=== PATIENT | male | born 1940 | race Caucasian/White ===

== ENCOUNTER → 2017-09-29 | Outpatient (CLI) | payer OTHER ==
--- NOTE | 2017-09-30 11:33 | RSPPFT ---
DATE OF PROCEDURE: 09/29/17 COMMENTS: VOLUMES DYNAMIC: FVC mildly reduced; FEV1 moderately reduced. STATIC: RV severely increased; FRC moderately increased; TLC normal. FLOWS: FEV1% and FEF 25-75 severely reduced. DIFFUSION: Moderately reduced. FLOW VOLUME LOOP: Pattern of variable intrathoracic airways obstruction. IMPRESSION: Moderate to severe obstructive ventilatory defect with reduction in diffusion and hyperinflation consistent with emphysema. There is improvement post-bronchodilator.
== END ==
LOC: PHRSP 08:28
PROVIDERS: ATTEND Internal Medicine
DX: J44.9 Chronic obstructive pulmonary disease, unspecified (principal)
CPT/HCPCS: 94060; 94620; 94726; 94729

== ENCOUNTER 2018-02-05 08:00 | Day surgery (SDC) | payer OTHER ==
[~2018-02-05] VITALS: Ht 162.6 cm; Wt 75.9 kg
[2018-02-05] MEDS ORDERED: IOHEXOL 350 MG/ML 50 ML BTL (for Cath Lab) OTHER ONE (08:01)
[2018-02-05 08:55] VITALS: BP 159/89; PULSE 76; RESP 18; TEMP 97.9; O2SAT 96
[2018-02-05 08:58] LABS: AUTOMATED NEUTROPHIL # 3.9 TH/MM3 (1.8-7.7); BASOPHIL % 0.7 % (0.0-2.0); EOSINOPHIL # 0.2 TH/MM3 (0-0.4); EOSINOPHIL % 3.9 % (0.0-4.0); HEMATOCRIT 44.2 % (39.0-51.0); HEMOGLOBIN 14.8 GM/DL (13.0-17.0); LYMPH % 23.6 % (9.0-44.0); LYMPHOCYTE # 1.4 TH/MM3 (1.0-4.8); MEAN CORPUSCULAR HEMOGLOBIN 30.1 PG (27.0-34.0); MEAN CORPUSCULAR HGB CONC 33.5 % (32.0-36.0); MEAN PLATELET VOLUME 9.7 FL (7.0-11.0); MONO % 6.5 % (0.0-8.0); MONOCYTE # 0.4 TH/MM3 (0-0.9); NEUT % 65.3 % (16.0-70.0); PLATELET COUNT 216 TH/MM3 (150-450); RED BLOOD COUNT 4.92 MIL/MM3 (4.50-5.90); RED CELL DISTRIBUTION WIDTH 14.1 % (11.6-17.2)
[2018-02-05] MEDS ORDERED: NS 1000P @30 MLS/HR (KVO) IV SCH (09:00)
[2018-02-05] MEDS ORDERED: RANI150T PO (09:08)
[2018-02-05] MEDS ORDERED: VITA100018 PO (09:08)
[2018-02-05] MEDS ORDERED: SYMB160A INH (09:08)
[2018-02-05] MEDS ORDERED: VENTAER INH (09:08)
[2018-02-05] MEDS ORDERED: SITA1TAB2 PO (09:08)
[2018-02-05] MEDS ORDERED: OMEGCAP PO (09:08)
[2018-02-05] MEDS ORDERED: LISI20TA PO (09:08)
[2018-02-05] MEDS ORDERED: ECASA81 PO (09:08)
[2018-02-05 09:09] LABS: INTERNATIONAL NORMALIZED RATIO 1.1 RATIO
[2018-02-05 09:12] LABS: BICARBONATE 28.5 MEQ/L (21.0-32.0); CALCIUM 9.3 MG/DL (8.5-10.1); CREATININE 1.32 MG/DL (0.60-1.30)
[2018-02-05] MEDS ORDERED: VERAPAMIL HCL 5 MG/2 ML VIAL ONE (10:06)
[2018-02-05] MEDS ORDERED: HEPARIN SODIUM - IV 10,000 UNITS/10 ML VIAL ONE (10:06)
[2018-02-05] MEDS ORDERED: HEPARIN-NS/PF FLUSH BAG 2,000 ML IV FLUSH ONE (10:06)
[2018-02-05] MEDS ORDERED: NITROGLYCERIN INJ 5 ML ONE (10:06)
[2018-02-05] MEDS ORDERED: MIDAZOLAM HCL 2 MG/2 ML VIAL ONE (10:16)
--- NOTE | 2018-02-05 11:27 | CATHPROC ---
[employer] HIS Report Study Information Study Number Admission Scheduled Start Study Start [id number] Feb 05 2018 8:00AM 02/05/2018 Feb 05 2018 9:13AM [facility] Cardiac Catheterization Admit Source Facility Department Other [facility] - Gas Technician Physician and Clinical Staff Initial Praful Capellan Mixed Crop Farmer Rocio Madrigal RN Other cathlab, cathlab Recorder Mikhail Caraballo RCIS(BS) Scrub Liz ErvinRT(R) Procedures Performed Procedure Location (Site) Vessel Name Coronary Angiograms LCA Left Coronary Coronary Angiograms RCA Right Coronary Equipment Time Practice Advisor Description Size Mfg Part Number Used/Scraped CATHETER, FR5 SWAN NUHA 09:59 [employer] FR 5 [id number] *[id number] Used MONITOR TRANSDUCER, TRUWAVE [id number] 09:59 [employer] * Used W/STOCKCOCK *[id number] [id number] *[id number] [id number] *[id number] 09:59 [employer] PACK, CCL CUSTOM * Used *[id number] 09:59 [employer] SUPPORT, ARTERIAL ADULT [id number] *[id number] Used BAND, RADIAL COMPRESSION TR [id number] 11:02 [employer] 24CM Used SHORT 24 *[id number] 09:59 [employer] WIRE, EXCHANGE 260CM 3MMJ 260CM Used *[id number] PROBE COVER, STERILE [id number] 09:59 [employer] MEDICAL * Used ULTRASOUND W/ GEL *[id number] 09:59 NAMIC MANIFOLD, 4 PORT * Used *[id number] 09:59 [employer]ED OMNIPAQUE, 350 MG, 150ML 150ML [id number] Used [id number] 09:59 [facility] BLANKET,WARM AIR CCL * Used *[id number] SHEATH, FR6 TRANSRADIAL RM*[id number] 09:59 [employer] FR 6 Used SLENDER 10CM *[id number] SHEATH, FR6 TRANSRADIAL RM*[id number] 09:59 [employer] FR 6 Used SLENDER 10CM *[id number] Equipment Model, Serial, Lot Number and Expiration Data Description Model Number Serial Number Lot Number Expiration Date BAND, RADIAL COMPRESSION TR [id number] 12-10-2020 SHORT 24 History: Allergies Allergy Reaction Erfcfqk-Mju-Xwf Reductase MUSCLE ACHES Inhibitor History: Risk Factors Family History of Hypertension Dyslipidemia Previous MO Previous Heart Failure Premature CAD Yes Yes Yes Yes Yes Prior Valve Prior PCI Prior PCIDate Prior CABG Surgery No Yes 11/10/2012 No Cerebrovascular Peripheral Artery Chronic Lung On Dialysis Diabetes Disease Disease Disease No No No No No History: Symptoms/Diagnosis Selection Items SOB History: Stress Tests Stress or Imaging Studies Performed No History: Other Disease Selection Items CAD HTN History: MO/CV Data Previous Cath Date 11/10/2012 History: Other Current Smoker Method Quit Packs a Day Years Used Pack Years No Cigarettes 5 Years Ago 2 40 80 Labs Hgb (g/dl) Hct (%) WBC (l/cumm) Platelets (thousands) 11.60-17.00 35.00-51.00 4.00-11.00 150.00-450.00 14.8 44.2 6 216 Creatinine (mg/dl) 0.50-1.30 1.3 INR (PTT:PT) 0.90-1.10 1.1 Medication Medication Total Dose (Bolus/Oral) Medication Total Dosage/Unit 1% XYLOCAINE 6 mL FENTANYL 50 mcg RADIAL COCKTAIL 5 mL (Bolus) Medications (Bolus/Oral) Medication Time Given Dosage/Unit Administered By Reason 1% XYLOCAINE 02/05/2018 10:40:33 AM 3 mL Praful Eduardo 3 mL 1% XYLOCAINE given in lab by Praful Eduardo in Right Radial via Subcutaneous. FENTANYL 02/05/2018 10:41:23 AM 50 mcg Rocio Madrigal 50 mcg FENTANYL given in lab by Rocio Madrigal, RN in Left Antecubital via Peripheral IV. Ordered by Praful Eduardo. Ntg 200mcg Verapamil 2.5mg Heparin RADIAL COCKTAIL 02/05/2018 10:42:13 AM 5 mL (Bolus) Praful Eduardo 3000U 5 mL (Bolus) RADIAL COCKTAIL given in lab by Praful Eduardo in Right Radial via Radial. Using [S olution Name]. Reason: Ntg 200mcg Verapamil 2.5mg Heparin 3000U. 1% XYLOCAINE 02/05/2018 10:44:10 AM 3 mL Praful Eduardo 3 mL 1% XYLOCAINE given in lab by Praful Eduardo in Right Antecubital via Subcutaneous. Medication (Drip) Medication Time Given Dosage/Unit Concentration/Unit Diluent (ml) Solutio n IV Solutions 02/05/2018 10:05:33 AM 0 mL (IV) 500 NaCl .9 Patient arrived on IV Solutions given by cathlab, cathlab in Left Antecubital via Peripheral IV. Pump /Drip Flow = 20 ml/hr using NaCl .9. Ordered by Praful Eduardo Initial Case Assessment Cardiovascular HR Rhythm NIBP Chest Pain 75 nsr 105/50 0 Edema Present Skin color Skin None Normal Warm Dry Circulatory - Right Pulses Dorsalis Pedis Femoral Radial 1 2 2 Scale (0,1,2,3,4,d) Circulatory - Left Pulses Dorsalis Pedis Femoral Radial 1 2 Scale (0,1,2,3,4,d) Neurological State Oriented to time-place- Alert Moves all extremities person Respiration - General Respiration Rate SpO2 (%) (B/min) 15 98 Final Case Assessment Cardiovascular HR Rhythm NIBP Chest Pain 68 nsr 152/79 0 Edema Present Skin color Skin None Normal Warm Dry Circulatory - Right Pulses Dorsalis Pedis Femoral Radial 1 2 2 Scale (0,1,2,3,4,d) Circulatory - Left Pulses Dorsalis Pedis Femoral Radial 1 2 Scale (0,1,2,3,4,d) Neurological State Oriented to time-place- Alert Moves all extremities person Respiration - General Respiration Rate SpO2 (%) (B/min) 15 98 Chronological Log Time Study Chronological Log 10:05:24 Patient arrived via Bed. 10:05:24 Patient Name, D.O.B, / Armband Verified By R.N. 10:05:25 Consent signed by the physician and the patient and verified by the Gas Technician staff. 10:05:25 Pre-op and post- op instructions given; patient acknowledges understanding of instructions. 10:05:26 Verbal Stimulation=2 Physical Stimulation=2 Airway=2 Respiration=2 TOTAL=8. (0=absent, 1=li mited, 2=present) 10:05:27 Presedation assessment performed by Gas Technician RN. 10:05:27 Allens test performed on the right radial and ulnar artery. 10:05:28 Immediate Presedation assesment performed by physician. 10:05:28 Patient has been NPO for More than 6Hrs. 10:05:29 Skin Breakdown- none per patient 10:05:30 Patient Warmer Placed on the Table. 10:05:30 Mitesh Prominences Protected 10:05:32 A # 20 IV was noted in the Antecubital (left). Grade = 0 Patient arrived on IV Solutions given by cathlab, cathlab in Left Antecubital via Peripheral IV . Pump/Drip Flow = 20 10:05:33 ml/hr using NaCl .9. Ordered by Praful Eduardo 10:05:33 History and physical on the chart or being dictated. Vitals capture started with the following parameters, Patient=Adult, Interval=5 min, Initial Pr dwxife=814 mmHg, 10:11:17 Deflation Rate=5 mmHg, Cuff placed on Unknown Assessment: Initial Case, HR=75 BPM, Rhythm=nsr, PLHZ=438/50 mmhg, Chest Pain=0, Edema=None, [place]=Normal, Skin = Warm, Dry Right Pulses: Roger Ped=1, Femoral=2, Radial=2 10:11:18 Left Pulses: Roger Ped=1, Femoral=2 Neurological: State=Alert, Ox3, WINKLER Respiration: Resp=15 B/min, SpO2=98 % 10:11:32 Reference ECG taken 10:11:59 HR=53 bpm, VAJO=500/50 mmhg, SpO2=97.0 %, Resp=19 B/min, Pain=0, Kelli=10, Sweeney=2 10:14:49 Right radial, right brachial, and groin(s) prepped with 2% chlorhexidine, and draped after a 3 min. waiting time. 10:17:18 HR=54 bpm, PARA=961/87 mmhg, SpO2=96.0 %, Resp=13 B/min, Pain=0, Kelli=10, Sweeney=2 10:21:55 HR=55 bpm, BJHL=675/83 mmhg, SpO2=97.0 %, Resp=13 B/min, Pain=0, Kelli=10, Sweeney=2 10:24:00 MD paged 10:26:00 Pressure channel 1 zeroed. 10:26:54 HR=61 bpm, JVWF=725/89 mmhg, SpO2=96.0 %, Resp=15 B/min, Pain=0, Kelli=10, Sweeney=2 10:31:57 HR=58 bpm, VZCP=391/87 mmhg, SpO2=98.0 %, Resp=14 B/min, Pain=0, Kelli=10, Sweeney=2 10:35:56 MD arrived. 10:35:58 Contrast Scanned 10:35:59 Immediate Presedation assesment performed by physician. 10:36:56 HR=60 bpm, XRZV=191/84 mmhg, SpO2=97.0 %, Resp=17 B/min, Pain=0, Kelli=10, Sweeney=2 Time Out. Correct patient, correct procedure, correct physician, power injector not loaded with contrast with surgical 10:40:04 team present. Time Out Concurred by MD and individual staff in procedure. :: Case Start :: Verbal Stimulation=2 Physical Stimulation=2 Airway=2 Respiration=2 TOTAL=8. (0=absent, 1=li mited, 2=present) 10:40:33 3 mL 1% XYLOCAINE given in lab by Praful Eduardo in Right Radial via Subcutaneous. 50 mcg FENTANYL given in lab by Rocio Madrigal RN in Left Antecubital via Peripheral IV. Order ed by Jayce, 10:41:23 Praful Anderson. 10::54 Access site was Right Radial Artery. 10:42:01 HR=57 bpm, ZJQX=251/84 mmhg, SpO2=97.0 %, Resp=15 B/min, Pain=0, Kelli=10, Sweeney=2 A SHEATH, FR6 TRANSRADIAL SLENDER 10CM FR 6 was advanced into the Radial (right) using the Perc utaneous 10:42:02 technique. 5 mL (Bolus) RADIAL COCKTAIL given in lab by Praful Eduardo in Right Radial via Radial. Us ing [Solution Name]. 10:42:13 Reason: Ntg 200mcg Verapamil 2.5mg Heparin 3000U. 10:44:10 3 mL 1% XYLOCAINE given in lab by Praful Eduardo in Right Antecubital via Subcutaneous . 10:46:27 Access site was Right Brachial Vein. A SHEATH, FR6 TRANSRADIAL SLENDER 10CM FR 6 was advanced into the Brach. Vein (right) using the Percutaneous :46:37 technique. 10:46:54 A CATHETER, FR5 SWAN NUHA MONITOR FR 5 was inserted via Brach. Vein (right) 10:47:02 HR=75 bpm, EPKS=724/79 mmhg, SpO2=94.0 %, Resp=17 B/min, Pain=0, Kelli=10, Sweeney=2 Recorded Pressure: PCW, HR=78, Condition=Condition 1 10:48:39 (Pulmonary Capillary Wedge) PCW 10:50:00 Saturation: Site=PA (Pulmonary Artery) , O2=75.9 %, Hgb=14.8 gm/dl, Condition=Condition 1. Used in calculation. Recorded Pressure: MPA, HR=72, Condition=Condition 1 10:50:52 (Main Pulmonary Artery) MPA 34 10:51:06 Saturation: Site=Ao (Aorta) , O2=97.4 %, Hgb=14.8 gm/dl, Condition=Condition 1. Used in sabiha culation. Recorded Pressure: RV, HR=61, Condition=Condition 1 10:52:05 (Right Ventricle) RV 36 10:52:30 HR=66 bpm, PVCY=473/79 mmhg, SpO2=94.0 %, Resp=16 B/min, Pain=0, Kelli=10, Sweeney=2 Recorded Pressure: RA, HR=66, Condition=Condition 1 10:52:30 (Right Atrium) RA 12 10:52:48 Rentz Nuha Catheter Removed A JR 4.0 INFINITI CATHETER FR 5 was advanced over a wire. OMNIPAQUE, 350 MG, 150ML 150ML was us ed for 10:52:48 injections. Recorded Pressure: Ao, HR=73, Condition=Condition 1 10:55:12 (Aorta) Ao 142/69/99 10:55:38 The RCA was injected and visualized at various angles. OMNIPAQUE, 350 MG, 150ML 150ML used . After removing the current catheter a JL 3.5 INFINITI CATHETER FR 5 was advanced over a WIRE, E XCHANGE 260CM 10:56:39 3MMJ 260CM. 10:57:35 HR=80 bpm, MYLO=598/94 mmhg, SpO2=95.0 %, Resp=16 B/min, Pain=0, Kelli=10, Sweeney=2 10:59:06 The LCA was injected and visualized at various angles. OMNIPAQUE, 350 MG, 150ML 150ML used . 11:01:59 HR=74 bpm, AFXV=637/79 mmhg, SpO2=96.0 %, Resp=15 B/min, Pain=0, Kelli=10, Sweeney=2 11:03:00 Catheter was removed 11:03:04 Activated Clotting Time Drawn 11:03:44 Case End Assessment: Final Case, HR=68 BPM, Rhythm=nsr, UYTN=215/79 mmhg, Chest Pain=0, Edema=None, [place]=Normal, Skin = Warm, Dry Right Pulses: Roger Ped=1, Femoral=2, Radial=2 11:03:52 Left Pulses: Roger Ped=1, Femoral=2 Neurological: State=Alert, Ox3, WINKLER Respiration: Resp=15 B/min, SpO2=98 % 11:04:08 No case complications noted. 11:04:08 Cine recording checked. 11:04:10 Bedside Report will be given. Radial Compression Device Used. 13 mLs of air placed in BAND, RADIAL COMPRESSION TR SHORT 24 24 CM. Affected 11:04:14 hand 95 % O2 saturation. 11:04:27 Verbal Stimulation=2 Physical Stimulation=2 Airway=2 Respiration=2 TOTAL=8. (0=absent, 1=li mited, 2=present) 11:04:34 A Left and Right Heart Cath was performed. 11:07:06 HR=74 bpm, NIBP=80/55 mmhg, SpO2=95 %, Resp=15 B/min, Pain=0, Kelli=10, Sweeney=2 11:07:25 ACT (Normal Range 90-180) = 234 Vitals capture started with the following parameters, Patient=Adult, Interval=5 min, Initial Pr avrcyu=960 mmHg, 11:08:44 Deflation Rate=5 mmHg, Cuff placed on Unknown 11:10:35 HR=68 bpm, DNOY=062/64 mmhg, SpO2=95 %, Resp=16 B/min, Pain=0, Kelli=10, Sweeney=2 11:14:53 HR=62 bpm, XOIJ=787/77 mmhg, Resp=16 B/min, Pain=0, Kelli=10, Sweeney=2 11:15:34 Vitals capture stopped. 11:15:47 Patient moved to stretcher End Study - Contrast Media Used In Study Contrast Total Opened (mL) Total Used (mL) Total Wasted (mL) Omnipaque 50 50 0 End Study - Maximum Contrast Load Max Contrast Load (mL) 292.0 End Study - Radiation Exposure Fluoro Time (minutes) 3.3 End Study - Patient Disposition Complications Transferred To Interventional Outcome No Gas Technician Holding No attempt made
[2018-02-05] MEDS ORDERED: MISC INFORMATION XX ONE (11:30)
[2018-02-05] MEDS ORDERED: PAPAVERINE INJ 60 MG, NITROGLYCERIN INJ 100 MCG, DILTIAZEM INJ 100 MG in SODIUM CHLORID... IRRIGATION SCH (14:45)
[2018-02-05 14:57] LABS: BILIRUBIN, URINE NEG (NEG); BLOOD, URINE NEG (NEG); GLUCOSE,URINE NEG (NEG); KETONE, URINE NEG (NEG); NITRITE,URINE NEG (NEG); PH, URINE 6.5 (5.0-8.5); SQUAMOUS EPITHELIAL CELL URINE <1 /hpf (0-5); URINE COLOR YELLOW (YELLW/STRAW); URINE LEUKOCYTE ESTERASE NEG (NEG)
[2018-02-05 15:17] LABS: ALBUMIN 3.3 GM/DL (3.4-5.0); ALT (GPT) 20 U/L (12-78); AST (GOT) 11 U/L (15-37); DIRECT BILIRUBIN ADULT 0.1 MG/DL (0.0-0.2)
[2018-02-05 15:18] LABS: ALKALINE PHOSPHATASE 101 U/L (45-117); INDIRECT BILIRUBIN 0.3 MG/DL (0.0-0.8); TOTAL BILIRUBIN ADULT 0.4 MG/DL (0.2-1.0); TOTAL PROTEIN 7.4 GM/DL (6.4-8.2)
--- NOTE | 2018-02-05 15:52 | RADRPT ---
EXAM DATE/TIME: 02/05/2018 14:53 [facility] COMPARISON: No previous studies available for comparison. INDICATIONS : PreOp Cardiac surgery. MEDICAL HISTORY : Hypertension. Chronic obstructive pulmonary disease. Carcinoma, prostate. Coronary artery disease. Di abetes. Dyspnea. Respiratory infection. Aortic stenosis. SURGICAL HISTORY : None. ENCOUNTER: Initial ACUITY: 1 day PAIN SCORE: 0/10 LOCATION: Bilateral legs. TECHNIQUE: Venous ultrasound of the left and right leg was performed from the inguinal ligament to the proximal calf. Real-time, color Doppler and spectral tracing, compression and augmentation techniques were us ed. FINDINGS: RIGHT LEG: There is normal compressibility of the deep venous system from the inguinal region to the proximal ca lf. No echogenic clot is seen in the lumen of the common femoral, femoral, popliteal, and posterior tibial veins. There is a normal response of the venous system to proximal and distal augmentation an d respiration. LEFT LEG: There is normal compressibility of the deep venous system from the inguinal region to the proximal ca lf. No echogenic clot is seen in the lumen of the common femoral, femoral, popliteal, and posterior tibial veins. There is a normal response of the venous system to proximal and distal augmentation an d respiration. CONCLUSION: 1. No evidence of deep venous thrombosis. Efrain Yu MD on February 05, 2018 at 15:47 Board Certified Radiologist. This report was verified electronically.
--- NOTE | 2018-02-05 15:52 | RADRPT ---
EXAM DATE/TIME: 02/05/2018 15:00 [facility] COMPARISON: No previous studies available for comparison. INDICATIONS : PreOp cardiac surgery. MEDICAL HISTORY : Coronary artery disease. Diabetes. Dyspnea. Respiratory infection. Aortic stenosis. SURGICAL HISTORY : None. ENCOUNTER: Initial ACUITY: 1 day PAIN SCORE: 0/10 LOCATION: Bilateral legs. GREATER SAPHENOUS VEIN THIGH: PROXIMAL: Right 6 mm Left 6 mm MID: Right 3 mm Left 2 mm DISTAL: Right 4 mm Left 2 mm CALF: PROXIMAL: Right 2 mm Left Non-visualized MID: Right 2 mm Left Non-visualized DISTAL: Right 1 mm Left Non-visualized FINDINGS: The venous system of the lower extremities are patent by color Doppler imaging. Measurements of the leg veins (in mm) are listed above. CONCLUSION: 1. Venous mapping as above Efrain Yu MD on February 05, 2018 at 15:50 Board Certified Radiologist. This report was verified electronically.
--- NOTE | 2018-02-05 15:53 | PD.CAR.PN ---
CVT Progress Note Subjective/Hospital Course: pt seen and evaluated / full consult to follow pt scheduled for AVR/ CABG Th02/26 sts data discussed with pt RISK SCORES About the STS Risk Calculator Procedure: AV Replacement + CAB Risk of Mortality: 3.55% Morbidity or Mortality: 24.009% Long Length of Stay: 13.603% Short Length of Stay: 25.532% Permanent Stroke: 1.965% Prolonged Ventilation: 15.191% DSW Infection: 0.522% Renal Failure: 7.412% Reoperation: 9.774% Objective: Vital Signs Date Time Temp Pulse Resp B/P (MAP) Pulse Ox O2 Delivery O2 Flow Rate FiO2 02/05/18 11:30 97 Room Air 02/05/18 08:55 97.9 76 18 159/89 (112) 96 Labs: Laboratory Tests Test 02/05/18 08:40 02/05/18 11:50 White Blood Count 6.0 TH/MM3 (4.0-11.0) Red Blood Count 4.92 MIL/MM3 (4.50-5.90) Hemoglobin 14.8 GM/DL (13.0-17.0) Hematocrit 44.2 % (39.0-51.0) Mean Corpuscular Volume 90.0 FL (80.0-100.0) Mean Corpuscular Hemoglobin 30.1 PG (27.0-34.0) Mean Corpuscular Hemoglobin Concent 33.5 % (32.0-36.0) Red Cell Distribution Width 14.1 % (11.6-17.2) Platelet Count 216 TH/MM3 (150-450) Mean Platelet Volume 9.7 FL (7.0-11.0) Neutrophils (%) (Auto) 65.3 % (16.0-70.0) Lymphocytes (%) (Auto) 23.6 % (9.0-44.0) Monocytes (%) (Auto) 6.5 % (0.0-8.0) Eosinophils (%) (Auto) 3.9 % (0.0-4.0) Basophils (%) (Auto) 0.7 % (0.0-2.0) Neutrophils # (Auto) 3.9 TH/MM3 (1.8-7.7) Lymphocytes # (Auto) 1.4 TH/MM3 (1.0-4.8) Monocytes # (Auto) 0.4 TH/MM3 (0-0.9) Eosinophils # (Auto) 0.2 TH/MM3 (0-0.4) Basophils # (Auto) 0.0 TH/MM3 (0-0.2) CBC Comment DIFF FINAL Differential Comment Prothrombin Time 11.0 SEC (9.8-11.6) Prothromb Time International Ratio 1.1 RATIO Activated Partial Thromboplast Time 26.7 SEC (24.3-30.1) Blood Urea Nitrogen 21 MG/DL (7-18) Creatinine 1.32 MG/DL (0.60-1.30) Random Glucose 181 MG/DL (74-106) Calcium Level 9.3 MG/DL (8.5-10.1) Sodium Level 144 MEQ/L (136-145) Potassium Level 4.2 MEQ/L (3.5-5.1) Chloride Level 110 MEQ/L (98-107) Carbon Dioxide Level 28.5 MEQ/L (21.0-32.0) Anion Gap 6 MEQ/L (5-15) Estimat Glomerular Filtration Rate 53 ML/MIN (>89) Total Bilirubin 0.4 MG/DL (0.2-1.0) Direct Bilirubin 0.1 MG/DL (0.0-0.2) Indirect Bilirubin 0.3 MG/DL (0.0-0.8) Aspartate Amino Transf (AST/SGOT) 11 U/L (15-37) Alanine Aminotransferase (ALT/SGPT) 20 U/L (12-78) Alkaline Phosphatase 101 U/L (45-117) Total Protein 7.4 GM/DL (6.4-8.2) Albumin 3.3 GM/DL (3.4-5.0) Urine Color YELLOW (YELLW/STRAW) Urine Turbidity CLEAR (CLEAR) Urine pH 6.5 (5.0-8.5) Urine Specific [place] 1.019 (1.002-1.035) Urine Protein NEG mg/dL (NEG-TRACE) Urine Glucose (UA) NEG mg/dL (NEG) Urine Ketones NEG mg/dL (NEG) Urine Occult Blood NEG (NEG) Urine Nitrite NEG (NEG) Urine Bilirubin NEG (NEG) Urine Urobilinogen LESS THAN 2.0 MG/DL (LESS Urine Leukocyte Esterase NEG (NEG) Urine WBC LESS THAN 1 /hpf (0-5) Urine Squamous Epithelial Cells <1 /hpf (0-5) Microscopic Urinalysis Comment CULT NOT INDICATED Result Diagram: 02/05/18 0840 02/05/18 0840 Cyndie Gordon Feb 05, 2018 15:53
--- NOTE | 2018-02-05 15:56 | RADRPT ---
EXAM DATE/TIME: 02/05/2018 15:37 [facility] COMPARISON: No previous studies available for comparison. INDICATIONS : Evaluate for pneumonia, pneumothorax, or communicable disease. Pre op AVR. MEDICAL HISTORY : None. SURGICAL HISTORY : None. ENCOUNTER: Initial ACUITY: 1 day PAIN SCORE: 0/10 LOCATION: Bilateral chest FINDINGS: The cardiac silhouette is normal in transverse diameter. There is parenchymal scarring on the left. T here is no evidence of pneumonia. There is a questionable 5 mm nodule in the right midlung. CT scan is recommended for further evaluation if clinically indicated. Malignancy is not excluded. There is p rominence of the aortic knob is with calcification characteristic of atherosclerotic vascular disease . CONCLUSION: 1. Left basilar scarring. 2. Possible nodule right lung. CT scan is recommended for further evaluation if clinically indicated. 3. Efrain Yu MD on February 05, 2018 at 15:52 Board Certified Radiologist. This report was verified electronically.
--- NOTE | 2018-02-05 16:05 | RADRPT ---
EXAM DATE/TIME: 02/05/2018 15:47 [facility] COMPARISON: CHEST PA & LAT, February 05, 2018, 15:37. INDICATIONS : Pre op aortic valve replacement RADIATION DOSE: 9.64 CTDIvol (mGy) MEDICAL HISTORY : Hypertension. Diabetes mellitus type 1. SURGICAL HISTORY : None. ENCOUNTER: Initial ACUITY: 1 day PAIN SCALE: 1/10 LOCATION: chest TECHNIQUE: Volumetric scanning of the chest was performed. Using automated exposure control and adjustment of t he mA and/or kV according to patient size, radiation dose was kept as low as reasonably achievable to obtain optimal diagnostic quality images. DICOM format image data is available electronically for r eview and comparison. Follow-up recommendations for detected pulmonary nodules are based at a minimum on nodule size and pa tient risk factors according to Fleischner Society Guidelines. FINDINGS: LUNGS: Right lung is grossly clear. No pulmonary nodules are demonstrated. The finding noted on the recent c hest x-ray is a nipple shadow. There is a focal area of parenchymal consolidation in the posterior le ft lower lung measuring approximately 3 cm. There is some adjacent nodular infiltrates in the left florian ng base. Otherwise the rest of the left lung is clear and well-aerated. PLEURAE: There is no pleural thickening or pleural effusion. MEDIASTINUM: The heart and great vessels demonstrate no acute abnormality. There is no mediastinal or hilar lymph adenopathy. Atherosclerotic changes and coronary calcifications. Small pericardial effusion. AXILLAE: Within normal limits. No lymphadenopathy. MUSCULOSKELETAL: Within normal limits for patient age. Primary bony degenerative changes. MISCELLANEOUS: The visualized upper abdominal organs demonstrate no acute abnormality. CONCLUSION: 1. Focal area of probable consolidation in the posterior left lower lung measuring 3.1 cm with some a djacent scattered nodular infiltrates in the left lung base. These findings are nonspecific and can b e an inflammatory process versus neoplastic disease. Therefore, recommend a followup noncontrast CT t horax an approximately 2-3 weeks after appropriate medical therapy. If the findings in the left lung base have not resolved, then recommend a PET/CT to evaluate for focal hypermetabolic activity. 2. The right lung is clear. No pulmonary nodules are demonstrated. 3. Small pericardial effusion. Renny Norris MD on February 05, 2018 at 15:59 Board Certified Radiologist. This report was verified electronically.
--- NOTE | 2018-02-05 16:19 | MB ---
cc: Cyndie Gordon DATE: 02/05/2018 HISTORY OF PRESENT ILLNESS: A 77-year-old patient of NOEMI Velázquez and also Dr. Harding, who has been complaining of shortness of breath, fatigue for the past few months, has history of aortic stenosis, which has been followed by Dr. Harding. He also has a history of coronary artery disease and has had history of prior [place] with stenting x 2 to the RCA back in 2012, at that time by Dr. Migue Dowling. The patient underwent cardiac catheterization today, which showed EF of 50%, left main disease of 10%, proximal LAD 30%, the circumflex was 50%, the RCA 30 with a ramus of 70%. He has history of aortic stenosis and his last echo showed some diastolic dysfunction, aortic valve area of 0.78, mild aortic insufficiency, no tricuspid or mitral valve disease. We were consulted for coronary artery bypass graft x 1, aortic valve replacement. PAST MEDICAL HISTORY: Significant for aortic stenosis, coronary artery disease, chronic kidney disease stage III, COPD with emphysema, diabetes mellitus type 2, hyperlipidemia, hypertension, intermittent claudication, ischemic cardiomyopathy, erectile dysfunction, metabolic syndrome, neoplasm of the prostate, obesity, proteinuria. PAST SURGICAL HISTORY: Include drug-eluting stent x 2 in 2012, radical prostatectomy in 2014. ALLERGIES: THE PATIENT HAS ALLERGIES TO STATINS WHICH CAUSE MYOPATHIES. HOME MEDICATIONS: Include aspirin, Januvia, lisinopril, Zantac, Crestor, Symbicort, Ventolin inhaler and vitamin D3. FAMILY HISTORY: Mother still alive at 95, healthy. Father from a stroke. SOCIAL HISTORY: The patient with second marriage, has 2 children of his own. 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 Smoked for 40 years, 3 packs. He quit for about 10 years and then his last time he quit, 5 years ago completely. Rare alcohol. REVIEW OF SYSTEMS: GENERAL: No night sweats, fever, heat and cold intolerance. SKIN: No psoriasis, itching or hives. HEENT: No blurred vision, hearing loss. RESPIRATORY: Positive for shortness of breath. No cough. CARDIOVASCULAR: As above in the HPI. GASTROINTESTINAL: No diarrhea or vomiting. GENITOURINARY: No burning, frequency, urgency. CENTRAL NERVOUS SYSTEM: No history of TIA, CVA or seizure disorder. ENDOCRINOLOGY: Positive for diabetes. No hypothyroidism. PHYSICAL EXAMINATION: VITAL SIGNS: Blood pressure 160/80, heart rate of 76, temperature T-max 97.9, room air sat 97. GENERAL: Awake, alert, in no acute distress. HEENT: Head is normocephalic, atraumatic. Pupils are equal and reactive. Oral mucosa pink, moist. NECK: Supple. No JVD. CARDIOVASCULAR: Heart sounds S1, S2. Regular rate and rhythm. He has a 3/6 systolic murmur. LUNGS: Clear to auscultation. No wheezes, rales or rhonchi. ABDOMEN: Soft, nontender. No masses or organomegaly. EXTREMITIES: Reveal no cyanosis, clubbing, or edema. LABORATORY DATA: Shows hemoglobin 14, hematocrit of 44. White cell count of 6, platelet count of 216. Sodium 144, potassium 4.2, BUN of 21, creatinine 1.32, AST of 11, ALT of 20. INR 1.1. Urinalysis is unremarkable. MRSA screen pending. Further testing to include leg vein mapping. A CT of the chest, the patient has had a recent carotid ultrasound 02/03/2018, which showed some 30-40% stenosis of the right common carotid artery. The left common carotid had about 30%. ASSESSMENT AND PLAN: This is a 77-year-old male with aortic stenosis, very mild AI, ejection fraction of 50%. Also, one-vessel coronary artery disease with prior stenting to the RCA, the stenosis is in the ramus, evaluation for coronary artery bypass graft x 1 with aortic valve replacement, probable tissue valve. Procedures, alternatives and risks have been discussed with the patient. He is agreeable to proceed. At this time, we will schedule the patient as an outpatient for 02/26/2018, which is a and further planning per Dr. Lisa Payan. NOEMI Berumen/TL , 03:30 PM , 04:19 PM
[2018-02-05 22:04] LABS: HEMOGLOBIN A1C 8.6 % (4.3-6.0)
--- NOTE | 2018-02-06 01:48 | MA ---
cc: Praful Eduardo DO DATE: 02/05/2018 PROCEDURE: Coronary angiogram, right heart catheterization, ultrasound-guided access. PREPROCEDURE DIAGNOSIS: Severe aortic stenosis by echo. POSTPROCEDURE DIAGNOSIS: Severe aortic stenosis, mild pulmonary hypertension, coronary artery disease. MEDICATIONS: Fentanyl 50 mcg, heparin 3000 units, nitro 200 mcg, verapamil 2.5 mg. CONTRAST USED: 50 mL FLUOROSCOPY: 3.3 minutes. MODERATE SEDATION: 0 minutes. ESTIMATED BLOOD LOSS: 10 mL PROCEDURAL SUMMARY: Jeanie Chan is a pleasant 77-year-old male who sees my partner, Dr. Harding, in the office and was found to have severe aortic stenosis. He was recommended cardiac catheterization in anticipation of aortic valve replacement. Risks, benefits and alternatives were explained to him and he consented to such. He was brought to the lab and prepped in the usual sterile fashion. The right radial artery was accessed using a modified Seldinger technique, placement of a 5/6 Welsh slender sheath. Right brachial vein was accessed using a modified Seldinger technique with ultrasound guidance and placement of a 5/6 Welsh slender sheath. Both were easily aspirated and flushed. A Elma-Avril catheter was advanced to a wedge position, and oxygenation saturations as well as pressures were done on a standard pullback throughout the heart. Elma-Avril catheter was removed. A JR4 was advanced over a J-wire to the ascending aorta and the JR4 was used for selective angiography of the right coronary artery system. This was exchanged out for a JL3.5, which was used for selective angiography of the left coronary artery system. The JL3.5 was removed over a J-wire. A radial band was placed over the arteriotomy site for hemostasis. Brachial sheath was planned to be removed once ACTs were appropriate. The patient left the cath lab radiology technician cardiovascularly stable. ANGIOGRAPHIC SUMMARY: Left main: Normal size vessel with adequate reflux and no significant disease. It trifurcates into an LAD, ramus and circumflex. LAD: Normal size vessel with 30% disease in the proximal portion. Distally, there is no significant disease, but it is overall tortuous. It gives off 1 major diagonal, which is overall small with no significant disease. Ramus: Normal size vessel with 70% lesion ostially. Left circumflex: Overall small to moderate sized vessel with diffuse 40% disease throughout. RCA: Normal size vessel. Multiple stents throughout the mid to distal portion which have in-stent restenosis of 20%. Distally gives off a PDA and a PLB, with the PDA having a small 70% lesion distally in the vessel that is around 1-1.5 mm at most, with little myocardium distal to it. HEMODYNAMIC SUMMARY: RA 9. RV 36/7, RV EDP 10. PA 34/18, mean PA 25. Wedge 13. Cardiac output 5.2. Cardiac index 2.9. IMPRESSIONS: 1. Severe aortic stenosis by echocardiogram. 2. Coronary artery disease with significant lesion of the ostial ramus. 3. Mild pulmonary hypertension. RECOMMENDATIONS: 1. Mr. Chan appears to have severe aortic stenosis by echocardiogram, and during his catheterization, was found to have a significant lesion in his ostial ramus. 2. He will be referred to CT surgery for consideration of AVR with 1-vessel bypass to his ramus. 3. He will be discharged home and his surgery will be planned electively. Thank you for allowing me to see Jeanie Chan. If there are any questions, please do not hesitate to call. DO AXEL Andres/JULIO C , 01:13 AM , 01:47 AM
--- NOTE | 2018-02-06 11:15 | EKG ---
Date Performed: 02/05/2018 Time Performed: 09:00:20 PTAGE: 77 years EKG: Sinus rhythm . Inferior infarct - age undetermined Abnormal ECG NO PREVIOUS TRACING DOCTOR: Efrain Franklin Interpretating Date/Time 02/06/2018 11:12:10
== END 2018-02-05 18:30 | disposition home or self-care (01) ==
LOC: HDIC 08:00 → HDOC 08:00
PROVIDERS: ATTEND Nuclear Medicine Nuclear Cardiology
DX: I35.2 Nonrheumatic aortic (valve) stenosis with insufficiency (principal); I25.10 Atherosclerotic heart disease of native coronary artery without angina pectoris; I12.9 Hypertensive chronic kidney disease with stage 1 through stage 4 chronic kidney disease, or unspecified chronic kidney disease; N18.3 Chronic kidney disease, stage 3 (moderate); E11.22 Type 2 diabetes mellitus with diabetic chronic kidney disease; J44.9 Chronic obstructive pulmonary disease, unspecified; I25.5 Ischemic cardiomyopathy; I31.3 Pericardial effusion (noninflammatory); E78.5 Hyperlipidemia, unspecified; I25.2 Old myocardial infarction; E66.9 Obesity, unspecified; Z79.4 Long term (current) use of insulin; Z79.82 Long term (current) use of aspirin; Z95.5 Presence of coronary angioplasty implant and graft; Z85.46 Personal history of malignant neoplasm of prostate; Z01.818 Encounter for other preprocedural examination
CPT/HCPCS: 71046; 71250; 80048; 80076; 81001; 82810; 83036; 85002; 85025; 85610; 85730; 86850; 86900; 86901; 87641; 93005; 93456; 93970; 93998; C1769; C1893; J1644; J2250; J3010; Q9967

== ENCOUNTER → 2018-02-25 | Outpatient (CLI) | payer OTHER ==
[~2018-02-25] MED LIST: ECASA81 PO; LISI20TA PO; OMEGCAP PO; RANI150T PO; SITA1TAB2 PO; SYMB160A INH; VENTAER INH; VITA100018 PO
== END ==
LOC: HRSP 11:58
PROVIDERS: ATTEND Thoracic Surgery (Cardiothoracic Vascular Surgery)
DX: I25.10 Atherosclerotic heart disease of native coronary artery without angina pectoris (principal); I35.0 Nonrheumatic aortic (valve) stenosis; F17.210 Nicotine dependence, cigarettes, uncomplicated
CPT/HCPCS: 94010

== ENCOUNTER 2018-02-26 07:30 | Inpatient (IN) | payer OTHER, MEDICARE ==
[~2018-02-26] VITALS: Ht 162.6 cm; Wt 81.0 kg
[2018-03-04] VITALS (8 sets, daily range): BP systolic 108–150; BP diastolic 49–90; PULSE 45–80; RESP 10–18; TEMP 94.6–97.6; O2SAT 95–99
[2018-03-04] MEDS ORDERED: PAPAVERINE INJ 60 MG, NITROGLYCERIN INJ 100 MCG, VERAPAMIL INJ 100 MG in SODIUM CHLORID... IRRIGATION SCH (05:45)
[2018-03-04] MEDS ORDERED: INSULIN REGULAR 100 UNITS in NS 100 ML IV PRN (05:45)
[2018-03-04] MEDS ORDERED: CEFAZOLIN 500 MG in NS IRR BTL 500 ML IRRIGATION SCH (05:45)
[2018-03-04] MEDS ORDERED: CHLORHEXIDINE GLUCONATE 4% SOLN 120 ML BTL TOPICAL SCH (05:45)
[2018-03-04] MEDS ORDERED: ceFAZolin 2 GM PREMIX 50 ML IV SCH (05:45)
[2018-03-04] MEDS ORDERED: SODIUM CHLORIDE 0.9% FLUSH 10 ML FLUSH IV FLUSH PRN ×3 (05:45→09:00)
[2018-03-04] MEDS ORDERED: METOPROLOL TARTRATE 25 MG TAB PO SCH (05:45)
[2018-03-04] MEDS ORDERED: SODIUM CHLORID 0.9% 500 ML IV PRN (06:00)
[2018-03-04] MEDS ORDERED: POVIDONE IODINE 5% (ANTISEPSIS KIT) 4 APPLICATIONS EACH NARE PRN (06:00)
[2018-03-04] MEDS ORDERED: CHLORHEXIDINE GLUCONATE 2 % 1 PACK (2 CLOTHS) TOPICAL PRN (06:00)
[2018-03-04] MEDS ORDERED: LACTATED RINGER'S 1000 ML IV PRN (06:00)
[2018-03-04] MEDS ORDERED: VANCOMYCIN HCL 1000 MG VIAL ONE (06:27)
[2018-03-04] MEDS ORDERED: HEPARIN SODIUM - SQ 10,000 UNITS/ML VIAL ONE (06:27)
[2018-03-04] MEDS ORDERED: methylPREDNISolone SOD SUCC 125 MG/2 ML VIAL ONE (06:27)
[2018-03-04] MEDS ORDERED: ceFAZolin 2 GM PREMIX 50 ML ONE (06:27)
[2018-03-04] MEDS ORDERED: ALBUMIN 25% INJ 50 ML IV ONE (07:46)
[2018-03-04] MEDS ORDERED: CALCIUM CHLORIDE 10% SOLN 1 GRAM/10 ML SYR ONE (07:46)
[2018-03-04] MEDS ORDERED: CUSTODIOL HTK IRR SOLN 2,000 ML ONE (07:47)
[2018-03-04] MEDS ORDERED: MANNITOL INJ 100 ML ONE (07:47)
[2018-03-04] MEDS ORDERED: SODIUM BICARBONATE 8.4% INJ 100 ML ONE (07:48)
[2018-03-04] MEDS ORDERED: HEPARIN SODIUM - IV 10,000 UNITS/10 ML VIAL ONE (07:48)
[2018-03-04] MEDS ORDERED: DEXTROSE 50% IN WATER 50 ML VIAL(D50) IV PUSH PRN (09:00)
[2018-03-04] MEDS ORDERED: ONDANSETRON HCL 4 MG/2 ML VIAL IV PUSH PRN (09:00)
[2018-03-04] MEDS ORDERED: NON-FORMULARY DRUG (Fish Oil-Cholecalciferol (Omega-3 Fish Oil/Vitamin) 1 CAP) PO SCH (09:00)
[2018-03-04] MEDS ORDERED: CALCIUM CHLORIDE 10% 1 GRAM/10 ML VIAL IV PUSH PRN (09:00)
[2018-03-04] MEDS ORDERED: ALBUMIN 5% INJ 250 ML IV PRN (09:00)
[2018-03-04] MEDS ORDERED: ASPIRIN 81 MG CHEW TAB PO SCH (09:00)
[2018-03-04] MEDS ORDERED: NON-FORMULARY DRUG (Lisinopril-Hctz 1 TAB) PO SCH (09:00)
[2018-03-04] MEDS ORDERED: Post-op Orders (for Pharmacy) OTHER ONE (09:00)
[2018-03-04] MEDS ORDERED: POTASSIUM CHLOR 20 MEQ PREMIX 100 ML IV PRN ×3 (09:00)
[2018-03-04] MEDS ORDERED: ACETAMINOPHEN 650 MG SUPP RECTAL PRN (09:00)
[2018-03-04] MEDS ORDERED: RESP: RACEPINEPHRINE 2.25% 0.5 ML NEB NEB PRN (09:00)
[2018-03-04] MEDS ORDERED: CALCIUM CHLORIDE INJ 1 GM in SODIUM CHLORIDE 0.9% INJ 100 ML IV PRN (09:00)
[2018-03-04] MEDS ORDERED: METOPROLOL TARTRATE 5 MG/5 ML VIAL IV PUSH PRN (09:00)
[2018-03-04] MEDS ORDERED: NON-FORMULARY DRUG (Ranitidine 150 MG) PO SCH (09:00)
[2018-03-04] MEDS ORDERED: ACETAMINOPHEN 325 MG TAB PO PRN (09:00)
[2018-03-04] MEDS ORDERED: MAGNESIUM SULFATE INJ 2 GM in SODIUM CHLORIDE 0.9% INJ 100 ML IV PRN ×4 (09:00)
[2018-03-04] MEDS ORDERED: POTASSIUM CHLORIDE 20 MEQ CONTROLLED RELEASE TAB PO PRN ×2 (09:00)
[2018-03-04] MEDS ORDERED: hydrALAZINE HCL 20 MG/ML VIAL IV PUSH PRN (09:00)
[2018-03-04] MEDS ORDERED: SODIUM BICARBONATE 8.4% SOLN 50 MEQ/50 ML VIAL IV PUSH PRN ×2 (09:00)
[2018-03-04] MEDS ORDERED: RESP: ALBUTEROL 2.5 MG/IPRATROPIUM 0.5 MG NEB (PRN) NEB (09:00)
--- NOTE | 2018-03-04 09:10 | PD.OP ---
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 Fernandez Surgeon: Lisa Payan Congressional Representative(s): EDWIN Mehta Operation and Findings: risks, benefits, complications, treatment options, and expected outcomes were discussed with the patient. The possibilities of reaction to medication, pulmonary aspiration, perforation of viscus, bleeding, recurrent infection, the need for additional procedures, failure to diagnose a condition, and creating a complication requiring transfusion or operation were discussed with the patient. The patient concurred with the proposed plan, giving informed consent. The site of surgery properly noted/marked. The patient was taken to Operating Room, identified as Jeanie Chan and the procedure verified as AVR, CABG, EVH, DELMI. A Time Out was held and the above information confirmed. Standard monitoring lines and Alvarez catheter were placed. General anesthesia was induced. The patient was prepped and draped in a sterile fashion. A median sternotomy was performed and electrocautery was used to obtain hemostasis. The pericardium was opened and the ascending aorta was found to be diffusely calcified up to the aortic arch. There was no site to safely cross clamp the aorta without significant risk to the patient. Due to this finding, the procedure was aborted. The leg wound was irrigated and closed in 2 layers. No saphenous vein was procured. Two 32 Urdu bilateral pleural chest tubes was were placed and secured to the skin with 0 silk suture. The sternum was closed with stainless steel wire. The fascia was closed with 1. PDS. The subcutaneous tissue was closed using a running 2-0 Vicryl suture. The skin was closed with 4- 0 Monocryl. Sterile dressings were placed. At the end of the operation, all sponge, instruments, and needle counts were correct. The patient was transferred to the CVICU in stable condition. Findings: PORCELAIN AORTA Complications: PLANNED PROCEDURE ABORTED ABOVE. Disposition: to CVICU in stable condition Lisa Payan MD Mar 04, 2018 09:10
--- NOTE | 2018-03-04 09:47 | RADRPT ---
EXAM DATE/TIME: 03/04/2018 10:24 [facility] COMPARISON: No previous studies available for comparison. INDICATIONS : Instrument verification. MEDICAL HISTORY : None. SURGICAL HISTORY : None. ENCOUNTER: Initial ACUITY: 1 day PAIN SCORE: Non-responsive. LOCATION: chest FINDINGS: A single view of the chest demonstrates no chest tubes endotracheal tube is in intact sternal wires. The cholecystectomy clips present. 2 wires overlying left lateral thoracic cavity I suspect are exter nal to the patient. Left-sided central line in good position . The cardiomediastinal contours are un remarkable. Osseous structures are intact. CONCLUSION: Intraoperative film reveals no retained foreign objects other than stated tubes and catheters as desc ribed above. Findings were directly related to the operating room Ty Lucas MD on March 04, 2018 at 9:43 Board Certified Radiologist. This report was verified electronically.
[2018-03-04] MEDS ORDERED: DEXMEDETOMIDINE INJ 200 MCG in SODIUM CHLORIDE 0.9% INJ 50 ML IV PRN (10:00)
[2018-03-04] MEDS ORDERED: CLEVIDIPINE INJ 50 ML IV PRN (10:00)
[2018-03-04] MEDS ORDERED: INSULIN REGULAR (IV INFUSION) 100 UNITS in SODIUM CHLORIDE 0.9% INJ 99 ML IV PRN (10:00)
[2018-03-04] MEDS: RESP: ALBUTEROL 2.5 MG/IPRATROPIUM 0.5 MG NEB (SCH) NEB ×3 (10:00→21:30)
[2018-03-04] MEDS ORDERED: ALBUTEROL SULFATE 90 MCG/ACT HFA 8 GM INHALER INH PRN (10:00)
[2018-03-04] MEDS: CHOLECALCIFEROL (VIT D3) 1000 UNIT TAB PO SCH (10:00)
[2018-03-04] MEDS: CLOPIDOGREL 75 MG TAB PO SCH (10:00)
[2018-03-04] MEDS ORDERED: PILL SPLITTER OTHER PRN (10:00)
[2018-03-04] MEDS ORDERED: fentaNYL CITRATE 250 MCG/5 ML AMP ONE (10:12)
[2018-03-04] MEDS ORDERED: MIDAZOLAM HCL 2 MG/2 ML VIAL ONE (10:12)
[2018-03-04] MEDS: ACETAMINOPHEN 1000 MG/100 ML 100 ML IV SCH ×3 (10:35→21:34)
[2018-03-04] MEDS: ASPIRIN EC 81 MG TABEC PO SCH (11:00)
--- NOTE | 2018-03-04 11:20 | RADRPT ---
EXAM DATE/TIME: 03/04/2018 10:19 [facility] COMPARISON: No previous studies available for comparison. INDICATIONS : Post CABG. MEDICAL HISTORY : None. SURGICAL HISTORY : None. ENCOUNTER: Initial ACUITY: 1 day PAIN SCORE: Non-responsive. LOCATION: Bilateral chest FINDINGS: A single view of the chest demonstrates the endotracheal tube, NG tube, bilateral chest tubes and nely rnal wire is are all in good position. I don't see any visible pneumothorax. Left subclavian central line in good position. No foreign objects are identified. The cardiomediastinal contours are unremark able. Osseous structures are intact. CONCLUSION: Lungs are grossly clear. Catheters and tubes in good position. Ty Lucas MD on March 04, 2018 at 11:17 Board Certified Radiologist. This report was verified electronically.
[2018-03-04] MEDS ORDERED: AMINOCAPROIC ACID INJ 250 MG/ML 20 ML VIAL IV ONE (12:00)
[2018-03-04] MEDS ORDERED: PHENYLEPHRINE HCL 10 MG/ML VIAL IV ONE (12:00)
[2018-03-04] MEDS ORDERED: LIDOCAINE HCL 1% PF 5 ML SYRINGE OTHER ONE (12:00)
[2018-03-04] MEDS ORDERED: MAGNESIUM SULFATE 1 GM/2 ML VIAL IV ONE (12:00)
[2018-03-04] MEDS ORDERED: ePHEDrine/NS 25 MG/5 ML SYRINGE IV ONE (12:00)
[2018-03-04] MEDS ORDERED: DEXMEDETOMIDINE HCL 200 MCG/2 ML VIAL IV ONE (12:00)
[2018-03-04] MEDS ORDERED: GLYCOPYRROLATE 1 MG/5 ML SYRINGE IV PUSH ONE (12:00)
[2018-03-04] MEDS ORDERED: PROPOFOL 500 MG/50 ML BTL IV ONE (12:00)
[2018-03-04] MEDS ORDERED: VECURONIUM BROMIDE 10 MG VIAL IV ONE (12:00)
[2018-03-04] MEDS: SODIUM CHLORIDE 0.9% FLUSH 10 ML FLUSH IV FLUSH SCH ×2 (12:09→21:34)
--- NOTE | 2018-03-04 12:14 | PD.CAR.PN ---
CVT Progress Note Subjective/Hospital Course: A 77-year-old patient of NOEMI Velázquez and also Dr. Harding, initially seen 02/05/18 , who had been complaining of shortness of breath, fatigue for the past few months, has history of aortic stenosis. He also has a history of coronary artery disease and has had history of prior [place] with stenting x 2 to the RCA back in 2012. He underwent cardiac catheterization 02/05/18 which showed EF of 50%, left main disease of 10%, proximal LAD 30%, the circumflex was 50%, the RCA 30 with a ramus of 70%. He has history of aortic stenosis and his last echo showed some diastolic dysfunction, aortic valve area of 0.78, mild aortic insufficiency, no tricuspid or mitral valve disease. We were consulted for coronary artery bypass graft x 1, aortic valve replacement. Pt was sent home and scheduled for elective surgery PAST MEDICAL HISTORY: Significant for aortic stenosis, coronary artery disease, chronic kidney disease stage III, COPD with emphysema, diabetes mellitus type 2 , hyperlipidemia, hypertension, intermittent claudication, ischemic cardiomyopathy, erectile dysfunction, metabolic syndrome, neoplasm of the prostate, obesity, proteinuria. PAST SURGICAL HISTORY: Include drug-eluting stent x 2 in 2012, radical prostatectomy in 2013. 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
--- NOTE | 2018-03-04 12:48 | MB ---
cc: Cyndie Gordon Sohit K MD DATE: 03/04/2018 HISTORY OF PRESENT ILLNESS: The patient is a 77-year-old male who was initially seen back on 02/05/2018. This is a patient of NOEMI Velázquez and Dr. Harding with a history of aortic stenosis and also a history of coronary artery disease with prior [place], stenting x 2 to the RCA in 2012. The patient underwent cardiac catheterization on the , which showed an ejection fraction of 50%, left main disease of 10%, the proximal LAD 30%, the circumflex was 50%, the RCA was 30 and the ramus had a 70% stenosis. He has a history of the aortic stenosis with an aortic valve area of 0.78. At that time, we were consulted to evaluate for coronary artery bypass graft x 1 with aortic valve replacement. The patient workup included a chest CT at the time which showed some atherosclerotic changes, some coronary calcifications. There was also some consolidation in the posterior left lower lobe with some scattered nodular infiltrates in the left base. Recommendation at that time was for a noncontrast CT thorax to be repeated in 3 weeks. No pulmonary nodules were identified. The patient underwent elective surgery today by Dr. Lisa Payan per the operative note. The pericardium was opened and the ascending aorta was found to be diffusely calcified up to the aortic arch. There was no site to safely cross clamped the aorta without significant risk to the patient. The procedure was aborted at that time. Dr. Payan did speak with the family. He underwent a median sternotomy. No saphenous vein was procured. He has been recommended for transcatheter aortic valve replacement. He is at increased risk for mortality. His risk of mortality initially was 3.55 but now being a nonsurgical candidate increases his risk and makes him more of a candidate for the transcatheter aortic valve replacement. PAST MEDICAL HISTORY: At this time, his past medical history includes: Aortic stenosis, coronary artery disease, chronic kidney disease stage III, COPD, emphysema, diabetes mellitus type 2, hyperlipidemia, hypertension, intermittent claudication, ischemic cardiomyopathy, erectile dysfunction, metabolic syndrome, neoplasm of the prostate, obesity, and proteinuria. PAST SURGICAL HISTORY: Include drug-eluting stent x 2 in 2012, radical prostatectomy 2013. ALLERGIES: ALLERGIC TO STATINS WHICH CAUSE MYOPATHIES. HOME MEDICATIONS: 1. Januvia. 2. Lisinopril. 3. Zantac. 4. Crestor. 5. Symbicort. 6. Ventolin inhaler. 7. Vitamin D3. 8. Aspirin. FAMILY HISTORY: Mother alive at age 95. Father from a stroke. SOCIAL HISTORY: This is the patient's second marriage, 2 children of his own. 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 He quit for about 10 years and the last time he quit completely was 5 years ago and rare alcohol. REVIEW OF SYSTEMS: Unobtainable. PHYSICAL EXAM: GENERAL: The patient is now extubated from surgery still somewhat sleepy. HEENT: Head is normocephalic, atraumatic. Pupils equal and reactive. Oral mucosa pink, moist. NECK: Supple. No JVD. CARDIOVASCULAR: Sounds S1, S2. 3/6 systolic murmur. He has got a dressing over his mid sternotomy. LUNGS: Diminished in the bases, otherwise clear to auscultation. ABDOMEN: Soft, nontender. No masses or organomegaly. EXTREMITIES: No cyanosis, clubbing, or edema. LABORATORY DATA: Pending. IMAGING: Chest x-ray postoperatively grossly clear, catheters in place including a mediastinal tube. IMPRESSION: Again, this is a 77-year-old patient who underwent an attempted AVR, coronary artery bypass x 2 aborted due to heavily calcified aortic arch. The STS data prior was greater than 3 or at 3.55 and now patient is not a surgical candidate. Evaluate for transcatheter aortic valve replacement. Comorbidities include coronary artery disease, COPD, diabetes mellitus, and cardiomyopathy. NOEMI Berumen MD JRT/SELAM , 12:26 PM , 12:46 PM
--- NOTE | 2018-03-04 15:29 | MB ---
cc: Ty Alberto MD DATE: 03/04/2018 INDICATION: Severe aortic valve stenosis. HISTORY OF PRESENT ILLNESS: This is a 77-year-old male who is followed by Dr. Harding in the outpatient setting. He has a history of severe aortic valve disease and prior myocardial infarction with percutaneous intervention to the right coronary artery. Recent cardiac catheterization did reveal moderate coronary disease, but no significant obstructive disease requiring intervention. Aortic valve area is severely reduced. He was planned for consideration of coronary bypass surgery and aortic valve replacement. He was taken to the operating room. The pericardium was opened, but the ascending aorta was found to be diffusely calcified up to the aortic arch. There is no site to safely cross-clamp, and therefore procedure was aborted. We were consulted for consideration of transcatheter aortic valve replacement. PAST MEDICAL HISTORY: Severe aortic valve stenosis, coronary artery disease, chronic kidney disease, COPD, emphysema, diabetes, hyperlipidemia, hypertension, claudication, ischemic cardiomyopathy. PAST SURGICAL HISTORY: Prior drug-eluting stents in 2012. ALLERGIES: STATINS. HOME MEDICATIONS: 1. Januvia. 2. Lisinopril. 3. Zantac. 4. Crestor. 5. Symbicort. 6. Ventolin. 7. Vitamin D. 8. Aspirin. FAMILY HISTORY: Denies family history of early cardiac disease or sudden cardiac . SOCIAL HISTORY: Does report smoked 3 packs a day for 40 years, quit about 10 years ago. REVIEW OF SYSTEMS: A 12-point review of system was performed and negative unless otherwise noted in History Of Present Illness, although the patient is very sedated. PHYSICAL EXAMINATION: VITAL SIGNS: Temperature 98.4, pulse is 70, blood pressure 110/51 mmHg. GENERAL: No distress. HEENT: Exam shows pupils reactive to light and accommodation. Extraocular movements are intact. NECK: No elevation of jugular venous distention. No thyromegaly. No lymphadenopathy, no carotid bruits. LUNGS: Clear to auscultation. CARDIOVASCULAR: Regular with a 3/6 crescendo decrescendo murmur at the right sternal border. ABDOMEN: Nontender, nondistended. Good bowel sounds. No hepatosplenomegaly. EXTREMITIES: Show no clubbing, cyanosis or edema. Good peripheral pulses. NEUROLOGIC: Cranial nerves intact. Motor, sensory grossly intact. LABORATORY DATA: WBC 6.0, hemoglobin 14.8, platelet count is 216. INR is 1.1. Sodium 144, potassium 4.2, BUN is 21, creatinine is 1.32. ASSESSMENT: 1. Severe aortic valve stenosis. 2. History of coronary artery disease. PLAN: He has severe calcific ascending aorta prohibitive to cross-clamp. We will need to consider transcatheter aortic valve replacement. We will allow him to make a recovery. We will have to review his catheterization films to see if the single vessel is approachable percutaneously. We will also need to get a CT of the chest for consideration of transcatheter annular measurements. I had a lengthy discussion with his given that the patient currently is somewhat sedated. I will come back and talk with them in more detail and then we will potentially schedule the procedure in the near future. We will communicate further management plan with Dr. Harding in detail in our heart group. MD ARY Wolfe/SB , 03:03 PM , 03:28 PM
[2018-03-04] MEDS: BUDESONIDE-FORMOTEROL 160/4.5 MCG INHALER INH SCH (21:00)
[2018-03-05] VITALS (9 sets, daily range): BP systolic 111–146; BP diastolic 46–76; PULSE 84–96; RESP 18–21; TEMP 97.4–98.7; O2SAT 93–99
[2018-03-05] MEDS: ACETAMINOPHEN 1000 MG/100 ML 100 ML IV SCH (04:00)
[2018-03-05] MEDS: RESP: ALBUTEROL 2.5 MG/IPRATROPIUM 0.5 MG NEB (SCH) NEB ×6 (04:12→21:43)
[2018-03-05 04:43] LABS: HEMATOCRIT 39.8 % (39.0-51.0); HEMOGLOBIN 13.3 GM/DL (13.0-17.0); MEAN CORPUSCULAR HGB CONC 33.3 % (32.0-36.0); MEAN PLATELET VOLUME 9.8 FL (7.0-11.0); PLATELET COUNT 183 TH/MM3 (150-450); RED BLOOD COUNT 4.42 MIL/MM3 (4.50-5.90); RED CELL DISTRIBUTION WIDTH 14.4 % (11.6-17.2); WHITE BLOOD COUNT 20.1 TH/MM3 (4.0-11.0)
[2018-03-05 05:05] LABS: BICARBONATE 22.5 MEQ/L (21.0-32.0); CALCIUM 8.6 MG/DL (8.5-10.1); CREATININE 1.02 MG/DL (0.60-1.30)
--- NOTE | 2018-03-05 05:31 | RADRPT ---
EXAM DATE/TIME: 03/05/2018 04:34 [facility] COMPARISON: CHEST SINGLE AP, March 04, 2018, 10:24. INDICATIONS : Shortness of breath, possible pulmonary disease. MEDICAL HISTORY : None. SURGICAL HISTORY : CABG. ENCOUNTER: Subsequent ACUITY: 2 days PAIN SCORE: Non-responsive. LOCATION: Bilateral chest FINDINGS: A single view of the chest demonstrates CABG. Left subclavian central line in stable position. Bilate ral chest tubes again seen without pneumothorax. Minimal bibasilar densities. Endotracheal tube remov ed. The cardiomediastinal contours are unremarkable. Osseous structures are intact. CONCLUSION: Status post CABG. Minimal bibasilar densities likely atelectasis. No pneumothorax. Marcus Pina MD on March 05, 2018 at 5:28 Board Certified Radiologist. This report was verified electronically.
[2018-03-05] MEDS: PANTOPRAZOLE SOD 40 MG DELAYED RELEASE TAB PO SCH (05:58)
[2018-03-05] MEDS: oxyCODONE/ACETAMINOPHEN 5 MG/325 MG TAB PO PRN ×3 (06:29→23:50)
[2018-03-05] MEDS: DOCUSATE SODIUM 100 MG CAP PO SCH ×3 (08:45→21:18)
[2018-03-05] MEDS ORDERED: BISACODYL 10 MG SUPP RECTAL PRN (08:45)
[2018-03-05] MEDS ORDERED: SOD PHOSPHATE/SOD BIPHOSPHATE (ADULT) ENEMA 133ML RECTAL PRN (08:45)
[2018-03-05] MEDS ORDERED: GLUCAGON 1 MG/ML VIAL OTHER PRN (08:45)
[2018-03-05] MEDS ORDERED: DEXTROSE 50% IN WATER 50 ML VIAL(D50) IV PUSH PRN (08:45)
[2018-03-05] MEDS: LISINOPRIL 20 MG TAB PO SCH (09:00)
[2018-03-05] MEDS: CHOLECALCIFEROL (VIT D3) 1000 UNIT TAB PO SCH (09:00)
[2018-03-05] MEDS: ASPIRIN EC 81 MG TABEC PO SCH (09:00)
[2018-03-05] MEDS: CLOPIDOGREL 75 MG TAB PO SCH (09:01)
[2018-03-05] MEDS: HYDROCHLOROTHIAZIDE 25 MG TAB PO SCH (09:01)
[2018-03-05] MEDS: SODIUM CHLORIDE 0.9% FLUSH 10 ML FLUSH IV FLUSH SCH ×2 (09:01→21:18)
[2018-03-05] MEDS: BUDESONIDE-FORMOTEROL 160/4.5 MCG INHALER INH SCH ×2 (09:02→21:18)
[2018-03-05] MEDS: MAGNESIUM HYDROXIDE SUSP 30 ML CUP PO SCH (09:05)
--- NOTE | 2018-03-05 09:29 | PD.FRAIL ---
Date: Mar 05, 2018 Height: 162.56 cm Weight: 79.5 kg BMI: 30.1 Assessment Performed: Inpatient Days in Hospital at Exam: 1 Albumin 03/05/18 04:00: Albumin 3.0 Pass/Fail: Fail Richter Activities Daily Living Richter ADL Score: Bathing(bathes self/help in single area): [place] (1), Dressing(gets/puts clothes on self): [place] (1), Toileting(goes without help): [place] ( 1), Transferring([facility]assisted or [facility] [place] (1), Continence( complete self-control): [place] (1), Feeding(self, prep by another allowed) : [place] (1), Total: 6 Pass/Fail: Pass Senior Linux Administrator Strength Grasp 1: 28 Grasp 2: 28 Grasp 3: 22 Average: 26 Pass/Fail: Fail (LEFT HAND (MAURA IN RIGHT ARM)) 15-Foot Walk Pass/Fail: Fail (WALK >6 SEC AT THIS TIME DUE TO PAIN SECONDARY TO CHEST TUBES AND NUMEROUS MONITORING AND IV LINES) Total Frailty Total Frailty (out of 4): 3 Frailty Index Score Reference Senior Linux Administrator Strength: BMI: <=24 Cutoff for shake table operator strength(Kg): <=29 BMI: 24.1-28 Cutoff for shake table operator strength(Kg): <=30 BMI: >28 Cutoff for shake table operator strength(Kg): <=32 15-Foot Walk: Height: <=173 cm 15-Foot Walk Cutoff Time: >=7 seconds Height: >173 cm 15-Foot Walk Cutoff Time: >=6 seconds Geraldine Chandra RN Mar 05, 2018 09:29
[2018-03-05] MEDS: MULTIVITAMINS/MINERALS THERAPEUTIC TAB PO SCH (09:35)
[2018-03-05] MEDS: METOPROLOL TARTRATE 25 MG TAB PO SCH ×2 (09:36→21:18)
[2018-03-05] MEDS ORDERED: PANTOPRAZOLE SOD 40 MG DELAYED RELEASE TAB PO SCH (09:45)
[2018-03-05] MEDS: INSULIN ASPART SUPPLEMENTAL SCALE SQ SCH ×4 (10:00→21:22)
[2018-03-05] MEDS ORDERED: IOHEXOL 350 MG/ML 10 ML VIAL (for RAD DIAG) IVCONTRAST ONE (14:08)
--- NOTE | 2018-03-05 15:25 | PD.CAR.PN ---
CVT Progress Note Subjective/Hospital Course: A 77-year-old patient of NOEMI Velázquez and also Dr. Harding, initially seen 02/05/18 , who had been complaining of shortness of breath, fatigue for the past few months, has history of aortic stenosis. He also has a history of coronary artery disease and has had history of prior [place] with stenting x 2 to the RCA back in 2012. He underwent cardiac catheterization 02/05/18 which showed EF of 50%, left main disease of 10%, proximal LAD 30%, the circumflex was 50%, the RCA 30 with a ramus of 70%. He has history of aortic stenosis and his last echo showed some diastolic dysfunction, aortic valve area of 0.78, mild aortic insufficiency, no tricuspid or mitral valve disease. We were consulted for coronary artery bypass graft x 1, aortic valve replacement. Pt was sent home and scheduled for elective surgery PAST MEDICAL HISTORY: Significant for aortic stenosis, coronary artery disease, chronic kidney disease stage III, COPD with emphysema, diabetes mellitus type 2 , hyperlipidemia, hypertension, intermittent claudication, ischemic cardiomyopathy, erectile dysfunction, metabolic syndrome, neoplasm of the prostate, obesity, proteinuria. PAST SURGICAL HISTORY: Include drug-eluting stent x 2 in 2012, radical prostatectomy in 2013. 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 prevena dressing to chest , lizzie wrap left leg HEAD: Normocephalic. EYES: No scleral icterus. No injection or drainage. NECK: Supple, trachea midline. No JVD or lymphadenopathy. CARDIOVASCULAR: Regular rate and rhythm without murmurs, gallops, or rubs. RESPIRATORY: Breath sounds equal bilaterally. No accessory muscle use. GASTROINTESTINAL: Abdomen soft, non-tender, nondistended. MUSCULOSKELETAL: No cyanosis, or edema. BACK: Nontender without obvious deformity. No CVA tenderness. Vital Signs Date Time Temp Pulse Resp B/P (MAP) Pulse Ox O2 Delivery O2 Flow Rate FiO2 03/05/18 11:00 98.1 93 20 120/73 (89) 96 Arterial Line 03/05/18 11:00 96 Nasal Cannula 2.00 03/05/18 11:00 93 03/05/18 09:17 97 Nasal Cannula 3.00 03/05/18 07:00 98 Nasal Cannula 2.00 03/05/18 07:00 97.6 96 20 127/76 (93) 98 142/64 (90) 03/05/18 07:00 96 03/05/18 04:00 99 Nasal Cannula 2.00 03/05/18 04:00 98.0 89 18 119/65 (83) 99 130/53 (78) 03/05/18 04:00 88 03/05/18 00:00 97 Nasal Cannula 2.00 03/05/18 00:00 84 03/05/18 00:00 97.4 85 18 128/67 (87) 97 111/46 (67) 03/04/18 21:30 98 Nasal Cannula 3.00 03/04/18 21:00 99 Nasal Cannula 3.00 03/04/18 20:00 97.6 80 18 142/88 (106) 99 150/71 (97) 03/04/18 20:00 80 03/04/18 20:00 99 Nasal Cannula 4.00 03/04/18 16:00 72 158/78 Labs: Laboratory Tests Test 03/05/18 04:00 White Blood Count 20.1 TH/MM3 (4.0-11.0) Red Blood Count 4.42 MIL/MM3 (4.50-5.90) Hemoglobin 13.3 GM/DL (13.0-17.0) Hematocrit 39.8 % (39.0-51.0) Mean Corpuscular Volume 90.0 FL (80.0-100.0) Mean Corpuscular Hemoglobin 30.0 PG (27.0-34.0) Mean Corpuscular Hemoglobin Concent 33.3 % (32.0-36.0) Red Cell Distribution Width 14.4 % (11.6-17.2) Platelet Count 183 TH/MM3 (150-450) Mean Platelet Volume 9.8 FL (7.0-11.0) Blood Urea Nitrogen 25 MG/DL (7-18) Creatinine 1.02 MG/DL (0.60-1.30) Random Glucose 99 MG/DL (74-106) Calcium Level 8.6 MG/DL (8.5-10.1) Magnesium Level 2.0 MG/DL (1.5-2.5) Sodium Level 141 MEQ/L (136-145) Potassium Level 4.1 MEQ/L (3.5-5.1) Chloride Level 107 MEQ/L (98-107) Carbon Dioxide Level 22.5 MEQ/L (21.0-32.0) Anion Gap 12 MEQ/L (5-15) Estimat Glomerular Filtration Rate 71 ML/MIN (>89) Albumin 3.0 GM/DL (3.4-5.0) Result Diagram: 03/05/1839903/05/18399 Telemetry: NSR (1) COPD (chronic obstructive pulmonary disease) (2) Aortic stenosis Plan: Dr Payan and myself spoke with pt pt agreeable for TAVR workup CT TAVR pending dc chest tube , pain control transfer to stepdown Eval for HHC (3) CAD (coronary artery disease) (4) Diastolic CHF (5) Median sternotomy Cyndie Gordon Mar 05, 2018 15:25
--- NOTE | 2018-03-05 15:28 | HHI.FF ---
Face to Face Verification Diagnosis: (1) Aortic stenosis (2) CAD (coronary artery disease) (3) Diastolic CHF (4) Median sternotomy Home Health Nursing Order: Wound care and dressing changes Nursing assessment with vital signs Instructions: PREVENA Single Use Negative Wound Therapy System Caregiver Instruction Sheet 1. A Prevena dressing system was applied to the chest incision during surgery , to promote wound healing. It works via a suction device (negative pressure wound therapy) to remove low to moderate levels of exudate (drainage) and infectious materials. We recommend that the device stay in place for up to seven days, from day of surgery. 2. Day of Surgery / Day of Removal ____/12/28 3. The dressing should only be removed by a health wound care nurse. Please arrange removal of device to coincide with Home Health visit and or with Nursing staff at Rehab 4. If skin reddening or irritation of skin occurs, or excessive drainage, please notify the Cardiovascular Surgeons office at [phone]. 5. Light showering is permissible; however the pump should be disconnected and placed in safe location, where it will not get wet. The dressing should not be exposed to direct spray or submerged in water. No bath tub / shower only. Ensure the end of the tubing attached to the dressing is facing down so that water does not enter the top of the tube. 6. To remove Prevena dressing: press purple button to turn off device / remove the suction. Then disconnect the tubing from the pump. The fixation strips should be stretched away from the skin and the dressing lifted at one corner and peeled back until it has been fully removed. 7. After removal, it is ok to shower daily using liquid dial soap and clean wash cloth, rinse and pat dry, and leave incision open to air dry. For any concerns regarding Prevena dressing, and or wounds, please contact Tita Tinoco, patient navigator at [phone] or notify the Cardiovascular Surgeons office at [phone]. Incentive spirometry Q1 hr x 10, while awake, also use acapella device hourly whole awake Sternal Breast Bone Precautions: NO pushing or pulling, ( pt must use sternal pillow to support chest with all activities and with coughing ( takes up to 3 months breast bone to heal ) Daily incision care: ok to shower daily, no tub bath. Wash all incisions with liquid dial soap, clean wash cloth to each site, rinse and pat dry. Observe for any signs of infection, such as drainage which is dark yellow, scott, green or foul smelling. Immediately report to the surgeon any drainage from the chest incision, or legs, and for any abnormal drainage from the chest tube sites. Notify surgeon if any temp >101.5 degrees F. When specialty dressing removed/ or if you do not have one, continue to shower daily as above, then rinse and pat incision dry and paint with betadine daily x 5 days. Allow steri strips to fall off if you have any. Avoid lotions, creams, salves, oils, etc. for the first month Please see attached forms for additional instructions regarding post Open Heart specialty wound vacuum dressings. 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 Langley & Dr. Payan), After Hours / Nights (5pm -8am) Weekends and Holidays Please call [facility] ([facility]) Charge Nurse I have seen patient Jeanie Chan on 03/05/18. My clinical findings support the need for the requested home health care services because: Deconditioned w/ increased weakness I certify that my clinical findings support that this patient is homebound because: Post-op weakness Cyndie Gordon Mar 05, 2018 15:28
--- NOTE | 2018-03-05 16:26 | RADRPT ---
EXAM DATE/TIME: 03/05/2018 13:58 [facility] COMPARISON: No previous studies available for comparison. INDICATIONS : Valve replacement IV CONTRAST: 94 cc Omnipaque 350 (iohexol) IV RADIATION DOSE: 11.92 CTDIvol (mGy) MEDICAL HISTORY : Cardiovascular disease. Carcinoma, prostate. Diabetes mellitus type 2.Hypertension SURGICAL HISTORY : Coronary artery stent. Prostatectomy. ENCOUNTER: Initial ACUITY: 1 day PAIN SCALE: 3/10 LOCATION: Trans Aortic valve replacement TECHNIQUE: Volumetric scanning was performed using a multi-row detector CT scanner. The data was post processed with a variety of visualization algorithms including full volume maximum intensity projection, multi -planar sliding thin slab reformation, curved planar reformation, and surface rendering techniques. Using automated exposure control and adjustment of the mA and/or kV according to patient size, radiat ion dose was kept as low as reasonably achievable to obtain optimal diagnostic quality images. DIC OM format image data is available electronically for review and comparison. FINDINGS: CARDIAC: The coronary system is right dominant. Coronary arteries are heavily calcified throughout with probab le multiple areas of stenosis. There is no pericardial effusion AORTIC ROOT/VALVE: 3 cusps are evident with severe calcification. The aortic root measures 3.65. Mid thoracic aorta measures 3.5 with mild calcifications. THORACIC AORTA: Origin of the great vessels is normal. No evidence of aneurysm, mural thrombus, dissection or stenos is. Scattered atherosclerotic calcification. ABDOMINAL AORTA: No aneurysmal disease. Mural thrombus throughout with some narrowing of the mid abdominal aorta to ab out 11 mm. CELIAC ARTERY: Proximal 50% stenosis of the celiac. SMA: Superior mesenteric artery is widely patent. RIGHT RENAL ARTERY: Non-ostial, eccentered greater than 50% stenosis of the right renal.. LEFT RENAL ARTERY: Nonostial, greater than 50% stenosis of the left renal artery. RIGHT COMMON ILIAC: No evidence of aneurysm, mural thrombus, dissection or stenosis. Scattered ossified calcification. T he common femoral measures 9.2 mm. LEFT COMMON ILIAC: No evidence of aneurysm, mural thrombus, dissection or stenosis. The common femoral measures 9.5 mm. THORAX: Atelectasis or scarring in the left lingula and both lung bases. Findings of chronic inflammatory kemi nges with bronchiectasis in both lung bases. Postsurgical changes in the proximal and median sternoto my wires. Surgery appears to be fairly recent with foci of air in the regional soft tissues and in th e anterior thoracic cavity. ABDOMEN: Diverticular disease without diverticulitis. Patient is status post cholecystectomy PELVIS: Patient appears to have undergone prostatectomy. Urinary bladder is distended CONCLUSION: 1. Dense atherosclerotic calcification of the coronary arteries. Dense calcification of the aortic va lve leaflets. 2. Thoracic aortic measurements as above. 3. Atherosclerotic irregularity of the abdominal aorta with mural thrombus. Both common femoral arter ies are patent measuring approximately 9 mm. 4. Nonostial stenosis of both renal arteries, both measuring more than 50%. There is a nonostial sten osis of the proximal celiac which is approximately 50%. 5. Chronic inflammatory changes in both lungs with bronchiectasis in the bases. Scattered areas of ai r space consolidation probably representing atelectasis or scarring. 6. Findings of recent surgery in the thoracic cavity. Gene Pardo MD on March 05, 2018 at 16:01 Board Certified Radiologist. This report was verified electronically.
[2018-03-05] MEDS ORDERED: SENNOSIDES 8.6 MG TAB PO SCH (21:00)
[2018-03-06] VITALS (18 sets, daily range): BP systolic 111–136; BP diastolic 52–63; PULSE 66–93; RESP 18–20; TEMP 98.4–99.6; O2SAT 92
[2018-03-06] MEDS: INSULIN ASPART SUPPLEMENTAL SCALE SQ SCH ×4 (02:00→16:52)
[2018-03-06] MEDS: oxyCODONE/ACETAMINOPHEN 5 MG/325 MG TAB PO PRN ×2 (03:43→06:30)
[2018-03-06] MEDS: RESP: ALBUTEROL 2.5 MG/IPRATROPIUM 0.5 MG NEB (SCH) NEB ×5 (03:48→15:02)
[2018-03-06 05:25] LABS: AUTOMATED NEUTROPHIL # 16.9 TH/MM3 (1.8-7.7); BASOPHIL % 0.1 % (0.0-2.0); EOSINOPHIL % 0.1 % (0.0-4.0); HEMATOCRIT 40.3 % (39.0-51.0); HEMOGLOBIN 13.2 GM/DL (13.0-17.0); LYMPH % 7.1 % (9.0-44.0); LYMPHOCYTE # 1.4 TH/MM3 (1.0-4.8); MEAN CELL VOLUME 90.1 FL (80.0-100.0); MEAN CORPUSCULAR HEMOGLOBIN 29.6 PG (27.0-34.0); MEAN CORPUSCULAR HGB CONC 32.8 % (32.0-36.0); MEAN PLATELET VOLUME 10.1 FL (7.0-11.0); MONO % 7.8 % (0.0-8.0); MONOCYTE # 1.6 TH/MM3 (0-0.9); NEUT % 84.9 % (16.0-70.0); PLATELET COUNT 226 TH/MM3 (150-450); RED BLOOD COUNT 4.47 MIL/MM3 (4.50-5.90); RED CELL DISTRIBUTION WIDTH 14.9 % (11.6-17.2); WHITE BLOOD COUNT 19.9 TH/MM3 (4.0-11.0)
[2018-03-06] MEDS: PANTOPRAZOLE SOD 40 MG DELAYED RELEASE TAB PO SCH (05:30)
--- NOTE | 2018-03-06 05:37 | RADRPT ---
EXAM DATE/TIME: 03/06/2018 05:05 [facility] COMPARISON: CHEST SINGLE AP, March 05, 2018, 4:34. INDICATIONS : Chest tube removal- rule out pneumothorax. MEDICAL HISTORY : Cardiovascular disease. Carcinoma, prostate. Diabetes mellitus type 2. Hypertension. SURGICAL HISTORY : Prostatectomy. Coronary artery stent. ENCOUNTER: Subsequent ACUITY: 1 day PAIN SCORE: Non-responsive. LOCATION: Bilateral chest FINDINGS: Left subclavian catheter projects over the innominate vein, stable in position. Interval removal of left chest tubes. No evidence of pneumothorax. Patchy areas of infiltrate in the left lung base, si milar to prior. No infiltrates in the right lung. The heart is normal size. Prior median sternotom y with intact sternal wire sutures. CONCLUSION: No evidence of pneumothorax status post removal of bilateral chest tubes. Stable patchy bibasilar op acities. Britton York MD on March 06, 2018 at 5:32 Board Certified Radiologist. This report was verified electronically.
[2018-03-06 05:50] LABS: BICARBONATE 28.7 MEQ/L (21.0-32.0); CALCIUM 8.8 MG/DL (8.5-10.1); CREATININE 1.28 MG/DL (0.60-1.30); MAGNESIUM 2.5 MG/DL (1.5-2.5)
[2018-03-06] MEDS ORDERED: POLYETHYLENE GLYCOL 17 GM PKG PO SCH (09:00)
[2018-03-06] MEDS: SODIUM CHLORIDE 0.9% FLUSH 10 ML FLUSH IV FLUSH SCH (09:00)
[2018-03-06] MEDS: BUDESONIDE-FORMOTEROL 160/4.5 MCG INHALER INH SCH (09:00)
[2018-03-06] MEDS: MAGNESIUM HYDROXIDE SUSP 30 ML CUP PO SCH (09:00)
[2018-03-06] MEDS: CLOPIDOGREL 75 MG TAB PO SCH (09:30)
[2018-03-06] MEDS: DOCUSATE SODIUM 100 MG CAP PO SCH (09:30)
[2018-03-06] MEDS: CHOLECALCIFEROL (VIT D3) 1000 UNIT TAB PO SCH (09:31)
[2018-03-06] MEDS: MULTIVITAMINS/MINERALS THERAPEUTIC TAB PO SCH (09:31)
[2018-03-06] MEDS: ASPIRIN EC 81 MG TABEC PO SCH (09:31)
[2018-03-06] MEDS: HYDROCHLOROTHIAZIDE 25 MG TAB PO SCH (09:32)
[2018-03-06] MEDS: LISINOPRIL 20 MG TAB PO SCH (09:32)
[2018-03-06] MEDS: METOPROLOL TARTRATE 25 MG TAB PO SCH (09:32)
[2018-03-06] MEDS ORDERED: POTASSIUM CHLORIDE 20 MEQ CONTROLLED RELEASE TAB PO ONE (10:00)
[2018-03-06] MEDS ORDERED: DOCU1CAP39 PO (13:46)
[2018-03-06] MEDS ORDERED: THERM PO (13:46)
[2018-03-06] MEDS ORDERED: PLAV75TA29 PO (13:46)
[2018-03-06] MEDS ORDERED: METO25TA3 PO (13:46)
[2018-03-06] MEDS ORDERED: OXYC1TAB63 PO (13:46)
--- NOTE | 2018-03-06 13:59 | HHI.DS ---
Discharge Summary Admission Date Mar 04, 2018 at 05:25 Discharge Date: Mar 06, 2018 Admitting Diagnosis CAD, Aortic stenosis (1) Aortic stenosis ICD Codes: I35.0 - Nonrheumatic aortic (valve) stenosis (2) COPD (chronic obstructive pulmonary disease) Diagnosis: Principal ICD Codes: J44.9 - Chronic obstructive pulmonary disease, unspecified (3) CAD (coronary artery disease) ICD Codes: I25.10 - Atherosclerotic heart disease of elim ira coronary artery without angina pectoris (4) Diastolic CHF Diagnosis: Principal ICD Codes: I50.30 - Unspecified diastolic (congestive) heart failure (5) Median sternotomy Diagnosis: Secondary Procedures Postoperative Diagnosis: 03/04 same PORCELAIN AORTA Procedure: Median sternotomy [facility] 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 Hardnig, initially seen 02/05/18 , who had been complaining of shortness of breath, fatigue for the past few months, has history of aortic stenosis. He also has a history of coronary artery disease and has had history of prior [place] with stenting x 2 to the RCA back in 2012. He underwent cardiac catheterization 02/05/18 which showed EF of 50%, left main disease of 10%, proximal LAD 30%, the circumflex was 50%, the RCA 30 with a ramus of 70%. He has history of aortic stenosis and his last echo showed some diastolic dysfunction, aortic valve area of 0.78, mild aortic insufficiency, no tricuspid or mitral valve disease. We were consulted for coronary artery bypass graft x 1, aortic valve replacement. Pt was sent home and scheduled for elective surgery PAST MEDICAL HISTORY: Significant for aortic stenosis, coronary artery disease, chronic kidney disease stage III, COPD with emphysema, diabetes mellitus type 2 , hyperlipidemia, hypertension, intermittent claudication, ischemic cardiomyopathy, erectile dysfunction, metabolic syndrome, neoplasm of the prostate, obesity, proteinuria. PAST SURGICAL HISTORY: Include drug-eluting stent x 2 in 2012, radical prostatectomy in 2013. 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 CBC/BMP: 03/06/18 0351 03/06/18 0351 Significant Findings Laboratory Tests Test 03/05/18 04:00 03/06/18 03:51 White Blood Count 20.1 TH/MM3 (4.0-11.0) 19.9 TH/MM3 (4.0-11.0) Red Blood Count 4.42 MIL/MM3 (4.50-5.90) 4.47 MIL/MM3 (4.50-5.90) Blood Urea Nitrogen 25 MG/DL (7-18) 30 MG/DL (7-18) Estimat Glomerular Filtration Rate 71 ML/MIN (>89) 55 ML/MIN (>89) Albumin 3.0 GM/DL (3.4-5.0) Neutrophils (%) (Auto) 84.9 % (16.0-70.0) Lymphocytes (%) (Auto) 7.1 % (9.0-44.0) Neutrophils # (Auto) 16.9 TH/MM3 (1.8-7.7) Monocytes # (Auto) 1.6 TH/MM3 (0-0.9) Imaging Last Impressions Chest X-Ray 03/06/18 0600 Signed Impressions: Service Date/Time: Tuesday, March 06, 2018 05:05 - CONCLUSION: No evidence of pneumothorax status post removal of bilateral chest tubes. Stable patchy bibasilar opacities. Britton York MD Chest CTA 03/05/18 0000 Signed Impressions: Service Date/Time: February 13:58 - CONCLUSION: 1. Dense atherosclerotic calcification of the coronary arteries. Dense calcification of the aortic valve leaflets. 2. Thoracic aortic measurements as above. 3. Atherosclerotic irregularity of the abdominal aorta with mural thrombus. Both common femoral arteries are patent measuring approximately 9 mm. 4. Nonostial stenosis of both renal arteries, both measuring more than 50%%. There is a nonostial stenosis of the proximal celiac which is approximately 50%%. 5. Chronic inflammatory changes in both lungs with bronchiectasis in the bases. Scattered areas of air space consolidation probably representing atelectasis or scarring. 6. Findings of recent surgery in the thoracic cavity. Gene Pardo MD PE at Discharge GENERAL: A&0 x 3 SKIN: Warm and dry. 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 EYES: No scleral icterus. No injection or drainage. NECK: Supple, trachea midline. No JVD or lymphadenopathy. CARDIOVASCULAR: Regular rate and rhythm without murmurs, gallops, or rubs. RESPIRATORY: Breath sounds equal bilaterally. No accessory muscle use. GASTROINTESTINAL: Abdomen soft, non-tender, nondistended. MUSCULOSKELETAL: No cyanosis, or edema. BACK: Nontender without obvious deformity. No CVA tenderness. 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 03/05 pt now to be evaluated for TAVR procedure/ will consult TAVR team minimal chest tube drainage, removed without difficulty 03/06 doing fair , did not sleep well last pm eager to go home TAVR team has evaluated pt for TAVR procedure next Wed to be discharged on plavix Pt Condition on Discharge: Good Discharge Disposition: Disch w/ Home Health Serv Discharge Instructions DIET: Follow Instructions for: Heart Healthy Diet, Diabetic Diet Activities you can perform: Full Weight Bearing, Shower Only-No Bath Activities to avoid: Prolonged Standing, Driving Additional Activity Instructio: no lifting > 8 lbs or gallon of milk New Medications: Clopidogrel (Plavix) 75 Mg Tab 75 MG PO DAILY for Blood Clot Prevention, #30 TAB 2 Refills Docusate Sodium (Dok) 100 Mg Cap 100 MG PO BID for Constipation, #60 CAP 0 Refills Metoprolol Tartrate (Metoprolol Tartrate) 25 Mg Tab 12.5 MG PO BID for Blood Pressure Management, #60 TAB 2 Refills Multiple Vitamins W/ Minerals (Thera M Plus) 1 Tab 1 TAB PO DAILY for multi vitamin, #30 TAB 2 Refills Oxycodone HCl/Acetaminophen (Oxycodone-Acetaminophen 5-325) 5 Mg-325 Mg Tablet 1 TAB PO Q4H PRN for PAIN SCALE 1 TO 5, #40 TAB 0 Refills Continued Medications: Albuterol 18 GM Inh (Ventolin Hfa 18 GM Inh) 90 Mcg/Act Aer 1 PUFF INH Q4H PRN for SHORTNESS OF BREATH, #1 INHALER [address] (Aspirin DR) 81 Mg Tabdr 81 MG PO DAILY, TAB 0 Refills Budesonide-Formoterol Inh (Symbicort Inh) 160-4.5 Mcg/Act Aero 2 PUFF INH Q12HR, #1 INHALER 0 Refills Cholecalciferol (Vitamin D3) 1,000 Unit Tab 2000 UNITS PO DAILY for Nutritional Supplement, #1 BOTTLE 0 Refills Fish Oil-Cholecalciferol ([place]-3 Fish Oil/Vitamin) 1,000-1,000 Mg Cap 1 CAP PO DAILY for Nutritional Supplement, CAP 0 Refills Lisinopril-Hctz (Lisinopril-Hctz) 20-12.5 Mg Tab 1 TAB PO DAILY for Blood Pressure Management, #30 TAB 0 Refills Ranitidine (Ranitidine) 150 Mg Tab 150 MG PO DAILY for Heartburn Management, #30 TAB 0 Refills Sitagliptin (Januvia) 100 Mg Tab 100 MG PO DAILY for Blood Sugar Management, #30 TAB 0 Refills Cyndie GordonP Mar 06, 2018 13:59
== END 2018-03-06 18:02 | disposition home health service (06) | DRG 982 ==
LOC: HSDI 03-04 05:25 → HCVI 03-04 10:02 → HCPC 03-05 18:10
PROVIDERS: ADMIT Thoracic Surgery (Cardiothoracic Vascular Surgery); ATTEND Thoracic Surgery (Cardiothoracic Vascular Surgery)
PROC: 0P800ZZ Division of Sternum, Open Approach (ICD-10-PCS; principal; 2018-03-04 07:12)
DX: I35.2 Nonrheumatic aortic (valve) stenosis with insufficiency (principal); I13.0 Hypertensive heart and chronic kidney disease with heart failure and stage 1 through stage 4 chronic kidney disease, or unspecified chronic kidney disease; I50.30 Unspecified diastolic (congestive) heart failure; E11.22 Type 2 diabetes mellitus with diabetic chronic kidney disease; J44.9 Chronic obstructive pulmonary disease, unspecified; I25.10 Atherosclerotic heart disease of native coronary artery without angina pectoris; I70.0 Atherosclerosis of aorta; Z53.8 Procedure and treatment not carried out for other reasons; E11.51 Type 2 diabetes mellitus with diabetic peripheral angiopathy without gangrene; N18.3 Chronic kidney disease, stage 3 (moderate); E78.5 Hyperlipidemia, unspecified; I25.5 Ischemic cardiomyopathy; E66.9 Obesity, unspecified; Z68.30 Body mass index [BMI] 30.0-30.9, adult; I25.2 Old myocardial infarction; Z82.3 Family history of stroke; Z87.891 Personal history of nicotine dependence
CPT/HCPCS: 71045; 74174; 76937; 80048; 82040; 82948; 83735; 85025; 85027; 86850; 86900; 86901; 86920; 93318; 94002; 94150; 94640; 94664; 94667; 94668; C9248; J0131; J0360; J0690; J1644; J1815; J1817; J2150; J2250; J2370; J2440; J2930; J3010; J3370; J3475; J7120; P9047; Q9967

== ENCOUNTER 2018-03-11 08:39 | Inpatient (IN) | payer OTHER, MEDICARE ==
[~2018-03-11] VITALS: Ht 162.6 cm; Wt 71.5 kg
[2018-03-11] VITALS (7 sets, daily range): BP systolic 96–152; BP diastolic 35–79; PULSE 58–89; RESP 16–20; TEMP 97.2–98.4; O2SAT 97–99
[~2018-03-11 08:39] MED LIST changes: +DOCU1CAP39 PO; +METO25TA3 PO; +OXYC1TAB63 PO; +PLAV75TA29 PO; +THERM PO
[2018-03-11] MEDS ORDERED: ROSU40 PO ×2 (09:41→13:55)
[2018-03-11 09:42] LABS: AUTOMATED NEUTROPHIL # 6.4 TH/MM3 (1.8-7.7); BASOPHIL # 0.1 TH/MM3 (0-0.2); BASOPHIL % 0.5 % (0.0-2.0); EOSINOPHIL # 0.7 TH/MM3 (0-0.4); EOSINOPHIL % 7.5 % (0.0-4.0); HEMATOCRIT 39.2 % (39.0-51.0); HEMOGLOBIN 13.7 GM/DL (13.0-17.0); LYMPH % 14.3 % (9.0-44.0); LYMPHOCYTE # 1.3 TH/MM3 (1.0-4.8); MEAN CELL VOLUME 89.7 FL (80.0-100.0); MEAN CORPUSCULAR HEMOGLOBIN 31.2 PG (27.0-34.0); MEAN CORPUSCULAR HGB CONC 34.8 % (32.0-36.0); MEAN PLATELET VOLUME 9.2 FL (7.0-11.0); MONO % 9.2 % (0.0-8.0); MONOCYTE # 0.9 TH/MM3 (0-0.9); NEUT % 68.5 % (16.0-70.0); PLATELET COUNT 236 TH/MM3 (150-450); RED BLOOD COUNT 4.38 MIL/MM3 (4.50-5.90); RED CELL DISTRIBUTION WIDTH 14.5 % (11.6-17.2); WHITE BLOOD COUNT 9.3 TH/MM3 (4.0-11.0)
[2018-03-11 09:54] LABS: INTERNATIONAL NORMALIZED RATIO 1.2 RATIO; PROTHROMBIN TIME - PATIENT 11.7 SEC (9.8-11.6)
[2018-03-11 09:59] LABS: BICARBONATE 31.8 MEQ/L (21.0-32.0); CALCIUM 9.9 MG/DL (8.5-10.1); CREATININE 1.17 MG/DL (0.60-1.30)
[2018-03-11] MEDS ORDERED: LACTATED RINGER'S 1000 ML IV PRN (10:00)
[2018-03-11] MEDS ORDERED: POVIDONE IODINE 5% (ANTISEPSIS KIT) 4 APPLICATIONS EACH NARE PRN (10:00)
[2018-03-11] MEDS ORDERED: METOPROLOL TARTRATE 25 MG TAB PO PRN (10:00)
[2018-03-11] MEDS ORDERED: POVIDONE IODINE 5% (ANTISEPSIS KIT) EACH NARE PRN (10:00)
[2018-03-11] MEDS ORDERED: CHLORHEXIDINE GLUCONATE 2 % 1 PACK (2 CLOTHS) TOPICAL PRN ×2 (10:00)
[2018-03-11] MEDS ORDERED: SODIUM CHLOR 0.9% 1000 ML 1,000 ML IV SCH (10:00)
[2018-03-11] MEDS ORDERED: ceFAZolin 2 GM PREMIX 50 ML IV PRN (10:00)
[2018-03-11] MEDS ORDERED: MUPIROCIN 2% OINT 1 APPLIC/GM SYRINGE EACH NARE PRN (10:00)
[2018-03-11] MEDS ORDERED: SODIUM CHLORID 0.9% 500 ML IV PRN (10:00)
[2018-03-11] MEDS ORDERED: MIDAZOLAM HCL 5 MG/ML VIAL (1 ML) ONE (11:21)
[2018-03-11] MEDS ORDERED: fentaNYL CITRATE 250 MCG/5 ML AMP ONE ×2 (11:21→13:52)
--- NOTE | 2018-03-11 11:39 | MH ---
cc: Ty Alberto MD DATE OF ADMISSION: 03/11/2018 INDICATIONS: Severe aortic stenosis. HISTORY OF PRESENT ILLNESS: This is a 77-year-old male patient of Dr. Harding who has a history of prior myocardial infarction and percutaneous intervention. He underwent recent cardiac catheterization which showed moderate branch vessel coronary disease and severe aortic stenosis. 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 He is now sent for consideration for transcatheter aortic valve replacement. PAST MEDICAL HISTORY: Severe aortic valve stenosis, coronary artery disease, chronic kidney disease, COPD, emphysema, diabetes, hyperlipidemia, hypertension, claudication, ischemic cardiomyopathy. ALLERGIES: STATINS. HOME MEDICATIONS: 1. Januvia. 2. Lisinopril. 3. Zantac. 4. Crestor. 5. Symbicort. 6. Ventolin. 7. Vitamin D. 8. Aspirin. FAMILY HISTORY: Denies any family history of early coronary artery disease or sudden cardiac . SOCIAL HISTORY: Smoked 3 packs a day for 40 years, quit 10 years ago. REVIEW OF SYSTEMS: A 12-point review of systems was performed, negative unless otherwise as noted in the history of present illness. PHYSICAL EXAM: VITAL SIGNS: Temperature is 98, pulse 65, blood pressure is 146/79 mmHg. GENERAL: Alert and oriented x 3, in no acute distress. HEENT: Shows pupils reactive to light and accommodation. Extraocular movements are intact. NECK: No elevation of jugular venous distention. No thyromegaly, no lymphadenopathy, no carotid bruits. LUNGS: Clear to auscultation bilaterally. HEART: Regular, 3/6 systolic murmur. ABDOMEN: Nontender, nondistended, good bowel sounds. No hepatosplenomegaly. EXTREMITIES: Show no clubbing, cyanosis or edema. Good peripheral pulses. NEUROLOGIC: Cranial nerves intact. Motor and sensory grossly intact. LABS: WBC 9.3, hemoglobin 13.7, platelet count is 236. INR is 1.2. Sodium 138, potassium 4.5, BUN is 20, creatinine is 1.17. PREOPERATIVE WORKUP: STS score 3.5%. [employer] Heart Association class III. BMI is 28. Frailty score of 3/4. Electrocardiogram: Sinus rhythm. Pulmonary function tests: Severe restriction. FEV1 0.71. Echo from 12/30/2017: Peak jet velocity of 4.16 m/second, mean gradient 43 mmHg. Calculated aortic valve area is 0.76 cm2. Ejection fraction 50%. Mild aortic insufficiency. Cardiac cath 02/05/2015: Revealed circumflex with 50% stenosis, ramus with 70% stenosis. CT scan 03/05/2018: Short annulus diameter 22 mm long, annulus diameter is 29 mm, perimeter is 80.4 mm. Sinus of Valsalva 38. Sinotubular junction 32, coronary height 23 on the left and 19 on the right. Iliac: Minimal luminal diameter on the right 4.9 mm and on the left, 5.0 mm. ASSESSMENT: 1. Severe aortic valve stenosis. 2. Coronary artery disease. 3. Cardiomyopathy and congestive heart failure. PLAN: The risks, benefits and alternatives discussed with the patient. The patient understood and consented to proceed. We will plan for a 29 mm Evolut R Medtronic bioprosthetic transcatheter aortic valve placement from a left femoral approach. Ty Alberto MD ARY/DL , 11:11 AM , 11:39 AM
[2018-03-11] MEDS ORDERED: PROTAMINE SULFATE 50 MG/5 ML VIAL ONE (11:42)
[2018-03-11] MEDS ORDERED: HEPARIN SODIUM - IV 10,000 UNITS/10 ML VIAL ONE (11:42)
[2018-03-11] MEDS ORDERED: LIDOCAINE HCL 1% PF 30 ML VIAL ONE (11:42)
[2018-03-11] MEDS ORDERED: POTASSIUM CHLOR ONE (11:44)
--- NOTE | 2018-03-11 11:55 | EKG ---
Date Performed: 03/11/2018 Time Performed: 09:41:30 PTAGE: 77 years EKG: Sinus rhythm . Inferior infarct - age undetermined Abnormal ECG PREVIOUS TRACING : 02/05/2018 09.00 Since the previous tracing, no significant change noted DOCTOR: Kai Palacio Interpretating Date/Time 03/11/2018 11:53:55
[2018-03-11] MEDS ORDERED: GLYCOPYRROLATE 1 MG/5 ML SYRINGE IV PUSH ONE (12:00)
[2018-03-11] MEDS ORDERED: LIDOCAINE HCL 1% PF 5 ML SYRINGE OTHER ONE (12:00)
[2018-03-11] MEDS ORDERED: PHENYLEPHRINE HCL 10 MG/ML VIAL IV ONE (12:00)
[2018-03-11] MEDS ORDERED: ROCURONIUM INJ 50 MG/5 ML SYRINGE IV PUSH ONE (12:00)
[2018-03-11] MEDS ORDERED: NEOSTIGMINE 5 MG/5 ML SYRINGE IV PUSH ONE (12:00)
[2018-03-11] MEDS ORDERED: DEXAMETHASONE SOD PHOS 4 MG/ML VIAL IV ONE (12:00)
[2018-03-11] MEDS ORDERED: ONDANSETRON HCL 4 MG/2 ML VIAL IV ONE (12:00)
[2018-03-11] MEDS ORDERED: PHENYLEPH/NS 1000 MCG/10 ML SYR IV ONE (12:00)
[2018-03-11] MEDS ORDERED: ePHEDrine/NS 25 MG/5 ML SYRINGE IV ONE (12:00)
--- NOTE | 2018-03-11 13:46 | PD.PROCEDR ---
Procedure Note Procedure Procedure: Transesophageal Echocardiography Diagnosis: Severe aortic stenosis Indications: Perioperative planning for transcatheter aortic valve replacement Consent: Obtained Anesthesia: General endotracheal anesthesia Description of the Procedure: The patient was sedated and mechanically ventilated. The echo probe was inserted easily and without resistance. At the conclusion of the procedure, the echo probe was removed. Please see detailed echocardiogram report for formal findings. Preliminary Findings (not confirmed): Pre-procedure: 1) grossly normal biventricular function 2) severe aortic stenosis 3) mild aortic insufficiency 4) no mitral regurgitation 5) no evidence of intra-atrial shunting by color flow Doppler 6) evidence of left atrial hypertension by pulmonary vein inflow 7) no pericardial effusion Post-procedure: 1) s/p successful placement transcatheter aortic valve 2) no evidence of bioprosthetic valve stenosis 3) there is evidence of perivalvular leak: please see formal dictated echo report for severity. 4) no pericardial effusion 5) significant atherosclerotic plaque in the descending aorta, including some mobile segments. see formal dictated echo report for severity and grading. The patient tolerated the procedure well with no hemodynamic instability. There were no immediate complications noted. There was minimal EBL. I personally performed the procedure. Fidel Chacko MD March 11, 2018 13:46
[2018-03-11] MEDS ORDERED: IOHEXOL 350 MG/ML 100 ML BTL (for RAD DIAG) IVCONTRAST ONE (13:53)
--- NOTE | 2018-03-11 13:57 | PD.CONS ---
[facility] Service Critical Care Medicine Consult Requested By Dr. Alberto Reason for Consult perioperative management of medical comorbidities Primary Care Physician Kalin Palma MD History of Present Illness This is a 77-year-old male with a history of severe aortic stenosis as well as coronary artery disease who was initially admitted for attempted AVR cab on 03/04. 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 He represents for elective transcatheter aortic valve replacement. He underwent uncomplicated procedure via groin access. He presents to the CVICU in stable condition arousing from anesthesia. Due to his somnolence, review of systems is limited no additional information is available from the patient. The remainder of the history is obtained from the medical record. Review of Systems ROS Limitations: Clinical Condition, Altered Mental Status Eyes: DENIES: Eye pain Ears, nose, mouth, throat: DENIES: Throat pain Respiratory: DENIES: Shortness of breath Cardiovascular: DENIES: Chest pain Gastrointestinal: DENIES: Nausea, Vomiting Neurologic: DENIES: Headache ROS Arousing from anesthesia. Past Family Social History Allergies: Coded Allergies: Kcbzkna-Zfo-Uxq Reductase Inhibitor (Verified Adverse Reaction, Unknown, MUSCLE ACHES, 03/11/18) Past Medical History Severe aortic stenosis Coronary artery disease Chronic kidney disease stage III COPD Diabetes mellitus type 2 Hyperlipidemia Hypertension Erectile dysfunction Reported history of ischemic cardiomyopathy Past Surgical History Drug-eluting stent 2 in 2012 Radical prostatectomy in 2013 Sternotomy without CABG or valve replacement 02/2018 Reported Medications Thera M Plus (Multivitamins/Minerals Therapeutic) 1 Tab 1 Tab PO DAILY Dok (Docusate Sodium) 100 Mg Cap 100 Mg PO BID Oxycodone-Acetaminophen 5-325 (Oxycodone HCl/Acetaminophen) 5 Mg-325 Mg Tablet 1 Tab PO Q4H PRN Metoprolol Tartrate 25 Mg Tab 12.5 Mg PO BID Plavix (Clopidogrel Bisulfate) 75 Mg Tab 75 Mg PO DAILY Crestor (Rosuvastatin Calcium) 40 Mg Tab Unknown Dose PO DAILY Lodge-3 Fish Oil/Vitamin (Fish Oil-Cholecalciferol) 1,000-1,000 Mg Cap 1 Cap PO DAILY Vitamin D3 (Cholecalciferol) 1,000 Unit Tab 2,000 Units PO DAILY Ventolin Hfa 18 GM Inh (Albuterol Sulfate) 90 Mcg/Act Aer 1 Puff INH Q4H PRN Symbicort Inh (Budesonide/Formoterol Fumarate) 160-4.5 Mcg/Act Aero 2 Puff INH Q12HR Ranitidine (Ranitidine HCl) 150 Mg Tab 150 Mg PO DAILY Lisinopril-Hctz 20-12.5 Mg Tab 1 Tab PO DAILY Januvia (Sitagliptin Phosphate) 100 Mg Tab 100 Mg PO DAILY Aspirin DR (Aspirin) 81 Mg Tabdr 81 Mg PO DAILY Active Ordered Medications See MAR Family History Father: CVA Social History Prior smoker. Rare EtOH. Physical Exam Vital Signs Vital Signs Date Time Temp Pulse Resp B/P (MAP) Pulse Ox O2 Delivery O2 Flow Rate FiO2 03/11/18 09:42 98.4 65 16 146/79 (101) 97 Physical Exam GENERAL: Elderly male, lying in bed, arousing from anesthesia HEENT: Normocephalic. Atraumatic. Pupils equal, round, reactive, conjugate. Mucous membranes are moist NECK: Trachea is midline. There is no JVD. Right IJ introducer sheath with transvenous pacer in place, site is clean dry and intact. CHEST: Equal chest rise. Nasal cannula oxygen. CARDIOVASCULAR: Normal rate, regular rhythm. Sinus by telemetry. Transvenous pacer is set VVI at a backup rate of 50, not currently paced ABDOMEN: Soft, nontender, nondistended. No guarding. MUSCULOSKELETAL: Pulses 2+. No peripheral edema. Bilateral groin sites with dressings intact, clean, dry, no evidence of hematoma. NEUROLOGICAL: RASS -2. Arousing from anesthesia. Moves all extremities. No focal deficits. Laboratory Laboratory Tests Test 03/11/18 09:27 White Blood Count 9.3 Red Blood Count 4.38 Hemoglobin 13.7 Hematocrit 39.2 Mean Corpuscular Volume 89.7 Mean Corpuscular Hemoglobin 31.2 Mean Corpuscular Hemoglobin Concent 34.8 Red Cell Distribution Width 14.5 Platelet Count 236 Mean Platelet Volume 9.2 Neutrophils (%) (Auto) 68.5 Lymphocytes (%) (Auto) 14.3 Monocytes (%) (Auto) 9.2 Eosinophils (%) (Auto) 7.5 Basophils (%) (Auto) 0.5 Neutrophils # (Auto) 6.4 Lymphocytes # (Auto) 1.3 Monocytes # (Auto) 0.9 Eosinophils # (Auto) 0.7 Basophils # (Auto) 0.1 CBC Comment DIFF FINAL Differential Comment Prothrombin Time 11.7 Prothromb Time International Ratio 1.2 Activated Partial Thromboplast Time 28.1 Blood Urea Nitrogen 20 Creatinine 1.17 Random Glucose 176 Calcium Level 9.9 Sodium Level 138 Potassium Level 4.5 Chloride Level 101 Carbon Dioxide Level 31.8 Anion Gap 5 Estimat Glomerular Filtration Rate 61 Result Diagram: 03/11/1892603/11/18926 Assessment and Plan Assessment and Plan Assessment: 77-year-old male postop day 0 status post transcatheter aortic valve replacement. Admit ICU. Frequent neurovascular checks and close monitoring. Status post transcatheter aortic valve replacement 03/11 with common iliac access Maintenance IV fluids Close neurovascular checks Close urine output monitoring Anticoagulation per Dr. alberto COPD Nebs Aggressive pulmonary toilet Wean FiO2 for goal SPO2 greater than 90% Out of bed after flat time Hypertension Goal systolic blood pressure less than 180 Add back home antihypertensives as needed Hyperlipidemia Restart home statin Diabetes Sliding-scale insulin Coronary artery disease Restart aspirin GERD restart home h2 carson advance diet as tolerated SCDs Critical care medicine will continue to follow while patient is in the CVICU. Fidel Chacko MD March 11, 2018 13:57
[2018-03-11] MEDS ORDERED: SODIUM PHOSPHATE INJ 30 MMOL in SODIUM CHLOR 0.9% 250 ML INJ 240 ML IV PRN (14:00)
[2018-03-11] MEDS ORDERED: POTASSIUM CHLOR 20 MEQ PREMIX 100 ML IV PRN ×2 (14:00)
[2018-03-11] MEDS ORDERED: POTASSIUM CHLOR 40 MEQ PREMIX 100 ML IV PRN ×2 (14:00)
[2018-03-11] MEDS ORDERED: MAGNESIUM SULFATE INJ 4 GM in SODIUM CHLORIDE 0.9% INJ 92 ML IV PRN (14:00)
[2018-03-11] MEDS ORDERED: POTASSIUM PHOSPHATE MONOBASIC 500 MG TAB PO PRN (14:00)
[2018-03-11] MEDS ORDERED: POTASSIUM PHOSPHATE MONOBASIC 500 MG TAB PO/TUBE PRN (14:00)
[2018-03-11] MEDS ORDERED: DEXTROSE 50% IN WATER 50 ML VIAL(D50) IV PUSH PRN ×2 (14:00→14:30)
[2018-03-11] MEDS ORDERED: POTASSIUM PHOSPHATE INJ 30 MMOL in SODIUM CHLOR 0.9% 250 ML INJ 250 ML IV PRN (14:00)
[2018-03-11] MEDS ORDERED: MAGNESIUM SULFATE INJ 2 GM in SODIUM CHLORIDE 0.9% INJ 96 ML IV PRN (14:00)
[2018-03-11] MEDS ORDERED: MAGNESIUM OXIDE 400 MG TAB PO PRN (14:00)
[2018-03-11] MEDS ORDERED: POTASSIUM CHLORIDE 25 MEQ EFFERVESCENT TAB PO PRN (14:00)
--- NOTE | 2018-03-11 14:09 | PD.OP ---
cc: Jennifer Harding MD; Lisa Payan MD; Ty Alberto MD Operative Report Date of Surgery: March 11, 2018 Preoperative Diagnosis: (1) Aortic stenosis (2) Diastolic CHF Postoperative Diagnosis: same Procedure: Transcatheter aortic valve replacement with a 29 Evolut Pro tissue valve Balloon aortic valvuloplasty with a 23 True Flow balloon Bilateral percutaneous femoral artery access with Perclose closure on the left Left femoral venous access Aortography Fluoroscopy Anesthesia: Dr. Veloz Surgeon: Lisa Payan Co-surgeon - Dr. Alberto Public Defender(s): none Operation and Findings: The risks, benefits, complications, treatment options, and expected outcomes were discussed with the patient. The possibilities of reaction to medication, pulmonary aspiration, perforation of viscus, bleeding, recurrent infection, the need for additional procedures, failure to diagnose a condition, and creating a complication requiring transfusion or operation were discussed with the patient. The patient concurred with the proposed plan, giving informed consent. The site of surgery properly noted/marked. The patient was taken to hybrid operating room, identified as Jeanie Chan and the procedure verified as Transcatheter Aortic Valve Replacement. A Time Out was held and the above information confirmed. Standard monitoring lines and Alvarez catheter were placed. General anesthesia was induced. The patient was prepped and draped in a sterile fashion. Initially, right femoral arterial and venous access was acquired using a Seldinger percutaneous technique. The details of this procedure were dictated under separate note by cardiology. Once a pigtail was positioned in the aortic annulus and a temporary transvenous pacemaker wire was placed in the right ventricular apex and tested, the left femoral artery was accessed using a needle followed by a guidewire under fluoroscopic guidance. The patient was heparinized and 2 Perclose devices deployed for later closure. Serial dilators were used to dilate the femoral artery to 16 Lao caliber. The Cook sheath was then inserted up to the distal abdominal aorta. Arch aortography was performed to define the implant view. A balloon aortic valvuloplasty was then performed using a 23 x 6 True Flow balloon with the patient being paced at 180 beats per minute. The sheath was exchanged for the valve delivery system. A 29 Evolut Pro transcatheter aortic valve was then positioned in the annulus and deployed with the patient being paced at 120 beats per minute. Following deployment, the valve apparatus was withdrawn and arch aortography and DELMI were performed to assess the valve. The valve had a small perivalvular leaks. Gradients were then measured and the sheath was removed. Perclose sutures were secured and protamine administered. An additional angioseal was required for hemostasis. Sterile dressings were placed. At the end of the operation, all sponge, instruments, and needle counts were correct. The patient was transferred to the CVICU in stable condition. Findings: Heavily calcified aortic valve. Implants: 29 Evolut Pro tissue valve Complications: none Disposition: to CVICU in stable condition Lisa Payan MD March 11, 2018 14:09
[2018-03-11] MEDS ORDERED: SODIUM CHLOR 0.9% 1000 ML INJ 1,000 ML IV SCH (14:23)
[2018-03-11] MEDS ORDERED: GLUCAGON 1 MG/ML VIAL OTHER PRN (14:30)
[2018-03-11] MEDS ORDERED: MISC INFORMATION OTHER ONE (14:30)
--- NOTE | 2018-03-11 15:03 | RADRPT ---
EXAM DATE/TIME: 03/11/2018 14:39 [facility] COMPARISON: CHEST SINGLE AP, March 06, 2018, 5:05. INDICATIONS : Post op TAVR. Stroke alert. MEDICAL HISTORY : Cardiovascular disease. Carcinoma, prostate. Diabetes mellitus type 2. Hypertension. SURGICAL HISTORY : Coronary artery stent. Prostatectomy. ENCOUNTER: Subsequent ACUITY: 1 day PAIN SCORE: Non-responsive. LOCATION: Bilateral chest FINDINGS: There is a left subclavian with tip in the SVC. Opacities in the left lung base. Linear lucency in th e midclavicular mid to upper right hemithorax. Cardiomediastinal contours are within normal limits. B sloane thorax is intact. CONCLUSION: 1. Left lung base atelectasis. 2. Linear lucency in the midclavicular mid to superior right hemithorax. Suspect this reflects a skin fold or is external to the patient. Repeat radiograph in slight obliquity may be performed if there i s sufficient clinical concern. Dwight Camarena MD on March 11, 2018 at 14:59 Board Certified Radiologist. This report was verified electronically.
--- NOTE | 2018-03-11 15:08 | MP ---
cc: Ty Alberto MD DATE OF OPERATION: PROCEDURE: Transcatheter aortic valve replacement. PROCEDURES PERFORMED: 1. Fluoroscopy with interpretation. 2. Ascending aortography. 3. Transcatheter aortic valve replacement. 4. Aortic valvuloplasty. METHOD: The risks, benefits and alternatives were discussed with the patient. The patient understood and consented to the procedure. The patient was brought to the catheterization lab, placed on the catheterization table. Bilateral groins were prepped and draped. The right groin was anesthetized with 2% lidocaine a 5-Mongolian, 11 cm sheath was placed in the artery and the vein. The left groin was anesthetized and, under fluoroscopic angiographic guidance, a micropuncture was obtained for access. An 8-Mongolian sheath followed by 2 Perclose devices were then deployed and followed by a 16-Mongolian Cook sheath. ASCENDING AORTOGRAPHY: A pigtail catheter was advanced to the ascending aorta. Ascending aortography was performed, which showed good visualization of all 3 cusps in parallel. The aorta did not appear dilated. There was mild aortic atherosclerosis. AORTIC VALVULOPLASTY: A 6-Mongolian AL1 catheter was advanced to the ascending aorta. A straight tipped Amplatz Super Stiff wire was then attempted to cross the valve but with time and difficulty unable to do so. A Terumo Glidewire was then advanced across the valve and into the left ventricle. A J-wire was advanced, followed by a pigtail catheter, followed by a Medtronic wire into the left ventricular apex and a 22 mm aortic valvuloplasty balloon was advanced up and over the arch. With rapid pacing, the balloon was deployed and repeat transthoracic echocardiogram showed mild aortic insufficiency by no pericardial effusion. TRANSCATHETER AORTIC VALVE REPLACEMENT: A 16-Mongolian Medtronic transcatheter valve was then advanced through the left common femoral sheath to the ascending aorta. Bilateral carotid arteries were manually occluded as we carefully crossed the aortic arch given his known porcelain aorta. We were able to then cross valve. The valve was then slowly deployed with visualization, both with contrast and fluoroscopy, followed by transthoracic echocardiography. After full device deployment showed only a mild paravalvular leak, and no residual stenosis. At this point, we elected not to proceed with any further intervention for concern of aortic rupture with further post-dilation. Additionally, we felt the self expanding nature of the medtronic valve would further decrease the paravalvular leak over time. CONCLUSIONS: 1. Successful transcatheter aortic valve replacement with a 29 mm Evolut R device. 2. Successful aortic valvuloplasty. PLAN: We will monitor the patient closely for any post-procedural complications. Hopefully this will translate well to symptomatic improvement. Hospital technical administrative assistant will help to monitor patient post procedurally. The patient follows with Dr. Harding in the outpatient setting. MD ARY Wolfe/SB , 02:34 PM , 03:06 PM MTDAnnemarie
[2018-03-11 15:09] LABS: AUTOMATED NEUTROPHIL # 8.8 TH/MM3 (1.8-7.7); BASOPHIL % 0.4 % (0.0-2.0); EOSINOPHIL # 0.5 TH/MM3 (0-0.4); EOSINOPHIL % 4.5 % (0.0-4.0); HEMATOCRIT 32.2 % (39.0-51.0); HEMOGLOBIN 10.5 GM/DL (13.0-17.0); LYMPH % 15.7 % (9.0-44.0); LYMPHOCYTE # 1.9 TH/MM3 (1.0-4.8); MEAN CELL VOLUME 90.2 FL (80.0-100.0); MEAN CORPUSCULAR HEMOGLOBIN 29.4 PG (27.0-34.0); MEAN CORPUSCULAR HGB CONC 32.6 % (32.0-36.0); MEAN PLATELET VOLUME 9.3 FL (7.0-11.0); MONO % 6.5 % (0.0-8.0); MONOCYTE # 0.8 TH/MM3 (0-0.9); NEUT % 72.9 % (16.0-70.0); PLATELET COUNT 237 TH/MM3 (150-450); RED BLOOD COUNT 3.57 MIL/MM3 (4.50-5.90); RED CELL DISTRIBUTION WIDTH 14.1 % (11.6-17.2)
--- NOTE | 2018-03-11 15:11 | RADRPT ---
EXAM DATE/TIME: 03/11/2018 14:53 [facility] COMPARISON: No previous studies available for comparison. INDICATIONS : Stroke alert RADIATION DOSE: 56.35 CTDIvol (mGy) This report was called by Dr. Del Valle to Dr. Maynard at 3: 06 PM MEDICAL HISTORY : Hypertension. Chronic obstructive pulmonary disease. Diabetes mellitus type 1. SURGICAL HISTORY : None. ENCOUNTER: Initial ACUITY: 1 day PAIN SCALE: Non-responsive LOCATION: cranial TECHNIQUE: Multiple contiguous axial images were obtained of the head. Using automated exposure control and adj ustment of the mA and/or kV according to patient size, radiation dose was kept as low as reasonably a chievable to obtain optimal diagnostic quality images. DICOM format image data is available electro nically for review and comparison. FINDINGS: CEREBRUM: The ventricles are normal for age. No evidence of midline shift, mass lesion, hemorrhage or acute in farction. No extra-axial fluid collections are seen. There is a small old lacunar infarct in the rig ht basal ganglia. POSTERIOR FOSSA: The cerebellum and brainstem are intact. The 4th ventricle is midline. The cerebellopontine angle i s unremarkable. EXTRACRANIAL: The visualized portion of the orbits is intact. SKULL: The calvaria is intact. No evidence of skull fracture. CONCLUSION: 1. No acute intracranial hemorrhage. 2. Small old right lacunar infarcts in the basal ganglia. Renny Norris MD on March 11, 2018 at 15:05 Board Certified Radiologist. This report was verified electronically.
[2018-03-11] MEDS ORDERED: IODIXANOL 320 MG/ML 10 ML VIAL (for Rad CT) IVCONTRAST ONE (15:20)
[2018-03-11 15:24] LABS: INTERNATIONAL NORMALIZED RATIO 1.3 RATIO; PROTHROMBIN TIME - PATIENT 12.7 SEC (9.8-11.6)
--- NOTE | 2018-03-11 15:24 | RADRPT ---
EXAM DATE/TIME: 03/11/2018 14:53 [facility] COMPARISON: No previous studies available for comparison. INDICATIONS : Stroke alert, right sided weakness and aphasia after TAVR IV CONTRAST: 50 cc Visipaque (iodixanol) IV ; Cumulative dose for multiple exams. RADIATION DOSE: 9.68 CTDIvol (mGy) ; Combined studies MEDICAL HISTORY : Cardiovascular disease. Hypertension. Diabetes mellitus type 1. SURGICAL HISTORY : None. ENCOUNTER: Initial ACUITY: 1 day PAIN SCALE: Non-responsive LOCATION: cranial TECHNIQUE: Volumetric scanning was performed using a multi-row detector CT scanner. The data was post processed with a variety of visualization algorithms including full volume maximum intensity projection, multi -planar sliding thin slab reformation, curved planar reformation, and surface rendering techniques. Using automated exposure control and adjustment of the mA and/or kV according to patient size, radiat ion dose was kept as low as reasonably achievable to obtain optimal diagnostic quality images. DICO M format image data is available electronically for review and comparison. FINDINGS: There is excellent visualization of the major intracranial arteries out to the second-order branch ve ssels. There is no evidence for aneurysm, vessel truncation or stenosis, and no evidence for vascula r malformation. CONCLUSION: Unremarkable CTA of the brain. Renny Norris MD on March 11, 2018 at 15:20 Board Certified Radiologist. This report was verified electronically.
[2018-03-11] MEDS ORDERED: TERBUTALINE INJ 1 MG/ML AMP SQ PRN (15:30)
[2018-03-11 15:35] LABS: CALCIUM 8.2 MG/DL (8.5-10.1); CREATININE 1.09 MG/DL (0.60-1.30)
--- NOTE | 2018-03-11 15:36 | RADRPT ---
EXAM DATE/TIME: 03/11/2018 14:53 [facility] COMPARISON: CTA TRANS AORTIC VALVE REPLACEMENT, March 05, 2018, 13:58. INDICATIONS : Stroke alert, right sided weakness and aphasia IV CONTRAST: 50 cc Visipaque (iodixanol) IV ; Cumulative dose for multiple exams. RADIATION DOSE: 9.68 CTDIvol (mGy) ; Combined studies MEDICAL HISTORY : Hypertension. Cardiovascular disease Diabetes mellitus type 1. SURGICAL HISTORY : None. ENCOUNTER: Initial ACUITY: 1 day PAIN SCALE: Non-responsive LOCATION: neck Elevated flow velocities and ICA/CCA ratios have been found to correlate with increased degrees of vessel stenosis, calculated as percentage of diameter relative to a normal segment of distal ICA/CCA. TECHNIQUE: Volumetric scanning was performed using a multirow detector CT scanner. The data was post processed with a variety of visualization algorithms including full-volume maximum intensity projection, multip lanar sliding thin-slab reformation, curved-planar reformation, and surface-rendering techniques. Us ing automated exposure control and adjustment of the mA and/or kV according to patient size, radiatio n dose was kept as low as reasonably achievable to obtain optimal diagnostic quality images. DICOM f ormat image data is available electronically for review and comparison. FINDINGS: AORTIC ARCH: There is atherosclerotic plaquing of the aortic arch. There is no significant stenosis at the origin of the great vessels. RIGHT CAROTID: The common carotid is widely patent. There is moderate calcified atherosclerotic plaque present at th e bifurcation. This results in a mild degree of stenosis in the origin of the right internal carotid this is estimated to be in the range of 20% by NASCET criteria. There is soft plaque present as well. The more cephalad portion of carotid is widely patent. LEFT CAROTID: The common carotid is widely patent. There is densely calcified atherosclerotic plaque at the bifurca tion. There is a small amount of soft plaque present as well. This results in minimal stenosis of the origin of the left internal carotid. The more cephalad portion of the internal carotid is widely pat ent. VERTEBRALS: The left vertebral is a sizable vessel and is the dominant blood supply to the basilar. The right deb tebral is diminutive in size. CONCLUSION: 1. Atherosclerotic plaquing at the bifurcations with hard and soft plaque present. No hemodynamically significant lesion identified. 2. CTA of the brain is pending. This examination was reviewed with Dr. Green at approximately 1500 hr sRachel Li MD on March 11, 2018 at 15:31 Board Certified Radiologist. This report was verified electronically.
[2018-03-11 15:37] LABS: TROPONIN I 0.85 NG/ML (0.02-0.05)
[2018-03-11] MEDS ORDERED: IOHEXOL 350 MG/ML 50 ML BTL (for Cath Lab) OTHER ONE (15:51)
[2018-03-11] MEDS ORDERED: IOHEXOL 350 MG/ML 100 ML BTL (for Cath Lab) OTHER ONE (15:51)
[2018-03-11] MEDS: ACETAMINOPHEN 1000 MG/100 ML 100 ML IV PRN ×2 (16:27→23:40)
--- NOTE | 2018-03-11 16:50 | MB ---
cc: Janice Rodríguez MD DATE: 03/11/2018 REASON FOR CONSULTATION: Stroke, right hemiparesis, status post TAVR. HISTORY OF PRESENT ILLNESS: The patient is a 77-year-old man who has a history of severe aortic stenosis with coronary artery disease, admitted for AVR CABG on 03/04/2018. He had a porcelain aorta per notes, received elective transcatheter aortic valve replacement, underwent uncomplicated procedure. He had apparently a successful transcatheter aortic valve replacement and valvuloplasty; however, he started to develop upon awakening inability to speak and right-sided weakness and a stat CT was done that did not show anything acute and CTA of the carotids and [place] of [place] did not show any major vessel occlusions. He is improving in the right-sided weakness, still expressively aphasic with a right facial droop, but following commands. PHYSICAL EXAMINATION:. VITAL SIGNS: Temperature is 97.2, heart rate 89, respiratory rate 20, blood pressure 96/46 right arm. NEUROLOGIC: He is awake and alert. He follows simple commands. He moans. He is unable to state his name. His pupils are reactive. Visual chapman difficult to assess at bedside at this time. He has a right facial droop without involvement of the forehead. His tongue is midline but very dry. Motor salas, he is antigravity in the right arm and right leg. This seems to have improved, but he still has a mild drift. Left arm and leg intact. DTRs are 1+. Sensory is questionable in the right face. He nods yes and no, but not consistent. LABORATORY STUDIES: Reviewed. IMPRESSION: Stroke with right hemiparesis that is improving, status post transcatheter aortic valve replacement. PLAN: Recommend continuing him on baby aspirin and Plavix. He will need a swallow evaluation, as well as ongoing PT and OT. That can be done tomorrow. In the event he cannot swallow, he will need a NG/or Dobhoff tube placed to continue his Plavix. Aspirin can be given rectally if needed. MRI will not be done. Even though the device is compatible, there may be some slight risk and we do not want to take that risk. Certainly if his symptoms are still the same tomorrow, recommend a repeat CAT scan of the brain. Otherwise, continue current care and recommendations. Of note, he is not a TPA candidate due to recent TAVR. MD BRUCE Bruno , 04:34 PM , 04:49 PM
[2018-03-11] MEDS: PHENYLEPHRINE INJ 40 MG in DEXTROSE 5% IN WATE 500 ML INJ 496 ML IV PRN ×2 (17:35)
[2018-03-11] MEDS: INSULIN NovoLIN REGULAR SUPPLEMENTAL SCALE SQ SCH ×2 (17:35→22:00)
[2018-03-11] MEDS: SODIUM CHLOR 0.9% 1000 ML INJ 1,000 ML IV SCH (19:00)
--- NOTE | 2018-03-11 20:05 | MB ---
cc: Jalen Yanez MD DATE: 03/11/2018 REASON FOR CONSULTATION: Status post TAVR to evaluate for possible conduction disease. HISTORY OF PRESENT ILLNESS: Mr. Chan is a 77-year-old gentleman with history of coronary artery disease, severe aortic stenosis, high blood pressure, hyperlipidemia, diabetes mellitus, COPD, status post TAVR. I was consulted for evaluation for possible conduction disease. The chart was reviewed. The patient was evaluated. ALLERGIES: STATINS. SOCIAL HISTORY: Negative for smoking. The patient quit 10 years ago. FAMILY HISTORY: Noncontributory to current medical condition. MEDICATIONS: The patient is currently on aspirin, metoprolol 12.5 mg a day, atorvastatin 80 mg a day, Plavix 75, lisinopril 25 mg a day, hydrochlorothiazide. REVIEW OF SYSTEMS: Cannot be performed. The patient just had a stroke alert. Poor verbal communication. PHYSICAL EXAMINATION: GENERAL: Alert. . VITAL SIGNS: Blood pressure 120/57, pulse 79, respiratory rate 20. LUNGS: Ventilated. CARDIOVASCULAR: S1, S2. Regular. No gallop. No murmur. NECK: Right jugular area with central line. ABDOMEN: Soft. No mass, . EXTREMITIES: No edema. DIAGNOSTIC DATA: Electrocardiogram shows sinus rhythm, some minimal ST and T-wave changes. LABORATORY DATA: Hemoglobin 10.5, white blood cell 12. Potassium 4.6, creatinine 1.09. ASSESSMENT AND RECOMMENDATIONS: Mr. Chan currently is stable. He is in sinus rhythm. No change compared with echocardiogram prior to transcatheter aortic valve replacement. My recommendation at this point is continue current management. I will follow this gentleman on a p.r.n. basis. Can be discharged home whenever it is okay with the managing team. Jalen Yanez MD HS/SB , 07:38 PM , 08:04 PM
[2018-03-11] MEDS: FAMOTIDINE 20 MG TAB PO SCH (21:00)
[2018-03-11] MEDS: DOCUSATE SODIUM 100 MG CAP PO SCH (21:00)
[2018-03-11] MEDS: BUDESONIDE-FORMOTEROL 160/4.5 MCG INHALER INH SCH (21:00)
[2018-03-12] VITALS (9 sets, daily range): BP systolic 120–168; BP diastolic 48–77; PULSE 60–87; RESP 14–20; TEMP 98.3–98.9; O2SAT 85–99
[2018-03-12] MEDS: RESP: ALBUTEROL 2.5 MG/IPRATROPIUM 0.5 MG NEB (SCH) INH ×5 (00:45→20:32)
[2018-03-12] MEDS: INSULIN NovoLIN REGULAR SUPPLEMENTAL SCALE SQ SCH ×5 (03:00→21:00)
[2018-03-12 05:12] LABS: HEMATOCRIT 27.2 % (39.0-51.0); MEAN CELL VOLUME 89.4 FL (80.0-100.0); MEAN CORPUSCULAR HEMOGLOBIN 29.7 PG (27.0-34.0); MEAN CORPUSCULAR HGB CONC 33.2 % (32.0-36.0); MEAN PLATELET VOLUME 9.2 FL (7.0-11.0); PLATELET COUNT 235 TH/MM3 (150-450); RED BLOOD COUNT 3.04 MIL/MM3 (4.50-5.90); RED CELL DISTRIBUTION WIDTH 14.3 % (11.6-17.2); WHITE BLOOD COUNT 16.8 TH/MM3 (4.0-11.0)
[2018-03-12 05:36] LABS: BICARBONATE 25.7 MEQ/L (21.0-32.0); CALCIUM 7.9 MG/DL (8.5-10.1); CREATININE 1.17 MG/DL (0.60-1.30)
[2018-03-12] MEDS: PHENYLEPHRINE INJ 40 MG in DEXTROSE 5% IN WATE 500 ML INJ 496 ML IV PRN ×2 (07:53)
[2018-03-12] MEDS ORDERED: LISINOPRIL 20 MG TAB PO SCH (09:00)
[2018-03-12] MEDS ORDERED: HYDROCHLOROTHIAZIDE 25 MG TAB PO SCH (09:00)
[2018-03-12] MEDS ORDERED: NON-FORMULARY DRUG (Lisinopril-Hctz 1 TAB) PO SCH (09:00)
[2018-03-12] MEDS: METOPROLOL TARTRATE 25 MG TAB PO SCH ×2 (09:00→21:00)
[2018-03-12] MEDS ORDERED: ASPIRIN EC 81 MG TABEC PO SCH (09:00)
--- NOTE | 2018-03-12 09:35 | PD.CARD.PN ---
Subjective Subjective Remarks Doing better this am still with residual deficit on right side and speech groins soft and bruised. Objective Medications Current Medications Medications (Trade) Dose Ordered Sig/Yuki Route Start Time Stop Time Status Last Admin Cefazolin Sodium/ Dextrose 50 ml @ 100 mls/hr HORSE RACER PRN IV 03/11/18 10:00 03/14/18 09:59 03/11/18 12:30 (Betadine 5% Antisepsis Kit) 1 applic HORSE RACER PRN EACH NARE 03/11/18 10:00 03/14/18 09:59 (Bactroban Nasal 2% Oint) 1 applic HORSE RACER PRN EACH NARE 03/11/18 10:00 03/14/18 09:59 (Chlorhexidine 2% Cloth) 3 pack HORSE RACER PRN TOPICAL 03/11/18 10:00 03/14/18 09:59 (Lopressor) 25 mg HORSE RACER PRN PO 03/11/18 10:00 03/14/18 09:59 (Betadine 5% Antisepsis Kit) 1 applic HORSE RACER PRN EACH NARE 03/11/18 10:00 03/14/18 09:59 (Chlorhexidine 2% Cloth) 3 pack HORSE RACER PRN TOPICAL 03/11/18 10:00 03/14/18 09:59 (Duoneb Neb) 1 ampule Q6HR NEB INH 03/11/18 16:00 03/12/18 04:23 (Duoneb Neb) 1 ampule Q2HR NEB PRN INH 03/11/18 14:00 Potassium Chloride 100 ml @ 50 mls/hr Q2H PRN IV 03/11/18 14:00 Potassium Chloride 100 ml @ 50 mls/hr Q2H PRN IV 03/11/18 14:00 (K-Lyte Cl Eff) 50 meq UNSCH PRN PO 03/11/18 14:00 Potassium Chloride 100 ml @ 25 mls/hr UNSCH PRN IV 03/11/18 14:00 Potassium Chloride 100 ml @ 50 mls/hr Q2H PRN IV 03/11/18 14:00 Magnesium Sulfate 4 gm/Sodium Chloride 100 ml @ 50 mls/hr UNSCH PRN IV 03/11/18 14:00 (Mag-Ox) 800 mg UNSCH PRN PO 03/11/18 14:00 Magnesium Sulfate 2 gm/Sodium Chloride 100 ml @ 50 mls/hr UNSCH PRN IV 03/11/18 14:00 (K-Phos) 2,000 mg Q4H PRN PO 03/11/18 14:00 Sodium Phosphate 30 mmol/Sodium Chloride 250 ml @ 42 mls/hr UNSCH PRN IV 03/11/18 14:00 (K-Phos) 2,000 mg UNSCH PRN PO/TUBE 03/11/18 14:00 Potassium Phosphate 30 mmol/ Sodium Chloride 260 ml @ 42 mls/hr UNSCH PRN IV 03/11/18 14:00 (Ecotrin Ec) 81 mg DAILY PO 03/12/18 09:00 (Symbicort 160-4.5 Mcg Inh) 2 puff Q12HR INH 03/11/18 21:00 (Colace) 100 mg BID PO 03/11/18 21:00 (Lopressor) 12.5 mg BID PO 03/12/18 09:00 (Pepcid) 20 mg BID PO 03/11/18 21:00 (Lipitor) 80 mg DAILY PO 03/12/18 09:00 (NovoLIN R SUPPLEMENTAL SCALE) 1 ACHS AND 3AM SQ 03/11/18 17:00 03/12/18 03:00 (Aspirin Chew) 81 mg DAILY PO 03/12/18 09:00 (Plavix) 75 mg DAILY PO 03/12/18 09:00 (D50w (Vial) Inj) 50 ml UNSCH PRN IV PUSH 03/11/18 14:30 (Glucagon Inj) 1 mg UNSCH PRN OTHER 03/11/18 14:30 (Prinivil) 20 mg DAILY PO 03/12/18 09:00 (Hydrodiuril) 12.5 mg DAILY PO 03/12/18 09:00 Phenylephrine HCl 40 mg/Dextrose 500 ml @ 30 mls/hr TITRATE PRN IV 03/11/18 15:30 03/12/18 07:53 (Brethine Inj) 1 mg UNSCH PRN SQ 03/11/18 15:30 Acetaminophen 100 ml @ 400 mls/hr Q6H PRN IV 03/11/18 16:30 03/11/18 23:40 Sodium Chloride 1,000 ml @ 84 mls/hr [id number] IV 03/11/18 19:00 03/11/18 19:00 Vital Signs / I&O Vital Signs Date Time Temp Pulse Resp B/P (MAP) Pulse Ox O2 Delivery O2 Flow Rate FiO2 03/12/18 07:53 73 148/51 03/12/18 07:00 68 03/12/18 07:00 97 Simple Mask 6.00 03/12/18 04:00 98.4 75 16 120/55 (76) 99 135/48 (77) 03/12/18 04:00 99 Simple Mask 6.00 03/12/18 04:00 75 03/12/18 00:00 60 03/12/18 00:00 98.3 60 18 146/62 (90) 99 163/61 (95) 03/12/18 00:00 99 Simple Mask 8.00 03/11/18 22:08 98 Simple Mask 8.00 03/11/18 22:00 98 Simple Mask 8.00 03/11/18 22:00 98 Simple Mask 8.00 03/11/18 20:00 97.6 59 18 138/54 (82) 99 152/53 (86) 03/11/18 20:00 58 03/11/18 20:00 98 Partial Non-Rebreather 03/11/18 17:35 72 135/52 03/11/18 16:00 99 Partial Rebreather 12.00 03/11/18 16:00 99 Partial Non-Rebreather 03/11/18 15:00 97.2 79 20 139/57 (84) 99 03/11/18 15:00 99 Non-Rebreather 03/11/18 15:00 89 03/11/18 14:35 97.2 89 20 96/46 (63) 99 109/35 (59) 03/11/18 14:35 97 Nasal Cannula 6.00 03/11/18 14:35 97 Nasal Cannula 6.00 03/11/18 09:42 98.4 65 16 146/79 (101) 97 I/O 03/11/18 03/11/18 03/11/18 03/12/18 03/12/18 03/12/18 06:59 14:59 22:59 06:59 14:59 22:59 Intake Total 1500 ml 451 ml 1474 ml Output Total 190 ml 380 ml 440 ml Balance 1310 ml 71 ml 1034 ml Intake Oral 0 ml IV Total 451 ml 1474 ml Other 1500 ml Output Urine Total 150 ml 380 ml 440 ml Estimated Blood Loss 40 ml # Bowel Movements 0 0 Physical Exam HEAD: Normocephalic. EYES: No scleral icterus. No injection or drainage. NECK: Supple, trachea midline. No JVD or lymphadenopathy. CARDIOVASCULAR: Regular rate and rhythm without murmurs, gallops, or rubs. RESPIRATORY: Breath sounds equal bilaterally. No accessory muscle use. GASTROINTESTINAL: Abdomen soft, non-tender, nondistended. MUSCULOSKELETAL: No cyanosis, or edema. BACK: Nontender without obvious deformity. No CVA tenderness. NEURO: RUE/RLE 5/5 strength. Thumb and 1st digit still not coordinated. right sided facial droop still mildly present Laboratory Laboratory Tests Test 03/11/18 14:53 03/12/18 04:20 White Blood Count 12.0 TH/MM3 16.8 TH/MM3 Red Blood Count 3.57 MIL/MM3 3.04 MIL/MM3 Hemoglobin 10.5 GM/DL 9.0 GM/DL Bedside Hemoglobin 9.9 G/DL Hematocrit 32.2 % 27.2 % Bedside Hematocrit 29.0 % Mean Corpuscular Volume 90.2 FL 89.4 FL Mean Corpuscular Hemoglobin 29.4 PG 29.7 PG Mean Corpuscular Hemoglobin Concent 32.6 % 33.2 % Red Cell Distribution Width 14.1 % 14.3 % Platelet Count 237 TH/MM3 235 TH/MM3 Mean Platelet Volume 9.3 FL 9.2 FL Neutrophils (%) (Auto) 72.9 % Lymphocytes (%) (Auto) 15.7 % Monocytes (%) (Auto) 6.5 % Eosinophils (%) (Auto) 4.5 % Basophils (%) (Auto) 0.4 % Neutrophils # (Auto) 8.8 TH/MM3 Lymphocytes # (Auto) 1.9 TH/MM3 Monocytes # (Auto) 0.8 TH/MM3 Eosinophils # (Auto) 0.5 TH/MM3 Basophils # (Auto) 0.0 TH/MM3 CBC Comment DIFF FINAL Differential Comment Prothrombin Time 12.7 SEC Prothromb Time International Ratio 1.3 RATIO Activated Partial Thromboplast Time 28.6 SEC Fibrinogen 423 mg/dL Bedside Sodium 136 MMOL/L Blood Urea Nitrogen 19 MG/DL 23 MG/DL Creatinine 1.09 MG/DL 1.17 MG/DL Random Glucose 164 MG/DL 164 MG/DL Calcium Level 8.2 MG/DL 7.9 MG/DL Sodium Level 137 MEQ/L 138 MEQ/L Potassium Level 4.5 MEQ/L 5.0 MEQ/L Chloride Level 104 MEQ/L 105 MEQ/L Carbon Dioxide Level 25.0 MEQ/L 25.7 MEQ/L Bedside Potassium 4.6 MMOL/L Bedside Chloride 101 MMOL/L Anion Gap 8 MEQ/L 7 MEQ/L Bedside Blood Urea Nitrogen 19 MG/DL Bedside Creatinine 1.1 MG/DL Estimat Glomerular Filtration Rate 66 ML/MIN 61 ML/MIN Bedside Glucose 164 MG/DL Total Creatine Kinase 65 U/L Troponin I 0.85 NG/ML Imaging Last Impressions Neck CTA 03/11/18 0000 Signed Impressions: Service Date/Time: Sunday, March 11, 2018 14:53 - CONCLUSION: 1. Atherosclerotic plaquing at the bifurcations with hard and soft plaque present. No hemodynamically significant lesion identified. 2. CTA of the brain is pending. This examination was reviewed with Dr. Maynard at approximately 1500 hrs. Primitivo Li MD Head CTA 03/11/18 0000 Signed Impressions: Service Date/Time: Sunday, March 11, 2018 14:53 - CONCLUSION: Unremarkable CTA of the brain. Renny Norris MD Head CT 03/11/18 0000 Signed Impressions: Service Date/Time: Sunday, March 11, 2018 14:53 - CONCLUSION: 1. No acute intracranial hemorrhage. 2. Small old right lacunar infarcts in the basal ganglia. Renny Norris MD Chest X-Ray 03/11/18 0000 Signed Impressions: Service Date/Time: Sunday, March 11, 2018 14:39 - CONCLUSION: 1. Left lung base atelectasis. 2. Linear lucency in the midclavicular mid to superior right hemithorax. Suspect this reflects a skinfold or is external to the patient. Repeat radiograph in slight obliquity may be performed if there is sufficient clinical concern. Dwight Camarena MD Assessment and Plan Assessment and Plan Severe aortic valve stenosis - s/p TAVR. post procedure DELMI hemodynamics:JANNA 1.2 cm2, Mean gradient 4 mmHg, Peak velocity 2.5 cm/s, mild paravalvular leak. asa plavix monitor groins. up to chair CVA - residual symptoms but improving slowly. appreciate neuro assistance. CTA done yest. no intervention. medical mgt. PT/OT. probable SNF. CM consult. permissive HTN. Ty Alberto MD March 12, 2018 09:35
[2018-03-12] MEDS: BUDESONIDE-FORMOTEROL 160/4.5 MCG INHALER INH SCH ×2 (09:53→21:58)
--- NOTE | 2018-03-12 11:46 | RADRPT ---
EXAM DATE/TIME: 03/12/2018 11:14 [facility] COMPARISON: CHEST SINGLE AP, March 11, 2018, 14:39. INDICATIONS : NG tube placement MEDICAL HISTORY : Hypertension. Chronic obstructive pulmonary disease. Diabetes mellitus type SURGICAL HISTORY : ENCOUNTER: Subsequent ACUITY: 2 days PAIN SCORE: 10/10 LOCATION: Bilateral chest FINDINGS: Portable AP view of the chest demonstrates a normal-sized cardiac silhouette with calcification of th e aorta. Patient is post median sternotomy and valve replacement. Left subclavian central line is pre sent. Distal tip is not well-visualized but may be within the brachiocephalic vein. Nasogastric tube courses beyond the GE junction into the stomach. Distal tip is not visualized. There is left basilar airspace opacity. No pneumothorax or pleural effusion is identified. CONCLUSION: 1. Nasogastric tube extends into the stomach. Distal tip is not visualized on this exam. 2. Stable left basilar airspace opacity which could represent atelectasis or consolidation. Félix Holt MD on March 12, 2018 at 11:42 Board Certified Radiologist. This report was verified electronically.
[2018-03-12] MEDS: ATORVASTATIN 80 MG TAB PO SCH (11:55)
[2018-03-12] MEDS: DOCUSATE SODIUM 100 MG CAP PO SCH ×2 (11:55→21:55)
[2018-03-12] MEDS: CLOPIDOGREL 75 MG TAB PO SCH (11:56)
[2018-03-12] MEDS: FAMOTIDINE 20 MG TAB PO SCH ×2 (11:56→21:55)
[2018-03-12] MEDS: ASPIRIN 81 MG CHEW TAB PO SCH (11:56)
[2018-03-12] MEDS ORDERED: FUROSEMIDE 20 MG TAB PO ONE (12:30)
--- NOTE | 2018-03-12 12:39 | PD.CAR.PN ---
CVT Progress Note Subjective/Hospital Course: 77-year-old man who has a history of severe aortic stenosis with coronary artery disease, admitted for AVR CABG on 03/04/2018. He had a porcelain aorta per notes, received elective transcatheter aortic valve replacement, underwent uncomplicated procedure. After awakening from anesthesia however, he started to develop the inability to speak and right-sided weakness and a stat CT was done that did not show anything acute and CTA of the carotids and [place] band of [place] did not show any major vessel occlusions. surgery: 03/11 Transcatheter aortic valve replacement with a 29 Evolut Pro tissue valve Balloon aortic valvuloplasty with a 23 True Flow balloon Bilateral percutaneous femoral artery access with Perclose closure on the left Left femoral venous access Aortography 03/12 He is improving in the right-sided weakness, still expressively aphasic with right facial droop, but following commands. pending swallow eval per Neuro HOB 30 degrees, SBP 140-180 on Chaitanya gtt at 50mcq right groin with some swelling/ erythema left groin with mild ecchymosis Objective: GENERAL: SKIN: Warm and dry. dressing to both froins HEAD: Normocephalic. EYES: No scleral icterus. No injection or drainage. NECK: Supple, trachea midline. No JVD or lymphadenopathy. CARDIOVASCULAR: Regular rate and rhythm without murmurs, gallops, or rubs. RESPIRATORY: Breath sounds equal bilaterally. No accessory muscle use. GASTROINTESTINAL: Abdomen soft, non-tender, nondistended. MUSCULOSKELETAL: No cyanosis, or edema. BACK: Nontender without obvious deformity. No CVA tenderness. Vital Signs Date Time Temp Pulse Resp B/P (MAP) Pulse Ox O2 Delivery O2 Flow Rate FiO2 03/12/18 11:00 85 03/12/18 11:00 97 Nasal Cannula 3.00 03/12/18 11:00 98.8 85 16 163/77 (105) 85 165/56 (92) 03/12/18 10:15 98 Nasal Cannula 5.00 03/12/18 07:53 73 148/51 03/12/18 07:00 68 03/12/18 07:00 97 Simple Mask 6.00 03/12/18 07:00 98.6 68 14 123/60 (81) 97 155/54 (87) 03/12/18 04:00 98.4 75 16 120/55 (76) 99 135/48 (77) 03/12/18 04:00 99 Simple Mask 6.00 03/12/18 04:00 75 03/12/18 00:00 60 03/12/18 00:00 98.3 60 18 146/62 (90) 99 163/61 (95) 03/12/18 00:00 99 Simple Mask 8.00 03/11/18 22:08 98 Simple Mask 8.00 03/11/18 22:00 98 Simple Mask 8.00 03/11/18 22:00 98 Simple Mask 8.00 03/11/18 20:00 97.6 59 18 138/54 (82) 99 152/53 (86) 03/11/18 20:00 58 03/11/18 20:00 98 Partial Non-Rebreather 03/11/18 17:35 72 135/52 03/11/18 16:00 99 Partial Rebreather 12.00 03/11/18 16:00 99 Partial Non-Rebreather 03/11/18 15:00 97.2 79 20 139/57 (84) 99 03/11/18 15:00 99 Non-Rebreather 03/11/18 15:00 89 03/11/18 14:35 97.2 89 20 96/46 (63) 99 109/35 (59) 03/11/18 14:35 97 Nasal Cannula 6.00 03/11/18 14:35 97 Nasal Cannula 6.00 Labs: Laboratory Tests Test 03/12/18 04:20 White Blood Count 16.8 TH/MM3 (4.0-11.0) Red Blood Count 3.04 MIL/MM3 (4.50-5.90) Hemoglobin 9.0 GM/DL (13.0-17.0) Hematocrit 27.2 % (39.0-51.0) Mean Corpuscular Volume 89.4 FL (80.0-100.0) Mean Corpuscular Hemoglobin 29.7 PG (27.0-34.0) Mean Corpuscular Hemoglobin Concent 33.2 % (32.0-36.0) Red Cell Distribution Width 14.3 % (11.6-17.2) Platelet Count 235 TH/MM3 (150-450) Mean Platelet Volume 9.2 FL (7.0-11.0) Blood Urea Nitrogen 23 MG/DL (7-18) Creatinine 1.17 MG/DL (0.60-1.30) Random Glucose 164 MG/DL (74-106) Calcium Level 7.9 MG/DL (8.5-10.1) Sodium Level 138 MEQ/L (136-145) Potassium Level 5.0 MEQ/L (3.5-5.1) Chloride Level 105 MEQ/L (98-107) Carbon Dioxide Level 25.7 MEQ/L (21.0-32.0) Anion Gap 7 MEQ/L (5-15) Estimat Glomerular Filtration Rate 61 ML/MIN (>89) Result Diagram: 03/12/1841903/12/18419 (1) S/P TAVR (transcatheter aortic valve replacement) Plan: on ASA, plavix temporary pacer wire removed without difficultly . will defer further orders per Dr Remy young se prn (2) CVA (cerebral vascular accident) Plan: PT/OT/ speech therapy neuro following , for repeat CT Brain today (3) CAD (coronary artery disease) (4) COPD (chronic obstructive pulmonary disease) (5) Diastolic CHF (6) Aortic stenosis (7) Median sternotomy Plan: daily wound care Cyndie Gordon March 12, 2018 12:39
--- NOTE | 2018-03-12 12:51 | HHI.CCPN ---
Subjective Remarks/Hospital Course This is a 77-year-old male with a history of severe aortic stenosis as well as coronary artery disease who was initially admitted for attempted AVR cab on 03/04. 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 He represents for elective transcatheter aortic valve replacement. He underwent uncomplicated procedure via groin access. He presents to the CVICU in stable condition arousing from anesthesia. Due to his somnolence, review of systems is limited no additional information is available from the patient. The remainder of the history is obtained from the medical record. SUBJ 03/12/18: Developed acute L MCA stroke post TAVR. Neurology consulted and following. Currently on aspirin and Plavix. Chaitanya-Synephrine to keep map 160- 180 for at least another [address] Rodríguez. Strength improving on the right side but steady significant aphasia and facial droop Objective Vital Signs Date Time Temp Pulse Resp B/P (MAP) Pulse Ox O2 Delivery O2 Flow Rate FiO2 03/12/18 11:00 85 03/12/18 11:00 97 Nasal Cannula 3.00 03/12/18 11:00 98.8 16 163/77 (105) 165/56 (92) Intake and Output 03/12/18 03/12/18 03/13/18 08:00 16:00 00:00 Intake Total 1474 ml Output Total 440 ml Balance 1034 ml Result Diagram: 03/12/18 0420 03/12/18 0420 Objective Remarks GENERAL: Elderly male, lying in bed, awake significant expressive aphasia, left facial droop HEENT: Normocephalic. Atraumatic. Pupils equal, round, reactive, prominent right facial droop NECK: Trachea is midline. There is no JVD. Right IJ introducer sheath with transvenous pacer in place, site is clean dry and intact. CHEST: Equal chest rise. Nasal cannula oxygen. CARDIOVASCULAR: Normal rate, regular rhythm. Sinus by telemetry. Transvenous pacer is set VVI at a backup rate of 50 ABDOMEN: Soft, nontender, nondistended. No guarding. MUSCULOSKELETAL: Pulses 2+. No peripheral edema. Bilateral groin sites with dressings intact, clean, dry, no evidence of hematoma. NEUROLOGICAL: Patient is alert awake significant expressive aphasia and right facial droop. Motor strength 5 out of 5 on the left side 4 out of 5 on the right side A/P Assessment and Plan Assessment: 77-year-old male postop day 1 status post transcatheter aortic valve replacement, complicated by acute left MCA stroke Acute left MCA stroke post TAVR Continue aspirin Plavix per neurology Continue Chaitanya-Synephrine currently at 50 mcg/kg/min to keep systolic blood pressure 160-180 CTA/CT brain 03/11/18 without acute findings PT/OT/Speech Neurology Dr. Rodríguez Status post transcatheter aortic valve replacement 03/11 with common iliac access Maintenance IV fluids. Close neurovascular checks Close urine output monitoring Anticoagulation per Dr. zuleta Continue aspirin Plavix COPD Nebs Aggressive pulmonary toilet Wean FiO2 for goal SPO2 greater than 90% Out of bed per PT Hypertension Goal systolic blood pressure 160- 180 Hold home antihypertensives Hyperlipidemia Restart home statin via NGT Diabetes Sliding-scale insulin Coronary artery disease Restart aspirin, plavix added GERD Home h2 carson Did not pass swallow eval. NG tube inserted start feeding SCDs CCT 32 min. Currently critically ill with acute left MCA stroke with aphasia and dysphagia. Patient is at high risk for acute decompensation and also risk for cerebral edema and midline shift. Follow-up CT imaging per neurology Huma Heard MD March 12, 2018 12:51
[2018-03-12] MEDS: SODIUM CHLOR 0.9% 1000 ML INJ 1,000 ML IV SCH (14:05)
--- NOTE | 2018-03-12 15:12 | HHI.PR ---
Subjective Remarks no new issues.Did fail swallow eval-has ngt pending ct brain this afternoon. frustrated with speech. Objective Vital Signs Date Time Temp Pulse Resp B/P (MAP) Pulse Ox O2 Delivery O2 Flow Rate FiO2 03/12/18 11:00 85 03/12/18 11:00 97 Nasal Cannula 3.00 03/12/18 11:00 98.8 85 16 163/77 (105) 85 165/56 (92) 03/12/18 10:15 98 Nasal Cannula 5.00 03/12/18 07:53 73 148/51 03/12/18 07:00 68 03/12/18 07:00 97 Simple Mask 6.00 03/12/18 07:00 98.6 68 14 123/60 (81) 97 155/54 (87) 03/12/18 04:00 98.4 75 16 120/55 (76) 99 135/48 (77) 03/12/18 04:00 99 Simple Mask 6.00 03/12/18 04:00 75 03/12/18 00:00 60 03/12/18 00:00 98.3 60 18 146/62 (90) 99 163/61 (95) 03/12/18 00:00 99 Simple Mask 8.00 03/11/18 22:08 98 Simple Mask 8.00 03/11/18 22:00 98 Simple Mask 8.00 03/11/18 22:00 98 Simple Mask 8.00 03/11/18 20:00 97.6 59 18 138/54 (82) 99 152/53 (86) 03/11/18 20:00 58 03/11/18 20:00 98 Partial Non-Rebreather 03/11/18 17:35 72 135/52 03/11/18 16:00 99 Partial Rebreather 12.00 03/11/18 16:00 99 Partial Non-Rebreather I/O 03/11/18 03/11/18 03/11/18 03/12/18 03/12/18 03/12/18 07:00 15:00 23:00 07:00 15:00 23:00 Intake Total 1500 ml 451 ml 1474 ml Output Total 190 ml 380 ml 440 ml Balance 1310 ml 71 ml 1034 ml Intake Oral 0 ml IV Total 451 ml 1474 ml Other 1500 ml Output Urine Total 150 ml 380 ml 440 ml Estimated Blood Loss 40 ml # Bowel Movements 0 0 Result Diagram: 03/12/1841903/12/18419 Objective Remarks awake alert right facial did say his name perrla expressive aphasia rue 02/12 gait bedrest 30degree today Assessment and Plan Assessment and Plan left mca inf. s/p tavr -asa/plavix -permissible hypertension nex 34-48hrs- ct brain today if stable-oob with PT in am. scd's Janice Rodríguez MD March 12, 2018 15:12
--- NOTE | 2018-03-12 15:44 | EKG ---
Date Performed: 03/11/2018 Time Performed: 16:00:34 PTAGE: 77 years EKG: Sinus rhythm . Possible inferior infarct - age undetermined Lateral ST-T changes may be due to myocardial ischemia Abnormal ECG PREVIOUS TRACING : 03/11/2018 09.41 Since the prior tracing, the early R-wave transition has re solved. The lateral T-wave changes are new. The previous tracing had so much artifact that it is diff icult to be certain, but the criteria for the possible inferior wall infarct may be new. Clinical cor relation is advised. DOCTOR: Ericka Fernandez Interpretating Date/Time 03/12/2018 15:44:08
--- NOTE | 2018-03-12 15:46 | EKG ---
Date Performed: 03/12/2018 Time Performed: 06:02:06 PTAGE: 77 years EKG: Sinus rhythm Extensive ST-T changes may be due to myocardial ischemia Abnormal ECG PREVIOUS TRACING : 03/11/2018 16.00 Since the prior tracing, criteria for the questionable infe rior wall infarct are no longer present. The EKG is otherwise without significant serial change. DOCTOR: Ericka Fernandez Interpretating Date/Time 03/12/2018 15:44:54
--- NOTE | 2018-03-12 17:00 | RADRPT ---
EXAM DATE/TIME: 03/12/2018 16:35 [facility] COMPARISON: CT BRAIN W/O CONTRAST, March 11, 2018, 14:53. INDICATIONS : Stroke RADIATION DOSE: 39.09 CTDIvol (mGy) MEDICAL HISTORY : Cardiovascular disease. Hypertension. Chronic obstructive pulmonary disease.Diabetes, aortic stenosis SURGICAL HISTORY : TAVR ENCOUNTER: Subsequent ACUITY: 2 days PAIN SCALE: 2/10 LOCATION: cranial TECHNIQUE: Multiple contiguous axial images were obtained of the head. Using automated exposure control and adj ustment of the mA and/or kV according to patient size, radiation dose was kept as low as reasonably a chievable to obtain optimal diagnostic quality images. DICOM format image data is available electro nically for review and comparison. FINDINGS: CEREBRUM: Abnormal. There is a new irregular shape hypodensity measuring 3.5 x 2.0 cm located in the mid to hi gh convexity left parietal region involving both scott and white matter; this is a new finding when co mpared to yesterday CT scan and is suspicious for acute nonhemorrhagic infarction. No evidence of ma ss effect. The ventricles are symmetric in size. No extra-axial fluid. POSTERIOR FOSSA: The cerebellum and brainstem are intact. The 4th ventricle is midline. The cerebellopontine angle i s unremarkable. EXTRACRANIAL: The visualized portion of the orbits is intact. SKULL: The calvaria is intact. No evidence of skull fracture. CONCLUSION: Interval development of a 3.5 cm hypodensity in the left parietal lobe suspicious for acute nonhemorr hagic infarction. Britton York MD on March 12, 2018 at 16:55 Board Certified Radiologist. This report was verified electronically.
--- NOTE | 2018-03-12 17:22 | ECHRPT ---
Indication: S/P TAVR CONCLUSIONS Normal left ventricular size. Mild concentric left ventricular hypertrophy. The left ventricular systolic function is hyperdynamic with an estimated ejection fraction in the ra nge of 65- 70%. The left atrial size is mildly dilated. The right atrial size is mildly dilated. Vrixv-ru-rhne mitral valve regurgitation. Status-post percutaneous aortic valve replacement. Mild aortic valve regurgitation. Aortic valve mean gradient is 8 mmHg. There is trace tricuspid valve regurgitation. BP: 120 / 55 HR: 75 Rhythm: Sinus MEASUREMENTS (Male / Female) Normal Values Technical Quality:Fair 2D ECHO LV Diastolic Diameter PLAX 4.6 cm 4.2 - 5.9 / 3.9 - 5.3 cm LV Systolic Diameter PLAX 2.7 cm IVS Diastolic Thickness 1.1 cm 0.6 - 1.0 / 0.6 - 0.9 cm LVPW Diastolic Thickness 1.1 cm 0.6 - 1.0 / 0.6 - 0.9 cm LV Relative Wall Thickness 0.5 RV Internal Dim ED PLAX 2.3 cm LVOT Diameter 2.3 cm Aortic Root Diameter 3.0 cm LA Systolic Diameter LX 3.1 cm 3.0 - 4.0 / 2.7 - 3.8 cm DOPPLER AV Peak Velocity 201.0 cm/s AV Peak Gradient 16.2 mmHg AV Mean Gradient 8.0 mmHg AV Velocity Time Integral 39.6 cm LVOT Peak Velocity 61.7 cm/s LVOT Peak Gradient 1.5 mmHg LVOT Velocity Time Integral 12.3 cm AV Area Cont Eq vti 1.3 cm AV Area Cont Eq pk 1.3 cm Mitral E Point Velocity 96.3 cm/s Mitral A Point Velocity 80.9 cm/s Mitral E to A Ratio 1.2 PV Peak Velocity 67.7 cm/s PV Peak Gradient 1.8 mmHg FINDINGS LEFT VENTRICLE Normal left ventricular size. Mild concentric left ventricular hypertrophy. The left ventricular systolic function is hyperdynamic with an estimated ejection fraction in the ra nge of 65- 70%. RIGHT VENTRICLE Normal right ventricular size and systolic function. LEFT ATRIUM The left atrial size is mildly dilated. RIGHT ATRIUM The right atrial size is mildly dilated. ATRIAL SEPTUM The interatrial septum not well visualized. AORTA The aortic root and proximal ascending aorta are not well visualized. MITRAL VALVE Oxedt-po-eekt mitral valve regurgitation. AORTIC VALVE Status-post percutaneous aortic valve replacement. Mild aortic valve regurgitation. Aortic valve mean gradient is 8 mmHg. TRICUSPID VALVE There is trace tricuspid valve regurgitation. PULMONARY VALVE The pulmonary valve is not well visualized. VESSELS The inferior vena cava was not well visualized. PERICARDIUM No pericardial effusion. Ty Alberto MD, FACC (Electronically Signed) Final Date:12 Mar 2018 17:21
[2018-03-13] VITALS (8 sets, daily range): BP systolic 120–161; BP diastolic 50–66; PULSE 4–104; RESP 16–22; TEMP 97.9–99.7; O2SAT 92–96
[2018-03-13] MEDS: PHENYLEPHRINE INJ 40 MG in DEXTROSE 5% IN WATE 500 ML INJ 496 ML IV PRN ×2 (01:29)
[2018-03-13] MEDS: INSULIN NovoLIN REGULAR SUPPLEMENTAL SCALE SQ SCH ×5 (03:00→21:00)
[2018-03-13] MEDS: RESP: ALBUTEROL 2.5 MG/IPRATROPIUM 0.5 MG NEB (SCH) INH ×4 (04:25→22:11)
--- NOTE | 2018-03-13 07:02 | RADRPT ---
EXAM DATE/TIME: 03/13/2018 06:46 [facility] COMPARISON: CHEST SINGLE AP, March 12, 2018, 11:14. INDICATIONS : Pleural effusion. MEDICAL HISTORY : Cardiovascular disease. Hypertension. Chronic obstructive pulmonary. disease.Diabetes, aortic stenosi s SURGICAL HISTORY : TAVR ENCOUNTER: Subsequent ACUITY: 1 day PAIN SCORE: Non-responsive. LOCATION: Bilateral chest FINDINGS: Nasogastric tube descends into the stomach. Prosthetic aortic valve is noted. Hazy bibasilar pleural- parenchymal opacities are slightly worse than on previous exam. Cardiac contours are grossly unchange d. CONCLUSION: Worsening aeration Félix Guido MD on March 13, 2018 at 6:59 Board Certified Radiologist. This report was verified electronically.
--- NOTE | 2018-03-13 07:56 | PD.CARD.PN ---
Subjective Subjective Remarks Patient has some expressive aphasia. He is able to express that he does not have any chest pain or breathing problems. He feels right-sided deficits have improved a little. (Wilian Reed) Objective Medications Current Medications Medications (Trade) Dose Ordered Sig/Yuki Route Start Time Stop Time Status Last Admin Cefazolin Sodium/ Dextrose 50 ml @ 100 mls/hr SYSTEMS QA ANALYST PRN IV 03/11/18 10:00 03/14/18 09:59 03/11/18 12:30 (Betadine 5% Antisepsis Kit) 1 applic SYSTEMS QA ANALYST PRN EACH NARE 03/11/18 10:00 03/14/18 09:59 (Bactroban Nasal 2% Oint) 1 applic SYSTEMS QA ANALYST PRN EACH NARE 03/11/18 10:00 03/14/18 09:59 (Chlorhexidine 2% Cloth) 3 pack SYSTEMS QA ANALYST PRN TOPICAL 03/11/18 10:00 03/14/18 09:59 (Lopressor) 25 mg SYSTEMS QA ANALYST PRN PO 03/11/18 10:00 03/14/18 09:59 (Betadine 5% Antisepsis Kit) 1 applic SYSTEMS QA ANALYST PRN EACH NARE 03/11/18 10:00 03/14/18 09:59 (Chlorhexidine 2% Cloth) 3 pack SYSTEMS QA ANALYST PRN TOPICAL 03/11/18 10:00 03/14/18 09:59 (Duoneb Neb) 1 ampule Q6HR NEB INH 03/11/18 16:00 03/13/18 04:25 (Duoneb Neb) 1 ampule Q2HR NEB PRN INH 03/11/18 14:00 Potassium Chloride 100 ml @ 50 mls/hr Q2H PRN IV 03/11/18 14:00 Potassium Chloride 100 ml @ 50 mls/hr Q2H PRN IV 03/11/18 14:00 (K-Lyte Cl Eff) 50 meq UNSCH PRN PO 03/11/18 14:00 Potassium Chloride 100 ml @ 25 mls/hr UNSCH PRN IV 03/11/18 14:00 Potassium Chloride 100 ml @ 50 mls/hr Q2H PRN IV 03/11/18 14:00 Magnesium Sulfate 4 gm/Sodium Chloride 100 ml @ 50 mls/hr UNSCH PRN IV 03/11/18 14:00 (Mag-Ox) 800 mg UNSCH PRN PO 03/11/18 14:00 Magnesium Sulfate 2 gm/Sodium Chloride 100 ml @ 50 mls/hr UNSCH PRN IV 03/11/18 14:00 (K-Phos) 2,000 mg Q4H PRN PO 03/11/18 14:00 Sodium Phosphate 30 mmol/Sodium Chloride 250 ml @ 42 mls/hr UNSCH PRN IV 03/11/18 14:00 (K-Phos) 2,000 mg UNSCH PRN PO/TUBE 03/11/18 14:00 Potassium Phosphate 30 mmol/ Sodium Chloride 260 ml @ 42 mls/hr UNSCH PRN IV 03/11/18 14:00 (Ecotrin Ec) 81 mg DAILY PO 03/12/18 09:00 (Symbicort 160-4.5 Mcg Inh) 2 puff Q12HR INH 03/11/18 21:00 03/12/18 21:58 (Colace) 100 mg BID PO 03/11/18 21:00 03/12/18 21:55 (Lopressor) 12.5 mg BID PO 03/12/18 09:00 (Pepcid) 20 mg BID PO 03/11/18 21:00 03/12/18 21:55 (Lipitor) 80 mg DAILY PO 03/12/18 09:00 (NovoLIN R SUPPLEMENTAL SCALE) 1 ACHS AND 3AM SQ 03/11/18 17:00 03/12/18 12:00 (Aspirin Chew) 81 mg DAILY PO 03/12/18 09:00 03/12/18 11:56 (Plavix) 75 mg DAILY PO 03/12/18 09:00 03/12/18 11:56 (D50w (Vial) Inj) 50 ml UNSCH PRN IV PUSH 03/11/18 14:30 (Glucagon Inj) 1 mg UNSCH PRN OTHER 03/11/18 14:30 (Prinivil) 20 mg DAILY PO 03/12/18 09:00 (Hydrodiuril) 12.5 mg DAILY PO 03/12/18 09:00 03/12/18 11:54 Phenylephrine HCl 40 mg/Dextrose 500 ml @ 30 mls/hr TITRATE PRN IV 03/11/18 15:30 03/13/18 01:29 (Brethine Inj) 1 mg UNSCH PRN SQ 03/11/18 15:30 Acetaminophen 100 ml @ 400 mls/hr Q6H PRN IV 03/11/18 16:30 03/11/18 23:40 Sodium Chloride 1,000 ml @ 40 mls/hr Q24H IV 03/11/18 19:00 03/12/18 14:05 Vital Signs / I&O Vital Signs Date Time Temp Pulse Resp B/P (MAP) Pulse Ox O2 Delivery O2 Flow Rate FiO2 03/13/18 03:00 93 03/13/18 03:00 93 Nasal Cannula 3.00 03/13/18 03:00 98.7 93 22 161/66 (97) 93 03/13/18 01:29 91 131/56 03/12/18 23:00 87 03/12/18 23:00 98.5 87 20 122/56 (78) 96 Arterial Line 03/12/18 23:00 96 Nasal Cannula 3.00 03/12/18 20:32 96 Nasal Cannula 2.00 03/12/18 19:00 98.6 84 18 135/57 (83) 97 Arterial Line 03/12/18 19:00 84 03/12/18 19:00 97 Nasal Cannula 3.00 03/12/18 15:00 96 Nasal Cannula 3.00 03/12/18 15:00 83 03/12/18 15:00 98.9 84 16 168/52 (90) 96 148/71 (96) 03/12/18 11:00 85 03/12/18 11:00 97 Nasal Cannula 3.00 03/12/18 11:00 98.8 85 16 163/77 (105) 85 165/56 (92) 03/12/18 10:15 98 Nasal Cannula 5.00 03/12/18 07:53 73 148/51 I/O 03/12/18 03/12/18 03/12/18 03/13/18 03/13/18 03/13/18 07:00 15:00 23:00 07:00 15:00 23:00 Intake Total 1474 ml 1095 ml 478 ml 1243 ml Output Total 440 ml 2020 ml 1200 ml Balance 1034 ml 1095 ml -1542 ml 43 ml Intake Oral 0 ml 0 ml 0 ml IV Total 1474 ml 1095 ml 428 ml 1183 ml Tube Irrigant 50 ml 60 ml Output Urine Total 440 ml 2020 ml 1200 ml Gastric Drainage Total 0 ml 0 ml # Bowel Movements 0 0 0 Physical Exam GENERAL: Well-developed well-nourished. In no acute distress. NECK: No carotid bruits. No JVD. CARDIOVASCULAR: Regular rate and rhythm. No murmur appreciated. RESPIRATORY: No accessory muscle use. Diminished breath sounds in the bases. MUSCULOSKELETAL: No clubbing or cyanosis. No edema. NEUROLOGICAL: Awake and alert. Expressive aphasia speech. Right-sided hemiparesis. Imaging Last 24 hours Impressions Chest X-Ray 03/13/18 0000 Signed Impressions: Service Date/Time: Tuesday, March 13, 2018 06:46 - CONCLUSION: Worsening aeration Félix Guido MD (Wilian Reed) Assessment and Plan Problem List: (1) S/P TAVR (transcatheter aortic valve replacement) ICD Codes: Z95.2 - Presence of prosthetic heart valve (2) CVA (cerebral vascular accident) ICD Codes: I63.9 - Cerebral infarction, unspecified (3) CAD (coronary artery disease) ICD Codes: I25.10 - Atherosclerotic heart disease of [place] coronary artery without angina pectoris (4) COPD (chronic obstructive pulmonary disease) ICD Codes: J44.9 - Chronic obstructive pulmonary disease, unspecified (5) Diastolic CHF ICD Codes: I50.30 - Unspecified diastolic (congestive) heart failure (6) Aortic stenosis ICD Codes: I35.0 - Nonrheumatic aortic (valve) stenosis (7) Median sternotomy Assessment and Plan Severe aortic valve stenosis - s/p TAVR. post procedure DELMI hemodynamics:JANNA 1.2 cm2, Mean gradient 4 mmHg, Peak velocity 2.5 cm/s, mild paravalvular leak. asa plavix Activity per neuro and rehab services CVA - residual symptoms but improving slowly. appreciate neuro assistance. medical mgt. PT/OT/ST. probable SNF. CM consult. permissive HTN per neuro. (Wilian Reed) Assessment and Plan TAVR - echo looks good CVA - PT/OT. SNF. CM. wean antwan gtt. neuro may want BP higher, will check with them appreciate neuro assistance. Hoping he will be ready for rehab at [place] early next week? (Ty Alberto MD) Wilian Reed March 13, 2018 07:56 Ty Alberto MD March 13, 2018 12:29
[2018-03-13] MEDS: FUROSEMIDE 20 MG/2 ML VIAL IV PUSH ONE ×2 (08:00→08:24)
--- NOTE | 2018-03-13 08:01 | HHI.CCPN ---
Subjective Remarks/Hospital Course This is a 77-year-old male with a history of severe aortic stenosis as well as coronary artery disease who was initially admitted for attempted AVR cab on 03/04. 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 He represents for elective transcatheter aortic valve replacement. He underwent uncomplicated procedure via groin access. He presents to the CVICU in stable condition arousing from anesthesia. Due to his somnolence, review of systems is limited no additional information is available from the patient. The remainder of the history is obtained from the medical record. SUBJ 03/12/18: Developed acute L MCA stroke post TAVR. Neurology consulted and following. Currently on aspirin and Plavix. Chaitanya-Synephrine to keep map 160- 180 for at least another [address] Rodríguez. Strength improving on the right side but steady significant aphasia and facial droop 03/13: CT of the head done yesterday shows 3.5 cm indicating acute infarction. Clinically stable at this time right hemiparesis gradually improving. Still has significant facial drooping and expressive aphasia even though he is able to state his name. Remains on Chaitanya-Synephrine to keep systolic blood pressure 140-180. I will hold his antihypertensives including lisinopril and hydrochlorothiazide. Objective Vital Signs Date Time Temp Pulse Resp B/P (MAP) Pulse Ox O2 Delivery O2 Flow Rate FiO2 03/13/18 03:00 93 03/13/18 03:00 93 Nasal Cannula 3.00 03/13/18 03:00 98.7 22 161/66 (97) Intake and Output 03/13/18 03/13/18 03/14/18 08:00 16:00 00:00 Intake Total 1243 ml Output Total 1200 ml Balance 43 ml Result Diagram: 03/12/18 0420 03/12/18 0420 Objective Remarks GENERAL: Elderly male, lying in bed, significant expressive aphasia, facial droop HEENT: Normocephalic. Atraumatic. Pupils equal, round, reactive, prominent right facial droop NECK: Trachea is midline. There is no JVD. CHEST: Equal chest rise. Nasal cannula oxygen. CARDIOVASCULAR: Normal rate, regular rhythm. Sinus by telemetry. Transvenous pacer removed ABDOMEN: Soft, nontender, nondistended. No guarding. MUSCULOSKELETAL: Pulses 2+. No peripheral edema. Bilateral groin sites with mild ecchymosis NEUROLOGICAL: Patient is alert awake significant expressive aphasia and right facial droop. Motor strength 5 out of 5 on the left side 4 out of 5 on the right side. Expressive aphasia slightly improved he seems to be able to state his name, even though speech is garbled A/P Assessment and Plan Assessment: 77-year-old male postop day 1 status post transcatheter aortic valve replacement, complicated by 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 Rodríguez Continue Lipitor 80 mg daily Continue Chaitanya-Synephrine currently at 50 mcg/kg/min to keep systolic blood pressure 160-180 CTA/CT brain 03/11/[address] head 03/12 shows acute left parietal infarct PT/OT/Speech, up to chair daily Status post transcatheter aortic valve replacement 03/11 with common iliac access DC maintenance IV fluids. Lasix 20 mg IV times Close neurovascular checks Close urine output monitoring Anticoagulation per Dr. zuleta Continue aspirin Plavix Hold lisinopril, hold hydrochlorothiazide COPD Nebs, Aggressive pulmonary toilet. EzPAP, Acapella Wean FiO2 for goal SPO2 greater than 90% Out of bed per PT Hypertension Goal systolic blood pressure 160- 180 Hold home antihypertensives (lisinopril and hydrochlorothiazide) Hyperlipidemia Restart home statin via NGT Diabetes Sliding-scale insulin Coronary artery disease Aspirin, plavix, Lipitor Holding JIAN inhibitor and hydrochlorothiazide Had beta-blockers when appropriate GERD Home h2 carson Did not pass swallow eval. NG tube inserted start tube feeding with Glucerna SCDs Level 3. Currently critically ill with acute left MCA stroke with aphasia and dysphagia. Patient is at high risk for acute decompensation and also risk for cerebral edema and midline shift. Continue ICU care Huma Heard MD March 13, 2018 08:01
[2018-03-13 08:18] LABS: AUTOMATED NEUTROPHIL # 7.6 TH/MM3 (1.8-7.7); BASOPHIL % 0.4 % (0.0-2.0); EOSINOPHIL # 0.6 TH/MM3 (0-0.4); HEMATOCRIT 24.9 % (39.0-51.0); HEMOGLOBIN 8.7 GM/DL (13.0-17.0); LYMPH % 11.1 % (9.0-44.0); LYMPHOCYTE # 1.1 TH/MM3 (1.0-4.8); MEAN CELL VOLUME 89.4 FL (80.0-100.0); MEAN CORPUSCULAR HEMOGLOBIN 31.1 PG (27.0-34.0); MEAN CORPUSCULAR HGB CONC 34.8 % (32.0-36.0); MEAN PLATELET VOLUME 8.6 FL (7.0-11.0); MONOCYTE # 0.8 TH/MM3 (0-0.9); NEUT % 74.5 % (16.0-70.0); PLATELET COUNT 172 TH/MM3 (150-450); RED BLOOD COUNT 2.79 MIL/MM3 (4.50-5.90); RED CELL DISTRIBUTION WIDTH 14.3 % (11.6-17.2); WHITE BLOOD COUNT 10.2 TH/MM3 (4.0-11.0)
[2018-03-13] MEDS: FAMOTIDINE 20 MG TAB PO SCH ×2 (08:24→21:00)
[2018-03-13] MEDS: DOCUSATE SODIUM 100 MG CAP PO SCH ×2 (08:24→21:00)
[2018-03-13] MEDS: ATORVASTATIN 80 MG TAB PO SCH (08:25)
[2018-03-13] MEDS: BUDESONIDE-FORMOTEROL 160/4.5 MCG INHALER INH SCH ×2 (08:25→21:00)
[2018-03-13] MEDS: CLOPIDOGREL 75 MG TAB PO SCH (08:25)
[2018-03-13 08:33] LABS: ALBUMIN 2.3 GM/DL (3.4-5.0); ALT (GPT) 15 U/L (12-78); AST (GOT) 18 U/L (15-37); BLOOD UREA NITROGEN 16 MG/DL (7-18); CALCIUM 8.1 MG/DL (8.5-10.1); CHLORIDE 107 MEQ/L (98-107); GLOMERULAR FILTRATION RATE 65 ML/MIN (>89); GLUCOSE,RANDOM 131 MG/DL (74-106); MAGNESIUM 1.6 MG/DL (1.5-2.5); PHOSPHORUS 2.1 MG/DL (2.5-4.9); SODIUM (NA) 143 MEQ/L (136-145)
[2018-03-13 08:36] LABS: ALKALINE PHOSPHATASE 103 U/L (45-117); TOTAL BILIRUBIN ADULT 0.5 MG/DL (0.2-1.0); TOTAL PROTEIN 5.2 GM/DL (6.4-8.2)
[2018-03-13] MEDS: METOPROLOL TARTRATE 25 MG TAB PO SCH (08:50)
[2018-03-13] MEDS: ASPIRIN 81 MG CHEW TAB PO SCH (08:57)
[2018-03-13] MEDS: ACETAMINOPHEN 1000 MG/100 ML 100 ML IV PRN (08:58)
[2018-03-13] MEDS: BENEPROTEIN POWDER 1 PACK G-TUBE SCH ×3 (09:00→17:50)
[2018-03-13] MEDS ORDERED: FUROSEMIDE 40 MG/4 ML VIAL IV PUSH ONE (09:00)
--- NOTE | 2018-03-13 14:41 | ECHRPT ---
Indication: CONCLUSIONS Severe aortic valve stenosis. s/p transcatheter aortic valve stenosis BP: / HR: Rhythm: MEASUREMENTS (Male / Female) Normal Values Technical Quality: 2D ECHO LVOT Diameter 1.8 cm DOPPLER AV Peak Velocity 261.5 cm/s AI Pressure Half Time 245.0 ms AV Peak Gradient 27.4 mmHg LVOT Peak Velocity 70.1 cm/s AV Mean Gradient 14.0 mmHg LVOT Peak Gradient 2.0 mmHg AV Velocity Time Integral 58.8 cm LVOT Velocity Time Integr 14.1 cm AI Peak Velocity 205.0 cm/s AV Area Cont Eq vti 0.6 cm AI Peak Gradient 16.8 mmHg AV Area Cont Eq pk 0.7 cm Medications Complications Proc. Components Ty Alberto MD, FACC (Electronically Signed) Final Date:13 Mar 2018 14:40
[2018-03-13] MEDS: ACETAMINOPHEN/HYDROcodone 325 MG/5 MG TAB PO PRN (17:49)
[2018-03-14] VITALS (7 sets, daily range): BP systolic 129–159; BP diastolic 8–72; PULSE 87–106; RESP 16–22; TEMP 97.7–99.6; O2SAT 94–100
[2018-03-14] MEDS: ACETAMINOPHEN 1000 MG/100 ML 100 ML IV PRN ×3 (00:30→21:40)
[2018-03-14] MEDS: INSULIN NovoLIN REGULAR SUPPLEMENTAL SCALE SQ SCH ×4 (03:00→21:00)
[2018-03-14 04:28] LABS: AUTOMATED NEUTROPHIL # 5.1 TH/MM3 (1.8-7.7); BASOPHIL % 0.3 % (0.0-2.0); EOSINOPHIL # 0.4 TH/MM3 (0-0.4); EOSINOPHIL % 5.6 % (0.0-4.0); HEMATOCRIT 24.1 % (39.0-51.0); HEMOGLOBIN 8.3 GM/DL (13.0-17.0); LYMPH % 13.1 % (9.0-44.0); LYMPHOCYTE # 0.9 TH/MM3 (1.0-4.8); MEAN CELL VOLUME 89.6 FL (80.0-100.0); MEAN CORPUSCULAR HEMOGLOBIN 30.8 PG (27.0-34.0); MEAN CORPUSCULAR HGB CONC 34.3 % (32.0-36.0); MEAN PLATELET VOLUME 9.3 FL (7.0-11.0); MONO % 7.6 % (0.0-8.0); MONOCYTE # 0.5 TH/MM3 (0-0.9); NEUT % 73.4 % (16.0-70.0); PLATELET COUNT 147 TH/MM3 (150-450); RED BLOOD COUNT 2.69 MIL/MM3 (4.50-5.90); RED CELL DISTRIBUTION WIDTH 14.2 % (11.6-17.2)
[2018-03-14] MEDS: RESP: ALBUTEROL 2.5 MG/IPRATROPIUM 0.5 MG NEB (SCH) INH ×4 (04:38→21:18)
[2018-03-14 04:56] LABS: ALBUMIN 2.2 GM/DL (3.4-5.0); ALT (GPT) 18 U/L (12-78); AST (GOT) 19 U/L (15-37); BICARBONATE 29.8 MEQ/L (21.0-32.0); BLOOD UREA NITROGEN 21 MG/DL (7-18); CALCIUM 8.3 MG/DL (8.5-10.1); CHLORIDE 105 MEQ/L (98-107); CREATININE 1.09 MG/DL (0.60-1.30); GLOMERULAR FILTRATION RATE 66 ML/MIN (>89); GLUCOSE,RANDOM 159 MG/DL (74-106); MAGNESIUM 1.9 MG/DL (1.5-2.5); PHOSPHORUS 2.5 MG/DL (2.5-4.9); SODIUM (NA) 143 MEQ/L (136-145)
[2018-03-14 04:58] LABS: ALKALINE PHOSPHATASE 147 U/L (45-117); TOTAL BILIRUBIN ADULT 0.6 MG/DL (0.2-1.0); TOTAL PROTEIN 5.4 GM/DL (6.4-8.2)
--- NOTE | 2018-03-14 05:17 | RADRPT ---
EXAM DATE/TIME: 03/14/2018 03:21 [facility] COMPARISON: CHEST SINGLE AP, March 13, 2018, 6:46. INDICATIONS : Shortness of breath, possible pulmonary disease. MEDICAL HISTORY : Cardiovascular disease. Hypertension Chronic obstructive pulmonary disease. Diabetes SURGICAL HISTORY : TAVR ENCOUNTER: Subsequent ACUITY: 2 days PAIN SCORE: Non-responsive. LOCATION: Bilateral chest FINDINGS: Nasogastric tube descends to the stomach. Mild hazy bibasilar parenchymal opacities are grossly uncha nged. Cardiac contours are stable. Evidence of previous sternotomy and aortic valve or placement. CONCLUSION: No significant change Félix Guido MD on March 14, 2018 at 5:14 Board Certified Radiologist. This report was verified electronically.
[2018-03-14] MEDS: BENEPROTEIN POWDER 1 PACK G-TUBE SCH ×3 (08:05→17:57)
[2018-03-14] MEDS: FAMOTIDINE 20 MG TAB PO SCH ×2 (08:06→21:39)
--- NOTE | 2018-03-14 10:16 | HHI.PR ---
Subjective Remarks In bed says he feels uncomfortable. With weakness mostly in his right hand and right facial droop. Speech is the same not improved per at bedside. Patient was able to ambulate with physical therapy today. He feels very tired at this time. No new motor deficit or sensory deficit. Objective Vitals Vital Signs Date Time Temp Pulse Resp B/P (MAP) Pulse Ox O2 Delivery O2 Flow Rate FiO2 03/14/18 08:27 95 Nasal Cannula 1.00 03/14/18 08:00 95 Nasal Cannula 1.00 03/14/18 08:00 87 03/14/18 08:00 98.0 92 16 131/64 (86) 95 03/14/18 03:00 88 03/14/18 03:00 94 Room Air 03/14/18 03:00 99.6 97 18 129/51 (77) 94 03/14/18 01:00 18 03/13/18 23:00 99.6 97 22 130/50 (76) 92 03/13/18 23:00 92 Room Air 03/13/18 23:00 97 03/13/18 22:14 94 21 03/13/18 19:00 99.7 99 18 130/50 (76) 95 03/13/18 19:00 95 Room Air 03/13/18 19:00 99 03/13/18 18:50 18 03/13/18 17:31 108 145/62 03/13/18 16:00 94 Room Air 03/13/18 16:00 104 03/13/18 16:00 97.9 4 16 148/63 (91) 94 03/13/18 11:00 98.2 97 16 120/65 (83) 96 03/13/18 11:00 96 Room Air 03/13/18 11:00 97 I/O 03/13/18 03/13/18 03/13/18 03/14/18 03/14/18 03/14/18 07:00 15:00 23:00 07:00 15:00 23:00 Intake Total 1243 ml 200 ml 977 ml 541 ml Output Total 1200 ml 2150 ml 700 ml Balance 43 ml 200 ml -1173 ml -159 ml Intake Oral 0 ml 0 ml IV Total 1183 ml 200 ml 977 ml Tube Feeding 481 ml Tube Irrigant 60 ml 60 ml Output Urine Total 1200 ml 2150 ml 700 ml Gastric Drainage Total 0 ml 0 ml # Bowel Movements 0 0 0 Result Diagram: 03/14/18 0252 03/14/18 0252 Imaging Last Impressions Chest X-Ray 03/14/18 0600 Signed Impressions: Service Date/Time: Wednesday, March 14, 2018 03:21 - CONCLUSION: No significant change Félix Guido MD Head CT 03/12/18 0000 Signed Impressions: Service Date/Time: March 16:35 - CONCLUSION: Interval development of a 3.5 cm hypodensity in the left parietal lobe suspicious for acute nonhemorrhagic infarction. Britton York MD Neck CTA 03/11/18 0000 Signed Impressions: Service Date/Time: Sunday, March 11, 2018 14:53 - CONCLUSION: 1. Atherosclerotic plaquing at the bifurcations with hard and soft plaque present. No hemodynamically significant lesion identified. 2. CTA of the brain is pending. This examination was reviewed with Dr. Maynard at approximately 1500 hrs. Primitivo Li MD Head CTA 03/11/18 0000 Signed Impressions: Service Date/Time: Sunday, March 11, 2018 14:53 - CONCLUSION: Unremarkable CTA of the brain. Renny Norris MD Objective Remarks GENERAL: Elderly male, lying in bed, significant expressive aphasia, facial droop HEENT: Normocephalic. Atraumatic. Pupils equal, round, reactive, prominent right facial droop NECK: Trachea is midline. There is no JVD. CHEST: Equal chest rise. Nasal cannula oxygen. CARDIOVASCULAR: Normal rate, regular rhythm. Sinus by telemetry. Transvenous pacer removed ABDOMEN: Soft, nontender, nondistended. No guarding. MUSCULOSKELETAL: Pulses 2+. No peripheral edema. Bilateral groin sites with mild ecchymosis NEUROLOGICAL: Patient is alert awake significant expressive aphasia and right facial droop. Motor strength 5 out of 5 on the left side 4 out of 5 on the right side. Expressive aphasia slightly improved he seems to be able to state his name, even though speech is garbled A/P Assessment and Plan Assessment: 77-year-old male postop day 1 status post transcatheter aortic valve replacement, complicated by 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 Rodríguez Continue Lipitor 80 mg daily DC Chaitanya-Synephrine drip Labetalol or hydralazine IV prn if SBP > 180 CTA/CT brain 03/11/[address] head 03/12 shows acute left parietal infarct PT/OT/Speech, up to chair daily Status post transcatheter aortic valve replacement 03/11 with common iliac access DC maintenance IV fluids. Lasix 20 mg IV times Close neurovascular checks Close urine output monitoring Anticoagulation per Dr. zuleta Continue aspirin Plavix Hold lisinopril, hold hydrochlorothiazide COPD Nebs, Aggressive pulmonary toilet. EzPAP, Acapella Wean FiO2 for goal SPO2 greater than 90% Out of bed per PT Hypertension Goal systolic blood pressure 160- 180 Hold home antihypertensives (lisinopril and hydrochlorothiazide) Hyperlipidemia Restart home statin via NGT Diabetes Sliding-scale insulin Coronary artery disease Aspirin, plavix, Lipitor Holding JIAN inhibitor and hydrochlorothiazide Had beta-blockers when appropriate GERD Home h2 carson Did not pass swallow eval. NG tube inserted start tube feeding with Glucerna SCDs With acute left MCA stroke with aphasia and dysphagia. Patient is at risk for acute decompensation and also risk for cerebral edema and midline shift. S/p TAVR with stroke thereafter Lea Nunez MD March 14, 2018 10:16
[2018-03-14] MEDS ORDERED: hydrALAZINE HCL 20 MG/ML VIAL IV PUSH PRN (10:30)
[2018-03-14] MEDS ORDERED: LABETALOL HCL 100 MG/20 ML VIAL IV PUSH PRN (10:30)
[2018-03-14] MEDS: BUDESONIDE-FORMOTEROL 160/4.5 MCG INHALER INH SCH ×2 (11:10→21:40)
[2018-03-14] MEDS: FUROSEMIDE 40 MG/4 ML VIAL IV PUSH SCH (11:12)
[2018-03-14] MEDS: CLOPIDOGREL 75 MG TAB PO SCH (11:12)
[2018-03-14] MEDS: DOCUSATE SODIUM 100 MG CAP PO SCH ×2 (11:12→21:39)
[2018-03-14] MEDS: ASPIRIN 81 MG CHEW TAB PO SCH (11:14)
--- NOTE | 2018-03-14 13:50 | PD.CARD.PN ---
Subjective Subjective Remarks at bedside. He is resting comfortable. Objective Medications Current Medications Medications (Trade) Dose Ordered Sig/Yuki Route Start Time Stop Time Status Last Admin (Duoneb Neb) 1 ampule Q6HR NEB INH 03/11/18 16:00 03/14/18 08:25 (Duoneb Neb) 1 ampule Q2HR NEB PRN INH 03/11/18 14:00 Potassium Chloride 100 ml @ 50 mls/hr Q2H PRN IV 03/11/18 14:00 Potassium Chloride 100 ml @ 50 mls/hr Q2H PRN IV 03/11/18 14:00 (K-Lyte Cl Eff) 50 meq UNSCH PRN PO 03/11/18 14:00 03/14/18 08:05 Potassium Chloride 100 ml @ 25 mls/hr UNSCH PRN IV 03/11/18 14:00 Potassium Chloride 100 ml @ 50 mls/hr Q2H PRN IV 03/11/18 14:00 Magnesium Sulfate 4 gm/Sodium Chloride 100 ml @ 50 mls/hr UNSCH PRN IV 03/11/18 14:00 (Mag-Ox) 800 mg UNSCH PRN PO 03/11/18 14:00 Magnesium Sulfate 2 gm/Sodium Chloride 100 ml @ 50 mls/hr UNSCH PRN IV 03/11/18 14:00 03/13/18 11:29 (K-Phos) 2,000 mg Q4H PRN PO 03/11/18 14:00 Sodium Phosphate 30 mmol/Sodium Chloride 250 ml @ 42 mls/hr UNSCH PRN IV 03/11/18 14:00 03/13/18 11:30 (K-Phos) 2,000 mg UNSCH PRN PO/TUBE 03/11/18 14:00 Potassium Phosphate 30 mmol/ Sodium Chloride 260 ml @ 42 mls/hr UNSCH PRN IV 03/11/18 14:00 (Symbicort 160-4.5 Mcg Inh) 2 puff Q12HR INH 03/11/18 21:00 03/14/18 11:10 (Colace) 100 mg BID PO 03/11/18 21:00 03/14/18 11:12 (Pepcid) 20 mg BID PO 03/11/18 21:00 03/14/18 08:06 (Lipitor) 80 mg DAILY PO 03/12/18 09:00 03/13/18 08:25 (NovoLIN R SUPPLEMENTAL SCALE) 1 ACHS AND 3AM SQ 03/11/18 17:00 03/14/18 11:10 (Aspirin Chew) 81 mg DAILY PO 03/12/18 09:00 03/14/18 11:14 (Plavix) 75 mg DAILY PO 03/12/18 09:00 03/14/18 11:12 (D50w (Vial) Inj) 50 ml UNSCH PRN IV PUSH 03/11/18 14:30 (Glucagon Inj) 1 mg UNSCH PRN OTHER 03/11/18 14:30 Acetaminophen 100 ml @ 400 mls/hr Q6H PRN IV 03/11/18 16:30 03/14/18 00:30 (Beneprotein Powder) 1 pack TID G-TUBE 03/13/18 09:00 03/14/18 11:16 (Lasix Inj) 40 mg DAILY IV PUSH 03/14/18 09:00 03/14/18 11:12 ([place] 5-325 Mg) 1 tab Q4H PRN PO 03/13/18 17:15 03/13/18 17:49 (KCl) 20 meq DAILY PO 03/15/18 09:00 (Trandate Inj) 10 mg Q4H PRN IV PUSH 03/14/18 10:30 (Apresoline Inj) 20 mg Q4H PRN IV PUSH 03/14/18 10:30 Vital Signs / I&O Vital Signs Date Time Temp Pulse Resp B/P (MAP) Pulse Ox O2 Delivery O2 Flow Rate FiO2 03/14/18 11:00 103 03/14/18 11:00 98.0 92 16 131/72 (91) 95 03/14/18 11:00 98 Nasal Cannula 3.00 03/14/18 08:27 95 Nasal Cannula 1.00 03/14/18 08:00 95 Nasal Cannula 1.00 03/14/18 08:00 87 03/14/18 08:00 98.0 92 16 131/64 (86) 95 03/14/18 03:00 88 03/14/18 03:00 94 Room Air 03/14/18 03:00 99.6 97 18 129/51 (77) 94 03/14/18 01:00 18 03/13/18 23:00 99.6 97 22 130/50 (76) 92 03/13/18 23:00 92 Room Air 03/13/18 23:00 97 03/13/18 22:14 94 21 03/13/18 19:00 99.7 99 18 130/50 (76) 95 03/13/18 19:00 95 Room Air 03/13/18 19:00 99 03/13/18 18:50 18 03/13/18 17:31 108 145/62 03/13/18 16:00 94 Room Air 03/13/18 16:00 104 03/13/18 16:00 97.9 4 16 148/63 (91) 94 I/O 03/13/18 03/13/18 03/13/18 03/14/18 03/14/18 03/14/18 07:00 15:00 23:00 07:00 15:00 23:00 Intake Total 1243 ml 200 ml 977 ml 541 ml Output Total 1200 ml 2150 ml 700 ml Balance 43 ml 200 ml -1173 ml -159 ml Intake Oral 0 ml 0 ml IV Total 1183 ml 200 ml 977 ml Tube Feeding 481 ml Tube Irrigant 60 ml 60 ml Output Urine Total 1200 ml 2150 ml 700 ml Gastric Drainage Total 0 ml 0 ml # Bowel Movements 0 0 0 Physical Exam GENERAL: Well-developed well-nourished. In no acute distress. NECK: No carotid bruits. No JVD. CARDIOVASCULAR: Regular rate and rhythm. No murmur appreciated. RESPIRATORY: No accessory muscle use. Diminished breath sounds in the bases. MUSCULOSKELETAL: No clubbing or cyanosis. No edema. NEUROLOGICAL: Awake and alert. Expressive aphasia speech. Right-sided hemiparesis.Left facial droop. Laboratory Laboratory Tests Test 03/14/18 02:52 White Blood Count 7.0 TH/MM3 Red Blood Count 2.69 MIL/MM3 Hemoglobin 8.3 GM/DL Hematocrit 24.1 % Mean Corpuscular Volume 89.6 FL Mean Corpuscular Hemoglobin 30.8 PG Mean Corpuscular Hemoglobin Concent 34.3 % Red Cell Distribution Width 14.2 % Platelet Count 147 TH/MM3 Mean Platelet Volume 9.3 FL Neutrophils (%) (Auto) 73.4 % Lymphocytes (%) (Auto) 13.1 % Monocytes (%) (Auto) 7.6 % Eosinophils (%) (Auto) 5.6 % Basophils (%) (Auto) 0.3 % Neutrophils # (Auto) 5.1 TH/MM3 Lymphocytes # (Auto) 0.9 TH/MM3 Monocytes # (Auto) 0.5 TH/MM3 Eosinophils # (Auto) 0.4 TH/MM3 Basophils # (Auto) 0.0 TH/MM3 CBC Comment DIFF FINAL Differential Comment Blood Urea Nitrogen 21 MG/DL Creatinine 1.09 MG/DL Random Glucose 159 MG/DL Total Protein 5.4 GM/DL Albumin 2.2 GM/DL Calcium Level 8.3 MG/DL Phosphorus Level 2.5 MG/DL Magnesium Level 1.9 MG/DL Alkaline Phosphatase 147 U/L Aspartate Amino Transf (AST/SGOT) 19 U/L Alanine Aminotransferase (ALT/SGPT) 18 U/L Total Bilirubin 0.6 MG/DL Sodium Level 143 MEQ/L Potassium Level 3.5 MEQ/L Chloride Level 105 MEQ/L Carbon Dioxide Level 29.8 MEQ/L Anion Gap 8 MEQ/L Estimat Glomerular Filtration Rate 66 ML/MIN Imaging Last 24 hours Impressions Chest X-Ray 03/14/18 0600 Signed Impressions: Service Date/Time: Wednesday, March 14, 2018 03:21 - CONCLUSION: No significant change Félix Guido MD Assessment and Plan Problem List: (1) S/P TAVR (transcatheter aortic valve replacement) ICD Codes: Z95.2 - Presence of prosthetic heart valve Plan: on ASA, plavix (2) CVA (cerebral vascular accident) ICD Codes: I63.9 - Cerebral infarction, unspecified Plan: PT/OT/ speech therapy neuro following (3) CAD (coronary artery disease) ICD Codes: I25.10 - Atherosclerotic heart disease of [place] coronary artery without angina pectoris (4) COPD (chronic obstructive pulmonary disease) ICD Codes: J44.9 - Chronic obstructive pulmonary disease, unspecified (5) Diastolic CHF ICD Codes: I50.30 - Unspecified diastolic (congestive) heart failure (6) Aortic stenosis ICD Codes: I35.0 - Nonrheumatic aortic (valve) stenosis (7) Median sternotomy Plan: daily wound care Assessment and Plan Severe aortic valve stenosis - s/p TAVR. post procedure DELMI hemodynamics:JANNA 1.2 cm2, Mean gradient 4 mmHg, Peak velocity 2.5 cm/s, mild paravalvular leak. asa plavix Activity per neuro and rehab services Seeing patient for Dr. Alberto this . Wing Glory Cheng MD March 14, 2018 13:50
--- NOTE | 2018-03-14 14:55 | EKG ---
Date Performed: 03/13/2018 Time Performed: 17:39:42 PTAGE: 77 years EKG: Sinus tachycardia Left bundle branch block Low QRS voltages in limb leads When copmpared to previous tracing, left bundlebranch block is new. Clinical corrolation is suggested. Abnormal ECG PREVIOUS TRACING : 03/12/2018 06.02 DOCTOR: Pedro Dave Interpretating Date/Time 03/14/2018 14:54:23
[2018-03-14] MEDS: ATORVASTATIN 80 MG TAB PO SCH (17:56)
[2018-03-15] VITALS (24 sets, daily range): BP systolic 137–154; BP diastolic 64–77; PULSE 62–105; RESP 16–20; TEMP 97.2–98.5; O2SAT 95–100
[2018-03-15] MEDS: INSULIN NovoLIN REGULAR SUPPLEMENTAL SCALE SQ SCH ×5 (03:48→20:52)
[2018-03-15] MEDS: RESP: ALBUTEROL 2.5 MG/IPRATROPIUM 0.5 MG NEB (SCH) INH ×2 (04:27→11:15)
[2018-03-15] MEDS: ACETAMINOPHEN 1000 MG/100 ML 100 ML IV PRN ×3 (07:53→20:49)
[2018-03-15] MEDS: ATORVASTATIN 80 MG TAB PO SCH (08:32)
[2018-03-15] MEDS: DOCUSATE SODIUM 100 MG CAP PO SCH ×2 (08:32→20:51)
[2018-03-15] MEDS: FAMOTIDINE 20 MG TAB PO SCH ×2 (08:32→20:51)
[2018-03-15] MEDS: FUROSEMIDE 40 MG/4 ML VIAL IV PUSH SCH (08:33)
[2018-03-15] MEDS: POTASSIUM CHLORIDE 20 MEQ CONTROLLED RELEASE TAB PO SCH (08:33)
[2018-03-15] MEDS: ASPIRIN 81 MG CHEW TAB PO SCH (08:33)
[2018-03-15] MEDS: CLOPIDOGREL 75 MG TAB PO SCH (08:33)
[2018-03-15] MEDS: BUDESONIDE-FORMOTEROL 160/4.5 MCG INHALER INH SCH ×2 (08:33→20:51)
[2018-03-15] MEDS: BENEPROTEIN POWDER 1 PACK G-TUBE SCH ×3 (08:33→17:07)
[2018-03-15] MEDS: ACETAMINOPHEN/HYDROcodone 325 MG/5 MG TAB PO PRN ×2 (08:34→20:50)
--- NOTE | 2018-03-15 09:03 | HHI.PR ---
Subjective Remarks Was ambulating in the morning with physical therapy. She is improving. Feels very tired denies chest pain or shortness of breath. No new motor deficit. Speech the same not much improvement. Denies any chest pain or shortness of breath, no palpitations. Objective Vitals Vital Signs Date Time Temp Pulse Resp B/P (MAP) Pulse Ox O2 Delivery O2 Flow Rate FiO2 03/15/18 05:00 86 03/15/18 04:00 78 03/15/18 03:30 100 Nasal Cannula 2.00 03/15/18 03:30 98.5 87 20 141/64 (89) 100 03/15/18 03:00 62 03/15/18 02:00 84 03/15/18 01:00 80 03/15/18 00:00 86 03/14/18 23:00 100 Nasal Cannula 2.00 03/14/18 23:00 92 03/14/18 23:00 98.5 94 20 138/63 (88) 100 03/14/18 22:10 22 03/14/18 19:00 96 Nasal Cannula 2.00 03/14/18 19:00 97.7 96 22 159/70 (99) 96 03/14/18 19:00 106 03/14/18 15:00 97 Nasal Cannula 2.00 03/14/18 15:00 101 03/14/18 15:00 98.3 101 16 143/8 (53) 97 03/14/18 11:00 103 03/14/18 11:00 98.0 92 16 131/72 (91) 95 03/14/18 11:00 98 Nasal Cannula 3.00 I/O 03/14/18 03/14/18 03/14/18 03/15/18 03/15/18 03/15/18 07:00 15:00 23:00 07:00 15:00 23:00 Intake Total 541 ml 100 ml 20 ml Output Total 700 ml 1790 ml 430 ml Balance -159 ml -1690 ml -410 ml Intake Oral 0 ml 20 ml IV Total 100 ml Tube Feeding 481 ml Tube Irrigant 60 ml Output Urine Total 700 ml 1790 ml 430 ml Stool Total 0 ml Gastric Drainage Total 0 ml # Bowel Movements 0 0 Result Diagram: 03/14/18 0252 03/14/18 0252 Imaging Last Impressions Chest X-Ray 03/14/18 0600 Signed Impressions: Service Date/Time: Wednesday, March 14, 2018 03:21 - CONCLUSION: No significant change Félix Guido MD Head CT 03/12/18 0000 Signed Impressions: Service Date/Time: March 16:35 - CONCLUSION: Interval development of a 3.5 cm hypodensity in the left parietal lobe suspicious for acute nonhemorrhagic infarction. Britton York MD Neck CTA 03/11/18 0000 Signed Impressions: Service Date/Time: Sunday, March 11, 2018 14:53 - CONCLUSION: 1. Atherosclerotic plaquing at the bifurcations with hard and soft plaque present. No hemodynamically significant lesion identified. 2. CTA of the brain is pending. This examination was reviewed with Dr. Maynard at approximately 1500 hrs. Primitivo Li MD Head CTA 03/11/18 0000 Signed Impressions: Service Date/Time: Sunday, March 11, 2018 14:53 - CONCLUSION: Unremarkable CTA of the brain. Renny Norris MD Objective Remarks GENERAL: Elderly male, lying in bed, significant expressive aphasia, facial droop HEENT: Normocephalic. Atraumatic. Pupils equal, round, reactive, prominent right facial droop NECK: Trachea is midline. There is no JVD. CHEST: Equal chest rise. Nasal cannula oxygen. CARDIOVASCULAR: Normal rate, regular rhythm. Sinus by telemetry. Transvenous pacer removed ABDOMEN: Soft, nontender, nondistended. No guarding. MUSCULOSKELETAL: Pulses 2+. No peripheral edema. Bilateral groin sites with mild ecchymosis NEUROLOGICAL: Patient is alert awake significant expressive aphasia and right facial droop. Motor strength 5 out of 5 on the left side 4 out of 5 on the right side. Expressive aphasia slightly improved he seems to be able to state his name, even though speech is garbled A/P Assessment and Plan 77-year-old male postop day 1 status post transcatheter aortic valve replacement , complicated by 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 Rodríguez Continue Lipitor 80 mg daily DC Chaitanya-Synephrine drip Labetalol or hydralazine IV prn if SBP > 180 CTA/CT brain 03/11/[address] head 03/12 shows acute left parietal infarct PT/OT/Speech, up to chair daily Status post transcatheter aortic valve replacement 03/11 with common iliac access DC maintenance IV fluids. Lasix 20 mg IV times Close neurovascular checks Close urine output monitoring Anticoagulation per Dr. zuleta Continue aspirin Plavix Hold lisinopril, hold hydrochlorothiazide COPD Nebs, Aggressive pulmonary toilet. EzPAP, Acapella Wean FiO2 for goal SPO2 greater than 90% Out of bed per PT Hypertension Goal systolic blood pressure 160- 180 Hold home antihypertensives (lisinopril and hydrochlorothiazide) Hyperlipidemia Restart home statin via NGT Diabetes Sliding-scale insulin Coronary artery disease Aspirin, plavix, Lipitor Holding JIAN inhibitor and hydrochlorothiazide Had beta-blockers when appropriate GERD Home h2 carson Did not pass swallow eval. NG tube inserted start tube feeding with Glucerna SCDs With acute left MCA stroke with aphasia and dysphagia. Patient is at risk for acute decompensation and also risk for cerebral edema and midline shift. S/p TAVR with stroke thereafter DC plan discharge to [facility] rehab when cleared by consultants. Lea Nunez MD March 15, 2018 09:03
[2018-03-15] MEDS: RESP: ALBUTEROL 2.5 MG/IPRATROPIUM 0.5 MG NEB (PRN) INH ×2 (16:43→21:38)
--- NOTE | 2018-03-15 17:31 | PD.CARD.PN ---
Subjective Subjective Remarks at bedside. He is resting comfortable. Was ambulating in the morning with physical therapy. No new motor deficit. Speech the same not much improvement. Denies any chest pain or shortness of breath, no palpitations. Objective Medications Current Medications Medications (Trade) Dose Ordered Sig/Yuki Route Start Time Stop Time Status Last Admin (Duoneb Neb) 1 ampule Q2HR NEB PRN INH 03/11/18 14:00 03/15/18 16:43 Potassium Chloride 100 ml @ 50 mls/hr Q2H PRN IV 03/11/18 14:00 Potassium Chloride 100 ml @ 50 mls/hr Q2H PRN IV 03/11/18 14:00 (K-Lyte Cl Eff) 50 meq UNSCH PRN PO 03/11/18 14:00 03/14/18 08:05 Potassium Chloride 100 ml @ 25 mls/hr UNSCH PRN IV 03/11/18 14:00 Potassium Chloride 100 ml @ 50 mls/hr Q2H PRN IV 03/11/18 14:00 Magnesium Sulfate 4 gm/Sodium Chloride 100 ml @ 50 mls/hr UNSCH PRN IV 03/11/18 14:00 (Mag-Ox) 800 mg UNSCH PRN PO 03/11/18 14:00 Magnesium Sulfate 2 gm/Sodium Chloride 100 ml @ 50 mls/hr UNSCH PRN IV 03/11/18 14:00 03/13/18 11:29 (K-Phos) 2,000 mg Q4H PRN PO 03/11/18 14:00 Sodium Phosphate 30 mmol/Sodium Chloride 250 ml @ 42 mls/hr UNSCH PRN IV 03/11/18 14:00 03/13/18 11:30 (K-Phos) 2,000 mg UNSCH PRN PO/TUBE 03/11/18 14:00 Potassium Phosphate 30 mmol/ Sodium Chloride 260 ml @ 42 mls/hr UNSCH PRN IV 03/11/18 14:00 (Symbicort 160-4.5 Mcg Inh) 2 puff Q12HR INH 03/11/18 21:00 03/15/18 08:33 (Colace) 100 mg BID PO 03/11/18 21:00 03/15/18 08:32 (Pepcid) 20 mg BID PO 03/11/18 21:00 03/15/18 08:32 (Lipitor) 80 mg DAILY PO 03/12/18 09:00 03/15/18 08:32 (NovoLIN R SUPPLEMENTAL SCALE) 1 ACHS AND 3AM SQ 03/11/18 17:00 03/15/18 12:01 (Aspirin Chew) 81 mg DAILY PO 03/12/18 09:00 03/15/18 08:33 (Plavix) 75 mg DAILY PO 03/12/18 09:00 03/15/18 08:33 (D50w (Vial) Inj) 50 ml UNSCH PRN IV PUSH 03/11/18 14:30 (Glucagon Inj) 1 mg UNSCH PRN OTHER 03/11/18 14:30 Acetaminophen 100 ml @ 400 mls/hr Q6H PRN IV 03/11/18 16:30 03/15/18 11:59 (Beneprotein Powder) 1 pack TID G-TUBE 03/13/18 09:00 03/15/18 08:33 (Lasix Inj) 40 mg DAILY IV PUSH 03/14/18 09:00 03/15/18 08:33 ([place] 5-325 Mg) 1 tab Q4H PRN PO 03/13/18 17:15 03/15/18 08:34 (KCl) 20 meq DAILY PO 03/15/18 09:00 03/15/18 08:33 (Trandate Inj) 10 mg Q4H PRN IV PUSH 03/14/18 10:30 (Apresoline Inj) 20 mg Q4H PRN IV PUSH 03/14/18 10:30 Vital Signs / I&O Vital Signs Date Time Temp Pulse Resp B/P (MAP) Pulse Ox O2 Delivery O2 Flow Rate FiO2 03/15/18 17:08 92 03/15/18 16:07 88 03/15/18 15:17 87 03/15/18 15:17 97 Room Air 03/15/18 15:17 97.2 80 18 137/77 (97) 97 03/15/18 14:48 85 03/15/18 13:52 86 03/15/18 12:53 18 03/15/18 12:06 98 03/15/18 11:15 95 Room Air 03/15/18 11:15 91 03/15/18 11:15 96 21 03/15/18 11:15 97.6 105 18 148/67 (94) 95 03/15/18 10:28 94 03/15/18 09:32 18 03/15/18 09:31 102 03/15/18 08:30 83 03/15/18 08:30 96 Room Air 03/15/18 08:30 97.8 96 18 154/67 (96) 96 03/15/18 05:00 86 03/15/18 04:00 78 03/15/18 03:30 100 Nasal Cannula 2.00 03/15/18 03:30 98.5 87 20 141/64 (89) 100 03/15/18 03:00 62 03/15/18 02:00 84 03/15/18 01:00 80 03/15/18 00:00 86 03/14/18 23:00 100 Nasal Cannula 2.00 03/14/18 23:00 92 03/14/18 23:00 98.5 94 20 138/63 (88) 100 03/14/18 19:00 96 Nasal Cannula 2.00 03/14/18 19:00 97.7 96 22 159/70 (99) 96 03/14/18 19:00 106 I/O 03/14/18 03/14/18 03/14/18 03/15/18 03/15/18 03/15/18 07:00 15:00 23:00 07:00 15:00 23:00 Intake Total 541 ml 100 ml 20 ml Output Total 700 ml 1790 ml 430 ml Balance -159 ml -1690 ml -410 ml Intake Oral 0 ml 20 ml IV Total 100 ml Tube Feeding 481 ml Tube Irrigant 60 ml Output Urine Total 700 ml 1790 ml 430 ml Stool Total 0 ml Gastric Drainage Total 0 ml # Bowel Movements 0 0 Physical Exam GENERAL: Well-developed well-nourished. In no acute distress. NECK: No carotid bruits. No JVD. CARDIOVASCULAR: Regular rate and rhythm. No murmur appreciated. RESPIRATORY: No accessory muscle use. Diminished breath sounds in the bases. MUSCULOSKELETAL: No clubbing or cyanosis. No edema. NEUROLOGICAL: Awake and alert. Expressive aphasia speech. Right-sided hemiparesis.Left facial droop. Assessment and Plan Problem List: (1) S/P TAVR (transcatheter aortic valve replacement) ICD Codes: Z95.2 - Presence of prosthetic heart valve (2) CVA (cerebral vascular accident) ICD Codes: I63.9 - Cerebral infarction, unspecified (3) CAD (coronary artery disease) ICD Codes: I25.10 - Atherosclerotic heart disease of [place] coronary artery without angina pectoris (4) COPD (chronic obstructive pulmonary disease) ICD Codes: J44.9 - Chronic obstructive pulmonary disease, unspecified (5) Diastolic CHF ICD Codes: I50.30 - Unspecified diastolic (congestive) heart failure (6) Aortic stenosis ICD Codes: I35.0 - Nonrheumatic aortic (valve) stenosis (7) Median sternotomy Assessment and Plan Severe aortic valve stenosis - s/p TAVR. post procedure DELMI hemodynamics:JANNA 1.2 cm2, Mean gradient 4 mmHg, Peak velocity 2.5 cm/s, mild paravalvular leak. asa plavix Acute CvA post TAVR Activity per neuro and rehab services Seeing patient for Dr. Alberto this weekend. Wing Glory Cheng MD March 15, 2018 17:31
[2018-03-15] MEDS ORDERED: SENNOSIDES 8.6 MG TAB PO PRN (18:45)
[2018-03-15] MEDS ORDERED: MAGNESIUM HYDROXIDE SUSP 30 ML CUP PO PRN (18:45)
[2018-03-15] MEDS ORDERED: NALOXONE HCL 0.4 MG/ML AMP IV PUSH PRN (18:45)
[2018-03-15] MEDS ORDERED: BISACODYL 10 MG SUPP RECTAL PRN (18:45)
[2018-03-15] MEDS ORDERED: LACTULOSE SYRUP 20 GM/30 ML CUP PO PRN (18:45)
[2018-03-15] MEDS: DOCUSATE SODIUM 50 MG/SENNA 8.6 MG TAB PO SCH (20:53)
[2018-03-16] VITALS (27 sets, daily range): BP systolic 137–176; BP diastolic 62–76; PULSE 78–110; RESP 16; TEMP 97.4–98.5; O2SAT 95–98
[2018-03-16] MEDS: INSULIN NovoLIN REGULAR SUPPLEMENTAL SCALE SQ SCH ×5 (03:00→21:00)
--- NOTE | 2018-03-16 07:33 | PD.CARD.PN ---
Subjective Subjective Remarks Still with some expressive aphasia and right-sided weakness. Patient denies any chest pain or shortness of breath. (Wilian Reed) Objective Medications Current Medications Medications (Trade) Dose Ordered Sig/Yuki Route Start Time Stop Time Status Last Admin (Duoneb Neb) 1 ampule Q2HR NEB PRN INH 03/11/18 14:00 03/15/18 21:38 Potassium Chloride 100 ml @ 50 mls/hr Q2H PRN IV 03/11/18 14:00 Potassium Chloride 100 ml @ 50 mls/hr Q2H PRN IV 03/11/18 14:00 (K-Lyte Cl Eff) 50 meq UNSCH PRN PO 03/11/18 14:00 03/14/18 08:05 Potassium Chloride 100 ml @ 25 mls/hr UNSCH PRN IV 03/11/18 14:00 Potassium Chloride 100 ml @ 50 mls/hr Q2H PRN IV 03/11/18 14:00 Magnesium Sulfate 4 gm/Sodium Chloride 100 ml @ 50 mls/hr UNSCH PRN IV 03/11/18 14:00 (Mag-Ox) 800 mg UNSCH PRN PO 03/11/18 14:00 Magnesium Sulfate 2 gm/Sodium Chloride 100 ml @ 50 mls/hr UNSCH PRN IV 03/11/18 14:00 03/13/18 11:29 (K-Phos) 2,000 mg Q4H PRN PO 03/11/18 14:00 Sodium Phosphate 30 mmol/Sodium Chloride 250 ml @ 42 mls/hr UNSCH PRN IV 03/11/18 14:00 03/13/18 11:30 (K-Phos) 2,000 mg UNSCH PRN PO/TUBE 03/11/18 14:00 Potassium Phosphate 30 mmol/ Sodium Chloride 260 ml @ 42 mls/hr UNSCH PRN IV 03/11/18 14:00 (Symbicort 160-4.5 Mcg Inh) 2 puff Q12HR INH 03/11/18 21:00 03/15/18 20:51 (Colace) 100 mg BID PO 03/11/18 21:00 03/15/18 20:51 (Pepcid) 20 mg BID PO 03/11/18 21:00 03/15/18 20:51 (Lipitor) 80 mg DAILY PO 03/12/18 09:00 03/15/18 08:32 (NovoLIN R SUPPLEMENTAL SCALE) 1 ACHS AND 3AM SQ 03/11/18 17:00 03/15/18 12:01 (Aspirin Chew) 81 mg DAILY PO 03/12/18 09:00 03/15/18 08:33 (Plavix) 75 mg DAILY PO 03/12/18 09:00 03/15/18 08:33 (D50w (Vial) Inj) 50 ml UNSCH PRN IV PUSH 03/11/18 14:30 (Glucagon Inj) 1 mg UNSCH PRN OTHER 03/11/18 14:30 Acetaminophen 100 ml @ 400 mls/hr Q6H PRN IV 03/11/18 16:30 03/15/18 20:49 (Beneprotein Powder) 1 pack TID G-TUBE 03/13/18 09:00 03/15/18 08:33 (Lasix Inj) 40 mg DAILY IV PUSH 03/14/18 09:00 03/15/18 08:33 ([place] 5-325 Mg) 1 tab Q4H PRN PO 03/13/18 17:15 03/15/18 20:50 (KCl) 20 meq DAILY PO 03/15/18 09:00 03/15/18 08:33 (Trandate Inj) 10 mg Q4H PRN IV PUSH 03/14/18 10:30 (Apresoline Inj) 20 mg Q4H PRN IV PUSH 03/14/18 10:30 (Narcan Inj) 0.4 mg UNSCH PRN IV PUSH 03/15/18 18:45 (Padmini-Colace) 1 tab BID PO 03/15/18 21:00 (Milk Of Magnesia Liq) 30 ml Q12H PRN PO 03/15/18 18:45 (Senokot) 17.2 mg Q12H PRN PO 03/15/18 18:45 (Dulcolax Supp) 10 mg DAILY PRN RECTAL 03/15/18 18:45 (Lactulose Liq) 30 ml DAILY PRN PO 03/15/18 18:45 Vital Signs / I&O Vital Signs Date Time Temp Pulse Resp B/P (MAP) Pulse Ox O2 Delivery O2 Flow Rate FiO2 03/16/18 06:00 98 03/16/18 05:00 88 03/16/18 04:00 81 03/16/18 03:25 96 Room Air 03/16/18 03:00 97.8 81 16 139/62 (87) 97 03/16/18 03:00 80 03/16/18 02:00 80 03/16/18 01:00 87 03/16/18 00:00 98.2 79 16 137/63 (87) 95 03/16/18 00:00 78 03/15/18 23:20 96 Room Air 03/15/18 23:00 63 03/15/18 22:00 84 03/15/18 21:12 95 Room Air 03/15/18 21:10 21 03/15/18 21:00 94 03/15/18 20:30 98.5 94 16 153/71 (98) 95 03/15/18 20:00 90 03/15/18 19:00 89 03/15/18 18:02 90 03/15/18 17:08 92 03/15/18 16:07 88 03/15/18 15:17 87 03/15/18 15:17 97 Room Air 03/15/18 15:17 97.2 80 18 137/77 (97) 97 03/15/18 14:48 85 03/15/18 13:52 86 03/15/18 12:53 18 03/15/18 12:06 98 03/15/18 11:15 95 Room Air 03/15/18 11:15 91 03/15/18 11:15 96 21 03/15/18 11:15 97.6 105 18 148/67 (94) 95 03/15/18 10:28 94 03/15/18 09:32 18 03/15/18 09:31 102 03/15/18 08:30 83 03/15/18 08:30 96 Room Air 03/15/18 08:30 97.8 96 18 154/67 (96) 96 I/O 03/15/1803/15/18 03/15/18 03/16/18 03/16/18 03/16/18 07:00 15:00 23:00 07:00 15:00 23:00 Intake Total 20 ml 240 ml 100 ml Output Total 430 ml 1100 ml 320 ml Balance -410 ml -860 ml -220 ml Intake Oral 20 ml 240 ml 100 ml Output Urine Total 430 ml 1100 ml 320 ml Stool Total 0 ml # Bowel Movements 0 Physical Exam GENERAL: Well-developed well-nourished. In no acute distress. NECK: No carotid bruits. No JVD. CARDIOVASCULAR: Regular rate and rhythm. No murmur appreciated. RESPIRATORY: No accessory muscle use. Diminished breath sounds in the bases. MUSCULOSKELETAL: No clubbing or cyanosis. No edema. NEUROLOGICAL: Awake and alert. Expressive aphasia. Right-sided hemiparesis. SKIN: Left groin ecchymosis, no swelling. Imaging Last Impressions Chest X-Ray 03/14/18 0600 Signed Impressions: Service Date/Time: Wednesday, March 14, 2018 03:21 - CONCLUSION: No significant change Félix Guido MD Head CT 03/12/18 0000 Signed Impressions: Service Date/Time: March 16:35 - CONCLUSION: Interval development of a 3.5 cm hypodensity in the left parietal lobe suspicious for acute nonhemorrhagic infarction. Britton York MD Neck CTA 03/11/18 0000 Signed Impressions: Service Date/Time: Sunday, March 11, 2018 14:53 - CONCLUSION: 1. Atherosclerotic plaquing at the bifurcations with hard and soft plaque present. No hemodynamically significant lesion identified. 2. CTA of the brain is pending. This examination was reviewed with Dr. Maynard at approximately 1500 hrs. Primitivo Li MD Head CTA 03/11/18 0000 Signed Impressions: Service Date/Time: Sunday, March 11, 2018 14:53 - CONCLUSION: Unremarkable CTA of the brain. Renny Norris MD (Wilian Reed) Assessment and Plan Problem List: (1) S/P TAVR (transcatheter aortic valve replacement) ICD Codes: Z95.2 - Presence of prosthetic heart valve (2) CVA (cerebral vascular accident) ICD Codes: I63.9 - Cerebral infarction, unspecified (3) CAD (coronary artery disease) ICD Codes: I25.10 - Atherosclerotic heart disease of [place] coronary artery without angina pectoris (4) COPD (chronic obstructive pulmonary disease) ICD Codes: J44.9 - Chronic obstructive pulmonary disease, unspecified (5) Diastolic CHF ICD Codes: I50.30 - Unspecified diastolic (congestive) heart failure (6) Aortic stenosis ICD Codes: I35.0 - Nonrheumatic aortic (valve) stenosis (7) Median sternotomy Assessment and Plan Severe aortic valve stenosis - s/p TAVR: Post procedure DELMI looks good. Continue ASA and Plavix, check CBC. Diastolic CHF: Continues to have negative fluid balance with IV Lasix, check BMP. CVA: Appreciate neuro and medical assistance. PT/OT/ST. Probable SNF, possibly [facility], consult. (Wilian Reed) Assessment and Plan ambulate PT/OT Rehab DC planning change lasix to PO (Ty Alberto MD) Wilian Reed March 16, 2018 07:33 Ty Alberto MD March 16, 2018 10:43
[2018-03-16] MEDS: CLOPIDOGREL 75 MG TAB PO SCH (08:40)
[2018-03-16] MEDS: FAMOTIDINE 20 MG TAB PO SCH ×2 (08:40→21:00)
[2018-03-16] MEDS: POTASSIUM CHLORIDE 20 MEQ CONTROLLED RELEASE TAB PO SCH (08:40)
[2018-03-16] MEDS: DOCUSATE SODIUM 50 MG/SENNA 8.6 MG TAB PO SCH ×2 (08:40→21:00)
[2018-03-16] MEDS: FUROSEMIDE 40 MG/4 ML VIAL IV PUSH SCH (08:41)
[2018-03-16] MEDS: BUDESONIDE-FORMOTEROL 160/4.5 MCG INHALER INH SCH ×2 (08:41→21:00)
[2018-03-16] MEDS: BENEPROTEIN POWDER 1 PACK G-TUBE SCH ×3 (08:41→16:59)
[2018-03-16] MEDS: ASPIRIN 81 MG CHEW TAB PO SCH (08:41)
[2018-03-16] MEDS: ATORVASTATIN 80 MG TAB PO SCH (08:41)
[2018-03-16] MEDS: DOCUSATE SODIUM 100 MG CAP PO SCH ×2 (08:42→21:00)
--- NOTE | 2018-03-16 09:01 | HHI.PR ---
Subjective Remarks Feels better. Says he is eating well. No problem with swallowing. NG tube was removed yesterday and he does not have any pain with swallowing. No fever or chills. No nausea vomiting no diarrhea or constipation. Objective Vitals Vital Signs Date Time Temp Pulse Resp B/P (MAP) Pulse Ox O2 Delivery O2 Flow Rate FiO2 03/16/18 08:00 102 03/16/18 07:32 97.9 103 16 157/72 (100) 97 03/16/18 07:32 97 Room Air 03/16/18 07:00 87 03/16/18 06:00 98 03/16/18 05:00 88 03/16/18 04:00 81 03/16/18 03:25 96 Room Air 03/16/18 03:00 97.8 81 16 139/62 (87) 97 03/16/18 03:00 80 03/16/18 02:00 80 03/16/18 01:00 87 03/16/18 00:00 98.2 79 16 137/63 (87) 95 03/16/18 00:00 78 03/15/18 23:20 96 Room Air 03/15/18 23:00 63 03/15/18 22:00 84 03/15/18 21:12 95 Room Air 03/15/18 21:10 21 03/15/18 21:00 94 03/15/18 20:30 98.5 94 16 153/71 (98) 95 03/15/18 20:00 90 03/15/18 19:00 89 03/15/18 18:02 90 03/15/18 17:08 92 03/15/18 16:07 88 03/15/18 15:17 87 03/15/18 15:17 97 Room Air 03/15/18 15:17 97.2 80 18 137/77 (97) 97 03/15/18 14:48 85 03/15/18 13:52 86 03/15/18 12:53 18 03/15/18 12:06 98 03/15/18 11:15 95 Room Air 03/15/18 11:15 91 03/15/18 11:15 96 21 03/15/18 11:15 97.6 105 18 148/67 (94) 95 03/15/18 10:28 94 03/15/18 09:32 18 03/15/18 09:31 102 I/O 03/15/18 03/15/18 03/15/18 03/16/18 03/16/18 03/16/18 07:00 15:00 23:00 07:00 15:00 23:00 Intake Total 20 ml 240 ml 100 ml Output Total 430 ml 1100 ml 320 ml Balance -410 ml -860 ml -220 ml Intake Oral 20 ml 240 ml 100 ml Output Urine Total 430 ml 1100 ml 320 ml Stool Total 0 ml # Bowel Movements 0 Result Diagram: 03/14/18 0252 03/14/18 0252 Imaging Last Impressions Chest X-Ray 03/14/18 0600 Signed Impressions: Service Date/Time: Wednesday, March 14, 2018 03:21 - CONCLUSION: No significant change Félix Guido MD Head CT 03/12/18 0000 Signed Impressions: Service Date/Time: March 16:35 - CONCLUSION: Interval development of a 3.5 cm hypodensity in the left parietal lobe suspicious for acute nonhemorrhagic infarction. Britton York MD Neck CTA 03/11/18 0000 Signed Impressions: Service Date/Time: Sunday, March 11, 2018 14:53 - CONCLUSION: 1. Atherosclerotic plaquing at the bifurcations with hard and soft plaque present. No hemodynamically significant lesion identified. 2. CTA of the brain is pending. This examination was reviewed with Dr. Maynard at approximately 1500 hrs. Primitivo Li MD Head CTA 03/11/18 0000 Signed Impressions: Service Date/Time: Sunday, March 11, 2018 14:53 - CONCLUSION: Unremarkable CTA of the brain. Renny Norris MD Objective Remarks GENERAL: Elderly male, lying in bed, significant expressive aphasia, facial droop HEENT: Normocephalic. Atraumatic. Pupils equal, round, reactive, prominent right facial droop NECK: Trachea is midline. There is no JVD. CHEST: Equal chest rise. Nasal cannula oxygen. CARDIOVASCULAR: Normal rate, regular rhythm. Sinus by telemetry. Transvenous pacer removed ABDOMEN: Soft, nontender, nondistended. No guarding. MUSCULOSKELETAL: Pulses 2+. No peripheral edema. Bilateral groin sites with mild ecchymosis NEUROLOGICAL: Patient is alert awake significant expressive aphasia and right facial droop. Motor strength 5 out of 5 on the left side 4 out of 5 on the right side. Expressive aphasia slightly improved he seems to be able to state his name, even though speech is garbled A/P Assessment and Plan 77-year-old male postop day 1 status post transcatheter aortic valve replacement , complicated by 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 Rodríguez Continue Lipitor 80 mg daily DC Chaitanya-Synephrine drip Labetalol or hydralazine IV prn if SBP > 180 CTA/CT brain 03/11/[address] head 03/12 shows acute left parietal infarct PT/OT/Speech, up to chair daily Status post transcatheter aortic valve replacement 03/11 with common iliac access DC maintenance IV fluids. Lasix 20 mg IV times Close neurovascular checks Close urine output monitoring Anticoagulation per Dr. zuleta Continue aspirin Plavix Hold lisinopril, hold hydrochlorothiazide COPD Nebs, Aggressive pulmonary toilet. EzPAP, Acapella Wean FiO2 for goal SPO2 greater than 90% Out of bed per PT Hypertension Goal systolic blood pressure 160- 180 Hold home antihypertensives (lisinopril and hydrochlorothiazide) Hyperlipidemia Restart home statin via NGT Diabetes Sliding-scale insulin Coronary artery disease Aspirin, plavix, Lipitor Holding JIAN inhibitor and hydrochlorothiazide Had beta-blockers when appropriate GERD Home h2 carson Did not pass swallow eval. NG tube inserted start tube feeding with Glucerna SCDs With acute left MCA stroke with aphasia and dysphagia. Patient is at risk for acute decompensation and also risk for cerebral edema and midline shift. S/p TAVR with stroke thereafter DC plan discharge to [facility] rehab when cleared by consultants. Lea Nunez MD March 16, 2018 09:01
[2018-03-16 09:17] LABS: HEMATOCRIT 28.9 % (39.0-51.0); MEAN CELL VOLUME 89.6 FL (80.0-100.0); MEAN CORPUSCULAR HEMOGLOBIN 31.1 PG (27.0-34.0); MEAN CORPUSCULAR HGB CONC 34.7 % (32.0-36.0); MEAN PLATELET VOLUME 9.1 FL (7.0-11.0); PLATELET COUNT 284 TH/MM3 (150-450); RED BLOOD COUNT 3.23 MIL/MM3 (4.50-5.90); RED CELL DISTRIBUTION WIDTH 14.4 % (11.6-17.2); WHITE BLOOD COUNT 12.5 TH/MM3 (4.0-11.0)
[2018-03-16 16:27] LABS: BICARBONATE 29.6 MEQ/L (21.0-32.0); CALCIUM 9.6 MG/DL (8.5-10.1); CREATININE 1.26 MG/DL (0.60-1.30)
[2018-03-16] MEDS: ACETAMINOPHEN/HYDROcodone 325 MG/5 MG TAB PO PRN (18:34)
[2018-03-17] VITALS (26 sets, daily range): BP systolic 141–176; BP diastolic 67–82; PULSE 84–107; RESP 18; TEMP 96.7–98.7; O2SAT 92–100
[2018-03-17] MEDS: INSULIN NovoLIN REGULAR SUPPLEMENTAL SCALE SQ SCH ×5 (03:00→21:00)
[2018-03-17] MEDS ORDERED: FURO20TA PO (07:55)
[2018-03-17] MEDS ORDERED: LISI10TA3 PO (08:03)
--- NOTE | 2018-03-17 08:08 | HHI.DS ---
Discharge Summary Admission Date March 11, 2018 at 08:39 Discharge Date: March 17, 2018 Admitting Diagnosis severe aortic stenosis (1) Aortic stenosis ICD Codes: I35.0 - Nonrheumatic aortic (valve) stenosis (2) Diastolic CHF ICD Codes: I50.30 - Unspecified diastolic (congestive) heart failure (3) COPD (chronic obstructive pulmonary disease) ICD Codes: J44.9 - Chronic obstructive pulmonary disease, unspecified (4) CAD (coronary artery disease) ICD Codes: I25.10 - Atherosclerotic heart disease of [place] coronary artery without angina pectoris (5) CVA (cerebral vascular accident) ICD Codes: I63.9 - Cerebral infarction, unspecified (6) Median sternotomy (7) S/P TAVR (transcatheter aortic valve replacement) ICD Codes: Z95.2 - Presence of prosthetic heart valve CBC/BMP: 03/16/18 0840 03/16/18 0840 Significant Findings Laboratory Tests Test 03/16/18 08:40 White Blood Count 12.5 TH/MM3 (4.0-11.0) Red Blood Count 3.23 MIL/MM3 (4.50-5.90) Hemoglobin 10.0 GM/DL (13.0-17.0) Hematocrit 28.9 % (39.0-51.0) Blood Urea Nitrogen 32 MG/DL (7-18) Random Glucose 152 MG/DL (74-106) Estimat Glomerular Filtration Rate 56 ML/MIN (>89) Imaging Last Impressions Chest X-Ray 03/14/18 0600 Signed Impressions: Service Date/Time: Wednesday, March 14, 2018 03:21 - CONCLUSION: No significant change Félix Guido MD Head CT 03/12/18 0000 Signed Impressions: Service Date/Time: March 16:35 - CONCLUSION: Interval development of a 3.5 cm hypodensity in the left parietal lobe suspicious for acute nonhemorrhagic infarction. Britton York MD Neck CTA 03/11/18 0000 Signed Impressions: Service Date/Time: Sunday, March 11, 2018 14:53 - CONCLUSION: 1. Atherosclerotic plaquing at the bifurcations with hard and soft plaque present. No hemodynamically significant lesion identified. 2. CTA of the brain is pending. This examination was reviewed with Dr. Maynard at approximately 1500 hrs. Primitivo Li MD Head CTA 03/11/18 0000 Signed Impressions: Service Date/Time: Sunday, March 11, 2018 14:53 - CONCLUSION: Unremarkable CTA of the brain. Renny Norris MD PE at Discharge HEAD: Normocephalic. EYES: No scleral icterus. No injection or drainage. NECK: Supple, trachea midline. No JVD or lymphadenopathy. CARDIOVASCULAR: Regular rate and rhythm without murmurs, gallops, or rubs. RESPIRATORY: Breath sounds equal bilaterally. No accessory muscle use. GASTROINTESTINAL: Abdomen soft, non-tender, nondistended. MUSCULOSKELETAL: No cyanosis, or edema. BACK: Nontender without obvious deformity. No CVA tenderness. NEURO: strength RLE 5/5. RUE 5/5. R hand thumb and first metacarpal improving strength. R facial droop. speech improving. cognitive normal. ambulating Hospital Course Immediately postprocedure upon waking he was noted to have right-sided weakness and right-sided facial droop. He was taken down emergently for CT of the head which did not show evidence of stroke or intracranial bleed at that time. Patient made quick recovery of the right leg and most of the right upper extremity mobility. He did have residual right facial droop and speech difficulty. Follow-up CT scan to confirm parietal stroke. Neurology was consulted at the time of the initial event and recommended against thrombolytic or endovascular intervention. Patient's been followed with physical and occupational therapy. This made a very good recovery with full strength in the right leg and right arm except for his first and second digits on the right hand. He still has residual right facial droop but his speech is greatly improved. He is ambulating without assistance. Hemodynamically he has been doing well and from a transcatheter aortic valve replacement and congestive heart failure standpoint he is well compensated. We are hopeful for potential discharge to rehabilitation today in anticipation of eventually getting home in the next week or so. Pt Condition on Discharge: Good Discharge Disposition: Discharge to SNF Discharge Instructions DIET: Follow Instructions for: As Tolerated, No Restrictions, Heart Healthy Diet Speech Therapy-Diet Recommenda: Honey Thickened Liquids, Mechanical Soft Activities you can perform: Regular-No Restrictions Ty Alberto MD March 17, 2018 08:08
--- NOTE | 2018-03-17 08:10 | HHI.PR ---
Subjective Remarks Follow-up of stroke after TAVR Patient speech is improved today. Also right hand weakness is improving. Says he did sleep better last night. Eager to improve and do more physical therapy at rehab. Family at bedside very supportive. Patient denies any new motor deficit no change in vision. Eating much better today no problem with swallowing. Objective Vitals Vital Signs Date Time Temp Pulse Resp B/P (MAP) Pulse Ox O2 Delivery O2 Flow Rate FiO2 03/17/18 08:00 96 03/17/18 07:00 103 03/17/18 05:00 93 03/17/18 04:00 92 03/17/18 03:31 97 Room Air 03/17/18 03:00 96.7 92 18 176/70 (105) 97 03/17/18 03:00 85 03/17/18 02:00 85 03/17/18 01:00 85 03/17/18 00:00 97.4 98 18 141/82 (101) 99 03/17/18 00:00 84 03/16/18 23:10 95 Room Air 03/16/18 23:00 89 03/16/18 22:00 88 03/16/18 21:00 92 03/16/18 20:57 98 Room Air 03/16/18 20:00 88 03/16/18 20:00 97.4 86 16 176/76 (109) 96 03/16/18 19:00 98 03/16/18 18:00 98 03/16/18 17:00 106 03/16/18 16:00 110 03/16/18 15:20 98.5 92 16 154/68 (96) 95 03/16/18 15:19 98 Room Air 03/16/18 15:00 106 03/16/18 14:00 90 03/16/18 13:00 93 03/16/18 12:00 92 03/16/18 11:54 98 Room Air 03/16/18 11:53 98.3 94 16 169/74 (105) 98 03/16/18 11:00 92 03/16/18 10:00 94 03/16/18 09:00 96 I/O 03/16/18 03/16/18 03/16/18 03/17/18 03/17/18 03/17/18 07:00 15:00 23:00 07:00 15:00 23:00 Intake Total 100 ml 840 ml 120 ml Output Total 320 ml 1300 ml 250 ml Balance -220 ml -460 ml -130 ml Intake Oral 100 ml 840 ml 120 ml Output Urine Total 320 ml 1300 ml 250 ml # Bowel Movements 0 Result Diagram: 03/16/18 0840 03/16/18 0840 Imaging Last Impressions Chest X-Ray 03/14/18 0600 Signed Impressions: Service Date/Time: Wednesday, March 14, 2018 03:21 - CONCLUSION: No significant change Félix Guido MD Head CT 03/12/18 0000 Signed Impressions: Service Date/Time: March 16:35 - CONCLUSION: Interval development of a 3.5 cm hypodensity in the left parietal lobe suspicious for acute nonhemorrhagic infarction. Britton York MD Neck CTA 03/11/18 0000 Signed Impressions: Service Date/Time: Sunday, March 11, 2018 14:53 - CONCLUSION: 1. Atherosclerotic plaquing at the bifurcations with hard and soft plaque present. No hemodynamically significant lesion identified. 2. CTA of the brain is pending. This examination was reviewed with Dr. Maynard at approximately 1500 hrs. Primitivo Li MD Head CTA 03/11/18 0000 Signed Impressions: Service Date/Time: Sunday, March 11, 2018 14:53 - CONCLUSION: Unremarkable CTA of the brain. Renny Norris MD Objective Remarks GENERAL: Elderly male, lying in bed,expressive aphasia improving facial droop HEENT: Normocephalic. Atraumatic. Pupils equal, round, reactive, prominent right facial droop NECK: Trachea is midline. There is no JVD. CHEST: Clear to auscultation. No wheezing. On oxygen by NC. CARDIOVASCULAR: Normal rate, regular rhythm. Sinus by telemetry. Transvenous pacer removed ABDOMEN: Soft, nontender, nondistended. No guarding. MUSCULOSKELETAL: Pulses 2+. No peripheral edema. Bilateral groin sites with mild ecchymosis NEUROLOGICAL: Patient is alert awake expressive aphasia and right facial droop. Motor strength 5 out of 5 on the left side 4 out of 5 on the right side. Right sided drift. Expressive aphasia improved. A/P Problem List: (1) Aortic stenosis ICD Code: I35.0 - Nonrheumatic aortic (valve) stenosis (2) Diastolic CHF ICD Code: I50.30 - Unspecified diastolic (congestive) heart failure (3) COPD (chronic obstructive pulmonary disease) ICD Code: J44.9 - Chronic obstructive pulmonary disease, unspecified (4) CAD (coronary artery disease) ICD Code: I25.10 - Atherosclerotic heart disease of [place] coronary artery without angina pectoris (5) CVA (cerebral vascular accident) ICD Code: I63.9 - Cerebral infarction, unspecified (6) Median sternotomy (7) S/P TAVR (transcatheter aortic valve replacement) ICD Code: Z95.2 - Presence of prosthetic heart valve Assessment and Plan 77-year-old male postop day 1 status post transcatheter aortic valve replacement , complicated by 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 Rodríguez Continue Lipitor 80 mg daily DC Chaitanya-Synephrine drip Labetalol or hydralazine IV prn if SBP > 180 CTA/CT brain 03/11/[address] head 03/12 shows acute left parietal infarct PT/OT/Speech, up to chair daily Plan discharge to rehab Improving slowly Status post transcatheter aortic valve replacement 03/11 with common iliac access DC maintenance IV fluids. Lasix 20 mg IV times Close neurovascular checks Close urine output monitoring Anticoagulation per Dr. Alberto Continue aspirin Plavix Hold lisinopril, hold hydrochlorothiazide COPD Nebs, Aggressive pulmonary toilet. EzPAP, Acapella Wean FiO2 for goal SPO2 greater than 90% Out of bed per PT Hypertension Goal systolic blood pressure 160- 180 Hold home antihypertensives (lisinopril and hydrochlorothiazide) Hyperlipidemia Restart home statin via NGT Diabetes Sliding-scale insulin Coronary artery disease Aspirin, plavix, Lipitor Holding JIAN inhibitor and hydrochlorothiazide Had beta-blockers when appropriate GERD Home h2 carson Did not pass swallow eval. NG tube inserted start tube feeding with Glucerna SCDs With acute left MCA stroke with aphasia and dysphagia. Improving slowly S/p TAVR with stroke thereafter DC plan discharge to [facility] rehab when arrangements are done and cleared by consultants. Awaiting insurance approval. Lea Nunez MD March 17, 2018 08:10
[2018-03-17] MEDS: ATORVASTATIN 80 MG TAB PO SCH (08:38)
[2018-03-17] MEDS: CLOPIDOGREL 75 MG TAB PO SCH (08:38)
[2018-03-17] MEDS: DOCUSATE SODIUM 50 MG/SENNA 8.6 MG TAB PO SCH ×2 (08:38→21:00)
[2018-03-17] MEDS: BUDESONIDE-FORMOTEROL 160/4.5 MCG INHALER INH SCH ×2 (08:39→21:00)
[2018-03-17] MEDS: FAMOTIDINE 20 MG TAB PO SCH ×2 (08:39→21:00)
[2018-03-17] MEDS: BENEPROTEIN POWDER 1 PACK G-TUBE SCH ×3 (08:39→16:11)
[2018-03-17] MEDS: ASPIRIN 81 MG CHEW TAB PO SCH (08:39)
[2018-03-17] MEDS: DOCUSATE SODIUM 100 MG CAP PO SCH ×2 (08:39→21:00)
[2018-03-17] MEDS: POTASSIUM CHLORIDE 20 MEQ CONTROLLED RELEASE TAB PO SCH (08:39)
[2018-03-17] MEDS ORDERED: FUROSEMIDE 20 MG TAB PO SCH (09:00)
[2018-03-17] MEDS: LISINOPRIL 10 MG TAB PO SCH (09:01)
[2018-03-18] VITALS (28 sets, daily range): BP systolic 124–168; BP diastolic 60–70; PULSE 57–104; RESP 16–20; TEMP 96.7–98.8; O2SAT 95–100
[2018-03-18] MEDS ORDERED: FUROSEMIDE 20 MG/2 ML VIAL IV PUSH ONE (02:15)
[2018-03-18] MEDS: INSULIN NovoLIN REGULAR SUPPLEMENTAL SCALE SQ SCH ×5 (03:00→21:00)
--- NOTE | 2018-03-18 04:32 | RADRPT ---
EXAM DATE/TIME: 03/18/2018 02:30 [place] COMPARISON: No previous studies available for comparison. INDICATIONS : Short of breath. MEDICAL HISTORY : Cardiovascular disease. Hypertension Chronic obstructive pulmonary disease. Diabetes SURGICAL HISTORY : TAVR. ENCOUNTER: Subsequent ACUITY: 4 - 6 days PAIN SCORE: 0/10 LOCATION: Bilateral chest FINDINGS: A single view of the chest demonstrates the lungs to be symmetrically aerated without evidence of mas s, infiltrate or effusion. Numerous prominent sternal wires The cardiomediastinal contours are unrem arkable. Osseous structures are intact. CONCLUSION: Normal examination. Ty Lucas MD on March 18, 2018 at 4:30 Board Certified Radiologist. This report was verified electronically.
--- NOTE | 2018-03-18 08:33 | PD.CARD.PN ---
Subjective Subjective Remarks Patient has some shortness of breath overnight, was given extra IV Lasix 20 mg and a chest x-ray was checked. He denies any chest pain. Currently awaiting [facility]. (Wilian Reed) Objective Medications Current Medications Medications (Trade) Dose Ordered Sig/Yuki Route Start Time Stop Time Status Last Admin (Duoneb Neb) 1 ampule Q2HR NEB PRN INH 03/11/18 14:00 03/15/18 21:38 Potassium Chloride 100 ml @ 50 mls/hr Q2H PRN IV 03/11/18 14:00 Potassium Chloride 100 ml @ 50 mls/hr Q2H PRN IV 03/11/18 14:00 (K-Lyte Cl Eff) 50 meq UNSCH PRN PO 03/11/18 14:00 03/14/18 08:05 Potassium Chloride 100 ml @ 25 mls/hr UNSCH PRN IV 03/11/18 14:00 Potassium Chloride 100 ml @ 50 mls/hr Q2H PRN IV 03/11/18 14:00 Magnesium Sulfate 4 gm/Sodium Chloride 100 ml @ 50 mls/hr UNSCH PRN IV 03/11/18 14:00 (Mag-Ox) 800 mg UNSCH PRN PO 03/11/18 14:00 Magnesium Sulfate 2 gm/Sodium Chloride 100 ml @ 50 mls/hr UNSCH PRN IV 03/11/18 14:00 03/13/18 11:29 (K-Phos) 2,000 mg Q4H PRN PO 03/11/18 14:00 Sodium Phosphate 30 mmol/Sodium Chloride 250 ml @ 42 mls/hr UNSCH PRN IV 03/11/18 14:00 03/13/18 11:30 (K-Phos) 2,000 mg UNSCH PRN PO/TUBE 03/11/18 14:00 Potassium Phosphate 30 mmol/ Sodium Chloride 260 ml @ 42 mls/hr UNSCH PRN IV 03/11/18 14:00 (Symbicort 160-4.5 Mcg Inh) 2 puff Q12HR INH 03/11/18 21:00 03/17/18 21:00 (Colace) 100 mg BID PO 03/11/18 21:00 03/15/18 20:51 (Pepcid) 20 mg BID PO 03/11/18 21:00 03/17/18 08:39 (Lipitor) 80 mg DAILY PO 03/12/18 09:00 03/17/18 08:38 (NovoLIN R SUPPLEMENTAL SCALE) 1 ACHS AND 3AM SQ 03/11/18 17:00 03/17/18 11:33 (Aspirin Chew) 81 mg DAILY PO 03/12/18 09:00 03/17/18 08:39 (Plavix) 75 mg DAILY PO 03/12/18 09:00 03/17/18 08:38 (D50w (Vial) Inj) 50 ml UNSCH PRN IV PUSH 03/11/18 14:30 (Glucagon Inj) 1 mg UNSCH PRN OTHER 03/11/18 14:30 Acetaminophen 100 ml @ 400 mls/hr Q6H PRN IV 03/11/18 16:30 03/15/18 20:49 (Beneprotein Powder) 1 pack TID G-TUBE 03/13/18 09:00 03/15/18 08:33 ([place] 5-325 Mg) 1 tab Q4H PRN PO 03/13/18 17:15 03/16/18 18:34 (KCl) 20 meq DAILY PO 03/15/18 09:00 03/17/18 08:39 (Trandate Inj) 10 mg Q4H PRN IV PUSH 03/14/18 10:30 (Apresoline Inj) 20 mg Q4H PRN IV PUSH 03/14/18 10:30 (Narcan Inj) 0.4 mg UNSCH PRN IV PUSH 03/15/18 18:45 (Padmini-Colace) 1 tab BID PO 03/15/18 21:00 03/17/18 08:38 (Milk Of Magnesia Liq) 30 ml Q12H PRN PO 03/15/18 18:45 (Senokot) 17.2 mg Q12H PRN PO 03/15/18 18:45 (Dulcolax Supp) 10 mg DAILY PRN RECTAL 03/15/18 18:45 (Lactulose Liq) 30 ml DAILY PRN PO 03/15/18 18:45 (Lasix) 20 mg DAILY PO 03/17/18 09:00 03/17/18 08:39 (Prinivil) 10 mg DAILY PO 03/17/18 09:00 03/17/18 09:01 Vital Signs / I&O Vital Signs Date Time Temp Pulse Resp B/P (MAP) Pulse Ox O2 Delivery O2 Flow Rate FiO2 03/18/18 06:00 90 03/18/18 05:07 60 03/18/18 04:00 60 03/18/18 03:44 Room Air 03/18/18 03:00 90 03/18/18 03:00 97.7 100 18 151/61 (91) 95 03/18/18 02:00 57 03/18/18 01:45 99 2.00 03/18/18 01:00 57 03/18/18 00:14 96 Room Air 03/18/18 00:00 86 03/18/18 00:00 96.7 95 18 143/66 (91) 95 03/17/18 23:00 92 03/17/18 22:00 88 03/17/18 21:00 90 03/17/18 20:00 92 03/17/18 20:00 96.9 92 18 165/72 (103) 92 03/17/18 20:00 95 Room Air 03/17/18 19:00 91 03/17/18 18:00 99 03/17/18 17:00 104 03/17/18 16:00 88 03/17/18 15:09 100 Room Air 03/17/18 15:09 98.7 99 18 150/67 (94) 100 03/17/18 15:00 93 03/17/18 14:00 90 03/17/18 13:00 98 03/17/18 12:00 89 03/17/18 11:06 99 Room Air 03/17/18 11:05 98.5 100 18 162/73 (102) 99 03/17/18 11:00 99 03/17/18 10:00 96 03/17/18 09:00 107 I/O 03/17/18 03/17/18 03/17/18 03/18/18 03/18/18 03/18/18 06:59 14:59 22:59 06:59 14:59 22:59 Intake Total 120 ml 920 ml 240 ml Output Total 250 ml 750 ml 325 ml Balance -130 ml 170 ml -85 ml Intake Oral 120 ml 920 ml 240 ml Output Urine Total 250 ml 750 ml 325 ml # Bowel Movements 0 2 1 Physical Exam GENERAL: Well-developed well-nourished. In no acute distress. NECK: No carotid bruits. No JVD. CARDIOVASCULAR: Regular rate and rhythm. No murmur appreciated. RESPIRATORY: No accessory muscle use. Diminished breath sounds in the bases. MUSCULOSKELETAL: No clubbing or cyanosis. Trace lower extremity edema. NEUROLOGICAL: Awake and alert. Expressive aphasia. Right-sided hemiparesis. SKIN: Left groin ecchymosis, no swelling. Imaging Last 24 hours Impressions Chest X-Ray 03/18/18 0000 Signed Impressions: Service Date/Time: Sunday, March 18, 2018 02:30 - CONCLUSION: Normal examination. Ty Lucas MD (Wilian Reed) Assessment and Plan Problem List: (1) S/P TAVR (transcatheter aortic valve replacement) ICD Codes: Z95.2 - Presence of prosthetic heart valve (2) CVA (cerebral vascular accident) ICD Codes: I63.9 - Cerebral infarction, unspecified (3) CAD (coronary artery disease) ICD Codes: I25.10 - Atherosclerotic heart disease of [place] coronary artery without angina pectoris (4) COPD (chronic obstructive pulmonary disease) ICD Codes: J44.9 - Chronic obstructive pulmonary disease, unspecified (5) Diastolic CHF ICD Codes: I50.30 - Unspecified diastolic (congestive) heart failure (6) Aortic stenosis ICD Codes: I35.0 - Nonrheumatic aortic (valve) stenosis (7) Median sternotomy Assessment and Plan Severe aortic valve stenosis - s/p TAVR: Post procedure DELMI looks good. Continue ASA and Plavix. Diastolic CHF: Chest x-ray 03/18 unremarkable. With shortness of breath will increase oral Lasix to 40 mg daily. CVA: Cleared by neurology and hospitalist. Plan for continued PT/OT/ST at [facility], awaiting place. Discussed Condition With Patient, RN, Dr. Alberto (Wilian Reed) Assessment and Plan ready for potential discharge to Rehab. awaiting approval from [facility] [place]. needs intensive daily physical rehabilitation and daily physician oversight (Ty Alberto MD) Wilian Reed March 18, 2018 08:33 Ty Alberto MD March 18, 2018 14:05
[2018-03-18] MEDS ORDERED: FURO40TA PO (08:34)
--- NOTE | 2018-03-18 08:57 | HHI.PR ---
Subjective Remarks Follow-up of stroke after TAVR The patient says she feels tired today, he is in the chair eating well. No nausea vomiting no diarrhea constipation Objective Vitals Vital Signs Date Time Temp Pulse Resp B/P (MAP) Pulse Ox O2 Delivery O2 Flow Rate FiO2 03/18/18 08:00 97.6 92 20 137/62 (87) 98 03/18/18 08:00 95 03/18/18 08:00 98 Nasal Cannula 2.00 03/18/18 06:00 90 03/18/18 05:07 60 03/18/18 04:00 60 03/18/18 03:44 Room Air 03/18/18 03:00 90 03/18/18 03:00 97.7 100 18 151/61 (91) 95 03/18/18 02:00 57 03/18/18 01:45 99 2.00 03/18/18 01:00 57 03/18/18 00:14 96 Room Air 03/18/18 00:00 86 03/18/18 00:00 96.7 95 18 143/66 (91) 95 03/17/18 23:00 92 03/17/18 22:00 88 03/17/18 21:00 90 03/17/18 20:00 92 03/17/18 20:00 96.9 92 18 165/72 (103) 92 03/17/18 20:00 95 Room Air 03/17/18 19:00 91 03/17/18 18:00 99 03/17/18 17:00 104 03/17/18 16:00 88 03/17/18 15:09 100 Room Air 03/17/18 15:09 98.7 99 18 150/67 (94) 100 03/17/18 15:00 93 03/17/18 14:00 90 03/17/18 13:00 98 03/17/18 12:00 89 03/17/18 11:06 99 Room Air 03/17/18 11:05 98.5 100 18 162/73 (102) 99 03/17/18 11:00 99 03/17/18 10:00 96 03/17/18 09:00 107 I/O 5/8/18 5/8/18 5/8/18 5/9/18 5/9/18 5/9/18 06:59 14:59 22:59 06:59 14:59 22:59 Intake Total 120 ml 920 ml 240 ml Output Total 250 ml 750 ml 325 ml Balance -130 ml 170 ml -85 ml Intake Oral 120 ml 920 ml 240 ml Output Urine Total 250 ml 750 ml 325 ml # Bowel Movements 0 2 1 Result Diagram: 03/16/18 0840 03/16/18 0840 Imaging Last Impressions Chest X-Ray 03/18/18 0000 Signed Impressions: Service Date/Time: Sunday, March 18, 2018 02:30 - CONCLUSION: Normal examination. Ty Lucas MD Head CT 03/12/18 0000 Signed Impressions: Service Date/Time: March 16:35 - CONCLUSION: Interval development of a 3.5 cm hypodensity in the left parietal lobe suspicious for acute nonhemorrhagic infarction. Britton York MD Neck CTA 03/11/18 0000 Signed Impressions: Service Date/Time: Sunday, March 11, 2018 14:53 - CONCLUSION: 1. Atherosclerotic plaquing at the bifurcations with hard and soft plaque present. No hemodynamically significant lesion identified. 2. CTA of the brain is pending. This examination was reviewed with Dr. Maynard at approximately 1500 hrs. Primitivo Li MD Head CTA 03/11/18 0000 Signed Impressions: Service Date/Time: Sunday, March 11, 2018 14:53 - CONCLUSION: Unremarkable CTA of the brain. Renny Norris MD Objective Remarks GENERAL: Elderly male, lying in bed,expressive aphasia improving facial droop HEENT: Normocephalic. Atraumatic. Pupils equal, round, reactive, prominent right facial droop NECK: Trachea is midline. There is no JVD. CHEST: Clear to auscultation. No wheezing. On oxygen by NC. CARDIOVASCULAR: Normal rate, regular rhythm. Sinus by telemetry. Transvenous pacer removed ABDOMEN: Soft, nontender, nondistended. No guarding. MUSCULOSKELETAL: Pulses 2+. No peripheral edema. Bilateral groin sites with mild ecchymosis NEUROLOGICAL: Patient is alert awake expressive aphasia and right facial droop. Motor strength 5 out of 5 on the left side 4 out of 5 on the right side. Right sided drift. Expressive aphasia improved. A/P Problem List: (1) Aortic stenosis ICD Code: I35.0 - Nonrheumatic aortic (valve) stenosis (2) Diastolic CHF ICD Code: I50.30 - Unspecified diastolic (congestive) heart failure (3) COPD (chronic obstructive pulmonary disease) ICD Code: J44.9 - Chronic obstructive pulmonary disease, unspecified (4) CAD (coronary artery disease) ICD Code: I25.10 - Atherosclerotic heart disease of [place] coronary artery without angina pectoris (5) CVA (cerebral vascular accident) ICD Code: I63.9 - Cerebral infarction, unspecified (6) Median sternotomy (7) S/P TAVR (transcatheter aortic valve replacement) ICD Code: Z95.2 - Presence of prosthetic heart valve Assessment and Plan 77-year-old male postop day 1 status post transcatheter aortic valve replacement , complicated by 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 Rodríguez Continue Lipitor 80 mg daily DC Chaitanya-Synephrine drip Labetalol or hydralazine IV prn if SBP > 180 CTA/CT brain 03/11/[address] head 03/12 shows acute left parietal infarct PT/OT/Speech, up to chair daily Plan discharge to rehab Improving slowly Status post transcatheter aortic valve replacement 03/11 with common iliac access DC maintenance IV fluids. Lasix 20 mg IV times Close neurovascular checks Close urine output monitoring Anticoagulation per Dr. Alberto Continue aspirin Plavix Hold lisinopril, hold hydrochlorothiazide COPD Nebs, Aggressive pulmonary toilet. EzPAP, Acapella Wean FiO2 for goal SPO2 greater than 90% Out of bed per PT Hypertension Goal systolic blood pressure 160- 180 Hold home antihypertensives (lisinopril and hydrochlorothiazide) Hyperlipidemia Restart home statin via NGT Diabetes Sliding-scale insulin Coronary artery disease Aspirin, plavix, Lipitor Holding JIAN inhibitor and hydrochlorothiazide Had beta-blockers when appropriate GERD Home h2 carson Did not pass swallow eval. NG tube inserted start tube feeding with Glucerna SCDs With acute left MCA stroke with aphasia and dysphagia. Improving slowly S/p TAVR with stroke thereafter DC plan needs rehab, DC when arrangements are done and cleared by consultants. Lea Nunez MD March 18, 2018 08:56
[2018-03-18] MEDS: DOCUSATE SODIUM 100 MG CAP PO SCH ×2 (09:00→21:00)
[2018-03-18] MEDS: ASPIRIN 81 MG CHEW TAB PO SCH (09:00)
[2018-03-18] MEDS: FUROSEMIDE 40 MG TAB PO SCH (09:00)
[2018-03-18] MEDS: BUDESONIDE-FORMOTEROL 160/4.5 MCG INHALER INH SCH ×2 (09:00→21:03)
[2018-03-18] MEDS: BENEPROTEIN POWDER 1 PACK G-TUBE SCH ×3 (09:00→15:52)
[2018-03-18] MEDS: DOCUSATE SODIUM 50 MG/SENNA 8.6 MG TAB PO SCH ×2 (09:00→21:00)
[2018-03-18] MEDS: RESP: ALBUTEROL 2.5 MG/IPRATROPIUM 0.5 MG NEB (PRN) INH (09:09)
[2018-03-18] MEDS: CLOPIDOGREL 75 MG TAB PO SCH (09:18)
[2018-03-18] MEDS: POTASSIUM CHLORIDE 20 MEQ CONTROLLED RELEASE TAB PO SCH (09:18)
[2018-03-18] MEDS: FAMOTIDINE 20 MG TAB PO SCH ×2 (09:19→21:03)
[2018-03-18] MEDS: LISINOPRIL 10 MG TAB PO SCH (09:19)
[2018-03-18] MEDS: ATORVASTATIN 80 MG TAB PO SCH (09:19)
[2018-03-18] MEDS: ACETAMINOPHEN/HYDROcodone 325 MG/5 MG TAB PO PRN ×2 (09:19→21:03)
[2018-03-18] MEDS ORDERED: FUROSEMIDE 40 MG/4 ML VIAL IV PUSH ONE (09:30)
[2018-03-18] MEDS: ENOXAPARIN SODIUM 40 MG/0.4 ML SYRINGE SQ SCH (10:34)
[2018-03-18 11:50] LABS: AUTOMATED NEUTROPHIL # 10.5 TH/MM3 (1.8-7.7); BASOPHIL # 0.1 TH/MM3 (0-0.2); BASOPHIL % 0.7 % (0.0-2.0); EOSINOPHIL # 0.6 TH/MM3 (0-0.4); EOSINOPHIL % 4.9 % (0.0-4.0); HEMATOCRIT 30.9 % (39.0-51.0); HEMOGLOBIN 10.1 GM/DL (13.0-17.0); LYMPH % 10.5 % (9.0-44.0); LYMPHOCYTE # 1.4 TH/MM3 (1.0-4.8); MEAN CELL VOLUME 90.9 FL (80.0-100.0); MEAN CORPUSCULAR HEMOGLOBIN 29.7 PG (27.0-34.0); MEAN CORPUSCULAR HGB CONC 32.7 % (32.0-36.0); MEAN PLATELET VOLUME 9.1 FL (7.0-11.0); MONO % 4.7 % (0.0-8.0); MONOCYTE # 0.6 TH/MM3 (0-0.9); NEUT % 79.2 % (16.0-70.0); PLATELET COUNT 359 TH/MM3 (150-450); RED BLOOD COUNT 3.39 MIL/MM3 (4.50-5.90); RED CELL DISTRIBUTION WIDTH 14.7 % (11.6-17.2); WHITE BLOOD COUNT 13.2 TH/MM3 (4.0-11.0)
[2018-03-18 12:14] LABS: ALBUMIN 3.3 GM/DL (3.4-5.0); ALT (GPT) 76 U/L (12-78); AST (GOT) 77 U/L (15-37); BICARBONATE 30.8 MEQ/L (21.0-32.0); BLOOD UREA NITROGEN 48 MG/DL (7-18); CALCIUM 9.7 MG/DL (8.5-10.1); CHLORIDE 100 MEQ/L (98-107); CREATININE 1.49 MG/DL (0.60-1.30); GLOMERULAR FILTRATION RATE 46 ML/MIN (>89); GLUCOSE,RANDOM 177 MG/DL (74-106); SODIUM (NA) 141 MEQ/L (136-145)
[2018-03-18 12:16] LABS: ALKALINE PHOSPHATASE 314 U/L (45-117); TOTAL BILIRUBIN ADULT 1.7 MG/DL (0.2-1.0); TOTAL PROTEIN 7.8 GM/DL (6.4-8.2)
[2018-03-19] VITALS (9 sets, daily range): BP systolic 130–160; BP diastolic 60–68; PULSE 78–94; RESP 14–18; TEMP 97.5–99; O2SAT 98–100
[2018-03-19] MEDS: INSULIN NovoLIN REGULAR SUPPLEMENTAL SCALE SQ SCH ×2 (03:00→08:36)
[2018-03-19] MEDS: ACETAMINOPHEN/HYDROcodone 325 MG/5 MG TAB PO PRN (05:50)
--- NOTE | 2018-03-19 08:05 | PD.CARD.PN ---
Subjective Subjective Remarks Still little short of breath today, but improved from yesterday. No chest pain. Per case management note, Brandie requesting Dr. boles doctor for [facility]. The patient states he would rather go home with his and home health care rather than wait for [facility]. (Wilian Reed) Objective Medications Current Medications Medications (Trade) Dose Ordered Sig/Yuki Route Start Time Stop Time Status Last Admin (Duoneb Neb) 1 ampule Q2HR NEB PRN INH 03/11/18 14:00 03/18/18 09:09 Potassium Chloride 100 ml @ 50 mls/hr Q2H PRN IV 03/11/18 14:00 Potassium Chloride 100 ml @ 50 mls/hr Q2H PRN IV 03/11/18 14:00 (K-Lyte Cl Eff) 50 meq UNSCH PRN PO 03/11/18 14:00 03/14/18 08:05 Potassium Chloride 100 ml @ 25 mls/hr UNSCH PRN IV 03/11/18 14:00 Potassium Chloride 100 ml @ 50 mls/hr Q2H PRN IV 03/11/18 14:00 Magnesium Sulfate 4 gm/Sodium Chloride 100 ml @ 50 mls/hr UNSCH PRN IV 03/11/18 14:00 (Mag-Ox) 800 mg UNSCH PRN PO 03/11/18 14:00 Magnesium Sulfate 2 gm/Sodium Chloride 100 ml @ 50 mls/hr UNSCH PRN IV 03/11/18 14:00 03/13/18 11:29 (K-Phos) 2,000 mg Q4H PRN PO 03/11/18 14:00 Sodium Phosphate 30 mmol/Sodium Chloride 250 ml @ 42 mls/hr UNSCH PRN IV 03/11/18 14:00 03/13/18 11:30 (K-Phos) 2,000 mg UNSCH PRN PO/TUBE 03/11/18 14:00 Potassium Phosphate 30 mmol/ Sodium Chloride 260 ml @ 42 mls/hr UNSCH PRN IV 03/11/18 14:00 (Symbicort 160-4.5 Mcg Inh) 2 puff Q12HR INH 03/11/18 21:00 03/18/18 21:03 (Colace) 100 mg BID PO 03/11/18 21:00 03/15/18 20:51 (Lipitor) 80 mg DAILY PO 03/12/18 09:00 03/18/18 09:19 (NovoLIN R SUPPLEMENTAL SCALE) 1 ACHS AND 3AM SQ 03/11/18 17:00 03/18/18 12:00 (Aspirin Chew) 81 mg DAILY PO 03/12/18 09:00 03/18/18 09:00 (Plavix) 75 mg DAILY PO 03/12/18 09:00 03/18/18 09:18 (D50w (Vial) Inj) 50 ml UNSCH PRN IV PUSH 03/11/18 14:30 (Glucagon Inj) 1 mg UNSCH PRN OTHER 03/11/18 14:30 Acetaminophen 100 ml @ 400 mls/hr Q6H PRN IV 03/11/18 16:30 03/15/18 20:49 (Beneprotein Powder) 1 pack TID G-TUBE 03/13/18 09:00 03/15/18 08:33 (Hawley 5-325 Mg) 1 tab Q4H PRN PO 03/13/18 17:15 03/19/18 05:50 (KCl) 20 meq DAILY PO 03/15/18 09:00 03/18/18 09:18 (Trandate Inj) 10 mg Q4H PRN IV PUSH 03/14/18 10:30 (Apresoline Inj) 20 mg Q4H PRN IV PUSH 03/14/18 10:30 (Narcan Inj) 0.4 mg UNSCH PRN IV PUSH 03/15/18 18:45 (Padmini-Colace) 1 tab BID PO 03/15/18 21:00 03/18/18 09:00 (Milk Of Magnesia Liq) 30 ml Q12H PRN PO 03/15/18 18:45 (Senokot) 17.2 mg Q12H PRN PO 03/15/18 18:45 (Dulcolax Supp) 10 mg DAILY PRN RECTAL 03/15/18 18:45 (Lactulose Liq) 30 ml DAILY PRN PO 03/15/18 18:45 (Prinivil) 10 mg DAILY PO 03/17/18 09:00 03/18/18 09:19 (Lasix) 40 mg DAILY PO 03/18/18 09:00 (Lovenox Inj) 40 mg DAILY SQ 5/9/18 10:00 03/18/18 10:34 (Pepcid) 10 mg BID PO 03/18/18 21:00 03/18/18 21:03 Vital Signs / I&O Vital Signs Date Time Temp Pulse Resp B/P (MAP) Pulse Ox O2 Delivery O2 Flow Rate FiO2 03/19/18 06:00 80 03/19/18 05:00 78 03/19/18 04:00 88 03/19/18 03:00 100 Room Air 03/19/18 03:00 99.0 82 14 130/62 (84) 100 03/19/18 03:00 81 03/19/18 02:00 86 03/19/18 01:00 86 03/19/18 00:00 84 03/18/18 23:00 98.8 84 16 144/67 (92) 100 03/18/18 23:00 92 03/18/18 23:00 100 Room Air 03/18/18 22:00 86 03/18/18 21:00 84 03/18/18 20:20 98 21 03/18/18 20:00 86 03/18/18 19:15 98.5 84 20 168/70 (102) 100 03/18/18 19:00 100 Room Air 03/18/18 19:00 87 03/18/18 18:00 71 03/18/18 17:00 87 03/18/18 16:25 96 21 03/18/18 16:00 85 03/18/18 15:00 100 Room Air 03/18/18 15:00 93 03/18/18 15:00 97.9 92 18 147/62 (90) 100 03/18/18 14:00 98 03/18/18 13:00 98 03/18/18 12:00 104 03/18/18 11:00 95 Room Air 03/18/18 11:00 99 03/18/18 11:00 98.2 104 20 124/60 (81) 95 03/18/18 10:00 90 03/18/18 09:00 80 I/O 03/18/18 03/18/18 03/18/18 03/19/18 03/19/18 03/19/18 07:00 15:00 23:00 07:00 15:00 23:00 Intake Total 240 ml 720 ml 480 ml Output Total 325 ml 1200 ml 800 ml Balance -85 ml -480 ml -320 ml Intake Oral 240 ml 720 ml 480 ml Output Urine Total 325 ml 1200 ml 800 ml # Bowel Movements 1 1 3 Physical Exam GENERAL: Well-developed well-nourished. In no acute distress. NECK: No carotid bruits. No JVD. CARDIOVASCULAR: Regular rate and rhythm. No murmur appreciated. RESPIRATORY: No accessory muscle use. Diminished breath sounds in the bases. MUSCULOSKELETAL: No clubbing or cyanosis. No extremity edema. NEUROLOGICAL: Awake and alert. Expressive aphasia. Right-sided hemiparesis. SKIN: Left groin ecchymosis, no swelling. Laboratory Laboratory Tests Test 03/18/18 11:38 White Blood Count 13.2 TH/MM3 Red Blood Count 3.39 MIL/MM3 Hemoglobin 10.1 GM/DL Hematocrit 30.9 % Mean Corpuscular Volume 90.9 FL Mean Corpuscular Hemoglobin 29.7 PG Mean Corpuscular Hemoglobin Concent 32.7 % Red Cell Distribution Width 14.7 % Platelet Count 359 TH/MM3 Mean Platelet Volume 9.1 FL Neutrophils (%) (Auto) 79.2 % Lymphocytes (%) (Auto) 10.5 % Monocytes (%) (Auto) 4.7 % Eosinophils (%) (Auto) 4.9 % Basophils (%) (Auto) 0.7 % Neutrophils # (Auto) 10.5 TH/MM3 Lymphocytes # (Auto) 1.4 TH/MM3 Monocytes # (Auto) 0.6 TH/MM3 Eosinophils # (Auto) 0.6 TH/MM3 Basophils # (Auto) 0.1 TH/MM3 CBC Comment DIFF FINAL Differential Comment Blood Urea Nitrogen 48 MG/DL Creatinine 1.49 MG/DL Random Glucose 177 MG/DL Total Protein 7.8 GM/DL Albumin 3.3 GM/DL Calcium Level 9.7 MG/DL Alkaline Phosphatase 314 U/L Aspartate Amino Transf (AST/SGOT) 77 U/L Alanine Aminotransferase (ALT/SGPT) 76 U/L Total Bilirubin 1.7 MG/DL Sodium Level 141 MEQ/L Potassium Level 4.2 MEQ/L Chloride Level 100 MEQ/L Carbon Dioxide Level 30.8 MEQ/L Anion Gap 10 MEQ/L Estimat Glomerular Filtration Rate 46 ML/MIN Imaging Last Impressions Chest X-Ray 03/18/18 0000 Signed Impressions: Service Date/Time: Sunday, March 18, 2018 02:30 - CONCLUSION: Normal examination. Ty Lucas MD Head CT 03/12/18 0000 Signed Impressions: Service Date/Time: March 16:35 - CONCLUSION: Interval development of a 3.5 cm hypodensity in the left parietal lobe suspicious for acute nonhemorrhagic infarction. Britton York MD Neck CTA 03/11/18 0000 Signed Impressions: Service Date/Time: Sunday, March 11, 2018 14:53 - CONCLUSION: 1. Atherosclerotic plaquing at the bifurcations with hard and soft plaque present. No hemodynamically significant lesion identified. 2. CTA of the brain is pending. This examination was reviewed with Dr. Maynard at approximately 1500 hrs. Primitivo Li MD Head CTA 03/11/18 0000 Signed Impressions: Service Date/Time: Sunday, March 11, 2018 14:53 - CONCLUSION: Unremarkable CTA of the brain. Renny Norris MD (Wilian Reed) Assessment and Plan Problem List: (1) S/P TAVR (transcatheter aortic valve replacement) ICD Codes: Z95.2 - Presence of prosthetic heart valve (2) CVA (cerebral vascular accident) ICD Codes: I63.9 - Cerebral infarction, unspecified (3) CAD (coronary artery disease) ICD Codes: I25.10 - Atherosclerotic heart disease of [place] coronary artery without angina pectoris (4) COPD (chronic obstructive pulmonary disease) ICD Codes: J44.9 - Chronic obstructive pulmonary disease, unspecified (5) Diastolic CHF ICD Codes: I50.30 - Unspecified diastolic (congestive) heart failure (6) Aortic stenosis ICD Codes: I35.0 - Nonrheumatic aortic (valve) stenosis (7) Median sternotomy Assessment and Plan Severe aortic valve stenosis - s/p TAVR: Post procedure DELMI looks good. Continue ASA and Plavix. Diastolic CHF: Chest x-ray 03/18 unremarkable. Lasix increased and lower extremity edema improved. Continue oral Lasix to 40 mg daily. Nebs as needed. CVA: Cleared by neurology and hospitalist. Plan for continued PT/OT/ST at rehabilitation vs [facility], supervisor case loading consulted. (Wilian Reed) Assessment and Plan insurance denied inpatient rehab DC home with PT/OT/speech therapy CM to coordinate FU with me in [address] Harding in 4 weeks Incentive spirometry at home cont lasix FU BMP in 2 weeks (Ty Alberto MD) Wilian Reed March 19, 2018 08:05 Ty Alberto MD March 19, 2018 10:19
[2018-03-19] MEDS: ASPIRIN 81 MG CHEW TAB PO SCH (08:36)
[2018-03-19] MEDS: FUROSEMIDE 40 MG TAB PO SCH (08:37)
[2018-03-19] MEDS: LISINOPRIL 10 MG TAB PO SCH (08:40)
[2018-03-19] MEDS: ATORVASTATIN 80 MG TAB PO SCH (08:40)
[2018-03-19] MEDS: FAMOTIDINE 20 MG TAB PO SCH (08:41)
[2018-03-19] MEDS: CLOPIDOGREL 75 MG TAB PO SCH (08:41)
[2018-03-19] MEDS: ENOXAPARIN SODIUM 40 MG/0.4 ML SYRINGE SQ SCH (08:42)
[2018-03-19] MEDS ORDERED: RESP: ALBUTEROL 2.5 MG/IPRATROPIUM 0.5 MG NEB (SCH) NEB ONE (09:00)
--- NOTE | 2018-03-19 09:18 | HHI.PR ---
Objective Vitals Vital Signs Date Time Temp Pulse Resp B/P (MAP) Pulse Ox O2 Delivery O2 Flow Rate FiO2 03/19/18 06:00 80 03/19/18 05:00 78 03/19/18 04:00 88 03/19/18 03:00 100 Room Air 03/19/18 03:00 99.0 82 14 130/62 (84) 100 03/19/18 03:00 81 03/19/18 02:00 86 03/19/18 01:00 86 03/19/18 00:00 84 03/18/18 23:00 98.8 84 16 144/67 (92) 100 03/18/18 23:00 92 03/18/18 23:00 100 Room Air 03/18/18 22:00 86 03/18/18 21:00 84 03/18/18 20:20 98 21 03/18/18 20:00 86 03/18/18 19:15 98.5 84 20 168/70 (102) 100 03/18/18 19:00 100 Room Air 03/18/18 19:00 87 03/18/18 18:00 71 03/18/18 17:00 87 03/18/18 16:25 96 21 03/18/18 16:00 85 03/18/18 15:00 100 Room Air 03/18/18 15:00 93 03/18/18 15:00 97.9 92 18 147/62 (90) 100 03/18/18 14:00 98 03/18/18 13:00 98 03/18/18 12:00 104 03/18/18 11:00 95 Room Air 03/18/18 11:00 99 03/18/18 11:00 98.2 104 20 124/60 (81) 95 03/18/18 10:00 90 I/O 03/18/18 03/18/18 03/18/18 03/19/18 03/19/18 03/19/18 07:00 15:00 23:00 07:00 15:00 23:00 Intake Total 240 ml 720 ml 480 ml Output Total 325 ml 1200 ml 800 ml Balance -85 ml -480 ml -320 ml Intake Oral 240 ml 720 ml 480 ml Output Urine Total 325 ml 1200 ml 800 ml # Bowel Movements 1 1 3 Result Diagram: 03/18/18 1138 03/18/18 1138 Objective Remarks GENERAL: Elderly male, lying in bed,expressive aphasia improving facial droop HEENT: Normocephalic. Atraumatic. Pupils equal, round, reactive, prominent right facial droop NECK: Trachea is midline. There is no JVD. CHEST: Clear to auscultation. No wheezing. On oxygen by NC. CARDIOVASCULAR: Normal rate, regular rhythm. Sinus by telemetry. Transvenous pacer removed ABDOMEN: Soft, nontender, nondistended. No guarding. MUSCULOSKELETAL: Pulses 2+. No peripheral edema. Bilateral groin sites with mild ecchymosis NEUROLOGICAL: Patient is alert awake expressive aphasia and right facial droop. Motor strength 5 out of 5 on the left side 4 out of 5 on the right side. Right sided drift. Expressive aphasia improved. A/P Problem List: (1) Aortic stenosis ICD Code: I35.0 - Nonrheumatic aortic (valve) stenosis (2) Diastolic CHF ICD Code: I50.30 - Unspecified diastolic (congestive) heart failure (3) COPD (chronic obstructive pulmonary disease) ICD Code: J44.9 - Chronic obstructive pulmonary disease, unspecified (4) CAD (coronary artery disease) ICD Code: I25.10 - Atherosclerotic heart disease of [place] coronary artery without angina pectoris (5) CVA (cerebral vascular accident) ICD Code: I63.9 - Cerebral infarction, unspecified (6) Median sternotomy (7) S/P TAVR (transcatheter aortic valve replacement) ICD Code: Z95.2 - Presence of prosthetic heart valve Assessment and Plan 77-year-old male postop day 1 status post transcatheter aortic valve replacement , complicated by 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 Rodríguez Continue Lipitor 80 mg daily DC Chaitanya-Synephrine drip Labetalol or hydralazine IV prn if SBP > 180 CTA/CT brain 03/11/[address] head 03/12 shows acute left parietal infarct PT/OT/Speech, up to chair daily Plan discharge to rehab Improving slowly Status post transcatheter aortic valve replacement 03/11 with common iliac access DC maintenance IV fluids. Lasix 20 mg IV times Close neurovascular checks Close urine output monitoring Anticoagulation per Dr. Alberto Continue aspirin Plavix Hold lisinopril, hold hydrochlorothiazide COPD Nebs, Aggressive pulmonary toilet. EzPAP, Acapella Wean FiO2 for goal SPO2 greater than 90% Out of bed per PT Hypertension Goal systolic blood pressure 160- 180 Hold home antihypertensives (lisinopril and hydrochlorothiazide) Hyperlipidemia Restart home statin via NGT Diabetes Sliding-scale insulin Coronary artery disease Aspirin, plavix, Lipitor Holding JIAN inhibitor and hydrochlorothiazide Had beta-blockers when appropriate GERD Home h2 carson Did not pass swallow eval. NG tube inserted start tube feeding with Glucerna SCDs With acute left MCA stroke with aphasia and dysphagia. Improving slowly S/p TAVR with stroke thereafter DC plan needs rehab, DC when arrangements are done and cleared by consultants. Lea Nunez MD March 19, 2018 09:18
== END 2018-03-19 13:50 | disposition home health service (06) | DRG 266 ==
LOC: HSDI 08:39 → HDIC 09:47 → HCVI 14:37 → HCPC 03-14 23:03
PROVIDERS: ADMIT Thoracic Surgery (Cardiothoracic Vascular Surgery); ATTEND Internal Medicine
PROC: B246ZZ4 Ultrasonography of Right and Left Heart, Transesophageal (ICD-10-PCS; 2018-03-11)
PROC: B246ZZ4 Ultrasonography of Right and Left Heart, Transesophageal (ICD-10-PCS; 2018-03-11)
PROC: 02RF38Z Replacement of Aortic Valve with Zooplastic Tissue, Percutaneous Approach (ICD-10-PCS; principal; 2018-03-11 11:37)
PROC: 027 Heart and Great Vessels, Dilation (ICD-10-PCS; 2018-03-11 11:37)
PROC: B3101ZZ Fluoroscopy of Thoracic Aorta using Low Osmolar Contrast (ICD-10-PCS; 2018-03-11 11:37)
DX: I35.2 Nonrheumatic aortic (valve) stenosis with insufficiency (principal); I63.512 Cerebral infarction due to unspecified occlusion or stenosis of left middle cerebral artery; I13.0 Hypertensive heart and chronic kidney disease with heart failure and stage 1 through stage 4 chronic kidney disease, or unspecified chronic kidney disease; I50.30 Unspecified diastolic (congestive) heart failure; R47.01 Aphasia; G81.91 Hemiplegia, unspecified affecting right dominant side; E11.22 Type 2 diabetes mellitus with diabetic chronic kidney disease; N18.3 Chronic kidney disease, stage 3 (moderate); I25.2 Old myocardial infarction; I77.89 Other specified disorders of arteries and arterioles; Z00.6 Encounter for examination for normal comparison and control in clinical research program; I70.0 Atherosclerosis of aorta; I25.10 Atherosclerotic heart disease of native coronary artery without angina pectoris; E78.5 Hyperlipidemia, unspecified; N52.9 Male erectile dysfunction, unspecified; Z95.5 Presence of coronary angioplasty implant and graft; Z82.3 Family history of stroke; Z87.891 Personal history of nicotine dependence; K21.9 Gastro-esophageal reflux disease without esophagitis; J43.9 Emphysema, unspecified; R13.10 Dysphagia, unspecified; Z79.82 Long term (current) use of aspirin; Z79.02 Long term (current) use of antithrombotics/antiplatelets; Z79.84 Long term (current) use of oral hypoglycemic drugs
CPT/HCPCS: 33210; 33361; 70450; 70496; 70498; 71045; 80048; 80053; 82550; 82948; 83735; 84100; 84484; 85002; 85025; 85027; 85384; 85610; 85730; 86850; 86900; 86901; 86920; 92986; 93005; 93308; 93312; 93320; 93325; 94150; 94640; 94664; 94667; 94668; C1760; C1769; C1893; G0269; J0131; J0690; J1100; J1644; J1650; J1940; J2250; J2370; J2405; J2710; J2720; J3010; J3475; J3480; J7030; J7050; J7060; Q9967

== ENCOUNTER 2018-03-31 09:52 | Inpatient (IN) | payer OTHER, MEDICARE ==
[2018-03-31] VITALS (14 sets, daily range): BP systolic 122–135; BP diastolic 55–62; PULSE 62–76; RESP 18–20; TEMP 97.5–98.1; O2SAT 95–99
[~2018-03-31] VITALS: Ht 162.6 cm; Wt 74.0 kg
[~2018-03-31 09:52] MED LIST changes: +FURO40TA PO; +LISI10TA3 PO; +ROSU40 PO
[2018-03-31] MEDS: INSULIN ASPART SUPPLEMENTAL SCALE SQ SCH ×4 (10:45→20:00)
[2018-03-31] MEDS ORDERED: SODIUM CHLORIDE 0.9% FLUSH 10 ML FLUSH IV FLUSH PRN (10:45)
[2018-03-31] MEDS ORDERED: ACETAMINOPHEN 325 MG TAB PO PRN (10:45)
[2018-03-31] MEDS ORDERED: NURSING INFORMATION XX SCH (10:45)
[2018-03-31] MEDS ORDERED: CHLORHEXIDINE GLUCONATE 2 % 1 PACK (2 CLOTHS) TOP PRN (10:45)
[2018-03-31] MEDS: SODIUM CHLOR 0.9% 1000 ML INJ 1,000 ML IV SCH ×2 (10:50→18:33)
[2018-03-31] MEDS ORDERED: GLUCAGON 1 MG/ML VIAL OTHER PRN (11:00)
[2018-03-31] MEDS ORDERED: DEXTROSE 50% IN WATER 50 ML VIAL(D50) IV PUSH PRN (11:00)
[2018-03-31] MEDS ORDERED: PILL SPLITTER OTHER PRN (11:00)
[2018-03-31] MEDS: HEPARIN SODIUM - SQ 10,000 UNITS/ML VIAL SQ SCH (12:20)
[2018-03-31 12:28] LABS: ALBUMIN 2.7 GM/DL (3.4-5.0); AST (GOT) 30 U/L (15-37); CALCIUM 9.4 MG/DL (8.5-10.1); CHLORIDE 101 MEQ/L (98-107); CREATININE 6.96 MG/DL (0.60-1.30); GLOMERULAR FILTRATION RATE 8 ML/MIN (>89); GLUCOSE,RANDOM 144 MG/DL (74-106); SODIUM (NA) 140 MEQ/L (136-145)
[2018-03-31 12:29] LABS: ALT (GPT) 43 U/L (12-78)
[2018-03-31 12:31] LABS: AUTOMATED NEUTROPHIL # 5.5 TH/MM3 (1.8-7.7); BASOPHIL # 0.1 TH/MM3 (0-0.2); BASOPHIL % 0.7 % (0.0-2.0); EOSINOPHIL # 0.8 TH/MM3 (0-0.4); EOSINOPHIL % 9.8 % (0.0-4.0); HEMATOCRIT 32.5 % (39.0-51.0); HEMOGLOBIN 10.5 GM/DL (13.0-17.0); LYMPH % 14.2 % (9.0-44.0); LYMPHOCYTE # 1.2 TH/MM3 (1.0-4.8); MEAN CELL VOLUME 90.4 FL (80.0-100.0); MEAN CORPUSCULAR HEMOGLOBIN 29.2 PG (27.0-34.0); MEAN CORPUSCULAR HGB CONC 32.3 % (32.0-36.0); MEAN PLATELET VOLUME 10.7 FL (7.0-11.0); MONO % 9.5 % (0.0-8.0); MONOCYTE # 0.8 TH/MM3 (0-0.9); NEUT % 65.8 % (16.0-70.0); PLATELET COUNT 220 TH/MM3 (150-450); RED BLOOD COUNT 3.59 MIL/MM3 (4.50-5.90); RED CELL DISTRIBUTION WIDTH 16.5 % (11.6-17.2); WHITE BLOOD COUNT 8.4 TH/MM3 (4.0-11.0)
[2018-03-31 12:32] LABS: ALKALINE PHOSPHATASE 180 U/L (45-117); TOTAL BILIRUBIN ADULT 0.7 MG/DL (0.2-1.0); TOTAL PROTEIN 7.3 GM/DL (6.4-8.2)
[2018-03-31 12:46] LABS: BLOOD UREA NITROGEN 162 MG/DL (7-18)
--- NOTE | 2018-03-31 13:02 | PD.CONS ---
[facility] Service Nephrology Consult Requested By Dr. 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 Review of Systems Constitutional: COMPLAINS OF: Fatigue Musculoskeletal: COMPLAINS OF: Muscle aches Neurologic: COMPLAINS OF: Localized weakness, Paresthesias, Speech Problems Past Family Social History Allergies: Coded Allergies: Cicyydr-Fep-Qsg Reductase Inhibitor (Verified Adverse Reaction, Unknown, MUSCLE ACHES, 03/11/18) Past Medical History Aortic stenosis Hypertension Coronary artery disease TAVR CVA HLD Diabetes COPD Past Surgical History T AVR Sternotomy Reported Medications Reported Meds & Active Scripts Active Furosemide 40 Mg Tab 40 Mg PO DAILY Lisinopril 10 Mg Tab 10 Mg PO DAILY Crestor (Rosuvastatin Calcium) 40 Mg Tab 40 Mg PO DAILY Thera M Plus (Multivitamins/Minerals Therapeutic) 1 Tab 1 Tab PO DAILY Dok (Docusate Sodium) 100 Mg Cap 100 Mg PO BID Oxycodone-Acetaminophen 5-325 (Oxycodone HCl/Acetaminophen) 5 Mg-325 Mg Tablet 1 Tab PO Q4H PRN Metoprolol Tartrate 25 Mg Tab 12.5 Mg PO BID Plavix (Clopidogrel Bisulfate) 75 Mg Tab 75 Mg PO DAILY Reported [place]-3 Fish Oil/Vitamin (Fish Oil-Cholecalciferol) 1,000-1,000 Mg Cap 1 Cap PO DAILY Vitamin D3 (Cholecalciferol) 1,000 Unit Tab 2,000 Units PO DAILY Ventolin Hfa 18 GM Inh (Albuterol Sulfate) 90 Mcg/Act Aer 1 Puff INH Q4H PRN Symbicort Inh (Budesonide/Formoterol Fumarate) 160-4.5 Mcg/Act Aero 2 Puff INH Q12HR Ranitidine (Ranitidine HCl) 150 Mg Tab 150 Mg PO DAILY Lisinopril-Hctz 20-12.5 Mg Tab 1 Tab PO DAILY Januvia (Sitagliptin Phosphate) 100 Mg Tab 100 Mg PO DAILY Aspirin DR (Aspirin) 81 Mg Tabdr 81 Mg PO DAILY Active Ordered Medications Current Medications Medications (Trade) Dose Ordered Sig/Yuki Route Start Time Stop Time Status Last Admin Sodium Chloride 1,000 ml @ 125 mls/hr Q8H IV 03/31/18 10:33 03/31/18 10:50 (NS Flush) 2 ml UNSCH PRN IV FLUSH 03/31/18 10:45 (NS Flush) 2 ml BID IV FLUSH 03/31/18 21:00 (Tylenol) 650 mg Q6H PRN PO 03/31/18 10:45 (Pepcid) 20 mg Q12HR PO 03/31/18 21:00 (Duoneb Neb) 1 ampule Q2HR NEB PRN NEB 03/31/18 10:45 (Heparin Inj) 5,000 units Q12H SQ 03/31/18 11:00 03/31/18 12:20 ([facility] Information) 1 Q361D XX 03/31/18 10:45 03/31/18 10:45 (Chlorhexidine 2% Cloth) 3 pack Taper DAILY@04 TOP 04/01/18 04:00 03/28/19 03:59 (Chlorhexidine 2% Cloth) 3 pack UNSCH PRN TOP 03/31/18 10:45 (Ecotrin Ec) 81 mg DAILY PO 04/01/18 09:00 (Symbicort 160-4.5 Mcg Inh) 2 puff Q12HR INH 03/31/18 21:00 (Vitamin D3) 2,000 units DAILY PO 04/01/18 09:00 (Plavix) 75 mg DAILY PO 04/01/18 09:00 (Colace) 100 mg BID PO 03/31/18 21:00 (Lopressor) 12.5 mg BID PO 03/31/18 21:00 (Percocet 5-325 Mg) 1 tab Q4H PRN PO 03/31/18 10:45 (NovoLOG SUPPLEMENTAL SCALE) 1 Q4HR SQ 03/31/18 10:45 (D50w (Vial) Inj) 50 ml UNSCH PRN IV PUSH 03/31/18 11:00 (Glucagon Inj) 1 mg UNSCH PRN OTHER 03/31/18 11:00 (Pill Splitter) 1 ea UNSCH PRN OTHER 03/31/18 11:00 Family History Noncontributory Social History History of smoking 3 pack per day for 40 years quit about 10 years Physical Exam Vital Signs Vital Signs Date Time Temp Pulse Resp B/P (MAP) Pulse Ox O2 Delivery O2 Flow Rate FiO2 03/31/18 11:47 98.0 68 20 122/55 (77) 95 03/31/18 11:00 67 Physical Exam GENERAL: Well-nourished, well-developed patient. SKIN: Warm and dry. HEAD: Normocephalic. EYES: No scleral icterus. No injection or drainage. NECK: Supple, trachea midline. No JVD or lymphadenopathy. CARDIOVASCULAR: Regular rate and rhythm without murmurs, gallops, or rubs. RESPIRATORY: Breath sounds equal bilaterally. No accessory muscle use. GASTROINTESTINAL: Abdomen soft, non-tender, nondistended. EXTREMITIES: No cyanosis, or edema. NEUROLOGICAL: Awake, alert, and oriented with right-sided hemiparesis and dysarthria Laboratory Laboratory Tests Test 03/31/18 11:00 03/31/18 11:40 White Blood Count 8.4 Red Blood Count 3.59 Hemoglobin 10.5 Hematocrit 32.5 Mean Corpuscular Volume 90.4 Mean Corpuscular Hemoglobin 29.2 Mean Corpuscular Hemoglobin Concent 32.3 Red Cell Distribution Width 16.5 Platelet Count 220 Mean Platelet Volume 10.7 Neutrophils (%) (Auto) 65.8 Lymphocytes (%) (Auto) 14.2 Monocytes (%) (Auto) 9.5 Eosinophils (%) (Auto) 9.8 Basophils (%) (Auto) 0.7 Neutrophils # (Auto) 5.5 Lymphocytes # (Auto) 1.2 Monocytes # (Auto) 0.8 Eosinophils # (Auto) 0.8 Basophils # (Auto) 0.1 CBC Comment AUTO DIFF Blood Urea Nitrogen 162 Creatinine 6.96 Random Glucose 144 Total Protein 7.3 Albumin 2.7 Calcium Level 9.4 Magnesium Level 3.0 Alkaline Phosphatase 180 Aspartate Amino Transf (AST/SGOT) 30 Alanine Aminotransferase (ALT/SGPT) 43 Total Bilirubin 0.7 Sodium Level 140 Potassium Level 3.6 Chloride Level 101 Carbon Dioxide Level 24.0 Anion Gap 15 Estimat Glomerular Filtration Rate 8 Lactic Acid Level 1.5 Result Diagram: 03/31/18 1140 03/31/18 1140 Assessment and Plan Problem List: (1) Acute renal failure ICD Codes: N17.9 - Acute kidney failure, unspecified Plan: Patient has prerenal azotemia with a BUN to creatinine ratio of 23.4, he needs to be hydrated Agree with ultrasound of the kidney Avoid nephrotoxins Patient may need to feeding tube placement due to ongoing problems with swallowing History of recent CVA History of TAVR (2) Dehydration ICD Codes: E86.0 - Dehydration Plan: Patient on normal saline at 125 cc an hour (3) S/P TAVR (transcatheter aortic valve replacement) ICD Codes: Z95.2 - Presence of prosthetic heart valve Plan: Recent placement earlier this month (4) CVA (cerebral vascular accident) ICD Codes: I63.9 - Cerebral infarction, unspecified Plan: Continue to monitor May need feeding tube placement Problem Qualifiers (1) CVA (cerebral vascular accident): Chaparro Joyce MD March 31, 2018 13:02
--- NOTE | 2018-03-31 14:10 | HHI.HP ---
[facility] Service Critical Care Medicine Primary Care Physician Kalin Palma MD Admission Diagnosis Diagnosis: (1) Acute on chronic kidney failure Diagnosis: Principal (2) Dehydration Diagnosis: Principal (3) CVA (cerebral vascular accident) Diagnosis: Secondary (4) CAD (coronary artery disease) Diagnosis: Secondary (5) Aortic stenosis Diagnosis: Secondary (6) COPD (chronic obstructive pulmonary disease) Diagnosis: Secondary (7) Diastolic CHF Diagnosis: Secondary Chief Complaint: Acute on chronic renal failure Prerenal azotemia/dehydration Travel History International Travel<30 Days: No Contact w/Intl Traveler <30 Da: No Traveled to Known Affected Are: No History of Present Illness Patient is a 77-year-old male with past medical history significant for coronary artery disease status post PCI, severe aortic stenosis status post TAVR 03/11/18, COPD, who developed acute left MCA stroke status post TAVR. 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 He then underwent TAVR by Dr. Alberto on above date. Post op developed acute CVA, had right facial droop and almost flaccid right upper extremity paralysis, significant weakness of right lower extremity. He gradually made improvement and was able to regain some strength of the upper extremity and was able to walk with a walker. He was eventually discharged to rehab facility on 03/17/2018. Apparently was discharged home after a week, he underwent outpatient lab work today which showed a creatinine approximately 6. With this information patient was admitted directly to the [facility]PCU for further workup. Labs here at [place] showed BUN 162 and creatinine 6.96. Clinical picture is more consistent with dehydration, prerenal azotemia and BUN/ creatinine ratio of 23.5. FeNa pending. gives additional history of poor p.o. intake over the last 1 week. Patient does not have any significant acidosis and no acute indication for hemodialysis at this time. I have ordered 2 L normal saline bolus, and we will continue maintenance fluid at 125 ml per hour. Review of Systems ROS Limitations: Other (Expressive aphasia) Past Family Social History Allergies: Coded Allergies: [id number]-Aqq Reductase Inhibitor (Verified Adverse Reaction, Unknown, MUSCLE ACHES, 03/11/18) Past Medical History Severe aortic valve stenosis s/p TAVR 03/11/18 acute L MCA stroke post TAVR Coronary artery disease Chronic kidney disease COPD, emphysema Diabetes Hyperlipidemia Hypertension Ischemic cardiomyopathy. Past Surgical History TAVR Sternotomy Reported Medications Furosemide 40 Mg Tab 40 Mg PO DAILY Lisinopril 10 Mg Tab 10 Mg PO DAILY Crestor (Rosuvastatin Calcium) 40 Mg Tab 40 Mg PO DAILY Thera M Plus (Multivitamins/Minerals Therapeutic) 1 Tab 1 Tab PO DAILY Dok (Docusate Sodium) 100 Mg Cap 100 Mg PO BID Oxycodone-Acetaminophen 5-325 (Oxycodone HCl/Acetaminophen) 5 Mg-325 Mg Tablet 1 Tab PO Q4H PRN Metoprolol Tartrate 25 Mg Tab 12.5 Mg PO BID Plavix (Clopidogrel Bisulfate) 75 Mg Tab 75 Mg PO DAILY [place]-3 Fish Oil/Vitamin (Fish Oil-Cholecalciferol) 1,000-1,000 Mg Cap 1 Cap PO DAILY Vitamin D3 (Cholecalciferol) 1,000 Unit Tab 2,000 Units PO DAILY Ventolin Hfa 18 GM Inh (Albuterol Sulfate) 90 Mcg/Act Aer 1 Puff INH Q4H PRN Symbicort Inh (Budesonide/Formoterol Fumarate) 160-4.5 Mcg/Act Aero 2 Puff INH Q12HR Ranitidine (Ranitidine HCl) 150 Mg Tab 150 Mg PO DAILY Lisinopril-Hctz 20-12.5 Mg Tab 1 Tab PO DAILY Januvia (Sitagliptin Phosphate) 100 Mg Tab 100 Mg PO DAILY Aspirin DR (Aspirin) 81 Mg Tabdr 81 Mg PO DAILY Active Ordered Medications Reviewed Family History Noncontributory Social History 40 pk yr history quit 10 yrs ago Physical Exam Vital Signs Vital Signs Date Time Temp Pulse Resp B/P (MAP) Pulse Ox O2 Delivery O2 Flow Rate FiO2 03/31/18 13:00 67 03/31/18 12:00 67 03/31/18 11:47 98.0 68 20 122/55 (77) 95 03/31/18 11:00 67 Physical Exam GENERAL: Elderly male, lying in bed, obvious right facial droop HEENT: Normocephalic. Atraumatic. Pupils equal, round, reactive, prominent right facial droop. Oral mucosa is dry NECK: Trachea is midline. There is no JVD. CHEST: Equal chest rise. No wheezes or crackles CARDIOVASCULAR: Normal rate, regular rhythm. Sinus by telemetry. No evidence of significant valvular regurgitation ABDOMEN: Soft, nontender, nondistended. No guarding. MUSCULOSKELETAL: No peripheral edema. Skin is dry NEUROLOGICAL: Patient is alert awake able to state his name but has expressive aphasia and right facial droop. Motor strength 5 out of 5 on the left side 4 out of 5 on the right Laboratory Laboratory Tests Test 03/31/18 11:00 03/31/18 11:40 03/31/18 12:40 Nasal Screen MRSA (PCR) MRSA NOT DETECTED White Blood Count 8.4 Red Blood Count 3.59 Hemoglobin 10.5 Hematocrit 32.5 Mean Corpuscular Volume 90.4 Mean Corpuscular Hemoglobin 29.2 Mean Corpuscular Hemoglobin Concent 32.3 Red Cell Distribution Width 16.5 Platelet Count 220 Mean Platelet Volume 10.7 Neutrophils (%) (Auto) 65.8 Lymphocytes (%) (Auto) 14.2 Monocytes (%) (Auto) 9.5 Eosinophils (%) (Auto) 9.8 Basophils (%) (Auto) 0.7 Neutrophils # (Auto) 5.5 Lymphocytes # (Auto) 1.2 Monocytes # (Auto) 0.8 Eosinophils # (Auto) 0.8 Basophils # (Auto) 0.1 CBC Comment AUTO DIFF Differential Comment AUTO DIFF CONFIRMED Blood Urea Nitrogen 162 Creatinine 6.96 Random Glucose 144 Total Protein 7.3 Albumin 2.7 Calcium Level 9.4 Magnesium Level 3.0 Alkaline Phosphatase 180 Aspartate Amino Transf (AST/SGOT) 30 Alanine Aminotransferase (ALT/SGPT) 43 Total Bilirubin 0.7 Sodium Level 140 Potassium Level 3.6 Chloride Level 101 Carbon Dioxide Level 24.0 Anion Gap 15 Estimat Glomerular Filtration Rate 8 Lactic Acid Level 1.5 Urine Random Sodium 31 Result Diagram: 03/31/18 1140 03/31/18 1140 Imaging Renal US pending Septic Shock Reassessment Septic shock perfusion: reassessment completed Caprini VTE Risk Assessment Caprini VTE Risk Assessment: Mod/High Risk (score >= 2) Caprini Risk Assessment Model Point Value = 1 Point Value = 2 Point Value = 3 Point Value = 5 Age 41-60 Minor surgery BMI > 25 kg/m2 Swollen legs Varicose veins or History of unexplained or recurrent spontaneous Oral contraceptives or hormone replacement Sepsis (< 1 month) Serious lung disease, including pneumonia (< 1 month) Abnormal pulmonary function Acute myocardial infarction Congestive heart failure (< 1 month) History of inflammatory bowel disease Medical patient at bed rest Age 61-74 Arthroscopic surgery Major open surgery (> 45 min) Laparoscopic surgery (> 45 min) Malignancy Confined to bed (> 72 hours) Immobilizing plaster cast Central venous access Age >= 75 History of VTE Family history of VTE Factor V Leiden Prothrombin [id number] Lupus anticoagulant Anticardiolipin antibodies Elevated serum homocysteine Heparin-induced thrombocytopenia Other congenital or acquired thrombophilia Stroke (< 1 month) Elective arthroplasty Hip, pelvis, or leg fracture Acute spinal cord injury (< 1 month) Prophylaxis Regimen Total Risk Factor Score Risk Level Prophylaxis Regimen 0-1 Low Early ambulation 2 Moderate Order ONE of the following: *Sequential Compression Device (SCD) *Heparin 5000 units SQ BID 3-4 Higher Order ONE of the following medications: *Heparin 5000 units SQ TID *Enoxaparin/Lovenox 40 mg SQ daily (WT < 150 kg, CrCl > 30 mL/min) *Enoxaparin/Lovenox 30 mg SQ daily (WT < 150 kg, CrCl > 10-29 mL/min) *Enoxaparin/Lovenox 30 mg SQ BID (WT < 150 kg, CrCl > 30 mL/min) AND/OR *Sequential Compression Device (SCD) 5 or more Highest Order ONE of the following medications: *Heparin 5000 units SQ TID (Preferred with Epidurals) *Enoxaparin/Lovenox 40 mg SQ daily (WT < 150 kg, CrCl > 30 mL/min) *Enoxaparin/Lovenox 30 mg SQ daily (WT < 150 kg, CrCl > 10-29 mL/min) *Enoxaparin/Lovenox 30 mg SQ BID (WT < 150 kg, CrCl > 30 mL/min) AND *Sequential Compression Device (SCD) Assessment and Plan Assessment and Plan A/P Assessment: 77-year-old male status post transcatheter aortic valve replacement , complicated by acute left MCA stroke on 03/11/18 now with acute pre -renal AKF on CKD Left MCA stroke post TAVR 03/11/18 Continue aspirin Plavix Neurology Dr. Rodríguez has seen last admission PT/OT/Speech Status post transcatheter aortic valve replacement 03/11 with common iliac access Dehydration 2 L normal saline bolus and maintenance fluid at 125 mL/h Hold lisinopril and Lasix Continue aspirin Plavix Acute on Chronic kidney disease BUN 162/2.96 with a BUN creatinine ratio is 23.5 Most likely prerenal IV fluids 2 L normal saline bolus and maintenance fluid at 125 mL/h Check UA, check renal ultrasound Nephrology consulted Dr. Joyce COPD Nebs PRN, Aggressive pulmonary toilet Oxygen by nasal cannula to keep SPO2 greater than 90% Hypertension Hold home antihypertensives Hyperlipidemia Hold statins at this time due to severe dehydration and renal failure Diabetes Sliding-scale insulin Coronary artery disease Aspirin, Plavix as above GERD Famotidine, Heparin sq Level 3 new admit Code Status Full Discussed Condition With Dr. Joyce Problem Qualifiers (1) Acute on chronic kidney failure: (2) CVA (cerebral vascular accident): Huma Heard MD March 31, 2018 14:10
[2018-03-31 14:11] LABS: CREATININE, RANDOM URINE 186.6 MG/DL
[2018-03-31] MEDS ORDERED: SODIUM CHLOR 0.9% 1000 ML INJ 1,000 ML IV ONE ×2 (14:15→14:45)
[2018-03-31 14:16] LABS: GLUCOSE,URINE NEG (NEG); URINE COLOR YELLOW (YELLW/STRAW)
[2018-03-31 14:17] LABS: BILIRUBIN, URINE NEGATIVE (NEG); BLOOD, URINE NEG (NEG); KETONE, URINE TRACE mg/dL (NEG); MUCUS URINE FEW /lpf (OCC); NITRITE,URINE NEG (NEG); URINE LEUKOCYTE ESTERASE NEGATIVE (NEG)
[2018-03-31 14:18] LABS: AMORPHOUS SEDIMENT, URINE SMALL; BACTERIA, URINE RARE /hpf
--- NOTE | 2018-03-31 17:29 | RADRPT ---
EXAM DATE: 03/31/2018 1:31 PM EDT AGE/SEX: 77 years / Male INDICATIONS: Acute kidney injury. CLINICAL DATA: This is the patient's initial encounter. Patient reports that signs and symptoms have been present for 1 day and indicates a pain score of 0/10. MEDICAL/SURGICAL HISTORY: . CAD. COPD. CKD. Diabetic. Prostate cancer. None. COMPARISON: No prior [facility] exams available for comparison. MEASUREMENTS: Right Kidney:__ 11.1 x 5.9 x 6.2 cm cm Left Kidney:__ 11.0 x 4.6 x 6.1 cm cm FINDINGS: Right Kidney: Normal in size, shape and echogenicity. No hydronephrosis. Left Kidney: Normal in size, shape and echogenicity. No hydronephrosis. Bladder: Within normal limits given the degree of distension. CONCLUSION: 1. Unremarkable bilateral renal ultrasound. Electronically signed by: Renny Norris MD 03/31/2018 5:28 PM EDT
[2018-03-31] MEDS: BUDESONIDE-FORMOTEROL 160/4.5 MCG INHALER INH SCH (20:35)
[2018-03-31] MEDS: SODIUM CHLORIDE 0.9% FLUSH 10 ML FLUSH IV FLUSH SCH (20:36)
[2018-03-31 20:51] LABS: ALBUMIN 2.2 GM/DL (3.4-5.0); AST (GOT) 32 U/L (15-37); BICARBONATE 22.2 MEQ/L (21.0-32.0); BLOOD UREA NITROGEN 138 MG/DL (7-18); CALCIUM 8.3 MG/DL (8.5-10.1); CHLORIDE 110 MEQ/L (98-107); CREATININE 6.02 MG/DL (0.60-1.30); GLOMERULAR FILTRATION RATE 9 ML/MIN (>89); GLUCOSE,RANDOM 97 MG/DL (74-106); SODIUM (NA) 147 MEQ/L (136-145)
[2018-03-31 20:52] LABS: ALT (GPT) 39 U/L (12-78)
[2018-03-31 20:54] LABS: ALKALINE PHOSPHATASE 158 U/L (45-117); TOTAL BILIRUBIN ADULT 0.7 MG/DL (0.2-1.0); TOTAL PROTEIN 6.3 GM/DL (6.4-8.2)
[2018-03-31] MEDS: FAMOTIDINE 20 MG TAB PO SCH (21:00)
[2018-03-31] MEDS: DOCUSATE SODIUM 100 MG CAP PO SCH (21:00)
[2018-03-31] MEDS: METOPROLOL TARTRATE 25 MG TAB PO SCH (21:00)
[2018-04-01] VITALS (25 sets, daily range): BP systolic 121–144; BP diastolic 57–66; PULSE 60–88; RESP 16–20; TEMP 97.7–98.1; O2SAT 95–98
[2018-04-01] MEDS: HEPARIN SODIUM - SQ 10,000 UNITS/ML VIAL SQ SCH ×3 (00:19→23:43)
[2018-04-01] MEDS: CHLORHEXIDINE GLUCONATE 2 % 1 PACK (2 CLOTHS) TOP SCH (04:00)
[2018-04-01] MEDS: INSULIN ASPART SUPPLEMENTAL SCALE SQ SCH ×7 (04:00→23:49)
[2018-04-01 05:45] LABS: BASOPHIL % 0.6 % (0.0-2.0); EOSINOPHIL # 0.7 TH/MM3 (0-0.4); EOSINOPHIL % 10.9 % (0.0-4.0); HEMATOCRIT 28.1 % (39.0-51.0); HEMOGLOBIN 9.3 GM/DL (13.0-17.0); LYMPH % 17.4 % (9.0-44.0); LYMPHOCYTE # 1.1 TH/MM3 (1.0-4.8); MEAN CELL VOLUME 91.9 FL (80.0-100.0); MEAN CORPUSCULAR HEMOGLOBIN 30.3 PG (27.0-34.0); MEAN CORPUSCULAR HGB CONC 32.9 % (32.0-36.0); MEAN PLATELET VOLUME 10.3 FL (7.0-11.0); MONO % 8.7 % (0.0-8.0); MONOCYTE # 0.6 TH/MM3 (0-0.9); NEUT % 62.4 % (16.0-70.0); PLATELET COUNT 155 TH/MM3 (150-450); RED BLOOD COUNT 3.06 MIL/MM3 (4.50-5.90); RED CELL DISTRIBUTION WIDTH 15.9 % (11.6-17.2); WHITE BLOOD COUNT 6.5 TH/MM3 (4.0-11.0)
[2018-04-01] MEDS: SODIUM CHLOR 0.9% 1000 ML INJ 1,000 ML IV SCH (05:46)
[2018-04-01 06:08] LABS: ALBUMIN 2.2 GM/DL (3.4-5.0); ALKALINE PHOSPHATASE 149 U/L (45-117); ALT (GPT) 37 U/L (12-78); AST (GOT) 30 U/L (15-37); BICARBONATE 20.9 MEQ/L (21.0-32.0); BLOOD UREA NITROGEN 121 MG/DL (7-18); CALCIUM 8.2 MG/DL (8.5-10.1); CHLORIDE 114 MEQ/L (98-107); CREATININE 5.47 MG/DL (0.60-1.30); GLOMERULAR FILTRATION RATE 10 ML/MIN (>89); GLUCOSE,RANDOM 87 MG/DL (74-106); MAGNESIUM 2.4 MG/DL (1.5-2.5); PHOSPHORUS 4.3 MG/DL (2.5-4.9); SODIUM (NA) 150 MEQ/L (136-145); TOTAL BILIRUBIN ADULT 0.7 MG/DL (0.2-1.0); TOTAL PROTEIN 6.1 GM/DL (6.4-8.2)
[2018-04-01] MEDS: SODIUM CHLOR 0.45% 1000 ML INJ 1,000 ML IV SCH ×4 (06:45→22:20)
--- NOTE | 2018-04-01 08:37 | HHI.NPPN ---
Subjective History of Present Illness 77-year-old with CVA right hemiparesis history of TAVR Objective Data Data Vital Signs Date Time Temp Pulse Resp B/P (MAP) Pulse Ox O2 Delivery O2 Flow Rate FiO2 04/01/18 08:00 76 04/01/18 07:00 98.1 85 20 144/62 (89) 96 04/01/18 07:00 88 04/01/18 06:01 74 04/01/18 05:00 79 04/01/18 04:00 75 04/01/18 04:00 98.0 74 16 127/57 (80) 97 04/01/18 03:00 77 04/01/18 02:00 73 04/01/18 01:30 70 04/01/18 01:00 72 04/01/18 00:00 98.0 73 18 121/58 (79) 97 04/01/18 00:00 72 03/31/18 23:00 66 03/31/18 22:00 62 03/31/18 21:00 62 03/31/18 20:00 97.5 74 18 129/56 (80) 97 03/31/18 20:00 76 03/31/18 19:00 66 03/31/18 18:00 74 03/31/18 17:00 73 03/31/18 16:00 74 03/31/18 15:00 98.1 69 18 135/62 (86) 99 03/31/18 15:00 68 03/31/18 14:00 66 03/31/18 13:00 67 03/31/18 12:00 67 03/31/18 11:47 98.0 68 20 122/55 (77) 95 03/31/18 11:00 67 -: 04/01/18 0525 04/01/18 0525 Microbiology 03/31/18 Urine Culture, Received Pending Physical Exam General Appearance: Well Developed, Well Nourished Pulmonary Resp Exam: Clear Bilaterally Cardiology CV Exam: Regular, Normal Sinus Rhythm Gastrointestinal/Abdomen GI Exam: Soft, Non-Tender, Bowel Sounds Present Extremeties Extremities Exam: No Edema Neurologic Neuro Exam: Alert, Awake Assessment/Plan Problem List: (1) Acute renal failure ICD Codes: N17.9 - Acute kidney failure, unspecified Plan: Patient has improvement creatinine declined to 5.4 continue to hydrate Kidney ultrasound was unremarkable Avoid nephrotoxins Patient may need to feeding tube placement due to ongoing problems with swallowing History of recent CVA History of TAVR (2) Dehydration ICD Codes: E86.0 - Dehydration Plan: Patient on normal saline at 150 cc an hour (3) S/P TAVR (transcatheter aortic valve replacement) ICD Codes: Z95.2 - Presence of prosthetic heart valve Plan: Recent placement earlier this month (4) CVA (cerebral vascular accident) ICD Codes: I63.9 - Cerebral infarction, unspecified Plan: Continue to monitor May need feeding tube placement Problem Qualifiers (1) CVA (cerebral vascular accident): Chaparro Joyce MD April 01, 2018 08:37
[2018-04-01] MEDS: ASPIRIN EC 81 MG TABEC PO SCH ×2 (08:40→08:48)
[2018-04-01] MEDS: SODIUM CHLORIDE 0.9% FLUSH 10 ML FLUSH IV FLUSH SCH ×2 (08:40→20:14)
[2018-04-01] MEDS: METOPROLOL TARTRATE 25 MG TAB PO SCH ×3 (08:40→20:14)
[2018-04-01] MEDS: DOCUSATE SODIUM 100 MG CAP PO SCH ×2 (08:40→20:14)
[2018-04-01] MEDS: BUDESONIDE-FORMOTEROL 160/4.5 MCG INHALER INH SCH ×2 (08:40→20:14)
[2018-04-01] MEDS: FAMOTIDINE 20 MG TAB PO SCH ×3 (08:41→20:15)
[2018-04-01] MEDS: CLOPIDOGREL 75 MG TAB PO SCH ×2 (08:41→08:48)
[2018-04-01] MEDS: CHOLECALCIFEROL (VIT D3) 1000 UNIT TAB PO SCH ×2 (08:41→08:49)
--- NOTE | 2018-04-01 08:45 | PD.CONS ---
[facility] Service cardiology Consult Requested By Reason for Consult recent TAVR Primary Care Physician Kalin Palma MD History of Present Illness This is a 77 yo M with CAD, COPD, CKD, CHF and severe who recently underwent TAVR on 03/11/18. 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 He apparently stayed there for one week and then went home. Outpatient labs showed an elevated creatinine of 6 and he was [place] [facility] [place]. He reports having poor oral intake in the past few weeks. Creatinine and BUN are improving with IVF. He has been compliant with asa and plavix. at bedside. She reports he's had difficulty swallowing with poor oral intake. He denies chest pain, sob or palpitations. (Lisa Ellis) Review of Systems Consitutional: DENIES: Fever, Chills, Weight gain Respiratory: DENIES: Snoring, Shortness of breath, Wheezing, Sputum production Cardiovascular: DENIES: Chest pain, Palpitations, Syncope, Tachycardia Gastrointestinal: DENIES: Nausea, Vomiting, Change in bowel habits, Reflux, Bloody stools, Melena (Lisa Ellis) Past Family Social History Allergies: Coded Allergies: [id number] Reductase Inhibitor (Verified Adverse Reaction, Unknown, MUSCLE ACHES, 03/11/18) Past Medical History Severe aortic valve stenosis s/p TAVR 03/11/18 acute L MCA stroke post TAVR Coronary artery disease Chronic kidney disease COPD, emphysema Diabetes Hyperlipidemia Hypertension Ischemic cardiomyopathy. Past Surgical History TAVR Sternotomy Reported Medications Reported Meds & Active Scripts Active Furosemide 40 Mg Tab 40 Mg PO DAILY Lisinopril 10 Mg Tab 10 Mg PO DAILY Crestor (Rosuvastatin Calcium) 40 Mg Tab 40 Mg PO DAILY Thera M Plus (Multivitamins/Minerals Therapeutic) 1 Tab 1 Tab PO DAILY Dok (Docusate Sodium) 100 Mg Cap 100 Mg PO BID Oxycodone-Acetaminophen 5-325 (Oxycodone HCl/Acetaminophen) 5 Mg-325 Mg Tablet 1 Tab PO Q4H PRN Metoprolol Tartrate 25 Mg Tab 12.5 Mg PO BID Plavix (Clopidogrel Bisulfate) 75 Mg Tab 75 Mg PO DAILY Reported [place]-3 Fish Oil/Vitamin (Fish Oil-Cholecalciferol) 1,000-1,000 Mg Cap 1 Cap PO DAILY Vitamin D3 (Cholecalciferol) 1,000 Unit Tab 2,000 Units PO DAILY Ventolin Hfa 18 GM Inh (Albuterol Sulfate) 90 Mcg/Act Aer 1 Puff INH Q4H PRN Symbicort Inh (Budesonide/Formoterol Fumarate) 160-4.5 Mcg/Act Aero 2 Puff INH Q12HR Ranitidine (Ranitidine HCl) 150 Mg Tab 150 Mg PO DAILY Lisinopril-Hctz 20-12.5 Mg Tab 1 Tab PO DAILY Januvia (Sitagliptin Phosphate) 100 Mg Tab 100 Mg PO DAILY Aspirin DR (Aspirin) 81 Mg Tabdr 81 Mg PO DAILY Active Ordered Medications Current Medications Medications (Trade) Dose Ordered Sig/Yuki Route Start Time Stop Time Status Last Admin (NS Flush) 2 ml UNSCH PRN IV FLUSH 03/31/18 10:45 (NS Flush) 2 ml BID IV FLUSH 03/31/18 21:00 03/31/18 20:36 (Tylenol) 650 mg Q6H PRN PO 03/31/18 10:45 (Pepcid) 20 mg Q12HR PO 03/31/18 21:00 (Duoneb Neb) 1 ampule Q2HR NEB PRN NEB 03/31/18 10:45 (Heparin Inj) 5,000 units Q12H SQ 03/31/18 11:00 04/01/18 00:19 ([facility] [place] [facility]) 1 Q361D XX 03/31/18 10:45 03/31/18 10:45 (Chlorhexidine 2% Cloth) 3 pack Taper DAILY@04 TOP 04/01/18 04:00 03/28/19 03:59 (Chlorhexidine 2% Cloth) 3 pack UNSCH PRN TOP 03/31/18 10:45 (Ecotrin Ec) 81 mg DAILY PO 04/01/18 09:00 (Symbicort 160-4.5 Mcg Inh) 2 puff Q12HR INH 03/31/18 21:00 03/31/18 20:35 (Vitamin D3) 2,000 units DAILY PO 04/01/18 09:00 (Plavix) 75 mg DAILY PO 04/01/18 09:00 (Colace) 100 mg BID PO 03/31/18 21:00 (Lopressor) 12.5 mg BID PO 03/31/18 21:00 (Percocet 5-325 Mg) 1 tab Q4H PRN PO 03/31/18 10:45 (NovoLOG SUPPLEMENTAL SCALE) 1 Q4HR SQ 03/31/18 10:45 (D50w (Vial) Inj) 50 ml UNSCH PRN IV PUSH 03/31/18 11:00 (Glucagon Inj) 1 mg UNSCH PRN OTHER 03/31/18 11:00 (Pill Splitter) 1 ea UNSCH PRN OTHER 03/31/18 11:00 Sodium Chloride 1,000 ml @ 150 mls/hr Q6H40M IV 04/01/18 06:45 Family History Noncontributory Social History 40 pk yr history quit 10 yrs ago (Lisa Ellis) Physical Exam Vital Signs Vital Signs Date Time Temp Pulse Resp B/P (MAP) Pulse Ox O2 Delivery O2 Flow Rate FiO2 04/01/18 08:00 76 04/01/18 07:00 98.1 85 20 144/62 (89) 96 04/01/18 07:00 88 04/01/18 06:01 74 04/01/18 05:00 79 04/01/18 04:00 75 04/01/18 04:00 98.0 74 16 127/57 (80) 97 04/01/18 03:00 77 04/01/18 02:00 73 04/01/18 01:30 70 04/01/18 01:00 72 04/01/18 00:00 98.0 73 18 121/58 (79) 97 04/01/18 00:00 72 03/31/18 23:00 66 03/31/18 22:00 62 03/31/18 21:00 62 03/31/18 20:00 97.5 74 18 129/56 (80) 97 03/31/18 20:00 76 03/31/18 19:00 66 03/31/18 18:00 74 03/31/18 17:00 73 03/31/18 16:00 74 03/31/18 15:00 98.1 69 18 135/62 (86) 99 03/31/18 15:00 68 03/31/18 14:00 66 03/31/18 13:00 67 03/31/18 12:00 67 03/31/18 11:47 98.0 68 20 122/55 (77) 95 03/31/18 11:00 67 Laboratory Laboratory Tests Test 03/31/18 11:00 03/31/18 11:40 03/31/18 12:40 03/31/18 20:02 Nasal Screen MRSA (PCR) MRSA NOT DETECTED White Blood Count 8.4 Red Blood Count 3.59 Hemoglobin 10.5 Hematocrit 32.5 Mean Corpuscular Volume 90.4 Mean Corpuscular Hemoglobin 29.2 Mean Corpuscular Hemoglobin Concent 32.3 Red Cell Distribution Width 16.5 Platelet Count 220 Mean Platelet Volume 10.7 Neutrophils (%) (Auto) 65.8 Lymphocytes (%) (Auto) 14.2 Monocytes (%) (Auto) 9.5 Eosinophils (%) (Auto) 9.8 Basophils (%) (Auto) 0.7 Neutrophils # (Auto) 5.5 Lymphocytes # (Auto) 1.2 Monocytes # (Auto) 0.8 Eosinophils # (Auto) 0.8 Basophils # (Auto) 0.1 CBC Comment AUTO DIFF Differential Comment AUTO DIFF CONFIRMED Blood Urea Nitrogen 162 138 Creatinine 6.96 6.02 Random Glucose 144 97 Total Protein 7.3 6.3 Albumin 2.7 2.2 Calcium Level 9.4 8.3 Magnesium Level 3.0 Alkaline Phosphatase 180 158 Aspartate Amino Transf (AST/SGOT) 30 32 Alanine Aminotransferase (ALT/SGPT) 43 39 Total Bilirubin 0.7 0.7 Sodium Level 140 147 Potassium Level 3.6 3.6 Chloride Level 101 110 Carbon Dioxide Level 24.0 22.2 Anion Gap 15 15 Estimat Glomerular Filtration Rate 8 9 Lactic Acid Level 1.5 Urine Color YELLOW Urine Turbidity CLOUDY Urine pH 5.0 Urine Specific [place] 1.015 Urine Protein 30 Urine Glucose (UA) NEG Urine Ketones TRACE Urine Occult Blood NEG Urine Nitrite NEG Urine Bilirubin NEGATIVE Urine Urobilinogen 2.0 Urine Leukocyte Esterase NEGATIVE Urine RBC 1 Urine WBC 3 Urine Amorphous Sediment SMALL Urine Bacteria RARE Urine Mucus FEW Microscopic Urinalysis Comment CATH-CULTURE IND Urine Random Creatinine 186.6 Urine Random Sodium 31 Test 04/01/18 05:25 White Blood Count 6.5 Red Blood Count 3.06 Hemoglobin 9.3 Hematocrit 28.1 Mean Corpuscular Volume 91.9 Mean Corpuscular Hemoglobin 30.3 Mean Corpuscular Hemoglobin Concent 32.9 Red Cell Distribution Width 15.9 Platelet Count 155 Mean Platelet Volume 10.3 Neutrophils (%) (Auto) 62.4 Lymphocytes (%) (Auto) 17.4 Monocytes (%) (Auto) 8.7 Eosinophils (%) (Auto) 10.9 Basophils (%) (Auto) 0.6 Neutrophils # (Auto) 4.0 Lymphocytes # (Auto) 1.1 Monocytes # (Auto) 0.6 Eosinophils # (Auto) 0.7 Basophils # (Auto) 0.0 CBC Comment DIFF FINAL Differential Comment Blood Urea Nitrogen 121 Creatinine 5.47 Random Glucose 87 Total Protein 6.1 Albumin 2.2 Calcium Level 8.2 Phosphorus Level 4.3 Magnesium Level 2.4 Alkaline Phosphatase 149 Aspartate Amino Transf (AST/SGOT) 30 Alanine Aminotransferase (ALT/SGPT) 37 Total Bilirubin 0.7 Sodium Level 150 Potassium Level 3.8 Chloride Level 114 Carbon Dioxide Level 20.9 Anion Gap 15 Estimat Glomerular Filtration Rate 10 Date/Time Source Procedure Growth Status 03/31/18 12:40 Urine Catheterized Urine Urine Culture Pending Received (Lisa Ellis) Result Diagram: 04/01/18 0525 04/01/18 0525 Imaging Last 48 hours Impressions Renal Ultrasound 03/31/18 1247 Signed Impressions: CONCLUSION: (Lisa Ellis) Assessment and Plan Problem List: (1) Dehydration ICD Codes: E86.0 - Dehydration (2) Aortic stenosis ICD Codes: I35.0 - Nonrheumatic aortic (valve) stenosis (3) CAD (coronary artery disease) ICD Codes: I25.10 - Atherosclerotic heart disease of [place] coronary artery without angina pectoris (4) Diastolic CHF ICD Codes: I50.30 - Unspecified diastolic (congestive) heart failure (5) Acute on chronic kidney failure ICD Codes: N17.9 - Acute kidney failure, unspecified; N18.9 - Chronic kidney disease, unspecified Assessment and Plan 77 yo M with CAD, COPD, CKD, CHF and severe who recently underwent TAVR on . 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 He apparently stayed there for one week and then went home. Outpatient labs showed an elevated creatinine of 6 and he was [place] [facility] [place] He reports having poor oral intake in the past few weeks. Creatinine and BUN are improving with IVF. He has been compliant with asa and plavix. He denies chest pain, sob or palpitations. severe - s/p TAVR 03/11/18 no chest pain cont asa, plavix, bb EF 65-70% 6-7 beat NSVT on telemetry overnight, consider increasing bb dose if SBP will allow ARF- nephrology following, dehydrated. renal function improving with IVF dysphagia with poor oral intake (Lisa Ellis) Assessment and Plan continue gentle hydration scrotal swelling. elevate scrotum. NSVT monitor tele. follow electrolytes. EF normal. titrate BB to 25 mg BID encourage PT/OT/.Speech therapy. ambulate with assist. Diet (Ty Alberto MD) Problem Qualifiers (1) Acute on chronic kidney failure: Lisa Ellis April 01, 2018 08:45 Ty Alberto MD April 01, 2018 15:19
[2018-04-01] MEDS ORDERED: NON-FORMULARY DRUG (Fish Oil-Cholecalciferol (Omega-3 Fish Oil/Vitamin) 1 CAP) PO SCH (09:00)
--- NOTE | 2018-04-01 10:32 | HHI.CCPN ---
Subjective Remarks/Hospital Course Hospital Course: Patient is a 77-year-old male with past medical history significant for coronary artery disease status post PCI, severe aortic stenosis status post TAVR 03/11/18, COPD, who developed acute left MCA stroke status post TAVR. 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 He then underwent TAVR by Dr. Alberto on above date. Post op developed acute CVA, had right facial droop and almost flaccid right upper extremity paralysis, significant weakness of right lower extremity. He gradually made improvement and was able to regain some strength of the upper extremity and was able to walk with a walker. He was eventually discharged to rehab facility on 03/17/2018. Apparently was discharged home after a week, he underwent outpatient lab work today which showed a creatinine approximately 6. With this information patient was admitted directly to the CPCU for further workup. Labs here at [place] showed BUN 162 and creatinine 6.96. Clinical picture is more consistent with dehydration, prerenal azotemia and BUN/ creatinine ratio of 23.5. FeNa pending. gives additional history of poor p.o. intake over the last 1 week. Patient does not have any significant acidosis and no acute indication for hemodialysis at this time. I have ordered 2 L normal saline bolus, and we will continue maintenance fluid at 125 ml per hour. Subjective: 04/01: resting comfortably. Cr improving slowly. very dehydrated and continues to appear volume deplete. not taking adequate po. Objective Vital Signs Date Time Temp Pulse Resp B/P (MAP) Pulse Ox O2 Delivery O2 Flow Rate FiO2 04/01/18 10:00 62 04/01/18 07:00 98.1 20 144/62 (89) 96 Intake and Output 04/01/18 04/01/18 04/02/18 08:00 16:00 00:00 Intake Total 1500 ml Output Total 850 ml Balance 650 ml Result Diagram: 04/01/18 0525 04/01/18 0525 Imaging Renal US pending Objective Remarks GENERAL: Elderly male, lying in bed, obvious right facial droop HEENT: Normocephalic. Atraumatic. Pupils equal, round, reactive, prominent right facial droop. Oral mucosa is dry NECK: Trachea is midline. There is no JVD. CHEST: Equal chest rise. No wheezes or crackles CARDIOVASCULAR: Normal rate, regular rhythm. Sinus by telemetry. No evidence of significant valvular regurgitation ABDOMEN: Soft, nontender, nondistended. No guarding. MUSCULOSKELETAL: No peripheral edema. Skin is dry NEUROLOGICAL: Patient is alert awake able to state his name but has expressive aphasia and right facial droop. Motor strength 5 out of 5 on the left side 4 out of 5 on the right A/P Assessment and Plan A/P Assessment: 77-year-old male status post transcatheter aortic valve replacement , complicated by acute left MCA stroke on 03/11/18 now with acute pre -renal AKF on CKD. some improvements, although remains dehydrated. continue ivf. speech consult for calorie counts and re-eval of swallowing function. Left MCA stroke post TAVR 03/11/18 Continue aspirin Plavix Neurology Dr. Rodríguez has seen last admission PT/OT/Speech Status post transcatheter aortic valve replacement 03/11 with common iliac access Dehydration change to 1/2 NS at 150 cc/hr. Hold lisinopril and Lasix Continue aspirin Plavix Poor PO intake - speech eval for swallowing and dietary for calorie counting. Acute on Chronic kidney disease Most likely prerenal continue ivf. renal u/s: normal. Nephrology consulted Dr. Joyce COPD Nebs PRN, Aggressive pulmonary toilet Oxygen by nasal cannula to keep SPO2 greater than 90% Hypertension Hold home antihypertensives Hyperlipidemia Hold statins at this time due to severe dehydration and renal failure Diabetes Sliding-scale insulin Coronary artery disease Aspirin, Plavix as above GERD Famotidine, Heparin sq Dispo: must remain inpatient as we monitor renal function. Fidel Chacko MD April 01, 2018 10:32
[2018-04-01] MEDS: oxyCODONE/ACETAMINOPHEN 5 MG/325 MG TAB PO PRN (12:47)
[2018-04-02] VITALS (25 sets, daily range): BP systolic 60–148; BP diastolic 59–68; PULSE 58–79; RESP 18–20; TEMP 97.8–98.4; O2SAT 96–100
[2018-04-02] MEDS: CHLORHEXIDINE GLUCONATE 2 % 1 PACK (2 CLOTHS) TOP SCH (04:00)
[2018-04-02] MEDS: INSULIN ASPART SUPPLEMENTAL SCALE SQ SCH ×6 (04:00→23:25)
[2018-04-02] MEDS: BUDESONIDE-FORMOTEROL 160/4.5 MCG INHALER INH SCH ×2 (08:33→21:00)
[2018-04-02] MEDS: SODIUM CHLORIDE 0.9% FLUSH 10 ML FLUSH IV FLUSH SCH ×2 (08:33→20:50)
[2018-04-02] MEDS: FAMOTIDINE 20 MG TAB PO SCH ×2 (08:34→20:50)
[2018-04-02] MEDS: CLOPIDOGREL 75 MG TAB PO SCH (08:34)
[2018-04-02] MEDS: CHOLECALCIFEROL (VIT D3) 1000 UNIT TAB PO SCH (08:34)
[2018-04-02] MEDS: ASPIRIN EC 81 MG TABEC PO SCH (08:34)
[2018-04-02] MEDS: METOPROLOL TARTRATE 25 MG TAB PO SCH ×2 (08:34→20:50)
[2018-04-02] MEDS: DOCUSATE SODIUM 100 MG CAP PO SCH ×3 (08:35→20:54)
[2018-04-02 09:59] LABS: ALBUMIN 2.3 GM/DL (3.4-5.0); ALKALINE PHOSPHATASE 164 U/L (45-117); ALT (GPT) 39 U/L (12-78); AST (GOT) 33 U/L (15-37); BICARBONATE 23.6 MEQ/L (21.0-32.0); BLOOD UREA NITROGEN 89 MG/DL (7-18); CALCIUM 8.3 MG/DL (8.5-10.1); CHLORIDE 112 MEQ/L (98-107); CREATININE 4.11 MG/DL (0.60-1.30); GLOMERULAR FILTRATION RATE 14 ML/MIN (>89); GLUCOSE,RANDOM 111 MG/DL (74-106); SODIUM (NA) 146 MEQ/L (136-145); TOTAL BILIRUBIN ADULT 0.7 MG/DL (0.2-1.0); TOTAL PROTEIN 6.7 GM/DL (6.4-8.2)
--- NOTE | 2018-04-02 10:16 | HHI.CCPN ---
Subjective Remarks/Hospital Course Hospital Course: Patient is a 77-year-old male with past medical history significant for coronary artery disease status post PCI, severe aortic stenosis status post TAVR 03/11/18, COPD, who developed acute left MCA stroke status post TAVR. 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 He then underwent TAVR by Dr. Alberto on above date. Post op developed acute CVA, had right facial droop and almost flaccid right upper extremity paralysis, significant weakness of right lower extremity. He gradually made improvement and was able to regain some strength of the upper extremity and was able to walk with a walker. He was eventually discharged to rehab facility on 03/17/2018. Apparently was discharged home after a week, he underwent outpatient lab work today which showed a creatinine approximately 6. With this information patient was admitted directly to the CPCU for further workup. Labs here at [place] showed BUN 162 and creatinine 6.96. Clinical picture is more consistent with dehydration, prerenal azotemia and BUN/ creatinine ratio of 23.5. FeNa pending. gives additional history of poor p.o. intake over the last 1 week. Patient does not have any significant acidosis and no acute indication for hemodialysis at this time. I have ordered 2 L normal saline bolus, and we will continue maintenance fluid at 125 ml per hour. Subjective: 04/01: resting comfortably. Cr improving slowly. very dehydrated and continues to appear volume deplete. not taking adequate po. 04/02: Sitting up in chair good urine output. BUN/creatinine improved 89/4.11, sodium 146. Continue IV fluid half-normal saline but reduce rate to 100 mL/h. tolerating p.o. intake better now per at bedside Objective Vital Signs Date Time Temp Pulse Resp B/P (MAP) Pulse Ox O2 Delivery O2 Flow Rate FiO2 04/02/18 10:00 59 04/02/18 08:00 98.2 20 148/65 (92) 97 04/02/18 08:00 Room Air Intake and Output 04/02/18 04/02/18 04/03/18 08:00 16:00 00:00 Intake Total 1000 ml Output Total 750 ml Balance 250 ml Result Diagram: 04/01/18 0525 04/02/18 0911 Other Results Microbiology Date/Time Source Procedure Growth Status 03/31/18 12:40 Urine Catheterized Urine Urine Culture - Final NO GROWTH IN 48 HOURS. Complete Imaging Renal US pending Objective Remarks GENERAL: Elderly male,sitting up in chair, obvious right facial droop HEENT: Normocephalic. Atraumatic. Pupils equal, round, reactive, prominent right facial droop. Oral mucosa is dry NECK: Trachea is midline. There is no JVD. CHEST: Equal chest rise. No wheezes or crackles CARDIOVASCULAR: Normal rate, regular rhythm. Sinus by telemetry. No evidence of significant valvular regurgitation ABDOMEN: Soft, nontender, nondistended. No guarding. MUSCULOSKELETAL: No peripheral edema. Skin is dry NEUROLOGICAL: Patient is alert awake able to state his name but has expressive aphasia and right facial droop. Motor strength 5 out of 5 on the left side 4 out of 5 on the right A/P Assessment and Plan A/P Assessment: 77-year-old male status post transcatheter aortic valve replacement , complicated by acute left MCA stroke on 03/11/18 now with acute pre -renal AKF on CKD. some improvements, although remains dehydrated. continue ivf. speech consult for calorie counts and re-eval of swallowing function. Left MCA stroke post TAVR 03/11/18 Continue aspirin Plavix Neurology Dr. Rodríguez has seen last admission PT/OT/Speech Status post transcatheter aortic valve replacement 03/11 with common iliac access Dehydration On 11/11 NS at 150 cc/hr. Reduce rate to 100 ml per hour with improved PO intake Holding lisinopril and Lasix Continue aspirin Plavix Poor PO intake - speech eval for swallowing and dietary for calorie counting. -P.o. intake improving per Acute on Chronic kidney disease Most likely prerenal continue ivf. renal u/s: normal. Nephrology Dr. Joyce COPD Nebs PRN, Aggressive pulmonary toilet. Add EzPAP, acapella Oxygen by nasal cannula to keep SPO2 greater than 90% Hypertension Hold home antihypertensives Hyperlipidemia Hold statins at this time due to severe dehydration and renal failure Diabetes Sliding-scale insulin Coronary artery disease Aspirin, Plavix as above GERD Famotidine, Heparin sq Dispo: must remain inpatient as we monitor renal function. Huma Heard MD April 02, 2018 10:16
[2018-04-02] MEDS: HEPARIN SODIUM - SQ 10,000 UNITS/ML VIAL SQ SCH ×2 (10:58→23:25)
--- NOTE | 2018-04-02 17:30 | HHI.NPPN ---
Subjective History of Present Illness 77-year-old with CVA right hemiparesis history of TAVR Objective Data Data Vital Signs Date Time Temp Pulse Resp B/P (MAP) Pulse Ox O2 Delivery O2 Flow Rate FiO2 04/02/18 16:00 71 04/02/18 15:00 75 04/02/18 15:00 98.1 62 18 60/61 (61) 100 04/02/18 14:00 73 04/02/18 13:00 63 04/02/18 12:00 73 04/02/18 11:00 59 04/02/18 11:00 98.4 68 20 133/61 (85) 98 04/02/18 10:00 59 04/02/18 09:00 71 04/02/18 08:00 98.2 79 20 148/65 (92) 97 04/02/18 08:00 97 Room Air 04/02/18 08:00 71 04/02/18 07:00 61 04/02/18 06:00 64 04/02/18 05:00 69 04/02/18 04:00 60 04/02/18 04:00 Room Air 04/02/18 04:00 98.1 70 18 132/62 (85) 100 04/02/18 03:00 74 04/02/18 02:00 61 04/02/18 01:00 58 04/02/18 00:00 60 04/02/18 00:00 Room Air 04/02/18 00:00 98.1 64 20 143/68 (93) 100 04/01/18 23:00 64 04/01/18 22:00 64 04/01/18 21:00 65 04/01/18 20:00 Room Air 04/01/18 20:00 77 04/01/18 20:00 97.7 73 20 141/66 (91) 98 04/01/18 19:00 66 04/01/18 18:00 71 -: 04/01/18 0525 04/02/18 0911 Physical Exam General Appearance: Well Developed, Well Nourished Pulmonary Resp Exam: Clear Bilaterally Cardiology CV Exam: Regular, Normal Sinus Rhythm Gastrointestinal/Abdomen GI Exam: Soft, Non-Tender, Bowel Sounds Present Extremeties Extremities Exam: No Edema Neurologic Neuro Exam: Alert, Awake Assessment/Plan Problem List: (1) Acute renal failure ICD Codes: N17.9 - Acute kidney failure, unspecified Plan: Patient has improvement creatinine declined to 4.11 continue to hydrate Kidney ultrasound was unremarkable Avoid nephrotoxins Patient may need to feeding tube placement due to ongoing problems with swallowing History of recent CVA History of TAVR (2) Dehydration ICD Codes: E86.0 - Dehydration Plan: Patient on normal saline at 150 cc an hour (3) S/P TAVR (transcatheter aortic valve replacement) ICD Codes: Z95.2 - Presence of prosthetic heart valve Plan: Recent placement earlier this month (4) CVA (cerebral vascular accident) ICD Codes: I63.9 - Cerebral infarction, unspecified Plan: Continue to monitor May need feeding tube placement Problem Qualifiers (1) CVA (cerebral vascular accident): Chaparro Joyce MD April 02, 2018 17:30
[2018-04-02] MEDS: SODIUM CHLOR 0.45% 1000 ML INJ 1,000 ML IV SCH ×2 (19:00→23:42)
[2018-04-03] VITALS (26 sets, daily range): BP systolic 121–156; BP diastolic 58–70; PULSE 63–77; RESP 18–20; TEMP 97.6–98.7; O2SAT 97–100
[2018-04-03] MEDS: CHLORHEXIDINE GLUCONATE 2 % 1 PACK (2 CLOTHS) TOP SCH (03:36)
[2018-04-03] MEDS: INSULIN ASPART SUPPLEMENTAL SCALE SQ SCH ×5 (03:36→20:54)
[2018-04-03 03:58] LABS: CALCIUM 7.9 MG/DL (8.5-10.1); CREATININE 3.36 MG/DL (0.60-1.30)
--- NOTE | 2018-04-03 07:49 | HHI.CCPN ---
Subjective Remarks/Hospital Course Hospital Course: Patient is a 77-year-old male with past medical history significant for coronary artery disease status post PCI, severe aortic stenosis status post TAVR 03/11/18, COPD, who developed acute left MCA stroke status post TAVR. 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 He then underwent TAVR by Dr. Alberto on above date. Post op developed acute CVA, had right facial droop and almost flaccid right upper extremity paralysis, significant weakness of right lower extremity. He gradually made improvement and was able to regain some strength of the upper extremity and was able to walk with a walker. He was eventually discharged to rehab facility on 03/17/2018. Apparently was discharged home after a week, he underwent outpatient lab work today which showed a creatinine approximately 6. With this information patient was admitted directly to the CPCU for further workup. Labs here at [facility] showed BUN 162 and creatinine 6.96. Clinical picture is more consistent with dehydration, prerenal azotemia and BUN/ creatinine ratio of 23.5. FeNa pending. gives additional history of poor p.o. intake over the last 1 week. Patient does not have any significant acidosis and no acute indication for hemodialysis at this time. I have ordered 2 L normal saline bolus, and we will continue maintenance fluid at 125 ml per hour. Subjective: 04/01: resting comfortably. Cr improving slowly. very dehydrated and continues to appear volume deplete. not taking adequate po. 04/02: Sitting up in chair good urine output. BUN/creatinine improved 89/4.11, sodium 146. Continue IV fluid half-normal saline but reduce rate to 100 mL/h. tolerating p.o. intake better now per at bedside 04/03: clinically improving. resting comfortably. denies complaints. ROS negative. Cr continues to slowly come down. sodium remains elevated: likely poor renal ability to excrete sodium in the setting of resolving DOREEN. although physical therapy recommends home with home health, OT recommends OT at rehab, and given that he became severely dehydrated at home, may need to consider inpatient rehab for a short time to ensure his basic ADLs are being met. Objective Vital Signs Date Time Temp Pulse Resp B/P (MAP) Pulse Ox O2 Delivery O2 Flow Rate FiO2 04/03/18 06:19 72 04/03/18 03:32 97.9 20 150/70 (96) 97 04/02/18 19:45 Room Air Intake and Output 04/03/18 04/03/18 04/04/18 08:00 16:00 00:00 Intake Total 240 ml Output Total 750 ml Balance -510 ml Result Diagram: 04/01/18 0525 04/03/18 0251 Other Results Microbiology Date/Time Source Procedure Growth Status 03/31/18 12:40 Urine Catheterized Urine Urine Culture - Final NO GROWTH IN 48 HOURS. Complete Imaging Renal US pending Objective Remarks GENERAL: Elderly male,sitting up in chair, obvious right facial droop HEENT: Normocephalic. Atraumatic. Pupils equal, round, reactive, prominent right facial droop. Oral mucosa is moist NECK: Trachea is midline. There is no JVD. CHEST: Equal chest rise. No wheezes or crackles CARDIOVASCULAR: Normal rate, regular rhythm. Sinus by telemetry. No evidence of significant valvular regurgitation ABDOMEN: Soft, nontender, nondistended. No guarding. MUSCULOSKELETAL: No peripheral edema. Skin is dry NEUROLOGICAL: Patient is alert awake able to state his name but has expressive aphasia and right facial droop. Motor strength 5 out of 5 on the left side 4 out of 5 on the right A/P Assessment and Plan A/P Assessment: 77-year-old male status post transcatheter aortic valve replacement , complicated by acute left MCA stroke on 03/11/18 now with acute pre-renal DOREEN on CKD. some improvements, although remains dehydrated. continue ivf. speech consult for calorie counts and re-eval of swallowing function. Left MCA stroke post TAVR 03/11/18 Continue aspirin Plavix Neurology Dr. Rodríguez has seen last admission PT/OT/Speech Status post transcatheter aortic valve replacement 03/11 with common iliac access Dehydration On 11/11 NS at 150 cc/hr. Reduce rate to 100 ml per hour with improved PO intake Holding lisinopril and Lasix Continue aspirin Plavix Poor PO intake - speech eval for swallowing and dietary for calorie counting. -P.o. intake improving per Acute on Chronic kidney disease Prerenal continue ivf. renal u/s: normal. Nephrology Dr. Joyce Hypernatremia - likely poor renal clearance of sodium - continue / NS. continue daily bmp and electrolyte monitoring. Hypokalemia - aggressive replacement. COPD Nebs PRN, Aggressive pulmonary toilet. Add EzPAP, acapella Oxygen by nasal cannula to keep SPO2 greater than 90% Hypertension Hold home antihypertensives Hyperlipidemia Hold statins at this time due to severe dehydration and renal failure Diabetes Sliding-scale insulin Coronary artery disease Aspirin, Plavix as above GERD Famotidine, Heparin sq Dispo: must remain inpatient as we monitor renal function. consult hospitalist service. Fidel Chacko MD April 03, 2018 07:49
--- NOTE | 2018-04-03 08:48 | PD.CARD.PN ---
Subjective Subjective Remarks denies chest pain, sob or palpitations. renal function improving. no events on telemetry (Lisa Ellis) Objective Medications Current Medications Medications (Trade) Dose Ordered Sig/Yuki Route Start Time Stop Time Status Last Admin (NS Flush) 2 ml UNSCH PRN IV FLUSH 03/31/18 10:45 (NS Flush) 2 ml BID IV FLUSH 03/31/18 21:00 04/01/18 20:14 (Tylenol) 650 mg Q6H PRN PO 03/31/18 10:45 (Duoneb Neb) 1 ampule Q2HR NEB PRN NEB 03/31/18 10:45 (Heparin Inj) 5,000 units Q12H SQ 03/31/18 11:00 04/02/18 23:25 ([facility] [place] [facility]) 1 Q361D XX 03/31/18 10:45 03/31/18 10:45 (Chlorhexidine 2% Cloth) 3 pack Taper DAILY@04 TOP 04/01/18 04:00 03/28/19 03:59 (Chlorhexidine 2% Cloth) 3 pack UNSCH PRN TOP 03/31/18 10:45 (Ecotrin Ec) 81 mg DAILY PO 04/01/18 09:00 04/02/18 08:34 (Symbicort 160-4.5 Mcg Inh) 2 puff Q12HR INH 03/31/18 21:00 04/02/18 21:00 (Vitamin D3) 2,000 units DAILY PO 04/01/18 09:00 04/02/18 08:34 (Plavix) 75 mg DAILY PO 04/01/18 09:00 04/02/18 08:34 (Colace) 100 mg BID PO 03/31/18 21:00 (Percocet 5-325 Mg) 1 tab Q4H PRN PO 03/31/18 10:45 04/01/18 12:47 (NovoLOG SUPPLEMENTAL SCALE) 1 Q4HR SQ 03/31/18 10:45 04/02/18 20:50 (D50w (Vial) Inj) 50 ml UNSCH PRN IV PUSH 03/31/18 11:00 (Glucagon Inj) 1 mg UNSCH PRN OTHER 03/31/18 11:00 (Pill Splitter) 1 ea UNSCH PRN OTHER 5/22/18 11:00 Sodium Chloride 1,000 ml @ 100 mls/hr Q10H IV 04/01/18 06:45 04/02/18 23:42 (Pepcid) 10 mg Q12HR PO 04/01/18 21:00 04/02/18 20:50 (Lopressor) 25 mg Q12HR PO 04/01/18 21:00 04/02/18 20:50 Vital Signs / I&O Vital Signs Date Time Temp Pulse Resp B/P (MAP) Pulse Ox O2 Delivery O2 Flow Rate FiO2 04/03/18 06:19 72 04/03/18 05:05 70 04/03/18 04:53 77 04/03/18 03:32 65 04/03/18 03:32 97.9 72 20 150/70 (96) 97 04/03/18 02:04 63 04/03/18 01:20 63 04/03/18 00:00 64 04/02/18 23:50 70 04/02/18 23:50 98.0 69 18 148/66 (93) 96 04/02/18 22:40 67 04/02/18 21:40 60 04/02/18 20:10 63 04/02/18 19:50 97.8 76 20 133/59 (83) 99 04/02/18 19:45 66 04/02/18 19:45 Room Air 04/02/18 18:00 75 04/02/18 17:00 63 04/02/18 16:00 71 04/02/18 15:00 75 04/02/18 15:00 98.1 62 18 60/61 (61) 100 04/02/18 14:00 73 04/02/18 13:00 63 04/02/18 12:00 73 04/02/18 11:00 59 04/02/18 11:00 98.4 68 20 133/61 (85) 98 04/02/18 10:00 59 04/02/18 09:00 71 I/O 04/02/18 04/02/18 04/02/18 04/03/18 04/03/18 04/03/18 07:00 15:00 23:00 07:00 15:00 23:00 Intake Total 1000 ml 720 ml 240 ml Output Total 750 ml 730 ml 750 ml Balance 250 ml -10 ml -510 ml Intake Oral 720 ml 240 ml IV Total 1000 ml Output Urine Total 750 ml 730 ml 750 ml # Bowel Movements 0 1 Physical Exam GENERAL: SKIN: Warm and dry. HEAD: Atraumatic. Normocephalic. EYES: Pupils equal and round. No scleral icterus. ENT: No nasal bleeding or discharge. NECK: Trachea midline. No JVD. CARDIOVASCULAR: Regular rate and rhythm. systolic murmur II/ RESPIRATORY: No accessory muscle use. Clear to auscultation. Breath sounds equal bilaterally. GASTROINTESTINAL: Abdomen soft, non-tender, nondistended. Hepatic and splenic margins not palpable. MUSCULOSKELETAL: Extremities without clubbing, cyanosis, or edema. No obvious deformities. NEUROLOGICAL: Awake and alert. PSYCHIATRIC: Appropriate mood and affect; insight and judgment normal. Laboratory Laboratory Tests Test 04/02/18 09:11 04/03/18 02:51 Blood Urea Nitrogen 89 MG/DL 74 MG/DL Creatinine 4.11 MG/DL 3.36 MG/DL Random Glucose 111 MG/DL 96 MG/DL Total Protein 6.7 GM/DL Albumin 2.3 GM/DL Calcium Level 8.3 MG/DL 7.9 MG/DL Alkaline Phosphatase 164 U/L Aspartate Amino Transf (AST/SGOT) 33 U/L Alanine Aminotransferase (ALT/SGPT) 39 U/L Total Bilirubin 0.7 MG/DL Sodium Level 146 MEQ/L 146 MEQ/L Potassium Level 4.0 MEQ/L 3.4 MEQ/L Chloride Level 112 MEQ/L 112 MEQ/L Carbon Dioxide Level 23.6 MEQ/L 25.0 MEQ/L Anion Gap 10 MEQ/L 9 MEQ/L Estimat Glomerular Filtration Rate 14 ML/MIN 18 ML/MIN (Lisa Ellis) Assessment and Plan Problem List: (1) Dehydration ICD Codes: E86.0 - Dehydration (2) Aortic stenosis ICD Codes: I35.0 - Nonrheumatic aortic (valve) stenosis (3) CAD (coronary artery disease) ICD Codes: I25.10 - Atherosclerotic heart disease of [place] coronary artery without angina pectoris (4) Diastolic CHF ICD Codes: I50.30 - Unspecified diastolic (congestive) heart failure (5) Acute on chronic kidney failure ICD Codes: N17.9 - Acute kidney failure, unspecified; N18.9 - Chronic kidney disease, unspecified Assessment and Plan 77 yo M with CAD, COPD, CKD, CHF and severe who recently underwent TAVR on . 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 Outpatient labs showed an elevated creatinine of 6 and he was directed to [facility] [place] for [place]. He reports having poor oral intake in the past few weeks. severe - s/p TAVR 03/11/18 no chest pain cont asa, plavix, bb EF 65-70% no NSVT seen on tele overnight ARF- nephrology following renal function improving with IVF oral intake improving receiving ST/PT/OT (Lisa Ellis) Assessment and Plan fatigued. likely lack of sleep. accu checks qacah instead of q4 hrs no vitals between 11pm - 5am cont gentle hydration inpatient rehab? ambulate with assistance elevate scrotum DC mckenzie? (Ty Alberto MD) Problem Qualifiers (1) Acute on chronic kidney failure: Lisa Ellis April 03, 2018 08:48 Ty Alberto MD April 03, 2018 10:39
[2018-04-03] MEDS: BUDESONIDE-FORMOTEROL 160/4.5 MCG INHALER INH SCH ×2 (09:07→20:52)
[2018-04-03] MEDS: METOPROLOL TARTRATE 25 MG TAB PO SCH ×2 (09:08→20:44)
[2018-04-03] MEDS: ASPIRIN EC 81 MG TABEC PO SCH (09:08)
[2018-04-03] MEDS: CHOLECALCIFEROL (VIT D3) 1000 UNIT TAB PO SCH (09:08)
[2018-04-03] MEDS: CLOPIDOGREL 75 MG TAB PO SCH (09:08)
[2018-04-03] MEDS: DOCUSATE SODIUM 100 MG CAP PO SCH ×2 (09:08→20:44)
[2018-04-03] MEDS: HEPARIN SODIUM - SQ 10,000 UNITS/ML VIAL SQ SCH ×2 (09:08→23:05)
[2018-04-03] MEDS: SODIUM CHLOR 0.45% 1000 ML INJ 1,000 ML IV SCH ×2 (09:09→23:05)
[2018-04-03] MEDS: FAMOTIDINE 20 MG TAB PO SCH ×2 (09:09→20:44)
[2018-04-03] MEDS: SODIUM CHLORIDE 0.9% FLUSH 10 ML FLUSH IV FLUSH SCH ×2 (09:09→20:52)
--- NOTE | 2018-04-03 15:54 | HHI.NPPN ---
Subjective History of Present Illness 77-year-old with CVA right hemiparesis history of TAVR Objective Data Data Vital Signs Date Time Temp Pulse Resp B/P (MAP) Pulse Ox O2 Delivery O2 Flow Rate FiO2 04/03/18 14:00 65 04/03/18 13:00 70 04/03/18 12:00 72 04/03/18 12:00 97.8 67 18 143/62 (89) 100 04/03/18 11:00 64 04/03/18 10:00 72 04/03/18 09:00 68 04/03/18 08:00 66 04/03/18 07:50 97.6 72 18 156/70 (98) 100 04/03/18 07:50 100 Room Air 04/03/18 07:50 72 04/03/18 06:19 72 04/03/18 05:05 70 04/03/18 04:53 77 04/03/18 03:32 65 04/03/18 03:32 97.9 72 20 150/70 (96) 97 04/03/18 02:04 63 04/03/18 01:20 63 04/03/18 00:00 64 04/02/18 23:50 70 04/02/18 23:50 98.0 69 18 148/66 (93) 96 04/02/18 22:40 67 04/02/18 21:40 60 04/02/18 20:10 63 04/02/18 19:50 97.8 76 20 133/59 (83) 99 04/02/18 19:45 66 04/02/18 19:45 Room Air 04/02/18 18:00 75 04/02/18 17:00 63 04/02/18 16:00 71 -: 04/01/18 0525 04/03/18 0251 Physical Exam General Appearance: Well Developed, Well Nourished Pulmonary Resp Exam: Clear Bilaterally Cardiology CV Exam: Regular, Normal Sinus Rhythm Gastrointestinal/Abdomen GI Exam: Soft, Non-Tender, Bowel Sounds Present Extremeties Extremities Exam: No Edema Neurologic Neuro Exam: Alert, Awake Assessment/Plan Problem List: (1) Acute renal failure ICD Codes: N17.9 - Acute kidney failure, unspecified Plan: Patient has improvement creatinine declined to 3.36 continue to hydrate K 3.4 replace Avoid nephrotoxins Patient may need to feeding tube placement due to ongoing problems with swallowing History of recent CVA History of TAVR (2) Dehydration ICD Codes: E86.0 - Dehydration Plan: Patient on normal saline at 150 cc an hour (3) S/P TAVR (transcatheter aortic valve replacement) ICD Codes: Z95.2 - Presence of prosthetic heart valve Plan: Recent placement earlier this month (4) CVA (cerebral vascular accident) ICD Codes: I63.9 - Cerebral infarction, unspecified Plan: Continue to monitor May need feeding tube placement Problem Qualifiers (1) CVA (cerebral vascular accident): Chaparro Joyce MD April 03, 2018 15:54
[2018-04-03] MEDS ORDERED: POTASSIUM CHLORIDE 20 MEQ CONTROLLED RELEASE TAB PO ONE (16:00)
[2018-04-03] MEDS ORDERED: POTASSIUM CHLORIDE 25 MEQ EFFERVESCENT TAB PO ONE (19:00)
[2018-04-04] VITALS (25 sets, daily range): BP systolic 133–159; BP diastolic 63–68; PULSE 59–101; RESP 19–23; TEMP 97.2–98.7; O2SAT 98–100
[2018-04-04] MEDS: CHLORHEXIDINE GLUCONATE 2 % 1 PACK (2 CLOTHS) TOP SCH (04:00)
[2018-04-04] MEDS: INSULIN ASPART SUPPLEMENTAL SCALE SQ SCH ×4 (08:00→20:51)
[2018-04-04] MEDS: DOCUSATE SODIUM 100 MG CAP PO SCH ×2 (08:51→20:51)
[2018-04-04] MEDS: FAMOTIDINE 20 MG TAB PO SCH ×2 (08:52→20:51)
[2018-04-04] MEDS: METOPROLOL TARTRATE 25 MG TAB PO SCH ×2 (08:53→20:51)
[2018-04-04] MEDS: ASPIRIN EC 81 MG TABEC PO SCH (08:53)
[2018-04-04] MEDS: CLOPIDOGREL 75 MG TAB PO SCH (08:53)
[2018-04-04] MEDS: SODIUM CHLORIDE 0.9% FLUSH 10 ML FLUSH IV FLUSH SCH ×2 (08:54→20:51)
[2018-04-04] MEDS: CHOLECALCIFEROL (VIT D3) 1000 UNIT TAB PO SCH (08:54)
[2018-04-04] MEDS: BUDESONIDE-FORMOTEROL 160/4.5 MCG INHALER INH SCH ×2 (08:55→20:51)
--- NOTE | 2018-04-04 09:11 | PD.CARD.PN ---
Subjective Subjective Remarks denies chest pain, sob or palpitations. renal function improving. no events on telemetry Objective Medications Current Medications Medications (Trade) Dose Ordered Sig/Yuki Route Start Time Stop Time Status Last Admin (NS Flush) 2 ml UNSCH PRN IV FLUSH 03/31/18 10:45 (NS Flush) 2 ml BID IV FLUSH 03/31/18 21:00 04/04/18 08:54 (Tylenol) 650 mg Q6H PRN PO 03/31/18 10:45 (Duoneb Neb) 1 ampule Q2HR NEB PRN NEB 03/31/18 10:45 (Heparin Inj) 5,000 units Q12H SQ 03/31/18 11:00 04/03/18 23:05 ([facility] [place] Nursing Information) 1 Q361D XX 03/31/18 10:45 03/31/18 10:45 (Chlorhexidine 2% Cloth) 3 pack Taper DAILY@04 TOP 04/01/18 04:00 03/28/19 03:59 (Chlorhexidine 2% Cloth) 3 pack UNSCH PRN TOP 03/31/18 10:45 (Ecotrin Ec) 81 mg DAILY PO 04/01/18 09:00 04/04/18 08:53 (Symbicort 160-4.5 Mcg Inh) 2 puff Q12HR INH 03/31/18 21:00 04/04/18 08:55 (Vitamin D3) 2,000 units DAILY PO 04/01/18 09:00 04/04/18 08:54 (Plavix) 75 mg DAILY PO 04/01/18 09:00 04/04/18 08:53 (Colace) 100 mg BID PO 03/31/18 21:00 04/04/18 08:51 (Percocet 5-325 Mg) 1 tab Q4H PRN PO 03/31/18 10:45 04/01/18 12:47 (D50w (Vial) Inj) 50 ml UNSCH PRN IV PUSH 03/31/18 11:00 (Glucagon Inj) 1 mg UNSCH PRN OTHER 03/31/18 11:00 (Pill Splitter) 1 ea UNSCH PRN OTHER 03/31/18 11:00 Sodium Chloride 1,000 ml @ 100 mls/hr Q10H IV 04/01/18 06:45 04/03/18 23:05 (Pepcid) 10 mg Q12HR PO 04/01/18 21:00 04/04/18 08:52 (Lopressor) 25 mg Q12HR PO 04/01/18 21:00 04/04/18 08:53 (NovoLOG SUPPLEMENTAL SCALE) 1 ACHS SQ 04/03/18 12:00 04/03/18 20:54 Vital Signs / I&O Vital Signs Date Time Temp Pulse Resp B/P (MAP) Pulse Ox O2 Delivery O2 Flow Rate FiO2 04/04/18 06:08 66 04/04/18 05:16 61 04/04/18 04:26 78 04/04/18 03:31 59 04/04/18 02:28 74 04/04/18 01:17 65 04/04/18 00:24 75 04/03/18 23:44 98.4 72 19 121/58 (79) 100 04/03/18 23:20 66 04/03/18 22:00 66 04/03/18 21:00 70 04/03/18 20:00 64 04/03/18 19:40 98.7 70 20 149/63 (91) 99 04/03/18 19:30 68 04/03/18 19:30 99 Room Air 04/03/18 18:00 69 04/03/18 17:00 69 04/03/18 16:05 97.9 71 20 143/64 (90) 98 04/03/18 16:05 71 04/03/18 15:00 71 04/03/18 14:00 65 04/03/18 13:00 70 04/03/18 12:00 72 04/03/18 12:00 97.8 67 18 143/62 (89) 100 04/03/18 11:00 64 04/03/18 10:00 72 I/O 04/03/18 04/03/18 04/03/18 04/04/18 04/04/18 04/04/18 07:00 15:00 23:00 07:00 15:00 23:00 Intake Total 240 ml 1371 ml 0 ml Output Total 750 ml 725 ml 750 ml Balance -510 ml 646 ml -750 ml Intake Oral 240 ml 350 ml 0 ml IV Total 1021 ml Output Urine Total 750 ml 725 ml 750 ml # Bowel Movements 1 0 Physical Exam GENERAL: SKIN: Warm and dry. HEAD: Atraumatic. Normocephalic. EYES: Pupils equal and round. No scleral icterus. ENT: No nasal bleeding or discharge. NECK: Trachea midline. No JVD. CARDIOVASCULAR: Regular rate and rhythm. systolic murmur II/ RESPIRATORY: No accessory muscle use. Clear to auscultation. Breath sounds equal bilaterally. GASTROINTESTINAL: Abdomen soft, non-tender, nondistended. Hepatic and splenic margins not palpable. MUSCULOSKELETAL: Extremities without clubbing, cyanosis, or edema. No obvious deformities. NEUROLOGICAL: Awake and alert. PSYCHIATRIC: Appropriate mood and affect; insight and judgment normal. Laboratory Laboratory Tests Test 03/31/18 11:00 03/31/18 11:40 03/31/18 12:40 04/01/18 05:25 Nasal Screen MRSA (PCR) MRSA NOT DETECTED Lactic Acid Level 1.5 mmol/L Urine Color YELLOW Urine Turbidity CLOUDY Urine pH 5.0 Urine Specific [place] 1.015 Urine Protein 30 mg/dL Urine Glucose (UA) NEG mg/dL Urine Ketones TRACE mg/dL Urine Occult Blood NEG Urine Nitrite NEG Urine Bilirubin NEGATIVE Urine Urobilinogen 2.0 MG/DL Urine Leukocyte Esterase NEGATIVE Urine RBC 1 /hpf Urine WBC 3 /hpf Urine Amorphous Sediment SMALL Urine Bacteria RARE /hpf Urine Mucus FEW /lpf Microscopic Urinalysis Comment CATH-CULTURE IND Urine Random Creatinine 186.6 MG/DL Urine Random Sodium 31 MEQ/L White Blood Count 6.5 TH/MM3 Red Blood Count 3.06 MIL/MM3 Hemoglobin 9.3 GM/DL Hematocrit 28.1 % Mean Corpuscular Volume 91.9 FL Mean Corpuscular Hemoglobin 30.3 PG Mean Corpuscular Hemoglobin Concent 32.9 % Red Cell Distribution Width 15.9 % Platelet Count 155 TH/MM3 Mean Platelet Volume 10.3 FL Neutrophils (%) (Auto) 62.4 % Lymphocytes (%) (Auto) 17.4 % Monocytes (%) (Auto) 8.7 % Eosinophils (%) (Auto) 10.9 % Basophils (%) (Auto) 0.6 % Neutrophils # (Auto) 4.0 TH/MM3 Lymphocytes # (Auto) 1.1 TH/MM3 Monocytes # (Auto) 0.6 TH/MM3 Eosinophils # (Auto) 0.7 TH/MM3 Basophils # (Auto) 0.0 TH/MM3 CBC Comment DIFF FINAL Differential Comment Blood Urea Nitrogen 121 MG/DL Creatinine 5.47 MG/DL Random Glucose 87 MG/DL Total Protein 6.1 GM/DL Albumin 2.2 GM/DL Calcium Level 8.2 MG/DL Phosphorus Level 4.3 MG/DL Magnesium Level 2.4 MG/DL Alkaline Phosphatase 149 U/L Aspartate Amino Transf (AST/SGOT) 30 U/L Alanine Aminotransferase (ALT/SGPT) 37 U/L Total Bilirubin 0.7 MG/DL Sodium Level 150 MEQ/L Potassium Level 3.8 MEQ/L Chloride Level 114 MEQ/L Carbon Dioxide Level 20.9 MEQ/L Test 04/02/18 09:11 04/03/18 02:51 Blood Urea Nitrogen 89 MG/DL 74 MG/DL Creatinine 4.11 MG/DL 3.36 MG/DL Random Glucose 111 MG/DL 96 MG/DL Total Protein 6.7 GM/DL Albumin 2.3 GM/DL Calcium Level 8.3 MG/DL 7.9 MG/DL Alkaline Phosphatase 164 U/L Aspartate Amino Transf (AST/SGOT) 33 U/L Alanine Aminotransferase (ALT/SGPT) 39 U/L Total Bilirubin 0.7 MG/DL Sodium Level 146 MEQ/L 146 MEQ/L Potassium Level 4.0 MEQ/L 3.4 MEQ/L Chloride Level 112 MEQ/L 112 MEQ/L Carbon Dioxide Level 23.6 MEQ/L 25.0 MEQ/L Anion Gap 9 MEQ/L Estimat Glomerular Filtration Rate 18 ML/MIN Assessment and Plan Problem List: (1) Dehydration ICD Codes: E86.0 - Dehydration (2) Aortic stenosis ICD Codes: I35.0 - Nonrheumatic aortic (valve) stenosis (3) CAD (coronary artery disease) ICD Codes: I25.10 - Atherosclerotic heart disease of [place] coronary artery without angina pectoris (4) Diastolic CHF ICD Codes: I50.30 - Unspecified diastolic (congestive) heart failure (5) Acute on chronic kidney failure ICD Codes: N17.9 - Acute kidney failure, unspecified; N18.9 - Chronic kidney disease, unspecified Assessment and Plan 77 yo M with CAD, COPD, CKD, CHF and severe who recently underwent TAVR on . 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 Outpatient labs showed an elevated creatinine of 6 and he was directed to [facility] for care. He reports having poor oral intake in the past few weeks. severe - s/p TAVR 03/11/18 no chest pain cont asa, plavix, bb EF 65-70% no NSVT seen on tele overnight ARF- nephrology following gentle hydration renal function improving, creatinine down to 3.3 oral intake improving receiving ST/PT/OT slept well last night but continues to express a desire to sleep. at bedside no vitals between 11pm-5am Problem Qualifiers (1) Acute on chronic kidney failure: Lisa Ellis April 04, 2018 09:11
[2018-04-04] MEDS: SODIUM CHLOR 0.45% 1000 ML INJ 1,000 ML IV SCH ×2 (11:55→20:51)
[2018-04-04] MEDS: HEPARIN SODIUM - SQ 10,000 UNITS/ML VIAL SQ SCH ×2 (11:57→22:20)
--- NOTE | 2018-04-04 12:25 | HHI.NPPN ---
Subjective History of Present Illness 77-year-old with CVA right hemiparesis history of TAVR Objective Data Data Vital Signs Date Time Temp Pulse Resp B/P (MAP) Pulse Ox O2 Delivery O2 Flow Rate FiO2 04/04/18 10:00 63 04/04/18 09:00 90 04/04/18 08:00 76 04/04/18 07:20 98 Room Air 04/04/18 07:00 97.2 82 20 159/68 (98) 98 04/04/18 07:00 64 04/04/18 06:08 66 04/04/18 05:16 61 04/04/18 04:26 78 04/04/18 03:31 59 04/04/18 02:28 74 04/04/18 01:17 65 04/04/18 00:24 75 04/03/18 23:44 98.4 72 19 121/58 (79) 100 04/03/18 23:20 66 04/03/18 22:00 66 04/03/18 21:00 70 04/03/18 20:00 64 04/03/18 19:40 98.7 70 20 149/63 (91) 99 04/03/18 19:30 68 04/03/18 19:30 99 Room Air 04/03/18 18:00 69 04/03/18 17:00 69 04/03/18 16:05 97.9 71 20 143/64 (90) 98 04/03/18 16:05 71 04/03/18 15:00 71 04/03/18 14:00 65 04/03/18 13:00 70 -: 04/01/18 0525 04/03/18 0251 Physical Exam General Appearance: Well Developed, Well Nourished Pulmonary Resp Exam: Clear Bilaterally Cardiology CV Exam: Regular, Normal Sinus Rhythm Gastrointestinal/Abdomen GI Exam: Soft, Non-Tender, Bowel Sounds Present Extremeties Extremities Exam: No Edema Neurologic Neuro Exam: Alert, Awake Assessment/Plan Problem List: (1) Acute renal failure ICD Codes: N17.9 - Acute kidney failure, unspecified Plan: Patient has improvement creatinine declined to 3.36 continue to hydrate no new labs BMP in am trying to eat still c/o weakness Avoid nephrotoxins History of recent CVA History of TAVR (2) Dehydration ICD Codes: E86.0 - Dehydration Plan: Patient on normal saline at 150 cc an hour (3) S/P TAVR (transcatheter aortic valve replacement) ICD Codes: Z95.2 - Presence of prosthetic heart valve Plan: Recent placement earlier this month (4) CVA (cerebral vascular accident) ICD Codes: I63.9 - Cerebral infarction, unspecified Plan: Continue to monitor May need feeding tube placement Problem Qualifiers (1) CVA (cerebral vascular accident): Chaparro Joyce MD April 04, 2018 12:25
[2018-04-04] MEDS: FERROUS SULFATE 325 MG (65 MG ELEMENTAL IRON) TAB PO SCH (13:35)
--- NOTE | 2018-04-04 16:09 | HHI.PR ---
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 He then underwent TAVR by Dr. Alberto on above date. Post op developed acute CVA, had right facial droop and almost flaccid right upper extremity paralysis, significant weakness of right lower extremity. He gradually made improvement and was able to regain some strength of the upper extremity and was able to walk with a walker. He was eventually discharged to rehab facility on 03/17/2018. Apparently was discharged home after a week, he underwent outpatient lab work today which showed a creatinine approximately 6. With this information patient was admitted directly to the [facility] for further workup. Labs here at [place] showed BUN 162 and creatinine 6.96. Clinical picture is more consistent with dehydration, prerenal azotemia and BUN/ creatinine ratio of 23.5. FeNa pending. gives additional history of poor p.o. intake over the last 1 week. Patient does not have any significant acidosis and no acute indication for hemodialysis at this time. I have ordered 2 L normal saline bolus, and we will continue maintenance fluid at 125 ml per hour. Subjective: 04/01: resting comfortably. Cr improving slowly. very dehydrated and continues to appear volume deplete. not taking adequate po. 04/02: Sitting up in chair good urine output. BUN/creatinine improved 89/4.11, sodium 146. Continue IV fluid half-normal saline but reduce rate to 100 mL/h. tolerating p.o. intake better now per at bedside 04/03: clinically improving. resting comfortably. denies complaints. ROS negative. Cr continues to slowly come down. sodium remains elevated: likely poor renal ability to excrete sodium in the setting of resolving DOREEN. although physical therapy recommends home with home health, OT recommends OT at rehab, and given that he became severely dehydrated at home, may need to consider inpatient rehab for a short time to ensure his basic ADLs are being met. 04/04. Patient says he is feeling all right. Denies any chest pain or shortness of breath. Objective Vital Signs Date Time Temp Pulse Resp B/P (MAP) Pulse Ox O2 Delivery O2 Flow Rate FiO2 04/04/18 15:00 66 04/04/18 15:00 97.4 73 23 133/63 (86) 100 04/04/18 14:08 64 04/04/18 13:00 65 04/04/18 12:00 70 04/04/18 11:00 98.1 67 20 152/67 (95) 98 04/04/18 11:00 69 04/04/18 10:00 63 04/04/18 09:00 90 04/04/18 08:00 76 04/04/18 07:20 98 Room Air 04/04/18 07:00 97.2 82 20 159/68 (98) 98 04/04/18 07:00 64 04/04/18 06:08 66 04/04/18 05:16 61 04/04/18 04:26 78 04/04/18 03:31 59 04/04/18 02:28 74 04/04/18 01:17 65 04/04/18 00:24 75 04/03/18 23:44 98.4 72 19 121/58 (79) 100 04/03/18 23:20 66 04/03/18 22:00 66 04/03/18 21:00 70 04/03/18 20:00 64 04/03/18 19:40 98.7 70 20 149/63 (91) 99 04/03/18 19:30 68 04/03/18 19:30 99 Room Air 04/03/18 18:00 69 04/03/18 17:00 69 I/O 04/03/18 04/03/18 04/03/18 04/04/18 04/04/18 04/04/18 07:00 15:00 23:00 07:00 15:00 23:00 Intake Total 240 ml 1371 ml 0 ml Output Total 750 ml 725 ml 750 ml Balance -510 ml 646 ml -750 ml Intake Oral 240 ml 350 ml 0 ml IV Total 1021 ml Output Urine Total 750 ml 725 ml 750 ml # Bowel Movements 1 0 Result Diagram: 04/01/18 0525 04/03/18 0251 Objective Remarks GENERAL: Patient lying in bed. Appears comfortable. Speech somewhat halting, however communicates effectively enough. Smiling. SKIN: Warm and dry. HEAD: Normocephalic. EYES: No scleral icterus. No injection or drainage. NECK: Supple, trachea midline. No JVD. CARDIOVASCULAR: Regular rate and rhythm without murmurs, gallops, or rubs. RESPIRATORY: Breath sounds equal bilaterally. No accessory muscle use. GASTROINTESTINAL: Abdomen soft, non-tender, nondistended. MUSCULOSKELETAL: No cyanosis, or edema. Right-sided weakness, 4-5 strength on the right, 5 out of 5 on the left. BACK: Nontender without obvious deformity. No CVA tenderness. A/P Assessment and Plan 77YO w/ Right MCA CVA following TAVR, NOW readmitted with a DOREEN. improving. 04/04. Creatinine improving 3.36. Continue IV fluids as per nephrology. Appreciate nephrology assistance. Suspect patient would benefit from rehab admission Assessment: 77-year-old male status post transcatheter aortic valve replacement , complicated by acute left MCA stroke on 03/11/18 now with acute pre-renal DOREEN on CKD. some improvements, although remains dehydrated. continue ivf. speech consult for calorie counts and re-eval of swallowing function. //Left MCA stroke post TAVR 03/11/18 Continue aspirin Plavix Neurology Dr. Rodríguez has seen last admission PT/OT/Speech -Continue aspirin. = Neuro status appears stable. //Status post transcatheter aortic valve replacement 03/11 with common iliac access Dehydration On 11/11 NS at 150 cc/hr. Reduce rate to 100 ml per hour with improved PO intake Holding lisinopril and Lasix Continue aspirin, Plavix //Poor PO intake - speech eval for swallowing and dietary for calorie counting. -P.o. intake improving per = Continue pured diet with nectar thickened liquids. P.o. intake continues improving. Appreciate dietary assistance. //Acute on Chronic kidney disease Prerenal continue ivf. renal u/s: normal. Nephrology Dr. Joyce = Creatinine improving. Continue to monitor. //Hypernatremia - likely poor renal clearance of sodium - continue 11/11 NS. continue daily bmp and electrolyte monitoring. = Improving. Continue half normal saline. //Hypokalemia - aggressive replacement. //COPD Nebs PRN, Aggressive pulmonary toilet. Add EzPAP, acapella Oxygen by nasal cannula to keep SPO2 greater than 90% //Hypertension Hold home antihypertensives //Hyperlipidemia Hold statins at this time due to severe dehydration and renal failure //Diabetes Sliding-scale insulin //Coronary artery disease Aspirin, Plavix as above //GERD Famotidine, Heparin sq Discharge Planning I think patient would benefit from inpatient rehab admission. OT, PT following. PT previously recommended home health, however high risk of deterioration going home. Alok Ram MD April 04, 2018 16:09
--- NOTE | 2018-04-04 16:11 | HHI.FF ---
Face to Face Verification Diagnosis: (1) Dehydration (2) CVA (cerebral vascular accident) (3) Acute renal failure Physical Therapy Order: Evaluate and Treat Occupational Therapy Order: Evaluate and Treat Home Health Nursing Order: Medical education Nursing assessment with vital signs Instructions: Health nursing for medication management. Senior Security Analyst Order: To Evaluate: Living conditions/environment Order: To Provide: Long range planning I have seen patient Jeanie Chan on 04/04/18. My clinical findings support the need for the requested home health care services because: Limited ability to care for self I certify that my clinical findings support that this patient is homebound because: Unsafe to leave home unassisted Alok Ram MD April 04, 2018 16:11
[2018-04-04 20:22] LABS: BACTERIA, URINE MANY /hpf; BILIRUBIN, URINE NEG (NEG); BLOOD, URINE LARGE (NEG); GLUCOSE,URINE NEG (NEG); HYALINE CAST, URINE 2 /lpf (RARE); KETONE, URINE NEG (NEG); NITRITE,URINE NEG (NEG); URINE COLOR LIGHT-RED (YELLW/STRAW); URINE LEUKOCYTE ESTERASE LARGE (NEG); WHITE BLOOD CELL CLUMPS RARE
[2018-04-05] VITALS (22 sets, daily range): BP systolic 116–144; BP diastolic 58–65; PULSE 63–86; RESP 12–20; TEMP 97.5–98.7; O2SAT 96–100
[2018-04-05] MEDS: CHLORHEXIDINE GLUCONATE 2 % 1 PACK (2 CLOTHS) TOP SCH (04:00)
[2018-04-05 04:28] LABS: BICARBONATE 22.1 MEQ/L (21.0-32.0); CALCIUM 7.7 MG/DL (8.5-10.1); CREATININE 2.33 MG/DL (0.60-1.30)
[2018-04-05] MEDS: cefTRIAXone INJ 1,000 MG in SODIUM CHLORIDE 0.9% INJ 100 ML IV SCH (05:13)
[2018-04-05] MEDS: SODIUM CHLOR 0.45% 1000 ML INJ 1,000 ML IV SCH ×2 (05:13→16:29)
[2018-04-05] MEDS: INSULIN ASPART SUPPLEMENTAL SCALE SQ SCH ×4 (08:00→20:21)
[2018-04-05] MEDS: BUDESONIDE-FORMOTEROL 160/4.5 MCG INHALER INH SCH ×2 (08:44→21:02)
[2018-04-05] MEDS: DOCUSATE SODIUM 100 MG CAP PO SCH ×2 (08:44→21:00)
[2018-04-05] MEDS: CHOLECALCIFEROL (VIT D3) 1000 UNIT TAB PO SCH (08:46)
[2018-04-05] MEDS: FERROUS SULFATE 325 MG (65 MG ELEMENTAL IRON) TAB PO SCH (08:46)
[2018-04-05] MEDS: FAMOTIDINE 20 MG TAB PO SCH ×2 (08:46→21:01)
[2018-04-05] MEDS: CLOPIDOGREL 75 MG TAB PO SCH (08:47)
[2018-04-05] MEDS: ASPIRIN EC 81 MG TABEC PO SCH (08:47)
[2018-04-05] MEDS: METOPROLOL TARTRATE 25 MG TAB PO SCH ×2 (08:47→21:00)
[2018-04-05] MEDS: SODIUM CHLORIDE 0.9% FLUSH 10 ML FLUSH IV FLUSH SCH ×2 (08:48→21:02)
--- NOTE | 2018-04-05 08:51 | PD.CARD.PN ---
Subjective Subjective Remarks denies chest pain, sob or palpitations. renal function improving. no events on telemetry (Lisa Ellis) Objective Medications Current Medications Medications (Trade) Dose Ordered Sig/Yuki Route Start Time Stop Time Status Last Admin (NS Flush) 2 ml UNSCH PRN IV FLUSH 03/31/18 10:45 (NS Flush) 2 ml BID IV FLUSH 03/31/18 21:00 04/04/18 08:54 (Tylenol) 650 mg Q6H PRN PO 03/31/18 10:45 (Duoneb Neb) 1 ampule Q2HR NEB PRN NEB 03/31/18 10:45 (Heparin Inj) 5,000 units Q12H SQ 03/31/18 11:00 04/04/18 22:20 ([facility] [place] Nursing Information) 1 Q361D XX 03/31/18 10:45 03/31/18 10:45 (Chlorhexidine 2% Cloth) 3 pack Taper DAILY@04 TOP 04/01/18 04:00 03/28/19 03:59 (Chlorhexidine 2% Cloth) 3 pack UNSCH PRN TOP 03/31/18 10:45 (Ecotrin Ec) 81 mg DAILY PO 04/01/18 09:00 04/04/18 08:53 (Symbicort 160-4.5 Mcg Inh) 2 puff Q12HR INH 03/31/18 21:00 04/04/18 20:51 (Vitamin D3) 2,000 units DAILY PO 04/01/18 09:00 04/04/18 08:54 (Plavix) 75 mg DAILY PO 04/01/18 09:00 04/04/18 08:53 (Colace) 100 mg BID PO 03/31/18 21:00 04/04/18 08:51 (Percocet 5-325 Mg) 1 tab Q4H PRN PO 03/31/18 10:45 04/01/18 12:47 (D50w (Vial) Inj) 50 ml UNSCH PRN IV PUSH 03/31/18 11:00 (Glucagon Inj) 1 mg UNSCH PRN OTHER 03/31/18 11:00 (Pill Splitter) 1 ea UNSCH PRN OTHER 03/31/18 11:00 Sodium Chloride 1,000 ml @ 100 mls/hr Q10H IV 04/01/18 06:45 04/05/18 05:13 (Pepcid) 10 mg Q12HR PO 04/01/18 21:00 04/04/18 20:51 (Lopressor) 25 mg Q12HR PO 04/01/18 21:00 04/04/18 20:51 (NovoLOG SUPPLEMENTAL SCALE) 1 ACHS SQ 04/03/18 12:00 04/04/18 16:48 (Ferrous Sulfate) 325 mg DAILY PO 04/04/18 13:30 04/04/18 13:35 Ceftriaxone Sodium 1000 mg/ Sodium Chloride 100 ml @ 200 mls/hr Q24H IV 04/05/18 04:00 04/05/18 05:13 Vital Signs / I&O Vital Signs Date Time Temp Pulse Resp B/P (MAP) Pulse Ox O2 Delivery O2 Flow Rate FiO2 04/05/18 06:07 66 04/05/18 05:09 75 04/05/18 04:09 68 04/05/18 03:19 65 04/05/18 02:16 69 04/05/18 01:14 70 04/05/18 00:33 67 04/04/18 23:37 63 04/04/18 23:37 98.7 71 19 137/65 (89) 100 04/04/18 22:00 67 04/04/18 21:00 64 04/04/18 20:10 66 04/04/18 19:59 69 04/04/18 19:57 100 Room Air 04/04/18 19:50 97.8 74 19 153/68 (96) 99 04/04/18 18:03 74 04/04/18 17:00 69 04/04/18 16:00 74 04/04/18 15:00 66 04/04/18 15:00 97.4 73 23 133/63 (86) 100 04/04/18 14:08 64 04/04/18 13:00 65 04/04/18 12:00 70 04/04/18 11:00 98.1 67 20 152/67 (95) 98 04/04/18 11:00 69 04/04/18 10:00 63 04/04/18 09:00 90 I/O 04/04/18 04/04/18 04/04/18 04/05/18 04/05/18 04/05/18 07:00 15:00 23:00 07:00 15:00 23:00 Intake Total 0 ml 1849 ml 0 ml Output Total 750 ml 475 ml 400 ml Balance -750 ml 1374 ml -400 ml Intake Oral 0 ml 720 ml 0 ml IV Total 1129 ml Output Urine Total 750 ml 475 ml 400 ml # Bowel Movements 0 Physical Exam GENERAL: SKIN: Warm and dry. HEAD: Atraumatic. Normocephalic. EYES: Pupils equal and round. No scleral icterus. ENT: No nasal bleeding or discharge. NECK: Trachea midline. No JVD. CARDIOVASCULAR: Regular rate and rhythm. systolic murmur II/ RESPIRATORY: No accessory muscle use. Clear to auscultation. Breath sounds equal bilaterally. GASTROINTESTINAL: Abdomen soft, non-tender, nondistended. Hepatic and splenic margins not palpable. MUSCULOSKELETAL: Extremities without clubbing, cyanosis, or edema. No obvious deformities. NEUROLOGICAL: Awake and alert. stable dysarthria PSYCHIATRIC: Appropriate mood and affect; insight and judgment normal. Laboratory Laboratory Tests Test 04/04/18 19:30 04/05/18 03:34 Urine Color LIGHT-RED Urine Turbidity CLOUDY Urine pH 5.0 Urine Specific [place] 1.015 Urine Protein 30 mg/dL Urine Glucose (UA) NEG mg/dL Urine Ketones NEG mg/dL Urine Occult Blood LARGE Urine Nitrite NEG Urine Bilirubin NEG Urine Urobilinogen LESS THAN 2.0 MG/DL Urine Leukocyte Esterase LARGE Urine RBC 56 /hpf Urine WBC 3 /hpf Urine WBC Clumps RARE Urine Bacteria MANY /hpf Urine Hyaline Casts 2 /lpf Urine Yeast (Budding) MOD Microscopic Urinalysis Comment CATH-CULTURE IND Blood Urea Nitrogen 41 MG/DL Creatinine 2.33 MG/DL Random Glucose 102 MG/DL Calcium Level 7.7 MG/DL Sodium Level 143 MEQ/L Potassium Level 3.5 MEQ/L Chloride Level 113 MEQ/L Carbon Dioxide Level 22.1 MEQ/L Anion Gap 8 MEQ/L Estimat Glomerular Filtration Rate 27 ML/MIN (Lisa Ellis) Assessment and Plan Problem List: (1) Dehydration ICD Codes: E86.0 - Dehydration (2) Aortic stenosis ICD Codes: I35.0 - Nonrheumatic aortic (valve) stenosis (3) CAD (coronary artery disease) ICD Codes: I25.10 - Atherosclerotic heart disease of [place] coronary artery without angina pectoris (4) Diastolic CHF ICD Codes: I50.30 - Unspecified diastolic (congestive) heart failure (5) Acute on chronic kidney failure ICD Codes: N17.9 - Acute kidney failure, unspecified; N18.9 - Chronic kidney disease, unspecified Assessment and Plan 77 yo M with CAD, COPD, CKD, CHF and severe who recently underwent TAVR on . 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 severe - s/p TAVR 03/11/18 no chest pain cont asa, plavix, bb EF 65-70% no NSVT seen on tele overnight ARF- nephrology following gentle hydration renal function improving, creatinine down to 2.3 oral intake improving receiving ST/PT/OT recommend inpatient rehab +UTI, receiving antibiotic (Lisa Ellis) Assessment and Plan --------- Agree with above. (Merritt Lutz DO) Problem Qualifiers (1) Acute on chronic kidney failure: Lisa Ellis April 05, 2018 08:51 Merritt Lutz DO April 05, 2018 10:54
[2018-04-05] MEDS: HEPARIN SODIUM - SQ 10,000 UNITS/ML VIAL SQ SCH (11:54)
--- NOTE | 2018-04-05 13:28 | HHI.NPPN ---
Subjective History of Present Illness 77-year-old with CVA right hemiparesis history of TAVR Objective Data Data Vital Signs Date Time Temp Pulse Resp B/P (MAP) Pulse Ox O2 Delivery O2 Flow Rate FiO2 04/05/18 13:00 67 04/05/18 12:00 66 04/05/18 11:30 97.8 72 18 144/65 (91) 99 04/05/18 11:00 67 04/05/18 10:13 66 04/05/18 09:00 81 04/05/18 08:00 86 04/05/18 07:15 98 Room Air 04/05/18 07:00 97.5 82 20 137/65 (89) 98 04/05/18 07:00 65 04/05/18 06:07 66 04/05/18 05:09 75 04/05/18 04:09 68 04/05/18 03:19 65 04/05/18 02:16 69 04/05/18 01:14 70 04/05/18 00:33 67 04/04/18 23:37 63 04/04/18 23:37 98.7 71 19 137/65 (89) 100 04/04/18 22:00 67 04/04/18 21:00 64 04/04/18 20:10 66 04/04/18 19:59 69 04/04/18 19:57 100 Room Air 04/04/18 19:50 97.8 74 19 153/68 (96) 99 04/04/18 18:03 74 04/04/18 17:00 69 04/04/18 16:00 74 04/04/18 15:00 66 04/04/18 15:00 97.4 73 23 133/63 (86) 100 04/04/18 14:08 64 -: 04/01/18 0525 04/05/18 0334 Microbiology 04/04/18 Urine Culture, Received Pending Physical Exam General Appearance: Well Developed, Well Nourished Pulmonary Resp Exam: Clear Bilaterally Cardiology CV Exam: Regular, Normal Sinus Rhythm Gastrointestinal/Abdomen GI Exam: Soft, Non-Tender, Bowel Sounds Present Extremeties Extremities Exam: No Edema Neurologic Neuro Exam: Alert, Awake Assessment/Plan Problem List: (1) Acute renal failure ICD Codes: N17.9 - Acute kidney failure, unspecified Plan: Patient has improvement creatinine declined to 2.3 continue to hydrate no new labs BMP in am trying to eat still c/o weakness Avoid nephrotoxins ? UTI On Ceftriaxone History of recent CVA History of TAVR (2) Dehydration ICD Codes: E86.0 - Dehydration Plan: Patient on normal saline at 150 cc an hour (3) S/P TAVR (transcatheter aortic valve replacement) ICD Codes: Z95.2 - Presence of prosthetic heart valve Plan: Recent placement earlier this month (4) CVA (cerebral vascular accident) ICD Codes: I63.9 - Cerebral infarction, unspecified Plan: Continue to monitor May need feeding tube placement Problem Qualifiers (1) CVA (cerebral vascular accident): Chaparro Joyce MD April 05, 2018 13:28
--- NOTE | 2018-04-05 15:44 | HHI.PR ---
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 He then underwent TAVR by Dr. Alberto on above date. Post op developed acute CVA, had right facial droop and almost flaccid right upper extremity paralysis, significant weakness of right lower extremity. He gradually made improvement and was able to regain some strength of the upper extremity and was able to walk with a walker. He was eventually discharged to rehab facility on 03/17/2018. Apparently was discharged home after a week, he underwent outpatient lab work today which showed a creatinine approximately 6. With this information patient was admitted directly to the [facility] for further workup. Labs here at [place] showed BUN 162 and creatinine 6.96. Clinical picture is more consistent with dehydration, prerenal azotemia and BUN/ creatinine ratio of 23.5. FeNa pending. gives additional history of poor p.o. intake over the last 1 week. Patient does not have any significant acidosis and no acute indication for hemodialysis at this time. I have ordered 2 L normal saline bolus, and we will continue maintenance fluid at 125 ml per hour. Subjective: 04/01: resting comfortably. Cr improving slowly. very dehydrated and continues to appear volume deplete. not taking adequate po. 04/02: Sitting up in chair good urine output. BUN/creatinine improved 89/4.11, sodium 146. Continue IV fluid half-normal saline but reduce rate to 100 mL/h. tolerating p.o. intake better now per at bedside 04/03: clinically improving. resting comfortably. denies complaints. ROS negative. Cr continues to slowly come down. sodium remains elevated: likely poor renal ability to excrete sodium in the setting of resolving DOREEN. although physical therapy recommends home with home health, OT recommends OT at rehab, and given that he became severely dehydrated at home, may need to consider inpatient rehab for a short time to ensure his basic ADLs are being met. 04/04. Patient says he is feeling all right. Denies any chest pain or shortness of breath. 04/05. Nursing reports some nausea this morning which has resolved. Patient says he is feeling all right. Denies any chest pain or shortness of breath. Denies nausea currently. bm yesterday. Objective Vital Signs Date Time Temp Pulse Resp B/P (MAP) Pulse Ox O2 Delivery O2 Flow Rate FiO2 04/05/18 14:00 66 04/05/18 13:00 67 04/05/18 12:00 66 04/05/18 11:30 97.8 72 18 144/65 (91) 99 04/05/18 11:00 67 04/05/18 10:13 66 04/05/18 09:00 81 04/05/18 08:00 86 04/05/18 07:15 98 Room Air 04/05/18 07:00 97.5 82 20 137/65 (89) 98 04/05/18 07:00 65 04/05/18 06:07 66 04/05/18 05:09 75 04/05/18 04:09 68 04/05/18 03:19 65 04/05/18 02:16 69 04/05/18 01:14 70 04/05/18 00:33 67 04/04/18 23:37 63 04/04/18 23:37 98.7 71 19 137/65 (89) 100 04/04/18 22:00 67 04/04/18 21:00 64 04/04/18 20:10 66 04/04/18 19:59 69 04/04/18 19:57 100 Room Air 04/04/18 19:50 97.8 74 19 153/68 (96) 99 04/04/18 18:03 74 04/04/18 17:00 69 04/04/18 16:00 74 I/O 04/04/18 04/04/18 04/04/18 04/05/18 04/05/18 04/05/18 07:00 15:00 23:00 07:00 15:00 23:00 Intake Total 0 ml 1849 ml 0 ml Output Total 750 ml 475 ml 400 ml Balance -750 ml 1374 ml -400 ml Intake Oral 0 ml 720 ml 0 ml IV Total 1129 ml Output Urine Total 750 ml 475 ml 400 ml # Bowel Movements 0 Result Diagram: 04/01/18 0525 04/05/18 0334 Objective Remarks GENERAL: Patient lying in bed. Appears comfortable. Speech somewhat halting, however communicates effectively enough. Smiling. No change on exam. SKIN: Warm and dry. HEAD: Normocephalic. EYES: No scleral icterus. No injection or drainage. NECK: Supple, trachea midline. No JVD. CARDIOVASCULAR: Regular rate and rhythm without murmurs, gallops, or rubs. RESPIRATORY: Breath sounds equal bilaterally. No accessory muscle use. GASTROINTESTINAL: Abdomen soft, non-tender, nondistended. MUSCULOSKELETAL: No cyanosis, or edema. Right-sided weakness, 4-5 strength on the right, 5 out of 5 on the left. BACK: Nontender without obvious deformity. No CVA tenderness. A/P Assessment and Plan 77YO w/ Right MCA CVA following TAVR, NOW readmitted with a DOREEN. improving. 04/04. Creatinine improving 3.36. Continue IV fluids as per nephrology. Appreciate nephrology assistance. Suspect patient would benefit from rehab admission Assessment: 77-year-old male status post transcatheter aortic valve replacement , complicated by acute left MCA stroke on 03/11/18 now with acute pre-renal DOREEN on CKD. some improvements, although remains dehydrated. continue ivf. speech consult for calorie counts and re-eval of swallowing function. //Left MCA stroke post TAVR 03/11/18 Continue aspirin Plavix Neurology Dr. Rodríguez has seen last admission PT/OT/Speech -Continue aspirin. = Neuro status appears stable. //Status post transcatheter aortic valve replacement 03/11 with common iliac access Dehydration On 11/11 NS at 150 cc/hr. Reduce rate to 100 ml per hour with improved PO intake Holding lisinopril and Lasix Continue aspirin, Plavix //Poor PO intake - speech eval for swallowing and dietary for calorie counting. -P.o. intake improving per = Continue pured diet with nectar thickened liquids. P.o. intake continues improving. Appreciate dietary assistance. = 04/05. We will add Megace to improve p.o. intake. //Acute on Chronic kidney disease Prerenal continue ivf. renal u/s: normal. Nephrology Dr. Joyce = Creatinine improving. Continue to monitor. //Hypernatremia - likely poor renal clearance of sodium - continue 11/11 NS. continue daily bmp and electrolyte monitoring. = Improving. Sodium 142. Continue to monitor. Continue half normal saline. //Hypokalemia -Resolved after placement. //COPD Nebs PRN, Aggressive pulmonary toilet. Add EzPAP, acapella Oxygen by nasal cannula to keep SPO2 greater than 90% //Hypertension Hold home antihypertensives //Hyperlipidemia Hold statins at this time due to severe dehydration and renal failure //Diabetes Sliding-scale insulin //Coronary artery disease Aspirin, Plavix as above //GERD Famotidine, Heparin sq Discharge Planning I think patient would benefit from inpatient rehab admission. OT, PT following. PT previously recommended home health, however high risk of deterioration going home. Alok Ram MD April 05, 2018 15:44
[2018-04-05] MEDS ORDERED: ONDANSETRON ODT 4 MG TAB PO PRN (15:45)
[2018-04-05] MEDS: oxyCODONE/ACETAMINOPHEN 5 MG/325 MG TAB PO PRN (21:00)
[2018-04-05] MEDS: MEGESTROL ACETATE 40 MG TAB PO SCH (21:01)
[2018-04-06] VITALS (19 sets, daily range): BP systolic 130–150; BP diastolic 61–74; PULSE 61–94; RESP 14–17; TEMP 97.9–98.2; O2SAT 97–100
[2018-04-06] MEDS: HEPARIN SODIUM - SQ 10,000 UNITS/ML VIAL SQ SCH ×3 (01:16→23:00)
[2018-04-06] MEDS: CHLORHEXIDINE GLUCONATE 2 % 1 PACK (2 CLOTHS) TOP SCH (04:00)
[2018-04-06] MEDS: cefTRIAXone INJ 1,000 MG in SODIUM CHLORIDE 0.9% INJ 100 ML IV SCH (04:32)
[2018-04-06] MEDS: SODIUM CHLOR 0.45% 1000 ML INJ 1,000 ML IV SCH ×4 (04:38→23:01)
[2018-04-06 06:00] LABS: AUTOMATED NEUTROPHIL # 3.5 TH/MM3 (1.8-7.7); BASOPHIL % 0.6 % (0.0-2.0); EOSINOPHIL # 0.9 TH/MM3 (0-0.4); EOSINOPHIL % 14.6 % (0.0-4.0); HEMOGLOBIN 8.6 GM/DL (13.0-17.0); LYMPH % 19.8 % (9.0-44.0); LYMPHOCYTE # 1.2 TH/MM3 (1.0-4.8); MEAN CELL VOLUME 90.4 FL (80.0-100.0); MEAN CORPUSCULAR HEMOGLOBIN 29.8 PG (27.0-34.0); MEAN PLATELET VOLUME 10.7 FL (7.0-11.0); MONO % 7.5 % (0.0-8.0); MONOCYTE # 0.5 TH/MM3 (0-0.9); NEUT % 57.5 % (16.0-70.0); PLATELET COUNT 109 TH/MM3 (150-450); RED BLOOD COUNT 2.88 MIL/MM3 (4.50-5.90); WHITE BLOOD COUNT 6.1 TH/MM3 (4.0-11.0)
[2018-04-06 06:36] LABS: ALBUMIN 1.8 GM/DL (3.4-5.0); BICARBONATE 22.4 MEQ/L (21.0-32.0); CALCIUM 7.8 MG/DL (8.5-10.1); CREATININE 2.15 MG/DL (0.60-1.30); MAGNESIUM 1.5 MG/DL (1.5-2.5); PHOSPHORUS 2.5 MG/DL (2.5-4.9)
[2018-04-06] MEDS: INSULIN ASPART SUPPLEMENTAL SCALE SQ SCH ×4 (08:00→21:00)
[2018-04-06] MEDS: BUDESONIDE-FORMOTEROL 160/4.5 MCG INHALER INH SCH ×2 (09:30→21:44)
--- NOTE | 2018-04-06 09:43 | HHI.PR ---
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 He then underwent TAVR by Dr. Alberto on above date. Post op developed acute CVA, had right facial droop and almost flaccid right upper extremity paralysis, significant weakness of right lower extremity. He gradually made improvement and was able to regain some strength of the upper extremity and was able to walk with a walker. He was eventually discharged to rehab facility on 03/17/2018. Apparently was discharged home after a week, he underwent outpatient lab work today which showed a creatinine approximately 6. With this information patient was admitted directly to the CPCU for further workup. Labs here at [place] showed BUN 162 and creatinine 6.96. Clinical picture is more consistent with dehydration, prerenal azotemia and BUN/ creatinine ratio of 23.5. FeNa pending. gives additional history of poor p.o. intake over the last 1 week. Patient does not have any significant acidosis and no acute indication for hemodialysis at this time. I have ordered 2 L normal saline bolus, and we will continue maintenance fluid at 125 ml per hour. Subjective: 04/01: resting comfortably. Cr improving slowly. very dehydrated and continues to appear volume deplete. not taking adequate po. 04/02: Sitting up in chair good urine output. BUN/creatinine improved 89/4.11, sodium 146. Continue IV fluid half-normal saline but reduce rate to 100 mL/h. tolerating p.o. intake better now per at bedside 04/03: clinically improving. resting comfortably. denies complaints. ROS negative. Cr continues to slowly come down. sodium remains elevated: likely poor renal ability to excrete sodium in the setting of resolving DOREEN. although physical therapy recommends home with home health, OT recommends OT at rehab, and given that he became severely dehydrated at home, may need to consider inpatient rehab for a short time to ensure his basic ADLs are being met. 04/04. Patient says he is feeling all right. Denies any chest pain or shortness of breath. 04/05. Nursing reports some nausea this morning which has resolved. Patient says he is feeling all right. Denies any chest pain or shortness of breath. Denies nausea currently. bm yesterday. 04/06. No acute events. No nausea today. Patient denies any chest pain shortness of breath he says he does not want to be bothered overnight. Objective Vital Signs Date Time Temp Pulse Resp B/P (MAP) Pulse Ox O2 Delivery O2 Flow Rate FiO2 04/06/18 06:23 64 04/06/18 03:00 98.0 70 16 130/61 (84) 100 04/06/18 03:00 65 04/05/18 23:00 63 04/05/18 23:00 97.7 70 17 116/58 (77) 100 04/05/18 19:00 96 Room Air 04/05/18 19:00 68 04/05/18 19:00 98.7 70 16 127/60 (82) 96 04/05/18 18:00 72 04/05/18 17:00 65 04/05/18 16:00 67 04/05/18 15:00 97.8 68 12 133/62 (85) 97 04/05/18 15:00 70 04/05/18 14:00 66 04/05/18 13:00 67 04/05/18 12:00 66 04/05/18 11:30 97.8 72 18 144/65 (91) 99 04/05/18 11:00 67 04/05/18 10:13 66 I/O 04/05/18 04/05/18 04/05/18 04/06/18 04/06/18 04/06/18 07:00 15:00 23:00 07:00 15:00 23:00 Intake Total 0 ml 1939 ml 950 ml Output Total 400 ml 775 ml 700 ml Balance -400 ml 1164 ml 250 ml Intake Oral 0 ml 720 ml 50 ml IV Total 1219 ml 900 ml Output Urine Total 400 ml 775 ml 700 ml # Bowel Movements 1 0 Result Diagram: 04/06/18 0508 04/06/18 0508 Objective Remarks GENERAL: Patient sitting up in chair. Appears comfortable. Still with halting speech, however communicates effectively enough. Smiling. at bedside. SKIN: Warm and dry. HEAD: Normocephalic. EYES: No scleral icterus. No injection or drainage. NECK: Supple, trachea midline. No JVD. CARDIOVASCULAR: Regular rate and rhythm without murmurs, gallops, or rubs. RESPIRATORY: Breath sounds equal bilaterally. No accessory muscle use. GASTROINTESTINAL: Abdomen soft, non-tender, nondistended. MUSCULOSKELETAL: No cyanosis, or edema. Right-sided weakness, 4-5 strength on the right, 5 out of 5 on the left. BACK: Nontender without obvious deformity. No CVA tenderness. A/P Assessment and Plan 77YO w/ Right MCA CVA following TAVR, NOW readmitted with a DOREEN. improving. 04/04. Creatinine improving 3.36. Continue IV fluids as per nephrology. Appreciate nephrology assistance. Suspect patient would benefit from rehab admission Assessment: 77-year-old male status post transcatheter aortic valve replacement , complicated by acute left MCA stroke on 03/11/18 now with acute pre-renal DOREEN on CKD. some improvements, although remains dehydrated. continue ivf. speech consult for calorie counts and re-eval of swallowing function. //Left MCA stroke post TAVR 03/11/18 Continue aspirin Plavix Neurology Dr. Rodríguez has seen last admission PT/OT/Speech -Continue aspirin. = Neuro status appears stable. //Status post transcatheter aortic valve replacement 03/11 with common iliac access Dehydration On 11/11 NS at 150 cc/hr. Reduce rate to 100 ml per hour with improved PO intake Holding lisinopril and Lasix Continue aspirin, Plavix //Poor PO intake - speech eval for swallowing and dietary for calorie counting. -P.o. intake improving per = Continue pured diet with nectar thickened liquids. P.o. intake continues improving. Appreciate dietary assistance. = 04/05. We will add Megace to improve p.o. intake. //Acute on Chronic kidney disease Prerenal continue ivf. renal u/s: normal. Nephrology Dr. Joyce = Creatinine improving. 2.155.4 early on admission continue to monitor. = 04/06. Will remove Alvarez. Postvoid residual bladder scan this afternoon. //Hypernatremia - likely poor renal clearance of sodium - continue / NS. continue daily bmp and electrolyte monitoring. = Improving. Sodium 142. Continue to monitor. Continue half normal saline. //Hypokalemia -Resolved after placement. //COPD Nebs PRN, Aggressive pulmonary toilet. Add EzPAP, acapella Oxygen by nasal cannula to keep SPO2 greater than 90% //Hypertension Hold home antihypertensives //Hyperlipidemia Hold statins at this time due to severe dehydration and renal failure //Diabetes Sliding-scale insulin //Coronary artery disease Aspirin, Plavix as above //GERD Famotidine, Heparin sq Discharge Planning I think patient would benefit from inpatient rehab admission. OT, PT following. PT previously recommended home health, however high risk of deterioration going home. Pending insurance auth Alok Ram MD April 06, 2018 09:43
[2018-04-06] MEDS: CHOLECALCIFEROL (VIT D3) 1000 UNIT TAB PO SCH (10:06)
[2018-04-06] MEDS: CLOPIDOGREL 75 MG TAB PO SCH (10:07)
[2018-04-06] MEDS: ASPIRIN EC 81 MG TABEC PO SCH (10:07)
[2018-04-06] MEDS: MEGESTROL ACETATE 40 MG TAB PO SCH ×2 (10:07→21:42)
[2018-04-06] MEDS: FAMOTIDINE 20 MG TAB PO SCH ×2 (10:07→21:43)
[2018-04-06] MEDS: DOCUSATE SODIUM 100 MG CAP PO SCH ×2 (10:08→21:00)
[2018-04-06] MEDS: FERROUS SULFATE 325 MG (65 MG ELEMENTAL IRON) TAB PO SCH (10:08)
[2018-04-06] MEDS: SODIUM CHLORIDE 0.9% FLUSH 10 ML FLUSH IV FLUSH SCH ×2 (10:08→21:00)
[2018-04-06] MEDS: METOPROLOL TARTRATE 25 MG TAB PO SCH ×2 (10:08→21:43)
--- NOTE | 2018-04-06 10:17 | PD.CARD.PN ---
Subjective Subjective Remarks doing well no complaints Objective Medications Current Medications Medications (Trade) Dose Ordered Sig/Yuki Route Start Time Stop Time Status Last Admin (NS Flush) 2 ml UNSCH PRN IV FLUSH 03/31/18 10:45 (NS Flush) 2 ml BID IV FLUSH 03/31/18 21:00 04/05/18 21:02 (Tylenol) 650 mg Q6H PRN PO 03/31/18 10:45 (Duoneb Neb) 1 ampule Q2HR NEB PRN NEB 03/31/18 10:45 (Heparin Inj) 5,000 units Q12H SQ 03/31/18 11:00 04/06/18 01:16 ([facility] Nursing Information) 1 Q361D XX 03/31/18 10:45 03/31/18 10:45 (Chlorhexidine 2% Cloth) Taper DAILY@04 TOP 04/01/18 04:00 03/28/19 03:59 (Chlorhexidine 2% Cloth) 3 pack UNSCH PRN TOP 03/31/18 10:45 (Ecotrin Ec) 81 mg DAILY PO 04/01/18 09:00 04/06/18 10:07 (Symbicort 160-4.5 Mcg Inh) 2 puff Q12HR INH 03/31/18 21:00 04/05/18 21:02 (Vitamin D3) 2,000 units DAILY PO 04/01/18 09:00 04/06/18 10:06 (Plavix) 75 mg DAILY PO 04/01/18 09:00 04/06/18 10:07 (Colace) 100 mg BID PO 03/31/18 21:00 04/06/18 10:08 (Percocet 5-325 Mg) 1 tab Q4H PRN PO 03/31/18 10:45 04/05/18 21:00 (D50w (Vial) Inj) 50 ml UNSCH PRN IV PUSH 03/31/18 11:00 (Glucagon Inj) 1 mg UNSCH PRN OTHER 03/31/18 11:00 (Pill Splitter) 1 ea UNSCH PRN OTHER 03/31/18 11:00 Sodium Chloride 1,000 ml @ 100 mls/hr Q10H IV 04/01/18 06:45 04/06/18 04:38 (Pepcid) 10 mg Q12HR PO 04/01/18 21:00 04/06/18 10:07 (Lopressor) 25 mg Q12HR PO 04/01/18 21:00 04/06/18 10:08 (NovoLOG SUPPLEMENTAL SCALE) 1 ACHS SQ 04/03/18 12:00 04/05/18 16:29 (Ferrous Sulfate) 325 mg DAILY PO 04/04/18 13:30 04/06/18 10:08 Ceftriaxone Sodium 1000 mg/ Sodium Chloride 100 ml @ 200 mls/hr Q24H IV 04/05/18 04:00 04/06/18 04:32 (Zofran Odt) 4 mg Q6H PRN PO 04/05/18 15:45 04/05/18 17:48 (Megace) 40 mg Q12HR PO 04/05/18 21:00 04/06/18 10:07 Vital Signs / I&O Vital Signs Date Time Temp Pulse Resp B/P (MAP) Pulse Ox O2 Delivery O2 Flow Rate FiO2 04/06/18 06:23 64 04/06/18 03:00 98.0 70 16 130/61 (84) 100 04/06/18 03:00 65 04/05/18 23:00 63 04/05/18 23:00 97.7 70 17 116/58 (77) 100 04/05/18 19:00 96 Room Air 04/05/18 19:00 68 04/05/18 19:00 98.7 70 16 127/60 (82) 96 04/05/18 18:00 72 04/05/18 17:00 65 04/05/18 16:00 67 04/05/18 15:00 97.8 68 12 133/62 (85) 97 04/05/18 15:00 70 04/05/18 14:00 66 04/05/18 13:00 67 04/05/18 12:00 66 04/05/18 11:30 97.8 72 18 144/65 (91) 99 04/05/18 11:00 67 I/O 04/05/18 04/05/18 04/05/18 04/06/18 04/06/18 04/06/18 07:00 15:00 23:00 07:00 15:00 23:00 Intake Total 0 ml 1939 ml 950 ml Output Total 400 ml 775 ml 700 ml Balance -400 ml 1164 ml 250 ml Intake Oral 0 ml 720 ml 50 ml IV Total 1219 ml 900 ml Output Urine Total 400 ml 775 ml 700 ml # Bowel Movements 1 0 Physical Exam GENERAL: SKIN: Warm and dry. HEAD: Normocephalic. EYES: No scleral icterus. No injection or drainage. NECK: Supple, trachea midline. No JVD or lymphadenopathy. CARDIOVASCULAR: Regular rate and rhythm without murmurs, gallops, or rubs. RESPIRATORY: Breath sounds equal bilaterally. No accessory muscle use. GASTROINTESTINAL: Abdomen soft, non-tender, nondistended. MUSCULOSKELETAL: No cyanosis, or edema. BACK: Nontender without obvious deformity. No CVA tenderness. Laboratory Laboratory Tests Test 04/06/18 05:08 White Blood Count 6.1 TH/MM3 Red Blood Count 2.88 MIL/MM3 Hemoglobin 8.6 GM/DL Hematocrit 26.0 % Mean Corpuscular Volume 90.4 FL Mean Corpuscular Hemoglobin 29.8 PG Mean Corpuscular Hemoglobin Concent 33.0 % Red Cell Distribution Width 16.0 % Platelet Count 109 TH/MM3 Mean Platelet Volume 10.7 FL Neutrophils (%) (Auto) 57.5 % Lymphocytes (%) (Auto) 19.8 % Monocytes (%) (Auto) 7.5 % Eosinophils (%) (Auto) 14.6 % Basophils (%) (Auto) 0.6 % Neutrophils # (Auto) 3.5 TH/MM3 Lymphocytes # (Auto) 1.2 TH/MM3 Monocytes # (Auto) 0.5 TH/MM3 Eosinophils # (Auto) 0.9 TH/MM3 Basophils # (Auto) 0.0 TH/MM3 CBC Comment DIFF FINAL Differential Comment Blood Urea Nitrogen 30 MG/DL Creatinine 2.15 MG/DL Random Glucose 106 MG/DL Albumin 1.8 GM/DL Calcium Level 7.8 MG/DL Phosphorus Level 2.5 MG/DL Magnesium Level 1.5 MG/DL Sodium Level 144 MEQ/L Potassium Level 3.7 MEQ/L Chloride Level 113 MEQ/L Carbon Dioxide Level 22.4 MEQ/L Anion Gap 9 MEQ/L Estimat Glomerular Filtration Rate 30 ML/MIN Imaging Last Impressions Renal Ultrasound 03/31/18 1247 Signed Impressions: CONCLUSION: 1. Unremarkable bilateral renal ultrasound. Assessment and Plan Problem List: (1) Dehydration ICD Codes: E86.0 - Dehydration (2) Aortic stenosis ICD Codes: I35.0 - Nonrheumatic aortic (valve) stenosis (3) CAD (coronary artery disease) ICD Codes: I25.10 - Atherosclerotic heart disease of [place] coronary artery without angina pectoris (4) Diastolic CHF ICD Codes: I50.30 - Unspecified diastolic (congestive) heart failure (5) Acute on chronic kidney failure ICD Codes: N17.9 - Acute kidney failure, unspecified; N18.9 - Chronic kidney disease, unspecified Assessment and Plan cardiac stable scrotum less swollen. JAMARI jain ambulate with assistance PT OT speech inpatient rehab? CM consult Cr improving Problem Qualifiers (1) Acute on chronic kidney failure: Ty Alberto MD April 06, 2018 10:16
--- NOTE | 2018-04-06 11:07 | HHI.NPPN ---
Subjective History of Present Illness 77-year-old with CVA right hemiparesis history of TAVR Objective Data Data Vital Signs Date Time Temp Pulse Resp B/P (MAP) Pulse Ox O2 Delivery O2 Flow Rate FiO2 04/06/18 06:23 64 04/06/18 03:00 98.0 70 16 130/61 (84) 100 04/06/18 03:00 65 04/05/18 23:00 63 04/05/18 23:00 97.7 70 17 116/58 (77) 100 04/05/18 19:00 96 Room Air 04/05/18 19:00 68 04/05/18 19:00 98.7 70 16 127/60 (82) 96 04/05/18 18:00 72 04/05/18 17:00 65 04/05/18 16:00 67 04/05/18 15:00 97.8 68 12 133/62 (85) 97 04/05/18 15:00 70 04/05/18 14:00 66 04/05/18 13:00 67 04/05/18 12:00 66 04/05/18 11:30 97.8 72 18 144/65 (91) 99 -: 04/06/18 0508 04/06/18 0508 Physical Exam General Appearance: Well Developed, Well Nourished Pulmonary Resp Exam: Clear Bilaterally Cardiology CV Exam: Regular, Normal Sinus Rhythm Gastrointestinal/Abdomen GI Exam: Soft, Non-Tender, Bowel Sounds Present Extremeties Extremities Exam: No Edema Neurologic Neuro Exam: Alert, Awake Assessment/Plan Problem List: (1) Acute renal failure ICD Codes: N17.9 - Acute kidney failure, unspecified Plan: Patient has improvement creatinine declined to 2.1 continue to hydrate trying to eat still c/o weakness Avoid nephrotoxins UTI On Ceftriaxone grp D Enterococcus may need Ampicillin History of recent CVA History of TAVR (2) Dehydration ICD Codes: E86.0 - Dehydration Plan: Patient on normal saline at 150 cc an hour (3) S/P TAVR (transcatheter aortic valve replacement) ICD Codes: Z95.2 - Presence of prosthetic heart valve Plan: Recent placement earlier this month (4) CVA (cerebral vascular accident) ICD Codes: I63.9 - Cerebral infarction, unspecified Plan: Continue to monitor May need feeding tube placement Problem Qualifiers (1) CVA (cerebral vascular accident): Chaparro Joyce MD April 06, 2018 11:07
[2018-04-06] MEDS: oxyCODONE/ACETAMINOPHEN 5 MG/325 MG TAB PO PRN (21:48)
[2018-04-07] VITALS (25 sets, daily range): BP systolic 124–150; BP diastolic 59–68; PULSE 59–98; RESP 15–16; TEMP 97.6–98.1; O2SAT 97–100
[2018-04-07] MEDS: CHLORHEXIDINE GLUCONATE 2 % 1 PACK (2 CLOTHS) TOP SCH (03:50)
[2018-04-07] MEDS: cefTRIAXone INJ 1,000 MG in SODIUM CHLORIDE 0.9% INJ 100 ML IV SCH (05:04)
[2018-04-07] MEDS: INSULIN ASPART SUPPLEMENTAL SCALE SQ SCH ×4 (08:00→21:00)
--- NOTE | 2018-04-07 08:26 | PD.CARD.PN ---
Subjective Subjective Remarks denies chest pain, sob or palpitations. renal function improving. no events on telemetry (Lisa Ellis) Objective Medications Current Medications Medications (Trade) Dose Ordered Sig/Yuki Route Start Time Stop Time Status Last Admin (NS Flush) 2 ml UNSCH PRN IV FLUSH 03/31/18 10:45 (NS Flush) 2 ml BID IV FLUSH 03/31/18 21:00 04/06/18 10:08 (Tylenol) 650 mg Q6H PRN PO 03/31/18 10:45 (Duoneb Neb) 1 ampule Q2HR NEB PRN NEB 03/31/18 10:45 (Heparin Inj) 5,000 units Q12H SQ 03/31/18 11:00 04/06/18 12:44 ([facility] Nursing Information) 1 Q361D XX 03/31/18 10:45 03/31/18 10:45 (Chlorhexidine 2% Cloth) Taper DAILY@04 TOP 04/01/18 04:00 03/28/19 03:59 (Chlorhexidine 2% Cloth) 3 pack UNSCH PRN TOP 03/31/18 10:45 (Ecotrin Ec) 81 mg DAILY PO 04/01/18 09:00 04/06/18 10:07 (Symbicort 160-4.5 Mcg Inh) 2 puff Q12HR INH 03/31/18 21:00 04/06/18 21:44 (Vitamin D3) 2,000 units DAILY PO 04/01/18 09:00 04/06/18 10:06 (Plavix) 75 mg DAILY PO 04/01/18 09:00 04/06/18 10:07 (Colace) 100 mg BID PO 03/31/18 21:00 04/06/18 10:08 (Percocet 5-325 Mg) 1 tab Q4H PRN PO 03/31/18 10:45 04/06/18 21:48 (D50w (Vial) Inj) 50 ml UNSCH PRN IV PUSH 03/31/18 11:00 (Glucagon Inj) 1 mg UNSCH PRN OTHER 03/31/18 11:00 (Pill Splitter) 1 ea UNSCH PRN OTHER 03/31/18 11:00 Sodium Chloride 1,000 ml @ 100 mls/hr Q10H IV 04/01/18 06:45 04/06/18 20:33 (Pepcid) 10 mg Q12HR PO 04/01/18 21:00 04/06/18 21:43 (Lopressor) 25 mg Q12HR PO 04/01/18 21:00 04/06/18 21:43 (NovoLOG SUPPLEMENTAL SCALE) 1 ACHS SQ 04/03/18 12:00 04/06/18 12:44 (Ferrous Sulfate) 325 mg DAILY PO 04/04/18 13:30 04/06/18 10:08 Ceftriaxone Sodium 1000 mg/ Sodium Chloride 100 ml @ 200 mls/hr Q24H IV 04/05/18 04:00 04/07/18 05:04 (Zofran Odt) 4 mg Q6H PRN PO 04/05/18 15:45 04/05/18 17:48 (Megace) 40 mg Q12HR PO 04/05/18 21:00 04/06/18 21:42 Vital Signs / I&O Vital Signs Date Time Temp Pulse Resp B/P (MAP) Pulse Ox O2 Delivery O2 Flow Rate FiO2 04/07/18 06:10 66 04/07/18 05:10 74 04/07/18 04:04 64 04/07/18 03:15 66 04/07/18 02:24 61 04/07/18 01:17 62 04/07/18 01:15 97.6 65 124/59 (80) 100 04/07/18 00:00 69 04/06/18 23:00 61 04/06/18 22:00 72 04/06/18 21:00 71 04/06/18 20:00 66 04/06/18 19:00 97.9 75 144/66 (92) 100 04/06/18 19:00 69 04/06/18 18:00 68 04/06/18 17:00 77 04/06/18 16:00 70 04/06/18 15:00 98.2 81 17 150/74 (99) 99 04/06/18 15:00 68 04/06/18 14:00 63 04/06/18 13:00 64 04/06/18 12:00 66 04/06/18 11:00 98.0 67 14 143/64 (90) 97 04/06/18 11:00 97 Room Air 04/06/18 11:00 79 04/06/18 10:00 94 04/06/18 09:00 91 I/O 04/06/18 04/06/18 04/06/18 04/07/18 04/07/18 04/07/18 07:00 15:00 23:00 07:00 15:00 23:00 Intake Total 950 ml 500 ml 920 ml Output Total 700 ml 700 ml 500 ml Balance 250 ml -200 ml 420 ml Intake Oral 50 ml 500 ml 120 ml IV Total 900 ml 800 ml Output Urine Total 700 ml 700 ml 500 ml # Bowel Movements 0 Physical Exam GENERAL: SKIN: Warm and dry. HEAD: Atraumatic. Normocephalic. EYES: Pupils equal and round. No scleral icterus. ENT: No nasal bleeding or discharge. NECK: Trachea midline. No JVD. CARDIOVASCULAR: Regular rate and rhythm. systolic murmur II/ RESPIRATORY: No accessory muscle use. Clear to auscultation. Breath sounds equal bilaterally. GASTROINTESTINAL: Abdomen soft, non-tender, nondistended. Hepatic and splenic margins not palpable. MUSCULOSKELETAL: Extremities without clubbing, cyanosis, or edema. No obvious deformities. NEUROLOGICAL: Awake and alert. stable dysarthria PSYCHIATRIC: Appropriate mood and affect; insight and judgment normal. (Lisa Ellis) Assessment and Plan Problem List: (1) Dehydration ICD Codes: E86.0 - Dehydration (2) Aortic stenosis ICD Codes: I35.0 - Nonrheumatic aortic (valve) stenosis (3) CAD (coronary artery disease) ICD Codes: I25.10 - Atherosclerotic heart disease of [place] coronary artery without angina pectoris (4) Diastolic CHF ICD Codes: I50.30 - Unspecified diastolic (congestive) heart failure (5) Acute on chronic kidney failure ICD Codes: N17.9 - Acute kidney failure, unspecified; N18.9 - Chronic kidney disease, unspecified Assessment and Plan 77 yo M with CAD, COPD, CKD, CHF and severe who recently underwent TAVR on . 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 severe - s/p TAVR 03/11/18 no chest pain cont asa, plavix, bb EF 65-70% no NSVT seen on tele overnight clinically improving and stable cardiac-salas ARF- nephrology following creatinine down to 2.1 oral intake improving on thickened liquids receiving ST/PT/OT recommend inpatient rehab +UTI, receiving antibiotic (Lisa Ellis) Assessment and Plan will sign off call with further questions FU with dr [facility] (Ty Alberto MD) Problem Qualifiers (1) Acute on chronic kidney failure: Lisa Ellis April 07, 2018 08:26 Ty Alberto MD April 07, 2018 12:00
[2018-04-07] MEDS: ASPIRIN EC 81 MG TABEC PO SCH (09:03)
[2018-04-07] MEDS: SODIUM CHLORIDE 0.9% FLUSH 10 ML FLUSH IV FLUSH SCH ×2 (09:03→21:09)
[2018-04-07] MEDS: DOCUSATE SODIUM 100 MG CAP PO SCH ×2 (09:03→21:00)
[2018-04-07] MEDS: CLOPIDOGREL 75 MG TAB PO SCH (09:05)
[2018-04-07] MEDS: CHOLECALCIFEROL (VIT D3) 1000 UNIT TAB PO SCH (09:05)
[2018-04-07] MEDS: MEGESTROL ACETATE 40 MG TAB PO SCH ×2 (09:05→21:09)
[2018-04-07] MEDS: METOPROLOL TARTRATE 25 MG TAB PO SCH ×2 (09:05→21:10)
[2018-04-07] MEDS: FERROUS SULFATE 325 MG (65 MG ELEMENTAL IRON) TAB PO SCH (09:05)
[2018-04-07] MEDS: BUDESONIDE-FORMOTEROL 160/4.5 MCG INHALER INH SCH ×2 (09:05→21:09)
[2018-04-07] MEDS: FAMOTIDINE 20 MG TAB PO SCH ×2 (09:05→21:09)
[2018-04-07] MEDS: SODIUM CHLOR 0.45% 1000 ML INJ 1,000 ML IV SCH (09:06)
[2018-04-07] MEDS: HEPARIN SODIUM - SQ 10,000 UNITS/ML VIAL SQ SCH ×2 (11:28→23:24)
--- NOTE | 2018-04-07 12:17 | HHI.NPPN ---
Subjective History of Present Illness 77-year-old with CVA right hemiparesis history of TAVR Objective Data Data Vital Signs Date Time Temp Pulse Resp B/P (MAP) Pulse Ox O2 Delivery O2 Flow Rate FiO2 04/07/18 10:00 75 04/07/18 09:00 88 04/07/18 08:00 79 04/07/18 08:00 97.6 76 15 144/63 (90) 99 04/07/18 07:00 59 04/07/18 06:10 66 04/07/18 05:10 74 04/07/18 04:04 64 04/07/18 03:15 66 04/07/18 02:24 61 04/07/18 01:17 62 04/07/18 01:15 97.6 65 124/59 (80) 100 04/07/18 00:00 69 04/06/18 23:00 61 04/06/18 22:00 72 04/06/18 21:00 71 04/06/18 20:00 66 04/06/18 19:00 97.9 75 144/66 (92) 100 04/06/18 19:00 69 04/06/18 18:00 68 04/06/18 17:00 77 04/06/18 16:00 70 04/06/18 15:00 98.2 81 17 150/74 (99) 99 04/06/18 15:00 68 04/06/18 14:00 63 04/06/18 13:00 64 -: 04/06/18 0508 04/06/18 0508 Physical Exam General Appearance: Well Developed, Well Nourished Pulmonary Resp Exam: Clear Bilaterally Cardiology CV Exam: Regular, Normal Sinus Rhythm Gastrointestinal/Abdomen GI Exam: Soft, Non-Tender, Bowel Sounds Present Extremeties Extremities Exam: No Edema Neurologic Neuro Exam: Alert, Awake Assessment/Plan Problem List: (1) Acute renal failure ICD Codes: N17.9 - Acute kidney failure, unspecified Plan: Patient has creatinine declined to 2.1 continue to hydrate trying to eat still c/o weakness Avoid nephrotoxins UTI On Ceftriaxone grp D Enterococcus need Ampicillin dc Ceftriaxone and use Unasyn 1.5 gm bid History of recent CVA History of TAVR (2) Dehydration ICD Codes: E86.0 - Dehydration Plan: Patient on normal saline at 150 cc an hour (3) S/P TAVR (transcatheter aortic valve replacement) ICD Codes: Z95.2 - Presence of prosthetic heart valve Plan: Recent placement earlier this month (4) CVA (cerebral vascular accident) ICD Codes: I63.9 - Cerebral infarction, unspecified Plan: Continue to monitor May need feeding tube placement Problem Qualifiers (1) CVA (cerebral vascular accident): Chaparro Joyce MD April 07, 2018 12:17
[2018-04-07] MEDS ORDERED: [UNRECOGNIZED DRUG - REMARK] SCH (12:30)
[2018-04-07] MEDS: AMPICILLIN-SULBACTAM INJ 1,500 MG in SODIUM CHLORIDE 0.9% INJ 100 ML IV SCH ×2 (14:42→21:09)
--- NOTE | 2018-04-07 16:24 | HHI.PR ---
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 He then underwent TAVR by Dr. Alberto on above date. Post op developed acute CVA, had right facial droop and almost flaccid right upper extremity paralysis, significant weakness of right lower extremity. He gradually made improvement and was able to regain some strength of the upper extremity and was able to walk with a walker. He was eventually discharged to rehab facility on 03/17/2018. Apparently was discharged home after a week, he underwent outpatient lab work today which showed a creatinine approximately 6. With this information patient was admitted directly to the [facility] for further workup. Labs here at [facility] showed BUN 162 and creatinine 6.96. Clinical picture is more consistent with dehydration, prerenal azotemia and BUN/ creatinine ratio of 23.5. FeNa pending. gives additional history of poor p.o. intake over the last 1 week. Patient does not have any significant acidosis and no acute indication for hemodialysis at this time. I have ordered 2 L normal saline bolus, and we will continue maintenance fluid at 125 ml per hour. Subjective: 04/01: resting comfortably. Cr improving slowly. very dehydrated and continues to appear volume deplete. not taking adequate po. 04/02: Sitting up in chair good urine output. BUN/creatinine improved 89/4.11, sodium 146. Continue IV fluid half-normal saline but reduce rate to 100 mL/h. tolerating p.o. intake better now per at bedside 04/03: clinically improving. resting comfortably. denies complaints. ROS negative. Cr continues to slowly come down. sodium remains elevated: likely poor renal ability to excrete sodium in the setting of resolving DOREEN. although physical therapy recommends home with home health, OT recommends OT at rehab, and given that he became severely dehydrated at home, may need to consider inpatient rehab for a short time to ensure his basic ADLs are being met. 04/04. Patient says he is feeling all right. Denies any chest pain or shortness of breath. 5/27. Nursing reports some nausea this morning which has resolved. Patient says he is feeling all right. Denies any chest pain or shortness of breath. Denies nausea currently. bm yesterday. 04/06. No acute events. No nausea today. Patient denies any chest pain shortness of breath he says he does not want to be bothered overnight. 04/07. No acute events per nursing. Patient says he is feeling well. No complaints. Objective Vital Signs Date Time Temp Pulse Resp B/P (MAP) Pulse Ox O2 Delivery O2 Flow Rate FiO2 04/07/18 15:00 60 04/07/18 15:00 97.9 67 16 150/65 (93) 97 04/07/18 14:00 60 04/07/18 13:00 75 04/07/18 12:00 74 04/07/18 11:00 98.1 78 16 145/64 (91) 98 04/07/18 11:00 73 04/07/18 10:00 75 04/07/18 09:00 88 04/07/18 08:00 79 04/07/18 08:00 97.6 76 15 144/63 (90) 99 04/07/18 07:00 59 04/07/18 06:10 66 04/07/18 05:10 74 04/07/18 04:04 64 04/07/18 03:15 66 04/07/18 02:24 61 04/07/18 01:17 62 04/07/18 01:15 97.6 65 124/59 (80) 100 04/07/18 00:00 69 04/06/18 23:00 61 04/06/18 22:00 72 04/06/18 21:00 71 04/06/18 20:00 66 04/06/18 19:00 97.9 75 144/66 (92) 100 04/06/18 19:00 69 04/06/18 18:00 68 04/06/18 17:00 77 I/O 04/06/18 04/06/18 04/06/18 04/07/18 04/07/18 04/07/18 07:00 15:00 23:00 07:00 15:00 23:00 Intake Total 950 ml 500 ml 920 ml Output Total 700 ml 700 ml 500 ml Balance 250 ml -200 ml 420 ml Intake Oral 50 ml 500 ml 120 ml IV Total 900 ml 800 ml Output Urine Total 700 ml 700 ml 500 ml # Bowel Movements 0 Result Diagram: 04/06/18 0508 04/06/18 0508 Objective Remarks GENERAL: Patient sitting up in chair. Appears comfortable. Still with halting speech, continues improving. Smiling. at bedside. SKIN: Warm and dry. HEAD: Normocephalic. EYES: No scleral icterus. No injection or drainage. NECK: Supple, trachea midline. No JVD. CARDIOVASCULAR: Regular rate and rhythm without murmurs, gallops, or rubs. RESPIRATORY: Breath sounds equal bilaterally. No accessory muscle use. GASTROINTESTINAL: Abdomen soft, non-tender, nondistended. MUSCULOSKELETAL: No cyanosis, or edema. Right-sided weakness, 4-5 strength on the right, 5 out of 5 on the left. No change BACK: Nontender without obvious deformity. No CVA tenderness. A/P Assessment and Plan 77YO w/ Right MCA CVA following TAVR, NOW readmitted with a DOREEN. improving. 04/04. Creatinine improving 3.36. Continue IV fluids as per nephrology. Appreciate nephrology assistance. Suspect patient would benefit from rehab admission Assessment: 77-year-old male status post transcatheter aortic valve replacement , complicated by acute left MCA stroke on 03/11/18 now with acute pre-renal DOREEN on CKD. some improvements, although remains dehydrated. continue ivf. speech consult for calorie counts and re-eval of swallowing function. //Left MCA stroke post TAVR 03/11/18 Continue aspirin Plavix Neurology Dr. Rodríguez has seen last admission PT/OT/Speech -Continue aspirin. = Neuro status appears stable. //Status post transcatheter aortic valve replacement 03/11 with common iliac access Dehydration On 11/11 NS at 150 cc/hr. Reduce rate to 100 ml per hour with improved PO intake Holding lisinopril and Lasix Continue aspirin, Plavix //Poor PO intake - speech eval for swallowing and dietary for calorie counting. -P.o. intake improving per = Continue pured diet with nectar thickened liquids. P.o. intake continues improving. Appreciate dietary assistance. = 04/05. We will add Megace to improve p.o. intake. = P.o. intake appears to be adequate. Continue to monitor. //UTI. Enterococcus. Started on Augmentin by nephrology. Appreciate assistance. //Acute on Chronic kidney disease Prerenal continue ivf. renal u/s: normal. Nephrology Dr. Joyce = Creatinine improving. 2.155.4 early on admission continue to monitor. = 04/06. Will remove Alvarez. Postvoid residual bladder scan this afternoon. = Follow-up labs tomorrow. //Hypernatremia - likely poor renal clearance of sodium - continue 1/2 NS. continue daily bmp and electrolyte monitoring. = Improving. Sodium 142. Continue to monitor. Continue half normal saline. //Hypokalemia -Resolved after placement. //COPD Nebs PRN, Aggressive pulmonary toilet. Add EzPAP, acapella Oxygen by nasal cannula to keep SPO2 greater than 90% //Hypertension Hold home antihypertensives //Hyperlipidemia Hold statins at this time due to severe dehydration and renal failure //Diabetes Sliding-scale insulin //Coronary artery disease Aspirin, Plavix as above //GERD Famotidine, Heparin sq Discharge Planning I think patient would benefit from inpatient rehab admission. OT, PT following. PT previously recommended home health, however high risk of deterioration going home. Pending insurance auth = 04/07. Discussed with case management. Waiting for off. Patient will need to complete course of Augmentin. Alok Ram MD April 07, 2018 16:24
[2018-04-08] VITALS (32 sets, daily range): BP systolic 146–168; BP diastolic 64–99; PULSE 61–100; RESP 16–19; TEMP 97.7–98.4; O2SAT 100
[2018-04-08] MEDS: CHLORHEXIDINE GLUCONATE 2 % 1 PACK (2 CLOTHS) TOP SCH (04:00)
[2018-04-08 05:09] LABS: AUTOMATED NEUTROPHIL # 3.3 TH/MM3 (1.8-7.7); BASOPHIL % 0.5 % (0.0-2.0); EOSINOPHIL # 0.6 TH/MM3 (0-0.4); EOSINOPHIL % 11.4 % (0.0-4.0); HEMATOCRIT 23.7 % (39.0-51.0); HEMOGLOBIN 7.9 GM/DL (13.0-17.0); LYMPHOCYTE # 1.3 TH/MM3 (1.0-4.8); MEAN CELL VOLUME 90.2 FL (80.0-100.0); MEAN CORPUSCULAR HEMOGLOBIN 30.3 PG (27.0-34.0); MEAN CORPUSCULAR HGB CONC 33.5 % (32.0-36.0); MEAN PLATELET VOLUME 9.9 FL (7.0-11.0); MONO % 7.6 % (0.0-8.0); MONOCYTE # 0.4 TH/MM3 (0-0.9); NEUT % 57.5 % (16.0-70.0); PLATELET COUNT 112 TH/MM3 (150-450); RED BLOOD COUNT 2.63 MIL/MM3 (4.50-5.90); RED CELL DISTRIBUTION WIDTH 16.2 % (11.6-17.2); WHITE BLOOD COUNT 5.7 TH/MM3 (4.0-11.0)
[2018-04-08 05:28] LABS: BICARBONATE 24.2 MEQ/L (21.0-32.0); CALCIUM 8.2 MG/DL (8.5-10.1); CREATININE 1.93 MG/DL (0.60-1.30)
[2018-04-08 05:29] LABS: PHOSPHORUS 2.3 MG/DL (2.5-4.9)
[2018-04-08] MEDS ORDERED: PANTOPRAZOLE SODIUM 40 MG VIAL IV PUSH ONE (07:15)
[2018-04-08] MEDS: INSULIN ASPART SUPPLEMENTAL SCALE SQ SCH ×4 (08:00→21:00)
[2018-04-08] MEDS: BUDESONIDE-FORMOTEROL 160/4.5 MCG INHALER INH SCH ×2 (08:27→21:14)
[2018-04-08] MEDS: SODIUM CHLOR 0.45% 1000 ML INJ 1,000 ML IV SCH ×2 (08:27→20:31)
[2018-04-08] MEDS: AMPICILLIN-SULBACTAM INJ 1,500 MG in SODIUM CHLORIDE 0.9% INJ 100 ML IV SCH ×2 (08:28→21:16)
[2018-04-08] MEDS: ASPIRIN EC 81 MG TABEC PO SCH (08:34)
[2018-04-08] MEDS: CLOPIDOGREL 75 MG TAB PO SCH (08:34)
[2018-04-08] MEDS: SODIUM CHLORIDE 0.9% FLUSH 10 ML FLUSH IV FLUSH SCH ×2 (08:34→21:15)
[2018-04-08] MEDS: MEGESTROL ACETATE 40 MG TAB PO SCH ×2 (08:34→21:14)
[2018-04-08] MEDS: DOCUSATE SODIUM 100 MG CAP PO SCH ×2 (08:34→21:00)
[2018-04-08] MEDS: METOPROLOL TARTRATE 25 MG TAB PO SCH ×2 (08:34→21:15)
[2018-04-08] MEDS: FERROUS SULFATE 325 MG (65 MG ELEMENTAL IRON) TAB PO SCH (08:34)
[2018-04-08] MEDS: CHOLECALCIFEROL (VIT D3) 1000 UNIT TAB PO SCH (08:34)
[2018-04-08 09:06] LABS: RETIC # 50.5 MIL/L (20.0-150.0); RETIC % 1.9 % (0.4-3.0)
[2018-04-08 09:53] LABS: IRON (FE) 53 MCG/DL (65-175); TOTAL IRON BINDING CAPACITY 171 MCG/DL (250-450)
[2018-04-08 10:17] LABS: FERRITIN 197 NG/ML (26-388)
[2018-04-08] MEDS: HEPARIN SODIUM - SQ 10,000 UNITS/ML VIAL SQ SCH (10:53)
[2018-04-08] MEDS ORDERED: SODIUM CHLOR 0.9% 250 ML INJ 250 ML IV ONE (12:45)
--- NOTE | 2018-04-08 12:46 | PD.CONS ---
HPI History of Present Illness This is a 77 year old M with PMH significant for aortic stenosis S/P TAVR on 03/11 who developed a postoperative acute L MCA stroke who is currently on Plavix and ASA. Pt was admitted to the hospital because of outpatient labs which revealed an acute kidney injury. Our service has been consulted to evaluate patient for anemia. Pt denies nausea, vomiting, acid reflux, heartburn, abdominal pain. States has been having some constipation, but seems fairly well controlled with Dulcolax at home and Colace while inpatient. He also reports some dysphagia which began after his recent stroke. Does have history of dysphagia but reportedly had no problems since an EGD with dilatation done approximately ten years ago. Last EGD was done at this time, per possible findings of esophageal stricture. Last colonoscopy a few years ago and he thinks the exam was normal. Denies any personal history of anemia, has never been on iron supplement in the past, denies previous blood transfusions. Reports alcohol 1-2 times a week. Denies smoking cigarettes and illicit drug use. Does not take NSAIDs. Denies family history significant for colon cancer. (Lissett De Leon) PFSH Past Medical History Aortic valve stenosis L MCA stroke CAD CKD COPD DM Hyperlipidemia HTN Ischemic cardiomyopathy Past Surgical History TAVR Sternotomy Colonoscopy EGD (Lissett De Leon) Coded Allergies: [id number] Reductase Inhibitor (Verified Adverse Reaction, Unknown, MUSCLE ACHES, 03/11/18) Social History ETOH- once or twice a week Denies nicotine use (Lissett De Leon) Review of Systems Gastrointestinal: COMPLAINS OF: Constipation, Difficulty Swallowing, DENIES: Abdominal pain, Black stools, Bloody stools, Diarrhea, Nausea, Vomiting, Odynophagia, Swelling of Abdomen, Heartburn, Hematemesis (Lsisett De Leon) GI Exam Vitals I&O Vital Signs Date Time Temp Pulse Resp B/P (MAP) Pulse Ox O2 Delivery O2 Flow Rate FiO2 04/08/18 12:00 73 04/08/18 11:00 97.9 66 19 152/66 (94) 100 04/08/18 11:00 70 04/08/18 10:00 76 04/08/18 09:00 83 04/08/18 08:00 73 04/08/18 07:00 98.1 83 17 149/67 (94) 100 04/08/18 07:00 61 04/08/18 06:09 82 04/08/18 05:12 63 04/08/18 04:03 78 04/08/18 04:03 97.9 78 158/69 (98) 100 04/08/18 03:00 71 04/08/18 02:00 65 04/08/18 01:00 64 04/08/18 00:25 97.8 72 146/67 (93) 100 04/08/18 00:00 72 04/07/18 23:00 63 04/07/18 22:00 76 04/07/18 21:00 64 04/07/18 20:00 73 04/07/18 19:00 98 04/07/18 19:00 97.9 69 150/68 (95) 100 04/07/18 18:00 88 04/07/18 17:00 70 04/07/18 16:00 77 04/07/18 15:00 60 04/07/18 15:00 97.9 67 16 150/65 (93) 97 04/07/18 14:00 60 04/07/18 13:00 75 I/O 04/07/18 04/07/18 04/07/18 04/08/18 04/08/18 04/08/18 07:00 15:00 23:00 07:00 15:00 23:00 Intake Total 920 ml 720 ml 553 ml 210 ml Output Total 500 ml 500 ml 300 ml Balance 420 ml 220 ml 253 ml 210 ml Intake Oral 120 ml 720 ml IV Total 800 ml 553 ml 210 ml Output Urine Total 500 ml 500 ml 300 ml Imaging Last Impressions Renal Ultrasound 03/31/18 1247 Signed Impressions: CONCLUSION: 1. Unremarkable bilateral renal ultrasound. Laboratory Test 04/08/18 04:10 White Blood Count 5.7 TH/MM3 Red Blood Count 2.63 MIL/MM3 Hemoglobin 7.9 GM/DL Hematocrit 23.7 % Mean Corpuscular Volume 90.2 FL Mean Corpuscular Hemoglobin 30.3 PG Mean Corpuscular Hemoglobin Concent 33.5 % Red Cell Distribution Width 16.2 % Platelet Count 112 TH/MM3 Mean Platelet Volume 9.9 FL Neutrophils (%) (Auto) 57.5 % Lymphocytes (%) (Auto) 23.0 % Monocytes (%) (Auto) 7.6 % Eosinophils (%) (Auto) 11.4 % Basophils (%) (Auto) 0.5 % Neutrophils # (Auto) 3.3 TH/MM3 Lymphocytes # (Auto) 1.3 TH/MM3 Monocytes # (Auto) 0.4 TH/MM3 Eosinophils # (Auto) 0.6 TH/MM3 Basophils # (Auto) 0.0 TH/MM3 CBC Comment DIFF FINAL Differential Comment Reticulocyte Count 1.9 % Absolute Reticulocyte Count 50.5 MIL/L Blood Urea Nitrogen 22 MG/DL Creatinine 1.93 MG/DL Random Glucose 99 MG/DL Calcium Level 8.2 MG/DL Phosphorus Level 2.3 MG/DL Sodium Level 145 MEQ/L Potassium Level 3.8 MEQ/L Chloride Level 113 MEQ/L Carbon Dioxide Level 24.2 MEQ/L Anion Gap 8 MEQ/L Estimat Glomerular Filtration Rate 34 ML/MIN Iron Level 53 MCG/DL Total Iron Binding Capacity 171 MCG/DL Percent Iron Saturation 31.0 % Ferritin 197 NG/ML Vitamin B12 Level 341 PG/ML Date/Time Source Procedure Growth Status 04/04/18 19:30 Urine Catheterized Urine Urine Culture - Final Enterococcus Faecalis Complete Physical Examination HEENT: Normocephalic; atraumatic CHEST: Even/unlabored CARDIAC: RRR ABDOMEN: Soft, nondistended, nontender; bowel sounds active SKIN: Normal; no rash; no jaundice. IT BUSINESS PROCESS ARCHITECT: Slurred speech, some aphasia (Lissett De Leon) Assessment and Plan Plan Assessment: - Anemia, normocytic Pt denies history of anemia, taking iron supplements in the past, previous blood transfusions Last EGD approximately 10 years ago, thinks possible esophageal stricture, dilated with improvement in dysphagia. Last colonoscopy a few years ago and thinks normal exam. - Dysphagia- Began after recent stroke, states remote history of dysphagia which resolved after dilatation approximately 10 years ago - TAVR on 03/11/18 and post op L MCA stroke- on Plavix and ASA Discussed with Dr. Alberto he states pt is cleared for EGD and colonoscopy, unable to stop Plavix at this time Plan: EGD and colonoscopy tomorrow Obtain consent Clear liquids today Golytely prep NPO after MN Transfuse 1 U PRBCs now Monitor H/H Further recommendations based on clinical course and results of above Pt has been seen and examined by myself and Dr. Lind and this note is written on his behalf (Lissett De Leon) Physician Comments Seen and examined with NOEMI, has reluctanatly agreed to egd/colonoscopy. Clearance obtained form Dr. Alberto, plavix/asa will not be stopped. Monitor labs , transfuse as needed. Discussed with pt. and family at the bedside. Thank you (Gwen Lind MD) Lissett De Leon April 08, 2018 12:46 Gwen Lind MD April 08, 2018 16:38
[2018-04-08] MEDS ORDERED: PEG (High)/E-LYTE SOLN 4000 ML BTL PO ONE (13:50)
[2018-04-08 16:13] LABS: FOLATE 8.5 NG/ML (3.1-17.5)
--- NOTE | 2018-04-08 18:46 | HHI.PR ---
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 He then underwent TAVR by Dr. Alberto on above date. Post op developed acute CVA, had right facial droop and almost flaccid right upper extremity paralysis, significant weakness of right lower extremity. He gradually made improvement and was able to regain some strength of the upper extremity and was able to walk with a walker. He was eventually discharged to rehab facility on 03/17/2018. Apparently was discharged home after a week, he underwent outpatient lab work today which showed a creatinine approximately 6. With this information patient was admitted directly to the [facility] for further workup. Labs here at [facility] showed BUN 162 and creatinine 6.96. Clinical picture is more consistent with dehydration, prerenal azotemia and BUN/ creatinine ratio of 23.5. FeNa pending. gives additional history of poor p.o. intake over the last 1 week. Patient does not have any significant acidosis and no acute indication for hemodialysis at this time. I have ordered 2 L normal saline bolus, and we will continue maintenance fluid at 125 ml per hour. Subjective: 04/01: resting comfortably. Cr improving slowly. very dehydrated and continues to appear volume deplete. not taking adequate po. 04/02: Sitting up in chair good urine output. BUN/creatinine improved 89/4.11, sodium 146. Continue IV fluid half-normal saline but reduce rate to 100 mL/h. tolerating p.o. intake better now per at bedside 04/03: clinically improving. resting comfortably. denies complaints. ROS negative. Cr continues to slowly come down. sodium remains elevated: likely poor renal ability to excrete sodium in the setting of resolving DOREEN. although physical therapy recommends home with home health, OT recommends OT at rehab, and given that he became severely dehydrated at home, may need to consider inpatient rehab for a short time to ensure his basic ADLs are being met. 04/04. Patient says he is feeling all right. Denies any chest pain or shortness of breath. 04/05. Nursing reports some nausea this morning which has resolved. Patient says he is feeling all right. Denies any chest pain or shortness of breath. Denies nausea currently. bm yesterday. 04/06. No acute events. No nausea today. Patient denies any chest pain shortness of breath he says he does not want to be bothered overnight. 04/07. No acute events per nursing. Patient says he is feeling well. No complaints. 04/08 Patient says he is feeling all right. Denies any chest pain or shortness of breath. Denies nausea or vomiting. Denies any laila bleeding. Objective Vital Signs Date Time Temp Pulse Resp B/P (MAP) Pulse Ox O2 Delivery O2 Flow Rate FiO2 04/08/18 18:15 74 159/70 04/08/18 18:00 80 164/99 04/08/18 18:00 74 04/08/18 17:30 70 164/84 04/08/18 17:15 72 162/64 04/08/18 17:06 80 04/08/18 16:48 158/70 04/08/18 16:45 98.4 71 17 163/74 100 04/08/18 16:31 72 17 165/74 100 04/08/18 16:29 98.2 69 18 161/70 100 04/08/18 16:00 63 04/08/18 15:00 97.7 74 17 162/72 (102) 100 04/08/18 15:00 100 04/08/18 14:00 70 04/08/18 13:00 79 04/08/18 12:00 73 04/08/18 11:00 97.9 66 19 152/66 (94) 100 04/08/18 11:00 70 04/08/18 10:00 76 04/08/18 09:00 83 04/08/18 08:00 73 04/08/18 07:00 98.1 83 17 149/67 (94) 100 04/08/18 07:00 61 04/08/18 06:09 82 04/08/18 05:12 63 04/08/18 04:03 78 04/08/18 04:03 97.9 78 158/69 (98) 100 04/08/18 03:00 71 04/08/18 02:00 65 04/08/18 01:00 64 04/08/18 00:25 97.8 72 146/67 (93) 100 04/08/18 00:00 72 04/07/18 23:00 63 04/07/18 22:00 76 04/07/18 21:00 64 04/07/18 20:00 73 04/07/18 19:00 98 04/07/18 19:00 97.9 69 150/68 (95) 100 I/O 04/07/18 04/07/18 04/07/18 04/08/18 04/08/18 04/08/18 07:00 15:00 23:00 07:00 15:00 23:00 Intake Total 920 ml 720 ml 553 ml 210 ml 900 ml Output Total 500 ml 500 ml 300 ml 600 ml Balance 420 ml 220 ml 253 ml 210 ml 300 ml Intake Oral 120 ml 720 ml 480 ml IV Total 800 ml 553 ml 210 ml 415 ml Blood Product IV Normal Saline Flush 5 ml Output Urine Total 500 ml 500 ml 300 ml 600 ml # Bowel Movements 1 Result Diagram: 04/08/1840904/08/18409 Objective Remarks GENERAL: lying in bed. Appears comfortable. Still with halting speech, continues improving. Smiling. at bedside. SKIN: Warm and dry. HEAD: Normocephalic. EYES: No scleral icterus. No injection or drainage. NECK: Supple, trachea midline. No JVD. CARDIOVASCULAR: Regular rate and rhythm without murmurs, gallops, or rubs. RESPIRATORY: Breath sounds equal bilaterally. No accessory muscle use. GASTROINTESTINAL: Abdomen soft, non-tender, nondistended. MUSCULOSKELETAL: No cyanosis, or edema. Right-sided weakness, 4-5 strength on the right, 5 out of 5 on the left. No change BACK: Nontender without obvious deformity. No CVA tenderness. A/P Assessment and Plan 77YO w/ Right MCA CVA following TAVR, NOW readmitted with a DOREEN. improving. Assessment: 77-year-old male status post transcatheter aortic valve replacement , complicated by acute left MCA stroke on 03/11/18 now with acute pre-renal DOREEN on CKD. some improvements, although remains dehydrated. continue ivf. speech consult for calorie counts and re-eval of swallowing function. //Left MCA stroke post TAVR 03/11/18 Continue aspirin Plavix Neurology Dr. Rodríguez has seen last admission PT/OT/Speech -Continue aspirin. = Neuro status appears stable. //Status post transcatheter aortic valve replacement 03/11 with common iliac access Dehydration On 11/11 NS at 150 cc/hr. Reduce rate to 100 ml per hour with improved PO intake Holding lisinopril and Lasix Continue aspirin, Plavix //Poor PO intake - speech eval for swallowing and dietary for calorie counting. -P.o. intake improving per = Continue pured diet with nectar thickened liquids. P.o. intake continues improving. Appreciate dietary assistance. = 04/05. We will add Megace to improve p.o. intake. = P.o. intake appears to be adequate. Continue to monitor. //Anemia. Hemoglobin 7.9, slow downtrend during this admission. Recently started on dual antiplatelet. We will continue to monitor hemoglobin, consult gastroenterology. Plan for colonoscopy. Appreciate assistance. //UTI. Enterococcus. Started on Augmentin by nephrology. Appreciate assistance. //Acute on Chronic kidney disease Prerenal continue ivf. renal u/s: normal. Nephrology Dr. Joyce = Creatinine improving. 2.155.4 early on admission continue to monitor. = 04/06. Will remove Alvarez. Postvoid residual bladder scan this afternoon. = Follow-up labs tomorrow. //Hypernatremia - likely poor renal clearance of sodium - continue 11/11 NS. continue daily bmp and electrolyte monitoring. = Improving. Sodium 142. Continue to monitor. Continue half normal saline. //Hypokalemia -Resolved after placement. //COPD Nebs PRN, Aggressive pulmonary toilet. Add EzPAP, acapella Oxygen by nasal cannula to keep SPO2 greater than 90% //Hypertension Hold home antihypertensives //Hyperlipidemia Hold statins at this time due to severe dehydration and renal failure //Diabetes Sliding-scale insulin //Coronary artery disease Aspirin, Plavix as above //GERD Famotidine, Heparin sq Discharge Planning I think patient would benefit from inpatient rehab admission. OT, PT following. PT previously recommended home health, however high risk of deterioration going home. Pending insurance auth = 04/07. Discussed with case management. Waiting for auth. Patient will need to complete course of Augmentin for uti. =workup for anemia. Alok Ram MD April 08, 2018 18:46
[2018-04-08 21:37] LABS: HEMATOCRIT 29.8 % (39.0-51.0); HEMOGLOBIN 10.2 GM/DL (13.0-17.0)
[2018-04-09] VITALS (24 sets, daily range): BP systolic 156–180; BP diastolic 61–75; PULSE 55–95; RESP 16–20; TEMP 97.8–98.4; O2SAT 96–100
[2018-04-09] MEDS: HEPARIN SODIUM - SQ 10,000 UNITS/ML VIAL SQ SCH ×3 (01:29→23:54)
[2018-04-09] MEDS: CHLORHEXIDINE GLUCONATE 2 % 1 PACK (2 CLOTHS) TOP SCH ×2 (04:00→23:54)
[2018-04-09] MEDS: INSULIN ASPART SUPPLEMENTAL SCALE SQ SCH ×4 (08:00→20:01)
[2018-04-09] MEDS: DOCUSATE SODIUM 100 MG CAP PO SCH ×2 (09:00→19:53)
[2018-04-09] MEDS: AMPICILLIN-SULBACTAM INJ 1,500 MG in SODIUM CHLORIDE 0.9% INJ 100 ML IV SCH ×2 (09:55→20:01)
[2018-04-09] MEDS: CLOPIDOGREL 75 MG TAB PO SCH (09:56)
[2018-04-09] MEDS: SODIUM CHLORIDE 0.9% FLUSH 10 ML FLUSH IV FLUSH SCH ×2 (09:56→19:54)
[2018-04-09] MEDS: PANTOPRAZOLE SOD 20 MG DELAYED RELEASE TAB PO SCH (09:56)
[2018-04-09] MEDS: BUDESONIDE-FORMOTEROL 160/4.5 MCG INHALER INH SCH ×2 (09:56→19:55)
[2018-04-09] MEDS: CHOLECALCIFEROL (VIT D3) 1000 UNIT TAB PO SCH (09:57)
[2018-04-09] MEDS: FERROUS SULFATE 325 MG (65 MG ELEMENTAL IRON) TAB PO SCH (09:57)
[2018-04-09] MEDS: METOPROLOL TARTRATE 25 MG TAB PO SCH ×2 (09:57→19:53)
[2018-04-09] MEDS: ASPIRIN EC 81 MG TABEC PO SCH (09:57)
[2018-04-09] MEDS: MEGESTROL ACETATE 40 MG TAB PO SCH ×2 (09:57→19:54)
[2018-04-09] MEDS ORDERED: LIDOCAINE HCL 1% PF 5 ML SYRINGE OTHER ONE (12:00)
[2018-04-09] MEDS ORDERED: PROPOFOL 200 MG/20 ML AMP IV ONE (12:00)
--- NOTE | 2018-04-09 13:13 | GIPROC ---
[facility] [address] [facility]. [facility], [address] EGD PROCEDURE REPORT EXAM DATE: 04/09/2018 PATIENT NAME: Jeanie Chan MR #: [id number] BIRTHDATE: 1940 ATTENDING: Gwen Lnid MD ORDER #: [id number] [employer] CONSULTANT: China Potter RN STATUS: inpatient INDICATIONS: The patient is a 77 yr old male here for an EGD due to iron deficiency anemia PROCEDURE PERFORMED: EGD w/ biopsy MEDICATIONS: Per Anesthesia and None. TOPICAL ANESTHETIC: CONSENT: The patient understands the risks and benefits of the procedure and understands that these risks include, but are not limited to: sedation, allergic reaction, infection, perforation and/or bleeding. Alternative means of evaluation and treatment include, among others: physical exam, x-rays, and/or surgical intervention. The patient elects to proceed with this endoscopic procedure. medical equipment was checked for proper function. Hand hygiene and appropriate measures for infection prevention was taken. After the risks, benefits and alternatives of the procedure were thoroughly explained, Informed consent was verified, confirmed and timeout was successfully executed by the treatment team. The patient was anesthetized with topical anesthesia and the [employer] [id number] endoscope was introduced through the mouth and advanced to the second portion of the duodenum. Retroflexed views revealed a hiatal hernia The gastroscope was then slowly withdrawn and removed. 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 The stricture was easily traversable. STOMACH: There was erythematous moderate gastritis in the gastric antrum. A biopsy was performed using cold forceps. Sample sent for histology. DUODENUM: Moderate duodenal inflammation was found in the bulb and second portion of the duodenum. ADVERSE EVENTS: There were no complications. IMPRESSIONS: 1. There was a short stricture in the distal esophagus 2. There was erythematous gastritis in the gastric antrum; biopsy was performed 3. Duodenal inflammation was found in the bulb and second portion of the duodenum 4. Retroflexed views revealed a hiatal hernia RECOMMENDATIONS: 1. Await biopsy results. Biopsy results will not be ready for 7-10 days. If you don't hear from us in two weeks, call our office for biopsy results. 2. Anti-reflux regimen 3. Continue PPI 4. Avoid NSAIDS 5. Colonoscopy PATIENT CONDITION: stable DISPOSITION: Inpatient REPEAT EXAM: Return 3 months EGD pending biopsy results Gwen Lind MD eSigned: Gwen Lind MD 04/09/2018 1:13 PM cc: PATIENT NAME: Jeanie Chan MR#: [id number]
[2018-04-09] MEDS ORDERED: amLODIPine BESYLATE 5 MG TAB PO ONE (13:30)
[2018-04-09] MEDS ORDERED: DO NOT ADM ANY ANTICOAGULANT DRUGS PRN (13:30)
--- NOTE | 2018-04-09 14:17 | HHI.NPPN ---
Subjective History of Present Illness 77-year-old with CVA right hemiparesis history of TAVR Objective Data Data 04/09/18 04/10/18 19:00 07:00 Intake Total 200 ml Balance 200 ml IV Total 100 ml Other 100 ml Vital Signs Date Time Temp Pulse Resp B/P (MAP) Pulse Ox O2 Delivery O2 Flow Rate FiO2 04/09/18 14:03 61 04/09/18 14:03 98.4 61 19 156/66 (96) 100 04/09/18 13:45 72 22 138/75 (96) 100 04/09/18 13:29 97.6 67 20 128/78 (95) 97 04/09/18 11:00 98.0 57 19 180/70 (106) 100 04/09/18 11:00 59 04/09/18 10:00 63 04/09/18 09:00 75 04/09/18 08:00 60 04/09/18 07:15 67 18 157/61 (93) 97 04/09/18 07:00 73 04/09/18 06:00 60 04/09/18 05:00 68 04/09/18 04:16 98.3 73 16 158/75 (102) 98 04/09/18 04:00 72 04/09/18 02:56 60 04/09/18 02:00 95 04/09/18 01:00 95 04/09/18 00:00 61 04/09/18 00:00 98.1 79 18 164/74 (104) 96 04/08/18 23:00 61 04/08/18 22:00 64 04/08/18 21:00 73 04/08/18 20:00 62 04/08/18 20:00 98.0 73 16 168/75 (106) 100 04/08/18 20:00 98.0 73 16 168/75 100 04/08/18 19:00 74 04/08/18 18:15 74 159/70 04/08/18 18:00 80 164/99 04/08/18 18:00 74 04/08/18 17:30 70 164/84 04/08/18 17:15 72 162/64 04/08/18 17:06 80 04/08/18 16:48 158/70 04/08/18 16:45 98.4 71 17 163/74 100 04/08/18 16:31 72 17 165/74 100 04/08/18 16:29 98.2 69 18 161/70 100 04/08/18 16:00 63 04/08/18 15:00 97.7 74 17 162/72 (102) 100 04/08/18 15:00 100 -: 04/08/185 04/08/18 0410 Physical Exam General Appearance: Well Developed, Well Nourished Pulmonary Resp Exam: Clear Bilaterally Cardiology CV Exam: Regular, Normal Sinus Rhythm Gastrointestinal/Abdomen GI Exam: Soft, Non-Tender, Bowel Sounds Present Extremeties Extremities Exam: No Edema Neurologic Neuro Exam: Alert, Awake Assessment/Plan Problem List: (1) Acute renal failure ICD Codes: N17.9 - Acute kidney failure, unspecified Plan: Patient has creatinine declined to 1.9 trying to eat still c/o weakness Avoid nephrotoxins UTI grp D Enterococcus on Unasyn 1.5 gm bid History of recent CVA History of TAVR (2) Dehydration ICD Codes: E86.0 - Dehydration Status: Resolved Plan: Patient on normal saline (3) S/P TAVR (transcatheter aortic valve replacement) ICD Codes: Z95.2 - Presence of prosthetic heart valve Plan: Recent placement earlier this month (4) CVA (cerebral vascular accident) ICD Codes: I63.9 - Cerebral infarction, unspecified Plan: Continue to monitor May need feeding tube placement Problem Qualifiers (1) CVA (cerebral vascular accident): Chaparro Joyce MD April 09, 2018 14:17
--- NOTE | 2018-04-09 17:30 | HHI.PR ---
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 He then underwent TAVR by Dr. Alberto on above date. Post op developed acute CVA, had right facial droop and almost flaccid right upper extremity paralysis, significant weakness of right lower extremity. He gradually made improvement and was able to regain some strength of the upper extremity and was able to walk with a walker. He was eventually discharged to rehab facility on 03/17/2018. Apparently was discharged home after a week, he underwent outpatient lab work today which showed a creatinine approximately 6. With this information patient was admitted directly to the [facility]PCU for further workup. Labs here at [facility] showed BUN 162 and creatinine 6.96. Clinical picture is more consistent with dehydration, prerenal azotemia and BUN/ creatinine ratio of 23.5. FeNa pending. gives additional history of poor p.o. intake over the last 1 week. Patient does not have any significant acidosis and no acute indication for hemodialysis at this time. I have ordered 2 L normal saline bolus, and we will continue maintenance fluid at 125 ml per hour. Subjective: 04/01: resting comfortably. Cr improving slowly. very dehydrated and continues to appear volume deplete. not taking adequate po. 04/02: Sitting up in chair good urine output. BUN/creatinine improved 89/4.11, sodium 146. Continue IV fluid half-normal saline but reduce rate to 100 mL/h. tolerating p.o. intake better now per at bedside 04/03: clinically improving. resting comfortably. denies complaints. ROS negative. Cr continues to slowly come down. sodium remains elevated: likely poor renal ability to excrete sodium in the setting of resolving DOREEN. although physical therapy recommends home with home health, OT recommends OT at rehab, and given that he became severely dehydrated at home, may need to consider inpatient rehab for a short time to ensure his basic ADLs are being met. 04/04. Patient says he is feeling all right. Denies any chest pain or shortness of breath. 04/05. Nursing reports some nausea this morning which has resolved. Patient says he is feeling all right. Denies any chest pain or shortness of breath. Denies nausea currently. bm yesterday. 04/06. No acute events. No nausea today. Patient denies any chest pain shortness of breath he says he does not want to be bothered overnight. 04/07. No acute events per nursing. Patient says he is feeling well. No complaints. 04/08 Patient says he is feeling all right. Denies any chest pain or shortness of breath. Denies nausea or vomiting. Denies any laila bleeding. 04/09. S post EGD. Patient says he is feeling well. Denies any chest pain or shortness of breath. Denies nausea or vomiting. Discussed with nursing. Calorie count completed, and dietitian recommends PEG tube Objective Vital Signs Date Time Temp Pulse Resp B/P (MAP) Pulse Ox O2 Delivery O2 Flow Rate FiO2 04/09/18 16:00 63 04/09/18 15:00 98.4 61 20 156/66 (96) 100 04/09/18 15:00 58 04/09/18 14:03 61 04/09/18 14:03 98.4 61 19 156/66 (96) 100 04/09/18 13:45 72 22 138/75 (96) 100 04/09/18 13:29 97.6 67 20 128/78 (95) 97 04/09/18 12:45 57 23 167/73 (104) 98 04/09/18 12:30 54 18 165/68 (100) 98 04/09/18 12:15 54 24 96/52 (67) 98 04/09/18 12:00 59 21 159/66 (97) 98 04/09/18 11:55 97.3 58 20 144/60 (88) 98 04/09/18 11:00 98.0 57 19 180/70 (106) 100 04/09/18 11:00 59 04/09/18 10:00 63 04/09/18 09:00 75 04/09/18 08:00 60 04/09/18 07:15 67 18 157/61 (93) 97 04/09/18 07:00 73 04/09/18 06:00 60 04/09/18 05:00 68 04/09/18 04:16 98.3 73 16 158/75 (102) 98 04/09/18 04:00 72 04/09/18 02:56 60 04/09/18 02:00 95 04/09/18 01:00 95 04/09/18 00:00 61 04/09/18 00:00 98.1 79 18 164/74 (104) 96 04/08/18 23:00 61 04/08/18 22:00 64 04/08/18 21:00 73 04/08/18 20:00 62 04/08/18 20:00 98.0 73 16 168/75 (106) 100 04/08/18 20:00 98.0 73 16 168/75 100 04/08/18 19:00 74 04/08/18 18:15 74 159/70 04/08/18 18:00 80 164/99 04/08/18 18:00 74 04/08/18 17:30 70 164/84 I/O 04/08/18 04/08/18 04/08/18 04/09/18 04/09/18 04/09/18 06:59 14:59 22:59 06:59 14:59 22:59 Intake Total 553 ml 210 ml 1300 ml 420 ml 200 ml Output Total 300 ml 600 ml 275 ml Balance 253 ml 210 ml 700 ml 145 ml 200 ml Intake Oral 480 ml 420 ml IV Total 553 ml 210 ml 415 ml 100 ml Packed Cells 400 ml Blood Product IV Normal Saline Flush 5 ml Other 100 ml Output Urine Total 300 ml 600 ml 275 ml # Voids 1 # Bowel Movements 1 3 Result Diagram: 04/08/18205404/08/18409 Objective Remarks GENERAL: lying in bed. Appears comfortable. Still with halting speech, continues improving. Smiling. at bedside. SKIN: Warm and dry. HEAD: Normocephalic. EYES: No scleral icterus. No injection or drainage. NECK: Supple, trachea midline. No JVD. CARDIOVASCULAR: Regular rate and rhythm without murmurs, gallops, or rubs. RESPIRATORY: Breath sounds equal bilaterally. No accessory muscle use. GASTROINTESTINAL: Abdomen soft, non-tender, nondistended. MUSCULOSKELETAL: No cyanosis, or edema. Right-sided weakness, 4-5 strength on the right, 5 out of 5 on the left. No change BACK: Nontender without obvious deformity. No CVA tenderness. A/P Assessment and Plan 77YO w/ Right MCA CVA following TAVR, NOW readmitted with a DOREEN. improving. Assessment: 77-year-old male status post transcatheter aortic valve replacement , complicated by acute left MCA stroke on 03/11/18 now with acute pre-renal DOREEN on CKD. some improvements, although remains dehydrated. continue ivf. speech consult for calorie counts and re-eval of swallowing function. //Left MCA stroke post TAVR 03/11/18 Continue aspirin Plavix Neurology Dr. Rodríguez has seen last admission PT/OT/Speech -Continue aspirin. = Neuro status appears stable. //Status post transcatheter aortic valve replacement 03/11 with common iliac access Dehydration On 11/11 NS at 150 cc/hr. Reduce rate to 100 ml per hour with improved PO intake Holding lisinopril and Lasix Continue aspirin, Plavix //Poor PO intake - speech eval for swallowing and dietary for calorie counting. -P.o. intake improving per = Continue pured diet with nectar thickened liquids. P.o. intake continues improving. Appreciate dietary assistance. = 04/05. We will add Megace to improve p.o. intake. = P.o. intake appears to be adequate. Continue to monitor. = 04/09. Will add Marinol to help with p.o. intake. Dietitian recommends PEG tube. Family has previously discussed with nephrology this morning and adamantly refused. We will continue to assess p.o. intake. //Anemia. Hemoglobin 7.9, slow downtrend during this admission. Recently started on dual antiplatelet. We will continue to monitor hemoglobin, consult gastroenterology. Plan for colonoscopy. Appreciate assistance. = 04/09. Hemoglobin improved to 10 after transfusion. Labs today still pending. //UTI. Enterococcus. Started on Augmentin by nephrology. Appreciate assistance. //Acute on Chronic kidney disease Prerenal continue ivf. renal u/s: normal. Nephrology Dr. Joyce = Creatinine improving. 2.155.4 early on admission continue to monitor. = 04/06. Will remove Alvarez. Postvoid residual bladder scan this afternoon. = Continue to follow renal function. //Hypernatremia - likely poor renal clearance of sodium - continue 11/11 NS. continue daily bmp and electrolyte monitoring. = Continue to monitor off of IV fluids //Hypokalemia -Resolved after placement. //COPD Nebs PRN, Aggressive pulmonary toilet. Add EzPAP, acapella Oxygen by nasal cannula to keep SPO2 greater than 90% //Hypertension Hold home antihypertensives //Hyperlipidemia Hold statins at this time due to severe dehydration and renal failure //Diabetes Sliding-scale insulin //Coronary artery disease Aspirin, Plavix as above //GERD Famotidine, Heparin sq Discharge Planning I think patient would benefit from inpatient rehab admission. OT, PT following. PT previously recommended home health, however high risk of deterioration going home. = Follow hemoglobin stability = 04/09. Discussed with insurance. Insurance will not cover inpatient rehab. Case management working on SNF. Poor p.o. intake. Family does not want PEG tube. Alok Ram MD April 09, 2018 17:30
[2018-04-09] MEDS: SODIUM CHLOR 0.45% 1000 ML INJ 1,000 ML IV SCH (18:04)
[2018-04-09 20:03] LABS: AUTOMATED NEUTROPHIL # 3.1 TH/MM3 (1.8-7.7); BASOPHIL % 0.8 % (0.0-2.0); EOSINOPHIL # 0.6 TH/MM3 (0-0.4); EOSINOPHIL % 10.4 % (0.0-4.0); HEMATOCRIT 29.3 % (39.0-51.0); HEMOGLOBIN 9.6 GM/DL (13.0-17.0); LYMPH % 21.5 % (9.0-44.0); LYMPHOCYTE # 1.1 TH/MM3 (1.0-4.8); MEAN CORPUSCULAR HEMOGLOBIN 28.7 PG (27.0-34.0); MEAN PLATELET VOLUME 9.6 FL (7.0-11.0); MONO % 8.4 % (0.0-8.0); MONOCYTE # 0.4 TH/MM3 (0-0.9); NEUT % 58.9 % (16.0-70.0); PLATELET COUNT 128 TH/MM3 (150-450); RED BLOOD COUNT 3.37 MIL/MM3 (4.50-5.90); RED CELL DISTRIBUTION WIDTH 17.8 % (11.6-17.2); WHITE BLOOD COUNT 5.3 TH/MM3 (4.0-11.0)
[2018-04-09 20:32] LABS: PHOSPHORUS 2.3 MG/DL (2.5-4.9)
[2018-04-09 20:49] LABS: BICARBONATE 20.5 MEQ/L (21.0-32.0); CALCIUM 8.6 MG/DL (8.5-10.1); CREATININE 1.75 MG/DL (0.60-1.30); MAGNESIUM 1.5 MG/DL (1.5-2.5)
[2018-04-10] VITALS (24 sets, daily range): BP systolic 138–161; BP diastolic 57–70; PULSE 58–116; RESP 16–20; TEMP 97.4–98.1; O2SAT 96–100
[2018-04-10 05:58] LABS: BASOPHIL % 0.6 % (0.0-2.0); EOSINOPHIL # 0.6 TH/MM3 (0-0.4); EOSINOPHIL % 10.8 % (0.0-4.0); HEMOGLOBIN 9.6 GM/DL (13.0-17.0); LYMPHOCYTE # 1.3 TH/MM3 (1.0-4.8); MEAN CELL VOLUME 87.3 FL (80.0-100.0); MEAN CORPUSCULAR HEMOGLOBIN 29.8 PG (27.0-34.0); MEAN CORPUSCULAR HGB CONC 34.2 % (32.0-36.0); MONO % 8.9 % (0.0-8.0); MONOCYTE # 0.5 TH/MM3 (0-0.9); NEUT % 55.7 % (16.0-70.0); PLATELET COUNT 122 TH/MM3 (150-450); RED BLOOD COUNT 3.21 MIL/MM3 (4.50-5.90); RED CELL DISTRIBUTION WIDTH 17.6 % (11.6-17.2); WHITE BLOOD COUNT 5.4 TH/MM3 (4.0-11.0)
[2018-04-10 06:11] LABS: ALBUMIN 1.9 GM/DL (3.4-5.0); BICARBONATE 20.1 MEQ/L (21.0-32.0); CALCIUM 8.5 MG/DL (8.5-10.1); CREATININE 1.65 MG/DL (0.60-1.30); MAGNESIUM 1.5 MG/DL (1.5-2.5); PHOSPHORUS 2.6 MG/DL (2.5-4.9)
[2018-04-10] MEDS: INSULIN ASPART SUPPLEMENTAL SCALE SQ SCH ×4 (08:00→21:00)
[2018-04-10] MEDS ORDERED: FUROSEMIDE 40 MG/4 ML VIAL IV PUSH ONE (08:15)
[2018-04-10] MEDS ORDERED: methylPREDNISolone SOD SUCC 125 MG/2 ML VIAL IV PUSH ONE (08:15)
[2018-04-10] MEDS: DOCUSATE SODIUM 100 MG CAP PO SCH ×2 (09:00→21:00)
[2018-04-10] MEDS: BUDESONIDE-FORMOTEROL 160/4.5 MCG INHALER INH SCH ×2 (09:20→21:00)
[2018-04-10] MEDS: AMPICILLIN-SULBACTAM INJ 1,500 MG in SODIUM CHLORIDE 0.9% INJ 100 ML IV SCH ×2 (09:20→21:26)
[2018-04-10] MEDS: ASPIRIN EC 81 MG TABEC PO SCH (09:22)
[2018-04-10] MEDS: FERROUS SULFATE 325 MG (65 MG ELEMENTAL IRON) TAB PO SCH (09:23)
[2018-04-10] MEDS: amLODIPine BESYLATE 5 MG TAB PO SCH (09:23)
[2018-04-10] MEDS: MEGESTROL ACETATE 40 MG TAB PO SCH ×2 (09:23→21:26)
[2018-04-10] MEDS: METOPROLOL TARTRATE 25 MG TAB PO SCH ×2 (09:23→21:26)
[2018-04-10] MEDS: CHOLECALCIFEROL (VIT D3) 1000 UNIT TAB PO SCH (09:23)
[2018-04-10] MEDS: CLOPIDOGREL 75 MG TAB PO SCH (09:23)
[2018-04-10] MEDS: PANTOPRAZOLE SOD 20 MG DELAYED RELEASE TAB PO SCH (09:23)
[2018-04-10] MEDS: SODIUM CHLORIDE 0.9% FLUSH 10 ML FLUSH IV FLUSH SCH ×2 (09:24→21:26)
[2018-04-10] MEDS: HEPARIN SODIUM - SQ 10,000 UNITS/ML VIAL SQ SCH ×2 (10:43→21:27)
[2018-04-10] MEDS: DRONABINOL 2.5 MG CAP PO SCH ×2 (10:43→16:55)
--- NOTE | 2018-04-10 12:44 | HHI.GIFU ---
Subjective Remarks Pt in bedside chair at bedside Discussed EGD findings Pt was unable to tolerate the prep for colonoscopy Nurses attempted to place NG tube but pt was unable to tolerate Pt not wishing to try and repeat colonoscopy, will follow up outpatient Nutrition recommended PEG tube, pt wanting to continue trying oral nutrition, also on Plavix which cardiology has not cleared to be stopped so PEG tube can't be placed at this time (Lissett De Leon) Objective Vitals I&O Vital Signs Date Time Temp Pulse Resp B/P (MAP) Pulse Ox O2 Delivery O2 Flow Rate FiO2 04/10/18 12:00 62 04/10/18 11:00 67 04/10/18 11:00 97.9 67 19 149/64 (92) 100 04/10/18 10:00 83 04/10/18 09:00 90 04/10/18 08:00 116 04/10/18 07:00 98.1 84 20 151/68 (95) 100 04/10/18 07:00 58 04/10/18 06:00 62 04/10/18 05:00 69 04/10/18 04:00 59 04/10/18 04:00 97.7 72 16 157/70 (99) 98 04/10/18 03:00 59 04/10/18 02:00 62 04/10/18 01:00 62 04/10/18 00:00 71 04/09/18 23:00 55 04/09/18 22:00 59 04/09/18 21:00 69 04/09/18 20:00 97.8 75 16 159/69 (99) 99 04/09/18 20:00 70 04/09/18 19:00 61 04/09/18 18:00 75 04/09/18 17:00 87 04/09/18 16:00 63 04/09/18 15:00 98.4 61 20 156/66 (96) 100 04/09/18 15:00 58 04/09/18 14:03 61 04/09/18 14:03 98.4 61 19 156/66 (96) 100 04/09/18 13:45 72 22 138/75 (96) 100 04/09/18 13:29 97.6 67 20 128/78 (95) 97 04/09/18 12:45 57 23 167/73 (104) 98 I/O 04/09/18 04/09/18 04/09/18 04/10/18 04/10/18 04/10/18 07:00 15:00 23:00 07:00 15:00 23:00 Intake Total 420 ml 200 ml 240 ml 240 ml 100 ml Output Total 275 ml 325 ml Balance 145 ml 200 ml 240 ml -85 ml 100 ml Intake Oral 420 ml 240 ml 240 ml IV Total 100 ml 100 ml Other 100 ml Output Urine Total 275 ml 325 ml # Voids 1 3 # Bowel Movements 3 1 0 Laboratory Laboratory Tests Test 04/09/18 19:31 04/10/18 05:03 White Blood Count 5.3 5.4 Red Blood Count 3.37 3.21 Hemoglobin 9.6 9.6 Hematocrit 29.3 28.0 Mean Corpuscular Volume 87.0 87.3 Mean Corpuscular Hemoglobin 28.7 29.8 Mean Corpuscular Hemoglobin Concent 33.0 34.2 Red Cell Distribution Width 17.8 17.6 Platelet Count 128 122 Mean Platelet Volume 9.6 10.0 Neutrophils (%) (Auto) 58.9 55.7 Lymphocytes (%) (Auto) 21.5 24.0 Monocytes (%) (Auto) 8.4 8.9 Eosinophils (%) (Auto) 10.4 10.8 Basophils (%) (Auto) 0.8 0.6 Neutrophils # (Auto) 3.1 3.0 Lymphocytes # (Auto) 1.1 1.3 Monocytes # (Auto) 0.4 0.5 Eosinophils # (Auto) 0.6 0.6 Basophils # (Auto) 0.0 0.0 CBC Comment DIFF FINAL DIFF FINAL Differential Comment Hematology Comments Blood Urea Nitrogen 19 18 Creatinine 1.75 1.65 Random Glucose 120 92 Albumin 2.0 1.9 Calcium Level 8.6 8.5 Phosphorus Level 2.3 2.6 Magnesium Level 1.5 1.5 Sodium Level 143 144 Potassium Level 4.1 3.8 Chloride Level 113 113 Carbon Dioxide Level 20.5 20.1 Anion Gap 10 11 Estimat Glomerular Filtration Rate 38 41 Date/Time Source Procedure Growth Status 04/04/18 19:30 Urine Catheterized Urine Urine Culture - Final Enterococcus Faecalis Complete Imaging Last Impressions Renal Ultrasound 03/31/18 1247 Signed Impressions: CONCLUSION: 1. Unremarkable bilateral renal ultrasound. Physical Exam HEENT: Normocephalic; atraumatic CHEST: Even/unlabored CARDIAC: RRR ABDOMEN: Soft, nondistended, nontender; bowel sounds active SKIN: Normal; no rash; no jaundice. RESIDENTIAL FIELD MANAGER: Alert and oriented times three. (Lissett De Leon) Assessment and Plan Plan Assessment: - Anemia, normocytic Pt denies history of anemia, taking iron supplements in the past, previous blood transfusions Last EGD approximately 10 years ago, thinks possible esophageal stricture, dilated with improvement in dysphagia. Last colonoscopy a few years ago and thinks normal exam. - Dysphagia- Began after recent stroke, states remote history of dysphagia which resolved after dilatation approximately 10 years ago - TAVR on 03/11/18 and post op L MCA stroke- on Plavix and ASA Discussed with Dr. Alberto he states pt is cleared for EGD and colonoscopy, unable to stop Plavix at this time (04/10) S/P EGD yesterday. Pt was unable to tolerate the prep for the colonoscopy. According to the nurses tried placing a NG tube for prep but pt did not tolerate this. Discussed EGD findings as below. H/H stable over night. No obvious bleeding. Pt would like to follow up outpatient regarding colonoscopy. Nutrition recommended PEG tube due to inadequate PO intake, pt would like to try to improve his eating. Also discussed with him unable to placed PEG via EGD at this time because he is on Plavix which cardiology has not cleared him to discontinue for procedures. Plan: Colonoscopy outpatient Unable to place PEG due to Plavix- will need cardiology to [place] DC of Plavix and as previously stated this is not possible at this time Add nutritional supplements like Ensure Protonix GI will sign off, please reconsult as needed Have pt follow up with GI after DC Pt has been seen and examined by myself and Dr. Slaughter and this note is written on his behalf (Lissett De Leon) Physician Comments As above, please notify us if needed. (Roe Slaughter MD) Lissett De Leon Apr 10, 2018 12:44 Roe Slaughter MD Apr 10, 2018 14:38
[2018-04-10] MEDS: SODIUM CHLOR 0.45% 1000 ML INJ 1,000 ML IV SCH (16:55)
--- NOTE | 2018-04-10 17:12 | HHI.NPPN ---
Subjective History of Present Illness 77-year-old with CVA right hemiparesis history of TAVR Objective Data Data 04/10/18 04/11/18 19:00 07:00 Intake Total 100 ml Balance 100 ml IV Total 100 ml Vital Signs Date Time Temp Pulse Resp B/P (MAP) Pulse Ox O2 Delivery O2 Flow Rate FiO2 04/10/18 16:00 70 04/10/18 15:00 97.4 75 20 138/60 (86) 99 04/10/18 15:00 71 04/10/18 14:00 70 04/10/18 13:00 83 04/10/18 12:00 62 04/10/18 11:00 67 04/10/18 11:00 97.9 67 19 149/64 (92) 100 04/10/18 10:00 83 04/10/18 09:00 90 04/10/18 08:00 116 04/10/18 07:00 98.1 84 20 151/68 (95) 100 04/10/18 07:00 58 04/10/18 06:00 62 04/10/18 05:00 69 04/10/18 04:00 59 04/10/18 04:00 97.7 72 16 157/70 (99) 98 04/10/18 03:00 59 04/10/18 02:00 62 04/10/18 01:00 62 04/10/18 00:00 71 04/09/18 23:00 55 04/09/18 22:00 59 04/09/18 21:00 69 04/09/18 20:00 97.8 75 16 159/69 (99) 99 04/09/18 20:00 70 04/09/18 19:00 61 04/09/18 18:00 75 -: 04/10/18 0503 04/10/18 0503 Physical Exam General Appearance: Well Developed, Well Nourished Pulmonary Resp Exam: Clear Bilaterally Cardiology CV Exam: Regular, Normal Sinus Rhythm Gastrointestinal/Abdomen GI Exam: Soft, Non-Tender, Bowel Sounds Present Extremeties Extremities Exam: No Edema Neurologic Neuro Exam: Alert, Awake Assessment/Plan Problem List: (1) Acute renal failure ICD Codes: N17.9 - Acute kidney failure, unspecified Plan: Patient has creatinine declined to 1.65 trying to eat still c/o weakness Avoid nephrotoxins UTI grp D Enterococcus on Ampicillin Unasyn 1.5 gm bid History of recent CVA History of TAVR (2) Dehydration ICD Codes: E86.0 - Dehydration Status: Resolved (3) S/P TAVR (transcatheter aortic valve replacement) ICD Codes: Z95.2 - Presence of prosthetic heart valve Plan: Recent placement earlier this month (4) CVA (cerebral vascular accident) ICD Codes: I63.9 - Cerebral infarction, unspecified Plan: Continue to monitor May need feeding tube placement Problem Qualifiers (1) CVA (cerebral vascular accident): Chaparro Joyce MD Apr 10, 2018 17:12
--- NOTE | 2018-04-10 17:39 | HHI.PR ---
Subjective Remarks When admit patient for the first time this morning he was sitting in his recliner dyspneic, having trouble speaking in full sentences. His nurse reported that his pulse ox was at 100% that he was tachycardic to 140s prior and 118 on exam. Objective Vitals Vital Signs Date Time Temp Pulse Resp B/P (MAP) Pulse Ox O2 Delivery O2 Flow Rate FiO2 04/10/18 17:00 96 04/10/18 16:00 70 04/10/18 15:00 97.4 75 20 138/60 (86) 99 04/10/18 15:00 71 04/10/18 14:00 70 04/10/18 13:00 83 04/10/18 12:00 62 04/10/18 11:00 67 04/10/18 11:00 97.9 67 19 149/64 (92) 100 04/10/18 10:00 83 04/10/18 09:00 90 04/10/18 08:00 116 04/10/18 07:00 98.1 84 20 151/68 (95) 100 04/10/18 07:00 58 04/10/18 06:00 62 04/10/18 05:00 69 04/10/18 04:00 59 04/10/18 04:00 97.7 72 16 157/70 (99) 98 04/10/18 03:00 59 04/10/18 02:00 62 04/10/18 01:00 62 04/10/18 00:00 71 04/09/18 23:00 55 04/09/18 22:00 59 04/09/18 21:00 69 04/09/18 20:00 97.8 75 16 159/69 (99) 99 04/09/18 20:00 70 04/09/18 19:00 61 04/09/18 18:00 75 I/O 04/09/18 04/09/18 04/09/18 04/10/18 04/10/18 04/10/18 06:59 14:59 22:59 06:59 14:59 22:59 Intake Total 420 ml 200 ml 240 ml 240 ml 100 ml 500 ml Output Total 275 ml 325 ml 1110 ml Balance 145 ml 200 ml 240 ml -85 ml 100 ml -610 ml Intake Oral 420 ml 240 ml 240 ml 500 ml IV Total 100 ml 100 ml Other 100 ml Output Urine Total 275 ml 325 ml 1110 ml # Voids 1 3 # Bowel Movements 3 1 0 0 Result Diagram: 04/10/18 0503 04/10/18 0503 Objective Remarks GENERAL: Well-nourished, well-developed patient. SKIN: Warm and dry. HEAD: Normocephalic. EYES: No scleral icterus. No injection or drainage. NECK: Supple, trachea midline. No JVD or lymphadenopathy. CARDIOVASCULAR: Regular rate and rhythm without murmurs, gallops, or rubs. RESPIRATORY: Rales and crackles in bilateral lungs with focus in bases. No accessory muscle use. GASTROINTESTINAL: Abdomen soft, non-tender, nondistended. EXTREMITIES: No cyanosis, or 1+ edema to mid shins NEUROLOGICAL: Awake, alert, and oriented x 3. Expressive aphasia A/P Problem List: (1) Acute on chronic kidney failure ICD Code: N17.9 - Acute kidney failure, unspecified; N18.9 - Chronic kidney disease, unspecified (2) Dehydration ICD Code: E86.0 - Dehydration Status: Resolved (3) CVA (cerebral vascular accident) ICD Code: I63.9 - Cerebral infarction, unspecified (4) CAD (coronary artery disease) ICD Code: I25.10 - Atherosclerotic heart disease of [place] coronary artery without angina pectoris (5) Aortic stenosis ICD Code: I35.0 - Nonrheumatic aortic (valve) stenosis (6) COPD (chronic obstructive pulmonary disease) ICD Code: J44.9 - Chronic obstructive pulmonary disease, unspecified (7) Diastolic CHF ICD Code: I50.30 - Unspecified diastolic (congestive) heart failure Assessment and Plan 77-year-old with right MCA CVA on 03-27 following TAVR, readmitted for prerenal DOREEN and dehydration 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 Rodríguez Acute onset of dyspnea Patient responded favorably to combination of Lasix and Solu-Medrol s/p TAVR on 03/11 with common iliac access Lasix was held along with lisinopril Today patient's lungs sound wet and his ankles are edematous Single dose of Lasix given, may repeat if dyspnea returns h/o COPD Patient was covered with single dose of Solu-Medrol this morning, dyspnea improved Continue supportive meds such as oxygen and nebulizers, repeat Solu-Medrol dosing if needed Poor PO intake, acute renal insufficiency Speech therapy following, elke mas completed Dietary conducting calorie count reports that p.o. intake has improved Continue pured diet with nectar thickened liquids. Patient refused offer of PEG tube, adamantly refused Marinol added to encourage p.o. intake Appreciate nephrology consult //Anemia. Hemoglobin previously at 7.9 Patient received 1 unit packed red blood cells, blood appears stable at 9.6 Continue to follow hemoglobin trend with CBC in the a.m. Enterococcus UTI Started on Augmentin by nephrology. Appreciate assistance. h/o hypertension Home meds held due to low pressures related to dehydration Type II diabetes Sliding-scale insulin coverage with Accu-Cheks Diabetic diet Discharge Planning Patient would benefit from inpatient rehab admission. OT, PT following. PT previously recommended home health, but patient did not do well at home on last discharge Problem Qualifiers (1) Acute on chronic kidney failure: (2) CVA (cerebral vascular accident): Chalo Nagy MD Apr 10, 2018 17:39
--- NOTE | 2018-04-10 20:38 | RADRPT ---
EXAM DATE: 04/10/2018 8:35 PM EDT AGE/SEX: 77 years / Male INDICATIONS: Right arm swelling, cold and turning blue. CLINICAL DATA: This is the patient's initial encounter. Patient reports that signs and symptoms have been present for 2 days and indicates a pain score of 0/10. MEDICAL/SURGICAL HISTORY: Hypertension. Chronic obstructive pulmonary disease. Emphysema. We akness. Intermittent claudication. Hernia. Chronic kidney disease. Diabetes. Paresthesia. Prostate ca ncer. . COMPARISON: No prior [place] exams available for comparison. FINDINGS: There is spontaneous flow documented in the brachial, basilic, axillary, and subclavian veins. There is limited visualization of cephalic vein. The vessels are compressible and augmentation response is documented. No filling defects are seen. The flow is phasic with respiration. Direction of flow in the jugular vein is caudal. There is diffuse edema. CONCLUSION: 1. No evidence of deep venous thrombosis. 2. Diffuse edema with limited visualization and evaluation cephalic vein. Electronically signed by: Anjum Tovar MD 04/10/2018 8:37 PM EDT
--- NOTE | 2018-04-10 21:01 | ECHRPT ---
Indication: 30 DAY TAVR F/U CONCLUSIONS Normal left ventricular size. Wall thickness is normal. The left ventricular systolic function is normal with an estimated ejection fraction in the range of 55-60%. Mild mitral annular calcification. Status-post percutaneous aortic valve replacement. Trace aortic valve regurgitation. There is trace tricuspid valve regurgitation. A prominent epicardial fat pad is present. BP: 151 / 68 HR: 116 Rhythm: Sinus MEASUREMENTS (Male / Female) Normal Values Technical Quality: 2D ECHO LVOT Diameter 1.5 cm Aortic Root Diameter 2.1 cm DOPPLER AV Peak Velocity 105.0 cm/s AV Peak Gradient 4.4 mmHg AV Mean Gradient 2.0 mmHg AV Velocity Time Integral 19.9 cm LVOT Peak Velocity 72.9 cm/s LVOT Peak Gradient 2.1 mmHg LVOT Velocity Time Integral 15.5 cm AV Area Cont Eq vti 1.4 cm AV Area Cont Eq pk 1.2 cm Mitral E Point Velocity 67.6 cm/s Mitral A Point Velocity 81.9 cm/s Mitral E to A Ratio 0.8 LV E' Lateral Velocity 5.9 cm/s Mitral E to LV E' Lateral Ratio 11.4 LV E' Septal Velocity 4.2 cm/s Mitral E to LV E' Septal Ratio 16.2 FINDINGS LEFT VENTRICLE Normal left ventricular size. Wall thickness is normal. The left ventricular systolic function is normal with an estimated ejection fraction in the range of 55-60%. RIGHT VENTRICLE Normal right ventricular size and systolic function. LEFT ATRIUM The left atrial size is normal. RIGHT ATRIUM The right atrial size is normal. ATRIAL SEPTUM The interatrial septum not well visualized. AORTA The aortic root and proximal ascending aorta are not well visualized. MITRAL VALVE Mild mitral annular calcification. AORTIC VALVE Status-post percutaneous aortic valve replacement. Trace aortic valve regurgitation. TRICUSPID VALVE There is trace tricuspid valve regurgitation. PULMONARY VALVE The pulmonary valve is not well visualized. VESSELS The inferior vena cava is normal in size. PERICARDIUM A prominent epicardial fat pad is present. Ty Alberto MD, FACC (Electronically Signed) Final Date:10 April 2018 21:00
[2018-04-11] VITALS (25 sets, daily range): BP systolic 134–160; BP diastolic 61–73; PULSE 53–99; RESP 18; TEMP 97.7–98.2; O2SAT 98–99
[2018-04-11] MEDS: CHLORHEXIDINE GLUCONATE 2 % 1 PACK (2 CLOTHS) TOP SCH (04:00)
--- NOTE | 2018-04-11 04:58 | RADRPT ---
EXAM DATE: 04/11/2018 4:23 AM EDT AGE/SEX: 77 years / Male INDICATIONS: Shortness of breath, possible pulmonary disease. CLINICAL DATA: This is the patient's subsequent encounter. Patient reports that signs and symptoms h ave been present for 4 - 6 days and indicates a pain score of 0/10. MEDICAL/SURGICAL HISTORY: Hypertension. Chronic obstructive pulmonary disease. Emphysema. Ch ronic kidney disease. Diabetes None. COMPARISON: [facility] – [place], CHEST SINGLE AP, 03/18/2018. . FINDINGS: The patient is status post sternotomy. The heart size is normal. There is minimal increased density a t the left lateral base. Right lung is clear. CONCLUSION: Minimal suspected atelectasis or consolidation at the lateral left lung base. Electronically signed by: Félix Mayo MD 04/11/2018 4:57 AM EDT
[2018-04-11] MEDS: INSULIN ASPART SUPPLEMENTAL SCALE SQ SCH ×4 (08:00→21:00)
[2018-04-11] MEDS: BUDESONIDE-FORMOTEROL 160/4.5 MCG INHALER INH SCH ×2 (09:00→22:17)
[2018-04-11] MEDS: METOPROLOL TARTRATE 25 MG TAB PO SCH ×2 (09:22→22:19)
[2018-04-11] MEDS: CHOLECALCIFEROL (VIT D3) 1000 UNIT TAB PO SCH (09:22)
[2018-04-11] MEDS: MEGESTROL ACETATE 40 MG TAB PO SCH ×2 (09:22→22:19)
[2018-04-11] MEDS: HEPARIN SODIUM - SQ 10,000 UNITS/ML VIAL SQ SCH ×2 (09:22→22:19)
[2018-04-11] MEDS: FERROUS SULFATE 325 MG (65 MG ELEMENTAL IRON) TAB PO SCH (09:22)
[2018-04-11] MEDS: amLODIPine BESYLATE 5 MG TAB PO SCH (09:22)
[2018-04-11] MEDS: DOCUSATE SODIUM 100 MG CAP PO SCH ×2 (09:22→21:00)
[2018-04-11] MEDS: PANTOPRAZOLE SOD 20 MG DELAYED RELEASE TAB PO SCH (09:22)
[2018-04-11] MEDS: ASPIRIN EC 81 MG TABEC PO SCH (09:23)
[2018-04-11] MEDS: CLOPIDOGREL 75 MG TAB PO SCH (09:23)
[2018-04-11] MEDS: SODIUM CHLORIDE 0.9% FLUSH 10 ML FLUSH IV FLUSH SCH ×2 (09:23→22:18)
[2018-04-11] MEDS: AMPICILLIN-SULBACTAM INJ 1,500 MG in SODIUM CHLORIDE 0.9% INJ 100 ML IV SCH ×2 (09:24→22:17)
[2018-04-11] MEDS: DRONABINOL 2.5 MG CAP PO SCH ×2 (12:13→17:10)
--- NOTE | 2018-04-11 15:21 | HHI.PR ---
Subjective Remarks Patient has no complaints of abnormal shortness of breath today. He responded well to yesterday's dose of Lasix plus Solu-Medrol to cover for slight fluid overload as well as COPD changes. Objective Vitals Vital Signs Date Time Temp Pulse Resp B/P (MAP) Pulse Ox O2 Delivery O2 Flow Rate FiO2 04/11/18 12:08 97.9 61 18 145/63 (90) 98 04/11/18 12:08 61 04/11/18 08:15 57 04/11/18 08:15 98.0 57 18 134/61 (85) 99 04/11/18 06:22 57 04/11/18 05:27 58 04/11/18 04:32 54 04/11/18 03:48 67 04/11/18 02:38 53 04/11/18 01:06 72 04/11/18 00:07 71 04/10/18 23:40 58 04/10/18 23:40 98.0 65 20 139/57 (84) 100 04/10/18 22:37 76 04/10/18 21:00 73 04/10/18 20:00 72 04/10/18 19:30 97.9 78 19 161/70 (100) 96 04/10/18 19:30 89 04/10/18 18:00 93 04/10/18 17:00 96 04/10/18 16:00 70 I/O 04/10/18 04/10/18 04/10/18 04/11/18 04/11/18 04/11/18 07:00 15:00 23:00 07:00 15:00 23:00 Intake Total 240 ml 100 ml 500 ml 240 ml Output Total 325 ml 1110 ml 200 ml Balance -85 ml 100 ml -610 ml 40 ml Intake Oral 240 ml 500 ml 240 ml IV Total 100 ml Output Urine Total 325 ml 1110 ml 200 ml # Bowel Movements 0 0 0 Result Diagram: 04/10/18 0503 04/10/18 0503 Objective Remarks GENERAL: Well-nourished, well-developed patient. SKIN: Warm and dry. HEAD: Normocephalic. EYES: No scleral icterus. No injection or drainage. NECK: Supple, trachea midline. No JVD or lymphadenopathy. CARDIOVASCULAR: Regular rate and rhythm without murmurs, gallops, or rubs. RESPIRATORY: Rales and crackles in bilateral lungs with focus in bases. No accessory muscle use. GASTROINTESTINAL: Abdomen soft, non-tender, nondistended. EXTREMITIES: No cyanosis, or 1+ edema limited to ankles NEUROLOGICAL: Awake, alert, and oriented x 3. Expressive aphasia A/P Problem List: (1) Acute on chronic kidney failure ICD Code: N17.9 - Acute kidney failure, unspecified; N18.9 - Chronic kidney disease, unspecified (2) Dehydration ICD Code: E86.0 - Dehydration Status: Resolved (3) CVA (cerebral vascular accident) ICD Code: I63.9 - Cerebral infarction, unspecified (4) CAD (coronary artery disease) ICD Code: I25.10 - Atherosclerotic heart disease of [place] coronary artery without angina pectoris (5) Aortic stenosis ICD Code: I35.0 - Nonrheumatic aortic (valve) stenosis (6) COPD (chronic obstructive pulmonary disease) ICD Code: J44.9 - Chronic obstructive pulmonary disease, unspecified (7) Diastolic CHF ICD Code: I50.30 - Unspecified diastolic (congestive) heart failure Assessment and Plan 77-year-old with right MCA CVA on 03-27 following TAVR, readmitted for prerenal DOREEN and dehydration 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 Rodríguez Acute onset of dyspnea Patient responded favorably to combination of Lasix and Solu-Medrol Patient is stable so no need to repeat dosing today s/p TAVR on 03/11 with common iliac access Lasix was held on admission along with lisinopril Patient's lungs are more clear, ankles show less edema, he is comfortable Single dose of Lasix given, may repeat if dyspnea returns h/o COPD Patient was covered with single dose of Solu-Medrol this morning, dyspnea improved Continue supportive meds such as oxygen and nebulizers, repeat Solu-Medrol dosing if needed Poor PO intake, acute renal insufficiency Speech therapy following, swallow eval completed Dietary conducting calorie count reports that p.o. intake has improved Continue pured diet with nectar thickened liquids. Patient refused offer of PEG tube, adamantly refused Marinol added to encourage p.o. intake Appreciate nephrology consult Anemia. Hemoglobin previously at 7.9 Patient received 1 unit packed red blood cells, blood appears stable at 9.6 Continue to follow hemoglobin trend Enterococcus UTI Started on Augmentin by nephrology. Appreciate assistance. h/o hypertension Home meds held due to low pressures related to dehydration Type II diabetes Sliding-scale insulin coverage with Accu-Cheks Diabetic diet Discharge Planning Patient would benefit from inpatient rehab admission. OT, PT following. PT previously recommended home health, but patient did not do well at home on last discharge Problem Qualifiers (1) Acute on chronic kidney failure: (2) CVA (cerebral vascular accident): Chalo Nagy MD Apr 11, 2018 15:21
[2018-04-12] VITALS (25 sets, daily range): BP systolic 122–157; BP diastolic 57–77; PULSE 60–78; RESP 18; TEMP 98.1–98.7; O2SAT 97–99
[2018-04-12] MEDS: CHLORHEXIDINE GLUCONATE 2 % 1 PACK (2 CLOTHS) TOP SCH (04:00)
[2018-04-12] MEDS: RESP: ALBUTEROL 2.5 MG/IPRATROPIUM 0.5 MG NEB (PRN) NEB (05:55)
[2018-04-12 06:00] LABS: AUTOMATED NEUTROPHIL # 6.3 TH/MM3 (1.8-7.7); BASOPHIL % 0.5 % (0.0-2.0); EOSINOPHIL # 0.2 TH/MM3 (0-0.4); EOSINOPHIL % 2.6 % (0.0-4.0); HEMATOCRIT 28.4 % (39.0-51.0); HEMOGLOBIN 9.6 GM/DL (13.0-17.0); LYMPHOCYTE # 1.7 TH/MM3 (1.0-4.8); MEAN CELL VOLUME 87.6 FL (80.0-100.0); MEAN CORPUSCULAR HEMOGLOBIN 29.5 PG (27.0-34.0); MEAN CORPUSCULAR HGB CONC 33.7 % (32.0-36.0); MEAN PLATELET VOLUME 9.5 FL (7.0-11.0); MONO % 6.4 % (0.0-8.0); MONOCYTE # 0.6 TH/MM3 (0-0.9); NEUT % 71.5 % (16.0-70.0); PLATELET COUNT 141 TH/MM3 (150-450); RED BLOOD COUNT 3.25 MIL/MM3 (4.50-5.90); RED CELL DISTRIBUTION WIDTH 17.5 % (11.6-17.2); WHITE BLOOD COUNT 8.9 TH/MM3 (4.0-11.0)
[2018-04-12 06:16] LABS: BICARBONATE 22.7 MEQ/L (21.0-32.0); CALCIUM 8.7 MG/DL (8.5-10.1); CREATININE 1.8 MG/DL (0.60-1.30)
[2018-04-12] MEDS: INSULIN ASPART SUPPLEMENTAL SCALE SQ SCH ×4 (08:00→22:17)
--- NOTE | 2018-04-12 08:36 | HHI.NPPN ---
Subjective History of Present Illness 77-year-old with CVA right hemiparesis history of TAVR Interval History Late entry: patient was seen on 04/11/18. He was sitting on a chair, when I examined him. He had expressive aphasia. Notes were reviewed. Given Lasix on 04/10/18. Renal function is stable. Chest: Clear Abdomen: soft. Trace edema. DOREEN Improved. CVA s/p TAVR Objective Data Data Vital Signs Date Time Temp Pulse Resp B/P (MAP) Pulse Ox O2 Delivery O2 Flow Rate FiO2 04/12/18 06:03 67 04/12/18 05:51 98.1 75 157/70 (99) 98 04/12/18 05:18 66 04/12/18 04:12 68 04/12/18 03:31 64 04/12/18 02:50 71 04/12/18 01:36 60 04/12/18 00:08 64 04/11/18 23:19 98.2 73 160/73 (102) 99 04/11/18 23:18 62 04/11/18 22:09 61 04/11/18 21:40 80 04/11/18 20:34 70 04/11/18 19:00 71 04/11/18 19:00 97.7 71 154/70 (98) 98 04/11/18 18:01 68 04/11/18 17:00 73 04/11/18 16:00 76 04/11/18 15:50 98.1 76 18 138/63 (88) 98 04/11/18 15:00 62 04/11/18 14:00 60 04/11/18 13:00 61 04/11/18 12:08 97.9 61 18 145/63 (90) 98 04/11/18 12:08 61 04/11/18 11:00 72 04/11/18 10:00 72 04/11/18 09:00 99 -: 04/12/18 0537 04/12/18 0537 Physical Exam General Appearance: Well Developed, Well Nourished Pulmonary Resp Exam: Clear Bilaterally Cardiology CV Exam: Regular, Normal Sinus Rhythm Gastrointestinal/Abdomen GI Exam: Soft, Non-Tender, Bowel Sounds Present Extremeties Extremities Exam: No Edema Neurologic Neuro Exam: Alert, Awake Everton Dueñas MD Apr 12, 2018 08:36
[2018-04-12] MEDS: AMPICILLIN-SULBACTAM INJ 1,500 MG in SODIUM CHLORIDE 0.9% INJ 100 ML IV SCH ×2 (09:00→21:31)
[2018-04-12] MEDS: ASPIRIN EC 81 MG TABEC PO SCH (09:00)
[2018-04-12] MEDS: CLOPIDOGREL 75 MG TAB PO SCH (09:00)
[2018-04-12] MEDS: MEGESTROL ACETATE 40 MG TAB PO SCH ×2 (09:00→21:31)
[2018-04-12] MEDS: SODIUM CHLORIDE 0.9% FLUSH 10 ML FLUSH IV FLUSH SCH ×2 (09:00→21:31)
[2018-04-12] MEDS: amLODIPine BESYLATE 5 MG TAB PO SCH (09:00)
[2018-04-12] MEDS: CHOLECALCIFEROL (VIT D3) 1000 UNIT TAB PO SCH (09:00)
[2018-04-12] MEDS: METOPROLOL TARTRATE 25 MG TAB PO SCH ×2 (09:00→21:31)
[2018-04-12] MEDS: DOCUSATE SODIUM 100 MG CAP PO SCH ×2 (09:00→21:00)
[2018-04-12] MEDS: FERROUS SULFATE 325 MG (65 MG ELEMENTAL IRON) TAB PO SCH (09:00)
[2018-04-12] MEDS: PANTOPRAZOLE SOD 20 MG DELAYED RELEASE TAB PO SCH (09:00)
[2018-04-12] MEDS: BUDESONIDE-FORMOTEROL 160/4.5 MCG INHALER INH SCH ×2 (09:00→21:30)
--- NOTE | 2018-04-12 09:37 | HHI.NPPN ---
Subjective History of Present Illness 77-year-old with CVA right hemiparesis history of TAVR Interval History Sitting on a chair. He is able to swallow. Review of Systems General Constitutional: Fatigue Objective Data Data Vital Signs Date Time Temp Pulse Resp B/P (MAP) Pulse Ox O2 Delivery O2 Flow Rate FiO2 04/12/18 06:03 67 04/12/18 05:51 98.1 75 157/70 (99) 98 04/12/18 05:18 66 04/12/18 04:12 68 04/12/18 03:31 64 04/12/18 02:50 71 04/12/18 01:36 60 04/12/18 00:08 64 04/11/18 23:19 98.2 73 160/73 (102) 99 04/11/18 23:18 62 04/11/18 22:09 61 04/11/18 21:40 80 04/11/18 20:34 70 04/11/18 19:00 71 04/11/18 19:00 97.7 71 154/70 (98) 98 04/11/18 18:01 68 04/11/18 17:00 73 04/11/18 16:00 76 04/11/18 15:50 98.1 76 18 138/63 (88) 98 04/11/18 15:00 62 04/11/18 14:00 60 04/11/18 13:00 61 04/11/18 12:08 97.9 61 18 145/63 (90) 98 04/11/18 12:08 61 04/11/18 11:00 72 04/11/18 10:00 72 -: 04/12/18 0537 04/12/18 0537 Physical Exam General Appearance: Well Developed, Well Nourished Pulmonary Resp Exam: Clear Bilaterally Cardiology CV Exam: Regular, Normal Sinus Rhythm Gastrointestinal/Abdomen GI Exam: Soft, Non-Tender, Bowel Sounds Present Extremeties Extremities Exam: No Edema, Pitting Edema, Dependent Edema Neurologic Neuro Exam: Alert, Awake Assessment/Plan Problem List: (1) Acute renal failure ICD Codes: N17.9 - Acute kidney failure, unspecified Plan: Renal function is stable. Monitor urine output. IVF stopped, has developed some degree of edema. Supportive care. Avoid nephrotoxic agents. (2) Dehydration ICD Codes: E86.0 - Dehydration Status: Resolved Plan: Resolved. (3) S/P TAVR (transcatheter aortic valve replacement) ICD Codes: Z95.2 - Presence of prosthetic heart valve (4) CVA (cerebral vascular accident) ICD Codes: I63.9 - Cerebral infarction, unspecified Plan: Continue physical therapy. Problem Qualifiers (1) CVA (cerebral vascular accident): Everton Dueñas MD Apr 12, 2018 09:37
--- NOTE | 2018-04-12 09:52 | HHI.PR ---
Subjective Remarks NO NEW COMPLAINTS LESS SOB DW RN AND PT AND FAMILY AWAIT THE [facility] APPROVAL FOR SNF AM LABS CONTINUE PT AND OT AND [facility] BY HUMAN Objective Vitals Vital Signs Date Time Temp Pulse Resp B/P (MAP) Pulse Ox O2 Delivery O2 Flow Rate FiO2 04/12/18 06:03 67 04/12/18 05:51 98.1 75 157/70 (99) 98 04/12/18 05:18 66 04/12/18 04:12 68 04/12/18 03:31 64 04/12/18 02:50 71 04/12/18 01:36 60 04/12/18 00:08 64 04/11/18 23:19 98.2 73 160/73 (102) 99 04/11/18 23:18 62 04/11/18 22:09 61 04/11/18 21:40 80 04/11/18 20:34 70 04/11/18 19:00 71 04/11/18 19:00 97.7 71 154/70 (98) 98 04/11/18 18:01 68 04/11/18 17:00 73 04/11/18 16:00 76 04/11/18 15:50 98.1 76 18 138/63 (88) 98 04/11/18 15:00 62 04/11/18 14:00 60 04/11/18 13:00 61 04/11/18 12:08 97.9 61 18 145/63 (90) 98 04/11/18 12:08 61 04/11/18 11:00 72 04/11/18 10:00 72 I/O 04/11/18 04/11/18 04/11/18 04/12/18 04/12/18 04/12/18 07:00 15:00 23:00 07:00 15:00 23:00 Intake Total 240 ml 940 ml 220 ml Output Total 200 ml 400 ml 250 ml Balance 40 ml 540 ml -30 ml Intake Oral 240 ml 840 ml 120 ml IV Total 100 ml 100 ml Output Urine Total 200 ml 400 ml 250 ml # Bowel Movements 0 1 Result Diagram: 04/12/18 0537 04/12/18 0537 Other Results Laboratory Tests Test 04/09/18 19:31 04/10/18 05:03 04/12/18 05:37 White Blood Count 5.3 TH/MM3 5.4 TH/MM3 8.9 TH/MM3 Red Blood Count 3.37 MIL/MM3 3.21 MIL/MM3 3.25 MIL/MM3 Hemoglobin 9.6 GM/DL 9.6 GM/DL 9.6 GM/DL Hematocrit 29.3 % 28.0 % 28.4 % Mean Corpuscular Volume 87.0 FL 87.3 FL 87.6 FL Mean Corpuscular Hemoglobin 28.7 PG 29.8 PG 29.5 PG Mean Corpuscular Hemoglobin Concent 33.0 % 34.2 % 33.7 % Red Cell Distribution Width 17.8 % 17.6 % 17.5 % Platelet Count 128 TH/MM3 122 TH/MM3 141 TH/MM3 Mean Platelet Volume 9.6 FL 10.0 FL 9.5 FL Neutrophils (%) (Auto) 58.9 % 55.7 % 71.5 % Lymphocytes (%) (Auto) 21.5 % 24.0 % 19.0 % Monocytes (%) (Auto) 8.4 % 8.9 % 6.4 % Eosinophils (%) (Auto) 10.4 % 10.8 % 2.6 % Basophils (%) (Auto) 0.8 % 0.6 % 0.5 % Neutrophils # (Auto) 3.1 TH/MM3 3.0 TH/MM3 6.3 TH/MM3 Lymphocytes # (Auto) 1.1 TH/MM3 1.3 TH/MM3 1.7 TH/MM3 Monocytes # (Auto) 0.4 TH/MM3 0.5 TH/MM3 0.6 TH/MM3 Eosinophils # (Auto) 0.6 TH/MM3 0.6 TH/MM3 0.2 TH/MM3 Basophils # (Auto) 0.0 TH/MM3 0.0 TH/MM3 0.0 TH/MM3 CBC Comment DIFF FINAL DIFF FINAL DIFF FINAL Differential Comment Hematology Comments Blood Urea Nitrogen 19 MG/DL 18 MG/DL 25 MG/DL Creatinine 1.75 MG/DL 1.65 MG/DL 1.80 MG/DL Random Glucose 120 MG/DL 92 MG/DL 119 MG/DL Albumin 2.0 GM/DL 1.9 GM/DL Calcium Level 8.6 MG/DL 8.5 MG/DL 8.7 MG/DL Phosphorus Level 2.3 MG/DL 2.6 MG/DL Magnesium Level 1.5 MG/DL 1.5 MG/DL Sodium Level 143 MEQ/L 144 MEQ/L 148 MEQ/L Potassium Level 4.1 MEQ/L 3.8 MEQ/L 3.8 MEQ/L Chloride Level 113 MEQ/L 113 MEQ/L 115 MEQ/L Carbon Dioxide Level 20.5 MEQ/L 20.1 MEQ/L 22.7 MEQ/L Anion Gap 10 MEQ/L 11 MEQ/L 10 MEQ/L Estimat Glomerular Filtration Rate 38 ML/MIN 41 ML/MIN 37 ML/MIN Imaging Last Impressions Chest X-Ray 04/11/18 0600 Signed Impressions: CONCLUSION: Minimal suspected atelectasis or consolidation at the lateral left lung base. Upper Extremity Ultrasound 04/10/18 0000 Signed Impressions: CONCLUSION: 1. No evidence of deep venous thrombosis. 2. Diffuse edema with limited visualization and evaluation cephalic vein. Renal Ultrasound 03/31/18 1247 Signed Impressions: CONCLUSION: 1. Unremarkable bilateral renal ultrasound. Objective Remarks GENERAL: Awake and alert talkative and somewhat cooperative has right sided facial weakness and numbness SKIN: Warm and dry. HEAD: Atraumatic. Normocephalic. EYES: Pupils equal and round. No scleral icterus. No injection or drainage. Extraocular muscles intact ENT: No nasal bleeding or discharge. Mucous membranes pink and moist. NECK: Trachea midline. No JVD. Supple CARDIOVASCULAR: IRRegular rate and rhythm. S1-S2 no S3 or S4 RESPIRATORY: No accessory muscle use. Clear to auscultation. Breath sounds equal bilaterally. GASTROINTESTINAL: Abdomen soft, non-tender, nondistended. Hepatic and splenic margins not palpable. MUSCULOSKELETAL: Extremities without clubbing, cyanosis, or edema. No obvious deformities. NEUROLOGICAL: Awake and alert. No obvious cranial nerve deficits. Motor grossly within normal limits. 4 out of 5 muscle strength in the arms and legs. ABNormal speech. PSYCHIATRIC: Appropriate mood and affect; insight and judgment normal. Procedures 5- INDICATIONS: The patient is a 77 yr old male here for an EGD due to iron deficiency anemia PROCEDURE PERFORMED: EGD w/ biopsy MEDICATIONS: Per Anesthesia and None. TOPICAL ANESTHETIC: CONSENT: The patient understands the risks and benefits of the procedure and understands that these risks include, but are not limited to: sedation, allergic reaction, infection, perforation and/or bleeding. Alternative means of evaluation and treatment include, among others: physical exam, x-rays, and/or surgical intervention. The patient elects to proceed with this endoscopic procedure. medical equipment was checked for proper function. Hand hygiene and appropriate measures for infection prevention was taken. After the risks, benefits and alternatives of the procedure were thoroughly explained, Informed consent was verified, confirmed and timeout was successfully executed by the treatment team. The patient was anesthetized with topical anesthesia and the [facility] [id number] endoscope was introduced through the mouth and advanced to the second portion of the duodenum. Retroflexed views revealed a hiatal hernia The gastroscope was then slowly withdrawn and removed. 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 The stricture was easily traversable. STOMACH: There was erythematous moderate gastritis in the gastric antrum. A biopsy was performed using cold forceps. Sample sent for histology. DUODENUM: Moderate duodenal inflammation was found in the bulb and second portion of the duodenum. ADVERSE EVENTS: There were no complications. IMPRESSIONS: 1. There was a short stricture in the distal esophagus 2. There was erythematous gastritis in the gastric antrum; biopsy was performed 3. Duodenal inflammation was found in the bulb and second portion of the duodenum 4. Retroflexed views revealed a hiatal hernia RECOMMENDATIONS: 1. Await biopsy results. Biopsy results will not be ready for 7-10 days. If you don't hear from us in two weeks, call our office for biopsy results. 2. Anti-reflux regimen 3. Continue PPI 4. Avoid NSAIDS 5. Colonoscopy PATIENT CONDITION: stable DISPOSITION: Inpatient REPEAT EXAM: Return 3 months EGD pending biopsy results Medications and IVs Current Medications Sodium Chloride 1,000 ml @ 125 mls/hr Q8H IV Last administered on 04/01/18at 05 :46; Start 03/31/18 at 10:33; Stop 04/01/18 at 06:42; Status DC Sodium Chloride (NS Flush) 2 ml UNSCH PRN IV FLUSH FLUSH AFTER USING IV ACCESS ; Start 03/31/18 at 10:45 Sodium Chloride (NS Flush) 2 ml BID IV FLUSH Last administered on 04/11/18at 22: 18; Start 03/31/18 at 21:00 Acetaminophen (Tylenol) 650 mg Q6H PRN PO PAIN 1-10 AND/OR FEVER >101F; Start 03/31/18 at 10:45 Famotidine (Pepcid) 20 mg Q12HR PO ; Start 03/31/18 at 21:00; Stop 04/01/18 at 09:21; Status DC Albuterol/ Ipratropium (Duoneb Neb) 1 ampule Q2HR NEB PRN NEB WHEEZING Last administered on 04/12/18 05:55; Start 03/31/18 at 10:45 Heparin Sodium (Porcine) (Heparin Inj) 5,000 units Q12H SQ Last administered on 04/11/18 22:19; Start 03/31/18 at 11:00 Miscellaneous Information ([facility] [place] [facility]) 1 [id number] Last administered on 03/31/18at 10:45; Start 03/31/18 at 10:45 Chlorhexidine Gluconate (Chlorhexidine 2% Cloth) Taper DAILY@04 TOP ; Start at 04:00; Stop 03/28/19 at 03:59 Chlorhexidine Gluconate (Chlorhexidine 2% Cloth) 3 pack UNSCH PRN TOP HYGIENIC CARE; Start 03/31/18 at 10:45 Aspirin (Ecotrin Ec) 81 mg DAILY PO Last administered on 04/11/18 09:23; Start 04/01/18 at 09:00 Budesonide/ Formoterol Fumarate (Symbicort 160-4.5 Mcg Inh) 2 puff Q12HR INH Last administered on 04/11/18 22:17; Start 03/31/18 at 21:00 Cholecalciferol (Vitamin D3) 2,000 units DAILY PO Last administered on 09:22; Start 04/01/18 at 09:00 Clopidogrel Bisulfate (Plavix) 75 mg DAILY PO Last administered on 04/11/18 09: 23; Start 04/01/18 at 09:00 Docusate Sodium (Colace) 100 mg BID PO Last administered on 04/11/18 09:22; Start 03/31/18 at 21:00 Metoprolol Tartrate (Lopressor) 12.5 mg BID PO ; Start 03/31/18 at 21:00; Stop 04/01/18 at 15:19; Status DC Oxycodone/ Acetaminophen (Percocet 5-325 Mg) 1 tab Q4H PRN PO PAIN SCALE 1 TO 5 Last administered on 04/06/18at 21:48; Start 03/31/18 at 10:45 Non-Formulary Medication 1 cap DAILY PO ; Start 04/01/18 at 09:00; Stop at 09:00; Status DC Insulin Aspart (NovoLOG SUPPLEMENTAL SCALE) 1 Q4HR SQ Last administered on 04/02at 20:50; Start 03/31/18 at 10:45; Stop 04/03/18 at 11:10; Status DC Dextrose (D50w (Vial) Inj) 50 ml UNSCH PRN IV PUSH HYPOGLYCEMIA - SEE COMMENTS ; Start 03/31/18 at 11:00 Glucagon (Glucagon Inj) 1 mg UNSCH PRN OTHER HYPOGLYCEMIA-SEE COMMENTS; Start 03/31/18 at 11:00 Miscellaneous (Pill Splitter) 1 ea UNSCH PRN OTHER SEE LABEL COMMENTS; Start at 11:00 Sodium Chloride 1,000 ml @ 999 mls/hr BOLUS ONCE IV Last administered on 03/31at 14:55; Start 03/31/18 at 14:45; Stop 03/31/18 at 15:45; Status DC Sodium Chloride 1,000 ml @ 999 mls/hr BOLUS ONCE IV Last administered on 03/31at 14:55; Start 03/31/18 at 14:15; Stop 03/31/18 at 15:15; Status DC Sodium Chloride 1,000 ml @ 45 mls/hr [id number] IV Last administered on at 08:27; Start 04/01/18 at 06:45 Famotidine (Pepcid) 10 mg Q12HR PO Last administered on 04/07/18at 21:09; Start 04/01/18 at 21:00; Stop 04/08/18 at 07:14; Status DC Metoprolol Tartrate (Lopressor) 25 mg Q12HR PO Last administered on 04/11/18at 22 :19; Start 04/01/18 at 21:00 Insulin Aspart (NovoLOG SUPPLEMENTAL SCALE) 1 ACHS SQ Last administered on at 17:08; Start 04/03/18 at 12:00 Potassium Chloride (KCl) 20 meq ONCE ONCE PO ; Start 04/03/18 at 16:00; Stop at 16:01; Status DC Potassium Bicarb/ Potassium Chloride (K-Lyte Cl Eff) 25 meq ONCE ONCE PO Last administered on 04/03/18 20:49; Start 04/03/18 at 19:00; Stop 04/03/18 at 19:01; Status DC Ferrous Sulfate (Ferrous Sulfate) 325 mg DAILY PO Last administered on 09:22; Start 04/04/18 at 13:30 Ceftriaxone Sodium 1000 mg/ Sodium Chloride 100 ml @ 200 mls/hr Q24H IV Last administered on 04/07/18at 05:04; Start 04/05/18 at 04:00; Stop 04/07/18 at 12:16 ; Status DC Ondansetron HCl (Zofran Odt) 4 mg Q6H PRN PO NAUSEA Last administered on at 17:48; Start 04/05/18 at 15:45 Megestrol Acetate (Megace) 40 mg Q12HR PO Last administered on 04/11/18 22:19; Start 04/05/18 at 21:00 Ampicillin Sodium/ Sulbactam Sodium 1500 mg/Sodium Chloride 100 ml @ 200 mls/ hr BID IV Last administered on 04/11/18 22:17; Start 04/07/18 at 13:00 Miscellaneous Information ([facility] [place] [facility]) ENTER PATIENT'S HT I... Q30M .XX ; Start 04/07/18 at 12:30; Stop 04/07/18 at 13:03; Status DC Pantoprazole Sodium (Protonix Inj) 40 mg ONCE ONCE IV PUSH Last administered on 04/08/18 08:33; Start 04/08/18 at 07:15; Stop 04/08/18 at 07:16; Status DC Pantoprazole Sodium (Protonix) 20 mg DAILY PO Last administered on 04/11/18 09: 22; Start 04/09/18 at 09:00 Sodium Chloride 250 ml @ 15 mls/hr ONCE ONCE IV Last administered on 16:31; Start 04/08/18 at 12:45; Stop 04/09/18 at 05:24; Status DC Polyethylene Glycol/ Electrolytes (Colyte Liq) 4,000 ml NOW ONCE PO Last administered on 04/08/18 16:31; Start 04/08/18 at 13:50; Stop 04/08/18 at 13:51 ; Status DC Amlodipine Besylate (Norvasc) 5 mg ONCE ONCE PO Last administered on at 14:13; Start 04/09/18 at 13:30; Stop 04/09/18 at 13:39; Status DC Amlodipine Besylate (Norvasc) 5 mg DAILY PO Last administered on 04/11/18at 09:22 ; Start 04/10/18 at 09:00 Miscellaneous Information ([facility] [place] [facility]) ALL NURSING DEPARTME... UNSCH PRN .XX SEE LABEL COMMENTS; Start 04/09/18 at 13:30; Stop 04/10/18 at 13: 29; Status DC Dronabinol (Marinol) 2.5 mg BID@11,16 PO Last administered on 04/11/18at 17:10; Start 04/10/18 at 11:00 Methylprednisolone Sodium Succinate (SoluMEDROL INJ) 125 mg ONCE ONCE IV PUSH Last administered on 04/10/18at 09:22; Start 04/10/18 at 08:15; Stop 04/10/18 at 08: 16; Status DC Furosemide (Lasix Inj) 40 mg ONCE ONCE IV PUSH Last administered on 04/10/18at 09:22; Start 04/10/18 at 08:15; Stop 04/10/18 at 08:16; Status DC A/P Problem List: (1) Acute on chronic kidney failure ICD Code: N17.9 - Acute kidney failure, unspecified; N18.9 - Chronic kidney disease, unspecified (2) Dehydration ICD Code: E86.0 - Dehydration Status: Resolved (3) CVA (cerebral vascular accident) ICD Code: I63.9 - Cerebral infarction, unspecified (4) CAD (coronary artery disease) ICD Code: I25.10 - Atherosclerotic heart disease of [place] coronary artery without angina pectoris (5) Aortic stenosis ICD Code: I35.0 - Nonrheumatic aortic (valve) stenosis (6) COPD (chronic obstructive pulmonary disease) ICD Code: J44.9 - Chronic obstructive pulmonary disease, unspecified (7) Diastolic CHF ICD Code: I50.30 - Unspecified diastolic (congestive) heart failure Assessment and Plan 77-year-old with right MCA CVA on 03-27 following TAVR, readmitted for prerenal DOREEN and dehydration 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 Rodríguez Acute onset of dyspnea Patient responded favorably to combination of Lasix and Solu-Medrol Patient is stable so no need to repeat dosing today s/p TAVR on 03/11 with common iliac access Lasix was held on admission along with lisinopril Patient's lungs are more clear, ankles show less edema, he is comfortable Single dose of Lasix given, may repeat if dyspnea returns h/o COPD Patient was covered with single dose of Solu-Medrol this morning, dyspnea improved Continue supportive meds such as oxygen and nebulizers, repeat Solu-Medrol dosing if needed Poor PO intake, acute renal insufficiency Speech therapy following, elke mas completed Dietary conducting calorie count reports that p.o. intake has improved Continue pured diet with nectar thickened liquids. Patient refused offer of PEG tube, adamantly refused Marinol added to encourage p.o. intake Appreciate nephrology consult Anemia. Hemoglobin previously at 7.9 Patient received 1 unit packed red blood cells, blood appears stable at 9.6 Continue to follow hemoglobin trend Enterococcus UTI Started on Augmentin by nephrology. Appreciate assistance. h/o hypertension Home meds held due to low pressures related to dehydration Type II diabetes Sliding-scale insulin coverage with Accu-Cheks Diabetic diet Discharge Planning Discharge Planning Patient would benefit from inpatient rehab admission. OT, PT following. PT previously recommended home health, but patient did not do well at home on last discharge Problem Qualifiers (1) Acute on chronic kidney failure: (2) CVA (cerebral vascular accident): Stanislaw Thompson DO Apr 12, 2018 09:52
[2018-04-12] MEDS: HEPARIN SODIUM - SQ 10,000 UNITS/ML VIAL SQ SCH ×2 (12:11→21:31)
[2018-04-12] MEDS: DRONABINOL 2.5 MG CAP PO SCH ×2 (12:12→17:16)
[2018-04-13] VITALS (21 sets, daily range): BP systolic 141–159; BP diastolic 63–81; PULSE 56–86; RESP 18; TEMP 97.4–98.6; O2SAT 97–98
[2018-04-13] MEDS: CHLORHEXIDINE GLUCONATE 2 % 1 PACK (2 CLOTHS) TOP SCH (04:00)
[2018-04-13 06:39] LABS: AUTOMATED NEUTROPHIL # 4.3 TH/MM3 (1.8-7.7); BASOPHIL % 0.5 % (0.0-2.0); EOSINOPHIL # 0.5 TH/MM3 (0-0.4); EOSINOPHIL % 6.8 % (0.0-4.0); HEMATOCRIT 28.4 % (39.0-51.0); HEMOGLOBIN 9.5 GM/DL (13.0-17.0); LYMPH % 23.3 % (9.0-44.0); LYMPHOCYTE # 1.6 TH/MM3 (1.0-4.8); MEAN CELL VOLUME 89.2 FL (80.0-100.0); MEAN CORPUSCULAR HEMOGLOBIN 29.7 PG (27.0-34.0); MEAN CORPUSCULAR HGB CONC 33.3 % (32.0-36.0); MEAN PLATELET VOLUME 9.9 FL (7.0-11.0); MONOCYTE # 0.5 TH/MM3 (0-0.9); NEUT % 62.4 % (16.0-70.0); PLATELET COUNT 126 TH/MM3 (150-450); RED BLOOD COUNT 3.19 MIL/MM3 (4.50-5.90); RED CELL DISTRIBUTION WIDTH 17.7 % (11.6-17.2); WHITE BLOOD COUNT 6.8 TH/MM3 (4.0-11.0)
[2018-04-13 07:01] LABS: ALBUMIN 2.2 GM/DL (3.4-5.0); AST (GOT) 23 U/L (15-37); BICARBONATE 23.4 MEQ/L (21.0-32.0); BLOOD UREA NITROGEN 23 MG/DL (7-18); CALCIUM 8.4 MG/DL (8.5-10.1); CHLORIDE 115 MEQ/L (98-107); CREATININE 1.65 MG/DL (0.60-1.30); GLOMERULAR FILTRATION RATE 41 ML/MIN (>89); GLUCOSE,RANDOM 104 MG/DL (74-106); MAGNESIUM 1.6 MG/DL (1.5-2.5); SODIUM (NA) 147 MEQ/L (136-145)
[2018-04-13 07:02] LABS: ALT (GPT) 42 U/L (12-78)
[2018-04-13 07:10] LABS: ALKALINE PHOSPHATASE 161 U/L (45-117); FREE T4 1.26 NG/DL (0.76-1.46); PHOSPHORUS 2.5 MG/DL (2.5-4.9); TOTAL BILIRUBIN ADULT 0.3 MG/DL (0.2-1.0); TOTAL PROTEIN 5.3 GM/DL (6.4-8.2)
[2018-04-13] MEDS: INSULIN ASPART SUPPLEMENTAL SCALE SQ SCH ×2 (07:37→11:00)
[2018-04-13] MEDS: RESP: ALBUTEROL 2.5 MG/IPRATROPIUM 0.5 MG NEB (PRN) NEB (07:52)
[2018-04-13] MEDS: AMPICILLIN-SULBACTAM INJ 1,500 MG in SODIUM CHLORIDE 0.9% INJ 100 ML IV SCH (08:16)
[2018-04-13] MEDS: BUDESONIDE-FORMOTEROL 160/4.5 MCG INHALER INH SCH (08:17)
[2018-04-13] MEDS: CLOPIDOGREL 75 MG TAB PO SCH (08:18)
[2018-04-13] MEDS: ASPIRIN EC 81 MG TABEC PO SCH (08:18)
[2018-04-13] MEDS: amLODIPine BESYLATE 5 MG TAB PO SCH (08:19)
[2018-04-13] MEDS: DOCUSATE SODIUM 100 MG CAP PO SCH (08:19)
[2018-04-13] MEDS: SODIUM CHLORIDE 0.9% FLUSH 10 ML FLUSH IV FLUSH SCH (08:19)
[2018-04-13] MEDS: MEGESTROL ACETATE 40 MG TAB PO SCH (08:19)
[2018-04-13] MEDS: METOPROLOL TARTRATE 25 MG TAB PO SCH (08:19)
[2018-04-13] MEDS: FERROUS SULFATE 325 MG (65 MG ELEMENTAL IRON) TAB PO SCH (08:19)
[2018-04-13] MEDS: CHOLECALCIFEROL (VIT D3) 1000 UNIT TAB PO SCH (08:19)
[2018-04-13] MEDS: PANTOPRAZOLE SOD 20 MG DELAYED RELEASE TAB PO SCH (08:19)
--- NOTE | 2018-04-13 09:41 | HHI.PR ---
Subjective Remarks 6-3 NO NEW COMPLAINTS LESS SOB DW RN AND PT AND FAMILY AWAIT [facility] APPROVAL FOR SNF AM LABS CONTINUE PT AND OT AND [facility] BY [facility] 6- HOPEFULLY APPROVED FOR SNF LATER TODAY LAURIE RN AND PT AND CM Objective Vitals Vital Signs Date Time Temp Pulse Resp B/P (MAP) Pulse Ox O2 Delivery O2 Flow Rate FiO2 04/13/18 09:00 62 04/13/18 08:00 68 04/13/18 07:45 97.4 70 18 159/70 (99) 98 04/13/18 07:00 71 04/13/18 06:08 79 04/13/18 05:17 59 04/13/18 05:01 97.8 69 154/70 (98) 97 04/13/18 04:37 57 04/13/18 03:47 65 04/13/18 02:49 68 04/13/18 01:29 57 04/13/18 00:19 98.6 69 141/63 (89) 97 04/13/18 00:17 56 04/12/18 23:00 69 04/12/18 22:17 63 04/12/18 21:12 69 04/12/18 20:14 98.1 68 122/57 (78) 98 04/12/18 20:11 68 04/12/18 19:00 68 04/12/18 18:00 78 04/12/18 17:00 68 04/12/18 16:13 98.6 65 18 147/64 (91) 99 04/12/18 16:13 65 04/12/18 15:00 66 04/12/18 14:00 72 04/12/18 13:00 65 04/12/18 12:00 65 04/12/18 11:30 98.5 71 18 141/66 (91) 99 04/12/18 11:30 71 04/12/18 10:00 67 I/O 04/12/18 04/12/18 04/12/18 04/13/18 04/13/18 04/13/18 07:00 15:00 23:00 07:00 15:00 23:00 Intake Total 220 ml 820 ml 240 ml Output Total 250 ml 300 ml 275 ml Balance -30 ml 520 ml -35 ml Intake Oral 120 ml 720 ml 240 ml IV Total 100 ml 100 ml Output Urine Total 250 ml 300 ml 275 ml # Bowel Movements 1 1 Result Diagram: 04/13/18 0453 04/13/18 0453 Other Results Laboratory Tests Test 04/12/18 05:37 04/13/18 04:53 White Blood Count 8.9 TH/MM3 6.8 TH/MM3 Red Blood Count 3.25 MIL/MM3 3.19 MIL/MM3 Hemoglobin 9.6 GM/DL 9.5 GM/DL Hematocrit 28.4 % 28.4 % Mean Corpuscular Volume 87.6 FL 89.2 FL Mean Corpuscular Hemoglobin 29.5 PG 29.7 PG Mean Corpuscular Hemoglobin Concent 33.7 % 33.3 % Red Cell Distribution Width 17.5 % 17.7 % Platelet Count 141 TH/MM3 126 TH/MM3 Mean Platelet Volume 9.5 FL 9.9 FL Neutrophils (%) (Auto) 71.5 % 62.4 % Lymphocytes (%) (Auto) 19.0 % 23.3 % Monocytes (%) (Auto) 6.4 % 7.0 % Eosinophils (%) (Auto) 2.6 % 6.8 % Basophils (%) (Auto) 0.5 % 0.5 % Neutrophils # (Auto) 6.3 TH/MM3 4.3 TH/MM3 Lymphocytes # (Auto) 1.7 TH/MM3 1.6 TH/MM3 Monocytes # (Auto) 0.6 TH/MM3 0.5 TH/MM3 Eosinophils # (Auto) 0.2 TH/MM3 0.5 TH/MM3 Basophils # (Auto) 0.0 TH/MM3 0.0 TH/MM3 CBC Comment DIFF FINAL DIFF FINAL Differential Comment Blood Urea Nitrogen 25 MG/DL 23 MG/DL Creatinine 1.80 MG/DL 1.65 MG/DL Random Glucose 119 MG/DL 104 MG/DL Calcium Level 8.7 MG/DL 8.4 MG/DL Sodium Level 148 MEQ/L 147 MEQ/L Potassium Level 3.8 MEQ/L 3.6 MEQ/L Chloride Level 115 MEQ/L 115 MEQ/L Carbon Dioxide Level 22.7 MEQ/L 23.4 MEQ/L Anion Gap 10 MEQ/L 9 MEQ/L Estimat Glomerular Filtration Rate 37 ML/MIN 41 ML/MIN Total Protein 5.3 GM/DL Albumin 2.2 GM/DL Phosphorus Level 2.5 MG/DL Magnesium Level 1.6 MG/DL Alkaline Phosphatase 161 U/L Aspartate Amino Transf (AST/SGOT) 23 U/L Alanine Aminotransferase (ALT/SGPT) 42 U/L Total Bilirubin 0.3 MG/DL Free Thyroxine 1.26 NG/DL Thyroid Stimulating Hormone 3rd Gen 0.919 uIU/ML Imaging Last Impressions Chest X-Ray 04/11/18 0600 Signed Impressions: CONCLUSION: Minimal suspected atelectasis or consolidation at the lateral left lung base. Upper Extremity Ultrasound 04/10/18 0000 Signed Impressions: CONCLUSION: 1. No evidence of deep venous thrombosis. 2. Diffuse edema with limited visualization and evaluation cephalic vein. Renal Ultrasound 03/31/18 1247 Signed Impressions: CONCLUSION: 1. Unremarkable bilateral renal ultrasound. Objective Remarks GENERAL: Awake and alert talkative and somewhat cooperative has right sided facial weakness and numbness SKIN: Warm and dry. HEAD: Atraumatic. Normocephalic. EYES: Pupils equal and round. No scleral icterus. No injection or drainage. Extraocular muscles intact ENT: No nasal bleeding or discharge. Mucous membranes pink and moist. NECK: Trachea midline. No JVD. Supple CARDIOVASCULAR: IRRegular rate and rhythm. S1-S2 no S3 or S4 RESPIRATORY: No accessory muscle use. Clear to auscultation. Breath sounds equal bilaterally. GASTROINTESTINAL: Abdomen soft, non-tender, nondistended. Hepatic and splenic margins not palpable. MUSCULOSKELETAL: Extremities without clubbing, cyanosis, or edema. No obvious deformities. NEUROLOGICAL: Awake and alert. No obvious cranial nerve deficits. Motor grossly within normal limits. 4 out of 5 muscle strength in the arms and legs. ABNormal speech. PSYCHIATRIC: Appropriate mood and affect; insight and judgment normal. Procedures 5 INDICATIONS: The patient is a 77 yr old male here for an EGD due to iron deficiency anemia PROCEDURE PERFORMED: EGD w/ biopsy MEDICATIONS: Per Anesthesia and None. TOPICAL ANESTHETIC: CONSENT: The patient understands the risks and benefits of the procedure and understands that these risks include, but are not limited to: sedation, allergic reaction, infection, perforation and/or bleeding. Alternative means of evaluation and treatment include, among others: physical exam, x-rays, and/or surgical intervention. The patient elects to proceed with this endoscopic procedure. medical equipment was checked for proper function. Hand hygiene and appropriate measures for infection prevention was taken. After the risks, benefits and alternatives of the procedure were thoroughly explained, Informed consent was verified, confirmed and timeout was successfully executed by the treatment team. The patient was anesthetized with topical anesthesia and the Pentax [id number] endoscope was introduced through the mouth and advanced to the second portion of the duodenum. Retroflexed views revealed a hiatal hernia The gastroscope was then slowly withdrawn and removed. 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 The stricture was easily traversable. STOMACH: There was erythematous moderate gastritis in the gastric antrum. A biopsy was performed using cold forceps. Sample sent for histology. DUODENUM: Moderate duodenal inflammation was found in the bulb and second portion of the duodenum. ADVERSE EVENTS: There were no complications. IMPRESSIONS: 1. There was a short stricture in the distal esophagus 2. There was erythematous gastritis in the gastric antrum; biopsy was performed 3. Duodenal inflammation was found in the bulb and second portion of the duodenum 4. Retroflexed views revealed a hiatal hernia RECOMMENDATIONS: 1. Await biopsy results. Biopsy results will not be ready for 7-10 days. If you don't hear from us in two weeks, call our office for biopsy results. 2. Anti-reflux regimen 3. Continue PPI 4. Avoid NSAIDS 5. Colonoscopy PATIENT CONDITION: stable DISPOSITION: Inpatient REPEAT EXAM: Return 3 months EGD pending biopsy results Medications and IVs Current Medications Sodium Chloride 1,000 ml @ 125 mls/hr Q8H IV Last administered on 04/01/18at 05 :46; Start 03/31/18 at 10:33; Stop 04/01/18 at 06:42; Status DC Sodium Chloride (NS Flush) 2 ml UNSCH PRN IV FLUSH FLUSH AFTER USING IV ACCESS ; Start 03/31/18 at 10:45 Sodium Chloride (NS Flush) 2 ml BID IV FLUSH Last administered on 04/13/18at 08: 19; Start 03/31/18 at 21:00 Acetaminophen (Tylenol) 650 mg Q6H PRN PO PAIN 1-10 AND/OR FEVER >101F; Start 03/31/18 at 10:45 Famotidine (Pepcid) 20 mg Q12HR PO ; Start 03/31/18 at 21:00; Stop 04/01/18 at 09:21; Status DC Albuterol/ Ipratropium (Duoneb Neb) 1 ampule Q2HR NEB PRN NEB WHEEZING Last administered on 04/13/18 07:52; Start 03/31/18 at 10:45 Heparin Sodium (Porcine) (Heparin Inj) 5,000 units Q12H SQ Last administered on 04/12/18 21:31; Start 03/31/18 at 11:00 Miscellaneous Information ([facility] Nursing Information) 1 [id number] Last administered on 03/31/18at 10:45; Start 03/31/18 at 10:45 Chlorhexidine Gluconate (Chlorhexidine 2% Cloth) Taper DAILY@04 TOP ; Start at 04:00; Stop 03/28/19 at 03:59 Chlorhexidine Gluconate (Chlorhexidine 2% Cloth) 3 pack UNSCH PRN TOP HYGIENIC CARE; Start 03/31/18 at 10:45 Aspirin (Ecotrin Ec) 81 mg DAILY PO Last administered on 04/13/18 08:18; Start 04/01/18 at 09:00 Budesonide/ Formoterol Fumarate (Symbicort 160-4.5 Mcg Inh) 2 puff Q12HR INH Last administered on 04/13/18 08:17; Start 03/31/18 at 21:00 Cholecalciferol (Vitamin D3) 2,000 units DAILY PO Last administered on 08:19; Start 04/01/18 at 09:00 Clopidogrel Bisulfate (Plavix) 75 mg DAILY PO Last administered on 04/13/18 08: 18; Start 04/01/18 at 09:00 Docusate Sodium (Colace) 100 mg BID PO Last administered on 04/12/18 09:00; Start 03/31/18 at 21:00 Metoprolol Tartrate (Lopressor) 12.5 mg BID PO ; Start 03/31/18 at 21:00; Stop 04/01/18 at 15:19; Status DC Oxycodone/ Acetaminophen (Percocet 5-325 Mg) 1 tab Q4H PRN PO PAIN SCALE 1 TO 5 Last administered on 04/06/18at 21:48; Start 03/31/18 at 10:45 Non-Formulary Medication 1 cap DAILY PO ; Start 04/01/18 at 09:00; Stop at 09:00; Status DC Insulin Aspart (NovoLOG SUPPLEMENTAL SCALE) 1 Q4HR SQ Last administered on 04/02at 20:50; Start 03/31/18 at 10:45; Stop 04/03/18 at 11:10; Status DC Dextrose (D50w (Vial) Inj) 50 ml UNSCH PRN IV PUSH HYPOGLYCEMIA - SEE COMMENTS ; Start 03/31/18 at 11:00 Glucagon (Glucagon Inj) 1 mg UNSCH PRN OTHER HYPOGLYCEMIA-SEE COMMENTS; Start 03/31/18 at 11:00 Miscellaneous (Pill Splitter) 1 ea UNSCH PRN OTHER SEE LABEL COMMENTS; Start at 11:00 Sodium Chloride 1,000 ml @ 999 mls/hr BOLUS ONCE IV Last administered on 03/31at 14:55; Start 03/31/18 at 14:45; Stop 03/31/18 at 15:45; Status DC Sodium Chloride 1,000 ml @ 999 mls/hr BOLUS ONCE IV Last administered on 03/31at 14:55; Start 03/31/18 at 14:15; Stop 03/31/18 at 15:15; Status DC Sodium Chloride 1,000 ml @ 45 mls/hr [id number] IV Last administered on at 08:27; Start 04/01/18 at 06:45 Famotidine (Pepcid) 10 mg Q12HR PO Last administered on 04/07/18at 21:09; Start 04/01/18 at 21:00; Stop 04/08/18 at 07:14; Status DC Metoprolol Tartrate (Lopressor) 25 mg Q12HR PO Last administered on 04/13/18at 08 :19; Start 04/01/18 at 21:00 Insulin Aspart (NovoLOG SUPPLEMENTAL SCALE) 1 ACHS SQ Last administered on at 22:17; Start 04/03/18 at 12:00 Potassium Chloride (KCl) 20 meq ONCE ONCE PO ; Start 04/03/18 at 16:00; Stop at 16:01; Status DC Potassium Bicarb/ Potassium Chloride (K-Lyte Cl Eff) 25 meq ONCE ONCE PO Last administered on 04/03/18at 20:49; Start 04/03/18 at 19:00; Stop 04/03/18 at 19:01; Status DC Ferrous Sulfate (Ferrous Sulfate) 325 mg DAILY PO Last administered on 08:19; Start 04/04/18 at 13:30 Ceftriaxone Sodium 1000 mg/ Sodium Chloride 100 ml @ 200 mls/hr Q24H IV Last administered on 04/07/18 05:04; Start 04/05/18 at 04:00; Stop 04/07/18 at 12:16 ; Status DC Ondansetron HCl (Zofran Odt) 4 mg Q6H PRN PO NAUSEA Last administered on at 17:48; Start 04/05/18 at 15:45 Megestrol Acetate (Megace) 40 mg Q12HR PO Last administered on 04/13/18 08:19; Start 04/05/18 at 21:00 Ampicillin Sodium/ Sulbactam Sodium 1500 mg/Sodium Chloride 100 ml @ 200 mls/ hr BID IV Last administered on 04/13/18 08:16; Start 04/07/18 at 13:00 Miscellaneous Information ([facility] Nursing Information) ENTER PATIENT'S HT I... Q30M .XX ; Start 04/07/18 at 12:30; Stop 04/07/18 at 13:03; Status DC Pantoprazole Sodium (Protonix Inj) 40 mg ONCE ONCE IV PUSH Last administered on 04/08/18 08:33; Start 04/08/18 at 07:15; Stop 04/08/18 at 07:16; Status DC Pantoprazole Sodium (Protonix) 20 mg DAILY PO Last administered on 04/13/18 08: 19; Start 04/09/18 at 09:00 Sodium Chloride 250 ml @ 15 mls/hr ONCE ONCE IV Last administered on 16:31; Start 04/08/18 at 12:45; Stop 04/09/18 at 05:24; Status DC Polyethylene Glycol/ Electrolytes (Colyte Liq) 4,000 ml NOW ONCE PO Last administered on 04/08/18 16:31; Start 04/08/18 at 13:50; Stop 04/08/18 at 13:51 ; Status DC Amlodipine Besylate (Norvasc) 5 mg ONCE ONCE PO Last administered on at 14:13; Start 04/09/18 at 13:30; Stop 04/09/18 at 13:39; Status DC Amlodipine Besylate (Norvasc) 5 mg DAILY PO Last administered on 04/13/18at 08:19 ; Start 04/10/18 at 09:00 Miscellaneous Information ([facility] Nursing Information) ALL NURSING DEPARTME... UNSCH PRN .XX SEE LABEL COMMENTS; Start 04/09/18 at 13:30; Stop 04/10/18 at 13: 29; Status DC Dronabinol (Marinol) 2.5 mg BID@11,16 PO Last administered on 04/12/18at 17:16; Start 04/10/18 at 11:00 Methylprednisolone Sodium Succinate (SoluMEDROL INJ) 125 mg ONCE ONCE IV PUSH Last administered on 04/10/18at 09:22; Start 04/10/18 at 08:15; Stop 04/10/18 at 08: 16; Status DC Furosemide (Lasix Inj) 40 mg ONCE ONCE IV PUSH Last administered on 04/10/18at 09:22; Start 04/10/18 at 08:15; Stop 04/10/18 at 08:16; Status DC A/P Problem List: (1) Acute on chronic kidney failure ICD Code: N17.9 - Acute kidney failure, unspecified; N18.9 - Chronic kidney disease, unspecified (2) Dehydration ICD Code: E86.0 - Dehydration Status: Resolved (3) CVA (cerebral vascular accident) ICD Code: I63.9 - Cerebral infarction, unspecified (4) CAD (coronary artery disease) ICD Code: I25.10 - Atherosclerotic heart disease of [place] coronary artery without angina pectoris (5) Aortic stenosis ICD Code: I35.0 - Nonrheumatic aortic (valve) stenosis (6) COPD (chronic obstructive pulmonary disease) ICD Code: J44.9 - Chronic obstructive pulmonary disease, unspecified (7) Diastolic CHF ICD Code: I50.30 - Unspecified diastolic (congestive) heart failure Assessment and Plan 77-year-old with right MCA CVA on 03-27 following TAVR, readmitted for prerenal DOREEN and dehydration 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 Rodríguez Acute onset of dyspnea Patient responded favorably to combination of Lasix and Solu-Medrol Patient is stable so no need to repeat dosing today s/p TAVR on 03/11 with common iliac access Lasix was held on admission along with lisinopril Patient's lungs are more clear, ankles show less edema, he is comfortable Single dose of Lasix given, may repeat if dyspnea returns h/o COPD Patient was covered with single dose of Solu-Medrol this morning, dyspnea improved Continue supportive meds such as oxygen and nebulizers, repeat Solu-Medrol dosing if needed Poor PO intake, acute renal insufficiency Speech therapy following, swallow eval completed Dietary conducting calorie count reports that p.o. intake has improved Continue pured diet with nectar thickened liquids. Patient refused offer of PEG tube, adamantly refused Marinol added to encourage p.o. intake Appreciate nephrology consult Anemia. Hemoglobin previously at 7.9 Patient received 1 unit packed red blood cells, blood appears stable at 9.6 Continue to follow hemoglobin trend Enterococcus UTI Started on Augmentin by nephrology. Appreciate assistance. h/o hypertension Home meds held due to low pressures related to dehydration Type II diabetes Sliding-scale insulin coverage with Accu-Cheks Diabetic diet UTI ENTEROCOCCUS FAECALIS CAN SWITCH TO PO MEDS AND DC TO SNF TODAY SEE [id number] SEE [employer] clerk Planning Discharge Planning Patient would benefit from inpatient rehab admission. OT, PT following. PT previously recommended home health, but patient did not do well at home on last discharge Problem Qualifiers (1) Acute on chronic kidney failure: (2) CVA (cerebral vascular accident): Stanislaw Thompson DO Apr 13, 2018 09:41
[2018-04-13] MEDS ORDERED: OXYC1TAB63 PO (09:47)
[2018-04-13] MEDS ORDERED: LACTCHW3 CHEW (09:47)
[2018-04-13] MEDS ORDERED: DRON2.5 PO (09:47)
[2018-04-13] MEDS ORDERED: Albuterol-Ipratropium Neb NEB (09:47)
[2018-04-13] MEDS ORDERED: CIPR-9 PO (09:47)
[2018-04-13] MEDS ORDERED: FERR325T20 PO (09:47)
[2018-04-13] MEDS ORDERED: MEGE40TA PO (09:47)
[2018-04-13] MEDS ORDERED: AMLO5 PO (09:47)
[2018-04-13] MEDS ORDERED: METO25TA3 PO (09:47)
[2018-04-13] MEDS ORDERED: PANT20 PO (09:47)
--- NOTE | 2018-04-13 09:51 | HHI.DS ---
Discharge Summary Admission Date March 31, 2018 at 09:52 Discharge Date: Apr 13, 2018 Admitting Diagnosis (1) Acute on chronic kidney failure ICD Code: N17.9 - Acute kidney failure, unspecified; N18.9 - Chronic kidney disease, unspecified Diagnosis: Principal (2) Dehydration ICD Code: E86.0 - Dehydration Diagnosis: Principal Status: Resolved (3) CVA (cerebral vascular accident) ICD Code: I63.9 - Cerebral infarction, unspecified Diagnosis: Principal (4) CAD (coronary artery disease) ICD Code: I25.10 - Atherosclerotic heart disease of [place] coronary artery without angina pectoris Diagnosis: Secondary (5) Aortic stenosis ICD Code: I35.0 - Nonrheumatic aortic (valve) stenosis Diagnosis: Secondary (6) COPD (chronic obstructive pulmonary disease) ICD Code: J44.9 - Chronic obstructive pulmonary disease, unspecified Diagnosis: Secondary (7) Diastolic CHF ICD Code: I50.30 - Unspecified diastolic (congestive) heart failure Diagnosis: Secondary Procedures 5-31 INDICATIONS: The patient is a 77 yr old male here for an EGD due to iron deficiency anemia PROCEDURE PERFORMED: EGD w/ biopsy MEDICATIONS: Per Anesthesia and None. TOPICAL ANESTHETIC: CONSENT: The patient understands the risks and benefits of the procedure and understands that these risks include, but are not limited to: sedation, allergic reaction, infection, perforation and/or bleeding. Alternative means of evaluation and treatment include, among others: physical exam, x-rays, and/or surgical intervention. The patient elects to proceed with this endoscopic procedure. medical equipment was checked for proper function. Hand hygiene and appropriate measures for infection prevention was taken. After the risks, benefits and alternatives of the procedure were thoroughly explained, Informed consent was verified, confirmed and timeout was successfully executed by the treatment team. The patient was anesthetized with topical anesthesia and the Pentax [id number] endoscope was introduced through the mouth and advanced to the second portion of the duodenum. Retroflexed views revealed a hiatal hernia The gastroscope was then slowly withdrawn and removed. 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 The stricture was easily traversable. STOMACH: There was erythematous moderate gastritis in the gastric antrum. A biopsy was performed using cold forceps. Sample sent for histology. DUODENUM: Moderate duodenal inflammation was found in the bulb and second portion of the duodenum. ADVERSE EVENTS: There were no complications. IMPRESSIONS: 1. There was a short stricture in the distal esophagus 2. There was erythematous gastritis in the gastric antrum; biopsy was performed 3. Duodenal inflammation was found in the bulb and second portion of the duodenum 4. Retroflexed views revealed a hiatal hernia RECOMMENDATIONS: 1. Await biopsy results. Biopsy results will not be ready for 7-10 days. If you don't hear from us in two weeks, call our office for biopsy results. 2. Anti-reflux regimen 3. Continue PPI 4. Avoid NSAIDS 5. 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 He then underwent TAVR by Dr. Alberto on above date. Post op developed acute CVA, had right facial droop and almost flaccid right upper extremity paralysis, significant weakness of right lower extremity. He gradually made improvement and was able to regain some strength of the upper extremity and was able to walk with a walker. He was eventually discharged to rehab facility on 03/17/2018. Apparently was discharged home after a week, he underwent outpatient lab work today which showed a creatinine approximately 6. With this information patient was admitted directly to the [facility] for further workup. Labs here at [facility] showed BUN 162 and creatinine 6.96. Clinical picture is more consistent with dehydration, prerenal azotemia and BUN/ creatinine ratio of 23.5. FeNa pending. gives additional history of poor p.o. intake over the last 1 week. Patient does not have any significant acidosis and no acute indication for hemodialysis at this time. I have ordered 2 L normal saline bolus, and we will continue maintenance fluid at 125 ml per hour. CBC/BMP: 04/13/18 0453 04/13/18 0453 Significant Findings Laboratory Tests Test 04/12/18 05:37 04/13/18 04:53 Red Blood Count 3.25 MIL/MM3 (4.50-5.90) 3.19 MIL/MM3 (4.50-5.90) Hemoglobin 9.6 GM/DL (13.0-17.0) 9.5 GM/DL (13.0-17.0) Hematocrit 28.4 % (39.0-51.0) 28.4 % (39.0-51.0) Red Cell Distribution Width 17.5 % (11.6-17.2) 17.7 % (11.6-17.2) Platelet Count 141 TH/MM3 (150-450) 126 TH/MM3 (150-450) Neutrophils (%) (Auto) 71.5 % (16.0-70.0) Blood Urea Nitrogen 25 MG/DL (7-18) 23 MG/DL (7-18) Creatinine 1.80 MG/DL (0.60-1.30) 1.65 MG/DL (0.60-1.30) Random Glucose 119 MG/DL (74-106) Sodium Level 148 MEQ/L (136-145) 147 MEQ/L (136-145) Chloride Level 115 MEQ/L (98-107) 115 MEQ/L (98-107) Estimat Glomerular Filtration Rate 37 ML/MIN (>89) 41 ML/MIN (>89) Eosinophils (%) (Auto) 6.8 % (0.0-4.0) Eosinophils # (Auto) 0.5 TH/MM3 (0-0.4) Total Protein 5.3 GM/DL (6.4-8.2) Albumin 2.2 GM/DL (3.4-5.0) Calcium Level 8.4 MG/DL (8.5-10.1) Alkaline Phosphatase 161 U/L (45-117) Imaging Last Impressions Chest X-Ray 04/11/18 0600 Signed Impressions: CONCLUSION: Minimal suspected atelectasis or consolidation at the lateral left lung base. Upper Extremity Ultrasound 04/10/18 0000 Signed Impressions: CONCLUSION: 1. No evidence of deep venous thrombosis. 2. Diffuse edema with limited visualization and evaluation cephalic vein. Renal Ultrasound 03/31/18 1247 Signed Impressions: CONCLUSION: 1. Unremarkable bilateral renal ultrasound. PE at Discharge GENERAL: Awake and alert talkative and somewhat cooperative has right sided facial weakness and numbness SKIN: Warm and dry. HEAD: Atraumatic. Normocephalic. EYES: Pupils equal and round. No scleral icterus. No injection or drainage. Extraocular muscles intact ENT: No nasal bleeding or discharge. Mucous membranes pink and moist. NECK: Trachea midline. No JVD. Supple CARDIOVASCULAR: IRRegular rate and rhythm. S1-S2 no S3 or S4 RESPIRATORY: No accessory muscle use. Clear to auscultation. Breath sounds equal bilaterally. GASTROINTESTINAL: Abdomen soft, non-tender, nondistended. Hepatic and splenic margins not palpable. MUSCULOSKELETAL: Extremities without clubbing, cyanosis, or edema. No obvious deformities. NEUROLOGICAL: Awake and alert. No obvious cranial nerve deficits. Motor grossly within normal limits. 4 out of 5 muscle strength in the arms and legs. ABNormal speech. PSYCHIATRIC: Appropriate mood and affect; insight and judgment normal. 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 He then underwent TAVR by Dr. Alberto on above date. Post op developed acute CVA, had right facial droop and almost flaccid right upper extremity paralysis, significant weakness of right lower extremity. He gradually made improvement and was able to regain some strength of the upper extremity and was able to walk with a walker. He was eventually discharged to rehab facility on 03/17/2018. Apparently was discharged home after a week, he underwent outpatient lab work today which showed a creatinine approximately 6. With this information patient was admitted directly to the [facility] for further workup. Labs here at [facility] showed BUN 162 and creatinine 6.96. Clinical picture is more consistent with dehydration, prerenal azotemia and BUN/ creatinine ratio of 23.5. FeNa pending. gives additional history of poor p.o. intake over the last 1 week. Patient does not have any significant acidosis and no acute indication for hemodialysis at this time. I have ordered 2 L normal saline bolus, and we will continue maintenance fluid at 125 ml per hour. 6-3 NO NEW COMPLAINTS LESS SOB DW RN AND PT AND FAMILY AWAIT [facility] APPROVAL FOR SNF AM LABS CONTINUE PT AND OT AND [facility] BY [facility] 6-4 HOPEFULLY APPROVED FOR SNF LATER TODAY DW RN AND PT AND CM PATIENT SEEN BY CARDIOLOGY AND RENAL NEEDS TO GO TO SNF FAILED AT HOME HEALTH NEEDS SNF AWAIT [facility] APPROVAL 3008 DONE RX WRITTEN FOLLOW UP WITH CARDIO. RENAL, AND PCP AFTER DC Pt Condition on Discharge: Good Discharge Disposition: Discharge to SNF Discharge Time: > 30 minutes Discharge Instructions DIET: Follow Instructions for: Heart Healthy Diet, Diabetic Diet Speech Therapy-Diet Recommends: Regular Activities you can perform: Weight Bearing as Som Follow up Referrals: Cardiology - 2 Weeks with Ty Alberto MD Nephrology - 2 Weeks with Chaparro Joyce MD PCP Follow-up - 2 Weeks with Kalin Palma MD New Medications: Ciprofloxacin (Cipro) 500 Mg Tab 500 MG PO BID for Infection, #20 TAB 0 Refills Lactobacillus Acidophilus (Lactinex) 1 Chew 1 TAB CHEW TID for Nutritional Supplement, #90 TAB 0 Refills Amlodipine (Norvasc) 5 Mg Tab 5 MG PO DAILY for Blood Pressure Management, #30 TAB Dronabinol (Marinol) 2.5 Mg Cap 2.5 MG PO BID@11,16 for ANOREXIA, #60 CAP Ferrous Sulfate (Ferosul) 325 Mg (65 Mg Iron) Tablet 325 MG PO DAILY for ANEMIA, #30 TAB Megestrol (Megestrol) 40 Mg Tab 40 MG PO Q12HR for ANOREXIA, #60 TAB Metoprolol Tartrate (Metoprolol Tartrate) 25 Mg Tab 25 MG PO Q12HR for Blood Pressure Management, #60 TAB Pantoprazole (Protonix) 20 Mg Tab 20 MG PO DAILY for Manage Heartburn, #30 TAB [Albuterol-Ipratropium Neb] () 1 AMPULE NEBU 1 AMPULE NEB Q2HR NEB PRN for WHEEZING, #180 AMPULE Continued Medications: Albuterol 18 GM Inh (Ventolin Hfa 18 GM Inh) 90 Mcg/Act Aer 1 PUFF INH Q4H PRN for SHORTNESS OF BREATH, #1 INHALER [address] (Aspirin DR) 81 Mg Tabdr 81 MG PO DAILY, TAB 0 Refills Budesonide-Formoterol Inh (Symbicort Inh) 160-4.5 Mcg/Act Aero 2 PUFF INH Q12HR, #1 INHALER 0 Refills Cholecalciferol (Vitamin D3) 1,000 Unit Tab 2000 UNITS PO DAILY for Nutritional Supplement, #1 BOTTLE 0 Refills Clopidogrel (Plavix) 75 Mg Tab 75 MG PO DAILY for Blood Clot Prevention, #30 TAB 2 Refills Docusate Sodium (Dok) 100 Mg Cap 100 MG PO BID for Constipation, #60 CAP 0 Refills Fish Oil-Cholecalciferol ([place]-3 Fish Oil/Vitamin) 1,000-1,000 Mg Cap 1 CAP PO DAILY for Nutritional Supplement, CAP 0 Refills Multiple Vitamins W/ Minerals (Thera M Plus) 1 Tab 1 TAB PO DAILY for multi vitamin, #30 TAB 2 Refills Oxycodone HCl/Acetaminophen (Oxycodone-Acetaminophen 5-325) 5 Mg-325 Mg Tablet 1 TAB PO Q4H PRN for PAIN SCALE 1 TO 5, #40 TAB 0 Refills (This prescription has been renewed) Rosuvastatin (Crestor) 40 Mg Tab 40 MG PO DAILY for Cholesterol Management, #30 TAB 0 Refills Sitagliptin (Januvia) 100 Mg Tab 100 MG PO DAILY for Blood Sugar Management, #30 TAB 0 Refills Discontinued Medications: Furosemide (Furosemide) 40 Mg Tab 40 MG PO DAILY for CHF, #30 TAB 0 Refills Lisinopril (Lisinopril) 10 Mg Tab 10 MG PO DAILY, #30 TAB 0 Refills Lisinopril-Hctz (Lisinopril-Hctz) 20-12.5 Mg Tab 1 TAB PO DAILY for Blood Pressure Management, #30 TAB 0 Refills Metoprolol Tartrate (Metoprolol Tartrate) 25 Mg Tab 12.5 MG PO BID for Blood Pressure Management, #60 TAB 2 Refills Ranitidine (Ranitidine) 150 Mg Tab 150 MG PO DAILY for Heartburn Management, #30 TAB 0 Refills Stanislaw Thompson DO Apr 13, 2018 09:51
[2018-04-13] MEDS: HEPARIN SODIUM - SQ 10,000 UNITS/ML VIAL SQ SCH (10:37)
[2018-04-13] MEDS: DRONABINOL 2.5 MG CAP PO SCH (10:37)
[2018-04-13] MEDS: SODIUM CHLOR 0.45% 1000 ML INJ 1,000 ML IV SCH (10:59)
--- NOTE | 2018-04-13 12:06 | PQ ---
Physician Query Response Document PATIENT: AMADO FRANKS : 1940 ADMIT DATE: 03/31/2018 9:52 AM DISCH DATE: RESPONDING PROVIDER #: SGRMARELY QUERY TEXT: CDS Clarification Acute posthemorrhagic anemia in the setting of drop in H Other explanation of clinical findings. Unable to determine (no explanation for clinical findings). The patient's Clinical Indicators include: The medical record reflects the following clinical findings, treatment, and risk factors. * Clinical Indicators: Drop in H * Risk Factors: recent TAVR * Treatment: Blood transfusion, IVF, seriel H Please clarify and document your clinical opinion in the progress notes and discharge summary includi ng the definitive and/or presumptive diagnosis (suspected or probable), related to the above clinical findings. Please include clinical findings supporting your diagnosis. Thank you, Jennifer Perdomo : CDS/RN ext. [phone] Query created by: Jennifer Perdomo on 04/13/2018 11:24 AM RESPONSE TEXT: PATIENT WITH ACUTE POSTHEMORRHAGIC ANEMIA IN THE SETTING OF DROP IN HEMOGLOBIN AND HEMATOCRIT FROM 10 .5/32.5 TO 7.9/23.7 TREATED WITH TRANSFUSION Electronically signed by: Stanislaw Thompson 04/13/2018 12:03 PM
[2018-04-13 18:52] LABS: HEMOGLOBIN A1C 6.5 % (4.3-6.0)
== END 2018-04-13 15:57 | DRG 683 ==
LOC: HCPC 09:52
PROVIDERS: ADMIT Hospitalist; ATTEND Hospitalist
PROC: 30233N1 Transfusion of Nonautologous Red Blood Cells into Peripheral Vein, Percutaneous Approach (ICD-10-PCS; 2018-04-09)
PROC: 0DB78ZX Excision of Stomach, Pylorus, Via Natural or Artificial Opening Endoscopic, Diagnostic (ICD-10-PCS; principal; 2018-04-09 12:59)
DX: N17.9 Acute kidney failure, unspecified (principal); I13.0 Hypertensive heart and chronic kidney disease with heart failure and stage 1 through stage 4 chronic kidney disease, or unspecified chronic kidney disease; I47.2 Ventricular tachycardia; E87.0 Hyperosmolality and hypernatremia; I50.30 Unspecified diastolic (congestive) heart failure; J43.9 Emphysema, unspecified; K22.2 Esophageal obstruction; I69.351 Hemiplegia and hemiparesis following cerebral infarction affecting right dominant side; N39.0 Urinary tract infection, site not specified; E11.22 Type 2 diabetes mellitus with diabetic chronic kidney disease; R13.10 Dysphagia, unspecified; N18.9 Chronic kidney disease, unspecified; E86.0 Dehydration; I25.10 Atherosclerotic heart disease of native coronary artery without angina pectoris; I69.320 Aphasia following cerebral infarction; I25.5 Ischemic cardiomyopathy; E78.5 Hyperlipidemia, unspecified; I69.392 Facial weakness following cerebral infarction; K21.9 Gastro-esophageal reflux disease without esophagitis; I69.391 Dysphagia following cerebral infarction; N50.89 Other specified disorders of the male genital organs; K59.00 Constipation, unspecified; K29.80 Duodenitis without bleeding; K44.9 Diaphragmatic hernia without obstruction or gangrene; K29.50 Unspecified chronic gastritis without bleeding; E87.6 Hypokalemia; B95.2 Enterococcus as the cause of diseases classified elsewhere; D50.9 Iron deficiency anemia, unspecified; Z79.84 Long term (current) use of oral hypoglycemic drugs; Z87.891 Personal history of nicotine dependence; Z95.2 Presence of prosthetic heart valve; Z98.61 Coronary angioplasty status
CPT/HCPCS: 36430; 71045; 76775; 76937; 80048; 80053; 80069; 81001; 82570; 82607; 82728; 82746; 82948; 83036; 83540; 83550; 83605; 83735; 84100; 84300; 84439; 84443; 85014; 85018; 85025; 85044; 86850; 86900; 86901; 86920; 87077; 87086; 87186; 87641; 88305; 88312; 93306; 93971; 94640; 94664; 94667; 94668; C9113; J0295; J0696; J1644; J1815; J1940; J2930; J7030; J7050; P9016; Q0167

== ENCOUNTER 2018-04-15 08:03 | Inpatient (IN) | payer OTHER, MEDICARE ==
[~2018-04-15] VITALS: Ht 162.6 cm; Wt 64.8 kg
[2018-04-15] VITALS (18 sets, daily range): BP systolic 115–148; BP diastolic 56–89; PULSE 71–99; RESP 16–23; TEMP 97.8–98.4; O2SAT 98–100
[~2018-04-15 08:03] MED LIST changes: +AMLO5 PO; +Albuterol-Ipratropium Neb NEB; +CIPR-9 PO; +DRON2.5 PO; +FERR325T20 PO; -FURO40TA PO; +LACTCHW3 CHEW; -LISI10TA3 PO; -LISI20TA PO; +MEGE40TA PO; +PANT20 PO; -RANI150T PO
[2018-04-15] MEDS ORDERED: SODIUM CHLORIDE 0.9% FLUSH 10 ML FLUSH IVF PRN (08:30)
[2018-04-15] MEDS: RESP: ALBUTEROL 2.5 MG/IPRATROPIUM 0.5 MG NEB (SCH) INH (08:31)
--- NOTE | 2018-04-15 08:33 | PD ---
HPI Chief Complaint: Respiratory Distress Time Seen by Provider: 08:06 Travel History International Travel<30 days: No Contact w/Intl Traveler<30days: No Traveled to known affect area: No History of Present Illness HPI This patient arrives critically ill and short of breath. He was discharged from the hospital 2 days ago to home. He woke up this morning very short of breath. He has not had any chest pain. No presyncopal symptoms. He has had chronic swelling in the right arm and both legs for several weeks. He has a dry cough but no fever. Paramedics reported room air saturation of 83%. He is in distress in tripod position. Duration 2 hours. No alleviating factors. No exacerbating factors. Symptoms are severe PFSH Past Medical History Cancer: Yes (PROSTATE) Cardiovascular Problems: Yes (, CAD) Chest Pain: No Diabetes: Yes (TYPE 2) Patient Takes Glucophage: No Gastrointestinal Disorders: No Glaucoma: No Hepatitis: No Hiatal Hernia: Yes Hypertension: Yes Respiratory: Yes (COPD, EMPHYSEMA) Integumentary: No Thyroid Disease: No Past Surgical History Other Surgery: Yes Social History Alcohol Use: No Tobacco Use: No Substance Use: No Allergies-Medications (Allergen,Severity, Reaction): Coded Allergies: [id number]-Gjn Reductase Inhibitor (Verified Adverse Reaction, Unknown, MUSCLE ACHES, 04/15/18) Reported Meds & Prescriptions Reported Meds & Active Scripts Active Lactinex (Lactobacillus Acidophilus) 1 Chew 1 Tab CHEW TID Megestrol (Megestrol Acetate) 40 Mg Tab 40 Mg PO Q12HR Protonix (Pantoprazole Sodium) 20 Mg Tab 20 Mg PO DAILY Marinol (Dronabinol) 2.5 Mg Cap 2.5 Mg PO BID@11,16 Norvasc (Amlodipine Besylate) 5 Mg Tab 5 Mg PO DAILY Metoprolol Tartrate 25 Mg Tab 25 Mg PO Q12HR Ferosul (Ferrous Sulfate) 325 Mg (65 Mg Iron) Tablet 325 Mg PO DAILY [Albuterol-Ipratropium Neb] 1 AMPULE Nebu 1 Ampule NEB Q2HR NEB PRN Oxycodone-Acetaminophen 5-325 (Oxycodone HCl/Acetaminophen) 5 Mg-325 Mg Tablet 1 Tab PO Q4H PRN Crestor (Rosuvastatin Calcium) 40 Mg Tab 40 Mg PO DAILY Thera M Plus (Multivitamins/Minerals Therapeutic) 1 Tab 1 Tab PO DAILY Dok (Docusate Sodium) 100 Mg Cap 100 Mg PO BID Plavix (Clopidogrel Bisulfate) 75 Mg Tab 75 Mg PO DAILY Reported [place]-3 Fish Oil/Vitamin (Fish Oil-Cholecalciferol) 1,000-1,000 Mg Cap 1 Cap PO DAILY Vitamin D3 (Cholecalciferol) 1,000 Unit Tab 2,000 Units PO DAILY Ventolin Hfa 18 GM Inh (Albuterol Sulfate) 90 Mcg/Act Aer 1 Puff INH Q4H PRN Symbicort Inh (Budesonide/Formoterol Fumarate) 160-4.5 Mcg/Act Aero 2 Puff INH Q12HR Januvia (Sitagliptin Phosphate) 100 Mg Tab 100 Mg PO DAILY Aspirin DR (Aspirin) 81 Mg Tabdr 81 Mg PO DAILY Review of Systems General / Constitutional: No: Fever Eyes: No: Visual changes HENT: No: Headaches Cardiovascular: Positive: Tachycardia, Edema, No: Chest Pain or Discomfort Respiratory: Positive: Cough, Shortness of Breath Gastrointestinal: No: Abdominal Pain Genitourinary: No: Dysuria Musculoskeletal: Positive: Edema, No: Pain Skin: No Rash Neurologic: No: Weakness Psychiatric: No: Depression Endocrine: No: Polydipsia Hematologic/Lymphatic: No: Easy Bruising Physical Exam Narrative GENERAL: Well-nourished, well-developed patient in respiratory distress. SKIN: Focused skin assessment reveals no rash and nodules. Skin is Warm and dry. Multiple abdominal bruises noted, likely from subcu Lovenox and recent hospital stay HEAD: Atraumatic. Normocephalic. EYES: Pupils equal and round. No scleral icterus. No injection or drainage. ENT: No nasal bleeding or discharge. Mucous membranes pink and moist. NECK: Trachea midline. No JVD. CARDIOVASCULAR: Regular rate and rhythm. No murmur appreciated. RESPIRATORY: Positive accessory muscle use. Diminished breath sounds throughout. Breath sounds equal bilaterally. GASTROINTESTINAL: Abdomen soft, non-tender, nondistended. Hepatic and splenic margins not palpable. MUSCULOSKELETAL: No obvious deformities. No clubbing. No cyanosis. There is pitting edema of both legs and right arm. No edema of left arm. NEUROLOGICAL: Awake and alert. No obvious cranial nerve deficits. Motor grossly within normal limits. Normal speech. PSYCHIATRIC: Appropriate mood and affect; insight and judgment normal. Data Data Last Documented VS Vital Signs Date Time Temp Pulse Resp B/P (MAP) Pulse Ox O2 Delivery O2 Flow Rate FiO2 04/15/18 13:00 82 18 137/61 (86) 100 Room Air 04/15/18 09:17 4.00 04/15/18 09:01 50 Orders Orders Complete Blood Count With Diff (04/15/18 08:21) Comprehensive Metabolic Panel (04/15/18 08:21) Ckmb (Isoenzyme) Profile (04/15/18 08:21) Troponin I (04/15/18 08:21) Iv Access Insert/Monitor (04/15/18 08:21) Electrocardiogram (04/15/18 08:21) Ecg Monitoring (04/15/18 08:21) Oximetry (04/15/18 08:21) Oxygen Administration (04/15/18 08:21) Chest, Single Ap (04/15/18 08:21) Sodium Chloride 0.9% Flush (Ns Flush) (04/15/18 08:30) Albuterol-Ipratropium Neb (Duoneb Neb) (04/15/18 08:30) Resp Bipap / Cpap Non Invas Vt (04/15/18 08:21) Comprehensive Metabolic Panel (04/16/18 06:00) Free Thyroxine (T4) (04/16/18 06:00) Hemoglobin (Hgb) A1c (04/16/18 06:00) Magnesium (Mg) (04/16/18 06:00) Phosphorus (Po4) (04/16/18 06:00) Thyroid Stimulating Hormone (04/16/18 06:00) Complete Blood Count With Diff (04/16/18 06:00) Place In Observation (04/15/18 ) Code Status (04/15/18 14:19) Vital Signs (Adult) Q4H (04/15/18 14:19) Activity Oob With Assistance (04/15/18 14:19) Bedside Glucose DAYANA.CSUGAR (04/15/18 14:19) Certified Professional Midwife / Telemetry .CONTINUOUS (04/15/18 14:19) Intake + Output DAYANA.QSHIFT (04/15/18 14:19) Diet Heart Healthy (04/15/18 Dinner) Sodium Chloride 0.9% Flush (Ns Flush) (04/15/18 14:30) Sodium Chloride 0.9% Flush (Ns Flush) (04/15/18 21:00) Acetaminophen (Tylenol) (04/15/18 14:30) Ondansetron Inj (Zofran Inj) (04/15/18 14:30) Metoclopramide Inj (Reglan Inj) (04/15/18 14:30) Creatine Kinase (Cpk) (04/15/18 14:19) Creatine Kinase (Cpk) (04/15/18 20:19) Creatine Kinase (Cpk) (04/16/18 02:19) Troponin I (04/15/18 14:19) Troponin I (04/15/18 20:19) Troponin I (04/16/18 02:19) Electrocardiogram (04/15/18 14:19) Electrocardiogram (04/15/18 20:19) Resp Oxygen Kavon C Titrat 1-4 L (04/15/18 ) Pt Request For Service (04/15/18 14:19) Ot Request For Service (04/15/18 14:19) Case Management Consult (04/15/18 14:19) Enoxaparin Inj (Lovenox Inj) (04/15/18 14:30) Scd Bilateral/Knee High DAYANA.BID (04/15/18 14:19) [place] Bilateral/Knee High DAYANA.QSHIFT (04/15/18 14:30) Acetaminophen (Tylenol) (04/15/18 14:30) Oxycodone-Acetamin 5-325 Mg (Percocet (04/15/18 14:30) Oxycodone-Acetamin 10-325 Mg (Percocet 1 (04/15/18 14:30) Morphine Inj (Morphine Inj) (04/15/18 14:30) Morphine Inj (Morphine Inj) (04/15/18 14:30) Morphine Inj (Morphine Inj) (04/15/18 14:30) Naloxone Inj (Narcan Inj) (04/15/18 14:30) Docusate Sodium-Senna (Padmini-Colace) (04/15/18 21:00) Magnesium Hydroxide Liq (Milk Of Magnesi (04/15/18 14:30) Sennosides (Senokot) (04/15/18 14:30) Bisacodyl Supp (Dulcolax Supp) (04/15/18 14:30) Lactulose Liq (Lactulose Liq) (04/15/18 14:30) Bedside Glucose DAYANA.CSUGAR (04/15/18 14:23) Blood Glucose Goal (Criteria) (04/15/18 14:23) Hypoglycemia 70 Mg/Dl Or < (04/15/18 14:23) Notify Dr: Other (04/15/18 14:23) Dextrose 50% In Nitza (Vial) Inj (D50w (Vi (04/15/18 14:30) Glucagon Inj (Glucagon Inj) (04/15/18 14:30) Insulin Aspart Supplemtl Scale (Novolog (04/15/18 17:00) Amlodipine (Norvasc) (04/16/18 09:00) Aspirin Ec (Ecotrin Ec) (04/16/18 09:00) Budeson-Formot 160-4.5 Mcg Inh (Symbicor (04/15/18 21:00) Cholecalciferol (Vitamin D3) (04/16/18 09:00) Clopidogrel (Plavix) (04/16/18 09:00) Docusate Sodium (Colace) (04/15/18 21:00) Dronabinol (Marinol) (04/15/18 16:00) Ferrous Sulfate (Ferrous Sulfate) (04/16/18 09:00) Megestrol (Megace) (04/15/18 21:00) Metoprolol Tartrate (Lopressor) (04/15/18 21:00) Multivitamins-Minerals Therap (Theragran (04/16/18 09:00) Pantoprazole (Protonix) (04/16/18 09:00) Sitagliptin (Januvia) (04/16/18 09:00) (Nf) Fish Oil-Cholecalciferol ([place]-3 F (04/16/18 09:00) (Nf) Lactobacillus Acidophilus (Lactinex (04/15/18 18:00) (Nf) Rosuvastatin (Crestor) (04/16/18 09:00) Albuterol-Ipratropium Neb (Duoneb Neb) (04/15/18 16:00) Albuterol-Ipratropium Neb (Duoneb Neb) (04/15/18 14:30) Guaifenesin Er (Mucinex Er) (04/15/18 21:00) Resp Incentive Spirometry (04/15/18 ) Labs Laboratory Tests Test 04/15/18 08:20 White Blood Count 13.0 TH/MM3 Red Blood Count 3.48 MIL/MM3 Hemoglobin 10.4 GM/DL Hematocrit 31.4 % Mean Corpuscular Volume 90.4 FL Mean Corpuscular Hemoglobin 29.8 PG Mean Corpuscular Hemoglobin Concent 33.0 % Red Cell Distribution Width 18.1 % Platelet Count 193 TH/MM3 Mean Platelet Volume 9.8 FL Neutrophils (%) (Auto) 57.0 % Lymphocytes (%) (Auto) 29.9 % Monocytes (%) (Auto) 5.4 % Eosinophils (%) (Auto) 7.2 % Basophils (%) (Auto) 0.5 % Neutrophils # (Auto) 7.4 TH/MM3 Lymphocytes # (Auto) 3.9 TH/MM3 Monocytes # (Auto) 0.7 TH/MM3 Eosinophils # (Auto) 0.9 TH/MM3 Basophils # (Auto) 0.1 TH/MM3 CBC Comment DIFF FINAL Differential Comment Blood Urea Nitrogen 23 MG/DL Creatinine 1.91 MG/DL Random Glucose 150 MG/DL Total Protein 6.2 GM/DL Albumin 2.5 GM/DL Calcium Level 9.1 MG/DL Alkaline Phosphatase 205 U/L Aspartate Amino Transf (AST/SGOT) 27 U/L Alanine Aminotransferase (ALT/SGPT) 49 U/L Total Bilirubin 0.5 MG/DL Sodium Level 146 MEQ/L Potassium Level 4.4 MEQ/L Chloride Level 114 MEQ/L Carbon Dioxide Level 20.9 MEQ/L Anion Gap 11 MEQ/L Estimat Glomerular Filtration Rate 34 ML/MIN Total Creatine Kinase 45 U/L Troponin I 0.25 NG/ML [facility] Medical Decision Making Medical Screen Exam Complete: Yes Emergency Medical Condition: Yes Medical Record Reviewed: Yes Differential Diagnosis Pulmonary edema, pneumonia, COPD, pneumothorax Narrative Course I have reviewed the patient's electronic medical record. Reviewed his discharge summary from 2 days ago. He had an extensive hospitalization and recent aortic valve replacement and renal failure 2 IVs placed. Patient arrives critical illness and distress on BiPAP I reviewed his EKG which shows sinus rhythm with no ST elevation I have ordered extensive workup BiPAP is relieving his work of breathing for the time being Patient reports his right arm swelling is chronic and he has had ultrasound which rule out DVT I gave multiple nebulizer treatments I reviewed his chest x-ray which shows improved aeration from prior Troponin is 0.25, down from prior of 0.85 which was 3 weeks ago CK is normal Patient arrived critically ill but gradually improved over the 6 hours have been watching him Etiology of his severe distress is unclear. He is gradually improved. He has been on room air now for 1 full hour with saturation of 100% I spoke with the hospitalist who knows this patient. He was under the impression the patient went to rehab on oxygen but it turns out the patient went home with no oxygen. Circumstances surrounding that are unclear. I reviewed with [facility] Dr. Harding and Dr. zuleta. They recommended telemetry observation given his severe distress and recent cardiac procedure Critical Care Narrative Aggregate critical care time was 80 minutes. Time to perform other separately billable procedures was not included in the critical care time. My time did not include minutes spent treating any other patients simultaneously or on activities that did not directly contribute to the patient's treatment. The services I provided to this patient were to treat and/or prevent clinically significant deterioration that could result in: Cardiopulmonary arrest, respiratory collapse, hypoxemic brain injury I provided critical care services requiring my management, as noted below: Chart data review, documentation time, medication orders and management, vital sign assessments/reviewing monitor data, ordering and reviewing lab tests, ordering and interpreting/reviewing x-rays and diagnostic studies, care of the patient and discussion of the patient with the admitting physicians. Diagnosis Primary Impression: Shortness of breath Additional Impressions: S/P TAVR (transcatheter aortic valve replacement) CAD (coronary artery disease) Qualified Codes: I25.10 - Atherosclerotic heart disease of [place] coronary artery without angina pectoris Admitting Information Admitting Physician Requests: Observation Reed Baker MD Apr 15, 2018 08:33
[2018-04-15 08:44] LABS: AUTOMATED NEUTROPHIL # 7.4 TH/MM3 (1.8-7.7); BASOPHIL # 0.1 TH/MM3 (0-0.2); BASOPHIL % 0.5 % (0.0-2.0); EOSINOPHIL # 0.9 TH/MM3 (0-0.4); EOSINOPHIL % 7.2 % (0.0-4.0); HEMATOCRIT 31.4 % (39.0-51.0); HEMOGLOBIN 10.4 GM/DL (13.0-17.0); LYMPH % 29.9 % (9.0-44.0); LYMPHOCYTE # 3.9 TH/MM3 (1.0-4.8); MEAN CELL VOLUME 90.4 FL (80.0-100.0); MEAN CORPUSCULAR HEMOGLOBIN 29.8 PG (27.0-34.0); MEAN PLATELET VOLUME 9.8 FL (7.0-11.0); MONO % 5.4 % (0.0-8.0); MONOCYTE # 0.7 TH/MM3 (0-0.9); PLATELET COUNT 193 TH/MM3 (150-450); RED BLOOD COUNT 3.48 MIL/MM3 (4.50-5.90); RED CELL DISTRIBUTION WIDTH 18.1 % (11.6-17.2)
--- NOTE | 2018-04-15 08:52 | RADRPT ---
EXAM DATE: 04/15/2018 8:50 AM EDT AGE/SEX: 77 years / Male INDICATIONS: Short of breath. CLINICAL DATA: This is the patient's initial encounter. Patient reports that signs and symptoms have been present for 1 day and indicates a pain score of 0/10. MEDICAL/SURGICAL HISTORY: None. CABG. COMPARISON: [facility] [place], CHEST SINGLE AP, 04/11/2018. . FINDINGS: There is mild pleural-parenchymal opacity at the left lung base, similar to previous exam. There has been slight clearance of right lung perihilar infiltrate. Cardiac contours are grossly stable. Sterno ben wires are present. CONCLUSION: Improved aeration. Mild persistent pleural-parenchymal opacity the left lung base. Electronically signed by: Félix Guido MD 04/15/2018 8:51 AM EDT
[2018-04-15 09:01] LABS: ALBUMIN 2.5 GM/DL (3.4-5.0); ALT (GPT) 49 U/L (12-78); AST (GOT) 27 U/L (15-37); BICARBONATE 20.9 MEQ/L (21.0-32.0); BLOOD UREA NITROGEN 23 MG/DL (7-18); CALCIUM 9.1 MG/DL (8.5-10.1); CHLORIDE 114 MEQ/L (98-107); CREATININE 1.91 MG/DL (0.60-1.30); GLOMERULAR FILTRATION RATE 34 ML/MIN (>89); GLUCOSE,RANDOM 150 MG/DL (74-106); SODIUM (NA) 146 MEQ/L (136-145)
[2018-04-15 09:06] LABS: ALKALINE PHOSPHATASE 205 U/L (45-117); TOTAL BILIRUBIN ADULT 0.5 MG/DL (0.2-1.0); TOTAL PROTEIN 6.2 GM/DL (6.4-8.2); TROPONIN I 0.25 NG/ML (0.02-0.05)
[2018-04-15] MEDS ORDERED: SENNOSIDES 8.6 MG TAB PO PRN (14:30)
[2018-04-15] MEDS ORDERED: DEXTROSE 50% IN WATER 50 ML VIAL(D50) IV PUSH PRN (14:30)
[2018-04-15] MEDS ORDERED: oxyCODONE/ACETAMINOPHEN 5 MG/325 MG TAB PO PRN (14:30)
[2018-04-15] MEDS ORDERED: NALOXONE HCL 0.4 MG/ML AMP IV PUSH PRN (14:30)
[2018-04-15] MEDS ORDERED: METOCLOPRAMIDE HCL 10 MG/2 ML VIAL IV PUSH PRN (14:30)
[2018-04-15] MEDS ORDERED: LACTULOSE SYRUP 20 GM/30 ML CUP PO PRN (14:30)
[2018-04-15] MEDS ORDERED: MAGNESIUM HYDROXIDE SUSP 30 ML CUP PO PRN (14:30)
[2018-04-15] MEDS ORDERED: ACETAMINOPHEN 325 MG TAB PO PRN ×2 (14:30)
[2018-04-15] MEDS ORDERED: oxyCODONE/ACETAMINOPHEN 10 MG/325 MG TAB PO PRN (14:30)
[2018-04-15] MEDS ORDERED: ONDANSETRON ODT 4 MG TAB PO PRN (14:30)
[2018-04-15] MEDS ORDERED: GLUCAGON 1 MG/ML VIAL OTHER PRN (14:30)
[2018-04-15] MEDS ORDERED: BISACODYL 10 MG SUPP RECTAL PRN (14:30)
[2018-04-15] MEDS ORDERED: MORPHINE SULFATE 4 MG/ML INJ IV PUSH PRN ×3 (14:30)
[2018-04-15] MEDS ORDERED: SODIUM CHLORIDE 0.9% FLUSH 10 ML FLUSH IV FLUSH PRN (14:30)
[2018-04-15] MEDS: RESP: ALBUTEROL 2.5 MG/IPRATROPIUM 0.5 MG NEB (SCH) NEB ×2 (15:43→22:00)
[2018-04-15] MEDS: ENOXAPARIN SODIUM 30 MG/0.3 ML SYRINGE SQ SCH (16:43)
--- NOTE | 2018-04-15 17:08 | HHI.HP ---
[facility] Kalin Palma MD Admission Diagnosis short of breath,recent TAVR Diagnoses: Chief Complaint: Increasing shortness of breath and respiratory distress Travel History International Travel<30 Days: No Contact w/Intl Traveler <30 Da: No Traveled to Known Affected Are: No History of Present Illness Patient is a 77-year-old gentleman who was recently discharged from the hospital 2 days ago. Was supposed to go to a longterm facility. I am not sure if he went to the longterm facility. Or decided to just go home. He may have visited the longterm facility for a short period of time and then decided to leave patient obviously when he went home was not set up for oxygen since he was going to the longterm facility therefore when patient was short of breath he has no home oxygen therefore he presented to the hospital with O2 sat in the 83% percentage and was on BiPAP Patient will be admitted. Will consult case management will consult physical therapy will consult cardiology Review of Systems Constitutional: DENIES: Diaphoretic episodes, Fatigue, Fever, Weight gain, Weight loss, Chills, Dizziness, Change in appetite, Night Sweats Endocrine: DENIES: Heat/cold intolerance, Polydipsia, Polyuria, Polyphagia Eyes: DENIES: Blurred vision, Diplopia, Eye inflammation, Eye pain, Vision loss , Photosensitivity, Double Vision Ears, nose, mouth, throat: DENIES: Tinnitus, Hearing loss, Vertigo, Nasal discharge, Oral lesions, Throat pain, Hoarseness, Ear Pain, Running Nose, Epistaxis, Sinus Pain, Toothache, Odynophagia Respiratory: COMPLAINS OF: Cough, Shortness of breath, DENIES: Apneas, Snoring , Wheezing, Hemoptysis, Sputum production Cardiovascular: COMPLAINS OF: Dyspnea on Exertion, Lower Extremity Edema, DENIES: Chest pain, Palpitations, Syncope, PND, Orthopnea, Claudication Gastrointestinal: DENIES: Abdominal pain, Black stools, Bloody stools, Constipation, Diarrhea Genitourinary: DENIES: Sexual dysfunction, Urinary frequency, Urinary incontinence, Urgency, Hematuria Musculoskeletal: DENIES: Joint pain, Muscle aches, Stiffness, Joint Swelling, Back pain, Neck pain Integumentary: DENIES: Abnormal pigmentation, Nail changes, Pruritus, Rash Hematologic/lymphatic: DENIES: Bruising, Lymphadenopathy Immunologic/allergic: DENIES: Eczema, Urticaria Neurologic: COMPLAINS OF: Abnormal gait, Localized weakness, Poor Balance, DENIES: Headache, Paresthesias, Seizures, Speech Problems, Tremor Psychiatric: DENIES: Anxiety, Confusion, Mood changes, Depression, Hallucinations, Agitation, Suicidal Ideation, Homicidal Ideation, Delusions Except as stated in HPI: all other systems reviewed are Neg Past Family Social History Past Medical History Prostate cancer Aortic stenosis status post TAVR Chronic kidney disease stage III Coronary artery disease Diabetes mellitus type 2 Hiatal hernia Hypertension COPD and emphysema has no oxygen at home because he was going to [facility] Claudication History of acute left MCA stroke status post TAVR Hypertension . ischemic cardiomyopathy Past Surgical History TAVR Sternotomy Reported Medications Reported Meds & Active Scripts Active Lactinex (Lactobacillus Acidophilus) 1 Chew 1 Tab CHEW TID Megestrol (Megestrol Acetate) 40 Mg Tab 40 Mg PO Q12HR Protonix (Pantoprazole Sodium) 20 Mg Tab 20 Mg PO DAILY Marinol (Dronabinol) 2.5 Mg Cap 2.5 Mg PO BID@11,16 Norvasc (Amlodipine Besylate) 5 Mg Tab 5 Mg PO DAILY Metoprolol Tartrate 25 Mg Tab 25 Mg PO Q12HR Ferosul (Ferrous Sulfate) 325 Mg (65 Mg Iron) Tablet 325 Mg PO DAILY [Albuterol-Ipratropium Neb] 1 AMPULE Nebu 1 Ampule NEB Q2HR NEB PRN Oxycodone-Acetaminophen 5-325 (Oxycodone HCl/Acetaminophen) 5 Mg-325 Mg Tablet 1 Tab PO Q4H PRN Crestor (Rosuvastatin Calcium) 40 Mg Tab 40 Mg PO DAILY Thera M Plus (Multivitamins/Minerals Therapeutic) 1 Tab 1 Tab PO DAILY Dok (Docusate Sodium) 100 Mg Cap 100 Mg PO BID Plavix (Clopidogrel Bisulfate) 75 Mg Tab 75 Mg PO DAILY Reported Voss-3 Fish Oil/Vitamin (Fish Oil-Cholecalciferol) 1,000-1,000 Mg Cap 1 Cap PO DAILY Vitamin D3 (Cholecalciferol) 1,000 Unit Tab 2,000 Units PO DAILY Ventolin Hfa 18 GM Inh (Albuterol Sulfate) 90 Mcg/Act Aer 1 Puff INH Q4H PRN Symbicort Inh (Budesonide/Formoterol Fumarate) 160-4.5 Mcg/Act Aero 2 Puff INH Q12HR Januvia (Sitagliptin Phosphate) 100 Mg Tab 100 Mg PO DAILY Aspirin DR (Aspirin) 81 Mg Tabdr 81 Mg PO DAILY Allergies: Coded Allergies: [id number]-[id number]-[id number] Reductase Inhibitor (Verified Adverse Reaction, Unknown, MUSCLE ACHES, 04/15/18) Active Ordered Medications Laboratory Tests Test 04/15/18 08:20 04/15/18 15:30 White Blood Count 13.0 TH/MM3 Red Blood Count 3.48 MIL/MM3 Hemoglobin 10.4 GM/DL Hematocrit 31.4 % Mean Corpuscular Volume 90.4 FL Mean Corpuscular Hemoglobin 29.8 PG Mean Corpuscular Hemoglobin Concent 33.0 % Red Cell Distribution Width 18.1 % Platelet Count 193 TH/MM3 Mean Platelet Volume 9.8 FL Neutrophils (%) (Auto) 57.0 % Lymphocytes (%) (Auto) 29.9 % Monocytes (%) (Auto) 5.4 % Eosinophils (%) (Auto) 7.2 % Basophils (%) (Auto) 0.5 % Neutrophils # (Auto) 7.4 TH/MM3 Lymphocytes # (Auto) 3.9 TH/MM3 Monocytes # (Auto) 0.7 TH/MM3 Eosinophils # (Auto) 0.9 TH/MM3 Basophils # (Auto) 0.1 TH/MM3 CBC Comment DIFF FINAL Differential Comment Blood Urea Nitrogen 23 MG/DL Creatinine 1.91 MG/DL Random Glucose 150 MG/DL Total Protein 6.2 GM/DL Albumin 2.5 GM/DL Calcium Level 9.1 MG/DL Alkaline Phosphatase 205 U/L Aspartate Amino Transf (AST/SGOT) 27 U/L Alanine Aminotransferase (ALT/SGPT) 49 U/L Total Bilirubin 0.5 MG/DL Sodium Level 146 MEQ/L Potassium Level 4.4 MEQ/L Chloride Level 114 MEQ/L Carbon Dioxide Level 20.9 MEQ/L Anion Gap 11 MEQ/L Estimat Glomerular Filtration Rate 34 ML/MIN Total Creatine Kinase 45 U/L Troponin I 0.25 NG/ML Family History Hypertension Social History 40+ pack year history quit 10 years ago Was not on oxygen at home Physical Exam Vital Signs Vital Signs Date Time Temp Pulse Resp B/P (MAP) Pulse Ox O2 Delivery O2 Flow Rate FiO2 04/15/18 15:30 77 18 148/63 (91) 100 Room Air 04/15/18 13:00 82 18 137/61 (86) 100 Room Air 04/15/18 11:00 71 18 125/57 (79) 99 Room Air 04/15/18 10:00 86 18 115/56 (75) 99 Room Air 04/15/18 09:49 100 Room Air 04/15/18 09:17 97 Nasal Cannula 4.00 04/15/18 09:01 100 CPAP 50 04/15/18 08:51 100 CPAP 60 04/15/18 08:51 23 100 CPAP 60 04/15/18 08:31 99 50 04/15/18 08:30 82 130/58 (82) 04/15/18 08:12 100 CPAP 60 04/15/18 08:06 99 23 145/69 (94) 100 Physical Exam GENERAL: This is a well-nourished, well-developed patient, in no apparent distress. SKIN: No rashes, ecchymoses or lesions. Cool and dry. HEAD: Atraumatic. Normocephalic. No temporal or scalp tenderness. Right facial droop and expressive aphasia EYES: Pupils equal round and reactive. Extraocular motions intact. No scleral icterus. No injection or drainage. ENT: Nose without bleeding, purulent drainage or septal hematoma. Throat without erythema, tonsillar hypertrophy or exudate. Uvula midline. Airway patent. NECK: Trachea midline. No JVD or lymphadenopathy. Supple, nontender, no meningeal signs. CARDIOVASCULAR: Regular rate and rhythm without murmurs, gallops, or rubs. RESPIRATORY: Clear to auscultation. Breath sounds equal bilaterally. No wheezes , rales, or rhonchi. GASTROINTESTINAL: Abdomen soft, non-tender, nondistended. No hepato-splenomegaly , or palpable masses. No guarding. MUSCULOSKELETAL: Extremities without clubbing, cyanosis, +2 bilateral lower extremity edema--. No joint tenderness, effusion, or edema noted. No calf tenderness. Negative Homans sign bilaterally. NEUROLOGICAL: Awake and alert. Cranial nerves II through XII intact. Motor and sensory grossly within normal limits. Five out of 5 muscle strength in all muscle groups. ABNormal speech. A fascia Laboratory Laboratory Tests Test 6/6/18 08:20 04/15/18 15:30 White Blood Count 13.0 Red Blood Count 3.48 Hemoglobin 10.4 Hematocrit 31.4 Mean Corpuscular Volume 90.4 Mean Corpuscular Hemoglobin 29.8 Mean Corpuscular Hemoglobin Concent 33.0 Red Cell Distribution Width 18.1 Platelet Count 193 Mean Platelet Volume 9.8 Neutrophils (%) (Auto) 57.0 Lymphocytes (%) (Auto) 29.9 Monocytes (%) (Auto) 5.4 Eosinophils (%) (Auto) 7.2 Basophils (%) (Auto) 0.5 Neutrophils # (Auto) 7.4 Lymphocytes # (Auto) 3.9 Monocytes # (Auto) 0.7 Eosinophils # (Auto) 0.9 Basophils # (Auto) 0.1 CBC Comment DIFF FINAL Differential Comment Blood Urea Nitrogen 23 Creatinine 1.91 Random Glucose 150 Total Protein 6.2 Albumin 2.5 Calcium Level 9.1 Alkaline Phosphatase 205 Aspartate Amino Transf (AST/SGOT) 27 Alanine Aminotransferase (ALT/SGPT) 49 Total Bilirubin 0.5 Sodium Level 146 Potassium Level 4.4 Chloride Level 114 Carbon Dioxide Level 20.9 Anion Gap 11 Estimat Glomerular Filtration Rate 34 Total Creatine Kinase 45 Troponin I 0.25 Result Diagram: 04/15/18 0804/15/18819 Imaging Last Impressions Chest X-Ray 04/15/18820 Signed Impressions: CONCLUSION: Improved aeration. Mild persistent pleural-parenchymal opacity the left lung ba se. Caprini VTE Risk Assessment Caprini VTE Risk Assessment: Mod/High Risk (score >= 2) Caprini Risk Assessment Model Point Value = 1 Point Value = 2 Point Value = 3 Point Value = 5 Age 41-60 Minor surgery BMI > 25 kg/m2 Swollen legs Varicose veins or History of unexplained or recurrent spontaneous Oral contraceptives or hormone replacement Sepsis (< 1 month) Serious lung disease, including pneumonia (< 1 month) Abnormal pulmonary function Acute myocardial infarction Congestive heart failure (< 1 month) History of inflammatory bowel disease Medical patient at bed rest Age 61-74 Arthroscopic surgery Major open surgery (> 45 min) Laparoscopic surgery (> 45 min) Malignancy Confined to bed (> 72 hours) Immobilizing plaster cast Central venous access Age >= 75 History of VTE Family history of VTE Factor V Leiden Prothrombin [id number] Lupus anticoagulant Anticardiolipin antibodies Elevated serum homocysteine Heparin-induced thrombocytopenia Other congenital or acquired thrombophilia Stroke (< 1 month) Elective arthroplasty Hip, pelvis, or leg fracture Acute spinal cord injury (< 1 month) Prophylaxis Regimen Total Risk Factor Score Risk Level Prophylaxis Regimen 0-1 Low Early ambulation 2 Moderate Order ONE of the following: *Sequential Compression Device (SCD) *Heparin 5000 units SQ BID 3-4 Higher Order ONE of the following medications: *Heparin 5000 units SQ TID *Enoxaparin/Lovenox 40 mg SQ daily (WT < 150 kg, CrCl > 30 mL/min) *Enoxaparin/Lovenox 30 mg SQ daily (WT < 150 kg, CrCl > 10-29 mL/min) *Enoxaparin/Lovenox 30 mg SQ BID (WT < 150 kg, CrCl > 30 mL/min) AND/OR *Sequential Compression Device (SCD) 5 or more Highest Order ONE of the following medications: *Heparin 5000 units SQ TID (Preferred with Epidurals) *Enoxaparin/Lovenox 40 mg SQ daily (WT < 150 kg, CrCl > 30 mL/min) *Enoxaparin/Lovenox 30 mg SQ daily (WT < 150 kg, CrCl > 10-29 mL/min) *Enoxaparin/Lovenox 30 mg SQ BID (WT < 150 kg, CrCl > 30 mL/min) AND *Sequential Compression Device (SCD) Assessment and Plan Problem List: (1) S/P TAVR (transcatheter aortic valve replacement) ICD Code: Z95.2 - Presence of prosthetic heart valve (2) CAD (coronary artery disease) ICD Code: I25.10 - Atherosclerotic heart disease of [place] coronary artery without angina pectoris (3) Shortness of breath ICD Code: R06.02 - Shortness of breath Status: Acute (4) Diastolic CHF ICD Code: I50.30 - Unspecified diastolic (congestive) heart failure (5) Acute on chronic kidney failure ICD Code: N17.9 - Acute kidney failure, unspecified; N18.9 - Chronic kidney disease, unspecified (6) COPD (chronic obstructive pulmonary disease) ICD Code: J44.9 - Chronic obstructive pulmonary disease, unspecified (7) CVA (cerebral vascular accident) ICD Code: I63.9 - Cerebral infarction, unspecified (8) Median sternotomy Assessment and Plan Acute respiratory failure probably combination of COPD and CHF since patient left the longterm facility AGAINST MEDICAL ADVICE probably and never had oxygen prescribed for him at home Add duo nebs and Mucinex We will add some steroids to improve the breathing Will need a walk test We will trend troponins to make sure this is noncardiac due to his severe aortic stenosis with history of a T AVR History of left MCA stroke status post [place] continue on current anticoagulation Acute on chronic kidney disease improved COPD -will need nebulizers and pulmonary toilet and oxygen -will more than likely need oxygen at home will get a walk test Add steroids-add Mucinex-and duo nebs-and oxygen-and incentive spirometry Hypertension home medications as able Hyperlipidemia not able to do statins Diabetes continue on Accu-Cheks and sliding scale coverage with low-dose NovoLog GERD continue on GI prophylaxis Coronary artery disease aspirin and Plavix Lovenox as needed for DVT prophylaxis continue GI prophylaxis Code Status Full code Discussed Condition With RN and patient and ER physician and pillowcase turner Physician Certification 2 Midnight Certification Type: Admission for Inpatient Services Order for Inpatient Services The services are ordered in accordance with Medicare regulations or non- Medicare payer requirements, as applicable. In the case of services not specified as inpatient-only, they are appropriately provided as inpatient services in accordance with the 2-midnight benchmark. Estimated LOS (days): 2 days is the estimated time the patient will need to remain in the hospital, assuming treatment plan goals are met and no additional complications. Post-Hospital Plan: SNF Problem Qualifiers (1) CAD (coronary artery disease): Qualified Codes: I25.10 - Atherosclerotic heart disease of [place] coronary artery without angina pectoris Stanislaw Thompson DO Apr 15, 2018 17:08
[2018-04-15 17:29] LABS: TROPONIN I 0.22 NG/ML (0.02-0.05)
[2018-04-15] MEDS: INSULIN ASPART SUPPLEMENTAL SCALE SQ SCH ×2 (17:41→20:44)
[2018-04-15] MEDS: LACTOBACILLUS ACIDOPHILUS TAB PO SCH (17:41)
[2018-04-15] MEDS: DRONABINOL 2.5 MG CAP PO SCH (17:41)
--- NOTE | 2018-04-15 18:26 | EKG ---
Date Performed: 04/15/2018 Time Performed: 07:14:13 PTAGE: 77 years EKG: SINUS TACHYCARDIA NONSPECIFIC T-WAVE ABNORMALITY ABNORMAL ECG PREVIOUS TRACING : 03/13/2018 17.39 Compared to previous tracing, LBBB no longer present DOCTOR: Katlyn Stone Interpretating Date/Time 04/15/2018 18:24:59
[2018-04-15] MEDS: DOCUSATE SODIUM 50 MG/SENNA 8.6 MG TAB PO SCH (20:44)
[2018-04-15] MEDS: guaiFENesin E.R. 600 MG TAB PO SCH (20:44)
[2018-04-15] MEDS: predniSONE 20 MG TAB PO SCH (20:44)
[2018-04-15] MEDS: DOCUSATE SODIUM 100 MG CAP PO SCH ×3 (20:44→21:00)
[2018-04-15] MEDS: METOPROLOL TARTRATE 25 MG TAB PO SCH (20:44)
[2018-04-15] MEDS: SODIUM CHLORIDE 0.9% FLUSH 10 ML FLUSH IV FLUSH SCH (20:44)
[2018-04-15] MEDS: MEGESTROL ACETATE 40 MG TAB PO SCH (22:11)
[2018-04-15] MEDS: BUDESONIDE-FORMOTEROL 160/4.5 MCG INHALER INH SCH (22:11)
[2018-04-15 22:14] LABS: TROPONIN I 0.18 NG/ML (0.02-0.05)
[2018-04-16] VITALS (28 sets, daily range): BP systolic 129–150; BP diastolic 65–80; PULSE 68–97; RESP 18–22; TEMP 97.3–98.4; O2SAT 98–100
[2018-04-16] MEDS: RESP: ALBUTEROL 2.5 MG/IPRATROPIUM 0.5 MG NEB (SCH) NEB ×4 (02:30→20:15)
[2018-04-16 03:10] LABS: AUTOMATED NEUTROPHIL # 5.3 TH/MM3 (1.8-7.7); BASOPHIL % 0.5 % (0.0-2.0); EOSINOPHIL # 0.1 TH/MM3 (0-0.4); EOSINOPHIL % 1.9 % (0.0-4.0); HEMATOCRIT 26.5 % (39.0-51.0); HEMOGLOBIN 8.9 GM/DL (13.0-17.0); LYMPH % 11.4 % (9.0-44.0); LYMPHOCYTE # 0.7 TH/MM3 (1.0-4.8); MEAN CELL VOLUME 89.4 FL (80.0-100.0); MEAN CORPUSCULAR HEMOGLOBIN 30.1 PG (27.0-34.0); MEAN CORPUSCULAR HGB CONC 33.7 % (32.0-36.0); MEAN PLATELET VOLUME 10.2 FL (7.0-11.0); MONO % 3.5 % (0.0-8.0); MONOCYTE # 0.2 TH/MM3 (0-0.9); NEUT % 82.7 % (16.0-70.0); PLATELET COUNT 119 TH/MM3 (150-450); RED BLOOD COUNT 2.96 MIL/MM3 (4.50-5.90); RED CELL DISTRIBUTION WIDTH 17.5 % (11.6-17.2); WHITE BLOOD COUNT 6.4 TH/MM3 (4.0-11.0)
[2018-04-16 03:37] LABS: ALBUMIN 2.1 GM/DL (3.4-5.0); ALKALINE PHOSPHATASE 174 U/L (45-117); ALT (GPT) 39 U/L (12-78); AST (GOT) 21 U/L (15-37); BICARBONATE 24.2 MEQ/L (21.0-32.0); BLOOD UREA NITROGEN 24 MG/DL (7-18); CALCIUM 8.1 MG/DL (8.5-10.1); CHLORIDE 113 MEQ/L (98-107); CREATININE 1.68 MG/DL (0.60-1.30); FREE T4 1.24 NG/DL (0.76-1.46); GLOMERULAR FILTRATION RATE 40 ML/MIN (>89); GLUCOSE,RANDOM 154 MG/DL (74-106); MAGNESIUM 1.7 MG/DL (1.5-2.5); PHOSPHORUS 2.8 MG/DL (2.5-4.9); SODIUM (NA) 146 MEQ/L (136-145); TOTAL BILIRUBIN ADULT 0.4 MG/DL (0.2-1.0); TOTAL PROTEIN 5.3 GM/DL (6.4-8.2); TROPONIN I 0.13 NG/ML (0.02-0.05)
[2018-04-16] MEDS: RESP: ALBUTEROL 2.5 MG/IPRATROPIUM 0.5 MG NEB (PRN) NEB (05:08)
[2018-04-16] MEDS: INSULIN ASPART SUPPLEMENTAL SCALE SQ SCH ×4 (08:00→21:00)
[2018-04-16] MEDS ORDERED: CHOLECALCIFEROL (VIT D3) 1000 UNIT TAB PO SCH (09:00)
[2018-04-16] MEDS: MEGESTROL ACETATE 40 MG TAB PO SCH ×2 (09:00→22:25)
[2018-04-16] MEDS: BUDESONIDE-FORMOTEROL 160/4.5 MCG INHALER INH SCH ×2 (09:02→22:25)
[2018-04-16] MEDS: CHOLECALCIFEROL (VIT D3) 1000 UNIT TAB PO SCH (09:03)
[2018-04-16] MEDS: METOPROLOL TARTRATE 25 MG TAB PO SCH ×2 (09:03→22:26)
[2018-04-16] MEDS: CLOPIDOGREL 75 MG TAB PO SCH (09:03)
[2018-04-16] MEDS: ASPIRIN EC 81 MG TABEC PO SCH (09:04)
[2018-04-16] MEDS: predniSONE 20 MG TAB PO SCH ×2 (09:04→22:26)
[2018-04-16] MEDS: MULTIVITAMINS/MINERALS THERAPEUTIC TAB PO SCH (09:04)
[2018-04-16] MEDS: amLODIPine BESYLATE 5 MG TAB PO SCH (09:04)
[2018-04-16] MEDS: DOCUSATE SODIUM 100 MG CAP PO SCH ×2 (09:04→22:27)
[2018-04-16] MEDS: ATORVASTATIN 80 MG TAB PO SCH (09:04)
[2018-04-16] MEDS: DOCUSATE SODIUM 50 MG/SENNA 8.6 MG TAB PO SCH ×2 (09:04→22:27)
[2018-04-16] MEDS: LACTOBACILLUS ACIDOPHILUS TAB PO SCH ×3 (09:04→16:59)
[2018-04-16] MEDS: SODIUM CHLORIDE 0.9% FLUSH 10 ML FLUSH IV FLUSH SCH ×2 (09:04→21:00)
[2018-04-16] MEDS: FERROUS SULFATE 325 MG (65 MG ELEMENTAL IRON) TAB PO SCH (09:04)
[2018-04-16] MEDS: PANTOPRAZOLE SOD 20 MG DELAYED RELEASE TAB PO SCH (09:04)
[2018-04-16] MEDS: guaiFENesin E.R. 600 MG TAB PO SCH ×2 (09:05→22:26)
[2018-04-16] MEDS: DRONABINOL 2.5 MG CAP PO SCH ×2 (11:07→15:34)
[2018-04-16] MEDS: ENOXAPARIN SODIUM 30 MG/0.3 ML SYRINGE SQ SCH (15:35)
[2018-04-16 16:52] LABS: HEMOGLOBIN A1C 6.2 % (4.3-6.0)
--- NOTE | 2018-04-16 19:13 | HHI.PR ---
Subjective Remarks Follow up for respiratory failure in a patient with recent TAVR and and post TAVR recent stroke. Mr. Chan is resting well in bed. However, he complains of significant dyspnea if he tries to even get out of the bed. The severe dyspnea started only 2-3 days ago. He denies any chest pain, cough, fever, chills. Objective Vitals Vital Signs Date Time Temp Pulse Resp B/P (MAP) Pulse Ox O2 Delivery O2 Flow Rate FiO2 04/16/18 18:07 76 04/16/18 17:14 88 04/16/18 16:01 71 04/16/18 15:12 74 04/16/18 15:12 98.0 78 18 129/67 (87) 99 04/16/18 15:12 99 Room Air 04/16/18 14:02 81 04/16/18 13:10 94 04/16/18 12:02 85 04/16/18 11:36 79 04/16/18 11:36 98.2 97 18 150/79 (102) 100 04/16/18 11:36 100 Room Air 04/16/18 10:00 84 04/16/18 09:58 84 04/16/18 09:29 98 04/16/18 08:00 100 Room Air 04/16/18 08:00 98.0 92 20 148/80 (102) 100 04/16/18 08:00 74 04/16/18 06:00 78 04/16/18 05:11 100 04/16/18 05:00 68 04/16/18 04:00 78 04/16/18 03:52 97.3 76 20 133/66 (88) 98 04/16/18 03:50 98 Room Air 04/16/18 03:00 74 04/16/18 02:00 80 04/16/18 01:00 74 04/16/18 00:00 80 04/15/18 23:35 97.8 80 18 136/58 (84) 98 04/15/18 23:35 98 Room Air 04/15/18 23:00 77 04/15/18 22:00 82 04/15/18 21:00 84 04/15/18 20:19 100 Room Air 04/15/18 20:19 98.0 85 20 128/63 (84) 100 04/15/18 20:00 82 04/15/18 19:00 93 I/O 04/15/18 04/15/18 04/15/18 04/16/18 04/16/18 04/16/18 07:00 15:00 23:00 07:00 15:00 23:00 Intake Total 240 ml 480 ml 480 ml Output Total 120 ml 200 ml 700 ml Balance -120 ml 240 ml 280 ml -220 ml Intake Oral 240 ml 480 ml 480 ml Output Urine Total 120 ml 200 ml 700 ml # Voids 1 # Bowel Movements 0 Result Diagram: 04/16/18 0236 04/16/18 0236 Imaging Last Impressions Chest X-Ray 04/15/18 0821 Signed Impressions: CONCLUSION: Improved aeration. Mild persistent pleural-parenchymal opacity the left lung ba se. Objective Remarks GENERAL: Alert, oriented x 3 NAD. SKIN: Warm and dry. HEAD: Normocephalic. EYES: No scleral icterus. No injection or drainage. NECK: Supple, trachea midline. No JVD or lymphadenopathy. CARDIOVASCULAR: Regular rate and rhythm without murmurs, gallops, or rubs. RESPIRATORY: Breath sounds equal bilaterally. No accessory muscle use. GASTROINTESTINAL: Abdomen soft, non-tender, nondistended. MUSCULOSKELETAL: No cyanosis, or edema. BACK: Nontender without obvious deformity. No CVA tenderness. Procedures None. A/P Problem List: (1) S/P TAVR (transcatheter aortic valve replacement) ICD Code: Z95.2 - Presence of prosthetic heart valve (2) CAD (coronary artery disease) ICD Code: I25.10 - Atherosclerotic heart disease of [place] coronary artery without angina pectoris (3) Diastolic CHF ICD Code: I50.30 - Unspecified diastolic (congestive) heart failure (4) Acute on chronic kidney failure ICD Code: N17.9 - Acute kidney failure, unspecified; N18.9 - Chronic kidney disease, unspecified (5) COPD (chronic obstructive pulmonary disease) ICD Code: J44.9 - Chronic obstructive pulmonary disease, unspecified (6) CVA (cerebral vascular accident) ICD Code: I63.9 - Cerebral infarction, unspecified Assessment and Plan Mr. Chan is a pleasant 77 year old male with a recent TAVR and post TAVR CVA who was admitted to the hospital due to acute respiratory failure. Paramedics found his O2 sat around 83%. Acute respiratory failure COPD - At rest, patient appears to be doing well on room air. However even minor exertion makes it difficult for him. -Continue supplemental O2 as needed. Continue breathing treatments. -Wait for cardiology to evaluate patient. May need a pulmonary evaluation as well. Aortic stenosis Probable diastolic heart failure -Status post TAVR by Dr. Alberto. Acute kidney injury - Creatinine is around 1.8 - 1.9. Baseline appears to be around 1.0. - Possibly due to volume overload and thus inadequate perfusion. Diabetes mellitus - continue sliding scale insulin Full code. Lovenox 30mg Qday. Problem Qualifiers (1) CAD (coronary artery disease): Qualified Codes: I25.10 - Atherosclerotic heart disease of [place] coronary artery without angina pectoris Moustapha Arias DO Apr 16, 2018 7:13 pm
--- NOTE | 2018-04-16 20:40 | EKG ---
Date Performed: 04/15/2018 Time Performed: 14:39:18 PTAGE: 77 years EKG: Sinus rhythm WITH OCCASIONAL VENTRICULAR PREMATURE COMPLEXES NONSPECIFIC T-WAVE ABNORMALITY BORDERLINE ECG Since PREVIOUS TRACING ,The sinus tachycardia and the minimal non-specific ST-T wave change hav e largely resolved. The PVC's are new. PREVIOUS TRACIN04/15/2018 07.14 DOCTOR: Ericka Fernandez Interpretating Date/Time 04/16/2018 20:39:43
[2018-04-17] VITALS (29 sets, daily range): BP systolic 115–168; BP diastolic 57–79; PULSE 70–108; RESP 18–22; TEMP 97.6–98.9; O2SAT 96–100
--- NOTE | 2018-04-17 02:26 | RADRPT ---
EXAM DATE: 04/17/2018 2:16 AM EDT AGE/SEX: 77 years / Male INDICATIONS: Short of breath. CLINICAL DATA: This is the patient's initial encounter. Patient reports that signs and symptoms have been present for 1 day and indicates a pain score of 0/10. MEDICAL/SURGICAL HISTORY: None. CABG. COMPARISON: C, CHEST SINGLE AP, 04/15/2018. . FINDINGS: Postoperative median sternotomy. Mild basilar airspace disease and small pleural effusions. No pneumo thorax. Heart size upper limits normal. CONCLUSION: Compared with April 15 there is a slight increase in basilar airspace disease and probable slight incre ase in pleural effusions. Electronically signed by: Horace Montiel MD 04/17/2018 2:24 AM EDT
[2018-04-17] MEDS ORDERED: methylPREDNISolone SOD SUCC 125 MG/2 ML VIAL IV PUSH ONE (02:30)
[2018-04-17 02:36] LABS: AUTOMATED NEUTROPHIL # 8.1 TH/MM3 (1.8-7.7); BASOPHIL % 0.2 % (0.0-2.0); HEMATOCRIT 29.4 % (39.0-51.0); LYMPH % 11.4 % (9.0-44.0); LYMPHOCYTE # 1.1 TH/MM3 (1.0-4.8); MEAN CELL VOLUME 88.5 FL (80.0-100.0); MEAN CORPUSCULAR HGB CONC 33.9 % (32.0-36.0); MEAN PLATELET VOLUME 9.5 FL (7.0-11.0); MONO % 4.2 % (0.0-8.0); MONOCYTE # 0.4 TH/MM3 (0-0.9); NEUT % 84.2 % (16.0-70.0); PLATELET COUNT 180 TH/MM3 (150-450); RED BLOOD COUNT 3.32 MIL/MM3 (4.50-5.90); RED CELL DISTRIBUTION WIDTH 17.8 % (11.6-17.2); WHITE BLOOD COUNT 9.7 TH/MM3 (4.0-11.0)
[2018-04-17 02:51] LABS: BICARBONATE 23.6 MEQ/L (21.0-32.0); CALCIUM 8.6 MG/DL (8.5-10.1); CREATININE 1.86 MG/DL (0.60-1.30)
--- NOTE | 2018-04-17 02:54 | HHI.FPPN ---
Addendum to progress note ADDENDUM Reason for addendum: Additonal documentation Additional information S: Michael Franklin and Raisa were called at 1:50AM for a Halicat in Rm 250 and responded to the bedside where Mr Chan, a 77 YO male, was complaining of being out of breath and was being placed in BiPAP by RT. 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 Prior to the Halicat he complained to his nurse when he was sitting up that he couldn't breathe and was noted on auscultation to not be moving air well. Pt denied CP, but did get nauseous after having BiPAP on for 10 minutes. O: VS: T - 97.9 axillary / HR 120 / BP 153/67 / RR 32 with SaO2 100% on BiPAP 15L Vital Signs Date Time Temp Pulse Resp B/P (MAP) Pulse Ox O2 Delivery O2 Flow Rate FiO2 04/17/18 01:00 81 04/17/18 00:06 98.1 20 153/67 (95) 100 04/17/18 00:06 Room Air 04/15/18 09:17 4.00 04/15/18 09:01 50 GENERAL: Well-nourished, well-developed patient with increased RR on BiPAP. SKIN: Warm and dry. HEAD: Normocephalic. EYES: No scleral icterus. No injection or drainage. NECK: Supple, trachea midline. No JVD or lymphadenopathy. CARDIOVASCULAR: Tachycardia with regular rhythm without murmurs, gallops, or rubs. RESPIRATORY: Crackles in right lung base and diminished breath sounds throughout with increased RR but no accessory muscle use. GASTROINTESTINAL: Abdomen soft, non-tender, nondistended. EXTREMITIES: No cyanosis, or edema. NEUROLOGICAL: Awake, alert, and oriented x 3. Non-focal. Laboratory Tests Test 04/17/18 02:05 04/17/18 02:21 Blood Gas Puncture Site LT BRACHIAL Blood Gas Patient Temperature 98.6 Blood Gas HCO3 23 mmol/L (22-26) Blood Gas Base Excess -1.2 mmol/L (-2-2) Blood Gas Oxygen Saturation 97 % (90-100) Arterial Blood pH 7.43 (7.380-7.420) Arterial Blood Partial Pressure CO2 35 mmHg (38-42) Arterial Blood Partial Pressure O2 178 mmHg (61-120) Arterial Blood Oxygen Content 14.2 Vol % (12.0-20.0) Arterial Blood Carboxyhemoglobin 0.8 % (0-4) Arterial Blood Methemoglobin 1.1 % (0-2) Blood Gas Hemoglobin 10.1 G/DL (12.0-16.0) Oxygen Delivery Device BIPAP Blood Gas Ventilator Setting IPAP 15/EPAP 5 Blood Gas Inspired Oxygen 40 % White Blood Count 9.7 TH/MM3 (4.0-11.0) Red Blood Count 3.32 MIL/MM3 (4.50-5.90) Hemoglobin 10.0 GM/DL (13.0-17.0) Hematocrit 29.4 % (39.0-51.0) Mean Corpuscular Volume 88.5 FL (80.0-100.0) Mean Corpuscular Hemoglobin 30.0 PG (27.0-34.0) Mean Corpuscular Hemoglobin Concent 33.9 % (32.0-36.0) Red Cell Distribution Width 17.8 % (11.6-17.2) Platelet Count 180 TH/MM3 (150-450) Mean Platelet Volume 9.5 FL (7.0-11.0) Neutrophils (%) (Auto) 84.2 % (16.0-70.0) Lymphocytes (%) (Auto) 11.4 % (9.0-44.0) Monocytes (%) (Auto) 4.2 % (0.0-8.0) Eosinophils (%) (Auto) 0.0 % (0.0-4.0) Basophils (%) (Auto) 0.2 % (0.0-2.0) Neutrophils # (Auto) 8.1 TH/MM3 (1.8-7.7) Lymphocytes # (Auto) 1.1 TH/MM3 (1.0-4.8) Monocytes # (Auto) 0.4 TH/MM3 (0-0.9) Eosinophils # (Auto) 0.0 TH/MM3 (0-0.4) Basophils # (Auto) 0.0 TH/MM3 (0-0.2) CBC Comment DIFF FINAL Differential Comment Last 24 hours Impressions Chest X-Ray 04/17/18 0000 Signed Impressions: CONCLUSION: Compared with April 15 there is a slight increase in basilar airspace disease and probable slight increase in pleural effusions. A/P: 77 YO male w/PMHx recent TAVR followed by a CVA, CAD, CKD, asthma and COPD who presented with COPD exacerbation was acutely SOB without CP. Consider poorly controlled exacerbation vs PNA. Pt improved with Duonebs and BiPAP PLAN: -ABG with pH 7.43, PCO2 35, PO2 178, HCO3 23 -CXR showing COPD, pleural effusions greater on right and basilar airspace disease -CBC as above -CMP pending -Solumedrol 125 mg -BiPAP -Duonebs -Spoke to Dr Zuniga Pt SDW Dr Josy Kline,Lj Denton MD R1 Apr 17, 2018 02:54
[2018-04-17] MEDS: RESP: ALBUTEROL 2.5 MG/IPRATROPIUM 0.5 MG NEB (SCH) NEB ×4 (03:11→20:07)
[2018-04-17 07:29] LABS: BACTERIA, URINE FEW /hpf; BILIRUBIN, URINE NEG (NEG); BLOOD, URINE LARGE (NEG); GLUCOSE,URINE 300 mg/dL (NEG); KETONE, URINE TRACE mg/dL (NEG); MUCUS URINE FEW /lpf (OCC); NITRITE,URINE NEG (NEG); PH, URINE 5.5 (5.0-8.5); URINE COLOR YELLOW (YELLW/STRAW); URINE LEUKOCYTE ESTERASE LARGE (NEG); WHITE BLOOD CELL CLUMPS OCC
[2018-04-17] MEDS: INSULIN ASPART SUPPLEMENTAL SCALE SQ SCH ×4 (08:00→20:26)
[2018-04-17] MEDS: SODIUM CHLORIDE 0.9% FLUSH 10 ML FLUSH IV FLUSH SCH ×2 (09:00→20:23)
[2018-04-17] MEDS: LACTOBACILLUS ACIDOPHILUS TAB PO SCH ×3 (10:19→18:00)
[2018-04-17] MEDS: FERROUS SULFATE 325 MG (65 MG ELEMENTAL IRON) TAB PO SCH (10:20)
[2018-04-17] MEDS: amLODIPine BESYLATE 5 MG TAB PO SCH (10:20)
[2018-04-17] MEDS: ASPIRIN EC 81 MG TABEC PO SCH (10:20)
[2018-04-17] MEDS: ATORVASTATIN 80 MG TAB PO SCH (10:20)
[2018-04-17] MEDS: DOCUSATE SODIUM 50 MG/SENNA 8.6 MG TAB PO SCH ×2 (10:20→20:23)
[2018-04-17] MEDS: CLOPIDOGREL 75 MG TAB PO SCH (10:21)
[2018-04-17] MEDS: PANTOPRAZOLE SOD 20 MG DELAYED RELEASE TAB PO SCH (10:21)
[2018-04-17] MEDS: predniSONE 20 MG TAB PO SCH ×2 (10:21→20:23)
[2018-04-17] MEDS: CHOLECALCIFEROL (VIT D3) 1000 UNIT TAB PO SCH (10:21)
[2018-04-17] MEDS: guaiFENesin E.R. 600 MG TAB PO SCH ×2 (10:22→20:23)
[2018-04-17] MEDS: METOPROLOL TARTRATE 25 MG TAB PO SCH ×2 (10:22→20:24)
[2018-04-17] MEDS: DOCUSATE SODIUM 100 MG CAP PO SCH ×2 (10:22→20:23)
[2018-04-17] MEDS: MEGESTROL ACETATE 40 MG TAB PO SCH ×2 (10:22→20:23)
[2018-04-17] MEDS: MULTIVITAMINS/MINERALS THERAPEUTIC TAB PO SCH (10:22)
[2018-04-17] MEDS: BUDESONIDE-FORMOTEROL 160/4.5 MCG INHALER INH SCH ×2 (10:43→20:23)
[2018-04-17] MEDS: DRONABINOL 2.5 MG CAP PO SCH ×2 (10:44→14:09)
[2018-04-17] MEDS ORDERED: LEVOFLOXACIN 500 MG TAB PO ONE (11:30)
[2018-04-17] MEDS ORDERED: FAMOTIDINE 20 MG TAB PO ONE (11:30)
[2018-04-17] MEDS ORDERED: FUROSEMIDE 40 MG/4 ML VIAL IV PUSH ONE (12:00)
--- NOTE | 2018-04-17 14:02 | HHI.PR ---
Subjective Remarks Follow up for respiratory failure in a patient with recent TAVR and and post TAVR recent stroke. Patient had significant respiratory distress earlier in the morning and a [facility] was called. Currently, he is resting in bed, on room air without any respiratory difficulties. No CP, fever, chills. Objective Vitals Vital Signs Date Time Temp Pulse Resp B/P (MAP) Pulse Ox O2 Delivery O2 Flow Rate FiO2 04/17/18 11:15 100 Room Air 04/17/18 11:00 94 04/17/18 09:47 100 30 04/17/18 07:30 98.9 92 18 168/79 (108) 100 04/17/18 07:30 100 Bi-Pap 04/17/18 07:00 97 04/17/18 06:00 92 04/17/18 05:00 98 04/17/18 04:00 92 04/17/18 03:05 99 40 04/17/18 03:00 97.6 96 22 144/74 (97) 96 04/17/18 03:00 96 2.00 04/17/18 03:00 91 04/17/18 02:00 108 04/17/18 01:00 81 04/17/18 00:06 98.1 83 20 153/67 (95) 100 04/17/18 00:06 100 Room Air 04/17/18 00:00 82 04/16/18 23:00 78 04/16/18 22:00 76 04/16/18 21:00 82 04/16/18 20:15 98 04/16/18 20:00 78 04/16/18 19:38 99 Room Air 04/16/18 19:38 98.4 80 22 145/65 (91) 99 04/16/18 19:00 78 04/16/18 18:07 76 04/16/18 17:14 88 04/16/18 16:01 71 04/16/18 15:12 74 04/16/18 15:12 98.0 78 18 129/67 (87) 99 04/16/18 15:12 99 Room Air 04/16/18 14:02 81 I/O 04/16/18 04/16/18 04/16/18 04/17/18 04/17/18 04/17/18 07:00 15:00 23:00 07:00 15:00 23:00 Intake Total 480 ml 480 ml 480 ml Output Total 200 ml 700 ml 300 ml Balance 280 ml -220 ml 180 ml Intake Oral 480 ml 480 ml 480 ml Output Urine Total 200 ml 700 ml 300 ml # Bowel Movements 0 Result Diagram: 04/17/18 0221 04/17/18 0221 Imaging Last Impressions Chest X-Ray 04/17/18 0000 Signed Impressions: CONCLUSION: Compared with April 15 there is a slight increase in basilar airspace disease and probable slight increase in pleural effusions. Objective Remarks GENERAL: Alert, oriented x 3 NAD. SKIN: Warm and dry. HEAD: Normocephalic. EYES: No scleral icterus. No injection or drainage. NECK: Supple, trachea midline. No JVD or lymphadenopathy. CARDIOVASCULAR: Regular rate and rhythm without murmurs, gallops, or rubs. RESPIRATORY: Moderate air entry. No appreciable wheezing. No accessory muscle use. GASTROINTESTINAL: Abdomen soft, non-tender, nondistended. MUSCULOSKELETAL: No cyanosis. Has 1+ edema in lower ext. BACK: Nontender without obvious deformity. No CVA tenderness. Procedures None. A/P Problem List: (1) S/P TAVR (transcatheter aortic valve replacement) ICD Code: Z95.2 - Presence of prosthetic heart valve (2) CAD (coronary artery disease) ICD Code: I25.10 - Atherosclerotic heart disease of [place] coronary artery without angina pectoris (3) Diastolic CHF ICD Code: I50.30 - Unspecified diastolic (congestive) heart failure (4) Acute on chronic kidney failure ICD Code: N17.9 - Acute kidney failure, unspecified; N18.9 - Chronic kidney disease, unspecified (5) COPD (chronic obstructive pulmonary disease) ICD Code: J44.9 - Chronic obstructive pulmonary disease, unspecified (6) CVA (cerebral vascular accident) ICD Code: I63.9 - Cerebral infarction, unspecified Assessment and Plan Mr. Chan is a pleasant 77 year old male with a recent TAVR and post TAVR CVA who was admitted to the hospital due to acute respiratory failure. Paramedics found his O2 sat around 83%. Acute respiratory failure COPD exacerbation - At rest, patient appears to be doing well on room air. However even minor exertion makes it difficult for him. -Continue supplemental O2 as needed. Continue breathing treatments. -Will treat him for COPD exacerbation with supplemental O2, Prednisone, Levaquin. -Consult Dr. Kim Sena (Pulmonology). However, Dr. Sena is not available today. Will discuss with Dr. Dotson who is covering for Dr. Sena. -May consider a CT chest study without contrast. Aortic stenosis Probable diastolic heart failure -Status post TAVR by Dr. Alberto. -Discussed with Dr. Alberto - who recommended one dose of IV Lasix. Will also d /c Amlodipine. -Dr. Alberto will evaluate patient today. Acute kidney injury - Creatinine is around 1.8 - 1.9. Baseline appears to be around 1.0. - Possibly due to volume overload and thus inadequate perfusion. - Will re-check BMP. Diabetes mellitus - continue sliding scale insulin. Add long acting Levemir. Full code. Lovenox 30mg Qday. Problem Qualifiers (1) CAD (coronary artery disease): Qualified Codes: I25.10 - Atherosclerotic heart disease of [place] coronary artery without angina pectoris Moustapha Arias DO Apr 17, 2018 2:02 pm
[2018-04-17] MEDS: ENOXAPARIN SODIUM 30 MG/0.3 ML SYRINGE SQ SCH (14:09)
--- NOTE | 2018-04-17 14:55 | MB ---
cc: Ty Alberto MD DATE: 04/17/2018 DATE OF CONSULTATION: 04/17/2018. INDICATION: Shortness of breath. HISTORY OF PRESENT ILLNESS: This is a 77-year-old gentleman known well to my service. 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 He was then subsequently scheduled for an elective transcatheter aortic valve replacement which was performed and complicated by a post-procedural left middle cerebral artery stroke. The patient recovered well with improved neurological status and ultimately was discharged to home with home health. He presented back with acute renal failure and a creatinine greater than 5 mg/dL. Diuretics were held. He was monitored on the floor for over a week. He did have a couple episodes of some shortness of breath which was improved with nebulizer treatments. He has also had some bilateral lower extremity edema and scrotal edema, but seemed improve by the time he was discharged. He went to a subacute nursing facility and checked himself out against medical advice. Subsequently, he presented back to the emergency department with acute onset of shortness of breath on 04/15/2018. He was in what appeared to be severe respiratory distress, was given several nebulizer treatments and antianxiety medication and shortly thereafter significantly improved. We did not at that time get formally involved with the case, although I did see him down in the emergency department. Yesterday evening a [facility] was called again due to severe respiratory distress. A similar treatment plan with Solu-Medrol, DuoNebs, BiPAP and antianxiety medication and subsequent improvement. He is now comfortably,lying in bed without any symptoms. PAST MEDICAL HISTORY: As mentioned above, also includes coronary artery disease, chronic kidney disease, diabetes, hiatal hernia, hypertension, COPD, claudication, acute left MCA stroke post-TAVR, aortic stenosis post-TAVR. MEDICATIONS REPORTED: [place] 3, Vitamin D, Symbicort, Januvia, aspirin. ALLERGIES: STATINS. FAMILY HISTORY: Denies any family history of early cardiac disease or sudden cardiac . SOCIAL HISTORY: Has a [id number] tobacco history. REVIEW OF SYSTEMS: A 12-point review of systems was performed, negative unless otherwise noted in the History Of Present Illness. PHYSICAL EXAMINATION: VITAL SIGNS: Temperature 98, pulse 74, blood pressure 168/79 mmHg. GENERAL: Alert, no distress. HEENT: Shows pupils reactive to light and accommodate, extraocular movements are intact. NECK: No elevation, no venous distention. No thyromegaly. No lymphadenopathy, no carotid bruits. LUNGS: Clear to auscultation bilaterally. CARDIOVASCULAR: Regular with a 1/6 systolic murmur at the left sternal border. ABDOMEN: Nontender, nondistended. Good bowel sounds. No hepatosplenomegaly. EXTREMITIES: Show no clubbing or cyanosis, 2+ edema. NEUROLOGIC EXAM: As previously documented. LABORATORY DATA: WBC 9.7, hemoglobin 10.0, platelet count 180. BUN 30, creatinine is 1.86. Troponins 0.25 but trending down. ASSESSMENT: 1. Severe stenosis, status post transcatheter aortic valve replacement. 2. Left middle cerebral artery stroke. 3. Acute respiratory distress. 4. Acute renal failure on chronic kidney disease. PLAN: I have discussed the case with Dr. Arias. I think his symptoms are primarily induced by both anxiety and possible reactive airway disease. His chest x-ray is not consistent with congestive heart failure, plus he rapidly improves after conservative treatments. We will defer further treatment strategy and plan to Pulmonary. At this point, continue current cardiovascular medications for guideline directed medical therapy. No JIAN inhibitor secondary to renal insufficiency. He does have lower extremity edema when I discontinued amlodipine. After discussion with Dr. Arias, we will try one dose of diuretic therapy if his kidney function can tolerate. I also recommend leg elevation and MIRANDA hose. Troponin is trending down. We will sign off. If you have any further questions, please call. MD ARY Wolfe/SB , 01:49 PM , 02:54 PM
--- NOTE | 2018-04-17 18:50 | MB ---
cc: Mauri Dotson MD, [place] W MD DATE: 04/17/2018 REASON FOR CONSULTATION: COPD HISTORY OF PRESENT ILLNESS: Mr. Chan is a 77-year-old male who has known history of COPD, followed by Dr. Stanislaw Sena for same, history of recent transaortic valve replacement recently discharged from the hospital who presents with increasing shortness of breath. The patient did have fluid overload, diuresed with significant improvement, in no acute distress at present. Denies history of fever, chills, cough, expectoration, or hemoptysis. There is no history of TB or previous industrial exposure. PAST MEDICAL HISTORY: 1. COPD, 2. Status post TAVR. 3. Coronary artery disease. 4. Diabetes mellitus. 5. Hypertension. 6. Status post cerebrovascular accident post TAVR. 7. Hypertension. 8. Diastolic heart failure. MEDICATIONS UPON PRESENTATION: 1. Lactinex 2. Protonix. 3. Metoprolol. 4. DuoNeb. 5. Crestor. 6. Plavix. 7. Symbicort twice daily. ALLERGIES: STATINS. FAMILY HISTORY: Noncontributory. SYSTEMS REVIEW: A 12-point review of systems as per HPI and p history, otherwise negative. PHYSICAL EXAMINATION: GENERAL: On exam, the patient is alert. VITAL SIGNS: Temperature 98, pulse 70, respiration 18, blood pressure 120/70, oxygen saturation 98% on 4 liters oxygen nasal cannula. HEENT: Unremarkable. Eyes without icterus. NECK: Without adenopathy or thyroid enlargement. CHEST: Decreased breath sounds at bases. CARDIAC: PMI distant. S1, S2 audible, 1/6 ejection systolic murmur left sternal border. ABDOMEN: Lax. Bowel sounds audible. EXTREMITIES: 2+ edema. LABORATORY DATA: White count 9.7, hemoglobin 10, hematocrit 29, platelets 180,000. Sodium 143, potassium 4.2, BUN 30, creatinine 1.8. Room air ABG: pH 7.43, pCO2 of 35, pO2 of 178 on BiPAP therapy 40% inspired oxygen fraction. IMAGING STUDIES: Chest x-ray today with bibasilar atelectatic change and probable effusions. IMPRESSION: 1. Shortness of breath, improved. 2. Chronic obstructive pulmonary disease on bronchodilators. 3. Diastolic congestive heart failure. 4. Coronary artery disease. 5. Status post transcatheter aortic valve replacement. 6. Chronic kidney disease. 7. Hypertension. 8. Status post cerebrovascular accident. PLAN: The patient seems to be improving. He has been placed on Bilevel positive airway pressure therapy for acute respiratory distress, which is now resolved. He is doing well on nasal cannula. Diuretic therapy was given with adequate diuresis. We will follow his course along with you and, depending on progress, proceed further. I do thank you for asking me to partake in Mr. Chan's care. Mauri Dotson MD WWW/ , 06:02 PM , 06:49 PM
[2018-04-17] MEDS: FAMOTIDINE 20 MG TAB PO SCH (20:24)
[2018-04-17] MEDS: clonazePAM 0.5 MG TAB PO PRN (20:24)
[2018-04-17] MEDS: INSULIN DETEMIR 100 UNITS/ML VIAL SQ SCH (20:25)
[2018-04-18] VITALS (29 sets, daily range): BP systolic 109–130; BP diastolic 49–83; PULSE 67–90; RESP 16–22; TEMP 97.8–98.3; O2SAT 98–100
[2018-04-18] MEDS: RESP: ALBUTEROL 2.5 MG/IPRATROPIUM 0.5 MG NEB (SCH) NEB ×4 (03:42→20:48)
[2018-04-18 05:58] LABS: BICARBONATE 24.7 MEQ/L (21.0-32.0); CALCIUM 8.8 MG/DL (8.5-10.1); CREATININE 1.96 MG/DL (0.60-1.30)
[2018-04-18] MEDS: INSULIN ASPART SUPPLEMENTAL SCALE SQ SCH ×4 (08:50→20:10)
[2018-04-18] MEDS: BUDESONIDE-FORMOTEROL 160/4.5 MCG INHALER INH SCH ×2 (09:49→20:07)
[2018-04-18] MEDS: guaiFENesin E.R. 600 MG TAB PO SCH ×2 (09:50→20:07)
[2018-04-18] MEDS: FERROUS SULFATE 325 MG (65 MG ELEMENTAL IRON) TAB PO SCH (09:50)
[2018-04-18] MEDS: DOCUSATE SODIUM 100 MG CAP PO SCH ×2 (09:50→20:07)
[2018-04-18] MEDS: DOCUSATE SODIUM 50 MG/SENNA 8.6 MG TAB PO SCH ×2 (09:50→20:07)
[2018-04-18] MEDS: LEVOFLOXACIN 250 MG TAB PO SCH (09:51)
[2018-04-18] MEDS: ASPIRIN EC 81 MG TABEC PO SCH (09:51)
[2018-04-18] MEDS: FAMOTIDINE 20 MG TAB PO SCH ×2 (09:51→20:09)
[2018-04-18] MEDS: MULTIVITAMINS/MINERALS THERAPEUTIC TAB PO SCH (09:51)
[2018-04-18] MEDS: CLOPIDOGREL 75 MG TAB PO SCH (09:51)
[2018-04-18] MEDS: METOPROLOL TARTRATE 25 MG TAB PO SCH ×2 (09:51→20:07)
[2018-04-18] MEDS: predniSONE 20 MG TAB PO SCH ×2 (09:52→20:07)
[2018-04-18] MEDS: LACTOBACILLUS ACIDOPHILUS TAB PO SCH ×3 (09:52→17:00)
[2018-04-18] MEDS: CHOLECALCIFEROL (VIT D3) 1000 UNIT TAB PO SCH (09:52)
[2018-04-18] MEDS: MEGESTROL ACETATE 40 MG TAB PO SCH ×2 (09:52→20:07)
[2018-04-18] MEDS: ATORVASTATIN 40 MG TAB PO SCH (09:52)
[2018-04-18] MEDS: SODIUM CHLORIDE 0.9% FLUSH 10 ML FLUSH IV FLUSH SCH ×2 (09:54→20:08)
[2018-04-18] MEDS ORDERED: FUROSEMIDE 40 MG/4 ML VIAL IV PUSH ONE (10:30)
[2018-04-18] MEDS: DRONABINOL 2.5 MG CAP PO SCH ×2 (11:17→16:59)
[2018-04-18] MEDS: ENOXAPARIN SODIUM 30 MG/0.3 ML SYRINGE SQ SCH (15:13)
--- NOTE | 2018-04-18 18:05 | HHI.PR ---
Subjective Remarks Follow up for respiratory failure in a patient with recent TAVR and and post TAVR recent stroke. Patient is sitting in his chair. No chest pain, SOB, fever, chills. Exertional dyspnea is somewhat improved. Objective Vitals Vital Signs Date Time Temp Pulse Resp B/P (MAP) Pulse Ox O2 Delivery O2 Flow Rate FiO2 04/18/18 17:00 75 04/18/18 16:00 72 04/18/18 15:10 99 Nasal Cannula 2.00 04/18/18 15:10 98.3 81 16 121/68 (85) 99 04/18/18 15:00 68 04/18/18 14:05 69 04/18/18 13:00 78 04/18/18 12:00 74 04/18/18 11:10 100 Nasal Cannula 2.00 04/18/18 11:00 98.0 82 16 130/56 (80) 100 04/18/18 11:00 69 04/18/18 10:35 98 Nasal Cannula 2.00 04/18/18 10:00 90 04/18/18 09:00 90 04/18/18 08:00 82 04/18/18 07:50 100 Nasal Cannula 2.00 04/18/18 07:50 97.8 87 22 117/83 (94) 100 04/18/18 07:00 69 04/18/18 06:00 72 04/18/18 05:00 70 04/18/18 04:00 67 04/18/18 04:00 97.9 67 20 109/49 (69) 98 04/18/18 04:00 Bi-Pap 04/18/18 03:43 100 30 04/18/18 03:00 75 04/18/18 02:00 81 04/18/18 01:00 79 04/18/18 00:45 99 30 04/18/18 00:00 97.8 76 22 114/67 (83) 98 04/18/18 00:00 Bi-Pap 04/18/18 00:00 76 04/17/18 23:00 79 04/17/18 22:00 80 04/17/18 21:00 76 04/17/18 20:07 100 Nasal Cannula 3.00 04/17/18 20:00 Room Air 04/17/18 20:00 78 04/17/18 20:00 97.6 78 22 115/57 (58) 100 I/O 04/17/18 04/17/18 04/17/18 04/18/18 04/18/18 04/18/18 07:00 15:00 23:00 07:00 15:00 23:00 Intake Total 480 ml 960 ml 240 ml Output Total 300 ml 950 ml 650 ml Balance 180 ml 10 ml -410 ml Intake Oral 480 ml 960 ml 240 ml Output Urine Total 300 ml 950 ml 650 ml # Bowel Movements 0 Result Diagram: 04/17/18 0221 04/18/18 0437 Imaging Last Impressions Chest X-Ray 04/17/18 0000 Signed Impressions: CONCLUSION: Compared with April 15 there is a slight increase in basilar airspace disease and probable slight increase in pleural effusions. Objective Remarks GENERAL: Alert, oriented x 3 NAD. SKIN: Warm and dry. HEAD: Normocephalic. EYES: No scleral icterus. No injection or drainage. NECK: Supple, trachea midline. No JVD or lymphadenopathy. CARDIOVASCULAR: Regular rate and rhythm without murmurs, gallops, or rubs. RESPIRATORY: Moderate air entry. No appreciable wheezing. No accessory muscle use. GASTROINTESTINAL: Abdomen soft, non-tender, nondistended. MUSCULOSKELETAL: No cyanosis. Has 1+ edema in lower ext. BACK: Nontender without obvious deformity. No CVA tenderness. Procedures None. A/P Problem List: (1) S/P TAVR (transcatheter aortic valve replacement) ICD Code: Z95.2 - Presence of prosthetic heart valve (2) CAD (coronary artery disease) ICD Code: I25.10 - Atherosclerotic heart disease of [place] coronary artery without angina pectoris (3) Diastolic CHF ICD Code: I50.30 - Unspecified diastolic (congestive) heart failure (4) Acute on chronic kidney failure ICD Code: N17.9 - Acute kidney failure, unspecified; N18.9 - Chronic kidney disease, unspecified (5) COPD (chronic obstructive pulmonary disease) ICD Code: J44.9 - Chronic obstructive pulmonary disease, unspecified (6) CVA (cerebral vascular accident) ICD Code: I63.9 - Cerebral infarction, unspecified Assessment and Plan Mr. Chan is a pleasant 77 year old male with a recent TAVR and post TAVR CVA who was admitted to the hospital due to acute respiratory failure. Paramedics found his O2 sat around 83%. Acute respiratory failure COPD exacerbation -At rest, patient appears to be doing well on room air. However, even minor exertion makes it difficult for him. -Continue supplemental O2 as needed. Continue breathing treatments. -Will treat him for COPD exacerbation with supplemental O2, Prednisone, Levaquin. -Dr. Dotson (Pul) is following. Aortic stenosis Probable diastolic heart failure -Status post TAVR by Dr. Alberto. -Dr. Alberto evaluated patient and signed off. -Will give one more dose of Lasix 40mg IV today. -We might to have to accept renal compromise to improve respiratory status. Acute kidney injury - Creatinine is around 1.8 - 1.9. Baseline appears to be around 1.0. - Possibly due to volume overload and thus inadequate perfusion. Diabetes mellitus - continue sliding scale insulin. Continue long acting Levemir. Full code. Lovenox 30mg Qday. Problem Qualifiers (1) CAD (coronary artery disease): Qualified Codes: I25.10 - Atherosclerotic heart disease of [place] coronary artery without angina pectoris Moustapha Arias DO Apr 18, 2018 18:05
[2018-04-18] MEDS: clonazePAM 0.5 MG TAB PO PRN (20:07)
[2018-04-18] MEDS: INSULIN DETEMIR 100 UNITS/ML VIAL SQ SCH (20:09)
[2018-04-19] VITALS (27 sets, daily range): BP systolic 111–144; BP diastolic 60–74; PULSE 66–93; RESP 16–20; TEMP 97.3–98.6; O2SAT 96–99
[2018-04-19] MEDS: RESP: ALBUTEROL 2.5 MG/IPRATROPIUM 0.5 MG NEB (SCH) NEB ×2 (02:49→09:23)
[2018-04-19] MEDS: INSULIN ASPART SUPPLEMENTAL SCALE SQ SCH ×4 (08:00→20:57)
[2018-04-19] MEDS: BUDESONIDE-FORMOTEROL 160/4.5 MCG INHALER INH SCH ×2 (09:00→20:51)
[2018-04-19] MEDS: predniSONE 20 MG TAB PO SCH ×2 (10:03→20:56)
[2018-04-19] MEDS: guaiFENesin E.R. 600 MG TAB PO SCH ×2 (10:03→20:54)
[2018-04-19] MEDS: FAMOTIDINE 20 MG TAB PO SCH ×2 (10:03→20:54)
[2018-04-19] MEDS: LACTOBACILLUS ACIDOPHILUS TAB PO SCH ×3 (10:03→17:32)
[2018-04-19] MEDS: FERROUS SULFATE 325 MG (65 MG ELEMENTAL IRON) TAB PO SCH (10:04)
[2018-04-19] MEDS: CHOLECALCIFEROL (VIT D3) 1000 UNIT TAB PO SCH (10:04)
[2018-04-19] MEDS: METOPROLOL TARTRATE 25 MG TAB PO SCH ×2 (10:04→21:02)
[2018-04-19] MEDS: CLOPIDOGREL 75 MG TAB PO SCH (10:04)
[2018-04-19] MEDS: MEGESTROL ACETATE 40 MG TAB PO SCH ×2 (10:04→20:54)
[2018-04-19] MEDS: DOCUSATE SODIUM 50 MG/SENNA 8.6 MG TAB PO SCH ×2 (10:04→20:55)
[2018-04-19] MEDS: DOCUSATE SODIUM 100 MG CAP PO SCH ×2 (10:04→20:54)
[2018-04-19] MEDS: ASPIRIN EC 81 MG TABEC PO SCH (10:05)
[2018-04-19] MEDS: ATORVASTATIN 40 MG TAB PO SCH (10:05)
[2018-04-19] MEDS: LEVOFLOXACIN 250 MG TAB PO SCH (10:05)
[2018-04-19] MEDS: MULTIVITAMINS/MINERALS THERAPEUTIC TAB PO SCH (10:06)
[2018-04-19] MEDS: SODIUM CHLORIDE 0.9% FLUSH 10 ML FLUSH IV FLUSH SCH ×2 (10:06→20:58)
--- NOTE | 2018-04-19 10:57 | HHI.PR ---
Subjective Remarks Follow up for heart failure, DOREEN, respiratory failure. Patient is doing well on nasal cannula. Walk test later in the day indicated no need for home O2. His O2 remained 90 or better. Overall, he is breathing better, no fever, chills. Objective Vitals Vital Signs Date Time Temp Pulse Resp B/P (MAP) Pulse Ox O2 Delivery O2 Flow Rate FiO2 04/19/18 10:00 84 04/19/18 09:27 97 Nasal Cannula 3.00 04/19/18 09:00 84 04/19/18 08:00 80 04/19/18 07:58 Nasal Cannula 2.00 04/19/18 07:58 97.3 85 16 144/64 (90) 99 04/19/18 07:00 93 04/19/18 06:00 77 04/19/18 05:00 79 04/19/18 04:00 98.1 85 18 136/70 (92) 96 04/19/18 04:00 85 04/19/18 04:00 Nasal Cannula 2.00 04/19/18 03:00 79 04/19/18 02:00 83 04/19/18 01:00 84 04/19/18 00:00 Nasal Cannula 2.00 04/19/18 00:00 81 04/19/18 00:00 98.3 81 18 111/63 (79) 97 04/18/18 23:00 79 04/18/18 22:00 80 04/18/18 21:00 76 04/18/18 20:51 99 Nasal Cannula 3.00 04/18/18 20:00 73 04/18/18 20:00 97.9 73 18 118/57 (77) 98 04/18/18 20:00 Nasal Cannula 2.00 04/18/18 18:00 84 04/18/18 17:00 75 04/18/18 16:00 72 04/18/18 15:10 99 Nasal Cannula 2.00 04/18/18 15:10 98.3 81 16 121/68 (85) 99 04/18/18 15:00 68 04/18/18 14:05 69 04/18/18 13:00 78 04/18/18 12:00 74 04/18/18 11:10 100 Nasal Cannula 2.00 04/18/18 11:00 98.0 82 16 130/56 (80) 100 04/18/18 11:00 69 I/O 04/18/18 04/18/18 04/18/18 04/19/18 04/19/18 04/19/18 07:00 15:00 23:00 07:00 15:00 23:00 Intake Total 240 ml 960 ml 240 ml Output Total 650 ml 1475 ml 650 ml Balance -410 ml -515 ml -410 ml Intake Oral 240 ml 960 ml 240 ml Output Urine Total 650 ml 1475 ml 650 ml # Bowel Movements 0 0 Result Diagram: 04/17/18 0221 04/18/18 0437 Imaging Last Impressions Chest X-Ray 04/17/18 0000 Signed Impressions: CONCLUSION: Compared with April 15 there is a slight increase in basilar airspace disease and probable slight increase in pleural effusions. Objective Remarks GENERAL: Alert, oriented x 3 NAD. SKIN: Warm and dry. HEAD: Normocephalic. EYES: No scleral icterus. No injection or drainage. NECK: Supple, trachea midline. No JVD or lymphadenopathy. CARDIOVASCULAR: Regular rate and rhythm without murmurs, gallops, or rubs. RESPIRATORY: Moderate air entry. No appreciable wheezing. No accessory muscle use. GASTROINTESTINAL: Abdomen soft, non-tender, nondistended. MUSCULOSKELETAL: No cyanosis. Has 1+ edema in lower ext. BACK: Nontender without obvious deformity. No CVA tenderness. Procedures None. A/P Problem List: (1) S/P TAVR (transcatheter aortic valve replacement) ICD Code: Z95.2 - Presence of prosthetic heart valve (2) CAD (coronary artery disease) ICD Code: I25.10 - Atherosclerotic heart disease of [place] coronary artery without angina pectoris (3) Diastolic CHF ICD Code: I50.30 - Unspecified diastolic (congestive) heart failure (4) Acute on chronic kidney failure ICD Code: N17.9 - Acute kidney failure, unspecified; N18.9 - Chronic kidney disease, unspecified (5) COPD (chronic obstructive pulmonary disease) ICD Code: J44.9 - Chronic obstructive pulmonary disease, unspecified (6) CVA (cerebral vascular accident) ICD Code: I63.9 - Cerebral infarction, unspecified Assessment and Plan Mr. Chan is a pleasant 77 year old male with a recent TAVR and post TAVR CVA who was admitted to the hospital due to acute respiratory failure. Paramedics found his O2 sat around 83%. Acute respiratory failure COPD exacerbation -Continue breathing treatments. -As needed supplemental O2, Prednisone, Levaquin. -Dr[facility] Dotson ([facility]) is following. Aortic stenosis Probable diastolic heart failure -Status post TAVR by Dr. Alberto. -Dr. Alberto evaluated patient and signed off. -We gave IV lasix with caution. Will start patient on Torsemide 10mg BID tomorrow. -Will check BMP in the AM. Acute kidney injury - Creatinine is around 1.8 - 1.9. Baseline appears to be around 1.0. - Possibly due to volume overload and thus inadequate perfusion. Diabetes mellitus - continue sliding scale insulin. Continue long acting Levemir. Full code. Lovenox 30mg Qday. Probable discharge on 04/20/2018. Problem Qualifiers (1) CAD (coronary artery disease): Qualified Codes: I25.10 - Atherosclerotic heart disease of [place] coronary artery without angina pectoris Moustapha Arias DO Apr 19, 2018 10:57
[2018-04-19] MEDS: DRONABINOL 2.5 MG CAP PO SCH ×2 (12:30→15:24)
[2018-04-19] MEDS: ENOXAPARIN SODIUM 30 MG/0.3 ML SYRINGE SQ SCH (15:24)
--- NOTE | 2018-04-19 16:18 | HHI.PR ---
Subjective Remarks ALERT NO DISTRESS Objective Vital Signs Date Time Temp Pulse Resp B/P (MAP) Pulse Ox O2 Delivery O2 Flow Rate FiO2 04/19/18 16:00 67 04/19/18 15:00 93 04/19/18 15:00 97.4 73 16 141/65 (90) 98 04/19/18 15:00 Room Air 04/19/18 14:00 70 04/19/18 13:00 70 04/19/18 12:00 72 04/19/18 11:00 98.4 86 16 135/60 (85) 98 04/19/18 11:00 93 04/19/18 11:00 Room Air 04/19/18 10:00 84 04/19/18 09:27 97 Nasal Cannula 3.00 04/19/18 09:00 84 04/19/18 08:00 80 04/19/18 07:58 Nasal Cannula 2.00 04/19/18 07:58 97.3 85 16 144/64 (90) 99 04/19/18 07:00 93 04/19/18 06:00 77 04/19/18 05:00 79 04/19/18 04:00 98.1 85 18 136/70 (92) 96 04/19/18 04:00 85 04/19/18 04:00 Nasal Cannula 2.00 04/19/18 03:00 79 04/19/18 02:00 83 04/19/18 01:00 84 04/19/18 00:00 Nasal Cannula 2.00 04/19/18 00:00 81 04/19/18 00:00 98.3 81 18 111/63 (79) 97 04/18/18 23:00 79 04/18/18 22:00 80 04/18/18 21:00 76 04/18/18 20:51 99 Nasal Cannula 3.00 04/18/18 20:00 73 04/18/18 20:00 97.9 73 18 118/57 (77) 98 04/18/18 20:00 Nasal Cannula 2.00 04/18/18 18:00 84 04/18/18 17:00 75 I/O 04/18/18 04/18/18 04/18/18 04/19/18 04/19/18 04/19/18 07:00 15:00 23:00 07:00 15:00 23:00 Intake Total 240 ml 960 ml 240 ml Output Total 650 ml 1475 ml 650 ml Balance -410 ml -515 ml -410 ml Intake Oral 240 ml 960 ml 240 ml Output Urine Total 650 ml 1475 ml 650 ml # Bowel Movements 0 0 Result Diagram: 04/17/18 0221 04/18/18 0437 Objective Remarks GENERAL: SKIN: Warm and dry. HEAD: Atraumatic. Normocephalic. EYES: Pupils equal and round. No scleral icterus. No injection or drainage. ENT: No nasal bleeding or discharge. Mucous membranes pink and moist. NECK: Trachea midline. No JVD. CARDIOVASCULAR: Regular rate and rhythm. RESPIRATORY: No accessory muscle use. Clear to auscultation. Breath sounds equal bilaterally. GASTROINTESTINAL: Abdomen soft, non-tender, nondistended. Hepatic and splenic margins not palpable. MUSCULOSKELETAL: Extremities without clubbing, cyanosis, or edema. No obvious deformities. NEUROLOGICAL: Awake and alert. No obvious cranial nerve deficits. Motor grossly within normal limits. Five out of 5 muscle strength in the arms and legs. Normal speech. PSYCHIATRIC: Appropriate mood and affect; insight and judgment normal. Assessment and Plan Assessment and Plan IMPRESSION COPD S/P TAVR DIASTOLIC CHF PLAN O2 NEEDED BRONCHODILATOR THERAPY INCREASE ACTIVITY Mauri Dotson MD Apr 19, 2018 16:18
[2018-04-19] MEDS: clonazePAM 0.5 MG TAB PO PRN (20:53)
[2018-04-19] MEDS: INSULIN DETEMIR 100 UNITS/ML VIAL SQ SCH (20:57)
[2018-04-20] VITALS (24 sets, daily range): BP systolic 124–153; BP diastolic 59–71; PULSE 62–79; RESP 20–24; TEMP 97.6–98.2; O2SAT 97–100
[2018-04-20] MEDS ORDERED: ONDANSETRON ODT 4 MG TAB PO PRN (01:30)
[2018-04-20] MEDS: RESP: ALBUTEROL 2.5 MG/IPRATROPIUM 0.5 MG NEB (PRN) NEB ×3 (04:25→16:27)
[2018-04-20 07:35] LABS: BICARBONATE 26.9 MEQ/L (21.0-32.0); CALCIUM 8.4 MG/DL (8.5-10.1); CREATININE 1.81 MG/DL (0.60-1.30)
[2018-04-20] MEDS ORDERED: PRED20 PO (08:51)
[2018-04-20] MEDS ORDERED: CLON.5 PO (08:51)
[2018-04-20] MEDS ORDERED: LEVA250T14 PO (08:51)
[2018-04-20] MEDS ORDERED: TORS5TAB2 PO (08:51)
--- NOTE | 2018-04-20 08:52 | HHI.FF ---
Face to Face Verification Diagnosis: (1) CVA (cerebral vascular accident) (2) CAD (coronary artery disease) (3) Aortic stenosis (4) COPD (chronic obstructive pulmonary disease) (5) Diastolic CHF Physical Therapy Order: Evaluate and Treat, Improve ambulation, Strength and gait training Home Health Nursing Order: Medical education Signs/symptoms of disease process Diabetic education CHF education Medication education-adverse effect Nursing assessment with vital signs I have seen patient Jeanie Chan on 04/20/18. My clinical findings support the need for the requested home health care services because: Ltd mobility - disease progression Patient has SOB Deconditioned w/ increased weakness Limited ability to care for self Need for psychosocial assistance Impaired cognition/judgement High risk of falls Infection w/ risk of complications I certify that my clinical findings support that this patient is homebound because: Post-op weakness Hx COPD- exertion dyspnea/weakness Unsteady gait/balance Unsafe to leave home unassisted Unable to use public transportation Poor cardiac reserve Moustapha Arias DO Apr 20, 2018 8:52 am
[2018-04-20] MEDS: DOCUSATE SODIUM 100 MG CAP PO SCH ×2 (09:00→22:47)
[2018-04-20] MEDS: BUDESONIDE-FORMOTEROL 160/4.5 MCG INHALER INH SCH ×2 (09:19→22:47)
[2018-04-20] MEDS: INSULIN ASPART SUPPLEMENTAL SCALE SQ SCH ×4 (09:19→22:51)
[2018-04-20] MEDS: SODIUM CHLORIDE 0.9% FLUSH 10 ML FLUSH IV FLUSH SCH ×2 (09:20→22:53)
[2018-04-20] MEDS: FERROUS SULFATE 325 MG (65 MG ELEMENTAL IRON) TAB PO SCH (09:20)
[2018-04-20] MEDS: ATORVASTATIN 40 MG TAB PO SCH (09:20)
[2018-04-20] MEDS: predniSONE 20 MG TAB PO SCH ×2 (09:20→22:47)
[2018-04-20] MEDS: LACTOBACILLUS ACIDOPHILUS TAB PO SCH ×3 (09:20→18:24)
[2018-04-20] MEDS: LEVOFLOXACIN 250 MG TAB PO SCH (09:21)
[2018-04-20] MEDS: guaiFENesin E.R. 600 MG TAB PO SCH ×2 (09:21→22:48)
[2018-04-20] MEDS: FAMOTIDINE 20 MG TAB PO SCH ×2 (09:21→22:48)
[2018-04-20] MEDS: METOPROLOL TARTRATE 25 MG TAB PO SCH ×2 (09:22→22:47)
[2018-04-20] MEDS: CHOLECALCIFEROL (VIT D3) 1000 UNIT TAB PO SCH (09:22)
[2018-04-20] MEDS: DOCUSATE SODIUM 50 MG/SENNA 8.6 MG TAB PO SCH ×2 (09:22→22:47)
[2018-04-20] MEDS: ASPIRIN EC 81 MG TABEC PO SCH (09:22)
[2018-04-20] MEDS: TORSEMIDE 5 MG TAB PO SCH ×2 (09:22→18:24)
[2018-04-20] MEDS: MULTIVITAMINS/MINERALS THERAPEUTIC TAB PO SCH (09:23)
[2018-04-20] MEDS: CLOPIDOGREL 75 MG TAB PO SCH (09:23)
[2018-04-20] MEDS: MEGESTROL ACETATE 40 MG TAB PO SCH ×2 (09:23→22:47)
--- NOTE | 2018-04-20 11:32 | PD.CARD.PN ---
Subjective Subjective Remarks doing well Objective Medications Current Medications Medications (Trade) Dose Ordered Sig/Yuki Route Start Time Stop Time Status Last Admin (NS Flush) 2 ml UNSCH PRN IV FLUSH 04/15/18 14:30 (NS Flush) 2 ml BID IV FLUSH 04/15/18 21:00 04/20/18 09:20 (Tylenol) 650 mg Q4H PRN PO 04/15/18 14:30 (Zofran Odt) 4 mg Q6H PRN PO 04/15/18 14:30 04/17/18 02:15 (Reglan Inj) 5 mg Q6H PRN IV PUSH 04/15/18 14:30 04/16/18 12:24 (Lovenox Inj) 30 mg Q24H SQ 04/15/18 15:00 04/19/18 15:24 (Tylenol) 650 mg Q6H PRN PO 04/15/18 14:30 (Percocet 5-325 Mg) 1 tab Q6H PRN PO 04/15/18 14:30 (Percocet 10-325 Mg) 1 tab Q6H PRN PO 04/15/18 14:30 (Morphine Inj) 2 mg Q3H PRN IV PUSH 04/15/18 14:30 (Morphine Inj) 4 mg Q3H PRN IV PUSH 04/15/18 14:30 (Morphine Inj) 4 mg Q3H PRN IV PUSH 04/15/18 14:30 04/19/18 20:53 (Narcan Inj) 0.4 mg UNSCH PRN IV PUSH 04/15/18 14:30 (Padmini-Colace) 1 tab BID PO 04/15/18 21:00 04/20/18 09:22 (Milk Of Magnesia Liq) 30 ml Q12H PRN PO 04/15/18 14:30 (Senokot) 17.2 mg Q12H PRN PO 04/15/18 14:30 (Dulcolax Supp) 10 mg DAILY PRN RECTAL 04/15/18 14:30 (Lactulose Liq) 30 ml DAILY PRN PO 04/15/18 14:30 (D50w (Vial) Inj) 50 ml UNSCH PRN IV PUSH 04/15/18 14:30 (Glucagon Inj) 1 mg UNSCH PRN OTHER 6/6/18 14:30 (NovoLOG SUPPLEMENTAL SCALE) 1 ACHS SLIDING SCALE SQ 04/15/18 17:00 04/20/18 09:19 (Ecotrin Ec) 81 mg DAILY PO 04/16/18 09:00 04/20/18 09:22 (Symbicort 160-4.5 Mcg Inh) 2 puff Q12HR INH 04/15/18 21:00 04/20/18 09:19 (Vitamin D3) 2,000 units DAILY PO 04/16/18 09:00 04/20/18 09:22 (Plavix) 75 mg DAILY PO 04/16/18 09:00 04/20/18 09:23 (Colace) 100 mg BID PO 04/15/18 21:00 04/19/18 20:54 (Marinol) 2.5 mg BID@,16 PO 04/15/18 16:00 04/19/18 15:24 (Ferrous Sulfate) 325 mg DAILY PO 04/16/18 09:00 04/20/18 09:20 (Megace) 40 mg Q12HR PO 04/15/18 21:00 04/20/18 09:23 (Lopressor) 25 mg Q12HR PO 04/15/18 21:00 04/20/18 09:22 (Theragran M Tab) 1 tab DAILY PO 04/16/18 09:00 04/20/18 09:23 (Januvia) 100 mg DAILY PO 04/16/18 09:00 04/20/18 09:21 (Lactinex) 1 tab TID PO 04/15/18 18:00 04/20/18 09:20 (Duoneb Neb) 1 ampule Q2HR NEB PRN NEB 04/15/18 14:30 04/20/18 09:02 (Mucinex Er) 600 mg BID PO 04/15/18 21:00 04/20/18 09:21 (Deltasone) 20 mg BID PO 04/15/18 21:00 04/20/18 09:20 (KlonoPIN) 0.5 mg Q8HR PRN PO 04/17/18 11:30 04/19/18 20:53 (Levaquin) 250 mg DAILY PO 04/18/18 09:00 04/20/18 09:21 (Pepcid) 10 mg BID PO 04/17/18 21:00 04/20/18 09:21 (Lipitor) 40 mg DAILY PO 04/18/18 09:00 04/20/18 09:20 (Levemir Inj) 7 units HS SQ 04/17/18 21:00 04/19/18 20:57 (Demadex) 10 mg BID@18 PO 04/20/18 09:00 04/20/18 09:22 (Zofran Odt) 4 mg Q6H PRN PO 04/20/18 01:30 Vital Signs / I&O Vital Signs Date Time Temp Pulse Resp B/P (MAP) Pulse Ox O2 Delivery O2 Flow Rate FiO2 04/20/18 09:02 100 Nasal Cannula 2.00 04/20/18 09:00 97.6 71 22 153/71 (98) 100 04/20/18 05:00 73 04/20/18 04:00 98.2 70 24 148/68 (94) 98 04/20/18 04:00 75 04/20/18 04:00 Nasal Cannula 2.00 04/20/18 03:00 72 04/20/18 02:00 77 04/20/18 01:00 79 04/20/18 00:00 72 04/19/18 23:30 Room Air 04/19/18 23:30 98.1 72 18 137/74 (95) 96 04/19/18 23:00 70 04/19/18 22:00 69 04/19/18 21:00 72 04/19/18 20:20 99 21 04/19/18 20:00 66 04/19/18 20:00 Room Air 04/19/18 20:00 98.6 66 20 131/67 (88) 97 04/19/18 18:00 74 04/19/18 17:00 66 04/19/18 16:00 67 04/19/18 15:00 93 04/19/18 15:00 97.4 73 16 141/65 (90) 98 04/19/18 15:00 Room Air 04/19/18 14:00 70 04/19/18 13:00 70 04/19/18 12:00 72 I/O 04/19/18 04/19/18 04/19/18 04/20/18 04/20/18 04/20/18 07:00 15:00 23:00 07:00 15:00 23:00 Intake Total 240 ml 480 ml 240 ml Output Total 650 ml 425 ml 550 ml Balance -410 ml 55 ml -310 ml Intake Oral 240 ml 480 ml 240 ml Output Urine Total 650 ml 425 ml 550 ml # Bowel Movements 0 0 Physical Exam GENERAL: SKIN: Warm and dry. HEAD: Normocephalic. EYES: No scleral icterus. No injection or drainage. NECK: Supple, trachea midline. No JVD or lymphadenopathy. CARDIOVASCULAR: Regular rate and rhythm without murmurs, gallops, or rubs. RESPIRATORY: Breath sounds equal bilaterally. No accessory muscle use. GASTROINTESTINAL: Abdomen soft, non-tender, nondistended. MUSCULOSKELETAL: No cyanosis, or edema. BACK: Nontender without obvious deformity. No CVA tenderness. Laboratory Laboratory Tests Test 04/20/18 06:33 Blood Urea Nitrogen 41 MG/DL Creatinine 1.81 MG/DL Random Glucose 159 MG/DL Calcium Level 8.4 MG/DL Sodium Level 141 MEQ/L Potassium Level 4.3 MEQ/L Chloride Level 106 MEQ/L Carbon Dioxide Level 26.9 MEQ/L Anion Gap 8 MEQ/L Estimat Glomerular Filtration Rate 37 ML/MIN Imaging Last Impressions Chest X-Ray 04/17/18 0000 Signed Impressions: CONCLUSION: Compared with April 15 there is a slight increase in basilar airspace disease and probable slight increase in pleural effusions. Assessment and Plan Assessment and Plan s/p TAVR ARF on CKD SOB home nebulizer continue cardiac meds PO diuretic BMP in one week FU with Ty Levin MD Apr 20, 2018 11:32
[2018-04-20] MEDS ORDERED: NALOXONE HCL 0.4 MG/ML AMP IV PUSH PRN (12:15)
[2018-04-20] MEDS ORDERED: SENNOSIDES 8.6 MG TAB PO PRN (12:15)
[2018-04-20] MEDS ORDERED: BISACODYL 10 MG SUPP RECTAL PRN (12:15)
[2018-04-20] MEDS ORDERED: LACTULOSE SYRUP 20 GM/30 ML CUP PO PRN (12:15)
[2018-04-20] MEDS: ENOXAPARIN SODIUM 30 MG/0.3 ML SYRINGE SQ SCH (14:03)
[2018-04-20] MEDS: MAGNESIUM HYDROXIDE SUSP 30 ML CUP PO PRN (14:08)
--- NOTE | 2018-04-20 14:21 | HHI.PR ---
Subjective Remarks Follow up for heart failure, DOREEN, respiratory failure. Patient is sleeping in his chair. He appears to be very lethargic. No CP, SOB, fever, chills. We took him off supplemental O2 and currently doing well. Objective Vitals Vital Signs Date Time Temp Pulse Resp B/P (MAP) Pulse Ox O2 Delivery O2 Flow Rate FiO2 04/20/18 11:20 99 Room Air 04/20/18 09:02 100 Nasal Cannula 2.00 04/20/18 09:00 97.6 71 22 153/71 (98) 100 04/20/18 08:30 Nasal Cannula 2.00 04/20/18 05:00 73 04/20/18 04:00 98.2 70 24 148/68 (94) 98 04/20/18 04:00 75 04/20/18 04:00 Nasal Cannula 2.00 04/20/18 03:00 72 04/20/18 02:00 77 04/20/18 01:00 79 04/20/18 00:00 72 04/19/18 23:30 Room Air 04/19/18 23:30 98.1 72 18 137/74 (95) 96 04/19/18 23:00 70 04/19/18 22:00 69 04/19/18 21:00 72 04/19/18 20:20 99 21 04/19/18 20:00 66 04/19/18 20:00 Room Air 04/19/18 20:00 98.6 66 20 131/67 (88) 97 04/19/18 18:00 74 04/19/18 17:00 66 04/19/18 16:00 67 04/19/18 15:00 93 04/19/18 15:00 97.4 73 16 141/65 (90) 98 04/19/18 15:00 Room Air I/O 04/19/18 04/19/18 04/19/18 04/20/18 04/20/18 04/20/18 07:00 15:00 23:00 07:00 15:00 23:00 Intake Total 240 ml 480 ml 240 ml Output Total 650 ml 425 ml 550 ml Balance -410 ml 55 ml -310 ml Intake Oral 240 ml 480 ml 240 ml Output Urine Total 650 ml 425 ml 550 ml # Bowel Movements 0 0 Result Diagram: 04/17/1822004/20/18 0633 Imaging Last Impressions Chest X-Ray 04/17/18 0000 Signed Impressions: CONCLUSION: Compared with April 15 there is a slight increase in basilar airspace disease and probable slight increase in pleural effusions. Objective Remarks GENERAL: Alert, oriented x 3 NAD. SKIN: Warm and dry. HEAD: Normocephalic. EYES: No scleral icterus. No injection or drainage. NECK: Supple, trachea midline. No JVD or lymphadenopathy. CARDIOVASCULAR: Regular rate and rhythm without murmurs, gallops, or rubs. RESPIRATORY: Moderate air entry. No appreciable wheezing. No accessory muscle use. GASTROINTESTINAL: Abdomen soft, non-tender, nondistended. MUSCULOSKELETAL: No cyanosis. Has 1+ edema in lower ext. BACK: Nontender without obvious deformity. No CVA tenderness. Procedures None. A/P Problem List: (1) S/P TAVR (transcatheter aortic valve replacement) ICD Code: Z95.2 - Presence of prosthetic heart valve (2) CAD (coronary artery disease) ICD Code: I25.10 - Atherosclerotic heart disease of [place] coronary artery without angina pectoris (3) Diastolic CHF ICD Code: I50.30 - Unspecified diastolic (congestive) heart failure (4) Acute on chronic kidney failure ICD Code: N17.9 - Acute kidney failure, unspecified; N18.9 - Chronic kidney disease, unspecified (5) COPD (chronic obstructive pulmonary disease) ICD Code: J44.9 - Chronic obstructive pulmonary disease, unspecified (6) CVA (cerebral vascular accident) ICD Code: I63.9 - Cerebral infarction, unspecified Assessment and Plan Mr. Chan is a pleasant 77 year old male with a recent TAVR and post TAVR CVA who was admitted to the hospital due to acute respiratory failure. Paramedics found his O2 sat around 83%. Generalized weakness - No clear etiology. ABG does not show any CO2 retention. Ammonia level 10. - Will re-check later in the afternoon. Asymptomatic candiduria - Pt and denies any urinary symptoms. No treatment necessary. Acute respiratory failure COPD exacerbation -Continue breathing treatments. -currently on room air, Prednisone, Levaquin. -Dr. Dotson ([facility]) is following. Aortic stenosis Probable diastolic heart failure -Status post TAVR by Dr. Alberto. -Dr. Alberto evaluated patient and signed off. Discussed with Dr. Alberto again today - 04/20/2018. -We gave IV lasix with caution. Continue Torsemide 10mg BID tomorrow. Acute kidney injury - Creatinine is around 1.8 - 1.9. Baseline appears to be around 1.0. - Possibly due to volume overload and thus inadequate perfusion. Diabetes mellitus - continue sliding scale insulin. Continue long acting Levemir. Full code. Lovenox 30mg Qday. Possible discharge later today or tomorrow if perks up some. Problem Qualifiers (1) CAD (coronary artery disease): Qualified Codes: I25.10 - Atherosclerotic heart disease of [place] coronary artery without angina pectoris Moustapha Arias DO Apr 20, 2018 2:21 pm
[2018-04-20] MEDS ORDERED: Albuterol-Ipratropium Neb NEB (15:05)
[2018-04-20] MEDS ORDERED: NEBULIZER1 MI1 (15:05)
[2018-04-20] MEDS ORDERED: VENTAER INH (15:05)
[2018-04-20] MEDS ORDERED: SYMB160A INH (15:05)
[2018-04-20] MEDS: DRONABINOL 2.5 MG CAP PO SCH (16:02)
--- NOTE | 2018-04-20 17:03 | HHI.PR ---
Subjective Remarks ALERT NO DISTRESS Objective Vital Signs Date Time Temp Pulse Resp B/P (MAP) Pulse Ox O2 Delivery O2 Flow Rate FiO2 04/20/18 15:00 98.1 66 20 124/59 (80) 98 04/20/18 15:00 98 Room Air 04/20/18 11:20 99 Room Air 04/20/18 11:00 97.7 70 22 130/62 (84) 99 04/20/18 11:00 67 04/20/18 10:00 74 04/20/18 09:02 100 Nasal Cannula 2.00 04/20/18 09:00 97.6 71 22 153/71 (98) 100 04/20/18 09:00 66 04/20/18 08:30 Nasal Cannula 2.00 04/20/18 08:00 64 04/20/18 07:00 67 04/20/18 05:00 73 04/20/18 04:00 98.2 70 24 148/68 (94) 98 04/20/18 04:00 75 04/20/18 04:00 Nasal Cannula 2.00 04/20/18 03:00 72 04/20/18 02:00 77 04/20/18 01:00 79 04/20/18 00:00 72 04/19/18 23:30 Room Air 04/19/18 23:30 98.1 72 18 137/74 (95) 96 04/19/18 23:00 70 04/19/18 22:00 69 04/19/18 21:00 72 04/19/18 20:20 99 21 04/19/18 20:00 66 04/19/18 20:00 Room Air 04/19/18 20:00 98.6 66 20 131/67 (88) 97 04/19/18 18:00 74 I/O 04/19/18 04/19/18 04/19/18 04/20/18 04/20/18 04/20/18 07:00 15:00 23:00 07:00 15:00 23:00 Intake Total 240 ml 480 ml 240 ml Output Total 650 ml 425 ml 550 ml Balance -410 ml 55 ml -310 ml Intake Oral 240 ml 480 ml 240 ml Output Urine Total 650 ml 425 ml 550 ml # Bowel Movements 0 0 Result Diagram: 04/17/1822004/20/18 0633 Objective Remarks GENERAL: SKIN: Warm and dry. HEAD: Atraumatic. Normocephalic. EYES: Pupils equal and round. No scleral icterus. No injection or drainage. ENT: No nasal bleeding or discharge. Mucous membranes pink and moist. NECK: Trachea midline. No JVD. CARDIOVASCULAR: Regular rate and rhythm. RESPIRATORY: No accessory muscle use. Clear to auscultation. Breath sounds equal bilaterally. GASTROINTESTINAL: Abdomen soft, non-tender, nondistended. Hepatic and splenic margins not palpable. MUSCULOSKELETAL: Extremities without clubbing, cyanosis, or edema. No obvious deformities. NEUROLOGICAL: Awake and alert. No obvious cranial nerve deficits. Motor grossly within normal limits. Five out of 5 muscle strength in the arms and legs. Normal speech. PSYCHIATRIC: Appropriate mood and affect; insight and judgment normal. Assessment and Plan Assessment and Plan IMPRESSION COPD S/P TAVR DIASTOLIC CHF PLAN O2 NEEDED BRONCHODILATOR THERAPY INCREASE ACTIVITY Mauri Dotson MD Apr 20, 2018 17:03
[2018-04-20] MEDS ORDERED: clonazePAM 0.5 MG TAB PO PRN (19:45)
--- NOTE | 2018-04-20 21:56 | RADRPT ---
EXAM DATE: 04/20/2018 9:53 PM EDT AGE/SEX: 77 years / Male INDICATIONS: Short of breath. CLINICAL DATA: This is the patient's initial encounter. Patient reports that signs and symptoms have been present for 1 day and indicates a pain score of 1/10. MEDICAL/SURGICAL HISTORY: Chronic obstructive pulmonary disease. Crohn's disease. CABG. COMPARISON: C, CHEST SINGLE AP, 04/17/2018. . FINDINGS: Tiny bilateral pleural effusions are seen. Left lung base consolidation is seen not significantly kemi nged. CONCLUSION: No appreciable change in left lung base consolidation and the tiny bilateral pleural effusions. Electronically signed by: Josy Taylor MD 04/20/2018 9:55 PM EDT
[2018-04-20] MEDS: INSULIN DETEMIR 100 UNITS/ML VIAL SQ SCH (22:50)
[2018-04-21] VITALS (28 sets, daily range): BP systolic 143–160; BP diastolic 63–72; PULSE 58–100; RESP 18–24; TEMP 96.6–98.2; O2SAT 93–100
[2018-04-21] MEDS: INSULIN ASPART SUPPLEMENTAL SCALE SQ SCH ×4 (08:00→21:00)
[2018-04-21] MEDS: RESP: ALBUTEROL 2.5 MG/IPRATROPIUM 0.5 MG NEB (PRN) NEB ×2 (08:11→15:08)
[2018-04-21] MEDS: FERROUS SULFATE 325 MG (65 MG ELEMENTAL IRON) TAB PO SCH (08:31)
[2018-04-21] MEDS: FAMOTIDINE 20 MG TAB PO SCH ×2 (08:31→21:06)
[2018-04-21] MEDS: ASPIRIN EC 81 MG TABEC PO SCH (08:32)
[2018-04-21] MEDS: MULTIVITAMINS/MINERALS THERAPEUTIC TAB PO SCH (08:32)
[2018-04-21] MEDS: LACTOBACILLUS ACIDOPHILUS TAB PO SCH ×3 (08:32→17:10)
[2018-04-21] MEDS: MEGESTROL ACETATE 40 MG TAB PO SCH ×2 (08:32→21:06)
[2018-04-21] MEDS: ATORVASTATIN 40 MG TAB PO SCH (08:33)
[2018-04-21] MEDS: CLOPIDOGREL 75 MG TAB PO SCH (08:33)
[2018-04-21] MEDS: predniSONE 20 MG TAB PO SCH ×2 (08:33→21:06)
[2018-04-21] MEDS: METOPROLOL TARTRATE 25 MG TAB PO SCH ×2 (08:33→21:06)
[2018-04-21] MEDS: guaiFENesin E.R. 600 MG TAB PO SCH ×2 (08:33→21:06)
[2018-04-21] MEDS: DOCUSATE SODIUM 100 MG CAP PO SCH ×2 (08:33→21:00)
[2018-04-21] MEDS: LEVOFLOXACIN 250 MG TAB PO SCH (08:34)
[2018-04-21] MEDS: BUDESONIDE-FORMOTEROL 160/4.5 MCG INHALER INH SCH ×2 (08:34→21:00)
[2018-04-21] MEDS: TORSEMIDE 5 MG TAB PO SCH ×2 (08:34→17:10)
[2018-04-21] MEDS: CHOLECALCIFEROL (VIT D3) 1000 UNIT TAB PO SCH (08:34)
[2018-04-21] MEDS: SODIUM CHLORIDE 0.9% FLUSH 10 ML FLUSH IV FLUSH SCH ×2 (08:34→21:06)
[2018-04-21] MEDS: DOCUSATE SODIUM 50 MG/SENNA 8.6 MG TAB PO SCH ×2 (08:36→21:00)
[2018-04-21] MEDS: MAGNESIUM HYDROXIDE SUSP 30 ML CUP PO PRN (08:43)
[2018-04-21] MEDS: DRONABINOL 2.5 MG CAP PO SCH ×3 (11:21→15:51)
--- NOTE | 2018-04-21 13:21 | HHI.PR ---
Subjective Remarks Lethargy is improving. Sedatives are being avoided. Patient's renal function is improved slightly but not yet trending towards his prior baseline. Objective Vital Signs Date Time Temp Pulse Resp B/P (MAP) Pulse Ox O2 Delivery O2 Flow Rate FiO2 04/21/18 13:03 93 21 04/21/18 12:00 67 04/21/18 11:00 97.0 65 18 144/70 (94) 100 04/21/18 11:00 100 Room Air 04/21/18 11:00 60 04/21/18 10:00 61 04/21/18 09:00 100 04/21/18 08:00 76 04/21/18 07:00 64 04/21/18 07:00 97 Room Air 04/21/18 07:00 97.2 63 24 152/69 (96) 97 04/21/18 06:00 64 04/21/18 05:00 58 04/21/18 04:00 98.2 68 20 146/72 (96) 98 04/21/18 04:00 71 04/21/18 03:00 58 04/21/18 02:00 58 04/21/18 01:00 58 04/21/18 00:00 98.2 77 20 158/68 (98) 99 04/21/18 00:00 99 Room Air 04/21/18 00:00 64 04/20/18 23:00 74 04/20/18 22:00 63 04/20/18 21:00 62 04/20/18 20:00 98.1 65 20 131/64 (86) 97 04/20/18 20:00 63 04/20/18 20:00 97 Room Air 04/20/18 19:00 66 04/20/18 18:00 62 04/20/18 17:00 66 04/20/18 16:00 64 04/20/18 15:00 66 04/20/18 15:00 98.1 66 20 124/59 (80) 98 04/20/18 15:00 98 Room Air 04/20/18 14:00 74 I/O 04/20/18 04/20/18 04/20/18 04/21/18 04/21/18 04/21/18 07:00 15:00 23:00 07:00 15:00 23:00 Intake Total 240 ml 720 ml Output Total 550 ml 1640 ml 700 ml Balance -310 ml -920 ml -700 ml Intake Oral 240 ml 720 ml Output Urine Total 550 ml 1640 ml 700 ml # Bowel Movements 0 Result Diagram: 04/17/18 0221 04/20/18 0633 Objective Remarks GENERAL: NAD, A&Ox3 HEAD: Normocephalic. NECK: Supple, trachea midline. No lymphadenopathy. EYES: No scleral icterus. No injection or drainage. CARDIOVASCULAR: Regular rate and rhythm without murmurs, gallops, or rubs. RESPIRATORY: Breath sounds equal bilaterally. No accessory muscle use. GASTROINTESTINAL: Abdomen soft, non-tender, nondistended. MUSCULOSKELETAL: No cyanosis, or edema. SKIN: Warm and dry. NEURO: No focal neurological deficitis. A/P Problem List: (1) Aortic stenosis ICD Code: I35.0 - Nonrheumatic aortic (valve) stenosis (2) Diastolic CHF ICD Code: I50.30 - Unspecified diastolic (congestive) heart failure (3) COPD (chronic obstructive pulmonary disease) ICD Code: J44.9 - Chronic obstructive pulmonary disease, unspecified (4) Shortness of breath ICD Code: R06.02 - Shortness of breath Status: Acute Assessment and Plan 77 year old male with a recent TAVR and post TAVR CVA who was admitted to the hospital due to acute respiratory failure and hypoxia. Paramedics found his O2 sat around 83%. Generalized weakness Resolving Continue physical therapy Asymptomatic candiduria Asymptomatic no treatment necessary. Acute respiratory failure COPD exacerbation Continue breathing treatments Continue Levaquin Continue prednisone Pulmonology following Wean off oxygen now Aortic stenosis Probable diastolic heart failure Status post TAVR by Dr. Alberto. No further cardiac investigation needed Continue diuresis Acute kidney injury Monitor for further improvement prior to discharge Baseline creatinine is 1.0 Diabetes mellitus type 2 Follow blood sugars Insulin sliding scale Diabetic diet Continue Levemir DVT prophylaxis Primitivo Rome MD Apr 21, 2018 13:21
[2018-04-21] MEDS: ENOXAPARIN SODIUM 30 MG/0.3 ML SYRINGE SQ SCH (15:51)
--- NOTE | 2018-04-21 18:50 | HHI.PR ---
Subjective Remarks ALERT NO DISTRESS Objective Vital Signs Date Time Temp Pulse Resp B/P (MAP) Pulse Ox O2 Delivery O2 Flow Rate FiO2 04/21/18 18:00 70 04/21/18 17:00 74 04/21/18 16:00 66 04/21/18 15:08 98 21 04/21/18 15:00 97.7 66 22 158/63 (94) 99 04/21/18 15:00 67 04/21/18 15:00 99 Room Air 04/21/18 14:00 62 04/21/18 13:03 93 21 04/21/18 13:00 61 04/21/18 12:00 67 04/21/18 11:00 97.0 65 18 144/70 (94) 100 04/21/18 11:00 100 Room Air 04/21/18 11:00 60 04/21/18 10:00 61 04/21/18 09:00 100 04/21/18 08:00 76 04/21/18 07:00 64 04/21/18 07:00 97 Room Air 04/21/18 07:00 97.2 63 24 152/69 (96) 97 04/21/18 06:00 64 04/21/18 05:00 58 04/21/18 04:00 98.2 68 20 146/72 (96) 98 04/21/18 04:00 71 04/21/18 03:00 58 04/21/18 02:00 58 04/21/18 01:00 58 04/21/18 00:00 98.2 77 20 158/68 (98) 99 04/21/18 00:00 99 Room Air 04/21/18 00:00 64 04/20/18 23:00 74 04/20/18 22:00 63 04/20/18 21:00 62 04/20/18 20:00 98.1 65 20 131/64 (86) 97 04/20/18 20:00 63 04/20/18 20:00 97 Room Air 04/20/18 19:00 66 I/O 04/20/18 04/20/18 04/20/18 04/21/18 04/21/18 04/21/18 07:00 15:00 23:00 07:00 15:00 23:00 Intake Total 240 ml 720 ml 540 ml Output Total 550 ml 1640 ml 700 ml 400 ml Balance -310 ml -920 ml -700 ml 140 ml Intake Oral 240 ml 720 ml 540 ml Output Urine Total 550 ml 1640 ml 700 ml 400 ml # Voids 3 # Bowel Movements 0 1 Result Diagram: 04/17/18 0221 04/20/18 0633 Other Results GENERAL: SKIN: Warm and dry. HEAD: Atraumatic. Normocephalic. EYES: Pupils equal and round. No scleral icterus. No injection or drainage. ENT: No nasal bleeding or discharge. Mucous membranes pink and moist. NECK: Trachea midline. No JVD. CARDIOVASCULAR: Regular rate and rhythm. RESPIRATORY: No accessory muscle use. Clear to auscultation. Breath sounds equal bilaterally. GASTROINTESTINAL: Abdomen soft, non-tender, nondistended. Hepatic and splenic margins not palpable. MUSCULOSKELETAL: Extremities without clubbing, cyanosis, or edema. No obvious deformities. NEUROLOGICAL: Awake and alert. No obvious cranial nerve deficits. Motor grossly within normal limits. Five out of 5 muscle strength in the arms and legs. Normal speech. PSYCHIATRIC: Appropriate mood and affect; insight and judgment normal. Objective Remarks GENERAL: SKIN: Warm and dry. HEAD: Atraumatic. Normocephalic. EYES: Pupils equal and round. No scleral icterus. No injection or drainage. ENT: No nasal bleeding or discharge. Mucous membranes pink and moist. NECK: Trachea midline. No JVD. CARDIOVASCULAR: Regular rate and rhythm. RESPIRATORY: No accessory muscle use. Clear to auscultation. Breath sounds equal bilaterally. GASTROINTESTINAL: Abdomen soft, non-tender, nondistended. Hepatic and splenic margins not palpable. MUSCULOSKELETAL: Extremities without clubbing, cyanosis, or edema. No obvious deformities. NEUROLOGICAL: Awake and alert. No obvious cranial nerve deficits. Motor grossly within normal limits. Five out of 5 muscle strength in the arms and legs. Normal speech. PSYCHIATRIC: Appropriate mood and affect; insight and judgment normal. Assessment and Plan Assessment and Plan IMPRESSION COPD S/P TAVR DIASTOLIC CHF PLAN O2 NEEDED BRONCHODILATOR THERAPY INCREASE ACTIVITY Mauri Dotson MD Apr 21, 2018 18:50
[2018-04-21] MEDS: INSULIN DETEMIR 100 UNITS/ML VIAL SQ SCH (21:00)
[2018-04-22] VITALS (28 sets, daily range): BP systolic 139–170; BP diastolic 54–72; PULSE 55–84; RESP 16–28; TEMP 96.8–98.4; O2SAT 98–100
[2018-04-22 07:11] LABS: AUTOMATED NEUTROPHIL # 9.4 TH/MM3 (1.8-7.7); HEMATOCRIT 29.9 % (39.0-51.0); HEMOGLOBIN 10.2 GM/DL (13.0-17.0); LYMPH % 7.7 % (9.0-44.0); LYMPHOCYTE # 0.8 TH/MM3 (1.0-4.8); MEAN CELL VOLUME 88.7 FL (80.0-100.0); MEAN CORPUSCULAR HEMOGLOBIN 30.2 PG (27.0-34.0); MEAN CORPUSCULAR HGB CONC 34.1 % (32.0-36.0); MEAN PLATELET VOLUME 10.5 FL (7.0-11.0); MONO % 4.6 % (0.0-8.0); MONOCYTE # 0.5 TH/MM3 (0-0.9); NEUT % 87.7 % (16.0-70.0); PLATELET COUNT 180 TH/MM3 (150-450); RED BLOOD COUNT 3.37 MIL/MM3 (4.50-5.90); RED CELL DISTRIBUTION WIDTH 17.5 % (11.6-17.2); WHITE BLOOD COUNT 10.7 TH/MM3 (4.0-11.0)
[2018-04-22 07:12] LABS: ALBUMIN 2.6 GM/DL (3.4-5.0); AST (GOT) 21 U/L (15-37); BICARBONATE 31.9 MEQ/L (21.0-32.0); BLOOD UREA NITROGEN 48 MG/DL (7-18); CHLORIDE 100 MEQ/L (98-107); CREATININE 2.02 MG/DL (0.60-1.30); GLOMERULAR FILTRATION RATE 32 ML/MIN (>89); GLUCOSE,RANDOM 151 MG/DL (74-106); SODIUM (NA) 140 MEQ/L (136-145)
[2018-04-22 07:13] LABS: ALT (GPT) 46 U/L (12-78)
[2018-04-22 07:15] LABS: ALKALINE PHOSPHATASE 112 U/L (45-117); TOTAL BILIRUBIN ADULT 0.6 MG/DL (0.2-1.0); TOTAL PROTEIN 5.6 GM/DL (6.4-8.2)
[2018-04-22] MEDS: INSULIN ASPART SUPPLEMENTAL SCALE SQ SCH ×4 (08:00→21:00)
[2018-04-22] MEDS: DOCUSATE SODIUM 100 MG CAP PO SCH ×2 (09:00→21:00)
[2018-04-22] MEDS: DOCUSATE SODIUM 50 MG/SENNA 8.6 MG TAB PO SCH ×2 (09:00→21:00)
[2018-04-22] MEDS: MEGESTROL ACETATE 40 MG TAB PO SCH (09:48)
[2018-04-22] MEDS: FAMOTIDINE 20 MG TAB PO SCH ×2 (09:48→21:00)
[2018-04-22] MEDS: ATORVASTATIN 40 MG TAB PO SCH (09:49)
[2018-04-22] MEDS: TORSEMIDE 5 MG TAB PO SCH ×2 (09:49→17:20)
[2018-04-22] MEDS: METOPROLOL TARTRATE 25 MG TAB PO SCH ×2 (09:49→21:00)
[2018-04-22] MEDS: guaiFENesin E.R. 600 MG TAB PO SCH ×2 (09:49→21:00)
[2018-04-22] MEDS: CHOLECALCIFEROL (VIT D3) 1000 UNIT TAB PO SCH (09:49)
[2018-04-22] MEDS: FERROUS SULFATE 325 MG (65 MG ELEMENTAL IRON) TAB PO SCH (09:50)
[2018-04-22] MEDS: LACTOBACILLUS ACIDOPHILUS TAB PO SCH ×3 (09:50→17:19)
[2018-04-22] MEDS: MULTIVITAMINS/MINERALS THERAPEUTIC TAB PO SCH (09:50)
[2018-04-22] MEDS: LEVOFLOXACIN 250 MG TAB PO SCH (09:50)
[2018-04-22] MEDS: ASPIRIN EC 81 MG TABEC PO SCH (09:50)
[2018-04-22] MEDS: CLOPIDOGREL 75 MG TAB PO SCH (09:50)
[2018-04-22] MEDS: predniSONE 20 MG TAB PO SCH ×2 (09:50→21:01)
[2018-04-22] MEDS: BUDESONIDE-FORMOTEROL 160/4.5 MCG INHALER INH SCH ×2 (09:57→21:00)
[2018-04-22] MEDS: SODIUM CHLORIDE 0.9% FLUSH 10 ML FLUSH IV FLUSH SCH ×2 (09:57→21:00)
--- NOTE | 2018-04-22 10:40 | HHI.PR ---
Subjective Remarks Drowsiness and confusion are still present. Patient's renal function has worsened again from 1.8-2.0. No complaints from the patient. He did have a fall this morning without trauma. Objective Vital Signs Date Time Temp Pulse Resp B/P (MAP) Pulse Ox O2 Delivery O2 Flow Rate FiO2 04/22/18 08:00 81 04/22/18 07:40 100 Nasal Cannula 2.00 04/22/18 07:00 Nasal Cannula 2.00 04/22/18 07:00 61 04/22/18 07:00 97.8 81 22 163/72 (102) 100 04/22/18 06:00 58 04/22/18 05:00 60 04/22/18 04:00 67 04/22/18 03:09 96.8 61 28 141/72 (95) 98 04/22/18 03:09 98 Room Air 04/22/18 03:00 57 04/22/18 02:00 60 04/22/18 01:00 56 04/22/18 00:00 58 04/21/18 23:11 96.6 66 20 143/66 (91) 99 04/21/18 23:11 99 Room Air 04/21/18 23:00 65 04/21/18 22:00 64 04/21/18 21:43 98 Room Air 04/21/18 21:43 97.2 69 20 160/70 (100) 98 04/21/18 21:00 74 04/21/18 20:00 66 04/21/18 19:00 65 04/21/18 18:00 70 04/21/18 17:00 74 04/21/18 16:00 66 04/21/18 15:08 98 21 04/21/18 15:00 97.7 66 22 158/63 (94) 99 04/21/18 15:00 67 04/21/18 15:00 99 Room Air 04/21/18 14:00 62 04/21/18 13:03 93 21 04/21/18 13:00 61 04/21/18 12:00 67 04/21/18 11:00 97.0 65 18 144/70 (94) 100 04/21/18 11:00 100 Room Air 04/21/18 11:00 60 I/O 6/12/18 6/12/18 04/21/18 04/22/18 04/22/18 04/22/18 07:00 15:00 23:00 07:00 15:00 23:00 Intake Total 540 ml 240 ml Output Total 700 ml 400 ml 700 ml Balance -700 ml 140 ml -460 ml Intake Oral 540 ml 240 ml Output Urine Total 700 ml 400 ml 700 ml # Voids 3 2 # Bowel Movements 1 Result Diagram: 04/22/18 0543 04/22/18 0543 Objective Remarks GENERAL: NAD, A&Ox3 HEAD: Normocephalic. NECK: Supple, trachea midline. No lymphadenopathy. EYES: No scleral icterus. No injection or drainage. CARDIOVASCULAR: Regular rate and rhythm without murmurs, gallops, or rubs. RESPIRATORY: Breath sounds equal bilaterally. No accessory muscle use. GASTROINTESTINAL: Abdomen soft, non-tender, nondistended. MUSCULOSKELETAL: No cyanosis, or edema. SKIN: Warm and dry. NEURO: No focal neurological deficitis. A/P Problem List: (1) Aortic stenosis ICD Code: I35.0 - Nonrheumatic aortic (valve) stenosis (2) Diastolic CHF ICD Code: I50.30 - Unspecified diastolic (congestive) heart failure (3) COPD (chronic obstructive pulmonary disease) ICD Code: J44.9 - Chronic obstructive pulmonary disease, unspecified (4) Shortness of breath ICD Code: R06.02 - Shortness of breath Status: Acute Assessment and Plan 77 year old male with a recent TAVR and post TAVR CVA who was admitted to the hospital due to acute respiratory failure and hypoxia. Paramedics found his O2 sat around 83%. Discontinue Marinol for possibility of lethargy and confusion. Continue Megace at higher dose. Continue physical therapy. IV hydration with 500 mL slow bolus. Follow renal function. Labs ordered for further monitoring. Generalized weakness Resolving Continue physical therapy Asymptomatic candiduria Asymptomatic no treatment necessary. Acute respiratory failure COPD exacerbation Continue breathing treatments Continue Levaquin Continue prednisone Pulmonology following Wean off oxygen now Aortic stenosis Probable diastolic heart failure Status post TAVR by Dr. Alberto. No further cardiac investigation needed Continue diuresis Acute kidney injury Monitor for further improvement prior to discharge Baseline creatinine is 1.0 Diabetes mellitus type 2 Follow blood sugars Insulin sliding scale Diabetic diet Continue Levemir DVT prophylaxis Lovejenniferx Primitivo Nagy MD Apr 22, 2018 10:40
[2018-04-22] MEDS ORDERED: SODIUM CHLORID 0.9% 500 ML INJ 500 ML IV SCH (10:45)
[2018-04-22] MEDS: ENOXAPARIN SODIUM 30 MG/0.3 ML SYRINGE SQ SCH (15:20)
--- NOTE | 2018-04-22 19:40 | HHI.PR ---
Subjective Remarks Awake and seems to be breathing well.still wheezing On O2 3 L. No complaints. Objective Vital Signs Date Time Temp Pulse Resp B/P (MAP) Pulse Ox O2 Delivery O2 Flow Rate FiO2 04/22/18 18:00 62 04/22/18 17:00 55 04/22/18 16:00 64 04/22/18 15:00 98.0 63 16 139/54 (82) 100 04/22/18 15:00 Room Air 04/22/18 15:00 60 04/22/18 14:00 57 04/22/18 13:04 65 04/22/18 12:00 80 04/22/18 11:00 Room Air 04/22/18 11:00 98.0 67 20 143/56 (85) 98 04/22/18 11:00 63 04/22/18 10:00 84 04/22/18 09:00 62 04/22/18 08:00 81 04/22/18 07:40 100 Nasal Cannula 2.00 04/22/18 07:00 Nasal Cannula 2.00 04/22/18 07:00 61 04/22/18 07:00 97.8 81 22 163/72 (102) 100 04/22/18 06:00 58 04/22/18 05:00 60 04/22/18 04:00 67 04/22/18 03:09 96.8 61 28 141/72 (95) 98 04/22/18 03:09 98 Room Air 04/22/18 03:00 57 04/22/18 02:00 60 04/22/18 01:00 56 04/22/18 00:00 58 04/21/18 23:11 96.6 66 20 143/66 (91) 99 04/21/18 23:11 99 Room Air 04/21/18 23:00 65 04/21/18 22:00 64 04/21/18 21:43 98 Room Air 04/21/18 21:43 97.2 69 20 160/70 (100) 98 04/21/18 21:00 74 04/21/18 20:00 66 I/O 04/21/18 04/21/18 04/21/18 04/22/18 04/22/18 04/22/18 06:59 14:59 22:59 06:59 14:59 22:59 Intake Total 540 ml 240 ml 240 ml Output Total 700 ml 400 ml 700 ml 900 ml Balance -700 ml 140 ml -460 ml -660 ml Intake Oral 540 ml 240 ml 240 ml Output Urine Total 700 ml 400 ml 700 ml 900 ml # Voids 3 2 # Bowel Movements 1 1 Result Diagram: 04/22/18 0543 04/22/18 0543 Objective Remarks GENERAL: On exam, the patient is alert. HEENT: Unremarkable. Eyes without icterus. NECK: Without adenopathy or thyroid enlargement. CHEST: Decreased breath sounds at bases.Few wheezes bilaterally CARDIAC: PMI distant. S1, S2 audible, 1/6 ejection systolic murmur left sternal border. ABDOMEN: Lax. Bowel sounds audible. EXTREMITIES: 2+ edema.Reflexes 1 + Assessment and Plan Assessment and Plan IMPRESSION: 1. Shortness of breath, improved. 2. Chronic obstructive pulmonary disease on bronchodilators. 3. Diastolic congestive heart failure. 4. Coronary artery disease. 5. Status post transcatheter aortic valve replacement. 6. Chronic kidney disease. 7. Hypertension. 8. Status post cerebrovascular accident. Plan : 1. Wean O2 to keep sat >92. 2. Nebs qid , duoneb PRN 3. Continue lasix 40 mg daily. 4. CXR BMP in am 5. Symbicort 160/4.5 mcg , 1 puff bid 6. Continue prednisone 20 mg bid and taper Nella Kurtz MD Apr 22, 2018 19:40
[2018-04-22] MEDS: INSULIN DETEMIR 100 UNITS/ML VIAL SQ SCH (21:00)
[2018-04-23] VITALS (31 sets, daily range): BP systolic 129–151; BP diastolic 53–64; PULSE 49–92; RESP 15–24; TEMP 97.5–99; O2SAT 96–99
--- NOTE | 2018-04-23 06:01 | RADRPT ---
EXAM DATE: 04/23/2018 5:58 AM EDT AGE/SEX: 77 years / Male INDICATIONS: Shortness of breath, possible pneumothorax. CLINICAL DATA: This is the patient's subsequent encounter. Patient reports that signs and symptoms h ave been present for 4 - 6 days and indicates a pain score of 0/10. MEDICAL/SURGICAL HISTORY: . Chronic obstructive pulmonary disease. Crohn's disease CABG. TAVR COMPARISON: [facility] [place], CHEST SINGLE AP, 04/17/2018. . FINDINGS: Single AP view the chest. Median sternotomy wires are present. Mild patchy atelectasis or scarring at left lung base unchanged along with mild blunting of left costophrenic sulcus. Cardiomediastinal lashell houette unchanged. No evidence of pneumothorax. CONCLUSION: No significant interval change. Mild left lung base scarring or atelectasis and small left pleural ef fusion. Electronically signed by: Yasmani Velazquez MD 04/23/2018 5:59 AM EDT
[2018-04-23 07:07] LABS: AUTOMATED NEUTROPHIL # 10.1 TH/MM3 (1.8-7.7); BASOPHIL % 0.1 % (0.0-2.0); EOSINOPHIL % 0.1 % (0.0-4.0); HEMATOCRIT 28.8 % (39.0-51.0); HEMOGLOBIN 9.7 GM/DL (13.0-17.0); LYMPH % 7.6 % (9.0-44.0); LYMPHOCYTE # 0.9 TH/MM3 (1.0-4.8); MEAN CELL VOLUME 87.2 FL (80.0-100.0); MEAN CORPUSCULAR HEMOGLOBIN 29.3 PG (27.0-34.0); MEAN CORPUSCULAR HGB CONC 33.6 % (32.0-36.0); MEAN PLATELET VOLUME 9.4 FL (7.0-11.0); MONO % 4.2 % (0.0-8.0); MONOCYTE # 0.5 TH/MM3 (0-0.9); PLATELET COUNT 138 TH/MM3 (150-450); RED CELL DISTRIBUTION WIDTH 17.2 % (11.6-17.2); WHITE BLOOD COUNT 11.5 TH/MM3 (4.0-11.0)
[2018-04-23 07:13] LABS: ALBUMIN 2.4 GM/DL (3.4-5.0); AST (GOT) 22 U/L (15-37); BICARBONATE 29.3 MEQ/L (21.0-32.0); BLOOD UREA NITROGEN 49 MG/DL (7-18); CALCIUM 8.7 MG/DL (8.5-10.1); CHLORIDE 99 MEQ/L (98-107); CREATININE 1.88 MG/DL (0.60-1.30); GLOMERULAR FILTRATION RATE 35 ML/MIN (>89); GLUCOSE,RANDOM 126 MG/DL (74-106); SODIUM (NA) 139 MEQ/L (136-145)
[2018-04-23 07:19] LABS: ALKALINE PHOSPHATASE 91 U/L (45-117); ALT (GPT) 37 U/L (12-78); TOTAL BILIRUBIN ADULT 0.6 MG/DL (0.2-1.0); TOTAL PROTEIN 5.1 GM/DL (6.4-8.2)
[2018-04-23] MEDS: INSULIN ASPART SUPPLEMENTAL SCALE SQ SCH ×4 (08:39→21:00)
[2018-04-23] MEDS: TORSEMIDE 5 MG TAB PO SCH ×2 (09:10→17:35)
[2018-04-23] MEDS: FERROUS SULFATE 325 MG (65 MG ELEMENTAL IRON) TAB PO SCH (09:10)
[2018-04-23] MEDS: CHOLECALCIFEROL (VIT D3) 1000 UNIT TAB PO SCH (09:11)
[2018-04-23] MEDS: DOCUSATE SODIUM 100 MG CAP PO SCH ×2 (09:11→21:00)
[2018-04-23] MEDS: CLOPIDOGREL 75 MG TAB PO SCH (09:12)
[2018-04-23] MEDS: ATORVASTATIN 40 MG TAB PO SCH (09:12)
[2018-04-23] MEDS: DOCUSATE SODIUM 50 MG/SENNA 8.6 MG TAB PO SCH ×2 (09:12→21:00)
[2018-04-23] MEDS: MULTIVITAMINS/MINERALS THERAPEUTIC TAB PO SCH (09:12)
[2018-04-23] MEDS: guaiFENesin E.R. 600 MG TAB PO SCH ×2 (09:13→21:36)
[2018-04-23] MEDS: predniSONE 20 MG TAB PO SCH (09:13)
[2018-04-23] MEDS: ASPIRIN EC 81 MG TABEC PO SCH (09:13)
[2018-04-23] MEDS: METOPROLOL TARTRATE 25 MG TAB PO SCH ×2 (09:13→21:36)
[2018-04-23] MEDS: FAMOTIDINE 20 MG TAB PO SCH ×2 (09:13→21:36)
[2018-04-23] MEDS: LACTOBACILLUS ACIDOPHILUS TAB PO SCH ×3 (09:13→17:35)
[2018-04-23] MEDS: BUDESONIDE-FORMOTEROL 160/4.5 MCG INHALER INH SCH ×2 (09:14→21:37)
[2018-04-23] MEDS: SODIUM CHLORIDE 0.9% FLUSH 10 ML FLUSH IV FLUSH SCH ×2 (09:14→21:36)
[2018-04-23] MEDS: LEVOFLOXACIN 250 MG TAB PO SCH (09:14)
[2018-04-23] MEDS: MEGESTROL ACETATE SUSP 400 MG/10 ML CUP PO SCH (09:15)
[2018-04-23] MEDS: ENOXAPARIN SODIUM 30 MG/0.3 ML SYRINGE SQ SCH (15:06)
--- NOTE | 2018-04-23 15:09 | HHI.PR ---
Subjective Remarks Improved orientation. Renal function has shown improvement. This is status post IV infusion yesterday. His hemoglobin level has declined today. No new complaints from the patient. Objective Vital Signs Date Time Temp Pulse Resp B/P (MAP) Pulse Ox O2 Delivery O2 Flow Rate FiO2 04/23/18 14:00 63 04/23/18 13:00 78 04/23/18 12:00 68 04/23/18 11:25 97.6 76 16 139/59 (85) 99 04/23/18 11:22 92 Room Air 04/23/18 11:00 92 04/23/18 10:00 66 04/23/18 09:00 62 04/23/18 08:07 96 21 04/23/18 08:01 98.1 63 18 151/64 (93) 97 04/23/18 08:01 97 Room Air 04/23/18 08:00 66 04/23/18 07:00 61 04/23/18 06:00 64 04/23/18 05:00 60 04/23/18 04:00 58 04/23/18 03:12 96 Room Air 04/23/18 03:12 97.5 63 24 135/53 (80) 96 04/23/18 03:00 53 04/23/18 02:00 49 04/23/18 01:00 56 04/23/18 00:00 60 04/22/18 23:12 99 Room Air 04/22/18 23:12 97.5 63 24 140/63 (88) 99 04/22/18 23:00 65 04/22/18 22:00 60 04/22/18 21:00 68 04/22/18 20:00 66 04/22/18 19:58 98.4 70 24 170/65 (100) 99 04/22/18 19:58 99 Room Air 04/22/18 19:00 65 04/22/18 18:00 62 04/22/18 17:00 55 04/22/18 16:00 64 I/O 04/22/18 04/22/18 04/22/18 04/23/18 04/23/18 04/23/18 07:00 15:00 23:00 07:00 15:00 23:00 Intake Total 240 ml 565 ml 415 ml Output Total 700 ml 900 ml 500 ml Balance -460 ml -335 ml -85 ml Intake Oral 240 ml 240 ml 240 ml IV Total 325 ml 175 ml Output Urine Total 700 ml 900 ml 500 ml # Voids 2 3 # Bowel Movements 1 Result Diagram: 04/23/18 0505 04/23/18 0505 Objective Remarks GENERAL: NAD, A&Ox3 HEAD: Normocephalic. NECK: Supple, trachea midline. No lymphadenopathy. EYES: No scleral icterus. No injection or drainage. CARDIOVASCULAR: Regular rate and rhythm without murmurs, gallops, or rubs. RESPIRATORY: Breath sounds equal bilaterally. No accessory muscle use. GASTROINTESTINAL: Abdomen soft, non-tender, nondistended. MUSCULOSKELETAL: No cyanosis, or edema. SKIN: Warm and dry. NEURO: No focal neurological deficitis. A/P Problem List: (1) Aortic stenosis ICD Code: I35.0 - Nonrheumatic aortic (valve) stenosis (2) Diastolic CHF ICD Code: I50.30 - Unspecified diastolic (congestive) heart failure (3) COPD (chronic obstructive pulmonary disease) ICD Code: J44.9 - Chronic obstructive pulmonary disease, unspecified (4) Shortness of breath ICD Code: R06.02 - Shortness of breath Status: Acute Assessment and Plan 77 year old male with a recent TAVR and post TAVR CVA who was admitted to the hospital due to acute respiratory failure and hypoxia. Paramedics found his O2 sat around 83%. Improved orientation with discontinuation of Marinol. Continue Megace. Monitor renal function off IV hydration. Monitor hemoglobin levels to ensure no blood loss. Possible discharge tomorrow. Acute on chronic diastolic heart failure Improving Generalized weakness Resolving Continue physical therapy Asymptomatic candiduria Asymptomatic no treatment necessary. Acute respiratory failure COPD exacerbation Continue breathing treatments Continue Levaquin Continue prednisone Pulmonology following Wean off oxygen now Aortic stenosis Probable diastolic heart failure Status post TAVR by Dr. Alberto. No further cardiac investigation needed Continue diuresis Acute kidney injury Monitor for further improvement prior to discharge Baseline creatinine is 1.0 Diabetes mellitus type 2 Follow blood sugars Insulin sliding scale Diabetic diet Continue Levemir DVT prophylaxis Primitivo Rome MD Apr 23, 2018 15:09
[2018-04-23] MEDS: RESP: ALBUTEROL 2.5 MG/IPRATROPIUM 0.5 MG NEB (PRN) NEB (16:42)
--- NOTE | 2018-04-23 19:41 | HHI.PR ---
Subjective Remarks Awake and is better.Less wheezing Off O2. No complaints. Objective Vital Signs Date Time Temp Pulse Resp B/P (MAP) Pulse Ox O2 Delivery O2 Flow Rate FiO2 04/23/18 19:18 97.7 65 24 129/59 (82) 96 04/23/18 19:18 96 Room Air 04/23/18 18:25 66 04/23/18 17:13 73 04/23/18 16:11 99 Room Air 04/23/18 16:00 58 04/23/18 15:30 99.0 62 15 135/58 (83) 99 04/23/18 15:00 58 04/23/18 14:00 63 04/23/18 13:00 78 04/23/18 12:00 68 04/23/18 11:25 97.6 76 16 139/59 (85) 99 04/23/18 11:22 92 Room Air 04/23/18 11:00 92 04/23/18 10:00 66 04/23/18 09:00 62 04/23/18 08:07 96 21 04/23/18 08:01 98.1 63 18 151/64 (93) 97 04/23/18 08:01 97 Room Air 04/23/18 08:00 66 04/23/18 07:00 61 04/23/18 06:00 64 04/23/18 05:00 60 04/23/18 04:00 58 04/23/18 03:12 96 Room Air 04/23/18 03:12 97.5 63 24 135/53 (80) 96 04/23/18 03:00 53 04/23/18 02:00 49 04/23/18 01:00 56 04/23/18 00:00 60 04/22/18 23:12 99 Room Air 04/22/18 23:12 97.5 63 24 140/63 (88) 99 04/22/18 23:00 65 04/22/18 22:00 60 04/22/18 21:00 68 04/22/18 20:00 66 04/22/18 19:58 98.4 70 24 170/65 (100) 99 04/22/18 19:58 99 Room Air I/O 04/22/18 04/22/18 04/22/18 04/23/18 04/23/18 04/23/18 07:00 15:00 23:00 07:00 15:00 23:00 Intake Total 240 ml 565 ml 415 ml 1080 ml Output Total 700 ml 900 ml 500 ml 1290 ml Balance -460 ml -335 ml -85 ml -210 ml Intake Oral 240 ml 240 ml 240 ml 1080 ml IV Total 325 ml 175 ml Output Urine Total 700 ml 900 ml 500 ml 1290 ml # Voids 2 3 # Bowel Movements 1 0 Result Diagram: 04/23/18 0505 04/23/18 0505 Objective Remarks GENERAL: On exam, the patient is alert.No distress HEENT: Unremarkable. Eyes without icterus. NECK: Without adenopathy or thyroid enlargement. CHEST: Decreased breath sounds at bases.Few wheezes bilaterally CARDIAC: PMI distant. S1, S2 audible, 1/6 ejection systolic murmur left sternal border. ABDOMEN: Lax. Bowel sounds audible. EXTREMITIES: 1 + edema.Reflexes 1 + Assessment and Plan Assessment and Plan IMPRESSION: 1. Shortness of breath, improved. 2. Chronic obstructive pulmonary disease on bronchodilators. 3. Diastolic congestive heart failure. 4. Coronary artery disease. 5. Status post transcatheter aortic valve replacement. 6. Chronic kidney disease. 7. Hypertension. 8. Status post cerebrovascular accident. Plan : 1. Wean O2 to keep sat >92. 2. Nebs qid , duoneb PRN 3. Continue lasix 40 mg daily. 4. CBC BMP in am 5. Symbicort 160/4.5 mcg , 1 puff bid 6. Taper prednisone to 30 mg daily Nella uKrtz MD Apr 23, 2018 19:41
[2018-04-23] MEDS: INSULIN DETEMIR 100 UNITS/ML VIAL SQ SCH (21:00)
[2018-04-24] VITALS (15 sets, daily range): BP systolic 127–131; BP diastolic 57–76; PULSE 52–81; RESP 16–20; TEMP 97.9–99.1; O2SAT 98
[2018-04-24 06:59] LABS: AUTOMATED NEUTROPHIL # 9.5 TH/MM3 (1.8-7.7); BASOPHIL % 0.1 % (0.0-2.0); EOSINOPHIL # 0.1 TH/MM3 (0-0.4); HEMOGLOBIN 9.9 GM/DL (13.0-17.0); LYMPH % 12.2 % (9.0-44.0); LYMPHOCYTE # 1.5 TH/MM3 (1.0-4.8); MEAN CELL VOLUME 87.6 FL (80.0-100.0); MEAN CORPUSCULAR HEMOGLOBIN 29.7 PG (27.0-34.0); MEAN PLATELET VOLUME 10.8 FL (7.0-11.0); MONO % 6.8 % (0.0-8.0); MONOCYTE # 0.8 TH/MM3 (0-0.9); NEUT % 79.9 % (16.0-70.0); PLATELET COUNT 160 TH/MM3 (150-450); RED BLOOD COUNT 3.32 MIL/MM3 (4.50-5.90); RED CELL DISTRIBUTION WIDTH 17.1 % (11.6-17.2); WHITE BLOOD COUNT 11.9 TH/MM3 (4.0-11.0)
[2018-04-24 07:18] LABS: ALBUMIN 2.4 GM/DL (3.4-5.0); AST (GOT) 20 U/L (15-37); BICARBONATE 30.4 MEQ/L (21.0-32.0); BLOOD UREA NITROGEN 44 MG/DL (7-18); CALCIUM 8.6 MG/DL (8.5-10.1); CHLORIDE 98 MEQ/L (98-107); CREATININE 1.87 MG/DL (0.60-1.30); GLOMERULAR FILTRATION RATE 35 ML/MIN (>89); GLUCOSE,RANDOM 102 MG/DL (74-106); SODIUM (NA) 139 MEQ/L (136-145)
[2018-04-24 07:19] LABS: ALT (GPT) 37 U/L (12-78)
[2018-04-24 07:20] LABS: ALKALINE PHOSPHATASE 93 U/L (45-117); TOTAL BILIRUBIN ADULT 0.6 MG/DL (0.2-1.0); TOTAL PROTEIN 5.2 GM/DL (6.4-8.2)
[2018-04-24] MEDS: INSULIN ASPART SUPPLEMENTAL SCALE SQ SCH (08:00)
[2018-04-24] MEDS ORDERED: POTASSIUM CHLORIDE 10 MEQ CONTROLLED RELEASE TAB PO ONE (08:30)
[2018-04-24] MEDS: SODIUM CHLORIDE 0.9% FLUSH 10 ML FLUSH IV FLUSH SCH (09:00)
[2018-04-24] MEDS: DOCUSATE SODIUM 100 MG CAP PO SCH (09:00)
[2018-04-24] MEDS ORDERED: predniSONE 10 MG TAB PO SCH ×2 (09:00→21:00)
[2018-04-24] MEDS: DOCUSATE SODIUM 50 MG/SENNA 8.6 MG TAB PO SCH (09:00)
[2018-04-24] MEDS: BUDESONIDE-FORMOTEROL 160/4.5 MCG INHALER INH SCH (10:14)
[2018-04-24] MEDS: ATORVASTATIN 40 MG TAB PO SCH (10:15)
[2018-04-24] MEDS: CHOLECALCIFEROL (VIT D3) 1000 UNIT TAB PO SCH (10:15)
[2018-04-24] MEDS: LACTOBACILLUS ACIDOPHILUS TAB PO SCH (10:15)
[2018-04-24] MEDS: FERROUS SULFATE 325 MG (65 MG ELEMENTAL IRON) TAB PO SCH (10:16)
[2018-04-24] MEDS: LEVOFLOXACIN 250 MG TAB PO SCH (10:17)
[2018-04-24] MEDS: FAMOTIDINE 20 MG TAB PO SCH (10:18)
[2018-04-24] MEDS: CLOPIDOGREL 75 MG TAB PO SCH (10:18)
[2018-04-24] MEDS: METOPROLOL TARTRATE 25 MG TAB PO SCH (10:19)
[2018-04-24] MEDS: ASPIRIN EC 81 MG TABEC PO SCH (10:19)
[2018-04-24] MEDS: MEGESTROL ACETATE SUSP 400 MG/10 ML CUP PO SCH (10:19)
[2018-04-24] MEDS: MULTIVITAMINS/MINERALS THERAPEUTIC TAB PO SCH (10:25)
[2018-04-24] MEDS: guaiFENesin E.R. 600 MG TAB PO SCH (10:25)
[2018-04-24] MEDS: TORSEMIDE 5 MG TAB PO SCH (10:26)
[2018-04-24] MEDS ORDERED: PRED5TAB PO (11:42)
[2018-04-24] MEDS ORDERED: Megestrol Liq PO (11:42)
[2018-04-24] MEDS ORDERED: SPIRCAP INH (11:42)
--- NOTE | 2018-04-24 11:45 | HHI.DS ---
Discharge Summary Admission Date Apr 15, 2018 at 15:25 Discharge Date: Apr 24, 2018 Admitting Diagnosis short of breath,recent TAVR (1) S/P TAVR (transcatheter aortic valve replacement) ICD Code: Z95.2 - Presence of prosthetic heart valve Diagnosis: Principal (2) CAD (coronary artery disease) ICD Code: I25.10 - Atherosclerotic heart disease of [place] coronary artery without angina pectoris Diagnosis: Principal (3) Diastolic CHF ICD Code: I50.30 - Unspecified diastolic (congestive) heart failure Diagnosis: Principal (4) Acute on chronic kidney failure ICD Code: N17.9 - Acute kidney failure, unspecified; N18.9 - Chronic kidney disease, unspecified Diagnosis: Principal (5) COPD (chronic obstructive pulmonary disease) ICD Code: J44.9 - Chronic obstructive pulmonary disease, unspecified Diagnosis: Principal (6) CVA (cerebral vascular accident) ICD Code: I63.9 - Cerebral infarction, unspecified Diagnosis: Principal Procedures None. Brief History - From Admission Patient is a 77-year-old gentleman who was recently discharged from the hospital 2 days ago. Was supposed to go to a custodial facility. I am not sure if he went to the custodial facility. Or decided to just go home. He may have visited the custodial facility for a short period of time and then decided to leave patient obviously when he went home was not set up for oxygen since he was going to the custodial facility therefore when patient was short of breath he has no home oxygen therefore he presented to the hospital with O2 sat in the 83% percentage and was on BiPAP Patient will be admitted. Will consult case management will consult physical therapy will consult cardiology CBC/BMP: 04/24/18 0510 04/24/18 0510 Significant Findings Laboratory Tests Test 04/22/18 05:43 04/23/18 05:05 04/24/18 05:10 Red Blood Count 3.37 MIL/MM3 (4.50-5.90) 3.30 MIL/MM3 (4.50-5.90) 3.32 MIL/MM3 (4.50-5.90) Hemoglobin 10.2 GM/DL (13.0-17.0) 9.7 GM/DL (13.0-17.0) 9.9 GM/DL (13.0-17.0) Hematocrit 29.9 % (39.0-51.0) 28.8 % (39.0-51.0) 29.0 % (39.0-51.0) Red Cell Distribution Width 17.5 % (11.6-17.2) Neutrophils (%) (Auto) 87.7 % (16.0-70.0) 88.0 % (16.0-70.0) 79.9 % (16.0-70.0) Lymphocytes (%) (Auto) 7.7 % (9.0-44.0) 7.6 % (9.0-44.0) Neutrophils # (Auto) 9.4 TH/MM3 (1.8-7.7) 10.1 TH/MM3 (1.8-7.7) 9.5 TH/MM3 (1.8-7.7) Lymphocytes # (Auto) 0.8 TH/MM3 (1.0-4.8) 0.9 TH/MM3 (1.0-4.8) Blood Urea Nitrogen 48 MG/DL (7-18) 49 MG/DL (7-18) 44 MG/DL (7-18) Creatinine 2.02 MG/DL (0.60-1.30) 1.88 MG/DL (0.60-1.30) 1.87 MG/DL (0.60-1.30) Random Glucose 151 MG/DL (74-106) 126 MG/DL (74-106) Total Protein 5.6 GM/DL (6.4-8.2) 5.1 GM/DL (6.4-8.2) 5.2 GM/DL (6.4-8.2) Albumin 2.6 GM/DL (3.4-5.0) 2.4 GM/DL (3.4-5.0) 2.4 GM/DL (3.4-5.0) Estimat Glomerular Filtration Rate 32 ML/MIN (>89) 35 ML/MIN (>89) 35 ML/MIN (>89) White Blood Count 11.5 TH/MM3 (4.0-11.0) 11.9 TH/MM3 (4.0-11.0) Platelet Count 138 TH/MM3 (150-450) Potassium Level 3.1 MEQ/L (3.5-5.1) PE at Discharge GENERAL: Alert, oriented x 3 NAD. SKIN: Warm and dry. HEAD: Normocephalic. EYES: No scleral icterus. No injection or drainage. NECK: Supple, trachea midline. No JVD or lymphadenopathy. CARDIOVASCULAR: Regular rate and rhythm without murmurs, gallops, or rubs. RESPIRATORY: Moderate air entry. No appreciable wheezing. No accessory muscle use. GASTROINTESTINAL: Abdomen soft, non-tender, nondistended. MUSCULOSKELETAL: No cyanosis. Has 1+ edema in lower ext. BACK: Nontender without obvious deformity. No CVA tenderness. Hospital Course Mr. Chan is a 77-year-old male. He has a history of TAVR recently and came to the hospital due to shortness of breath. Etiology could have been related to surgery but he also had a component of diastolic CHF exacerbation. Other findings of concern had been anemia and acute kidney injury. He had encephalopathy also. Through time all of his conditions have slowly improved. He is diuresed. At this point he is stabilized and has been watched for the last 48 hours demonstrating stability in his renal function and hemoglobin levels though these have not trended back towards his baseline. He is medically stable and cleared for discharge to home today with home health PT at home. Treatments are adjusted as listed below. Pt Condition on Discharge: Stable Discharge Disposition: Disch w/ Home Health Serv Discharge Time: > 30 minutes Discharge Instructions DIET: Follow Instructions for: Heart Healthy Diet Activities you can perform: Regular-No Restrictions Other Activity Instructions: With assistance or PT Follow up Referrals: Cardiology - 3 Weeks @ [facility] PCP Follow-up New Medications: Nebulizer (Nebulizer) 1 Mis Mis EA .XX DIRECTED for Breathing Treatment, #1 0 Refills Prednisone (Prednisone) 5 Mg Tab 5 MG PO DAILY for Inflammation for 5 Days, #5 TAB 0 Refills Tiotropium Inh (Spiriva Handihaler) 18 Mcg Cap 18 MCG INH DAILY for COPD, #30 CAP 0 Refills 1 capsule = 18 mcg Clonazepam (Klonopin) 0.5 Mg Tab 0.5 MG PO Q8HR PRN for anxiety, #30 TAB Torsemide (Torsemide) 5 Mg Tab 10 MG PO BID@09,18 for Fluid, #60 TAB [Megestrol Liq] () 400 MG/10 ML SUSP 400 MG PO DAILY for Appetitie, #1 BOTTLE Changed Medications: [Albuterol-Ipratropium Neb] () 1 AMPULE NEBU 1 AMPULE NEB Q2HR NEB PRN for WHEEZING, #180 AMPULE 2 Refills (Changed from: [ Albuterol-Ipratropium Neb] (Duoneb Neb) 1 AMPULE NEBU 1 Ampule NEB Q2HR NEB PRN WHEEZING #180 AMPULE) Continued Medications: Albuterol 18 GM Inh (Ventolin Hfa 18 GM Inh) 90 Mcg/Act Aer 1 PUFF INH Q4H PRN for SHORTNESS OF BREATH, #1 INHALER 3 Refills (This prescription has been renewed) Aspirin DR (Aspirin DR) 81 Mg Tabdr 81 MG PO DAILY, TAB 0 Refills Budesonide-Formoterol Inh (Symbicort Inh) 160-4.5 Mcg/Act Aero 2 PUFF INH Q12HR for COPD, #1 INHALER 3 Refills (This prescription has been renewed) Cholecalciferol (Vitamin D3) 1,000 Unit Tab 2000 UNITS PO DAILY for Nutritional Supplement, #1 BOTTLE 0 Refills Clopidogrel (Plavix) 75 Mg Tab 75 MG PO DAILY for Blood Clot Prevention, #30 TAB 2 Refills Ferrous Sulfate (Ferosul) 325 Mg (65 Mg Iron) Tablet 325 MG PO DAILY for ANEMIA, #30 TAB Metoprolol Tartrate (Metoprolol Tartrate) 25 Mg Tab 25 MG PO Q12HR for Blood Pressure Management, #60 TAB Multiple Vitamins W/ Minerals (Thera M Plus) 1 Tab 1 TAB PO DAILY for multi vitamin, #30 TAB 2 Refills Pantoprazole (Protonix) 20 Mg Tab 20 MG PO DAILY for Manage Heartburn, #30 TAB Rosuvastatin (Crestor) 40 Mg Tab 40 MG PO DAILY for Cholesterol Management, #30 TAB 0 Refills Sitagliptin (Januvia) 100 Mg Tab 100 MG PO DAILY for Blood Sugar Management, #30 TAB 0 Refills Discontinued Medications: Amlodipine (Norvasc) 5 Mg Tab 5 MG PO DAILY for Blood Pressure Management, #30 TAB Docusate Sodium (Dok) 100 Mg Cap 100 MG PO BID for Constipation, #60 CAP 0 Refills Dronabinol (Marinol) 2.5 Mg Cap 2.5 MG PO BID@11,16 for [place], #60 CAP Fish Oil-Cholecalciferol ([place]-3 Fish Oil/Vitamin) 1,000-1,000 Mg Cap 1 CAP PO DAILY for Nutritional Supplement, CAP 0 Refills Lactobacillus Acidophilus (Lactinex) 1 Chew 1 TAB CHEW TID for Nutritional Supplement, #90 TAB 0 Refills Megestrol (Megestrol) 40 Mg Tab 40 MG PO Q12HR for [place], #60 TAB Oxycodone HCl/Acetaminophen (Oxycodone-Acetaminophen 5-325) 5 Mg-325 Mg Tablet 1 TAB PO Q4H PRN for PAIN SCALE 1 TO 5, #40 TAB 0 Refills Primitivo Nagy MD Apr 24, 2018 11:45
--- NOTE | 2018-04-24 13:08 | HHI.PR ---
Subjective Remarks Improved and has no wheezing Off O2. No complaints. Objective Vital Signs Date Time Temp Pulse Resp B/P (MAP) Pulse Ox O2 Delivery O2 Flow Rate FiO2 04/24/18 12:00 66 04/24/18 11:00 58 04/24/18 10:00 72 04/24/18 09:00 68 04/24/18 08:52 99.1 59 16 127/76 (93) 98 04/24/18 08:52 98 Room Air 04/24/18 08:00 68 04/24/18 07:00 59 04/24/18 06:00 52 04/24/18 05:00 81 04/24/18 04:00 56 04/24/18 03:31 97.9 59 20 131/57 (81) 98 04/24/18 03:31 98 Room Air 04/24/18 03:00 59 04/24/18 02:00 62 04/24/18 01:00 59 04/24/18 00:00 52 04/23/18 23:22 96 Room Air 04/23/18 23:22 97.8 59 24 132/59 (83) 96 04/23/18 23:00 58 04/23/18 22:00 63 04/23/18 21:00 62 04/23/18 20:00 65 04/23/18 19:18 97.7 65 24 129/59 (82) 96 04/23/18 19:18 96 Room Air 04/23/18 19:00 69 04/23/18 18:25 66 04/23/18 17:13 73 04/23/18 16:11 99 Room Air 04/23/18 16:00 58 04/23/18 15:30 99.0 62 15 135/58 (83) 99 04/23/18 15:00 58 04/23/18 14:00 63 I/O 04/23/18 04/23/18 04/23/18 04/24/18 04/24/18 04/24/18 07:00 15:00 23:00 07:00 15:00 23:00 Intake Total 415 ml 1080 ml 240 ml Output Total 500 ml 1290 ml 700 ml Balance -85 ml -210 ml -460 ml Intake Oral 240 ml 1080 ml 240 ml IV Total 175 ml Output Urine Total 500 ml 1290 ml 700 ml # Voids 3 2 # Bowel Movements 0 1 Result Diagram: 04/24/18 0510 04/24/18 0510 Objective Remarks GENERAL: On exam, the patient is alert.No distress HEENT: Unremarkable. Eyes without icterus. NECK: Without adenopathy or thyroid enlargement. CHEST: Decreased breath sounds at bases.Few wheezes bilaterally CARDIAC: PMI distant. S1, S2 audible, 1/6 ejection systolic murmur left sternal border. ABDOMEN: Lax. Bowel sounds audible. EXTREMITIES: 1 + edema.Reflexes 1 + Assessment and Plan Assessment and Plan IMPRESSION: 1. Shortness of breath, improved. 2. Chronic obstructive pulmonary disease on bronchodilators. 3. Diastolic congestive heart failure. 4. Coronary artery disease. 5. Status post transcatheter aortic valve replacement. 6. Chronic kidney disease. 7. Hypertension. 8. Status post cerebrovascular accident. Plan : 1. D/C o2 2. D/C Nebs and use ventolin HFA , 2 puffs TID PRN 3. Continue lasix 40 mg daily. 4. Home per Dr Nagy 5. Symbicort 160/4.5 mcg , 1 puff bid 6. Taper prednisone over [address] Dotson in 2 weeks Nella Kurtz MD Apr 24, 2018 13:08
[2018-04-24] MEDS ORDERED: HOSP BED1 (14:18)
== END 2018-04-24 13:27 | disposition home health service (06) | DRG 291 ==
LOC: NEPE 08:03 → NEDA 14:32 → OBSVTOIN 15:25 → HCIS 17:15
PROVIDERS: ADMIT Hospitalist; ATTEND Hospitalist
PROC: 5A09357 Assistance with Respiratory Ventilation, Less than 24 Consecutive Hours, Continuous Positive Airway Pressure (ICD-10-PCS; principal; 2018-04-15)
PROC: 5A09457 Assistance with Respiratory Ventilation, 24-96 Consecutive Hours, Continuous Positive Airway Pressure (ICD-10-PCS; 2018-04-17)
DX: I13.0 Hypertensive heart and chronic kidney disease with heart failure and stage 1 through stage 4 chronic kidney disease, or unspecified chronic kidney disease (principal); I50.33 Acute on chronic diastolic (congestive) heart failure; J96.01 Acute respiratory failure with hypoxia; N17.9 Acute kidney failure, unspecified; G93.40 Encephalopathy, unspecified; J44.1 Chronic obstructive pulmonary disease with (acute) exacerbation; E11.22 Type 2 diabetes mellitus with diabetic chronic kidney disease; E11.51 Type 2 diabetes mellitus with diabetic peripheral angiopathy without gangrene; I25.10 Atherosclerotic heart disease of native coronary artery without angina pectoris; N18.3 Chronic kidney disease, stage 3 (moderate); I25.5 Ischemic cardiomyopathy; E78.5 Hyperlipidemia, unspecified; F41.9 Anxiety disorder, unspecified; Z79.84 Long term (current) use of oral hypoglycemic drugs; Z82.49 Family history of ischemic heart disease and other diseases of the circulatory system; Z85.46 Personal history of malignant neoplasm of prostate; Z86.73 Personal history of transient ischemic attack (TIA), and cerebral infarction without residual deficits; Z87.891 Personal history of nicotine dependence; Z95.2 Presence of prosthetic heart valve
CPT/HCPCS: 36600; 71045; 71046; 80048; 80053; 81001; 82140; 82550; 82805; 82948; 83036; 83735; 83880; 84100; 84439; 84443; 84484; 85025; 87086; 93005; 94002; 94003; 94060; 94150; 94618; 94640; 94664; J1650; J1815; J1940; J2270; J2765; J2930; J7040; J7512; Q0167

== ENCOUNTER 2018-05-13 18:35 | Observation (INO) ==
--- NOTE | 2018-05-13 19:29 | ED ---
HPI General Chief complaint: Weakness Stated complaint: Constipation/Pooerintake Weakness Time Seen by Provider: 05/13/18 18:57 History of Present Illness HPI narrative: 77yo M with PMH of CAD s/p transcatheter aortic valve replacement , CHF, COPD, CVA presents to the ED with multiple complaints. Pt said for the last week he has not had a good bowel movement and feels pain in the rectum. Said he had a small bowel movement today but not very much. Pt has been having generalized weakness and feeling like he does not want to eat after just a few bites for 1 week. Denies any fever, chest pain, sob, n/v, urinary complaints, new focal weakness or numbness. Related Data Home Medications Medication Instructions Recorded Confirmed albuterol sulfate 2.5 mcg CONTINUOUS NEBULIZATION 05/13/18 05/13/18 PRN MDD 2.5 albuterol sulfate [Ventolin HFA] 90 mcg INHALATION PRN PRN 05/13/18 05/13/18 aspirin [Aspirin Low Dose] 81 mg PO DAILY 05/13/18 05/13/18 budesonide-formoterol [Symbicort] 2 puff INHALATION BID 05/13/18 05/13/18 clopidogrel 75 mg PO DAILY 05/13/18 05/13/18 ferrous sulfate [Iron (ferrous 325 mg PO DAILY 05/13/18 05/13/18 sulfate)] metoprolol tartrate 25 mg PO BID 05/13/18 05/13/18 or-vp-daxw-FA-herbal cmplx#190 25 mcg PO BID MDD 50 05/13/18 05/13/18 [Vitamin D3 Complete] ranitidine HCl 150 mg PO DAILY 05/13/18 05/13/18 rosuvastatin 40 mg PO DAILY 05/13/18 05/13/18 sitagliptin [Januvia] 100 mg PO DAILY 05/13/18 05/13/18 tiotropium bromide [Spiriva with 18 mcg INHALATION DAILY MDD 18 05/13/18 HandiHaler] torsemide 20 mg PO DAILY 05/13/18 05/13/18 Allergies Allergy/AdvReac Type Severity Reaction Status Date / Time Strkodm-Lzi-Rrm Reductase AdvReac Unknown MUSCLE Verified 05/13/18 18:43 Inhibitor ACHES Review of Systems ROS Unobtainable All other systems reviewed negative except as stated in HPI PMFSH Medical History Medical History Asthma (Acute) COPD (chronic obstructive pulmonary disease) (Acute) High cholesterol (Acute) Hypertension (Acute) Stroke (Acute) Social History Social History Substance History: No History of Abuse Smoking Status: Former smoker How Often Do You Have a Drink Containing Alcohol: Monthly or less Recent Travel in [facility] within the Last 8 Weeks: No Recent Out of Country Travel within the Last 8 Weeks: No Immunization History Tetanus Immunization: >5 Years Exam Narrative Exam Narrative: GENERAL: 77yo M not in distress. SKIN: Focused skin assessment warm/dry. HEAD: Atraumatic. Normocephalic. EYES: Pupils equal and round. No scleral icterus. No injection or drainage. ENT: No nasal bleeding or discharge. Mucous membranes pink and moist. NECK: Trachea midline. No JVD. CARDIOVASCULAR: Regular rate and rhythm. No murmur appreciated. RESPIRATORY: No accessory muscle use. Clear to auscultation. Breath sounds equal bilaterally. GASTROINTESTINAL: Abdomen soft, non-tender, nondistended. No rebound tenderness or guarding. RECTAL: Dark green stool, +Hemaprompt. MUSCULOSKELETAL: No obvious deformities. No clubbing. No cyanosis. No edema. NEUROLOGICAL: Awake and alert. No obvious cranial nerve deficits. Motor grossly within normal limits. PSYCHIATRIC: Appropriate mood and affect; insight and judgment normal. Course Initial Documented Vital Signs Temperature 97.7 F 05/13/18 18:43 Pulse Rate 96 H 05/13/18 18:43 Respiratory Rate 18 05/13/18 18:43 Blood Pressure 123/56 L 05/13/18 18:43 Pulse Oximetry 98 05/13/18 18:43 Last Documented Vital Signs Temperature 97.7 F 05/13/18 18:43 Pulse Rate 90 05/13/18 19:00 Respiratory Rate 18 05/13/18 19:00 Blood Pressure 141/73 H 05/13/18 19:00 Pulse Oximetry 95 05/13/18 19:00 Medical Decision Making [facility] Narrative Medical decision making narrative: 77yo M here with c/o generalized weakness, constipation and decreased appetite. Pt had recently been admitted for SOB and 04/24/18 and had testing that showed that he does not need home oxygen. He has followed up with marine meteorologist Dr. Sena. He is not sob right now and saturating at 95% on RA. Hemaprompt is positive. Pt given protonix. Labs reviewed, no leukocytosis. H/H low at 10.3/31.6 which is improved from 9.9/ 29.0 on 03/11/18. Mild hypokalemia at 3.1, replaced orally. BUN/creatinine elevated at 47/3.20 likely secondary to dehydration. This is more elevated than his previous BUN/creatinine of 44/1.87. Although hemoglobin is not very low, pt is symptomatic and feeling very weak. He has not had a colonoscopy in many years. I attempted manual disimpaction but pt was not able to tolerate it well so gave fleet enema instead. He has no abdominal tenderness on exam. Will admit him for GI bleed, and acute on chronic kidney disease. Given NS IVF for IV hydration. Discussed with Dr. Ram and accepted to his service. Differential Diagnosis Differential Diagnosis: GI bleed vs. symptomatic anemia vs. Failure to thrive vs. dehydration vs. constipation vs. electrolyte abnormality Lab Data Result diagrams: 05/13/18 19:41 05/13/18 19:41 Lab Results 05/13/18 05/13/18 Range/Units 19:41 19:41 CBC w Diff Auto diff final WBC 8.3 (4.0-11.0) th/mm3 RBC 3.52 L (4.50-5.90) mil/mm3 Hgb 10.3 L (13.0-17.0) gm/dL Hct 31.6 L (39.0-51.0) % MCV 89.8 (80.0-100.0) fL MCH 29.4 (27.0-34.0) pg MCHC 32.7 (32.0-36.0) % RDW 16.6 (11.6-17.2) % Plt Count 226 (150-450) th/mm3 MPV 9.6 (7.0-11.0) fL Neut % (Auto) 69.3 (16.0-70.0) % Lymph % (Auto) 15.6 (9.0-44.0) % [place] % (Auto) 9.1 H (0.0-8.0) % Eos % (Auto) 5.6 H (0.0-4.0) % Baso % (Auto) 0.4 (0.0-2.0) % Neut # (Auto) 5.7 (1.8-7.7) th/mm3 Lymph # (Auto) 1.3 (1.0-4.8) th/mm3 [place] # (Auto) 0.8 (0.0-0.9) th/mm3 Eos # (Auto) 0.5 H (0.0-0.4) th/mm3 Baso # (Auto) 0.0 (0.0-0.2) th/mm3 WBC Differential . Sodium 141 (136-145) meq/L Potassium 3.1 L (3.5-5.1) meq/L Chloride 102 (98-107) meq/L Carbon Dioxide 28.7 (21.0-32.0) meq/L Anion Gap 10 (5-15) meq/L BUN 47 H (7-18) mg/dL Creatinine 3.20 H (0.60-1.30) mg/dL Estimated GFR 19 L (>89) mL/min Random Glucose 170 H (74-106) mg/dL Calcium 9.6 (8.5-10.1) mg/dL Magnesium 2.0 (1.5-2.5) mg/dL Total Bilirubin 0.6 (0.2-1.0) mg/dL AST 37 (15-37) U/L ALT 39 (12-78) U/L Alkaline Phosphatase 127 H (45-117) U/L Total Protein 6.9 (6.4-8.2) g/dL Albumin 2.6 L (3.4-5.0) g/dL ECG Data EKG Prior to Arrival: No Attestation: I personally reviewed and interpreted this ECG as follows: Interpretation: NSR 86bpm. Normal axis. WA interval 178ms. No significant ST elevation or depression. Discharge Plan Discharge Disposition Patient Disposition: 30 Still Patient Physicians Team ED Provider: Camila Ortiz Primary Care Provider: Kalin Palma Rxs /Orders / Referrals /Forms Prescriptions: No Action clopidogrel 75 mg Tablet 75 mg PO DAILY RF: 0 aspirin [Aspirin Low Dose] 81 mg Tablet,Delayed Release (Dr/Ec) 81 mg PO DAILY RF: 0 torsemide 5 mg Tablet 20 mg PO DAILY RF: 0 ferrous sulfate [Iron (ferrous sulfate)] 325 mg (65 mg iron) Tablet 325 mg PO DAILY RF: 0 ranitidine HCl 150 mg Tablet 150 mg PO DAILY RF: 0 albuterol sulfate [Ventolin HFA] 90 mcg/actuation Hfa Aerosol Inhaler 90 mcg Inhalation PRN PRN (Reason: Shortness Of Breath) RF: 0 rosuvastatin 40 mg Tablet 40 mg PO DAILY RF: 0 metoprolol tartrate 25 mg Tablet 25 mg PO BID RF: 0 tiotropium bromide [Spiriva with HandiHaler] 18 mcg Capsule, W/Inhalation Device 18 mcg Inhalation DAILY MDD 18 RF: 0 albuterol sulfate 2.5 mg/0.5 mL Solution For Nebulization 2.5 mcg Continuous Nebulization PRN MDD 2.5 RF: 0 sitagliptin [Januvia] 100 mg Tablet 100 mg PO DAILY RF: 0 budesonide-formoterol [Symbicort] 80-4.5 mcg/actuation Hfa Aerosol Inhaler 2 puff INHALATION BID RF: 0 vx-of-qwjo-FA-herbal cmplx#190 [Vitamin D3 Complete] 18 mg iron-800 mcg-150 mg Tablet 25 mcg PO BID MDD 50 RF: 0 Status ED Status: Admitted Observation Patient
[2018-05-13 19:49] LABS: Baso % (Auto) 0.4 % (0.0-2.0); Eos # (Auto) 0.5 th/mm3 (0.0-0.4); Eos % (Auto) 5.6 % (0.0-4.0); Hematocrit 31.6 % (39.0-51.0); Hemoglobin 10.3 gm/dL (13.0-17.0); Lymph # (Auto) 1.3 th/mm3 (1.0-4.8); Lymph % (Auto) 15.6 % (9.0-44.0); Mean Corpuscular HGB Conc 32.7 % (32.0-36.0); Mean Corpuscular Hemoglobin 29.4 pg (27.0-34.0); Mean Corpuscular Volume 89.8 fL (80.0-100.0); Mean Platelet Volume 9.6 fL (7.0-11.0); Mono # (Auto) 0.8 th/mm3 (0.0-0.9); Mono % (Auto) 9.1 % (0.0-8.0); Neut # (Auto) 5.7 th/mm3 (1.8-7.7); Neut % (Auto) 69.3 % (16.0-70.0); Platelet Count 226 th/mm3 (150-450); Red Blood Count 3.52 mil/mm3 (4.50-5.90); Red Cell Distribution Width 16.6 % (11.6-17.2); White Blood Count 8.3 th/mm3 (4.0-11.0)
[2018-05-13 19:58] LABS: Chloride 102 meq/L (98-107); Potassium 3.1 meq/L (3.5-5.1); Sodium 141 meq/L (136-145)
[2018-05-13] MEDS ORDERED: Mineral Oil Enema 118 ML Bottle RECTAL ONE (19:58)
[2018-05-13 20:01] LABS: Albumin 2.6 g/dL (3.4-5.0); Anion Gap 10 meq/L (5-15); Blood Urea Nitrogen 47 mg/dL (7-18); Calcium 9.6 mg/dL (8.5-10.1); Carbon Dioxide 28.7 meq/L (21.0-32.0); Glucose,Random 170 mg/dL (74-106)
[2018-05-13 20:04] LABS: Aspartate Aminotransferase 37 U/L (15-37)
[2018-05-13 20:05] LABS: Alanine Aminotransferase 39 U/L (12-78); Glomerular Filtration Rate 19 mL/min (>89)
[2018-05-13 20:06] LABS: Total Protein 6.9 g/dL (6.4-8.2)
[2018-05-13 20:07] LABS: Alkaline Phosphatase 127 U/L (45-117)
[2018-05-13] MEDS ORDERED: Sodium Chlor 0.9% Inj 500 ML IV.SIG ONE (20:57)
[2018-05-13] MEDS ORDERED: Bisacodyl 10 MG Supp RECTAL PRN (20:58)
[2018-05-13] MEDS ORDERED: Pantoprazole Inj 80 MG in Sodium Chlor 0.9% Inj 100 ML IV.CONT SCH (21:00)
[2018-05-13 21:34] LABS: Hematocrit 28.7 % (39.0-51.0); Hemoglobin 9.5 gm/dL (13.0-17.0)
[2018-05-13 21:48] LABS: INR 1.2 Ratio; Prothrombin Time 12.5 sec (9.8-11.6)
[2018-05-14] MEDS: Sod Chloride 0.9% Inj 1,000 ML IV.CONT SCH ×3 (00:02→21:32)
[2018-05-14] MEDS: Metoprolol Tartrate 25 MG Tablet PO SCH ×4 (00:03→21:30)
[2018-05-14] MEDS: Senna/Docusate Sodium 8.6/50 MG Tablet PO SCH ×4 (00:03→20:16)
[2018-05-14] MEDS: Pantoprazole Inj 40 MG Vial IV.PUSH SCH ×3 (00:03→21:31)
[2018-05-14 01:47] LABS: % Iron Saturation 23.1 % (20-50)
[2018-05-14] MEDS: Budesonide-Formoterol 80/4.5 MCG 6.9 GM Inhaler INH SCH ×3 (04:35→21:30)
[2018-05-14 06:24] LABS: Chloride 108 meq/L (98-107); Potassium 3.2 meq/L (3.5-5.1); Sodium 144 meq/L (136-145)
[2018-05-14 06:27] LABS: Albumin 2.2 g/dL (3.4-5.0); Anion Gap 8 meq/L (5-15); Blood Urea Nitrogen 44 mg/dL (7-18); Calcium 8.8 mg/dL (8.5-10.1); Carbon Dioxide 27.7 meq/L (21.0-32.0); Glucose,Random 112 mg/dL (74-106)
[2018-05-14 06:30] LABS: Alanine Aminotransferase 33 U/L (12-78); Aspartate Aminotransferase 33 U/L (15-37)
[2018-05-14 06:31] LABS: Glomerular Filtration Rate 21 mL/min (>89)
[2018-05-14 06:33] LABS: Alkaline Phosphatase 109 U/L (45-117); Baso % (Auto) 0.2 % (0.0-2.0); Eos # (Auto) 0.4 th/mm3 (0.0-0.4); Eos % (Auto) 7.5 % (0.0-4.0); Hematocrit 25.4 % (39.0-51.0); Hemoglobin 8.6 gm/dL (13.0-17.0); Lymph # (Auto) 1.1 th/mm3 (1.0-4.8); Lymph % (Auto) 18.6 % (9.0-44.0); Mean Corpuscular Hemoglobin 30.4 pg (27.0-34.0); Mean Corpuscular Volume 89.5 fL (80.0-100.0); Mean Platelet Volume 9.2 fL (7.0-11.0); Mono # (Auto) 0.6 th/mm3 (0.0-0.9); Mono % (Auto) 10.1 % (0.0-8.0); Neut # (Auto) 3.6 th/mm3 (1.8-7.7); Neut % (Auto) 63.6 % (16.0-70.0); Platelet Count 172 th/mm3 (150-450); Red Blood Count 2.84 mil/mm3 (4.50-5.90); Red Cell Distribution Width 16.6 % (11.6-17.2); White Blood Count 5.7 th/mm3 (4.0-11.0)
[2018-05-14] MEDS: Tiotropium Bromide 18 MCG/ACT Inhaler INH SCH (09:47)
--- NOTE | 2018-05-14 10:09 | P.HP ---
History of Present Illness Primary Care Physician: Kalin Palma MD Chief Complaint: Unable to have a bowel movement History of Present Illness: 77-year-old male with known history of hypertension, ischemic cardiomyopathy, T AVR, chronic kidney disease stage III, diabetes, chronic objective pulmonary disease, history of left MCA stroke who presented the hospital because of difficulty in having a bowel movement. Patient indicates that he has had decreased appetite and not been eating and drinking that well lately. He has not been able to have a bowel movement so that is what prompted him come to the emergency department for evaluation. Patient had workup done emergency department and ER physician evaluated the patient and noticed him have constipation and impaction and tried to manually disimpact but was unsuccessful. After efforts of the speculum the patient she did do a Hemoccult which was positive. Patient does have recent history of upper endoscopy procedure on 04/09/18. Patient did undergo endoscopy at that time with stricture dilatation. Patient has not had a recent colonoscopy. Laboratory studies do indicate acute renal failure superimposed on chronic kidney disease likely secondary to poor p.o. intake and mild dehydration. After hydration renal functions have already improved. Patient has had a recent renal ultrasound which did not show any obstructive, unremarkable bilateral renal ultrasound. ER physician recommended that the patient be admitted for GI bleed because of the heme positive stool as well as the acute renal failure. Presently the patient is laying in bed. Denies any discomfort, pain. States that his last bowel movement was yesterday but just little amount. - Diagnosis (1) Acute renal failure superimposed on stage 3 chronic kidney disease (2) Heme positive stool (3) Constipation (4) Hypertension (5) Chronic obstructive pulmonary disease Review of Systems All other systems reviewed negative except as stated in HPI Constitutional: Reports other (Decreased appetite) Gastrointestinal: Reports constipation PMFSH - History History Provided By: Patient - Medical History Medical History: Medical History (Last Updated 05/14/18 @ 10:19 by JOSE M Cesar) Asthma COPD (chronic obstructive pulmonary disease) Chronic kidney disease, stage 3 Claudication Coronary artery disease Diabetes Hiatal hernia High cholesterol History of aortic stenosis History of ischemic left MCA stroke History of prostate cancer Hypertension Ischemic cardiomyopathy - Surgical History Surgical History: Surgical History (Last Updated 05/14/18 @ 10:24 by JOSE M Cesar) History of coronary artery bypass surgery History of esophagogastroduodenoscopy (EGD) Status post transcatheter aortic valve replacement - Tobacco History Second Hand Smoke Exposure: No Tobacco Use In Past 30 Days: No Smoking Status: Former smoker Number of Pack Years (if former smoker): 62 Smoking End Date: 8 years ago - Alcohol History How Often Do You Have a Drink Containing Alcohol: 2 to 4 times a month - Substance Use History Substance History: No History of Abuse - Travel History Recent Travel in the [place] Within the Last 8 Weeks: No Recent Travel Out of the Country Within the Last 8 Weeks: No - Immunization History Tetanus Immunization: >5 Years Medications and Allergies Active Medications: Active Medications Al Hydroxide/Mg Hydroxide (Milk Of Magnesia Liq) 30 ml PO Q12H PRN PRN Reason: Mild Constipation Albuterol (Ventolin Hfa Inh) 90 puff INH PRN PRN PRN Reason: Shortness Of Breath Aspirin (Ecotrin) 81 mg PO DAILY [facility] Atorvastatin Calcium (Lipitor) 80 mg PO DAILY [facility] Bisacodyl (Dulcolax Supp) 10 mg RECTAL DAILY PRN PRN Reason: SEVERE CONSITIPATION Budesonide/Formoterol Fumarate (Symbicort 80/4.5 Mcg Inh) 2 puff INH BID [facility] Last Admin: 05/14/18 09:47 Dose: 2 puff Pantoprazole Sodium 80 mg/ (Sodium Chloride) 100 mls @ 10 mls/hr IV.CONT CONT [facility] Sodium Chloride (Ns Inj) 1,000 mls @ 100 mls/hr IV.CONT .Q10H [facility] Last Admin: 05/14/18 09:47 Dose: 100 mls/hr Lactulose (Lactulose Liq) 30 ml PO DAILY PRN PRN Reason: SEVERE CONSITIPATION Metoprolol Tartrate (Lopressor) 25 mg PO BID [facility] Last Admin: 05/14/18 00:03 Dose: 25 mg Pantoprazole Sodium (Protonix Inj) 40 mg IV.PUSH BID [facility] Last Admin: 05/14/18 09:45 Dose: 40 mg Senna/Docusate Sodium (Padmini-Colace) 1 tab PO BID [facility] Last Admin: 05/14/18 00:03 Dose: 1 tab Sennosides (Senokot) 17.2 mg PO Q12H PRN PRN Reason: Moderate Constipation Sodium Chloride (Ns Flush) 2 ml IV.FLUSH BID [facility] Last Admin: 05/14/18 09:45 Dose: Not Given Sodium Chloride (Ns Flush) 2 ml IV.FLUSH PRN PRN PRN Reason: FLUSH AFTER USING IV ACCESS Tiotropium [place] (Spiriva 18 Mcg Inh) 18 mcg INH DAILY [facility] Last Admin: 05/14/18 09:47 Dose: 18 mcg Allergies Allergy/AdvReac Type Severity Reaction Status Date / Time Qfhgmkj-Kgd-Lle Reductase AdvReac Unknown MUSCLE Verified 05/13/18 18:43 Inhibitor ACHES Home Medications Medication Instructions Recorded Confirmed Type albuterol sulfate 2.5 mcg CONTINUOUS NEBULIZATION 05/13/18 05/13/18 History PRN MDD 2.5 albuterol sulfate [Ventolin HFA] 90 mcg INHALATION PRN PRN 05/13/18 05/13/18 History aspirin [Aspirin Low Dose] 81 mg PO DAILY 05/13/18 05/13/18 History budesonide-formoterol [Symbicort] 2 puff INHALATION BID 05/13/18 05/13/18 History clopidogrel 75 mg PO DAILY 05/13/18 05/13/18 History ferrous sulfate [Iron (ferrous 325 mg PO DAILY 05/13/18 05/13/18 History sulfate)] metoprolol tartrate 25 mg PO BID 05/13/18 05/13/18 History ew-ad-eqeq-FA-herbal cmplx#190 25 mcg PO BID MDD 50 05/13/18 05/13/18 History [Vitamin D3 Complete] ranitidine HCl 150 mg PO DAILY 05/13/18 05/13/18 History rosuvastatin 40 mg PO DAILY 05/13/18 05/13/18 History sitagliptin [Januvia] 100 mg PO DAILY 05/13/18 05/13/18 History tiotropium bromide [Spiriva with 18 mcg INHALATION DAILY MDD 18 05/13/18 History HandiHaler] torsemide 20 mg PO DAILY 05/13/18 05/13/18 History Exam Vital signs: Vital Signs 05/13/18 18:43 05/13/18 19:00 05/13/18 20:00 Temperature 97.7 F Pulse Rate 96 H 90 84 Respiratory Rate 18 18 Blood Pressure 123/56 L 141/73 H 126/57 L Pulse Oximetry 98 95 94 L 05/13/18 21:19 05/13/18 22:20 05/13/18 23:20 Temperature Pulse Rate 84 Respiratory Rate 18 22 18 Blood Pressure 142/61 H 138/60 146/59 H Pulse Oximetry 94 L 96 96 05/14/18 00:11 05/14/18 00:50 05/14/18 01:17 Temperature 99.3 F Pulse Rate 82 77 80 Respiratory Rate 18 16 Blood Pressure 147/58 H 150/67 H Pulse Oximetry 95 94 L 05/14/18 04:00 05/14/18 08:28 Temperature 98.6 F 96.5 F L Pulse Rate 76 75 Respiratory Rate 16 20 Blood Pressure 159/70 H 146/66 H Pulse Oximetry 97 99 Intake & Output 05/13/18 05/14/18 05/14/18 18:59 06:59 18:59 Intake Total 1000 / 1000 Output Total 175 / 175 Balance -175 / -175 1000 / 1000 Weight 57.4 kg 58 kg Intake: IV 1000 / 1000 NS Inj 1,000 ML @ 100 mls/hr IV 1000 / 1000 .CONT .Q10H RAÚL Rx#:[id number] Output: Urine 175 / 175 Narrative: GENERAL: Well-developed, cachectic, in no acute distress. alert and orientated HEENT: Head is normocephalic without any lesions or masses noted. Facial features are symmetric. Eyes: Extraocular muscles are intact. Conjunctivae were clear. Oropharyngeal: Pharynx without any erythema edema. Tongue is midline without deviation. Buccal mucosa is moist without any masses or lesions NECK: Supple without any masses. Trachea midline no deviation. No JVD, no bruits are appreciated CARDIAC: Regular rhythm, regular rate. S1/S2 are heard. No murmurs gallops or rubs. LUNGS: Clear to auscultation bilaterally. No wheeze, rhonchi or rales. No use of accessory muscles on inspiration or expiration. ABDOMEN: Soft, nontender. Nondistended. Bowel sounds heard in all 4 quadrants. No organomegaly or masses. Negative rebound, negative guarding EXTREMITIES: No edema, pulses are equal bilaterally. No cyanosis or clubbing NEUROLOGY: Mood and affect appear appropriate. Patient does have expressive dysphasia, slurred speech muscle strength 5/5 in upper and lower extremities bilaterally. Deep tendon reflexes are 2+ in upper and lower extremities bilaterally. Results - Labs CBC & Chem 7: 05/14/18 05:00 07/05/18 05:00 Labs: Laboratory Results - last 24 hr 05/13/18 05/13/18 05/13/18 19:41 19:41 19:41 CBC w Diff Auto diff final WBC 8.3 RBC 3.52 L Hgb 10.3 L Hct 31.6 L MCV 89.8 MCH 29.4 MCHC 32.7 RDW 16.6 Plt Count 226 MPV 9.6 Neut % (Auto) 69.3 Lymph % (Auto) 15.6 [place] % (Auto) 9.1 H Eos % (Auto) 5.6 H Baso % (Auto) 0.4 Neut # (Auto) 5.7 Lymph # (Auto) 1.3 [place] # (Auto) 0.8 Eos # (Auto) 0.5 H Baso # (Auto) 0.0 WBC Differential . PT INR Sodium 141 Potassium 3.1 L Chloride 102 Carbon Dioxide 28.7 Anion Gap 10 BUN 47 H Creatinine 3.20 H Estimated GFR 19 L Random Glucose 170 H Calcium 9.6 Magnesium 2.0 Iron TIBC % Saturation Ferritin Total Bilirubin 0.6 AST 37 ALT 39 Alkaline Phosphatase 127 H B-Natriuretic Peptide 409 H Total Protein 6.9 Albumin 2.6 L 05/13/18 05/13/18 05/13/18 19:41 21:14 21:14 CBC w Diff WBC RBC Hgb 9.5 L Hct 28.7 L MCV MCH MCHC RDW Plt Count MPV Neut % (Auto) Lymph % (Auto) [place] % (Auto) Eos % (Auto) Baso % (Auto) Neut # (Auto) Lymph # (Auto) [place] # (Auto) Eos # (Auto) Baso # (Auto) WBC Differential PT 12.5 H INR 1.2 Sodium Potassium Chloride Carbon Dioxide Anion Gap BUN Creatinine Estimated GFR Random Glucose Calcium Magnesium Iron 42 L TIBC 182 L % Saturation 23.1 Ferritin 586 H Total Bilirubin AST ALT Alkaline Phosphatase B-Natriuretic Peptide Total Protein Albumin 05/14/18 05/14/18 05:00 05:00 CBC w Diff Auto diff final WBC 5.7 RBC 2.84 L Hgb 8.6 L Hct 25.4 L MCV 89.5 MCH 30.4 MCHC 34.0 RDW 16.6 Plt Count 172 MPV 9.2 Neut % (Auto) 63.6 Lymph % (Auto) 18.6 [place] % (Auto) 10.1 H Eos % (Auto) 7.5 H Baso % (Auto) 0.2 Neut # (Auto) 3.6 Lymph # (Auto) 1.1 [place] # (Auto) 0.6 Eos # (Auto) 0.4 Baso # (Auto) 0.0 WBC Differential . PT INR Sodium 144 Potassium 3.2 L Chloride 108 H Carbon Dioxide 27.7 Anion Gap 8 BUN 44 H Creatinine 2.90 H Estimated GFR 21 L Random Glucose 112 H Calcium 8.8 D Magnesium Iron TIBC % Saturation Ferritin Total Bilirubin 0.5 AST 33 ALT 33 Alkaline Phosphatase 109 B-Natriuretic Peptide Total Protein 6.0 L D Albumin 2.2 L Caprini VTE Risk Assessment Caprini VTE Risk Assessment: Moderate/High Risk (score >= 2) Caprini Risk Assessment Model: Point Value = 1 Point Value = 2 Point Value = 3 Point Value = 5 Age 41-60 Minor surgery BMI > 25 kg/m2 Swollen legs Varicose veins or History of unexplained or recurrent spontaneous Oral contraceptives or hormone replacement Sepsis (< 1 month) Serious lung disease, including pneumonia (< 1 month) Abnormal pulmonary function Acute myocardial infarction Congestive heart failure (< 1 month) History of inflammatory bowel disease Medical patient at bed rest Age 61-74 Arthroscopic surgery Major open surgery (> 45 min) Laparoscopic surgery (> 45 min) Malignancy Confined to bed (> 72 hours) Immobilizing plaster cast Central venous access Age >= 75 History of VTE Family history of VTE Factor V Leiden Prothrombin [id number] Lupus anticoagulant Anticardiolipin antibodies Elevated serum homocysteine Heparin-induced thrombocytopenia Other congenital or acquired thrombophilia Stroke (< 1 month) Elective arthroplasty Hip, pelvis, or leg fracture Acute spinal cord injury (< 1 month) Prophylaxis Regimen: Total Risk Factor Score Risk Level Prophylaxis Regimen 0-1 Low Early ambulation 2 Moderate Order ONE of the following: *Sequential Compression Device (SCD) *Heparin 5000 units SQ BID 3-4 Higher Order ONE of the following medications: *Heparin 5000 units SQ TID *Enoxaparin/Lovenox 40 mg SQ daily (WT < 150 kg, CrCl > 30 mL/min) *Enoxaparin/Lovenox 30 mg SQ daily (WT < 150 kg, CrCl > 10-29 mL/min) *Enoxaparin/Lovenox 30 mg SQ BID (WT < 150 kg, CrCl > 30 mL/min) AND/OR *Sequential Compression Device (SCD) 5 or more Highest Order ONE of the following medications: *Heparin 5000 units SQ TID (Preferred with Epidurals) *Enoxaparin/Lovenox 40 mg SQ daily (WT < 150 kg, CrCl > 30 mL/min) *Enoxaparin/Lovenox 30 mg SQ daily (WT < 150 kg, CrCl > 10-29 mL/min) *Enoxaparin/Lovenox 30 mg SQ BID (WT < 150 kg, CrCl > 30 mL/min) AND *Sequential Compression Device (SCD) Assessment and Plan - Assessment (1) Acute renal failure superimposed on stage 3 chronic kidney disease Code(s): N17.9 - Acute kidney failure, unspecified; N18.3 - Chronic kidney disease, stage 3 (moderate) Status: Acute Plan: -Likely secondary to poor p.o. intake, already improved after IV hydration -Continue IV hydration -Monitor renal function -Avoid nephrotoxins (2) Heme positive stool Code(s): R19.5 - Other fecal abnormalities Status: Acute Plan: -Patient with constipation/obstipation -Heme positive stool done by emergency department physician during disimpaction -GI consulted for further recommendations -Patient with recent EGD done 04/09/18, which the patient had short stricture with dilatation, gastritis, duodenal inflammation -Start clear liquid diet (3) Constipation Code(s): K59.00 - Constipation, unspecified Status: Acute Plan: -Bowel regimen -Obtain abdominal x-ray to evaluate for obstipation/constipation (4) Hypertension Code(s): I10 - Essential (primary) hypertension Status: Acute Plan: -Home medication be continued (5) Chronic obstructive pulmonary disease Code(s): J44.9 - Chronic obstructive pulmonary disease, unspecified Status: Acute Plan: -Continue O2 sat mentation maintain O2 sats greater than 92% -Duo nebs as needed -Incentive spirometry - Plan DVT prevention -Sequential compression devices, avoid chemical prophylaxis secondary to heme positive stool
[2018-05-14 12:04] LABS: Bilirubin,Urine Negative (Negative); Clarity,Urine Clear (Clear); Color,Urine Yellow (Yellw/Straw); Glucose,Urine (UA) Negative (Negative); Leukocyte Esterase,Urine Negative (Negative); Nitrite,Urine Negative (Negative); Urobilinogen,Urine 0.2 mg/dL (Less than 2)
[2018-05-14 12:14] LABS: RBC,Urine 0-3 /hpf (0-3); Squamous Epithelial Cell,Urine 0-5 /hpf (0-5)
--- NOTE | 2018-05-14 12:41 | XR ---
EXAM DATE: 05/14/2018 11:43 AM EDT AGE/SEX: 77 years / Male INDICATIONS: Constipation x 1 week. CLINICAL DATA: This is the patient's initial encounter. Patient reports that signs and symptoms have been present for 1 week and indicates a pain score of 0/10. MEDICAL/SURGICAL HISTORY: Hiatal hernia. Carcinoma, prostatic. Stroke. hypertension. copd. c ad. Diabetes CABG. tavr COMPARISON: No prior exams available for comparison. FINDINGS: The abdominal bowel gas pattern is normal except mild constipation. No abnormal masses, calcificati ons, or organomegaly is seen. The osseous structures are unremarkable. CONCLUSION: Mild constipation. Surgical clips in the pelvis. No acute findings. Electronically signed by: Horace Montiel MD 05/14/2018 12:40 PM EDT
[2018-05-14 13:06] LABS: Hematocrit 25.2 % (39.0-51.0); Hemoglobin 8.6 gm/dL (13.0-17.0)
--- NOTE | 2018-05-14 19:30 | ECG ---
Date Performed: 05/13/2018 Time Performed: 19:46:02 PTAGE: 77 years EKG: Sinus rhythm NONSPECIFIC ST & T-WAVE ABNORMALITY POSSIBLE PRIOR INFERIOR WALL INFARCT BORDERLINE ECG PREVIOUS TRACING : 04/15/2018 14.39 Since the prior tracing,the lateral ST segment changes are new. The PVC's have resolved. The inferior Q-waves are more prominent. Clinical correlation is import ant. DOCTOR: Ericka Fernandez Interpretating Date/Time 05/14/2018 19:29:32
[2018-05-15] MEDS: Sod Chloride 0.9% Inj 1,000 ML IV.CONT SCH ×3 (04:20→22:45)
[2018-05-15 06:18] LABS: Potassium 3.3 meq/L (3.5-5.1)
[2018-05-15 06:23] LABS: Calcium 8.6 mg/dL (8.5-10.1); Carbon Dioxide 24.7 meq/L (21.0-32.0)
[2018-05-15 06:36] LABS: Baso % (Auto) 0.2 % (0.0-2.0); Eos # (Auto) 0.4 th/mm3 (0.0-0.4); Eos % (Auto) 7.4 % (0.0-4.0); Hematocrit 25.1 % (39.0-51.0); Hemoglobin 8.6 gm/dL (13.0-17.0); Lymph # (Auto) 1.3 th/mm3 (1.0-4.8); Lymph % (Auto) 22.4 % (9.0-44.0); Mean Corpuscular HGB Conc 34.4 % (32.0-36.0); Mean Corpuscular Hemoglobin 30.4 pg (27.0-34.0); Mean Corpuscular Volume 88.4 fL (80.0-100.0); Mean Platelet Volume 9.5 fL (7.0-11.0); Mono # (Auto) 0.6 th/mm3 (0.0-0.9); Mono % (Auto) 9.4 % (0.0-8.0); Neut # (Auto) 3.7 th/mm3 (1.8-7.7); Neut % (Auto) 60.6 % (16.0-70.0); Platelet Count 173 th/mm3 (150-450); Red Blood Count 2.84 mil/mm3 (4.50-5.90); Red Cell Distribution Width 16.4 % (11.6-17.2)
[2018-05-15] MEDS ORDERED: Bisacodyl 10 MG Supp RECTAL ONE (09:18)
--- NOTE | 2018-05-15 09:25 | P.PN ---
Subjective Interval history: 77-year-old male who is seen and examined today in follow-up on abdominal discomfort, constipation, obstipation, heme positive stool, acute renal failure. Patient laying in bed. Seems to be in some mild discomfort. Still not eating much. Family is very inquisitive about treatment plan. They are hoping to speak with the GI physician for further recommendations and management. Vital signs are stable, patient remains afebrile Physical Exam Vital signs: Vital Signs 05/14/18 09:47 05/14/18 12:04 05/14/18 13:39 Temperature 96.8 F L Pulse Rate 76 72 Respiratory Rate 20 Blood Pressure 140/68 Pulse Oximetry 99 96 05/14/18 15:16 05/14/18 20:00 05/14/18 20:40 Temperature 97 F L 99.2 F Pulse Rate 80 82 Respiratory Rate 20 18 Blood Pressure 159/69 H 155/68 H Pulse Oximetry 98 96 95 05/15/18 00:00 Temperature 98.7 F Pulse Rate 77 Respiratory Rate 21 Blood Pressure 153/66 H Pulse Oximetry 96 Intake & Output 05/14/18 05/15/18 05/15/18 18:59 06:59 18:59 Intake Total 2220 / 2220 2120 / 2120 Output Total 300 / 300 Balance 2220 / 2220 1820 / 1820 Weight 49.9 kg Intake: IV 1500 / 1500 1999 NS Inj 1,000 ML @ 100 mls/hr IV 1000 / 1000 1999 .CONT .Q10H RAÚL Rx#:[id number] Oral 720 / 720 120 / 120 Output: Urine 300 / 300 Other: # Voids 3 Narrative: GENERAL: Well-developed, cachectic, in no acute distress. alert and orientated HEENT: Head is normocephalic without any lesions or masses noted. Facial features are symmetric. Eyes: Extraocular muscles are intact. Conjunctivae were clear. NECK: Supple without any masses. Trachea midline no deviation. No JVD, CARDIAC: Regular rhythm, regular rate. S1/S2 are heard. No murmurs gallops or rubs. LUNGS: Clear to auscultation bilaterally. No wheeze, rhonchi or rales. No use of accessory muscles on inspiration or expiration. ABDOMEN: Soft, nontender. Nondistended. Bowel sounds heard in all 4 quadrants. No organomegaly or masses. Negative rebound, negative guarding EXTREMITIES: No edema, pulses are equal bilaterally. No cyanosis or clubbing NEUROLOGY: Mood and affect appear appropriate. Cranial nerves II through XII grossly intact. Moving all extremities, speech is clear Results - Labs CBC & Chem 7: 05/15/18 05:25 05/15/18 05:25 Laboratory Results - last 24 hr 05/13/18 05/14/18 05/15/18 11:50 12:50 05:25 CBC w Diff WBC RBC Hgb 8.6 L Hct 25.2 L MCV MCH MCHC RDW Plt Count MPV Neut % (Auto) Lymph % (Auto) Barren % (Auto) Eos % (Auto) Baso % (Auto) Neut # (Auto) Lymph # (Auto) Barren # (Auto) Eos # (Auto) Baso # (Auto) WBC Differential Sodium 147 H Potassium 3.3 L Chloride 111 H Carbon Dioxide 24.7 Anion Gap 11 BUN 36 H Creatinine 2.40 H Estimated GFR 26 L Random Glucose 88 Calcium 8.6 Ur Collection Type Clean catch Urine Color Yellow Urine Clarity Clear Urine pH 5.0 Ur Specific [place] 1.020 Urine Protein 100 H Urine Glucose (UA) Negative Urine Ketones Negative Urine Occult Blood Moderate H Urine Nitrate Negative Urine Bilirubin Negative Urine Urobilinogen 0.2 Ur Leukocyte Esterase Negative Urine RBC 0-3 Ur Squamous Epith Cells 0-5 Coarse Granular Casts 4-10 H Micro UA Comment Culture not ind Urine Culture Comments Culture not ind 05/15/18 05:25 CBC w Diff Auto diff final WBC 6.0 RBC 2.84 L Hgb 8.6 L Hct 25.1 L MCV 88.4 MCH 30.4 MCHC 34.4 RDW 16.4 Plt Count 173 MPV 9.5 Neut % (Auto) 60.6 Lymph % (Auto) 22.4 Barren % (Auto) 9.4 H Eos % (Auto) 7.4 H Baso % (Auto) 0.2 Neut # (Auto) 3.7 Lymph # (Auto) 1.3 Barren # (Auto) 0.6 Eos # (Auto) 0.4 Baso # (Auto) 0.0 WBC Differential . Sodium Potassium Chloride Carbon Dioxide Anion Gap BUN Creatinine Estimated GFR Random Glucose Calcium Ur Collection Type Urine Color Urine Clarity Urine pH Ur Specific [place] Urine Protein Urine Glucose (UA) Urine Ketones Urine Occult Blood Urine Nitrate Urine Bilirubin Urine Urobilinogen Ur Leukocyte Esterase Urine RBC Ur Squamous Epith Cells Coarse Granular Casts Micro UA Comment Urine Culture Comments - Imaging Impressions Abdomen X-Ray 05/14/18 00:00 CONCLUSION: Mild constipation. Surgical clips in the pelvis. No acute findings. Assessment and Plan - Assessment (1) Acute renal failure superimposed on stage 3 chronic kidney disease Code(s): N17.9 - Acute kidney failure, unspecified; N18.3 - Chronic kidney disease, stage 3 (moderate) Status: Acute Plan: -Likely secondary to poor p.o. intake, slowly improving with IV hydration -Continue IV hydration -Monitor renal function -Avoid nephrotoxins (2) Heme positive stool Code(s): R19.5 - Other fecal abnormalities Status: Acute Plan: -Patient with constipation/obstipation -Heme positive stool done by emergency department physician during disimpaction -Awaiting GI consulted for further recommendations -Patient with recent EGD done 04/09/18, which the patient had short stricture with dilatation, gastritis, duodenal inflammation -Continue clear liquid diet (3) Constipation Code(s): K59.00 - Constipation, unspecified Status: Acute Plan: -Bowel regimen -Abdominal x-ray does indicate constipation -Give MiraLAX, Dulcolax 1 today (4) Hypertension Code(s): I10 - Essential (primary) hypertension Status: Acute Plan: -Home medication be continued (5) Chronic obstructive pulmonary disease Code(s): J44.9 - Chronic obstructive pulmonary disease, unspecified Status: Acute Plan: -Continue O2 sat mentation maintain O2 sats greater than 92% -Duo nebs as needed -Incentive spirometry - Plan DVT prevention -Sequential compression devices, avoid chemical prophylaxis secondary to heme positive stool Discharge Planning: Discharge planning once cleared by GI
[2018-05-15] MEDS ORDERED: Polyethylene Glycol 3350 17 GM Packet PO ONE (10:00)
[2018-05-15] MEDS: Senna/Docusate Sodium 8.6/50 MG Tablet PO SCH ×2 (10:04→22:40)
[2018-05-15] MEDS: Metoprolol Tartrate 25 MG Tablet PO SCH ×2 (10:04→22:40)
[2018-05-15] MEDS: Pantoprazole Inj 40 MG Vial IV.PUSH SCH ×2 (10:05→22:40)
[2018-05-15] MEDS: Budesonide-Formoterol 80/4.5 MCG 6.9 GM Inhaler INH SCH ×2 (10:05→22:43)
[2018-05-15] MEDS: Tiotropium Bromide 18 MCG/ACT Inhaler INH SCH (10:05)
[2018-05-15] MEDS: Polyethylene Glycol 3350 255 GM Bottle PO ONE ×2 (10:06→14:03)
--- NOTE | 2018-05-15 17:14 | P.CONGI ---
History of Present Illness Chief complaint: GI BLEED, ACUTE ON CHRONIC KIDNEY FAILURE History of Present Illness: Patient is a 77-year-old male was admitted to the hospital with history of progressively worsening constipation proceeding to obstipation. He reports associated lower abdominal crampy pain which is mild to moderate in intensity with no specific radiation. Evaluation in the ER showed presence of fecal impaction. Attempted manual evacuation failed. Stools are found to be heme positive. He denies any history of heartburn dysphagia nausea vomiting diarrhea hematemesis melena hematochezia jaundice ascites edema and weight loss. Review of Systems Constitutional: Reports anorexia Gastrointestinal: Reports abdominal pain, Reports constipation PMFSH - History History Provided By: Patient - Medical History Medical History: Medical History (Last Updated 05/14/18 @ 10:19 by JOSE M Cesar) Asthma COPD (chronic obstructive pulmonary disease) Chronic kidney disease, stage 3 Claudication Coronary artery disease Diabetes Hiatal hernia High cholesterol History of aortic stenosis History of ischemic left MCA stroke History of prostate cancer Hypertension Ischemic cardiomyopathy - Surgical History Surgical History: Surgical History (Last Updated 05/14/18 @ 10:24 by JOSE M Cesar) History of coronary artery bypass surgery History of esophagogastroduodenoscopy (EGD) Status post transcatheter aortic valve replacement - Tobacco History Second Hand Smoke Exposure: No Tobacco Use In Past 30 Days: No Smoking Status: Former smoker Number of Pack Years (if former smoker): 62 Smoking End Date: 8 years ago - Alcohol History How Often Do You Have a Drink Containing Alcohol: 2 to 4 times a month - Substance Use History Substance History: No History of Abuse - Travel History Recent Travel in the [place] Within the Last 8 Weeks: No Recent Travel Out of the Country Within the Last 8 Weeks: No - Immunization History Tetanus Immunization: >5 Years Medications and Allergies Active Medications: Active Medications Al Hydroxide/Mg Hydroxide (Milk Of Amber Liq) 30 ml PO Q12H PRN PRN Reason: Mild Constipation Albuterol (Duoneb Neb (Prn)) 1 ampul NEB Q4HR NEB PRN PRN Reason: SHORTNESS OF BREATH/WHEEZING Aspirin (Ecotrin) 81 mg PO DAILY RAÚL Last Admin: 05/15/18 10:03 Dose: 81 mg Atorvastatin Calcium (Lipitor) 80 mg PO DAILY RAÚL Last Admin: 05/15/18 10:04 Dose: 80 mg Bisacodyl (Dulcolax Supp) 10 mg RECTAL DAILY PRN PRN Reason: SEVERE CONSITIPATION Budesonide/Formoterol Fumarate (Symbicort 80/4.5 Mcg Inh) 2 puff INH BID [facility] Last Admin: 05/15/18 10:05 Dose: 2 puff Sodium Chloride (Ns Inj) 1,000 mls @ 100 mls/hr IV.CONT .Q10H [facility] Last Infusion: 05/15/18 16:43 Dose: Infused Lactulose (Lactulose Liq) 30 ml PO DAILY PRN PRN Reason: SEVERE CONSITIPATION Metoprolol Tartrate (Lopressor) 25 mg PO BID [facility] Last Admin: 05/15/18 10:04 Dose: 25 mg Pantoprazole Sodium (Protonix Inj) 40 mg IV.PUSH BID [facility] Last Admin: 05/15/18 10:05 Dose: 40 mg Senna/Docusate Sodium (Padmini-Colace) 1 tab PO BID [facility] Last Admin: 05/15/18 10:04 Dose: 1 tab Sennosides (Senokot) 17.2 mg PO Q12H PRN PRN Reason: Moderate Constipation Sodium Chloride (Ns Flush) 2 ml IV.FLUSH BID [facility] Last Admin: 05/15/18 10:04 Dose: 2 ml Sodium Chloride (Ns Flush) 2 ml IV.FLUSH PRN PRN PRN Reason: FLUSH AFTER USING IV ACCESS Tiotropium [place] (Spiriva 18 Mcg Inh) 18 mcg INH DAILY [facility] Last Admin: 05/15/18 10:05 Dose: 18 mcg Allergies Allergy/AdvReac Type Severity Reaction Status Date / Time Fxyaeki-Jdk-Pza Reductase AdvReac Unknown MUSCLE Verified 05/13/18 18:43 Inhibitor ACHES Home Medications Medication Instructions Recorded Confirmed Type albuterol sulfate 2.5 mcg CONTINUOUS NEBULIZATION 05/13/18 05/13/18 History PRN MDD 2.5 albuterol sulfate [Ventolin HFA] 90 mcg INHALATION PRN PRN 05/13/18 05/13/18 History aspirin [Aspirin Low Dose] 81 mg PO DAILY 05/13/18 05/13/18 History budesonide-formoterol [Symbicort] 2 puff INHALATION BID 05/13/18 05/13/18 History clopidogrel 75 mg PO DAILY 05/13/18 05/13/18 History ferrous sulfate [Iron (ferrous 325 mg PO DAILY 05/13/18 05/13/18 History sulfate)] metoprolol tartrate 25 mg PO BID 05/13/18 05/13/18 History uj-bs-ehmi-FA-herbal cmplx#190 25 mcg PO BID MDD 50 05/13/18 05/13/18 History [Vitamin D3 Complete] ranitidine HCl 150 mg PO DAILY 05/13/18 05/13/18 History rosuvastatin 40 mg PO DAILY 05/13/18 05/13/18 History sitagliptin [Januvia] 100 mg PO DAILY 05/13/18 05/13/18 History tiotropium bromide [Spiriva with 18 mcg INHALATION DAILY MDD 18 05/13/18 History HandiHaler] torsemide 20 mg PO DAILY 05/13/18 05/13/18 History Exam Vital signs: Vital Signs 05/14/18 20:00 05/14/18 20:40 05/15/18 00:00 Temperature 99.2 F 98.7 F Pulse Rate 82 77 Respiratory Rate 18 21 Blood Pressure 155/68 H 153/66 H Pulse Oximetry 96 95 96 05/15/18 08:00 05/15/18 12:00 Temperature 98 F 98.5 F Pulse Rate 77 72 Respiratory Rate 16 18 Blood Pressure 144/65 H 156/70 H Pulse Oximetry 96 97 Intake & Output 05/14/18 05/15/18 05/15/18 18:59 06:59 18:59 Intake Total 2220 / 2220 2120 / 2120 1000 / 1000 Output Total 300 / 300 Balance 2220 / 2220 1820 / 1820 1000 / 1000 Weight 49.9 kg Intake: IV 1500 / 1500 2000 / 2000 1000 / 1000 NS Inj 1,000 ML @ 100 mls/hr IV 1000 / 1000 2000 / 2000 1000 / 1000 .CONT .Q10H RAÚL Rx#:[id number] Oral 720 / 720 120 / 120 Output: Urine 300 / 300 Other: # Voids 3 - Routine HEENT Exam Head: Present: normocephalic Eye: Present: EOMI, PERRL ENT: Present: mucous membranes moist - Routine Neck Exam Present: supple - Routine Respiratory Exam Present: wheezes, crackles, distant breath sounds - Routine Cardiovascular Exam Present: RRR, murmur - Routine Abdominal Exam Present: soft, normoactive bowel sounds, tenderness, distended Results - Labs CBC & Chem 7: 05/15/18 05:25 05/15/18 05:25 Labs: Laboratory Results - last 24 hr 05/15/18 05/15/18 05:25 05:25 CBC w Diff Auto diff final WBC 6.0 RBC 2.84 L Hgb 8.6 L Hct 25.1 L MCV 88.4 MCH 30.4 MCHC 34.4 RDW 16.4 Plt Count 173 MPV 9.5 Neut % (Auto) 60.6 Lymph % (Auto) 22.4 [place] % (Auto) 9.4 H Eos % (Auto) 7.4 H Baso % (Auto) 0.2 Neut # (Auto) 3.7 Lymph # (Auto) 1.3 [place] # (Auto) 0.6 Eos # (Auto) 0.4 Baso # (Auto) 0.0 WBC Differential . Sodium 147 H Potassium 3.3 L Chloride 111 H Carbon Dioxide 24.7 Anion Gap 11 BUN 36 H Creatinine 2.40 H Estimated GFR 26 L Random Glucose 88 Calcium 8.6 Assessment and Plan - Plan 1. Constipation likely due to colon inertia. 2. Possibility of underlying bowel obstruction needs further evaluation 3. Labs-TSH 4. CT scan of the abdomen and pelvis 5. MiraLAX 6. Fleets enemas 7. Bentyl 20 mg 4 times daily
[2018-05-16] MEDS: Sod Phosphate/Sod Biphosphate (Adult) Enema 133 ML Bottle RECTAL SCH ×4 (02:27→21:42)
[2018-05-16] MEDS: Polyethylene Glycol 3350 17 GM Packet PO SCH ×4 (02:28→22:47)
[2018-05-16 07:56] LABS: Hemoglobin 8.8 gm/dL (13.0-17.0); Mean Corpuscular HGB Conc 33.6 % (32.0-36.0); Mean Corpuscular Hemoglobin 30.1 pg (27.0-34.0); Mean Corpuscular Volume 89.6 fL (80.0-100.0); Mean Platelet Volume 9.7 fL (7.0-11.0); Platelet Count 195 th/mm3 (150-450); White Blood Count 14.6 th/mm3 (4.0-11.0)
[2018-05-16 08:11] LABS: Potassium 3.3 meq/L (3.5-5.1)
[2018-05-16 08:18] LABS: Calcium 8.4 mg/dL (8.5-10.1)
[2018-05-16 08:19] LABS: Carbon Dioxide 21.9 meq/L (21.0-32.0)
[2018-05-16 08:43] LABS: Eosinophils 4 % (0-4); Lymphocytes 16 % (9-44); Monocytes 3 % (0-8)
[2018-05-16 08:44] LABS: Ovalocytes 1+; Platelet Estimate Normal (Normal); Platelet Morphology Normal (Normal)
[2018-05-16] MEDS: Sod Chloride 0.9% Inj 1,000 ML IV.CONT SCH ×2 (08:48→19:01)
[2018-05-16] MEDS: Budesonide-Formoterol 80/4.5 MCG 6.9 GM Inhaler INH SCH ×2 (08:55→21:41)
[2018-05-16] MEDS: Metoprolol Tartrate 25 MG Tablet PO SCH ×2 (08:55→21:42)
[2018-05-16] MEDS: Tiotropium Bromide 18 MCG/ACT Inhaler INH SCH (08:55)
[2018-05-16] MEDS: Pantoprazole Inj 40 MG Vial IV.PUSH SCH ×2 (08:56→21:41)
--- NOTE | 2018-05-16 09:36 | P.PN ---
Subjective Interval history: Patient seen and examined today for follow-up on heme positive stool, constipation. Patient states that he is only had 2 small bowel movements yesterday. GI did evaluate the patient last night and recommending bowel prep to help with constipation/fecal impaction. CT scan has been ordered this morning, still awaiting results. Vital signs are stable, patient remains afebrile. Physical Exam Vital signs: Vital Signs 05/15/18 12:00 05/15/18 16:00 05/15/18 20:00 Temperature 98.5 F 98.5 F 97.1 F L Pulse Rate 72 74 74 Respiratory Rate 18 18 18 Blood Pressure 156/70 H 138/78 173/72 H Pulse Oximetry 97 98 05/16/18 00:00 05/16/18 01:40 05/16/18 08:00 Temperature 97 F L 97.3 F L Pulse Rate 72 76 Respiratory Rate 20 20 Blood Pressure 177/74 H 159/66 H Pulse Oximetry 97 95 Intake & Output 05/15/18 05/16/18 05/16/18 18:59 06:59 18:59 Intake Total 1700 / 1700 1000 / 1000 Output Total 200 / 200 300 / 300 Balance 1500 / 1500 -300 / -300 1000 / 1000 Intake: IV 1000 / 1000 1000 / 1000 NS Inj 1,000 ML @ 100 mls/hr IV 1000 / 1000 1000 / 1000 .CONT .Q10H RAÚL Rx#:[id number] Oral 600 / 600 Oral Supplement 100 / 100 Output: Urine 200 / 200 Urine Amount (Catheter) 300 / 300 Straight 300 / 300 Other: # Voids 3 Narrative: GENERAL: Well-developed, cachectic, in no acute distress. alert and orientated HEENT: Head is normocephalic without any lesions or masses noted. Facial features are symmetric. Eyes: Extraocular muscles are intact. Conjunctivae were clear. NECK: Supple without any masses. Trachea midline no deviation. No JVD, CARDIAC: Regular rhythm, regular rate. S1/S2 are heard. No murmurs gallops or rubs. LUNGS: Clear to auscultation bilaterally. No wheeze, rhonchi or rales. No use of accessory muscles on inspiration or expiration. ABDOMEN: Soft, nontender. Nondistended. Bowel sounds heard in all 4 quadrants. No organomegaly or masses. Negative rebound, negative guarding EXTREMITIES: No edema, pulses are equal bilaterally. No cyanosis or clubbing NEUROLOGY: Mood and affect appear appropriate. Cranial nerves II through XII grossly intact. Moving all extremities, speech is clear - Urinary Catheter Management Straight Cath placed during this visit: no Results - Labs CBC & Chem 7: 05/17/18 06:33 05/17/18 06:33 Laboratory Results - last 24 hr 05/16/18 05/16/18 05/16/18 06:55 06:55 06:55 CBC w Diff Slide review pending WBC 14.6 H RBC 2.90 L Hgb 8.8 L Hct 26.0 L MCV 89.6 MCH 30.1 MCHC 33.6 RDW 17.0 Plt Count 195 MPV 9.7 WBC Differential Manual diff final Seg Neuts % (Manual) 74 H Band Neuts % (Manual) 3 Lymphocytes % (Manual) 16 Monocytes % (Manual) 3 Eosinophils % (Manual) 4 Abs Neuts (Manual) 11.2 H Differential Comment . Platelet Estimate Normal Platelet Morphology Normal Ovalocytes 1+ H Sodium 146 H Potassium 3.3 L Chloride 113 H Carbon Dioxide 21.9 Anion Gap 11 BUN 32 H Creatinine 2.10 H Estimated GFR 31 L Random Glucose 64 L Calcium 8.4 L TSH 0.505 Assessment and Plan - Assessment (1) Acute renal failure superimposed on stage 3 chronic kidney disease Code(s): N17.9 - Acute kidney failure, unspecified; N18.3 - Chronic kidney disease, stage 3 (moderate) Status: Acute Plan: -Likely secondary to poor p.o. intake, slowly improving with IV hydration -Continue IV hydration -Monitor renal function -Avoid nephrotoxins (2) Heme positive stool Code(s): R19.5 - Other fecal abnormalities Status: Acute Plan: -Patient with constipation/obstipation -Heme positive stool done by emergency department physician during disimpaction -Awaiting further recommendations from gastroenterology -Patient with recent EGD done 04/09/18, which the patient had short stricture with dilatation, gastritis, duodenal inflammation -Continue clear liquid diet (3) Constipation Code(s): K59.00 - Constipation, unspecified Status: Acute Plan: -Continue bowel regimen -Abdominal x-ray does indicate constipation -CT scan ordered by employee relations assistant (4) Hypertension Code(s): I10 - Essential (primary) hypertension Status: Acute Plan: -Home medication be continued (5) Chronic obstructive pulmonary disease Code(s): J44.9 - Chronic obstructive pulmonary disease, unspecified Status: Acute Plan: -Continue O2 sat mentation maintain O2 sats greater than 92% -Duo nebs as needed -Incentive spirometry - Plan DVT prevention -Sequential compression devices, avoid chemical prophylaxis secondary to heme positive stool Discharge Planning: Discharge planning once cleared by GI
--- NOTE | 2018-05-16 09:41 | P.PNGI ---
Subjective Interval history: Patient is resting in the bed awake eyes open Family members with him for supportive care Family member states patient has had 2 formed hard stools over the past 12 hours. Chronic right-sided weakness Denies any nausea or vomiting but does note some abdominal soreness Hemoglobin currently 8.8 <Arely Christopher - Last Filed: 05/16/18 09:58> Physical Exam Vital signs: Vital Signs 05/15/18 12:00 05/15/18 16:00 05/15/18 20:00 Temperature 98.5 F 98.5 F 97.1 F L Pulse Rate 72 74 74 Respiratory Rate 18 18 18 Blood Pressure 156/70 H 138/78 173/72 H Pulse Oximetry 97 98 05/16/18 00:00 05/16/18 01:40 05/16/18 08:00 Temperature 97 F L 97.3 F L Pulse Rate 72 76 Respiratory Rate 20 20 Blood Pressure 177/74 H 159/66 H Pulse Oximetry 97 95 Intake & Output 05/15/18 05/16/18 05/16/18 18:59 06:59 18:59 Intake Total 1700 / 1700 1000 / 1000 Output Total 200 / 200 300 / 300 Balance 1500 / 1500 -300 / -300 1000 / 1000 Intake: IV 1000 / 1000 1000 / 1000 NS Inj 1,000 ML @ 100 mls/hr IV 1000 / 1000 1000 / 1000 .CONT .Q10H RAÚL Rx#:[id number] Oral 600 / 600 Oral Supplement 100 / 100 Output: Urine 200 / 200 Urine Amount (Catheter) 300 / 300 Straight 300 / 300 Other: # Voids 3 - Constitutional mild distress - Routine HEENT Exam Head: Present: normocephalic, atraumatic Eye: Present: conjunctivae pink ENT: Present: mucous membranes dry - Routine Neck Exam Present: supple - Routine Respiratory Exam Present: accessory muscle use (Patient he is using his inhaler) - Routine Cardiovascular Exam Present: RRR - Routine Abdominal Exam Present: soft (Flat, dull mild soreness to light palpation) - Routine Skin Exam Present: intact (Thin turgor), dry (Pale) - Routine Neurological Exam Present: alert, motor deficit (Chronic right-sided weakness) - Detailed Neurological Exam: Coma Scale Eye Opening: Spontaneous Verbal Response: Oriented - Routine Psychiatric Exam Present: normal affect - Urinary Catheter Management Straight Cath placed during this visit: no <Arely Christopher - Last Filed: 05/16/18 09:58> Vital signs: Vital Signs 05/15/18 12:00 05/15/18 16:00 05/15/18 20:00 Temperature 98.5 F 98.5 F 97.1 F L Pulse Rate 72 74 74 Respiratory Rate 18 18 18 Blood Pressure 156/70 H 138/78 173/72 H Pulse Oximetry 97 98 05/16/18 00:00 05/16/18 01:40 05/16/18 08:00 Temperature 97 F L 97.3 F L Pulse Rate 72 76 Respiratory Rate 20 20 Blood Pressure 177/74 H 159/66 H Pulse Oximetry 97 95 05/16/18 09:49 Temperature Pulse Rate Respiratory Rate Blood Pressure Pulse Oximetry 98 Intake & Output 05/15/18 05/16/18 05/16/18 18:59 06:59 18:59 Intake Total 1700 / 1700 1000 / 1000 Output Total 200 / 200 300 / 300 Balance 1500 / 1500 -300 / -300 1000 / 1000 Intake: IV 1000 / 1000 1000 / 1000 NS Inj 1,000 ML @ 100 mls/hr IV 1000 / 1000 1000 / 1000 .CONT .Q10H RAÚL Rx#:[id number] Oral 600 / 600 Oral Supplement 100 / 100 Output: Urine 200 / 200 Urine Amount (Catheter) 300 / 300 Straight 300 / 300 Other: # Voids 3 - Urinary Catheter Management Straight Cath placed during this visit: no <Natalia Padron - Last Filed: 05/16/18 10:25> Results - Labs CBC & Chem 7: 05/16/18 06:55 05/16/18 06:55 Laboratory Results - last 24 hr 05/16/18 05/16/18 05/16/18 06:55 06:55 06:55 CBC w Diff Slide review pending WBC 14.6 H RBC 2.90 L Hgb 8.8 L Hct 26.0 L MCV 89.6 MCH 30.1 MCHC 33.6 RDW 17.0 Plt Count 195 MPV 9.7 WBC Differential Manual diff final Seg Neuts % (Manual) 74 H Band Neuts % (Manual) 3 Lymphocytes % (Manual) 16 Monocytes % (Manual) 3 Eosinophils % (Manual) 4 Abs Neuts (Manual) 11.2 H Differential Comment . Platelet Estimate Normal Platelet Morphology Normal Ovalocytes 1+ H Sodium 146 H Potassium 3.3 L Chloride 113 H Carbon Dioxide 21.9 Anion Gap 11 BUN 32 H Creatinine 2.10 H Estimated GFR 31 L Random Glucose 64 L Calcium 8.4 L TSH 0.505 <Arely Christopher Danielle - Last Filed: 05/16/18 09:58> - Labs CBC & Chem 7: 05/16/18 06:55 05/16/18 06:55 Laboratory Results - last 24 hr 05/16/18 05/16/18 05/16/18 06:55 06:55 06:55 CBC w Diff Slide review pending WBC 14.6 H RBC 2.90 L Hgb 8.8 L Hct 26.0 L MCV 89.6 MCH 30.1 MCHC 33.6 RDW 17.0 Plt Count 195 MPV 9.7 WBC Differential Manual diff final Seg Neuts % (Manual) 74 H Band Neuts % (Manual) 3 Lymphocytes % (Manual) 16 Monocytes % (Manual) 3 Eosinophils % (Manual) 4 Abs Neuts (Manual) 11.2 H Differential Comment . Platelet Estimate Normal Platelet Morphology Normal Ovalocytes 1+ H Sodium 146 H Potassium 3.3 L Chloride 113 H Carbon Dioxide 21.9 Anion Gap 11 BUN 32 H Creatinine 2.10 H Estimated GFR 31 L Random Glucose 64 L Calcium 8.4 L TSH 0.505 <Natalia Padron - Last Filed: 05/16/18 10:25> Assessment and Plan - Plan 1. Constipation likely due to colon inertia. 2. Possibility of underlying bowel obstruction needs further evaluation 3. Labs-TSH 4. CT scan of the abdomen and pelvis 5. MiraLAX 6. Fleets enemas 7. Bentyl 20 mg 4 times daily 77-year-old male who presented to the hospital with constipation and possible fecal impaction and lower abdominal cramping. Currently on 05/16/2018 patient denies any nausea vomiting or diarrhea but does note generalized soreness in his abdomen CT of the abdomen without contrast is pending. Last abdominal x-rays did show mild constipation. Anemia noted per CBC currently 8.8, no obvious bleeding patient was heme positive on admission Plan Diet clear liquids , n.p.o. for this CT this a.m. Abdominal CT scan, Plan for colonoscopy in a.m. as long as bowel prep can be cleansed out, consent for colonoscopy ordered GoLYTELY prep this afternoon N.p.o. at midnight Giving BP meds this morning but holding fleets enema and MiraLAX until after CT scan spoke with the nurse. Supportive care Monitor labs with special attention to hemoglobin Further recommendations to follow This patient was seen per myself and Dr. Padron, this note was written on her behalf <Arely Christopher - Last Filed: 05/16/18 09:58> - Attending Attestation seen, examined agree with above await ct abdomen colonoscopy in am Discussed with family <Natalia Padron - Last Filed: 05/16/18 10:25>
[2018-05-16] MEDS ORDERED: Magnesium Citrate Liq 300 ML Bottle PO ONE (10:01)
[2018-05-16] MEDS ORDERED: Diatrizoate Meglum/Diatrizoate Sod Liq 9 ML UDC PO ONE (10:15)
--- NOTE | 2018-05-16 13:40 | CT ---
EXAM DATE: 05/16/2018 1:35 PM EDT AGE/SEX: 77 years / Male INDICATIONS: Constipation. CLINICAL DATA: This is the patient's initial encounter. Patient reports that signs and symptoms have been present for 2 days and indicates a pain score of 0/10. MEDICAL/SURGICAL HISTORY: Chronic obstructive pulmonary disease. Cerebrovascular disease. Car diovascular disease. Diabetes. Prostate cancer. Kidney disease. CABG. RADIATION DOSE: 13.29 CTDI (mGy) COMPARISON: No prior exams available for comparison. TECHNIQUE: Multiple contiguous axial images were obtained through the abdomen. Images were obtained using multiple row detector helical technique. Using automated exposure control and adjustment of the mA and/or kV according to patient size, radiation dose was kept as low as reasonably achievable to o btain optimal diagnostic quality images. DICOM format image data is available electronically for rev iew and comparison. FINDINGS: Lower Lungs: Minimal densities in the lower lobes there is bronchiectasis. Aortic valve replacement. Liver: The liver has a homogeneous density without space-occupying lesion. Cholecystectomy clips. The re is no dilation of the biliary tree. Spleen: Homogeneous density without enlargement. Pancreas: Unremarkable without mass or calcification. Kidneys: Normal in size and shape. No evidence of mass or hydronephrosis. Adrenal Glands: Unremarkable. Aorta: Atherosclerotic changes of the abdominal aorta without aneurysmal dilation. There is bulging of the infrarenal aorta Bowel/Mesentery: Copious amount stool in the rectum. Diverticulosis without diverticulitis. Abdominal Wall: Intact. Retroperitoneum: No evidence of adenopathy in the retrocrural, para-aortic, or deep pelvic regions. Bladder: Contours are smooth. Reproductive Organs: No abnormal masses or calcifications seen. Inguinal: The inguinal region is unremarkable without evidence of adenopathy on the left. Fat-contai malina right inguinal hernia. Bony Structures: Unremarkable. CONCLUSION: 1. Diverticulosis the colon without diverticulitis. 2. Copious metatarsal and the rectum. 3. Status post cholecystectomy. 4. Fat-containing right inguinal hernia. Electronically signed by: Marcus Pina MD 05/16/2018 1:38 PM EDT
[2018-05-16] MEDS: Lisinopril 5 MG Tablet PO SCH (14:39)
[2018-05-16] MEDS: Senna/Docusate Sodium 8.6/50 MG Tablet PO SCH ×2 (16:05→21:42)
[2018-05-17] MEDS: Sod Phosphate/Sod Biphosphate (Adult) Enema 133 ML Bottle RECTAL SCH ×3 (01:30→15:47)
[2018-05-17] MEDS: Polyethylene Glycol 3350 17 GM Packet PO SCH ×2 (01:32→05:18)
[2018-05-17] MEDS: Sod Chloride 0.9% Inj 1,000 ML IV.CONT SCH ×2 (05:17→17:46)
[2018-05-17 06:56] LABS: Baso % (Auto) 0.4 % (0.0-2.0); Eos # (Auto) 0.3 th/mm3 (0.0-0.4); Eos % (Auto) 5.9 % (0.0-4.0); Hematocrit 27.6 % (39.0-51.0); Hemoglobin 8.5 gm/dL (13.0-17.0); Lymph # (Auto) 1.1 th/mm3 (1.0-4.8); Lymph % (Auto) 19.8 % (9.0-44.0); Mean Corpuscular Hemoglobin 27.8 pg (27.0-34.0); Mean Corpuscular Volume 90.5 fL (80.0-100.0); Mono # (Auto) 0.4 th/mm3 (0.0-0.9); Mono % (Auto) 7.6 % (0.0-8.0); Neut # (Auto) 3.9 th/mm3 (1.8-7.7); Neut % (Auto) 66.3 % (16.0-70.0); Platelet Count 206 th/mm3 (150-450); Red Blood Count 3.05 mil/mm3 (4.50-5.90); Red Cell Distribution Width 16.6 % (11.6-17.2); White Blood Count 5.7 th/mm3 (4.0-11.0)
[2018-05-17 07:22] LABS: Mean Corpuscular HGB Conc 30.7 % (32.0-36.0)
[2018-05-17 07:38] LABS: Potassium 3.3 meq/L (3.5-5.1)
[2018-05-17 07:43] LABS: Calcium 8.1 mg/dL (8.5-10.1); Carbon Dioxide 22.3 meq/L (21.0-32.0)
--- NOTE | 2018-05-17 09:56 | GIPROC ---
[address], [address] COLONOSCOPY PROCEDURE REPORT EXAM DATE: 05/17/2018 PATIENT NAME: Jeanie Chan MR #: [id number] BIRTHDATE: 1940 ENDOSCOPIST: Natalia Padron MD ORDER #: [id number] VENEER JOINTER RETURNER: Daria Michaud and Lauren Rodriguez STATUS: inpatient INDICATIONS: The patient is a 77 yr old male here for a colonoscopy due to severe constipation PROCEDURE PERFORMED: Colonoscopy with polypectomy MEDICATIONS: None and Per Anesthesia. PREP QUALITY: fair PREP TYPE:Other: ESTIMATED BLOOD LOSS: None CONSENT: The patient understands the risks and benefits of the procedure and understands that these risks include, but are not limited to: sedation, allergic reaction, infection, perforation and/or bleeding. Alternative means of evaluation and treatment include, among others: physical exam, x-rays, and/or surgical intervention. The patient elects to proceed with this endoscopic procedure. medical equipment was checked for proper function. Hand hygiene and appropriate measures for infection prevention was taken. After the risks, benefits and alternatives of the procedure were thoroughly explained, Informed consent was verified, confirmed and timeout was successfully executed by the treatment team. A digital exam revealed external hemorrhoids The Pentax [id number] endoscope was introduced through the anus and advanced to the cecum, which was identified by both the appendix and ileocecal valve. The instrument was then slowly withdrawn as the colon was fully examined. COLON FINDINGS: Diverticulosis sigmoid,descending polyp midtransverse -8 mm-hot snare polypectomy internal hemorrhoids stool in rectum-could not be completely removad-no gross lesions. Retroflexed views revealed internal hemorrhoids and Retroflexed views revealed medium internal hemorrhoids The scope was then completely withdrawn from the patient and the procedure terminated. PROCEDURE WITHDRAWAL TIME:8minutes ADVERSE EVENTS: There were no complications. IMPRESSIONS: 1. Diverticulosis sigmoid,descending polyp midtransverse -8 mm-hot snare polypectomy internal hemorrhoids stool in rectum-could not be completely removad-no gross lesions 2. Retroflexed views revealed internal hemorrhoids 3. Retroflexed views revealed medium internal hemorrhoids 4. Revealed external hemorrhoids RECOMMENDATIONS: 1. Await biopsy results. Biopsy results will not be ready for 7-10 days. If you don't hear from us in two weeks, call our office for results. 2. Benefiber 2 tsp daily 3. Probiotics from any [employer] or health food store 4. Yearly rectal exams 5. Miralax daily lactulose bid nutritional consult gi will sign off call us as needed if dc fu office 2 weeks RECALL: Return 1 year Colonoscopy Natalia Padron MD eSigned: Natalia Padron MD 05/17/2018 9:56 AM cc: PATIENT NAME: Jeanie Chan MR#: [id number]
[2018-05-17] MEDS: Tiotropium Bromide 18 MCG/ACT Inhaler INH SCH (11:24)
[2018-05-17] MEDS: Budesonide-Formoterol 80/4.5 MCG 6.9 GM Inhaler INH SCH (11:25)
[2018-05-17] MEDS: Lisinopril 5 MG Tablet PO SCH (11:27)
[2018-05-17] MEDS: Metoprolol Tartrate 25 MG Tablet PO SCH (11:27)
[2018-05-17] MEDS: Pantoprazole Inj 40 MG Vial IV.PUSH SCH (11:28)
[2018-05-17] MEDS ORDERED: Lidocaine PF 1% Inj 5 ML Syringe INFILTRATN ONE (12:00)
[2018-05-17 12:04] VITALS: RESP 18; TEMP 96.7; O2SAT 99
[2018-05-17] MEDS: Senna/Docusate Sodium 8.6/50 MG Tablet PO SCH (12:25)
--- NOTE | 2018-05-17 13:45 | P.DS ---
Date of admission: 05/13/18 20:57 Primary care physician: Kalin Palma MD Attending physician on discharge: Brad Hyatt Brief History from admission: 77-year-old male with known history of hypertension, ischemic cardiomyopathy, T AVR, chronic kidney disease stage III, diabetes, chronic objective pulmonary disease, history of left MCA stroke who presented the hospital because of difficulty in having a bowel movement. Patient indicates that he has had decreased appetite and not been eating and drinking that well lately. He has not been able to have a bowel movement so that is what prompted him come to the emergency department for evaluation. Patient had workup done emergency department and ER physician evaluated the patient and noticed him have constipation and impaction and tried to manually disimpact but was unsuccessful. After efforts of the speculum the patient she did do a Hemoccult which was positive. Patient does have recent history of upper endoscopy procedure on 04/09/18. Patient did undergo endoscopy at that time with stricture dilatation. Patient has not had a recent colonoscopy. Laboratory studies do indicate acute renal failure superimposed on chronic kidney disease likely secondary to poor p.o. intake and mild dehydration. After hydration renal functions have already improved. Patient has had a recent renal ultrasound which did not show any obstructive, unremarkable bilateral renal ultrasound. ER physician recommended that the patient be admitted for GI bleed because of the heme positive stool as well as the acute renal failure. Presently the patient is laying in bed. Denies any discomfort, pain. States that his last bowel movement was yesterday but just little amount. DS: Diagnosis - Discharge Diagnosis (1) Acute renal failure superimposed on stage 3 chronic kidney disease Status: Acute (2) Heme positive stool Status: Acute (3) Constipation Status: Acute (4) Hypertension Status: Acute (5) Chronic obstructive pulmonary disease Status: Acute DS: Medications - Discharge Medications Prescriptions: sennosides-docusate sodium [Senna Plus] 1 tab PO BID #60 tab DS: Summary Hospital Course: 77-year-old male who originally presented to the hospital because of difficulty having bowel movement, constipation. As indicated that the patient had a decreased appetite and not been eating and drinking that much at home. Patient started developing constipation and difficulty in having bowel movement. Patient came to emergency department for evaluation and ER physician tried to manually disimpact the patient however was unsuccessful. She did check a Hemoccult which was positive. Because of those reasons the ER physician recommended patient be admitted for further evaluation and management. Patient was admitted to the hospital really did not eat that well during his stay in the hospital. He kept complaining of constipation. GI consultation was requested and they did evaluate the patient and recommended multiple bowel regimens which were successful. The patient did undergo colonoscopy; which did indicate diverticulosis the sigmoid colon a polyp mid transverse area. There was continued stool in the rectum. Patient had internal hemorrhoids and external hemorrhoids. Patient was seen at bedside with during his entire stay. She was concerned about him have bowel movement which she is much more comfortable about that at this time. However she still is concerned about his dietary habits. I did discuss with her that we could do a full evaluation with dietary consult, caloric intake, and appetite suppressant. She agreed to evaluate over the next couple meals if he continues to tolerate his food well she will follow-up with her primary medical doctor for further evaluation and management. Patient clinically stable this time. We will plan discharge if he tolerates dinner. - Time Spent with Patient Total time spent providing and/or coordinating discharge services: - Quality: VTE Deep Vein Thrombosis/Pulmonary Embolism Present on Admission: No Exam Vital signs: Vital Signs 05/16/18 16:00 05/16/18 20:57 05/16/18 23:08 Temperature 96 F L 96.7 F L Pulse Rate 74 88 Respiratory Rate 18 Blood Pressure 154/69 H 150/66 H Pulse Oximetry 95 97 93 L 05/17/18 01:11 05/17/18 08:00 05/17/18 08:42 Temperature 97.4 F L 97.1 F L 98.0 F Pulse Rate 72 78 81 Respiratory Rate 18 18 20 Blood Pressure 118/56 L 138/63 130/58 L Pulse Oximetry 94 L 97 05/17/18 10:00 05/17/18 10:07 05/17/18 10:15 Temperature 98.2 F Pulse Rate 68 85 79 Respiratory Rate 14 16 16 Blood Pressure 85/36 L 111/53 L 129/58 L Pulse Oximetry 96 98 98 05/17/18 12:00 Temperature 96.7 F L Pulse Rate 81 Respiratory Rate 18 Blood Pressure 160/70 H Pulse Oximetry 99 Intake & Output 05/16/18 05/17/18 05/17/18 18:59 06:59 18:59 Intake Total 1473 / 1473 3000 / 3000 200 / 200 Output Total 300 / 300 350 / 350 Balance 1173 / 1173 2650 / 2650 200 / 200 Weight 49.9 kg Intake: IV 1000 / 1000 1999 / 1999 200 / 200 NS Inj 1,000 ML @ 100 mls/hr IV 1000 / 1000 2000 / 1999 200 / 200 .CONT .Q10H RAÚL Rx#:[id number] Oral 473 / 473 1000 / 1000 Output: Urine 300 / 300 350 / 350 Other: Post Void Residual 328 # Bowel Movements 0 # Incontinent Bowel Movements 4 Narrative: GENERAL: Well-developed, cachectic, in no acute distress. alert and orientated HEENT: Head is normocephalic without any lesions or masses noted. Facial features are symmetric. Eyes: Extraocular muscles are intact. Conjunctivae were clear. NECK: Supple without any masses. Trachea midline no deviation. No JVD, CARDIAC: Regular rhythm, regular rate. S1/S2 are heard. No murmurs gallops or rubs. LUNGS: Clear to auscultation bilaterally. No wheeze, rhonchi or rales. No use of accessory muscles on inspiration or expiration. ABDOMEN: Soft, nontender. Nondistended. Bowel sounds heard in all 4 quadrants. No organomegaly or masses. Negative rebound, negative guarding EXTREMITIES: No edema, pulses are equal bilaterally. No cyanosis or clubbing NEUROLOGY: Mood and affect appear appropriate. Cranial nerves II through XII grossly intact. Moving all extremities, speech is clear Results Procedures completed during hospitalization: COLONOSCOPY 1. Diverticulosis sigmoid,descending polyp midtransverse -8 mm-hot snare polypectomy internal hemorrhoids stool in rectum-could not be completely removad-no gross lesions 2. Retroflexed views revealed internal hemorrhoids 3. Retroflexed views revealed medium internal hemorrhoids 4. Revealed external hemorrhoids Labs on day of discharge: Labs from last 24 hours 05/17/18 05/17/18 06:33 06:33 CBC w Diff Auto diff final WBC 5.7 D RBC 3.05 L Hgb 8.5 L Hct 27.6 L MCV 90.5 MCH 27.8 MCHC 30.7 L RDW 16.6 Plt Count 206 MPV 9.0 Neut % (Auto) 66.3 Lymph % (Auto) 19.8 [place] % (Auto) 7.6 Eos % (Auto) 5.9 H Baso % (Auto) 0.4 Neut # (Auto) 3.9 Lymph # (Auto) 1.1 [place] # (Auto) 0.4 Eos # (Auto) 0.3 Baso # (Auto) 0.0 WBC Differential . Differential Comment . Sodium 148 H Potassium 3.3 L Chloride 114 H Carbon Dioxide 22.3 Anion Gap 12 BUN 31 H Creatinine 1.90 H Estimated GFR 35 L Random Glucose 66 L Calcium 8.1 L - Impressions ITS Impressions Abdomen X-Ray 05/14/18 00:00 CONCLUSION: Mild constipation. Surgical clips in the pelvis. No acute findings. Abdomen/Pelvis CT 05/16/18 07:00 CONCLUSION: 1. Diverticulosis the colon without diverticulitis. 2. Copious metatarsal and the rectum. 3. Status post cholecystectomy. 4. Fat-containing right inguinal hernia. Discharge Plan - Discharge Disposition Patient Disposition: 01 Discharge Home - Discharge Condition Condition: Stable - Discharge Order Discharge Orders: Discharge Order (Routine); Ordered 05/17/18 Ordered By: Reed Sawyer - Physicians Team Primary Care Provider: Kalin Palma Attending Provider: Brad Hyatt Other Providers: Biju Chase MD
[2018-05-17 16:22] VITALS: BP 109/53; PULSE 75
[2018-05-18] MEDS ORDERED: Polyethylene Glycol 3350 17 GM Packet PO SCH (09:00)
== END 2018-05-17 18:55 | disposition home or self-care (01) ==
LOC: PHEDA 18:35 → PH3 18:35 → PHED 18:35 → PH3 05-14 00:19
PROVIDERS: ADMIT Internal Medicine; ATTEND Internal Medicine

== ENCOUNTER 2018-05-19 09:13 | Inpatient (IN) ==
--- NOTE | 2018-05-19 10:25 | ED ---
HPI General Chief Complaint: Respiratory Symptoms Stated Complaint: SOB/Evac Time Seen by Provider: 05/19/18 10:04 Source: patient Mode of arrival: EMS Limitations: physical limitation History of Present Illness 77 years old male complains of shortness of breath. Patient has history of COPD and CHF. Patient was admitted to [facility] and discharged recently. Patient's states the patient has chronic shortness of breath. Patient states that the shortness breath is worse this morning. Patient's reported no coughing congestion fever chills. Patient denies any chest pain. EMS was called. Patient had nebulizer treatment at home. Patient was given Solu-Medrol [address] IV [address] to ED. MD Complaint: shortness of breath Onset (ago): day(s) Context: recent illness Severity: moderate Consistency/Duration: constant Relieving factors: nothing Exacerbating factors: nothing Known history of: COPD and congestive heart failure Associated symptoms: denies other symptoms Treatment prior to arrival: other Related Data Home oxygen amount: none Home Medications Medication Instructions Recorded Confirmed albuterol sulfate 2.5 mcg CONTINUOUS NEBULIZATION 05/13/18 05/13/18 PRN MDD 2.5 albuterol sulfate [Ventolin HFA] 90 mcg INHALATION PRN PRN 05/13/18 05/13/18 aspirin [Aspirin Low Dose] 81 mg PO DAILY 05/13/18 05/13/18 budesonide-formoterol [Symbicort] 2 puff INHALATION BID 05/13/18 05/19/18 clopidogrel 75 mg PO DAILY 05/13/18 05/19/18 ferrous sulfate [Iron (ferrous 325 mg PO DAILY 05/13/18 05/13/18 sulfate)] metoprolol tartrate 25 mg PO BID 05/13/18 05/19/18 ur-ry-vnje-FA-herbal cmplx#190 25 mcg PO BID MDD 50 05/13/18 05/13/18 [Vitamin D3 Complete] ranitidine HCl 150 mg PO DAILY 05/13/18 05/19/18 rosuvastatin 40 mg PO DAILY 05/13/18 05/19/18 sitagliptin [Januvia] 100 mg PO DAILY 05/13/18 05/19/18 tiotropium bromide [Spiriva with 18 mcg INHALATION DAILY MDD 18 05/13/18 HandiHaler] torsemide 20 mg PO DAILY 05/13/18 05/19/18 Previous Rx's Medication Instructions Recorded sennosides-docusate sodium [Senna 1 tab PO BID #60 tab 05/17/18 Plus] Allergies Allergy/AdvReac Type Severity Reaction Status Date / Time [id number] Reductase AdvReac Unknown MUSCLE Verified 05/19/18 09:53 Inhibitor ACHES Review of Systems Except as stated in HPI: all other systems reviewed are negative [facility] Medical History Medical History Asthma (Acute) COPD (chronic obstructive pulmonary disease) (Acute) Chronic kidney disease, stage 3 (Acute) Claudication (Acute) Coronary artery disease (Acute) Diabetes (Acute) Hiatal hernia (Acute) High cholesterol (Acute) History of aortic stenosis (Acute) History of ischemic left MCA stroke (Acute) History of prostate cancer (Acute) Hypertension (Acute) Ischemic cardiomyopathy (Acute) Surgical History Surgical History History of coronary artery bypass surgery (Acute) History of esophagogastroduodenoscopy (EGD) (Acute) Status post transcatheter aortic valve replacement (Acute) Social History Social History Substance History: No History of Abuse Second Hand Smoke Exposure: No Smoking Status: Former smoker Tobacco Type: Cigarettes Number of Pack-Years (if former smoker): 62 Smoking End Date: 8 years ago How Often Do You Have a Drink Containing Alcohol: Never Recent Travel in [facility] within the Last 8 Weeks: No Recent Out of Country Travel within the Last 8 Weeks: No Immunization History Tetanus Immunization: <5 Years Hx Influenza Vaccine This Season: Yes Exam Narrative Exam Narrative: GENERAL: Well-nourished, well-developed patient. SKIN: Focused skin assessment warm/dry. HEAD: Normocephalic. EYES: No scleral icterus. No injection or drainage. NECK: Supple, trachea midline. No JVD or lymphadenopathy. CARDIOVASCULAR: Regular rate and rhythm without murmurs, gallops, or rubs. RESPIRATORY: Breath sounds equal bilaterally. No accessory muscle use. Patient had mild diffuse rhonchi at the bases. No wheezes. GASTROINTESTINAL: Abdomen soft, non-tender, nondistended. MUSCULOSKELETAL: No cyanosis, or edema. BACK: Nontender without obvious deformity. No CVA tenderness. Neurologic exam: Patient is awake and alert. Patient is weak and unable to get up from the bed on command. Course Initial Documented Vital Signs Temperature 98 F 05/19/18 09:56 Pulse Rate 89 05/19/18 09:56 Respiratory Rate 20 05/19/18 09:56 Blood Pressure 134/65 05/19/18 09:56 Pulse Oximetry 96 05/19/18 09:56 Last Documented Vital Signs Temperature 98 F 05/19/18 09:56 Pulse Rate 88 05/19/18 10:44 Respiratory Rate 20 05/19/18 09:56 Blood Pressure 134/65 05/19/18 09:56 Pulse Oximetry 97 05/19/18 10:44 Medical Decision Making MDM Narrative Medical decision making narrative: 77 years old male with complaints of shortness of breath. History of COPD and CHF. Lasix 40 mg IV given. Lab Data Lab results reviewed: Yes I reviewed the patient's lab results. Result diagrams: 05/19/18 10:15 05/19/18 10:15 Lab Results 05/19/18 05/19/18 05/19/18 Range/Units 10:15 10:15 10:15 WBC 9.3 (4.0-11.0) th/mm3 RBC 3.26 L (4.50-5.90) mil/mm3 Hgb 9.7 L (13.0-17.0) gm/dL Hct 29.3 L (39.0-51.0) % MCV 89.7 (80.0-100.0) fL MCH 29.8 (27.0-34.0) pg MCHC 33.2 (32.0-36.0) % RDW 17.7 H (11.6-17.2) % Plt Count 221 (150-450) th/mm3 MPV 9.8 (7.0-11.0) fL Neut % (Auto) 62.8 (16.0-70.0) % Lymph % (Auto) 25.5 (9.0-44.0) % [place] % (Auto) 7.3 (0.0-8.0) % Eos % (Auto) 3.9 (0.0-4.0) % Baso % (Auto) 0.5 (0.0-2.0) % Neut # (Auto) 5.9 (1.8-7.7) th/mm3 Lymph # (Auto) 2.4 (1.0-4.8) th/mm3 [place] # (Auto) 0.7 (0.0-0.9) th/mm3 Eos # (Auto) 0.4 (0.0-0.4) th/mm3 Baso # (Auto) 0.0 (0.0-0.2) th/mm3 WBC Differential . Differential Comment Auto diff final Puncture Site Patient Temperature O2 Saturation (90-100) % ABG pH (7.380-7.420) ABG pCO2 (38-42) mmHg ABG pO2 (61-120) mmHg ABG HCO3 (22-26) mmol/L ABG O2 Content (12.0-20.0) Vol % ABG Base Excess (-2-2) mmol/L ABG Methemoglobin (0-2) % Hemoglobin (12.0-16.0) G/DL Carboxyhemoglobin (0-4) % O2 Delivery Device Inspired O2 % Critical Value Sodium 146 H (136-145) meq/L Potassium 3.1 L (3.5-5.1) meq/L Chloride 112 H (98-107) meq/L Carbon Dioxide 22.2 (21.0-32.0) meq/L Anion Gap 12 (5-15) meq/L BUN 23 H (7-18) mg/dL Creatinine 1.84 H (0.60-1.30) mg/dL Estimated GFR 36 L (>89) mL/min Random Glucose 124 H (74-106) mg/dL Calcium 9.1 (8.5-10.1) mg/dL Total Bilirubin 0.5 (0.2-1.0) mg/dL AST 65 H (15-37) U/L ALT 57 (12-78) U/L Alkaline Phosphatase 165 H (45-117) U/L Total Creatine Kinase 713 H (39-308) U/L CK-MB (CK-2) 5.2 H (0.5-3.6) ng/mL CK-MB (CK-2) % 0.7 (0.0-4.0) % Troponin I 0.06 H (0.02-0.05) ng/mL B-Natriuretic Peptide 303 H (0-100) pg/mL Total Protein 6.2 L (6.4-8.2) g/dL Albumin 2.1 L (3.4-5.0) g/dL 05/19/18 Range/Units 11:21 WBC (4.0-11.0) th/mm3 RBC (4.50-5.90) mil/mm3 Hgb (13.0-17.0) gm/dL Hct (39.0-51.0) % MCV (80.0-100.0) fL MCH (27.0-34.0) pg MCHC (32.0-36.0) % RDW (11.6-17.2) % Plt Count (150-450) th/mm3 MPV (7.0-11.0) fL Neut % (Auto) (16.0-70.0) % Lymph % (Auto) (9.0-44.0) % [place] % (Auto) (0.0-8.0) % Eos % (Auto) (0.0-4.0) % Baso % (Auto) (0.0-2.0) % Neut # (Auto) (1.8-7.7) th/mm3 Lymph # (Auto) (1.0-4.8) th/mm3 [place] # (Auto) (0.0-0.9) th/mm3 Eos # (Auto) (0.0-0.4) th/mm3 Baso # (Auto) (0.0-0.2) th/mm3 WBC Differential Differential Comment Puncture Site Left brachial Patient Temperature 98.6 O2 Saturation 93 (90-100) % ABG pH 7.48 H (7.380-7.420) ABG pCO2 32 L (38-42) mmHg ABG pO2 68 (61-120) mmHg ABG HCO3 23 (22-26) mmol/L ABG O2 Content 18.8 (12.0-20.0) Vol % ABG Base Excess -0.1 (-2-2) mmol/L ABG Methemoglobin 0.4 (0-2) % Hemoglobin 14.5 (12.0-16.0) G/DL Carboxyhemoglobin 1.2 (0-4) % O2 Delivery Device Ra Inspired O2 21 % Critical Value No Sodium (136-145) meq/L Potassium (3.5-5.1) meq/L Chloride (98-107) meq/L Carbon Dioxide (21.0-32.0) meq/L Anion Gap (5-15) meq/L BUN (7-18) mg/dL Creatinine (0.60-1.30) mg/dL Estimated GFR (>89) mL/min Random Glucose (74-106) mg/dL Calcium (8.5-10.1) mg/dL Total Bilirubin (0.2-1.0) mg/dL AST (15-37) U/L ALT (12-78) U/L Alkaline Phosphatase (45-117) U/L Total Creatine Kinase (39-308) U/L CK-MB (CK-2) (0.5-3.6) ng/mL CK-MB (CK-2) % (0.0-4.0) % Troponin I (0.02-0.05) ng/mL B-Natriuretic Peptide (0-100) pg/mL Total Protein (6.4-8.2) g/dL Albumin (3.4-5.0) g/dL Imaging Data Attestation: I personally reviewed and interpreted this imaging study as follows : Radiologist's impression: ITS Impressions Chest X-Ray 05/19/18 10:19 CONCLUSION: 1. Stable parenchymal scarring the left base. Lungs are otherwise clear. 2. Stable postsurgical changes with intact median sternotomy wires and prior TAVR Discharge Plan Discharge Disposition Patient Disposition: 30 Still Patient Discharge Details Diagnosis: CHF exacerbation, Hypokalemia, CKD (chronic kidney disease) stage 3, GFR 30-59 ml/min Physicians Team ED Provider: Kwadwo Gordon Primary Care Provider: Kalin Palma Rxs /Orders / Referrals /Forms Prescriptions: No Action clopidogrel 75 mg Tablet 75 mg PO DAILY RF: 0 aspirin [Aspirin Low Dose] 81 mg Tablet,Delayed Release (Dr/Ec) 81 mg PO DAILY RF: 0 torsemide 5 mg Tablet 20 mg PO DAILY RF: 0 ferrous sulfate [Iron (ferrous sulfate)] 325 mg (65 mg iron) Tablet 325 mg PO DAILY RF: 0 ranitidine HCl 150 mg Tablet 150 mg PO DAILY RF: 0 albuterol sulfate [Ventolin HFA] 90 mcg/actuation Hfa Aerosol Inhaler 90 mcg Inhalation PRN PRN (Reason: Shortness Of Breath) RF: 0 rosuvastatin 40 mg Tablet 40 mg PO DAILY RF: 0 metoprolol tartrate 25 mg Tablet 25 mg PO BID RF: 0 tiotropium bromide [Spiriva with HandiHaler] 18 mcg Capsule, W/Inhalation Device 18 mcg Inhalation DAILY MDD 18 RF: 0 albuterol sulfate 2.5 mg/0.5 mL Solution For Nebulization 2.5 mcg Continuous Nebulization PRN MDD 2.5 RF: 0 sitagliptin [Januvia] 100 mg Tablet 100 mg PO DAILY RF: 0 budesonide-formoterol [Symbicort] 80-4.5 mcg/actuation Hfa Aerosol Inhaler 2 puff INHALATION BID RF: 0 tl-kf-cqxk-FA-herbal cmplx#190 [Vitamin D3 Complete] 18 mg iron-800 mcg-150 mg Tablet 25 mcg PO BID MDD 50 RF: 0 sennosides-docusate sodium [Senna Plus] 8.6-50 mg Tablet 1 tab PO BID Qty: 60 RF: 0 Status ED Status: With Doctor
--- NOTE | 2018-05-19 10:48 | XR ---
EXAM DATE: 05/19/2018 10:39 AM EDT AGE/SEX: 77 years / Male INDICATIONS: Short of breath and difficulty breathing for several days. CLINICAL DATA: This is the patient's initial encounter. Patient reports that signs and symptoms have been present for 2 days and indicates a pain score of 0/10. MEDICAL/SURGICAL HISTORY: . Asthma. COPD. Chronic kidney disease, stage 3. Coronary artery dise ase. Diabetes. Hiatal hernia. High cholesterol. History of aortic stenosis. History of ischemic left MCA stroke (Acute)History of prostate cancer (Acute)Hypertension (Acute)Ischemic cardiomyopathy (Acut e) . History of coronary artery bypass surgery. Status post transcatheter aortic valve replacement. COMPARISON: [facility], CHEST SINGLE AP, 04/23/2018. . FINDINGS: A single AP view of the chest demonstrates stable parietal scarring in the left base. Lungs are other salas clear. Minimal elevation of the left hemidiaphragm is stable. Heart size is normal. Findings of prior TAVR. Intact median sternotomy wires. No pneumothorax. Osseous structures are intact with some degenerative spurring of the dorsal spine. CONCLUSION: 1. Stable parenchymal scarring the left base. Lungs are otherwise clear. 2. Stable postsurgical changes with intact median sternotomy wires and prior TAVR Electronically signed by: Gene Pardo MD 05/19/2018 10:47 AM EDT
[2018-05-19 11:00] LABS: Baso % (Auto) 0.5 % (0.0-2.0); Eos # (Auto) 0.4 th/mm3 (0.0-0.4); Eos % (Auto) 3.9 % (0.0-4.0); Hematocrit 29.3 % (39.0-51.0); Hemoglobin 9.7 gm/dL (13.0-17.0); Lymph # (Auto) 2.4 th/mm3 (1.0-4.8); Lymph % (Auto) 25.5 % (9.0-44.0); Mean Corpuscular HGB Conc 33.2 % (32.0-36.0); Mean Corpuscular Hemoglobin 29.8 pg (27.0-34.0); Mean Corpuscular Volume 89.7 fL (80.0-100.0); Mean Platelet Volume 9.8 fL (7.0-11.0); Mono # (Auto) 0.7 th/mm3 (0.0-0.9); Mono % (Auto) 7.3 % (0.0-8.0); Neut # (Auto) 5.9 th/mm3 (1.8-7.7); Neut % (Auto) 62.8 % (16.0-70.0); Platelet Count 221 th/mm3 (150-450); Red Blood Count 3.26 mil/mm3 (4.50-5.90); Red Cell Distribution Width 17.7 % (11.6-17.2); White Blood Count 9.3 th/mm3 (4.0-11.0)
[2018-05-19 11:11] LABS: Alanine Aminotransferase 57 U/L (12-78); Albumin 2.1 g/dL (3.4-5.0); Anion Gap 12 meq/L (5-15); Aspartate Aminotransferase 65 U/L (15-37); Blood Urea Nitrogen 23 mg/dL (7-18); Calcium 9.1 mg/dL (8.5-10.1); Carbon Dioxide 22.2 meq/L (21.0-32.0); Chloride 112 meq/L (98-107); Glomerular Filtration Rate 36 mL/min (>89); Glucose,Random 124 mg/dL (74-106); Potassium 3.1 meq/L (3.5-5.1); Sodium 146 meq/L (136-145)
[2018-05-19 11:15] LABS: Alkaline Phosphatase 165 U/L (45-117); Creatine Kinase 713 U/L (39-308); Total Protein 6.2 g/dL (6.4-8.2); Troponin I 0.06 ng/mL (0.02-0.05)
[2018-05-19 11:28] LABS: CKMB Percent 0.7 % (0.0-4.0); Creatine Kinase MB 5.2 ng/mL (0.5-3.6)
[2018-05-19 11:31] LABS: ABG Base Excess -0.1 mmol/L (-2-2); ABG PCO2 32 mmHg (38-42); ABG PO2 68 mmHg (61-120)
[2018-05-19] MEDS ORDERED: Acetaminophen 325 MG Tablet PO PRN (13:52)
[2018-05-19] MEDS ORDERED: Bisacodyl 10 MG Supp RECTAL PRN (13:52)
[2018-05-19] MEDS ORDERED: Temazepam 15 MG Capsule PO PRN (13:52)
--- NOTE | 2018-05-19 14:42 | P.HPIM ---
History of Present Illness Service: [place] [facility]ist Primary Care Physician: Kalin Palma MD Chief Complaint: Shortness of breath, severe debility History of Present Illness: 77-year-old male with a medical history significant for COPD, chronic kidney disease, history of aortic valve replacement, diabetes, history of CVA with residual dysarthria with multiple hospitalization over the past couple of months related to his comorbid conditions. History obtained from the patient's at bedside. The patient presented again today after he was discharged 2 days ago for hospitalization related to constipation. He underwent colonoscopy which revealed diverticulosis. His constipation resolved. However the patient remained severely debilitated. His is unable to care for him at home. He is severely short of breath with any activities. He cannot even sit up on the bed by himself. Workup in the emergency room revealed a mildly elevated BNP, concern for CHF. - Diagnosis (1) Dyspnea on exertion (2) Elevated brain natriuretic peptide (BNP) level (3) Debility (4) Hypertension (5) Chronic obstructive pulmonary disease (6) Hypokalemia (7) CKD (chronic kidney disease) stage 3, GFR 30-59 ml/min (8) Hypernatremia Inpatient Certification: I certify that the inpatient services were ordered in accordance with Medicare regulations governing the order. This includes certification that hospital inpatient services are reasonable and necessary and in the case of services not specified as inpatient-only under 42 CFR 419.22(n), that they are appropriately provided as inpatient services in accordance to with the 2-midnight benchmark under 43 CFR 412.3(e) Estimated Total Length of Stay (Days): 5 Plans for Post Hospital Care: SNF Review of Systems All other systems reviewed negative except as stated in HPI Constitutional: Reports anorexia, Reports body ache(s), Reports fatigue, Reports lack of energy, Reports weakness Cardiovascular: Reports foot swelling, Denies chest pain Respiratory: Reports shortness of breath, Reports shortness of breath with activity PMFSH - History History Provided By: Family Member, Medical Record - Medical History Medical History: Medical History (Last Reviewed 05/19/18 @ 21:03 by Domingo Angulo MD) Asthma COPD (chronic obstructive pulmonary disease) Chronic kidney disease, stage 3 Claudication Coronary artery disease Diabetes Hiatal hernia High cholesterol History of aortic stenosis History of ischemic left MCA stroke History of prostate cancer Hypertension Ischemic cardiomyopathy - Surgical History Surgical History: Surgical History (Last Reviewed 05/19/18 @ 21:03 by Domingo Angulo MD) History of coronary artery bypass surgery History of esophagogastroduodenoscopy (EGD) Status post transcatheter aortic valve replacement - Family History Family History: Family History (Last Updated 05/19/18 @ 21:04 by Domingo Angulo MD) Other Family history non-contributory - Tobacco History Second Hand Smoke Exposure: No Tobacco Use In Past 30 Days: No Smoking Status: Former smoker Tobacco Type: Cigarettes Number of Pack Years (if former smoker): 62 Smoking End Date: 8 years ago - Alcohol History How Often Do You Have a Drink Containing Alcohol: Never - Substance Use History Substance History: No History of Abuse - Travel History Recent Travel in the [place] Within the Last 8 Weeks: No Recent Travel Out of the Country Within the Last 8 Weeks: No - Immunization History Tetanus Immunization: <5 Years Hx Influenza Vaccine This Season: Yes Medications and Allergies Active Medications: Active Medications Acetaminophen (Tylenol) 650 mg PO Q4H PRN PRN Reason: Temp > 100.4 Al Hydroxide/Mg Hydroxide (Milk Of Magnesia Liq) 30 ml PO Q12H PRN PRN Reason: Mild Constipation Albuterol (Duoneb Neb (Prn)) 1 ampul NEB Q4HR NEB PRN PRN Reason: SHORTNESS OF BREATH/WHEEZING Bisacodyl (Dulcolax Supp) 10 mg RECTAL DAILY PRN PRN Reason: SEVERE CONSITIPATION Budesonide/Formoterol Fumarate (Symbicort 80/4.5 Mcg Inh) 2 puff INH BID [facility] Clopidogrel Bisulfate (Plavix) 75 mg PO DAILY [facility] Heparin Sodium (Porcine) (Heparin Inj) 5,000 units SQ Q12H RAÚL Lactulose (Lactulose Liq) 30 ml PO DAILY PRN PRN Reason: SEVERE CONSITIPATION Metoprolol Tartrate (Lopressor) 25 mg PO BID [facility] Non-Formulary Medication (Ranitidine Hcl [Ranitidine Hcl]) 150 mg PO DAILY [facility] Ondansetron HCl (Zofran Inj) 4 mg IV.PUSH Q6H PRN PRN Reason: NAUSEA OR VOMITING Sennosides (Senokot) 17.2 mg PO Q12H PRN PRN Reason: Moderate Constipation Temazepam (Restoril) 15 mg PO HS PRN PRN Reason: INSOMNIA Tiotropium [place] (Spiriva 18 Mcg Inh) 18 mcg INH DAILY RAÚL Allergies Allergy/AdvReac Type Severity Reaction Status Date / Time Royannh-Phv-Sji Reductase AdvReac Unknown MUSCLE Verified 05/19/18 09:53 Inhibitor ACHES Home Medications Medication Instructions Recorded Confirmed Type albuterol sulfate 2.5 mcg CONTINUOUS NEBULIZATION 05/13/18 05/13/18 History PRN MDD 2.5 albuterol sulfate [Ventolin HFA] 90 mcg INHALATION PRN PRN 05/13/18 05/13/18 History aspirin [Aspirin Low Dose] 81 mg PO DAILY 05/13/18 05/13/18 History budesonide-formoterol [Symbicort] 2 puff INHALATION BID 05/13/18 05/19/18 History clopidogrel 75 mg PO DAILY 05/13/18 05/19/18 History ferrous sulfate [Iron (ferrous 325 mg PO DAILY 05/13/18 05/13/18 History sulfate)] metoprolol tartrate 25 mg PO BID 05/13/18 05/19/18 History qw-vz-exya-FA-herbal cmplx#190 25 mcg PO BID MDD 50 05/13/18 05/13/18 History [Vitamin D3 Complete] ranitidine HCl 150 mg PO DAILY 05/13/18 05/19/18 History rosuvastatin 40 mg PO DAILY 05/13/18 05/19/18 History sitagliptin [Januvia] 100 mg PO DAILY 05/13/18 05/19/18 History tiotropium bromide [Spiriva with 18 mcg INHALATION DAILY MDD 18 05/13/18 History HandiHaler] torsemide 20 mg PO DAILY 05/13/18 05/19/18 History Exam Vital signs: Vital Signs 05/19/18 09:56 05/19/18 10:44 05/19/18 14:22 Temperature 98 F Pulse Rate 89 88 92 H Respiratory Rate 20 18 Blood Pressure 134/65 Pulse Oximetry 96 97 99 Intake & Output 05/18/18 05/19/18 05/19/18 18:59 06:59 18:59 Weight 79.379 kg Narrative: CONSTITUTIONAL/GENERAL: Elderly and very frail male. Vital signs reviewed SKIN: No jaundice, rashes, or concerning lesions. Not diaphoretic. HEAD: Atraumatic. Normocephalic. EYES: Pupils equal and round and reactive. Extra ocular motions are intact. No scleral icterus. No injection or drainage. ENT: Hearing grossly normal. Nose without drainage. Throat without visible erythema, exudates, masses, or lesions. NECK: Trachea midline. Neck is supple, non-tender. No palpable thyroid enlargement or nodularity. CARDIOVASCULAR: Normal rate and regular rhythm without murmurs, gallops, or rubs. No JVD. Peripheral pulses 2+ and symmetric. RESPIRATORY/CHEST: Air movement is fair. Effort is fair. Markedly diminished breath sounds at the bases. Faint basilar crackles. No wheezing. GASTROINTESTINAL: Abdomen soft, non-tender, non-distended. No hepato- splenomegaly, or palpable masses. No guarding. Bowel sounds present. MUSCULOSKELETAL: Trace bilateral lower extremity edema NEUROLOGICAL: Awake and alert. Significant generalized weakness. Some dysarthria. PSYCHIATRIC: No obvious mood problems. No apparent hallucinations or other psychotic thought process. Results - Labs CBC & Chem 7: 05/19/18 10:15 05/19/18 10:15 Labs: Short CBC 05/19/18 Range/Units 10:15 WBC 9.3 (4.0-11.0) th/mm3 Hgb 9.7 L (13.0-17.0) gm/dL Hct 29.3 L (39.0-51.0) % Plt Count 221 (150-450) th/mm3 BMP 05/19/18 10:15 Sodium 146 H Potassium 3.1 L Chloride 112 H Carbon Dioxide 22.2 BUN 23 H Creatinine 1.84 H Calcium 9.1 Cardiac Enzymes 05/19/18 Range/Units 10:15 Total Creatine Kinase 713 H (39-308) U/L CK-MB (CK-2) 5.2 H (0.5-3.6) ng/mL Troponin I 0.06 H (0.02-0.05) ng/mL Liver Function 05/19/18 Range/Units 10:15 Total Bilirubin 0.5 (0.2-1.0) mg/dL AST 65 H (15-37) U/L ALT 57 (12-78) U/L Alkaline Phosphatase 165 H (45-117) U/L Albumin 2.1 L (3.4-5.0) g/dL - Imaging Impressions Chest X-Ray 05/19/18 10:19 CONCLUSION: 1. Stable parenchymal scarring the left base. Lungs are otherwise clear. 2. Stable postsurgical changes with intact median sternotomy wires and prior TAVR Caprini VTE Risk Assessment Caprini VTE Risk Assessment: Moderate/High Risk (score >= 2) Caprini Risk Assessment Model: Point Value = 1 Point Value = 2 Point Value = 3 Point Value = 5 Age 41-60 Minor surgery BMI > 25 kg/m2 Swollen legs Varicose veins or History of unexplained or recurrent spontaneous Oral contraceptives or hormone replacement Sepsis (< 1 month) Serious lung disease, including pneumonia (< 1 month) Abnormal pulmonary function Acute myocardial infarction Congestive heart failure (< 1 month) History of inflammatory bowel disease Medical patient at bed rest Age 61-74 Arthroscopic surgery Major open surgery (> 45 min) Laparoscopic surgery (> 45 min) Malignancy Confined to bed (> 72 hours) Immobilizing plaster cast Central venous access Age >= 75 History of VTE Family history of VTE Factor V Leiden Prothrombin [id number] Lupus anticoagulant Anticardiolipin antibodies Elevated serum homocysteine Heparin-induced thrombocytopenia Other congenital or acquired thrombophilia Stroke (< 1 month) Elective arthroplasty Hip, pelvis, or leg fracture Acute spinal cord injury (< 1 month) Prophylaxis Regimen: Total Risk Factor Score Risk Level Prophylaxis Regimen 0-1 Low Early ambulation 2 Moderate Order ONE of the following: *Sequential Compression Device (SCD) *Heparin 5000 units SQ BID 3-4 Higher Order ONE of the following medications: *Heparin 5000 units SQ TID *Enoxaparin/Lovenox 40 mg SQ daily (WT < 150 kg, CrCl > 30 mL/min) *Enoxaparin/Lovenox 30 mg SQ daily (WT < 150 kg, CrCl > 10-29 mL/min) *Enoxaparin/Lovenox 30 mg SQ BID (WT < 150 kg, CrCl > 30 mL/min) AND/OR *Sequential Compression Device (SCD) 5 or more Highest Order ONE of the following medications: *Heparin 5000 units SQ TID (Preferred with Epidurals) *Enoxaparin/Lovenox 40 mg SQ daily (WT < 150 kg, CrCl > 30 mL/min) *Enoxaparin/Lovenox 30 mg SQ daily (WT < 150 kg, CrCl > 10-29 mL/min) *Enoxaparin/Lovenox 30 mg SQ BID (WT < 150 kg, CrCl > 30 mL/min) AND *Sequential Compression Device (SCD) Assessment and Plan - Assessment (1) Dyspnea on exertion Code(s): R06.09 - Other forms of dyspnea Status: Acute Plan: The patient appears severely debilitated. He has shortness of breath with minimal activity. He requires maximum assistance. It is unclear if this is related to heart failure, COPD, or combination. His BNP is mildly elevated but the last echocardiogram was recent and showed preserved LVEF. However there were concerns for diastolic HF from one of his previous admissions. Consulted cardiology for assistance. Discussed with Dr. Palacio, no significant signs of heart failure noted. For now we will continue IV Lasix. Watch I/O. Suspect this is multifactorial. He will need SNF. Pulmonology consulted (2) Elevated brain natriuretic peptide (BNP) level Code(s): R79.89 - Other specified abnormal findings of blood chemistry Status : Acute Plan: See above. Monitor fluid status. (3) Debility Code(s): R53.81 - Other malaise Status: Acute Plan: Severe debility. Patient with recent multiple Hospitalizations. Multiple comorbid conditions and clearly in a declining path. Unable to be cared for at home. PT eval. Will need SNF placement. (4) Hypertension Code(s): I10 - Essential (primary) hypertension Status: Acute Plan: Continue Lopressor, Lasix (5) Chronic obstructive pulmonary disease Code(s): J44.9 - Chronic obstructive pulmonary disease, unspecified Status: Acute Plan: Continue Symbicort. Breathing treatments as needed. Consult Pulmonology. (6) Hypokalemia Code(s): E87.6 - Hypokalemia Status: Acute Plan: Replace and monitor (7) CKD (chronic kidney disease) stage 3, GFR 30-59 ml/min Code(s): N18.3 - Chronic kidney disease, stage 3 (moderate) Status: Acute Plan: Renal functions close to baseline. Monitor. (8) Hypernatremia Code(s): E87.0 - Hyperosmolality and hypernatremia Status: Acute - Plan Discussed Condition With: Dr. Gordon , ED physician and Sales Route Driver Dr. Palacio.
--- NOTE | 2018-05-19 16:15 | MB ---
cc: Mauri Dotson MD DATE: 05/19/2018 REASON FOR CONSULTATION: COPD exacerbation. HISTORY OF PRESENT ILLNESS: Mr. Ware is a 77-year-old male with a known history of COPD, recently discharged from the hospital. states he had increasing shortness of breath after which she brought him to the ER. He has no cough, no expectoration, no fever, no chills, no hemoptysis. Generally he is weak and chronically short of breath with minimal exertion. He is not on oxygen therapy at home. PAST MEDICAL HISTORY: COPD, diabetes mellitus, coronary artery disease, status post TAVR, congestive heart failure, chronic kidney disease, and hypertension. PAST SURGICAL HISTORY: Previous coronary artery bypass graft surgery, transaortic valve replacement. FAMILY HISTORY: Noncontributory. SOCIAL HISTORY: A 62 pack year smoking history; has not smoked in 8 years. Does not drink any alcohol, does not use drugs and never did. IMMUNIZATIONS: Recently vaccinated for influenza. REVIEW OF SYSTEMS: A 12-point review of systems as per HPI and Past History, otherwise negative. PHYSICAL EXAMINATION: GENERAL: The patient is alert. VITAL SIGNS: Temperature 98, pulse 86, respirations 20, blood pressure 130/64, oxygen saturation 96% on 2 liters oxygen nasal cannula. HEENT: Exam unremarkable. Eyes without icterus. NECK: Without adenopathy or thyroid enlargement. Central trachea. CHEST: No dullness to percussion. A few rhonchi at bases. CARDIAC: PMI not appreciated. S1, S2 audible. No murmur. No rub. ABDOMEN: Lax, bowel sounds audible. EXTREMITIES: No clubbing, cyanosis or edema. LABORATORY DATA: White count 9000, hemoglobin 9.7, hematocrit 29, platelets 221,000. Sodium 146, potassium 3.1, BUN 23, creatinine 1.8. IMAGING STUDIES: Chest x-ray: Parenchymal scar left base. Lungs are clear bilaterally. Previous median sternotomy noted. IMPRESSION: 1. Chronic obstructive pulmonary disease exacerbation. 2. Coronary artery disease. 3. Hypertension. 4. Coronary artery disease. 5. Chronic kidney disease. 6. Congestive heart failure. PLAN: The patient will be maintained on oxygen therapy as needed. Bronchodilator therapy has been given and appropriately so. A chest x-ray will be followed as needed, is stable at present. We will follow his course along with you and, depending on his progress, proceed further. I do thank you for asking me to partake in Mr. Ware's care. Mauri Dotson MD WWW/ARABELLA , 03:45 PM , 04:13 PM
--- NOTE | 2018-05-19 16:38 | MB ---
cc: Kai Palacio MD DATE: 05/19/2018 REASON FOR CONSULTATION: Evaluation for possible congestive heart failure HISTORY OF PRESENT ILLNESS: Jeanie Chan is a 77-year-old man who is now admitted for the fifth time this year. The patient is known to have mild coronary artery disease based on a catheterization from 02/06/2018. He had right coronary artery stents that were patent. He had some ostial ramus disease, but otherwise all of his other disease was mild. 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 Subsequently, he underwent a #29 [employer] Evolut TAVR on 03/11/2018. This was complicated by left middle cerebral artery stroke. Most of the stroke symptoms have improved. He still has a right facial droop. He is able to swallow better. He was readmitted 03/31/2018 through 04/13/2018 and again 04/15/2018 to 04/24/2018 and now comes in. His is at the bedside. Apparently, the patient is extremely weak. He cannot even sit up in bed without assistance. He has shortness of breath with just minimal activity. She relates how he had admission where he had fecal impaction. He has got a little bit of swelling in the feet and arm, but really no PND, orthopnea or other signs of heart failure that I see. He does not have any chest pain, just overall very weak and is not able to take care of him at home. PAST MEDICAL HISTORY: Well documented. He has got stage III chronic kidney disease, prostate cancer, hypertension, diabetes. SOCIAL HISTORY: Notable for significant past smoking history but quit 8 years ago. He is . MEDICATIONS: Charted. He is on clopidogrel 75 mg daily. He was on torsemide that has been changed to Lasix 40 intravenous daily and metoprolol 25 twice daily, potassium. PHYSICAL EXAMINATION: GENERAL: Reveals an elderly white male. He is supine. He has an obvious right facial droop. HEENT: Exam unremarkable. NECK: No JVD. No bruits. CHEST: Shows diminished breath sounds. No wheezes or rales. CARDIAC: He has fairly distant heart sounds. I do not hear any systolic murmur or S3. ABDOMEN: Soft. EXTREMITIES: Trace edema on the feet. His EKG shows normal sinus rhythm, nonspecific ST-T abnormality. Chest x-ray shows some scarring at the left base, does not report any findings of heart failure. LABS: His labs show a hematocrit of 29.3. PO2 of 68 on room air. Potassium is 3.1, creatinine 1.84, in the process of being repleted. BNP is 303. IMPRESSION: I do not see evidence for a decompensated congestive heart failure. It looks like severe frailness, physical debilitation, chronic obstructive pulmonary disease. There may be a component of some mild chronic diastolic heart failure, but nothing acute. RECOMMENDATIONS: I spoke to his admitting physician. He might benefit from pulmonary involvement and consideration of inpatient rehabilitation somewhere. MD DEVANTE Lockhart/ARABELLA , 04:16 PM , 04:36 PM
[2018-05-19] MEDS: Heparin - SQ 10,000 UNITS/ML Vial SQ SCH (16:48)
--- NOTE | 2018-05-19 17:22 | ECG ---
Date Performed: 05/19/2018 Time Performed: 09:48:13 PTAGE: 77 years EKG: Sinus rhythm NONSPECIFIC ST & T-WAVE ABNORMALITY ABNORMAL ECG PREVIOUS TRACING 05/13/18 @ 19.46.02 Since the previous tracing, no significant change noted DOCTOR: Ethan Peralta Interpretating Date/Time 05/19/2018 17:20:59
[2018-05-19] MEDS: Budesonide-Formoterol 80/4.5 MCG 6.9 GM Inhaler INH SCH (20:34)
[2018-05-19] MEDS: Metoprolol Tartrate 25 MG Tablet PO SCH (20:34)
[2018-05-19] MEDS ORDERED: Dextrose 50% in Water 50 ML Vial IV.PUSH PRN (21:04)
[2018-05-19 22:37] LABS: Activated Partial Thrombo Time 27.3 sec (24.3-30.1); INR 1.2 Ratio
[2018-05-20] MEDS: Heparin - SQ 10,000 UNITS/ML Vial SQ SCH ×2 (08:25→21:02)
[2018-05-20] MEDS: Famotidine 20 MG Tablet PO SCH (08:25)
[2018-05-20] MEDS: Metoprolol Tartrate 25 MG Tablet PO SCH ×2 (08:25→21:02)
[2018-05-20] MEDS: Budesonide-Formoterol 80/4.5 MCG 6.9 GM Inhaler INH SCH ×2 (08:26→21:02)
[2018-05-20] MEDS: Tiotropium Bromide 18 MCG/ACT Inhaler INH SCH (09:52)
--- NOTE | 2018-05-20 09:54 | P.PNCA ---
Subjective Interval history: no orthopnea, no PND, SOB with activity Physical Exam Vital signs: Vital Signs 05/19/18 09:56 05/19/18 10:44 05/19/18 14:22 Temperature 98 F Pulse Rate 89 88 92 H Respiratory Rate 20 18 Blood Pressure 134/65 Pulse Oximetry 96 97 99 05/19/18 15:40 05/19/18 19:49 05/19/18 20:38 Temperature 97.6 F 98.4 F Pulse Rate 85 95 H Respiratory Rate 20 17 Blood Pressure 159/70 H 152/69 H Pulse Oximetry 97 96 96 05/19/18 23:48 05/20/18 03:50 05/20/18 04:45 Temperature 98.1 F Pulse Rate 92 H 82 80 Respiratory Rate 17 16 Blood Pressure 141/66 H 144/62 H Pulse Oximetry 96 95 05/20/18 08:00 Temperature 97.3 F L Pulse Rate 76 Respiratory Rate 18 Blood Pressure 176/72 H Pulse Oximetry 96 Intake & Output 05/19/18 05/20/18 05/20/18 18:59 06:59 18:59 Intake Total 400 / 400 Output Total 400 / 400 Balance 0 / 0 Weight 79.379 kg Intake: Oral 200 / 200 Oral Supplement 200 / 200 Output: Urine 400 / 400 Other: # Voids 2 Date of Last Bowel Movement 05/19/18 Narrative: Alert Mildly dysarthic Chest clear but diminished CV S1S2 soft RRR, no murmur Abd; soft Ext: slight edema in ankles, posterior aspect right forearm Assessment and Plan - Assessment (1) Chronic diastolic CHF (congestive heart failure) Code(s): I50.32 - Chronic diastolic (congestive) heart failure Status: Acute Plan: Fairly stable. Only slight extracellular fluid. No orthopne. No pulmonary congestion. (2) Chronic obstructive pulmonary disease Code(s): J44.9 - Chronic obstructive pulmonary disease, unspecified Status: Acute (3) S/P TAVR (transcatheter aortic valve replacement) Code(s): Z95.2 - Presence of prosthetic heart valve Status: Acute Plan: no murmur (4) CAD (coronary artery disease) Code(s): I25.10 - Atherosclerotic heart disease of [place] coronary artery without angina pectoris Status: Acute Plan: no angina (5) Debility Code(s): R53.81 - Other malaise Status: Acute Plan: Hoping he can get inpatient rehab - he is weak, can't sit up without assistance
[2018-05-20 10:36] LABS: Baso % (Auto) 0.2 % (0.0-2.0); Hematocrit 28.3 % (39.0-51.0); Hemoglobin 9.4 gm/dL (13.0-17.0); Lymph # (Auto) 1.1 th/mm3 (1.0-4.8); Lymph % (Auto) 10.7 % (9.0-44.0); Mean Corpuscular HGB Conc 33.2 % (32.0-36.0); Mean Corpuscular Hemoglobin 29.5 pg (27.0-34.0); Mean Corpuscular Volume 88.8 fL (80.0-100.0); Mean Platelet Volume 9.9 fL (7.0-11.0); Mono # (Auto) 0.6 th/mm3 (0.0-0.9); Mono % (Auto) 5.5 % (0.0-8.0); Neut # (Auto) 8.9 th/mm3 (1.8-7.7); Neut % (Auto) 83.6 % (16.0-70.0); Platelet Count 233 th/mm3 (150-450); Red Blood Count 3.19 mil/mm3 (4.50-5.90); Red Cell Distribution Width 17.8 % (11.6-17.2); White Blood Count 10.7 th/mm3 (4.0-11.0)
[2018-05-20 11:01] LABS: Calcium 9.1 mg/dL (8.5-10.1); Carbon Dioxide 24.3 meq/L (21.0-32.0); Potassium 3.7 meq/L (3.5-5.1)
--- NOTE | 2018-05-20 12:05 | P.PNIM ---
Subjective Interval history: Patient reports he is feeling about the same. Still with significant generalized weakness, dyspnea on exertion. Physical Exam Vital signs: Vital Signs 05/19/18 14:22 05/19/18 15:40 05/19/18 19:49 Temperature 97.6 F 98.4 F Pulse Rate 92 H 85 95 H Respiratory Rate 18 20 17 Blood Pressure 159/70 H 152/69 H Pulse Oximetry 99 97 96 05/19/18 20:38 05/19/18 23:48 05/20/18 03:50 Temperature 98.1 F Pulse Rate 92 H 82 Respiratory Rate 17 16 Blood Pressure 141/66 H 144/62 H Pulse Oximetry 96 96 95 05/20/18 04:45 05/20/18 08:00 Temperature 97.3 F L Pulse Rate 80 76 Respiratory Rate 18 Blood Pressure 176/72 H Pulse Oximetry 96 Intake & Output 05/19/18 05/20/18 05/20/18 18:59 06:59 18:59 Intake Total 400 / 400 500 / 500 Output Total 400 / 400 Balance 0 / 0 500 / 500 Weight 79.379 kg Intake: Oral 200 / 200 500 / 500 Oral Supplement 200 / 200 Output: Urine 400 / 400 Other: # Voids 2 Date of Last Bowel Movement 05/19/18 Narrative: CONSTITUTIONAL/GENERAL: Elderly and very frail male. Vital signs reviewed CARDIOVASCULAR: Normal rate and regular rhythm without murmurs, gallops, or rubs. RESPIRATORY/CHEST: Air movement is fair. Effort is fair. Markedly diminished breath sounds at the bases. No wheezing. GASTROINTESTINAL: Abdomen soft, non-tender, non-distended. MUSCULOSKELETAL: Trace bilateral lower extremity edema NEUROLOGICAL: Awake and alert. Significant generalized weakness. Some dysarthria from previous stroke. Results - Labs CBC & Chem 7: 05/20/18 09:37 05/20/18 09:37 Laboratory Results - last 24 hr 05/19/18 05/20/18 05/20/18 21:57 08:31 09:37 WBC 10.7 RBC 3.19 L Hgb 9.4 L Hct 28.3 L MCV 88.8 MCH 29.5 MCHC 33.2 RDW 17.8 H Plt Count 233 MPV 9.9 Neut % (Auto) 83.6 H Lymph % (Auto) 10.7 [place] % (Auto) 5.5 Eos % (Auto) 0.0 Baso % (Auto) 0.2 Neut # (Auto) 8.9 H Lymph # (Auto) 1.1 [place] # (Auto) 0.6 Eos # (Auto) 0.0 Baso # (Auto) 0.0 WBC Differential . Differential Comment Auto diff final PT 12.0 H INR 1.2 APTT 27.3 Sodium Potassium Chloride Carbon Dioxide Anion Gap BUN Creatinine Estimated GFR POC Glucose 151 H Random Glucose Calcium 05/20/18 09:37 WBC RBC Hgb Hct MCV MCH MCHC RDW Plt Count MPV Neut % (Auto) Lymph % (Auto) [place] % (Auto) Eos % (Auto) Baso % (Auto) Neut # (Auto) Lymph # (Auto) [place] # (Auto) Eos # (Auto) Baso # (Auto) WBC Differential Differential Comment PT INR APTT Sodium 145 Potassium 3.7 Chloride 111 H Carbon Dioxide 24.3 Anion Gap 10 BUN 29 H Creatinine 1.77 H Estimated GFR 38 L POC Glucose Random Glucose 132 H Calcium 9.1 Assessment and Plan - Assessment (1) Dyspnea on exertion Code(s): R06.09 - Other forms of dyspnea Status: Acute Plan: The patient appears severely debilitated. He has shortness of breath with minimal activity. He requires maximum assistance. It appears he has been declining over time to the point where his can no longer take care of him at home. His BNP is mildly elevated but the last echocardiogram on 04/10/18 showed preserved LVEF. However there were concerns for diastolic HF from one of his previous admissions. Consulted cardiology for assistance. Discussed with Dr. Palacio, no significant signs of heart failure noted. Patient was seen by pulmonology, cefuroxime was added to his medication regimen. Dyspnea on exertion persists due to the patient's overall debilitated state. He needs rehabilitation. He is discharged to SNF to continue rehab efforts. (2) Elevated brain natriuretic peptide (BNP) level Code(s): R79.89 - Other specified abnormal findings of blood chemistry Status : Acute Plan: See above. (3) Debility Code(s): R53.81 - Other malaise Status: Acute Plan: Severe debility. Patient with recent multiple Hospitalizations. Multiple comorbid conditions and clearly in a declining path. Unable to be cared for at home. Patient need placement to SNF to continue rehabilitation efforts. (4) Hypertension Code(s): I10 - Essential (primary) hypertension Status: Acute Plan: Continue Lopressor, Lasix (5) Chronic obstructive pulmonary disease Code(s): J44.9 - Chronic obstructive pulmonary disease, unspecified Status: Acute Plan: Continue Symbicort. Breathing treatments as needed. Cefuroxime added. He is discharged on a 7 day treatment course. (6) Hypokalemia Code(s): E87.6 - Hypokalemia Status: Acute Plan: Replace and monitor (7) CKD (chronic kidney disease) stage 3, GFR 30-59 ml/min Code(s): N18.3 - Chronic kidney disease, stage 3 (moderate) Status: Acute Plan: Renal functions close to baseline. (8) Hypernatremia Code(s): E87.0 - Hyperosmolality and hypernatremia Status: Acute - Plan Discharge Planning: Discharge patient to home Condition on discharge: stable Regular Diet as tolerated Ad Cierra activity Rx written: Per med rec Follow-up with primary care physician
--- NOTE | 2018-05-20 15:13 | P.PN ---
Subjective Interval history: alert on o2 NC NO DISTRESS Physical Exam Vital signs: Vital Signs 05/19/18 15:40 05/19/18 19:49 05/19/18 20:38 Temperature 97.6 F 98.4 F Pulse Rate 85 95 H Respiratory Rate 20 17 Blood Pressure 159/70 H 152/69 H Pulse Oximetry 97 96 96 05/19/18 23:48 05/20/18 03:50 05/20/18 04:45 Temperature 98.1 F Pulse Rate 92 H 82 80 Respiratory Rate 17 16 Blood Pressure 141/66 H 144/62 H Pulse Oximetry 96 95 05/20/18 08:00 05/20/18 12:00 Temperature 97.3 F L 97.7 F Pulse Rate 76 77 Respiratory Rate 18 18 Blood Pressure 176/72 H 160/66 H Pulse Oximetry 96 98 Intake & Output 05/19/18 05/20/18 05/20/18 18:59 06:59 18:59 Intake Total 400 / 400 500 / 500 Output Total 400 / 400 Balance 0 / 0 500 / 500 Weight 79.379 kg Intake: Oral 200 / 200 500 / 500 Oral Supplement 200 / 200 Output: Urine 400 / 400 Other: # Voids 2 Date of Last Bowel Movement 05/19/18 Narrative: Alert Mildly dysarthic Chest clear but diminished CV S1S2 soft RRR, no murmur Abd; soft Ext: slight edema in ankles, posterior aspect right forearm Results - Labs CBC & Chem 7: 05/20/18 09:37 05/20/18 09:37 Laboratory Results - last 24 hr 05/19/18 05/20/18 05/20/18 21:57 08:31 09:37 WBC 10.7 RBC 3.19 L Hgb 9.4 L Hct 28.3 L MCV 88.8 MCH 29.5 MCHC 33.2 RDW 17.8 H Plt Count 233 MPV 9.9 Neut % (Auto) 83.6 H Lymph % (Auto) 10.7 [place] % (Auto) 5.5 Eos % (Auto) 0.0 Baso % (Auto) 0.2 Neut # (Auto) 8.9 H Lymph # (Auto) 1.1 [place] # (Auto) 0.6 Eos # (Auto) 0.0 Baso # (Auto) 0.0 WBC Differential . Differential Comment Auto diff final PT 12.0 H INR 1.2 APTT 27.3 Sodium Potassium Chloride Carbon Dioxide Anion Gap BUN Creatinine Estimated GFR POC Glucose 151 H Random Glucose Calcium 05/20/18 05/20/18 09:37 12:43 WBC RBC Hgb Hct MCV MCH MCHC RDW Plt Count MPV Neut % (Auto) Lymph % (Auto) [place] % (Auto) Eos % (Auto) Baso % (Auto) Neut # (Auto) Lymph # (Auto) [place] # (Auto) Eos # (Auto) Baso # (Auto) WBC Differential Differential Comment PT INR APTT Sodium 145 Potassium 3.7 Chloride 111 H Carbon Dioxide 24.3 Anion Gap 10 BUN 29 H Creatinine 1.77 H Estimated GFR 38 L POC Glucose 163 H Random Glucose 132 H Calcium 9.1 Assessment and Plan - Plan COPD CKD PLAN O2 NEEDED BRONCHODILATOR THERAPY INCREASE ACTIVITY
[2018-05-20] MEDS: Insulin NovoLOG Aspart Correctional Sugar Inj SQ SCH ×4 (16:29→21:03)
[2018-05-21] MEDS: Famotidine 20 MG Tablet PO SCH (08:14)
[2018-05-21] MEDS: Metoprolol Tartrate 25 MG Tablet PO SCH ×2 (08:15→22:14)
[2018-05-21] MEDS: Budesonide-Formoterol 80/4.5 MCG 6.9 GM Inhaler INH SCH ×2 (08:16→22:16)
[2018-05-21] MEDS: Tiotropium Bromide 18 MCG/ACT Inhaler INH SCH (08:17)
[2018-05-21] MEDS: Heparin - SQ 10,000 UNITS/ML Vial SQ SCH ×2 (08:17→22:14)
[2018-05-21] MEDS: Insulin NovoLOG Aspart Correctional Sugar Inj SQ SCH ×4 (11:30→22:15)
--- NOTE | 2018-05-21 14:37 | P.PN ---
Subjective Interval history: ALERT NAD Physical Exam Vital signs: Vital Signs 05/20/18 16:00 05/20/18 20:00 05/20/18 21:08 Temperature 97.6 F 98.7 F Pulse Rate 75 78 Respiratory Rate 18 17 Blood Pressure 138/63 142/65 H Pulse Oximetry 98 97 97 05/20/18 23:50 05/21/18 02:52 05/21/18 03:05 Temperature 98.5 F 97.4 F L Pulse Rate 77 71 80 Respiratory Rate 17 17 Blood Pressure 138/62 142/68 H Pulse Oximetry 97 98 05/21/18 08:02 05/21/18 10:15 05/21/18 11:55 Temperature 98.0 F 97.6 F Pulse Rate 72 76 83 Respiratory Rate 16 16 Blood Pressure 159/67 H 139/65 Pulse Oximetry 95 96 Intake & Output 05/20/18 05/21/18 05/21/18 18:59 06:59 18:59 Intake Total 500 / 500 Balance 500 / 500 Intake: Oral 500 / 500 Other: # Voids 2 Date of Last Bowel Movement 05/19/18 Narrative: CONSTITUTIONAL/GENERAL: Elderly and very frail male. Vital signs reviewed CARDIOVASCULAR: Normal rate and regular rhythm without murmurs, gallops, or rubs. RESPIRATORY/CHEST: Air movement is fair. Effort is fair. Markedly diminished breath sounds at the bases. No wheezing. GASTROINTESTINAL: Abdomen soft, non-tender, non-distended. MUSCULOSKELETAL: Trace bilateral lower extremity edema NEUROLOGICAL: Awake and alert. Significant generalized weakness. Some dysarthria from previous stroke. Results - Labs CBC & Chem 7: 05/20/18 09:37 05/20/18 09:37 Laboratory Results - last 24 hr 05/20/18 05/21/18 05/21/18 17:35 07:55 13:41 POC Glucose 147 H 114 H 154 H Assessment and Plan - Plan COPD CKD PLAN O2 NEEDED BRONCHODILATOR THERAPY INCREASE ACTIVITY
--- NOTE | 2018-05-21 15:11 | P.PNIM ---
Subjective Interval history: Patient discharge yesterday. Awaiting authorization from insurance company for SNF placement. He reports he is feeling okay, still gets short of breath with minimal activities. Breathing treatments help. He denies chest pain. Still very weak. Physical Exam Vital signs: Vital Signs 05/20/18 16:00 05/20/18 20:00 05/20/18 21:08 Temperature 97.6 F 98.7 F Pulse Rate 75 78 Respiratory Rate 18 17 Blood Pressure 138/63 142/65 H Pulse Oximetry 98 97 97 05/20/18 23:50 05/21/18 02:52 05/21/18 03:05 Temperature 98.5 F 97.4 F L Pulse Rate 77 71 80 Respiratory Rate 17 17 Blood Pressure 138/62 142/68 H Pulse Oximetry 97 98 05/21/18 08:02 05/21/18 10:15 05/21/18 11:55 Temperature 98.0 F 97.6 F Pulse Rate 72 76 83 Respiratory Rate 16 16 Blood Pressure 159/67 H 139/65 Pulse Oximetry 95 96 Intake & Output 05/20/18 05/21/18 05/21/18 18:59 06:59 18:59 Intake Total 500 / 500 Balance 500 / 500 Intake: Oral 500 / 500 Other: # Voids 2 Date of Last Bowel Movement 05/19/18 Narrative: CONSTITUTIONAL/GENERAL: Elderly and very frail male. Vital signs reviewed CARDIOVASCULAR: Normal rate and regular rhythm without murmurs, gallops, or rubs. RESPIRATORY/CHEST: Air movement is fair. Effort is fair. Markedly diminished breath sounds at the bases. Faint end expiratory wheezing GASTROINTESTINAL: Abdomen soft, non-tender, non-distended. MUSCULOSKELETAL: Trace bilateral lower extremity edema NEUROLOGICAL: Awake and alert. Significant generalized weakness. Some dysarthria from previous stroke. Results - Labs CBC & Chem 7: 05/20/18 09:37 05/20/18 09:37 Laboratory Results - last 24 hr 05/20/18 05/21/18 05/21/18 17:35 07:55 13:41 POC Glucose 147 H 114 H 154 H Assessment and Plan - Assessment (1) Dyspnea on exertion Code(s): R06.09 - Other forms of dyspnea Status: Acute Plan: The patient appears severely debilitated. He has shortness of breath with minimal activity. He requires maximum assistance. It appears he has been declining over time to the point where his can no longer take care of him at home. His BNP is mildly elevated but the last echocardiogram on 04/10/18 showed preserved LVEF. However there were concerns for diastolic HF from one of his previous admissions. Consulted cardiology for assistance. Discussed with Dr. Palacio, no significant signs of heart failure noted. Patient was seen by pulmonology, cefuroxime was added to his medication regimen. Dyspnea on exertion persists due to the patient's overall debilitated state. He needs rehabilitation. He is discharged to SNF to continue rehab efforts. Continue bronchodilators. Appreciate pulmonology following. (2) Elevated brain natriuretic peptide (BNP) level Code(s): R79.89 - Other specified abnormal findings of blood chemistry Status : Acute Plan: See above. (3) Debility Code(s): R53.81 - Other malaise Status: Acute Plan: Severe debility. Patient with recent multiple Hospitalizations. Multiple comorbid conditions and clearly in a declining path. Unable to be cared for at home. Patient need placement to SNF to continue rehabilitation efforts. (4) Hypertension Code(s): I10 - Essential (primary) hypertension Status: Acute Plan: Continue Lopressor, Lasix (5) Chronic obstructive pulmonary disease Code(s): J44.9 - Chronic obstructive pulmonary disease, unspecified Status: Acute Plan: Continue Symbicort. Breathing treatments as needed. Cefuroxime added. He is discharged on a 7 day treatment course. (6) Hypokalemia Code(s): E87.6 - Hypokalemia Status: Acute Plan: Replace and monitor (7) CKD (chronic kidney disease) stage 3, GFR 30-59 ml/min Code(s): N18.3 - Chronic kidney disease, stage 3 (moderate) Status: Acute Plan: Renal functions close to baseline. (8) Hypernatremia Code(s): E87.0 - Hyperosmolality and hypernatremia Status: Acute - Plan Discharge Planning: Discharge patient to SNF Condition on discharge: stable Regular Diet as tolerated Ad Cierra activity Rx written: Per med rec Follow-up with primary care physician
[2018-05-22] MEDS: Budesonide-Formoterol 80/4.5 MCG 6.9 GM Inhaler INH SCH (09:21)
[2018-05-22] MEDS: Famotidine 20 MG Tablet PO SCH (09:22)
[2018-05-22] MEDS: Heparin - SQ 10,000 UNITS/ML Vial SQ SCH (09:22)
[2018-05-22] MEDS: Tiotropium Bromide 18 MCG/ACT Inhaler INH SCH (09:23)
[2018-05-22] MEDS: Metoprolol Tartrate 25 MG Tablet PO SCH (09:23)
[2018-05-22] MEDS: Insulin NovoLOG Aspart Correctional Sugar Inj SQ SCH (09:25)
[2018-05-22 09:31] VITALS: BP 137/68; PULSE 91; RESP 18
--- NOTE | 2018-05-22 10:28 | P.DS ---
Date of admission: 05/19/18 12:47 Primary care physician: Kalin Palma MD Attending physician on discharge: Alok Ram Anticipated date of discharge: 05/22/18 Brief History from admission: 77-year-old male with a medical history significant for COPD, chronic kidney disease, history of aortic valve replacement, diabetes, history of CVA with residual dysarthria with multiple hospitalization over the past couple of months related to his comorbid conditions. History obtained from the patient's at bedside. The patient presented again today after he was discharged 2 days ago for hospitalization related to constipation. He underwent colonoscopy which revealed diverticulosis. His constipation resolved. However the patient remained severely debilitated. His is unable to care for him at home. He is severely short of breath with any activities. He cannot even sit up on the bed by himself. Workup in the emergency room revealed a mildly elevated BNP, concern for CHF. Patient Update on Day of Discharge: The patient reports his breathing is about the same. Denies orthopnea or shortness of breath while at rest but does reports some dyspnea on exertion. Lower extremity edema has improved. His O2 sat is stable on room air. He reports continued weakness, looking forward to going to rehab. Discussed with family member at bedside. DS: Diagnosis - Discharge Diagnosis (1) CHF exacerbation Status: Acute (2) Debility Status: Acute DS: Medications - Discharge Medications Prescriptions: cefuroxime axetil 250 mg PO Q12HR #14 tab DS: Summary Hospital Course: 77-year-old male with a medical history significant for COPD, chronic kidney disease, history of aortic valve replacement, diabetes, history of CVA with residual dysarthria with multiple hospitalization over the past couple of months related to his comorbid conditions. Acute Exacerbation of Chronic Diastolic CHF, Dyspnea on Exertion, Debility: patient presented with dyspnea on exertion. The patient appears severely debilitated. He has shortness of breath with minimal activity. He requires maximum assistance. It appears he has been declining over time to the point where his can no longer take care of him at home. His BNP is mildly elevated but the last echocardiogram on 04/10/18 showed preserved LVEF. However there were concerns for diastolic HF from one of his previous admissions. Continue on Lasix and bronchodilators. Consulted cardiology for assistance. Discussed with Dr. Palacio, no significant signs of heart failure noted. Patient was seen by pulmonology, cefuroxime was added to his medication regimen and given 7day course. Dyspnea on exertion persists due to the patient's overall severely debilitated state with multiple recent hospitalizations and comorbid conditions. Unable to be cared for at home. He needs rehabilitation. His O2 sat remained stable on room air. He was discharged to SNF to continue rehab efforts. - Time Spent with Patient Total time spent providing and/or coordinating discharge services: Greater than 30 minutes - Quality: VTE Deep Vein Thrombosis/Pulmonary Embolism Present on Admission: No Exam Vital signs: Vital Signs 05/21/18 11:55 05/21/18 15:51 05/21/18 16:00 Temperature 97.6 F 97.7 F Pulse Rate 83 86 87 Respiratory Rate 16 16 18 Blood Pressure 139/65 143/69 H Pulse Oximetry 96 96 05/21/18 20:00 05/21/18 23:52 05/22/18 04:00 Temperature 98.4 F 98.5 F 98.5 F Pulse Rate 83 85 74 Respiratory Rate 17 17 17 Blood Pressure 129/60 151/65 H 131/59 L Pulse Oximetry 96 97 97 05/22/18 07:05 05/22/18 09:00 05/22/18 09:31 Temperature 97.6 F Pulse Rate 76 86 91 H Respiratory Rate 16 16 18 Blood Pressure 138/63 137/68 Pulse Oximetry 96 Intake & Output 05/21/18 05/22/18 05/22/18 18:59 06:59 18:59 Other: # Voids 1 Date of Last Bowel Movement 05/19/18 Narrative: GENERAL: Frail elderly male patient in [facility]. SKIN: Warm and dry. No rash. HEENT: Normocephalic. Atraumatic. Pupils equal and round. Mucous membranes pink and moist. NECK: Supple. Trachea midline. CARDIOVASCULAR: Regular rate and rhythm. No murmur appreciated. RESPIRATORY: No accessory muscle use. Clear to auscultation however with poor inspiratory effort. Breath sounds equal bilaterally. GASTROINTESTINAL: Abdomen soft, non-tender, nondistended. Normoactive bowel sounds x4. MUSCULOSKELETAL: No obvious deformities. Trace bilateral ankle edema. NEUROLOGICAL: Awake and alert. No obvious cranial nerve deficits. Generalized weakness throughout all extremities, 3-4/5. Dysarthria. Results Procedures completed during hospitalization: None. Labs on day of discharge: Labs from last 24 hours 05/21/18 05/21/18 18:21 13:41 POC Glucose 139 H 154 H - Impressions ITS Impressions Chest X-Ray 05/19/18 10:19 CONCLUSION: 1. Stable parenchymal scarring the left base. Lungs are otherwise clear. 2. Stable postsurgical changes with intact median sternotomy wires and prior TAVR Discharge Plan - Discharge Disposition Patient Disposition: 03 Discharge to SNF - Discharge Condition Condition: Stable - Discharge Order Discharge Orders: Discharge Order (Routine); Ordered 05/20/18 Ordered By: Domingo Angulo - Discharge Details Anticipated Discharge Date: 05/22/18 - Physicians Team Primary Care Provider: Kalin Palma Attending Provider: Alok Ram Other Providers: Kai Palacio MD ; Mauri Dotson MD ; Brandie Diego
[2018-05-22 11:01] VITALS: TEMP 97.8; O2SAT 95
== END 2018-05-22 12:31 ==
LOC: NEPC 09:13 → NEDA 12:47 → NEPHCDU 14:53
PROVIDERS: ADMIT Internal Medicine; ATTEND Internal Medicine